=== PATIENT | male | born 1960 | race Caucasian/White ===

== ENCOUNTER 2020-05-09 04:57 | Inpatient (IN) | payer MEDICARE, MEDICAID, SELFPAY ==
[2020-05-09] VITALS (50 sets, daily range): BP systolic 51–144; BP diastolic 38–103; PULSE 90–162; RESP 16–48; TEMP 36–36.7; O2SAT 94–100; BMI 17.8; BMI 17.7
--- NOTE | ~2020-05-09 | CT_ITS ---
EXAMINATION: CT brain wo con DATE: 05/09/2020 07:38 INDICATION: Unresponsive. TECHNIQUE: Computed tomography (CT) of the head was performed without intravenous contrast. Sagittal and coronal reconstructions were performed. The mA was adjusted according to patient size. Iterative reconstruction technique was employed. The dose-length product was 529.67 mGy-cm. COMPARISON: None FINDINGS: No acute intracranial hemorrhage, acute infarction or abnormal extra axial fluid collection. Symmetri c enlargement of the ventricles which is disproportionate to the sulci. There is additional access va cuo dilation of the anterior and temporal horns of the lateral ventricles with corresponding encephal omalacia in the anterior aspect of the bilateral frontal frontal and temporal lobes. This could be re lated to prior infarcts although distribution suggests this may represent sequela of prior trauma. No mass/mass effect. Mucous retention cyst in the left sphenoid sinus. The orbits are normal. The left mastoid is hyperpneumatized. IMPRESSION: 1. No acute intracranial process. 2. Encephalomalacia in the anterior bilateral frontal lobes and temporal lobes which could represent sequela of old infarcts or trauma. Correlate with clinical history. 3. Prominent symmetric enlargement of the ventricles which is out of proportion to the sulci which co uld be related to either central predominant atrophy or normal pressure hydrocephalus (NPH: clinical triad ataxia/gait disturbance, dementia, urinary incontinence). Reviewed, dictated and finalized at location A. RVATIONS SPECIALIST IMPRESSION: 1. No acute intracranial process. 2. Encephalomalacia in the anterior bilateral frontal lobes and temporal lobes which could represent sequela of old infarcts or trauma. Correlate with clinica l history. 3. Prominent symmetric enlargement of the ventricles which is out of proportion to the sulci which could be related to either central predominant atrophy or n ormal pressure hydrocephalus (NPH: clinical triad ataxia/gait disturbance, shyla ntia, urinary incontinence).
--- NOTE | ~2020-05-09 | XR_ITS ---
EXAMINATION: XR abdomen/kub 1V DATE: 05/15/2020 09:58 INDICATION: Gastrostomy tube dysfunction. TECHNIQUE: A supine view of the abdomen on 2 radiographs was obtained. COMPARISON: Abdomen radiograph 05/09/2020 FINDINGS: There are no dilated loops of bowel. There is a gastrostomy tube overlying the left upper q uadrant. IMPRESSION: 1. Gastrostomy tube overlying the left upper quadrant. Reviewed, dictated and finalized at location A. R MAT MACHINE OPERATOR
--- NOTE | ~2020-05-09 | XR_ITS ---
EXAMINATION: XR chest 1V portable DATE: 05/16/2020 05:41 INDICATION: Respiratory failure. TECHNIQUE: A single frontal view of the chest was obtained. COMPARISON: Chest single view 05/15/2020, chest CT 05/09/2020 FINDINGS: There is a reticulonodular pattern throughout the lungs bilaterally. No pleural effusion or pneumothorax. The heart size is normal. The endotracheal tube tip is 1.8 cm above the ashleigh. A righ t internal jugular central venous catheter is seen with tip in the superior vena cava. IMPRESSION: 1. Stable diffuse lung disease, consistent with pneumonia. Reviewed, dictated and finalized at location A. AULIC DESIGN ENGINEER
--- NOTE | ~2020-05-09 | XR_ITS ---
EXAMINATION: XR chest ET placement, XR abdomen NG/feed tube insert DATE: 05/09/2020 06:12 INDICATION: Respiratory distress. Endotracheal tube placement. Nasogastric tube placement TECHNIQUE: 1. Frontal view of the chest was obtained. 2. Portable AP supine view of the abdomen was obtained. COMPARISON: None FINDINGS: Endotracheal tube tip 2.5 cm above the ashleigh. Nasogastric tube tip in proximal side port in the body of the stomach. Scattered subtle reticulonodular opacities is prominent at the right lower lung zone. No pleural effu ashley or pneumothorax. The cardiomediastinal silhouette is normal. A few old right rib fractures. IMPRESSION: 1. Lines and tubes in expected positions. 2. Subtle reticulonodular pattern which could represent mild pulmonary edema or pneumonia. Reviewed, dictated and finalized at location A. SPRING FORMER IMPRESSION: 1. Lines and tubes in expected positions. 2. Subtle reticulonodular pattern which could represent mild pulmonary edema or pneumonia.
--- NOTE | ~2020-05-09 | CT_ITS ---
EXAMINATION: CTA chest PE protocol DATE: 05/09/2020 07:38 INDICATION: Respiratory distress requiring ventilation TECHNIQUE: Computed tomography (CT) pulmonary angiogram of the chest was performed with 100 mL Omnipa que-350 intravenous contrast. Additional 3D reconstructions utilizing coronal maximum intensity proje ction (MIP) were performed. Automated exposure control and iterative reconstruction technique were em ployed. The dose-length product was 210.33 mGy-cm. COMPARISON: None FINDINGS: Good contrast opacification of the pulmonary arteries. There is moderate streak artifact from dense c ontrast in the superior vena cava and right atrium. Mild to moderate scattered respiratory motion art ifact. Together this decreases sensitivity in the segmental and particularly at the subsegmental pulm onary arteries throughout both lungs. New innumerable small centrilobular nodules throughout both monica gs with multiple additional small regions of more patchy consolidation throughout both lungs consiste nt with multifocal pneumonia. No pulmonary edema, pleural effusion or pneumothorax. Heart size is nor mal. No pericardial effusion. Mild likely reactive bilateral hilar and mediastinal lymphadenopathy. E ndotracheal tube tip 2.0 cm above the ashleigh. Nasogastric tube extends into the stomach. Visualized u pper abdomen is unremarkable. Several old healed bilateral rib fractures.. IMPRESSION: 1. No pulmonary embolism but limited study due to motion and streak artifact which decreases sensitiv ity for pulmonary embolism in the segmental and more significantly the subsegmental pulmonary arterie s. 2. Innumerable diffuse small centrilobular nodules and small regions of patchy consolidation consiste nt with widespread pneumonia including atypical fungal or mycobacterial. Reviewed, dictated and finalized at location A. E CUTTING MACHINE OPERATOR HELPER IMPRESSION: 1. No pulmonary embolism but limited study due to motion and streak artifact wh ich decreases sensitivity for pulmonary embolism in the segmental and more sign ificantly the subsegmental pulmonary arteries. 2. Innumerable diffuse small centrilobular nodules and small regions of patchy consolidation consistent with widespread pneumonia including atypical fungal or mycobacterial.
--- NOTE | ~2020-05-09 | XR_ITS ---
EXAMINATION: XR chest 1V portable DATE: 05/17/2020 06:17 INDICATION: Respiratory failure. TECHNIQUE: A single frontal view of the chest was obtained. COMPARISON: Chest CT 05/09/2020, chest single view 05/16/2020 FINDINGS: There are scattered small nodules in the lungs bilaterally. No pleural effusion or pneumoth orax. The heart size is normal. The endotracheal tube tip is 1.6 cm above the ashleigh. A right interna l jugular central venous catheter is seen with tip in the superior vena cava. There are old healed bi lateral rib fractures. IMPRESSION: 1. Stable diffuse lung disease, consistent with pneumonia. Reviewed, dictated and finalized at location A. L CAMPAIGN SPECIALIST
--- NOTE | ~2020-05-09 | US_ITS ---
EXAMINATION: US venous doppler LE RT DATE: 05/10/2020 11:28 INDICATION: Right lower limb swelling. TECHNIQUE: Grayscale ultrasound images without and with compression and Doppler ultrasound images of the right lower extremity veins were obtained. COMPARISON: None. FINDINGS: The visualized portions of right common femoral vein, profunda (deep) femoral vein, femoral vein, pop liteal vein, peroneal veins, posterior tibial veins, and greater saphenous vein outflow are patent. IMPRESSION: 1. No deep venous thrombosis. Reviewed, dictated and finalized at location B. TRICAL WIRING LINEMAN
--- NOTE | ~2020-05-09 | XR_ITS ---
EXAMINATION: XR chest 1V portable DATE: 05/15/2020 05:46 INDICATION: Pneumonia. TECHNIQUE: A single frontal view of the chest was obtained. COMPARISON: Chest single view 05/14/2020, chest CT 05/09/2020 FINDINGS: There are mild airspace opacities scattered throughout the lungs bilaterally. No pleural ef fusion or pneumothorax. The heart size is normal. The endotracheal tube tip is 2.4 cm above the jason a. A right internal jugular central venous catheter is seen with tip in the superior vena cava. IMPRESSION: 1. Stable diffuse lung disease, consistent with pneumonia. Reviewed, dictated and finalized at location A. CTION SOCIAL WORKER
--- NOTE | ~2020-05-09 | XR_ITS ---
EXAMINATION: XR chest 1V portable DATE: 05/10/2020 05:53 INDICATION: Respiratory failure TECHNIQUE: frontal view of the chest was obtained. COMPARISON: Chest radiograph dated 05/09/2020 FINDINGS: Endotracheal tube tip 1.3 cm above the ashleigh. Is a gastric tube tip in proximal side port in the sto mach. Right internal jugular central venous catheter with distal tip in the caudal superior vena cava . Elevation of the left hemidiaphragm. No significant interval change in a diffuse reticulonodular cari karyna throughout both lungs. No pleural effusion or pneumothorax. The cardiomediastinal silhouette is n ormal. IMPRESSION: 1. Diffuse bilateral lung disease concerning for pneumonia. Reviewed, dictated and finalized at location A. ARCH STATISTICIAN
--- NOTE | ~2020-05-09 | XR_ITS ---
EXAMINATION: XR chest 1V portable DATE: 05/13/2020 06:00 INDICATION: Respiratory failure TECHNIQUE: frontal view of the chest was obtained. COMPARISON: Chest radiograph dated 05/12/2020 FINDINGS: Endotracheal tube tip 4.7 cm above the ashleigh. Right internal jugular central venous catheter with di stal tip in the midsuperior vena cava. Interval improvement in the diffuse bilateral reticulonodular pattern and a few scattered subtle patc hy airspace opacities in both lungs. No pleural effusion or pneumothorax. The cardiomediastinal silho uette is normal. IMPRESSION: 1. Right decrease in bilateral diffuse lung disease consistent with improving pneumonia. Reviewed, dictated and finalized at location A. ULTING DATABASE ADMINISTRATOR IMPRESSION: 1. Right decrease in bilateral diffuse lung disease consistent with improving p neumonia.
--- NOTE | ~2020-05-09 | XR_ITS ---
EXAMINATION: XR chest 1V portable DATE: 05/14/2020 05:56 INDICATION: Respiratory failure. TECHNIQUE: A single frontal view of the chest was obtained. COMPARISON: Chest single view 05/13/2020, chest CT 05/09/2020 FINDINGS: There is a reticulonodular pattern throughout the lungs bilaterally. No pleural effusion or pneumothorax. The heart size is normal. The endotracheal tube tip is 1.4 cm above the ashleigh. A righ t internal jugular central venous catheter is seen with tip in the superior vena cava. IMPRESSION: 1. Stable diffuse lung disease, consistent with pneumonia. Reviewed, dictated and finalized at location A. CAR MAINTENANCE MECHANIC
--- NOTE | ~2020-05-09 | XR_ITS ---
EXAMINATION: XR chest 1V portable DATE: 05/11/2020 05:58 INDICATION: Respiratory failure. Mechanical ventilation. TECHNIQUE: frontal view of the chest was obtained. COMPARISON: Chest radiograph dated 05/10/2020 FINDINGS: Endotracheal tube tip 2.2 cm above the ashleigh. Right internal jugular central venous catheter with di stal tip at the caudal superior vena cava. Nasogastric tube tip in proximal side port in the body of the stomach. There appears to been slight improvement in the diffuse reticular nodular pattern throughout both monica gs. No pleural effusion or pneumothorax. The cardiomediastinal silhouette is normal. IMPRESSION: 1. Apparent improvement in diffuse bilateral lung disease consistent with pneumonia. Reviewed, dictated and finalized at location A. STERILIZER IMPRESSION: 1. Apparent improvement in diffuse bilateral lung disease consistent with pneum onia.
--- NOTE | ~2020-05-09 | XR_ITS ---
EXAMINATION: XR chest 1V portable DATE: 05/12/2020 06:10 INDICATION: Respiratory failure TECHNIQUE: frontal view of the chest was obtained. COMPARISON: Chest radiograph dated 05/11/2020 FINDINGS: Endotracheal tube now extends a couple millimeter beyond the ashleigh into the right mainstem bronchus. Right internal jugular central venous catheter with distal tip at the caudal superior vena cava. No significant interval change attending for differences in technique in the diffuse bilateral reticu lonodular pattern and subtle right infrahilar airspace opacities. No pleural effusion or pneumothorax . The cardiomediastinal silhouette is normal. IMPRESSION: 1. Endotracheal tube tip just within the right mainstem bronchus. Recommend withdrawal by 2.5 cm. Fin dings were discussed with Arron Davis, the nurse caring for the patient, at 7:55 AM. 2. No significant interval change in diffuse bilateral lung disease consistent with pneumonia. Reviewed, dictated and finalized at location A. NICIAN SEMICONDUCTOR DEVELOPMENT IMPRESSION: 1. Endotracheal tube tip just within the right mainstem bronchus. Recommend wit hdrawal by 2.5 cm. Findings were discussed with Arron Davis, the nurse caring for the patient, at 7:55 AM. 2. No significant interval change in diffuse bilateral lung disease consistent with pneumonia.
--- NOTE | ~2020-05-09 | XR_ITS ---
EXAMINATION: XR chest port-a-cath/central INDICATION: Central line insertion TECHNIQUE: Portable AP chest at 2211 hours COMPARISON: 0555 hours FINDINGS: A right internal jugular central venous catheter is been inserted which ends with its tip i n the distal superior vena cava. There is no pleural effusion or pneumothorax. The endotracheal tube ends approximately 2.9 cm above the ashleigh. The nasogastric tube is in the stomach. Diffuse patchy ai rspace opacities persist without significant change. The cardiomediastinal silhouette is stable. IMPRESSION: 1. Right internal jugular central venous catheter insertion without pneumothorax. 2. Diffuse airspace opacities, consistent with pneumonia. Reviewed, dictated and finalized at location A. OR STRATEGY ANALYST IMPRESSION: 1. Right internal jugular central venous catheter insertion without pneumothora x. 2. Diffuse airspace opacities, consistent with pneumonia.
--- NOTE | 2020-05-09 05:00 | ECG_ITS ---
Measurements Intervals [place] Rate: 148 P: 68 MT: 130 QRS: -60 QRSD: 80 T: 43 QT: 267 QTc: 420 Interpretive Statements SINUS TACHYCARDIA, POSSIBLE ATRIAL FLUTTER LEFT AXIS DEVIATION CANNOT RULE OUT SEPTAL INFARCT, AGE INDETERMINATE BASELINE ARTIFACT- II, III, AVF, V1-V2, V5-V6 ABNORMAL ECG Electronically Signed On 05-09-2020 7:07:12 MAIL CARRIER by Leon Balderas D.O.
--- NOTE | 2020-05-09 05:10 | PC.NURSE ---
KALEE Solomon in room. Verbal order read back. 20mg Etomidate given at 0510 100mg succs given at 0511 Intubation at 0515, 7.5 ET tube, 23 at the lips
[2020-05-09 05:20] LABS: Basophils Absolute Auto 0.1 K/mm3 (0.0-0.1); Basophils Percent Auto 0.3 % (0.2-1.2); Eosinophils Absolute Auto 0.3 K/mm3 (0-0.3); Hematocrit 39.5 % (42.0-52.0); Hemoglobin 11.8 g/dL (14.0-18.0); Immature Granulocyte Absolute 0.28 K/mm3 (0.00-0.031); Immature Granulocyte Percent A 0.8 % (0-0.5); Lymphocytes Absolute Auto 2.67 K/mm3 (0.9-3.2); Mean Corpuscular HGB Conc 29.9 g/dl (32-36); Mean Corpuscular Hemoglobin 24.3 pg (26-34); Mean Corpuscular Volume 81.3 fl (80-100); Mean Platelet Volume 10.4 fl (7.4-10.4); Monocytes Absolute Auto 1.5 K/mm3 (0.1-0.6); Monocytes Percent Auto 4.6 % (2.6-8.5); Neutrophils Absolute Auto 28.4 K/mm3 (1.3-6.7); Neutrophils Percent Auto 85.3 % (45.5-73.1); Platelet Count Result 651 k/mm3 (150-375); Red Blood Count 4.86 M/mm3 (4.6-6.20); Red Cell Distribution Width 19.7 % (11.5-14.5); White Blood Count 33.3 K/mm3 (4.5-10.0)
[2020-05-09] MEDS: SODIUM CHLORIDE 0.9% IV 1,000 ML 999 ML IV CONT ×3 (05:30→10:05)
[2020-05-09 05:35] LABS: Alanine Aminotransferase 23 U/L (4-50); Albumin Level 3.9 g/dL (3.5-5.1); Alkaline Phosphatase 112 U/L (38-126); Anion Gap 8 mmol/L (8-16); Aspartate Amino Transferase 52 U/L (17-59); Bilirubin,Total 0.4 mg/dL (0.2-1.3); Blood Urea Nitrogen 18 mg/dL (9-20); Calcium 9.6 mg/dL (8.4-10.2); Carbon Dioxide 31 mmol/L (22-30); Chloride 102 mmol/L (98-107); Estimated CRCL calculation 59 ml/min; Estimated Glomerular Filt Rate > 60; Glucose 147 mg/dL (75-110); Magnesium 2.2 mg/dL (1.6-2.3); Potassium 5.1 mmol/L (3.4-5.0); Sodium 141 mmol/L (137-145)
--- NOTE | 2020-05-09 05:36 | ED.SOB ---
HPI - SOB/Dyspnea General Chief Complaint: Shortness of Breath/Dyspnea <Renata Solomon MD - Last Filed: 05/09/20 23:45> Stated Complaint: unresponsive resp distress <Renata Solomon MD - Last Filed: 05/09/20 23:45> Time Seen by Provider: 05/09/20 05:00 <Renata Solomon MD - Last Filed: 05/09/20 23:45> Source: EMS <Renata Solomon MD - Last Filed: 05/09/20 23:45> Mode of arrival: EMS <Renata Solomon MD - Last Filed: 05/09/20 23:45> Limitations: clinical condition <Renata Solomon MD - Last Filed: 05/09/20 23:45> History of Present Illness HPI Narrative: This patient is a 60 year old male who presents from [facility] for evaluation of respiratory distress. Nursing staff reports they noticed patient was in respiratory distress this morning when they went into his room. His oxygen saturation was 70% on room . They report patien was discharged from [facility] for an issue with g tube feedings. It is unclear what patient's medical history is at this point. EMS placed patient on NRB due to his respiratory distress. PAtient is nonverbal , but his baseline cognitive function is unclear. <Renata Solomon MD - Last Filed: 05/09/20 23:45> MD elicited complaint: shortness of breath <Renata Solomon MD - Last Filed: 05/09/20 23:45> Related Data Home Medications: Home Medications Medication Instructions Recorded Confirmed acetaminophen 650 mg PO Q6H PRN 05/09/20 buspirone 10 mg PO TID 05/09/20 diltiazem HCl 30 mg PO TID 05/09/20 famotidine 20 mg PO BID 05/09/20 folic acid 20 mg PO DAILY 05/09/20 ipratropium-albuterol 3 ml INHALATION QID PRN 05/09/20 lorazepam [Ativan] 0.5 mg PO DAILY PRN 05/09/20 <Renata Solomon MD - Last Filed: 05/09/20 23:45> Allergies/Adverse Reactions: Allergies Allergy/AdvReac Type Severity Reaction Status Date / Time No Known Allergies Allergy Verified 05/09/20 08:39 <Renata Solomon MD - Last Filed: 05/09/20 23:45> Review of Systems Review of Systems: ROS unobtainable: Yes unobtainable due to medical condition <Renata Solomon MD - Last Filed: 05/09/20 23:45> [facility] Past Medical History Medical History: Medical History (Updated 05/09/20 @ 09:52 by Kofi Bolaños MD) Anemia Anxiety COPD (chronic obstructive pulmonary disease) Disorder of autonomic nervous system Dysphagia With G-Tube placement Encephalopathy chronic Hydrocephalus Hypertension Paroxysmal tachycardia <Renata Solomon MD - Last Filed: 05/09/20 23:45> Surgical History Surgical History: Surgical History History of tracheostomy x2 <Renata Solomon MD - Last Filed: 05/09/20 23:45> Family History Family History: Family History Mother Endometrial cancer Father Hypertension Sibling Seizure <Renata Solomon MD - Last Filed: 05/09/20 23:45> Social History Social History: Social History Social History: No hx of tobacco use but heavy alcohol use per sister. She was unsure if patient has hx of drug use. Patient is a [place] [facility] resident. He is full code Smoking status: Never smoker Alcohol intake: never Substance use: unknown Gender identity (if verbalized by the patient): Male Spiritual care concerns: No <Renata Solomon MD - Last Filed: 05/09/20 23:45> Exam Const: General: ill appearing acutely <Renata Solomon MD - Last Filed: 05/09/20 23:45> Other: patient will eyes open does not seem to respond <Renata Solomon MD - Last Filed: 05/09/20 23:45> HENMT: Head: normocephalic and atraumatic <Renata Solomon MD - Last Filed: 05/09/20 23:45> Throat: other (old tracheostomy scar) <Renata Solomon MD - Last Filed: 05/09/20 23:45> Resp: Effort & Inspection: labored, tachypneic and uses
[2020-05-09 05:41] LABS: CRP 5.5 mg/dL (<1.0)
[2020-05-09] MEDS: LORazepam INJ (*CRX) 2 MG/ML VIAL IV PUSH (05:41)
[2020-05-09] MEDS: fentaNYL CITRATE INJ (*CRX) 100 MCG/2 ML VIAL 50 MCG IV PUSH (05:44)
[2020-05-09 05:47] LABS: NT Pro B Type Natriuretic Pept 187 PG/ML (5-100); Troponin I < 0.012 ng/mL (0.000-0.034)
[2020-05-09] MEDS: PROPOFOL IV EMULSION 100 ML 1.49 MG IV CONT (05:49)
[2020-05-09 05:54] LABS: Alveolar/Arterial O2 Gradient 543.5 mmHg; HCO3 ABG 25.2 mEq/l (22.0-26.0); Oxygen Content ABG 16.2 %vol (16.0-22.0); Oxygen Saturation ABG 98.1 % (95.0-100.0); PCO2 ABG 48.3 mmHg (35.0-45.0); PO2 ABG 121.2 mmHg (80.0-100.0); Total Hemoglobin 11.7 g/dL (12.0-18.0); pH ABG 7.335 (7.350-7.450)
[2020-05-09 05:55] LABS: Device NON-REBREATHER MASK; Fractional Inspired Oxygen 100 %; Modified Allen's Test Pass; PO2 FiO2 Ratio Arterial Blood 1.21 %; Site Drawn LEFT RADIAL
[2020-05-09 05:55] LABS: Lactic Acid Reflex 3.9 mmol/L (0.7-2.1)
--- NOTE | 2020-05-09 05:56 | PC.NURSE ---
Radiology at bedside
[2020-05-09] MEDS: ROCURONIUM BROMIDE 50 MG/5 ML VIAL IV PUSH (06:06)
--- NOTE | 2020-05-09 06:06 | PC.NURSE ---
Dr. Solomon stopped propfol drip.
[2020-05-09 06:45] LABS: INR 1.2; Prothrombin Time 15.5 Seconds (11.1-14.7)
[2020-05-09 06:46] LABS: Partial Thromboplastin Time 39.4 SECONDS (22.3-36.8)
[2020-05-09 06:52] LABS: Add Urine Microscopic? YES; Appearance Urine Clear (Clear); Bilirubin Urine Negative (Negative); Blood Urine Negative (Negative); Color Urine Yellow (Yellow); Glucose Urine UA Negative (Negative); Ketones Urine Negative (Negative); Leukocyte Esterase Ur Trace LEU/UL (Negative); Mucus Urine Rare /lpf; Nitrate Urine Negative (Negative); Protein Urine 1+ mg/dL (Negative); Specific Grav Ur 1.028 (1.001-1.035); Urobilinogen Urine Negative mg/dL (<2.0)
--- NOTE | 2020-05-09 07:25 | PM.IMHP ---
H&P: HPI History of Present Illness Date/Time: 05/09/20 07:25 Chief complaint: Acute Respiratory failure with hypoxia Narrative: King Sullivan is a 60yo male with chronic encephalopathy and HTN here for acute respiratory distress. Patient currently intubated and thus unable to provide history. Patient resides at a custodial and has hx of respiratory failure with trach and dysphagia with G-tube in place. Spoke with nurse at [facility] (Nicki). Patient has chronic nausea with scheduled Zofran. There is concern for chronic aspiration. Mental status alert to himself. He will shake head Y/N but does not respond in general. Patient recently at [facility] for G-tube issue and returned to custodial on 05/07. Patient was tested for COVID on 05/08 with results pending (this is routine). Patient developed respiratory difficulty this morning. He had a BP 110/78, pulse 148, RR 32 76% on room air. EMS called: BP 148/94, pulse 150, RR 30 100% on NRB. In the ER, BP 144/103, HR 162 and 48 RR. WBC 33.3, Hgb 11.8, Potassium 5.1, Lactic 3.9. CXR showing patchy airspace opacities. CT brain showing hydrocephalus and encephalomalacia but no acute process. CT Chest pending. Patient intubated in the ED and admitted for further care. Review of Systems Review of Systems: ROS unobtainable: Yes unobtainable due to mental status PMFSH Past Medical History Medical History (Updated 05/11/20 @ 20:23 by Clint Leigh MD) Anemia Anxiety COPD (chronic obstructive pulmonary disease) Disorder of autonomic nervous system Dysphagia With G-Tube placement Encephalopathy chronic Hydrocephalus Hypertension Paroxysmal tachycardia Surgical History Surgical History History of tracheostomy x2 Family History Family History Mother Endometrial cancer Father Hypertension Sibling Seizure Social History Social History Social History: No hx of tobacco use but heavy alcohol use per sister. She was unsure if patient has hx of drug use. Patient is a custodial resident. He is full code Smoking status: Never smoker Alcohol intake: never Substance use: unknown Gender identity (if verbalized by the patient): Male Spiritual care concerns: No Meds Home Medications and Allergies Home Medications Medication Instructions Recorded Confirmed Type acetaminophen 650 mg PO Q6H PRN 05/09/20 05/10/20 History buspirone 10 mg PO TID 05/09/20 05/10/20 History diltiazem HCl 30 mg PO Q6H 05/09/20 05/10/20 History famotidine 20 mg PO BID 05/09/20 05/10/20 History ipratropium-albuterol 3 ml INHALATION QID PRN 05/09/20 05/10/20 History lorazepam [Ativan] 0.25 mg PO HS PRN 05/09/20 05/10/20 History folic acid 1 mg PO DAILY 05/10/20 05/10/20 History Allergies Allergy/AdvReac Type Severity Reaction Status Date / Time No Known Allergies Allergy Verified 05/09/20 08:39 Vital Signs Vital Signs - 24 hr 05/09/20 05:01 05/09/20 05:30 05/09/20 05:49 Temperature 97.8 F Pulse Rate 162 H 121 H 115 H Respiratory Rate 48 H Blood Pressure 144/103 H Pulse Oximetry 96 99 05/09/20 06:50 Temperature Pulse Rate Respiratory Rate Blood Pressure 110/80 Pulse Oximetry Exam Narrative: Exam Narrative: AF 97.8 135/90 126 21 100% MV Gen - chronically ill appearing male currently intubated HEENT - normocephalic. Atraumatic. Pupils mildly reactive. NGT secured. Oropharynx not visualized due to ETT secured. Neck - neck was supple. No dominant adenopathy or masses. Chest - lungs clear anteriorly and in flanks CV - tachycardic, regular. S1-S2. Abd - abdomen was soft. Nondistended. Positive bowel sounds. GTube site clean and dry Ext - no pedal edema. bilateral LE contractures Neuro - patient is sedated Psych - unable to assess Skin - warm and dry. No rashe
--- NOTE | 2020-05-09 08:21 | PC.NURSE ---
Pt bucking at the tube. Increased rate to 10 mcg
[2020-05-09] MEDS: SODIUM CHLORIDE 0.9% IV 1,000 ML 125 ML IV CONT ×3 (08:30→18:53)
[2020-05-09] MEDS: PROPOFOL IV EMULSION 200 MG/20 ML VIAL 20 MG IV PUSH (08:36)
[2020-05-09 08:41] LABS: Reflex Lactic Acid Yes or No Add Lactic
--- NOTE | 2020-05-09 09:10 | ADMGEN ---
This patient, King Sullivan, was admitted to Intensive Care Unit-5. Patient/family oriented to hospital policies and general routines including ID bracelet, bed and alarms, visiting hours, pain management, procedures, bathroom and other care routines, personal items, smoking policy, room service/diet, and visiting hours. Information on how to activate the Rapid Response Team has been discussed. Patient/Family are encouraged to report perceived risks to care and to ask questions if they do not understand what they are told or what they should do.
[2020-05-09] MEDS: LORazepam INJ (*CRX) 2 MG/ML VIAL (09:20)
--- NOTE | 2020-05-09 09:43 | WPDCNINT ---
Assessment and Plan Assessment and plan (1) Acute respiratory failure with hypoxemia: Code(s): J96.01 - Acute respiratory failure with hypoxia Status: Acute Assessment and Plan: Acute Respiratory failure secondary to pneumonia Continue full mechanical ventilation support to prevent hypoxemia/hypercarbia and end organ damage. ABG, vent settings and CT chest reviewed CT showed IMPRESSION: 1. No pulmonary embolism but limited study due to motion and streak artifact which decreases sensitivity for pulmonary embolism in the segmental and more significantly the subsegmental pulmonary arteries. 2. Innumerable diffuse small centrilobular nodules and small regions of patchy consolidation consistent with widespread pneumonia including atypical fungal or mycobacterial. Will repeat ABG now. Low tidal volume ventilation strategy to prevent volutrauma Bronchodilators (2) Severe sepsis: Code(s): A41.9 - Sepsis, unspecified organism; R65.20 - Severe sepsis without septic shock Status: Acute Assessment and Plan: Secondary to pneumonia Blood culture sent and pending Check sputum culture Change antibiotics to vancomycin and cefepime until cultures are back Recheck lactic acid level Will give another 1 L saline bolus. Patient has received 2 L in the ER Continue IV fluid (3) COPD (chronic obstructive pulmonary disease): Code(s): J44.9 - Chronic obstructive pulmonary disease, unspecified Status: Acute Assessment and Plan: Bronchodilators (4) Person under investigation for COVID-19: Code(s): Z20.828 - Contact with and (suspected) exposure to other viral communicable diseases Status: Acute Assessment and Plan: COVID-19 suspected. SARS-CoV-2 PCR sent and results pending Patient is in Airborne, Droplet and Contact Isolation (5) DVT prophylaxis: Code(s): Z29.9 - Encounter for prophylactic measures, unspecified Status: Acute Assessment and Plan: Lovenox (6) Encephalopathy: Code(s): G93.40 - Encephalopathy, unspecified Status: Acute Assessment and Plan: Patient is nonverbal at baseline Head CT done in ER MPRESSION: 1. No acute intracranial process. 2. Encephalomalacia in the anterior bilateral frontal lobes and temporal lobes which could represent sequela of old infarcts or trauma. Correlate with clinical history. 3. Prominent symmetric enlargement of the ventricles which is out of proportion to the sulci which could be related to either central predominant atrophy or normal pressure hydrocephalus (NPH: clinical triad ataxia/gait disturbance, dementia, urinary incontinence) (7) Dysphagia: Code(s): R13.10 - Dysphagia, unspecified Status: Acute Assessment and Plan: Patient has a PEG tube. Place it on low intermittent suction at this time Additional Plan DVT prophylaxis -Lovenox Stress ulcer prophylaxis -start PPI Nutrition -NPO at this Code Status - Full Code Will obtain records from [facility] Total Critical Care Time - 35 minutes Due to a high probability of clinically significant, life threatening deterioration, the patient required my highest level of preparedness to intervene emergently and I personally spent this critical care time directly and personally managing the patient. This critical care time included obtaining a history; examining the patient; pulse oximetry; ordering and review of studies; arranging urgent treatment with development of a management plan; evaluation of patient's response to treatment; frequent reassessment; and discussions with other providers. It was exclusive of separately billable procedures and treating other patients and teaching time. Please see Assessment and Plan section and the rest of the note for further information on patient assessment and treatment Demi Chef Consult Note Consult date: 05/09/20 Time Seen: 09:20 HPI: King Sullivan is a 60 year old male w
[2020-05-09] MEDS: FENTANYL 2,500MCG/NS250ML(*CRX 2,500 MCG/250 ML BAG IV CONT (09:55)
[2020-05-09] MEDS: ENOXAPARIN 40 MG/0.4 ML SYRINGE SUB-Q (11:02)
[2020-05-09] MEDS: PANTOPRAZOLE SODIUM IV 40 MG VIAL IV PUSH (11:02)
[2020-05-09] MEDS: MIDAZOLAM HCL (*CRX) 2 MG/2 ML VIAL 4 MG IV PUSH (11:45)
[2020-05-09 12:22] LABS: Anion Gap 7 mmol/L (8-16); Blood Urea Nitrogen 17 mg/dL (9-20); Calcium 7.8 mg/dL (8.4-10.2); Carbon Dioxide 26 mmol/L (22-30); Chloride 107 mmol/L (98-107); Estimated CRCL calculation 59 ml/min; Estimated Glomerular Filt Rate > 60; Glucose 117 mg/dL (75-110); Lactic Acid Reflex 1.8 mmol/L (0.7-2.1); Potassium 4.3 mmol/L (3.4-5.0); Sodium 140 mmol/L (137-145)
[2020-05-09] MEDS: busPIRone HCL 10 MG TABLET FEED TUBE ×2 (12:46→16:53)
[2020-05-09 13:19] LABS: Alveolar/Arterial O2 Gradient 327.3 mmHg; Base Excess ABG -4.1 mEq/l (+/-2.0); Fractional Inspired Oxygen 65 %; HCO3 ABG 22.1 mEq/l (22.0-26.0); Oxygen Content ABG 13.4 %vol (16.0-22.0); Oxygen Saturation ABG 95.7 % (95.0-100.0); Oxyhemoglobin 94.7 % THb (90.0-100.0); PCO2 ABG 45.3 mmHg (35.0-45.0); PO2 ABG 86.9 mmHg (80.0-100.0); PO2 FiO2 Ratio Arterial Blood 1.34 %; pH ABG 7.306 (7.350-7.450)
[2020-05-09 13:20] LABS: Arterial Blood Gas PEEP 5 cmH2O; Arterial Blood Gas Tidal Volume 400 ml; Arterial Blood Gas Vent Mode ASSIST CONTROL; Arterial Blood Gas Ventilator rate 16 /MIN; Device VENTILATOR; Modified Allen's Test Pass; Site Drawn RIGHT RADIAL
[2020-05-09 13:47] LABS: Glucose Point of Care 113 (65-105)
[2020-05-09 14:21] LABS: SARS-CoV-2 RNA PCR Negative
[2020-05-09] MEDS: SODIUM CHLORIDE 0.9% IV 500 ML IV CONT (19:10)
[2020-05-09] MEDS: NOREPINEPHRINE 8 MG/D5W 250 ML 8 MG/250 ML BAG 9.38 MG IV CONT (22:00)
--- NOTE | 2020-05-09 22:18 | P.PCNBED_ITS ---
Procedures Central Line Placement Right IJ: Central Line Date: 05/09/20 Central Line Time: 21:45 The patient/family/POA understand(s) and acknowledge(s) the need to proceed with central venous catheter insertion as an important element of the patient's clinical management.: Yes Time Out Performed: Yes Patient Position: supine Patient placed on monitor/pulse ox: Yes Provider Prep: mask, sterile gown, sterile gloves, Max. sterile barrier precautions, cap and hand hygiene with conventional soap/water or alcohol based hand rub Central line prep: 2% Chlorhexidine scrub Central line lumen inserted: triple [place]: 7 Length (cm): 16 Depth of Insertion (cm): 15 Post Procedure: sutured in place, good blood return, all ports aspirated, flushed, capped, transparent dressing, securement product and aseptic technique maintained throughout procedure Post procedure x-ray: tip of catheter in good position and no pneumothorax seen Patient tolerated procedure: well Complications: none Additional comments: Date of service was 05/09/2020 at 21:45 hrs.
[2020-05-10] VITALS (34 sets, daily range): BP systolic 85–140; BP diastolic 56–87; PULSE 82–114; RESP 16–19; TEMP 36.2–36.7; O2SAT 96–99; BMI 21.0
[2020-05-10] MEDS: SODIUM CHLORIDE 0.9% IV 1,000 ML 100 ML IV CONT (03:28)
[2020-05-10] MEDS: CENTRAL LINE FLUSH 10 ML IV PUSH ×4 (03:29→23:18)
[2020-05-10 03:34] LABS: Basophils Absolute Auto 0.1 K/mm3 (0.0-0.1); Basophils Percent Auto 0.3 % (0.2-1.2); Eosinophils Absolute Auto 0.9 K/mm3 (0-0.3); Eosinophils Percent Auto 4.2 % (0-4.4); Hematocrit 24.2 % (42.0-52.0); Hemoglobin 7.2 g/dL (14.0-18.0); Immature Granulocyte Percent A 0.5 % (0-0.5); Lymphocytes Absolute Auto 1.32 K/mm3 (0.9-3.2); Lymphocytes Percent Auto 6.4 % (18.3-44.2); Mean Corpuscular HGB Conc 29.8 g/dl (32-36); Mean Corpuscular Hemoglobin 24.4 pg (26-34); Monocytes Absolute Auto 1.4 K/mm3 (0.1-0.6); Monocytes Percent Auto 6.9 % (2.6-8.5); Neutrophils Absolute Auto 16.9 K/mm3 (1.3-6.7); Neutrophils Percent Auto 81.7 % (45.5-73.1); Platelet Count Result 410 k/mm3 (150-375); Red Blood Count 2.95 M/mm3 (4.6-6.20); Red Cell Distribution Width 18.9 % (11.5-14.5); White Blood Count 20.7 K/mm3 (4.5-10.0)
[2020-05-10 04:24] LABS: Alanine Aminotransferase 32 U/L (4-50); Albumin Level 2.4 g/dL (3.5-5.1); Alkaline Phosphatase 67 U/L (38-126); Anion Gap 3 mmol/L (8-16); Aspartate Amino Transferase 72 U/L (17-59); Bilirubin,Total 0.3 mg/dL (0.2-1.3); Blood Urea Nitrogen 17 mg/dL (9-20); Calcium 8.2 mg/dL (8.4-10.2); Carbon Dioxide 25 mmol/L (22-30); Chloride 110 mmol/L (98-107); Estimated CRCL calculation 71 ml/min; Estimated Glomerular Filt Rate > 60; Glucose 89 mg/dL (75-110); Magnesium 1.7 mg/dL (1.6-2.3); Potassium 4.1 mmol/L (3.4-5.0); Sodium 138 mmol/L (137-145)
[2020-05-10 05:57] LABS: Alveolar/Arterial O2 Gradient 132.8 mmHg; Base Excess ABG -4.2 mEq/l (+/-2.0); Carboxyhemoglobin 0.3 % THb (0-2.0); Fractional Inspired Oxygen 40 %; HCO3 ABG 20.7 mEq/l (22.0-26.0); Methemoglobin ABG 0.4 %THb (0-1.5); Oxygen Content ABG 11.6 %vol (16.0-22.0); Oxygen Saturation ABG 97.9 % (95.0-100.0); Oxyhemoglobin 96.7 % THb (90.0-100.0); PCO2 ABG 37.1 mmHg (35.0-45.0); PO2 ABG 109.7 mmHg (80.0-100.0); PO2 FiO2 Ratio Arterial Blood 2.74 %; Reduced Hemoglobin 2.6 %THb (0-5.0); Total Hemoglobin 8.4 g/dL (12.0-18.0); pH ABG 7.365 (7.350-7.450)
[2020-05-10 05:58] LABS: Device VENTILATOR; Modified Allen's Test Unable to perform; Site Drawn RIGHT RADIAL
[2020-05-10 05:59] LABS: Arterial Blood Gas PEEP 5 cmH2O; Arterial Blood Gas Tidal Volume 400 ml; Arterial Blood Gas Vent Mode CMV; Arterial Blood Gas Ventilator rate 16 /MIN
[2020-05-10] MEDS: LACTATED RINGERS 1,000 ML 100 ML IV CONT (07:46)
[2020-05-10] MEDS: busPIRone HCL 10 MG TABLET FEED TUBE ×2 (09:33→17:10)
[2020-05-10] MEDS: PANTOPRAZOLE SODIUM IV 40 MG VIAL IV PUSH (09:34)
[2020-05-10] MEDS: ENOXAPARIN 40 MG/0.4 ML SYRINGE SUB-Q (09:34)
--- NOTE | 2020-05-10 12:31 | PCDIET ---
ICU Rounding Note: MD ordered tube feedings: Vital 1.2 at goal of 50mL/hr x 22 hours/day will provide 1320kcal, 82g protein and 892mL free water. Recommend 30mL water flush every 4 hours at this time. Last recorded weight is 59.1kg which is significantly increased. +I/O. Decreased urine output noted. Bowel Motility: +BM x 1 on 05/09/20. Labs Reviewed: Hgb (7.2), Hct (24.2), Ca (8.2) Meds Noted: Azithromycin, Cefepime, Fentanyl, LR at 100mL/hr, Versed, Levophed, Protonix, Vancomycin Additional Notes: Mepilex to old skin tear on coccyx. Following daily in ICU rounds. Assessing/reassessing every Thursday/Thursday.
[2020-05-10 13:00] LABS: Hematocrit 24.4 % (42.0-52.0); Hemoglobin 7.4 g/dL (14.0-18.0); Mean Corpuscular HGB Conc 30.3 g/dl (32-36); Mean Corpuscular Hemoglobin 24.7 pg (26-34); Mean Corpuscular Volume 81.3 fl (80-100); Mean Platelet Volume 10.1 fl (7.4-10.4); Platelet Count Result 431 k/mm3 (150-375); Red Cell Distribution Width 18.7 % (11.5-14.5); White Blood Count 15.3 K/mm3 (4.5-10.0)
--- NOTE | 2020-05-10 13:41 | WPDINTPN ---
Progress Note: A&P Assessment and Plan (1) Acute respiratory failure with hypoxemia: Code(s): J96.01 - Acute respiratory failure with hypoxia Status: Acute Assessment and Plan: Acute Respiratory failure secondary to pneumonia and septic shock Continue full mechanical ventilation support to prevent hypoxemia/hypercarbia and end organ damage. ABG, vent settings and CT chest reviewed CT showed IMPRESSION: 1. No pulmonary embolism but limited study due to motion and streak artifact which decreases sensitivity for pulmonary embolism in the segmental and more significantly the subsegmental pulmonary arteries. 2. Innumerable diffuse small centrilobular nodules and small regions of patchy consolidation consistent with widespread pneumonia including atypical fungal or mycobacterial. Low tidal volume ventilation strategy to prevent volutrauma Bronchodilators Sedation holiday (2) Septic shock: Code(s): A41.9 - Sepsis, unspecified organism; R65.21 - Severe sepsis with septic shock Status: Acute Assessment and Plan: Secondary to pneumonia Blood and sputum culture sent and pending Continue vancomycin and cefepime until cultures are back Patient adequately volume resuscitated will hold further fluids Continue Levophed Lactic acid has normalized (3) COPD (chronic obstructive pulmonary disease): Code(s): J44.9 - Chronic obstructive pulmonary disease, unspecified Status: Acute Assessment and Plan: Bronchodilators (4) Person under investigation for COVID-19: Code(s): Z20.828 - Contact with and (suspected) exposure to other viral communicable diseases Status: Acute Assessment and Plan: COVID-19 suspected. SARS-CoV-2 PCR sent and was negative Isolation discontinued (5) DVT prophylaxis: Code(s): Z29.9 - Encounter for prophylactic measures, unspecified Status: Acute Assessment and Plan: Lovenox (6) Encephalopathy: Code(s): G93.40 - Encephalopathy, unspecified Status: Acute Assessment and Plan: Patient is nonverbal at baseline and has history of hydrocephalus Head CT done in ER which was consistent with hydrocephalus MPRESSION: 1. No acute intracranial process. 2. Encephalomalacia in the anterior bilateral frontal lobes and temporal lobes which could represent sequela of old infarcts or trauma. Correlate with clinical history. 3. Prominent symmetric enlargement of the ventricles which is out of proportion to the sulci which could be related to either central predominant atrophy or normal pressure hydrocephalus (NPH: clinical triad ataxia/gait disturbance, dementia, urinary incontinence) Sedation holiday today (7) Dysphagia: Code(s): R13.10 - Dysphagia, unspecified Status: Acute Assessment and Plan: Patient has a PEG tube. Start tube feedings today (8) Edema: Code(s): R60.9 - Edema, unspecified Status: Acute Assessment and Plan: Swelling of right foot. Dopplers were done which were negative for DVT Additional Plan DVT prophylaxis -Lovenox Stress ulcer prophylaxis -continue PPI Nutrition -start tube feeding Code Status - Full Code per patient's sister Patient has been in and out of residential facility [facility] in hospitals recently,. He was recently at [facility] and [facility]. Patient now is readmitted within couple of days of his transfer to [facility] Will obtain records from [facility] Total Critical Care Time - 33 minutes Due to a high probability of clinically significant, life threatening deterioration, the patient required my highest level of preparedness to intervene emergently and I personally spent this critical care time directly and personally managing the patient. This critical care time included obtaining a history; examining the patient; pulse oximetry; ordering and review of studies; arranging urge
[2020-05-10] MEDS: NOREPINEPHRINE 8 MG/D5W 250 ML 8 MG/250 ML BAG 11.25 MG IV CONT (17:15)
[2020-05-11] VITALS (23 sets, daily range): BP systolic 97–124; BP diastolic 59–97; PULSE 65–112; RESP 16–34; TEMP 36.3–37.2; O2SAT 95–99
[2020-05-11 03:43] LABS: Hematocrit 22.3 % (42.0-52.0); Hemoglobin 7.1 g/dL (14.0-18.0); Mean Corpuscular HGB Conc 31.8 g/dl (32-36); Mean Corpuscular Hemoglobin 25.3 pg (26-34); Mean Corpuscular Volume 79.4 fl (80-100); Mean Platelet Volume 9.9 fl (7.4-10.4); Platelet Count Result 386 k/mm3 (150-375); Red Blood Count 2.81 M/mm3 (4.6-6.20); Red Cell Distribution Width 18.4 % (11.5-14.5); White Blood Count 8.6 K/mm3 (4.5-10.0)
[2020-05-11] MEDS: CENTRAL LINE FLUSH 10 ML IV PUSH ×4 (05:01→21:15)
[2020-05-11 06:11] LABS: Alanine Aminotransferase 31 U/L (4-50); Albumin Level 2.4 g/dL (3.5-5.1); Alkaline Phosphatase 70 U/L (38-126); Anion Gap 2 mmol/L (8-16); Aspartate Amino Transferase 53 U/L (17-59); Bilirubin,Total 0.3 mg/dL (0.2-1.3); Blood Urea Nitrogen 7 mg/dL (9-20); Calcium 8.2 mg/dL (8.4-10.2); Carbon Dioxide 28 mmol/L (22-30); Chloride 105 mmol/L (98-107); Estimated CRCL calculation 109 ml/min; Estimated Glomerular Filt Rate > 60; Glucose 106 mg/dL (75-110); Magnesium 1.6 mg/dL (1.6-2.3); Potassium 3.5 mmol/L (3.4-5.0); Sodium 135 mmol/L (137-145)
[2020-05-11 06:46] LABS: Alveolar/Arterial O2 Gradient 115.9 mmHg; Base Excess ABG -0.6 mEq/l (+/-2.0); Carboxyhemoglobin 0.3 % THb (0-2.0); Device VENTILATOR; Fractional Inspired Oxygen 40 %; HCO3 ABG 23.7 mEq/l (22.0-26.0); Methemoglobin ABG 0.3 %THb (0-1.5); Modified Allen's Test Unable to perform; Oxygen Content ABG 12.6 %vol (16.0-22.0); Oxygen Saturation ABG 98.6 % (95.0-100.0); Oxyhemoglobin 97.4 % THb (90.0-100.0); PCO2 ABG 37.4 mmHg (35.0-45.0); PO2 ABG 126.3 mmHg (80.0-100.0); PO2 FiO2 Ratio Arterial Blood 3.16 %; Site Drawn RIGHT RADIAL
[2020-05-11 06:47] LABS: Arterial Blood Gas PEEP 5 cmH2O; Arterial Blood Gas Tidal Volume 400 ml; Arterial Blood Gas Vent Mode ASSIST CONTROL; Arterial Blood Gas Ventilator rate 16 /MIN
[2020-05-11] MEDS: PANTOPRAZOLE SODIUM IV 40 MG VIAL IV PUSH (08:35)
[2020-05-11] MEDS: busPIRone HCL 10 MG TABLET FEED TUBE ×3 (08:35→16:18)
[2020-05-11] MEDS: ENOXAPARIN 40 MG/0.4 ML SYRINGE SUB-Q (08:35)
[2020-05-11] MEDS: POTASSIUM CHLORIDE 20 MEQ PACKET (FOR LIQUID) 40 MEQ FEED TUBE (09:04)
[2020-05-11] MEDS: MAGNESIUM SULF 2 GM/WATER 50ML 2 GM/50 ML BAG IVPB (09:22)
[2020-05-11] MEDS: LACTATED RINGERS 1,000 ML 20 ML IV CONT (09:56)
--- NOTE | 2020-05-11 11:31 | PCDIET ---
Nutrition Follow-Up Complete: Nutrition Diagnosis: Inadequate infusion of enteral nutrition related to respiratory failure as evidenced by NPO. Nutrition Goal: Patient to meet estimated nutritional needs. Goal in progress. Patient has been tolerating Vital 1.2 at 40mL/hr. RN plans to increase to goal of 50mL/hr now. Continuing 30mL water flushes every 4 hours. Last recorded weight is 59.7 kg which is stable with last review. Bowel Motility: Last documented BM on 05/09/20. Labs Reviewed: Hgb (7.1), Hct (22.3), BUN (7), Cr (0.5), Na (135), Alb (2.4), Devante Ca (9.48) Meds Noted: Zithromax, Magnesium Sulfate, KCl, Cefepime, Fentanyl, Levophed, Protonix, LR at 30mL/hr, Versed, Vancomycin Additional Notes: Mepilex to old skin tear on coccyx. Will continue to monitor with same goal. Nutrition Monitoring and Evaluation: Follow up every Thursday/Thursday.
--- NOTE | 2020-05-11 15:15 | WPDINTPN ---
Progress Note: A&P Assessment and Plan (1) Acute respiratory failure with hypoxemia: Code(s): J96.01 - Acute respiratory failure with hypoxia Status: Acute Assessment and Plan: Acute Respiratory failure secondary to pneumonia and septic shock ABG, vent settings and CT chest reviewed CT showed IMPRESSION: 1. No pulmonary embolism but limited study due to motion and streak artifact which decreases sensitivity for pulmonary embolism in the segmental and more significantly the subsegmental pulmonary arteries. 2. Innumerable diffuse small centrilobular nodules and small regions of patchy consolidation consistent with widespread pneumonia including atypical fungal or mycobacterial. Low tidal volume ventilation strategy to prevent volutrauma Bronchodilators Sedation holiday performed and patient was trialed on pressure support his RSBI was very high. Patient was placed on pressure support ventilation of 12/5 with adequate tidal volumes. Pressure support ventilation was continued for day while patient was off sedation. As the day progresses mental status improved. Continue to try again tomorrow (2) Septic shock: Code(s): A41.9 - Sepsis, unspecified organism; R65.21 - Severe sepsis with septic shock Status: Acute Assessment and Plan: Secondary to pneumonia Blood and sputum culture sent and pending Continue vancomycin and cefepime until cultures are back Patient adequately volume resuscitated will hold further fluids Levophed weaned Lactic acid has normalized (3) COPD (chronic obstructive pulmonary disease): Code(s): J44.9 - Chronic obstructive pulmonary disease, unspecified Status: Acute Assessment and Plan: Bronchodilators (4) Person under investigation for COVID-19: Code(s): Z20.828 - Contact with and (suspected) exposure to other viral communicable diseases Status: Acute Assessment and Plan: COVID-19 suspected. SARS-CoV-2 PCR sent and was negative Isolation discontinued (5) DVT prophylaxis: Code(s): Z29.9 - Encounter for prophylactic measures, unspecified Status: Acute Assessment and Plan: Lovenox (6) Encephalopathy: Code(s): G93.40 - Encephalopathy, unspecified Status: Acute Assessment and Plan: Patient is nonverbal at baseline and has history of hydrocephalus Head CT done in ER which was consistent with hydrocephalus IMPRESSION: 1. No acute intracranial process. 2. Encephalomalacia in the anterior bilateral frontal lobes and temporal lobes which could represent sequela of old infarcts or trauma. Correlate with clinical history. 3. Prominent symmetric enlargement of the ventricles which is out of proportion to the sulci which could be related to either central predominant atrophy or normal pressure hydrocephalus (NPH: clinical triad ataxia/gait disturbance, dementia, urinary incontinence) Sedation holiday today and patient is slowly waking continue as tolerated (7) Dysphagia: Code(s): R13.10 - Dysphagia, unspecified Status: Acute Assessment and Plan: Patient has a PEG tube. Continue tube feedings through PEG tube (8) Edema: Code(s): R60.9 - Edema, unspecified Status: Acute Assessment and Plan: Swelling of right foot. Dopplers were done which were negative for DVT Additional Plan DVT prophylaxis -Lovenox Stress ulcer prophylaxis -continue PPI Nutrition -start tube feeding Code Status - Full Code per patient's sister Patient has been in and out of shelter facility [facility] in hospitals recently,. He was recently at [facility] and [facility]. Patient now is readmitted within couple of days of his transfer to [facility] Total Critical Care Time - 30 minutes Due to a high probability of clinically significant, life threatening deterioration, the patient required my highest level of preparedness to intervene
[2020-05-11 15:52] LABS: Vancomycin Trough 5.6 ug/mL (10.0-20.0)
--- NOTE | 2020-05-11 20:09 | PM.IMPN ---
Progress Note: A&P Assessment and Plan (1) Acute respiratory failure with hypoxemia: Code(s): J96.01 - Acute respiratory failure with hypoxia Status: Acute Assessment and Plan: Patient presents acute onset respiratory failure on 05/09. Chest x-ray patchy infiltrates. CTA chest showing innumerable diffuse small centrilobular nodules and small regions of patchy consolidation consistent with widespread pneumonia including atypical fungal or mycobacterial. Patient intubated in the ED. He remains stable on MV. Appreciate plastics tooling engineer input. (2) Pneumonia: Code(s): J18.9 - Pneumonia, unspecified organism Status: Acute Assessment and Plan: CTA chest 05/09 showing no PE but does show innumerable diffuse small centrilobular nodules and small regions of patchy consolidation consistent with widespread pneumonia including atypical fungal or mycobacterial. BCx NGTD. He has been started on Cefepime, Azithro and Vanco. WBC normal now. No fevers. Check Echo. (3) Severe sepsis: Code(s): A41.9 - Sepsis, unspecified organism; R65.20 - Severe sepsis without septic shock Status: Acute Assessment and Plan: Present on admission with leukocytosis, tachycardia and lactic acidosis. Abx started for PNA. UA not consistent with UTI. BCx NGTD. Did develop septic shock on the evening of admission requiring central line placement and started on Levophed. Able to be titrated off this morning. Follow closely. (4) Encephalopathy: Code(s): G93.40 - Encephalopathy, unspecified Status: Acute Assessment and Plan: Patient with acute on chronic encephalopathy. Acute process related to above. Chronically has hydrocephalus with evidence of encephalomalacia. (5) COPD (chronic obstructive pulmonary disease): Code(s): J44.9 - Chronic obstructive pulmonary disease, unspecified Status: Acute Assessment and Plan: Patient has hx of COPD but no significant smoking hx per family. Follow (6) Anemia: Code(s): D64.9 - Anemia, unspecified Status: Acute Assessment and Plan: Hgb 11.8 on admission. Hgb has dropped to 7 range and remains stable. No evidence of acute blood loss. Check iron studies. Will follow. (7) Dysphagia: Code(s): R13.10 - Dysphagia, unspecified Status: Acute Assessment and Plan: with G-tube. Nurse at facility feel patient is still aspirating secretions and may be having reflux causing the chronic nausea. Explained to family that this may be a chronic issue causing these episodes of respiratory failure. TF resumed and tolerating. May need Reglan if further concerns. (8) Hypertension: Code(s): I10 - Essential (primary) hypertension Status: Inactive Assessment and Plan: BP reviewed on 05/11 BP well controlled. Home Diltiazem has on hold related to above. (9) Person under investigation for COVID-19: Code(s): Z20.828 - Contact with and (suspected) exposure to other viral communicable diseases Status: Acute Assessment and Plan: Tested for COVID here on 05/09 and was negative. (10) DVT prophylaxis: Code(s): Z29.9 - Encounter for prophylactic measures, unspecified Status: Acute Assessment and Plan: Lovenox Subjective Date/time seen: 05/11/20 20:09 Interval history: Date of service 05/11/20 60yo male with HTN, hydrocephalus and dementia here for acute respiratory failure. Patietn intubated but off sedation since yesterday. Tolerating tube feeding. Increased secretions. Review of Systems Review of Systems: ROS unobtainable: Yes unobtainable due to endotracheal tube Exam Narrative: Exam Narrative: AF 98.8 114/70 65 17 99% MV Gen - intuabted HEENT - NGT and ETT secured. Neck - Rt IJ TLC in place Chest - lungs clear anteriorly CV - tachycardic, regular. S1-S2. Tele showing no alarms Abd - Soft, +B
[2020-05-12] VITALS (27 sets, daily range): BP systolic 98–147; BP diastolic 58–92; PULSE 86–110; RESP 16–28; TEMP 36.1–37.1; O2SAT 94–100
--- NOTE | 2020-05-12 | ECHO_ITS ---
Patient Info Name: King Sullivan Age: 60 years : 1960 Gender: Male Ht: 66 in Wt: 131 lbs BSA: 1.66 m2 HR: 102 bpm BP: 106 / 70 mmHg Heart Rhythm: Sinus Rhythm Technical Quality: Good Exam Date: 05/12/2020 9:15 AM Exam Location: [facility] Patient Status: Inpatient Admit Date: 05/09/2020 Staff Ordering Physician: Clint Leigh MD Booker: Kalee Self RDCS Attending Provider: Clint Leigh MD Exam Type: CA echo doppler color flow Study Info Complete two-dimensional, color flow and Doppler transthoracic echocardiogram is performed. Summary 1. Complete two-dimensional, color flow and Doppler transthoracic echocardiogram is performed. 2. Normal left and right ventricular systolic function and size. 3. Trivial mitral and tricuspid valve regurgitation. Left Ventricle Left ventricular chamber dimension is normal. Left ventricular systolic function is normal, estimated at 60-65%. The left ventricular diastolic function is normal. Right Ventricle Right ventricular chamber dimension is normal. Left Atria Left atrial chamber dimension is normal. Right Atria Right atrial chamber dimension is normal. Aortic Valve The aortic valve is normal. Pulmonic Valve The pulmonic valve is not well visualized. Mitral Valve The mitral valve has normal leaflets. There is trace mitral valve regurgitation. Tricuspid Valve The tricuspid valve leaflets are normal. There is trace tricuspid valve regurgitation. Pericardium/Pleural The pericardium appears normal. Aorta The aortic root size at the sinus of Valsalva is normal. Left Ventricular Outflow Tract Name Value Normal LVOT 2D LVOT Diameter 2.1 cm LVOT Doppler LVOT Peak Gradient 2 mmHg LVOT Mean Gradient 1 mmHg LVOT VTI 19 cm LVOT VTI/AV VTI Ratio 0.9 LVOT Stroke Volume 64 ml LVOT CO 6.5 l/min LVOT CI 3.9 l/min/m2 Pulmonic Valve Name Value Normal PV Doppler PV Peak Gradient 4 mmHg Mitral Valve Name Value Normal MV Doppler MV Decel [place] 969 cm/s2 MV PHT 29 ms MV Area (PHT) 7.6 cm2 4.0-5.0 MV Diastolic Function MV E Peak Velocity 96 cm/s MV A Peak Velocity 102 cm/s
[2020-05-12 05:23] LABS: Alveolar/Arterial O2 Gradient 115.4 mmHg; Base Excess ABG 0.8 mEq/l (+/-2.0); Carboxyhemoglobin 0.3 % THb (0-2.0); Fractional Inspired Oxygen 40 %; HCO3 ABG 24.6 mEq/l (22.0-26.0); Methemoglobin ABG 0.5 %THb (0-1.5); Oxygen Content ABG 10.8 %vol (16.0-22.0); Oxygen Saturation ABG 98.7 % (95.0-100.0); Oxyhemoglobin 97.3 % THb (90.0-100.0); PCO2 ABG 35.5 mmHg (35.0-45.0); PO2 FiO2 Ratio Arterial Blood 3.22 %; Reduced Hemoglobin 1.9 %THb (0-5.0); pH ABG 7.458 (7.350-7.450)
[2020-05-12 05:24] LABS: Device VENTILATOR; Modified Allen's Test Unable to perform; Site Drawn RIGHT RADIAL
[2020-05-12 05:25] LABS: Arterial Blood Gas PEEP 5 cmH2O; Arterial Blood Gas Tidal Volume 400 ml; Arterial Blood Gas Vent Mode ASSIST CONTROL; Arterial Blood Gas Ventilator rate 16 /MIN; Total Hemoglobin 7.7 g/dL (12.0-18.0)
[2020-05-12] MEDS: LORazepam INJ (*CRX) 2 MG/ML VIAL 1 MG IV PUSH ×2 (05:55→16:29)
[2020-05-12] MEDS: CENTRAL LINE FLUSH 10 ML IV PUSH ×4 (05:56→20:32)
[2020-05-12 06:22] LABS: Hematocrit 21.2 % (42.0-52.0); Mean Corpuscular HGB Conc 30.2 g/dl (32-36); Mean Corpuscular Hemoglobin 23.7 pg (26-34); Mean Corpuscular Volume 78.5 fl (80-100); Mean Platelet Volume 10.5 fl (7.4-10.4); Platelet Count Result 418 k/mm3 (150-375); Red Cell Distribution Width 18.4 % (11.5-14.5); White Blood Count 6.1 K/mm3 (4.5-10.0)
[2020-05-12 06:40] LABS: Alanine Aminotransferase 26 U/L (4-50); Albumin Level 2.5 g/dL (3.5-5.1); Alkaline Phosphatase 72 U/L (38-126); Anion Gap 4 mmol/L (8-16); Aspartate Amino Transferase 37 U/L (17-59); Bilirubin,Total 0.3 mg/dL (0.2-1.3); Blood Urea Nitrogen 3 mg/dL (9-20); Calcium 8.5 mg/dL (8.4-10.2); Carbon Dioxide 29 mmol/L (22-30); Chloride 106 mmol/L (98-107); Estimated CRCL calculation 98 ml/min; Estimated Glomerular Filt Rate > 60; Glucose 82 mg/dL (75-110); Magnesium 1.7 mg/dL (1.6-2.3); Potassium 3.5 mmol/L (3.4-5.0); Sodium 139 mmol/L (137-145)
[2020-05-12 06:55] LABS: Hemoglobin 6.4 g/dL (14.0-18.0)
[2020-05-12 07:28] LABS: Iron 15 ug/dL (49-181)
[2020-05-12 07:37] LABS: Percent Iron Saturation 8 % (20-50)
[2020-05-12] MEDS: PANTOPRAZOLE SODIUM IV 40 MG VIAL IV PUSH (07:40)
[2020-05-12] MEDS: busPIRone HCL 10 MG TABLET FEED TUBE ×3 (07:40→16:28)
[2020-05-12 07:47] LABS: Folic Acid > 20.0 ng/mL (2.76->20)
[2020-05-12] MEDS: ENOXAPARIN 40 MG/0.4 ML SYRINGE SUB-Q (07:53)
[2020-05-12] MEDS: POTASSIUM CHLORIDE 20 MEQ PACKET (FOR LIQUID) 40 MEQ FEED TUBE (07:56)
[2020-05-12 08:45] LABS: Free T4 Free Thyroxine Reflex 1.49 ng/dL (0.78-2.19)
--- NOTE | 2020-05-12 09:11 | WPDINTPN ---
Progress Note: A&P Assessment and Plan (1) Acute respiratory failure with hypoxemia: Code(s): J96.01 - Acute respiratory failure with hypoxia Status: Acute Assessment and Plan: Acute Respiratory failure secondary to pneumonia and septic shock ABG, vent settings and CT chest reviewed CT showed IMPRESSION: 1. No pulmonary embolism but limited study due to motion and streak artifact which decreases sensitivity for pulmonary embolism in the segmental and more significantly the subsegmental pulmonary arteries. 2. Innumerable diffuse small centrilobular nodules and small regions of patchy consolidation consistent with widespread pneumonia including atypical fungal or mycobacterial. Low tidal volume ventilation strategy to prevent volutrauma Bronchodilators 05/11 Sedation holiday performed and patient was trialed on pressure support his RSBI was very high. Patient was placed on pressure support ventilation of 05/05 with adequate tidal volumes. Pressure support ventilation was continued for day while patient was off sedation. 05/12 withdraw ETT by 3 cm, will try pressure support ventilation again today. Patient placed on trial of 05/05 will wean down pressure support as tolerated (2) Septic shock: Code(s): A41.9 - Sepsis, unspecified organism; R65.21 - Severe sepsis with septic shock Status: Acute Assessment and Plan: Secondary to pneumonia Blood and sputum culture sent and pending Continue vancomycin and cefepime until cultures are back Patient adequately volume resuscitated will hold further fluids Levophed weaned Lactic acid has normalized (3) COPD (chronic obstructive pulmonary disease): Code(s): J44.9 - Chronic obstructive pulmonary disease, unspecified Status: Acute Assessment and Plan: Bronchodilators (4) Person under investigation for COVID-19: Code(s): Z20.828 - Contact with and (suspected) exposure to other viral communicable diseases Status: Acute Assessment and Plan: COVID-19 suspected. SARS-CoV-2 PCR sent and was negative Isolation discontinued (5) DVT prophylaxis: Code(s): Z29.9 - Encounter for prophylactic measures, unspecified Status: Acute Assessment and Plan: Lovenox (6) Encephalopathy: Code(s): G93.40 - Encephalopathy, unspecified Status: Acute Assessment and Plan: Patient is nonverbal at baseline and has history of hydrocephalus Head CT done in ER which was consistent with hydrocephalus IMPRESSION: 1. No acute intracranial process. 2. Encephalomalacia in the anterior bilateral frontal lobes and temporal lobes which could represent sequela of old infarcts or trauma. Correlate with clinical history. 3. Prominent symmetric enlargement of the ventricles which is out of proportion to the sulci which could be related to either central predominant atrophy or normal pressure hydrocephalus (NPH: clinical triad ataxia/gait disturbance, dementia, urinary incontinence) Sedation holiday today and patient is slowly waking continue as tolerated (7) Dysphagia: Code(s): R13.10 - Dysphagia, unspecified Status: Acute Assessment and Plan: Patient has a PEG tube. Continue tube feedings through PEG tube (8) Edema: Code(s): R60.9 - Edema, unspecified Status: Acute Assessment and Plan: Swelling of right foot. Dopplers were done which were negative for DVT (9) Anemia: Code(s): D64.9 - Anemia, unspecified Status: Acute Assessment and Plan: Hemoglobin 6.4. Patient does have history of chronic anemia. No evidence of bleeding Will transfuse 1 unit of packed red cells and monitor On PPI stress ulcer prophylaxis (10) Pneumonia: Code(s): J18.9 - Pneumonia, unspecified organism Status: Acute Assessment and Plan: See above Additional Plan DVT prophylaxis -Lovenox Stress ulcer prophylaxis -continue PPI Nutrition -continue tube feeding Code Statu
[2020-05-12 09:33] LABS: Total Triiodothyronine (T3) 1.42 NG/ML (0.97-1.69)
[2020-05-12] MEDS: SODIUM CHLORIDE 0.9% IV 250 ML 30 ML IV CONT (14:28)
[2020-05-12] MEDS: LACTATED RINGERS 1,000 ML 30 ML IV CONT (16:20)
--- NOTE | 2020-05-12 18:11 | PM.IMPN ---
Progress Note: A&P Assessment and Plan (1) Acute respiratory failure with hypoxemia: Code(s): J96.01 - Acute respiratory failure with hypoxia Status: Acute Assessment and Plan: Patient presents acute onset respiratory failure on 05/09. CTA chest on admission showing innumerable diffuse small centrilobular nodules and small regions of patchy consolidation consistent with widespread pneumonia including atypical fungal or mycobacterial; no PE. Patient intubated in the ED. He remains stable on mechanical ventilation. ABG 7.45/35/129. CXR today showing diffuse lung disease R>L. Continue broad spectrum abx, neb treatments. Appreciate director of workforce development input. (2) Pneumonia: Code(s): J18.9 - Pneumonia, unspecified organism Status: Acute Assessment and Plan: CTA chest 05/09 showing no PE but does show innumerable diffuse small centrilobular nodules and small regions of patchy consolidation consistent with widespread pneumonia including atypical fungal or mycobacterial. BCx NGTD. Sputum Cx negative. Echo normal. Continue Cefepime, Azithro and Vanco. WBC normal now. No fevers. (3) Septic shock: Code(s): A41.9 - Sepsis, unspecified organism; R65.21 - Severe sepsis with septic shock Status: Acute Assessment and Plan: Present on admission with leukocytosis, tachycardia and lactic acidosis. Abx started for PNA. UA not consistent with UTI. BCx NGTD. Did develop septic shock on the evening of admission requiring central line placement and started on Levophed. Able to be titrated off 05/11. Follow closely. (4) Encephalopathy: Code(s): G93.40 - Encephalopathy, unspecified Status: Acute Assessment and Plan: Patient with acute on chronic encephalopathy. Acute process related to above. Chronical encephalopathy associated with hydrocephalus with evidence of encephalomalacia. (5) COPD (chronic obstructive pulmonary disease): Code(s): J44.9 - Chronic obstructive pulmonary disease, unspecified Status: Acute Assessment and Plan: Patient has hx of COPD but no significant smoking hx per family. Follow (6) Anemia: Code(s): D64.9 - Anemia, unspecified Status: Acute Assessment and Plan: Hgb 11.8 on admission. Hgb dropped to 7 range but now down to 6.4 this morning (7.7 by ABG). Iron studies related to anemia of chronic disease with normal ferritin and very low TIBC. No evidence of rectal bleeding. PRBC x 1U ordered. Follow for stability. Continue Protonix. (7) Dysphagia: Code(s): R13.10 - Dysphagia, unspecified Status: Acute Assessment and Plan: with G-tube. Nurse at facility felt patient is still aspirating secretions and may be having reflux causing the chronic nausea. Explained to family that this may be a chronic issue causing these episodes of respiratory failure. TF resumed and tolerating. May need Reglan if further concerns. (8) Hypertension: Code(s): I10 - Essential (primary) hypertension Status: Inactive Assessment and Plan: BP reviewed on 05/12 BP well controlled. Home Diltiazem remains on hold related to above. (9) Person under investigation for COVID-19: Code(s): Z20.828 - Contact with and (suspected) exposure to other viral communicable diseases Status: Acute Assessment and Plan: Tested for COVID here on 05/09 and was negative. (10) DVT prophylaxis: Code(s): Z29.9 - Encounter for prophylactic measures, unspecified Status: Acute Assessment and Plan: Lovenox Subjective Date/time seen: 05/12/20 18:11 Interval history: Date of service 05/12 60yo male with HTN, hydrocephalus and dementia here for acute respiratory failure. Secretions are minimal and thin. Remains intubated. NGT out. Toelrating TF. Liquid BM today. Not on sedation. Patient not following commands Review of Systems [employer]i
[2020-05-12 18:55] LABS: Hematocrit 27.9 % (42.0-52.0); Hemoglobin 8.6 g/dL (14.0-18.0)
[2020-05-13] VITALS (27 sets, daily range): BP systolic 112–156; BP diastolic 63–97; PULSE 77–402; RESP 16–35; TEMP 37.2–37.6; O2SAT 94–99
[2020-05-13] MEDS: LORazepam INJ (*CRX) 2 MG/ML VIAL 1 MG IV PUSH (01:59)
[2020-05-13 04:36] LABS: Hematocrit 26.2 % (42.0-52.0); Hemoglobin 8.4 g/dL (14.0-18.0); Mean Corpuscular HGB Conc 32.1 g/dl (32-36); Mean Corpuscular Hemoglobin 24.7 pg (26-34); Mean Corpuscular Volume 77.1 fl (80-100); Mean Platelet Volume 9.8 fl (7.4-10.4); Platelet Count Result 410 k/mm3 (150-375); Red Cell Distribution Width 17.2 % (11.5-14.5); White Blood Count 6.3 K/mm3 (4.5-10.0)
[2020-05-13 04:43] LABS: Base Excess ABG 3.3 mEq/l (+/-2.0); Carboxyhemoglobin 0.3 % THb (0-2.0); Device VENTILATOR; Fractional Inspired Oxygen 40 %; HCO3 ABG 26.9 mEq/l (22.0-26.0); Methemoglobin ABG 0.3 %THb (0-1.5); Modified Allen's Test Unable to perform; Oxygen Content ABG 14.6 %vol (16.0-22.0); Oxygen Saturation ABG 99.2 % (95.0-100.0); Oxyhemoglobin 97.8 % THb (90.0-100.0); PCO2 ABG 37.1 mmHg (35.0-45.0); PO2 ABG 159.5 mmHg (80.0-100.0); PO2 FiO2 Ratio Arterial Blood 3.99 %; Reduced Hemoglobin 1.6 %THb (0-5.0); Site Drawn RIGHT RADIAL; Total Hemoglobin 10.4 g/dL (12.0-18.0); pH ABG 7.478 (7.350-7.450)
[2020-05-13 04:44] LABS: Arterial Blood Gas PEEP 5 cmH2O; Arterial Blood Gas Tidal Volume 400 ml; Arterial Blood Gas Vent Mode ASSIST CONTROL; Arterial Blood Gas Ventilator rate 16 /MIN
[2020-05-13 04:49] LABS: Alanine Aminotransferase 25 U/L (4-50); Albumin Level 2.8 g/dL (3.5-5.1); Alkaline Phosphatase 76 U/L (38-126); Anion Gap 6 mmol/L (8-16); Aspartate Amino Transferase 29 U/L (17-59); Bilirubin,Total 0.4 mg/dL (0.2-1.3); Blood Urea Nitrogen 3 mg/dL (9-20); Calcium 8.4 mg/dL (8.4-10.2); Carbon Dioxide 30 mmol/L (22-30); Chloride 103 mmol/L (98-107); Estimated CRCL calculation 120 ml/min; Estimated Glomerular Filt Rate > 60; Glucose 88 mg/dL (75-110); Magnesium 1.6 mg/dL (1.6-2.3); Potassium 3.6 mmol/L (3.4-5.0); Sodium 139 mmol/L (137-145)
[2020-05-13 05:46] LABS: Vancomycin Trough 10.8 ug/mL (10.0-20.0)
[2020-05-13] MEDS: CENTRAL LINE FLUSH 10 ML IV PUSH ×3 (06:11→20:39)
[2020-05-13] MEDS: PANTOPRAZOLE SODIUM IV 40 MG VIAL IV PUSH (08:15)
[2020-05-13] MEDS: ENOXAPARIN 40 MG/0.4 ML SYRINGE SUB-Q (08:15)
[2020-05-13] MEDS: busPIRone HCL 10 MG TABLET FEED TUBE ×3 (08:15→17:50)
--- NOTE | 2020-05-13 08:38 | PM.IMPN ---
Progress Note: A&P Assessment and Plan (1) Acute respiratory failure with hypoxemia: Code(s): J96.01 - Acute respiratory failure with hypoxia Status: Acute Assessment and Plan: Patient presents with acute onset respiratory failure on 05/09. CTA chest on admission showing innumerable diffuse small centrilobular nodules and small regions of patchy consolidation consistent with widespread pneumonia including atypical fungal or mycobacterial; no PE. Patient intubated in the ED. He remains stable on mechanical ventilation. ABG 7.47/37/160 on 40% FiO2, PEEP 5 AC rate 16 and TV 400 today. CXR reviewed today showing decrease in the bibasilar airspace disease. Continue broad spectrum abx, neb treatments. Appreciate power washer input. Discussed with power washer. (2) Pneumonia: Code(s): J18.9 - Pneumonia, unspecified organism Status: Acute Assessment and Plan: CTA chest 05/09 showing no PE but does show innumerable diffuse small centrilobular nodules and small regions of patchy consolidation consistent with widespread pneumonia including atypical fungal or mycobacterial. BCx NGTD. Sputum Cx negative. Echo normal. WBC remains normal. No fevers. Continue Cefepime, Azithro and Vanco Day 4. (3) Septic shock: Code(s): A41.9 - Sepsis, unspecified organism; R65.21 - Severe sepsis with septic shock Status: Acute Assessment and Plan: Present on admission with leukocytosis, tachycardia and lactic acidosis. Abx started for PNA. UA not consistent with UTI. BCx NGTD. Did develop septic shock on the evening of admission requiring central line placement and started on Levophed. Able to be titrated off 05/11. Follow closely. (4) Encephalopathy: Code(s): G93.40 - Encephalopathy, unspecified Status: Acute Assessment and Plan: Patient with acute on chronic encephalopathy. Acute process related to above. 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 (5) COPD (chronic obstructive pulmonary disease): Code(s): J44.9 - Chronic obstructive pulmonary disease, unspecified Status: Acute Assessment and Plan: Patient has hx of COPD but no significant smoking hx per family. No wheezing. Follow (6) Anemia: Code(s): D64.9 - Anemia, unspecified Status: Acute Assessment and Plan: Hgb 11.8 on admission. Hgb dropped to 7 range but now down to 6.4 yesterday morning (7.7 by ABG). Iron studies related to anemia of chronic disease with normal ferritin and very low TIBC. No evidence of rectal bleeding. PRBC x 1U ordered. Repeat Hgb 8.6 and 8.4 this morning. Follow for stability. Continue Protonix. (7) Dysphagia: Code(s): R13.10 - Dysphagia, unspecified Status: Acute Assessment and Plan: with G-tube. Nurse at facility felt patient is still aspirating secretions and may be having reflux causing the chronic nausea and aspiration. Explained to family that this may be a chronic issue causing these episodes of respiratory failure. TF resumed and patient tolerating. May need Reglan if further concerns. Consider scopolamine patch. (8) Hypertension: Code(s): I10 - Essential (primary) hypertension Status: Inactive Assessment and Plan: BP reviewed on 05/13 BP well controlled. Home Diltiazem remains on hold related to above. Could resume if/when okay with others. (9) Person under investigation for COVID-19: Code(s): Z20.828 - Contact with and (suspected) exposure to other viral communicable diseases Status: Acute Assessment and Plan: Tested for COVID here on 05/09 and was negative. (10) DVT prophylaxis: Code(s): Z29.9 - Encounter for prophylactic measures, unspecified Status: Acute Assessment and Plan: Lovenox Subjective Date/time seen: 05/13/20 08:38 Interval history: Date of service 05/13
--- NOTE | 2020-05-13 09:48 | WPDINTPN ---
Progress Note: A&P Assessment and Plan (1) Acute respiratory failure with hypoxemia: Code(s): J96.01 - Acute respiratory failure with hypoxia Status: Acute Assessment and Plan: Acute Respiratory failure secondary to pneumonia and septic shock ABG, vent settings and CT chest reviewed CT showed IMPRESSION: 1. No pulmonary embolism but limited study due to motion and streak artifact which decreases sensitivity for pulmonary embolism in the segmental and more significantly the subsegmental pulmonary arteries. 2. Innumerable diffuse small centrilobular nodules and small regions of patchy consolidation consistent with widespread pneumonia including atypical fungal or mycobacterial. Low tidal volume ventilation strategy to prevent volutrauma Bronchodilators 05/11 Sedation holiday performed and patient was trialed on pressure support his RSBI was very high. Patient was placed on pressure support ventilation of 05/05 with adequate tidal volumes. Pressure support ventilation was continued for day while patient was off sedation. 05/12 withdraw ETT by 3 cm, will try pressure support ventilation again today. Patient placed on trial of 05/05 will wean down pressure support as tolerated 05/13 will try pressure support ventilation again today (2) Septic shock: Code(s): A41.9 - Sepsis, unspecified organism; R65.21 - Severe sepsis with septic shock Status: Acute Assessment and Plan: Secondary to pneumonia Blood and sputum culture sent and negative till now Continue cefepime but will discontinue vancomycin Patient adequately volume resuscitated will hold further fluids Levophed weaned off Lactic acid has normalized (3) COPD (chronic obstructive pulmonary disease): Code(s): J44.9 - Chronic obstructive pulmonary disease, unspecified Status: Acute Assessment and Plan: Bronchodilators (4) Person under investigation for COVID-19: Code(s): Z20.828 - Contact with and (suspected) exposure to other viral communicable diseases Status: Acute Assessment and Plan: COVID-19 suspected. SARS-CoV-2 PCR sent and was negative Isolation discontinued (5) DVT prophylaxis: Code(s): Z29.9 - Encounter for prophylactic measures, unspecified Status: Acute Assessment and Plan: Lovenox (6) Encephalopathy: Code(s): G93.40 - Encephalopathy, unspecified Status: Acute Assessment and Plan: Patient is nonverbal at baseline and has history of hydrocephalus Head CT done in ER which was consistent with hydrocephalus IMPRESSION: 1. No acute intracranial process. 2. Encephalomalacia in the anterior bilateral frontal lobes and temporal lobes which could represent sequela of old infarcts or trauma. Correlate with clinical history. 3. Prominent symmetric enlargement of the ventricles which is out of proportion to the sulci which could be related to either central predominant atrophy or normal pressure hydrocephalus (NPH: clinical triad ataxia/gait disturbance, dementia, urinary incontinence) I have discontinued Ativan. Continue sedation home Baseline unknown (7) Dysphagia: Code(s): R13.10 - Dysphagia, unspecified Status: Acute Assessment and Plan: Patient has a PEG tube. Continue tube feedings through PEG tube (8) Edema: Code(s): R60.9 - Edema, unspecified Status: Acute Assessment and Plan: Swelling of right foot. Dopplers were done which were negative for DVT (9) Anemia: Code(s): D64.9 - Anemia, unspecified Status: Acute Assessment and Plan: Hemoglobin 6.4. Patient does have history of chronic anemia. No evidence of bleeding / transfused 1 unit of packed red cells Hemoglobin stable continue to monitor On PPI stress ulcer prophylaxis (10) Pneumonia: Code(s): J18.9 - Pneumonia, unspecified organism Status: Acute Assessment and Plan: See above Additional Plan DVT prophylaxis -Rody
[2020-05-13] MEDS: POTASSIUM CHLORIDE 20 MEQ PACKET (FOR LIQUID) 40 MEQ FEED TUBE (10:00)
[2020-05-13] MEDS: FOLIC ACID 1 MG TABLET FEED TUBE (10:00)
--- NOTE | 2020-05-13 18:49 | PC.NURSE ---
Spoke to patients family who is requesting a GI consult due to patients recurrent aspiration
[2020-05-14] VITALS (25 sets, daily range): BP systolic 122–163; BP diastolic 75–109; PULSE 92–126; RESP 12–20; TEMP 36.9–37.4; O2SAT 96–99
[2020-05-14] MEDS: LACTATED RINGERS 1,000 ML 30 ML IV CONT ×2 (01:43→20:56)
[2020-05-14 03:57] LABS: Hematocrit 27.1 % (42.0-52.0); Hemoglobin 8.5 g/dL (14.0-18.0); Mean Corpuscular HGB Conc 31.4 g/dl (32-36); Mean Corpuscular Hemoglobin 24.7 pg (26-34); Mean Corpuscular Volume 78.8 fl (80-100); Mean Platelet Volume 9.8 fl (7.4-10.4); Platelet Count Result 405 k/mm3 (150-375); Red Blood Count 3.44 M/mm3 (4.6-6.20); Red Cell Distribution Width 17.2 % (11.5-14.5); White Blood Count 5.7 K/mm3 (4.5-10.0)
[2020-05-14 04:01] LABS: Alanine Aminotransferase 21 U/L (4-50); Albumin Level 2.9 g/dL (3.5-5.1); Alkaline Phosphatase 73 U/L (38-126); Anion Gap 3 mmol/L (8-16); Aspartate Amino Transferase 24 U/L (17-59); Bilirubin,Total 0.3 mg/dL (0.2-1.3); Blood Urea Nitrogen 2 mg/dL (9-20); Calcium 8.8 mg/dL (8.4-10.2); Carbon Dioxide 32 mmol/L (22-30); Chloride 102 mmol/L (98-107); Estimated CRCL calculation 117 ml/min; Estimated Glomerular Filt Rate > 60; Glucose 99 mg/dL (75-110); Magnesium 1.6 mg/dL (1.6-2.3); Potassium 3.6 mmol/L (3.4-5.0); Sodium 137 mmol/L (137-145)
[2020-05-14 05:22] LABS: Alveolar/Arterial O2 Gradient 65.9 mmHg; Base Excess ABG 3.1 mEq/l (+/-2.0); Carboxyhemoglobin 0.3 % THb (0-2.0); Fractional Inspired Oxygen 30 %; HCO3 ABG 26.9 mEq/l (22.0-26.0); Methemoglobin ABG 0.3 %THb (0-1.5); Oxygen Content ABG 13.6 %vol (16.0-22.0); Oxyhemoglobin 96.6 % THb (90.0-100.0); PCO2 ABG 38.4 mmHg (35.0-45.0); PO2 ABG 102.9 mmHg (80.0-100.0); PO2 FiO2 Ratio Arterial Blood 3.43 %; Reduced Hemoglobin 2.8 %THb (0-5.0); Total Hemoglobin 9.9 g/dL (12.0-18.0); pH ABG 7.464 (7.350-7.450)
[2020-05-14 05:24] LABS: Device VENTILATOR; Modified Allen's Test Pass; Site Drawn RIGHT RADIAL
[2020-05-14 05:25] LABS: Arterial Blood Gas PEEP 5 cmH2O; Arterial Blood Gas Tidal Volume 400 ml; Arterial Blood Gas Vent Mode CMV; Arterial Blood Gas Ventilator rate 16 /MIN
[2020-05-14] MEDS: CENTRAL LINE FLUSH 10 ML IV PUSH ×3 (06:17→20:51)
[2020-05-14 08:09] LABS: Ammonia < 9 umol/L (9-30)
[2020-05-14] MEDS: busPIRone HCL 10 MG TABLET FEED TUBE ×3 (09:24→18:06)
[2020-05-14] MEDS: FOLIC ACID 1 MG TABLET FEED TUBE (09:24)
[2020-05-14] MEDS: ENOXAPARIN 40 MG/0.4 ML SYRINGE SUB-Q (09:24)
[2020-05-14] MEDS: PANTOPRAZOLE SODIUM IV 40 MG VIAL IV PUSH (09:25)
--- NOTE | 2020-05-14 12:17 | PCDIET ---
ICU Rounding Note: Patient tolerating Vital 1.2 at 50mL/hr goal rate with 30mL water flush every 4 hours. Last recorded weight is 52.5kg which is decreased from last review (-I/O) but increased from admission. Bowel Motility: FMS in place for liquid stool. Labs Reviewed: Hgb (8.5), Hct (27.1), BUN (2), Cr (0.4), Alb (2.9) Meds Noted: Azithromycin, Cefepime, Fentanyl, Folic Acid, Protonix, LR at 30mL/hr Additional Notes: Mepilex to old skin tear on coccyx. Following daily in ICU rounds. Assessing/reassessing every Thursday/Thursday.
--- NOTE | 2020-05-14 12:26 | PM.IMPN ---
Progress Note: A&P Assessment and Plan (1) Acute respiratory failure with hypoxemia: Code(s): J96.01 - Acute respiratory failure with hypoxia Status: Acute Assessment and Plan: Patient presents with acute onset respiratory failure on 05/09. CTA chest on admission showing innumerable diffuse small centrilobular nodules and small regions of patchy consolidation consistent with widespread pneumonia including atypical fungal or mycobacterial; no PE. Patient intubated in the ED. He remains stable on mechanical ventilation. ABG 7.46/38/103 on 30% FiO2, PEEP 5 CMV rate 16 and TV 400 today. CXR reviewed today showing no change. Continue broad spectrum abx, neb treatments. Appreciate [facility]na hospice input. Discussed with family (2) Pneumonia: Code(s): J18.9 - Pneumonia, unspecified organism Status: Acute Assessment and Plan: CTA chest 05/09 showing no PE but does show innumerable diffuse small centrilobular nodules and small regions of patchy consolidation consistent with widespread pneumonia including atypical fungal or mycobacterial. BCx NGTD. Sputum Cx negative. Echo normal. WBC remains normal. No fevers. Continue Cefepime, Azithro and Vanco Day 5. (3) Septic shock: Code(s): A41.9 - Sepsis, unspecified organism; R65.21 - Severe sepsis with septic shock Status: Acute Assessment and Plan: Present on admission with leukocytosis, tachycardia and lactic acidosis. Abx started for PNA. UA not consistent with UTI. BCx NGTD. Did develop septic shock on the evening of admission requiring central line placement and started on Levophed. Able to be titrated off 05/11. Follow closely. (4) Encephalopathy: Code(s): G93.40 - Encephalopathy, unspecified Status: Acute Assessment and Plan: Patient with acute on chronic encephalopathy. Acute process related to above. 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 (5) COPD (chronic obstructive pulmonary disease): Code(s): J44.9 - Chronic obstructive pulmonary disease, unspecified Status: Acute Assessment and Plan: Patient has hx of COPD but no significant smoking hx per family. No wheezing. Follow (6) Anemia: Code(s): D64.9 - Anemia, unspecified Status: Acute Assessment and Plan: Hgb 11.8 on admission. Hgb dropped to 7 range but now down to 6.4 12/ morning (7.7 by ABG). Iron studies related to anemia of chronic disease with normal ferritin and very low TIBC. No evidence of rectal bleeding. PRBC x 1U ordered. Repeat Hgb 8.5 this morning. Follow for stability. Continue Protonix. (7) Dysphagia: Code(s): R13.10 - Dysphagia, unspecified Status: Acute Assessment and Plan: with G-tube. Nurse at facility felt patient is still aspirating secretions and may be having reflux causing the chronic nausea and aspiration. Explained to family that this may be a chronic issue causing these episodes of respiratory failure. TF resumed and patient tolerating. May need Reglan if further concerns. (8) Hypertension: Code(s): I10 - Essential (primary) hypertension Status: Inactive Assessment and Plan: BP reviewed on 05/14 BP elevated at times but could be poor reading. Home Diltiazem remains on hold related to above. Could resume if/when okay with others. (9) Person under investigation for COVID-19: Code(s): Z20.828 - Contact with and (suspected) exposure to other viral communicable diseases Status: Acute Assessment and Plan: Tested for COVID here on 05/09 and was negative. (10) DVT prophylaxis: Code(s): Z29.9 - Encounter for prophylactic measures, unspecified Status: Acute Assessment and Plan: Lovenox Subjective Date/time seen: 05/14/20 12:26 Interval history: Date of service 05/14 60yo male with HTN, hydrocephalus and dementia he
--- NOTE | 2020-05-14 13:19 | WPDINTPN ---
Progress Note: A&P Assessment and Plan (1) Acute respiratory failure with hypoxemia: Code(s): J96.01 - Acute respiratory failure with hypoxia Status: Acute Assessment and Plan: Acute Respiratory failure secondary to pneumonia and septic shock ABG, vent settings and CT chest reviewed CT showed IMPRESSION: 1. No pulmonary embolism but limited study due to motion and streak artifact which decreases sensitivity for pulmonary embolism in the segmental and more significantly the subsegmental pulmonary arteries. 2. Innumerable diffuse small centrilobular nodules and small regions of patchy consolidation consistent with widespread pneumonia including atypical fungal or mycobacterial. Low tidal volume ventilation strategy to prevent volutrauma Bronchodilators 05/11 Sedation holiday performed and patient was trialed on pressure support his RSBI was very high. Patient was placed on pressure support ventilation of 12/5 with adequate tidal volumes. Pressure support ventilation was continued for day while patient was off sedation. 05/12 withdraw ETT by 3 cm, will try pressure support ventilation again today. Patient placed on trial of 12/ 5 will wean down pressure support as tolerated 05/14: Placed patient on pressure support ventilation, 12/10, will drop PSV to 12/5 and continue to wean. (2) Septic shock: Code(s): A41.9 - Sepsis, unspecified organism; R65.21 - Severe sepsis with septic shock Status: Acute Assessment and Plan: Secondary to pneumonia Blood and sputum culture sent and negative till now Continue cefepime but will discontinue vancomycin Patient adequately volume resuscitated will hold further fluids Levophed weaned off Lactic acid has normalized (3) COPD (chronic obstructive pulmonary disease): Code(s): J44.9 - Chronic obstructive pulmonary disease, unspecified Status: Acute Assessment and Plan: Bronchodilators (4) Person under investigation for COVID-19: Code(s): Z20.828 - Contact with and (suspected) exposure to other viral communicable diseases Status: Acute Assessment and Plan: COVID-19 suspected. SARS-CoV-2 PCR sent and was negative Isolation discontinued (5) Encephalopathy: Code(s): G93.40 - Encephalopathy, unspecified Status: Acute Assessment and Plan: Patient is nonverbal at baseline and has history of hydrocephalus Head CT done in ER which was consistent with hydrocephalus IMPRESSION: 1. No acute intracranial process. 2. Encephalomalacia in the anterior bilateral frontal lobes and temporal lobes which could represent sequela of old infarcts or trauma. Correlate with clinical history. 3. Prominent symmetric enlargement of the ventricles which is out of proportion to the sulci which could be related to either central predominant atrophy or normal pressure hydrocephalus (NPH: clinical triad ataxia/gait disturbance, dementia, urinary incontinence) All sedation is off, also no Ativan should be given. If patient gets agitated will start Precedex infusion at a small dose Baseline unknown -ammonia level negative -patient is waking up, nodding to questions and follows simple commands (6) Dysphagia: Code(s): R13.10 - Dysphagia, unspecified Status: Acute Assessment and Plan: Patient has a PEG tube. Continue tube feedings through PEG tube (7) Edema: Code(s): R60.9 - Edema, unspecified Status: Acute Assessment and Plan: Swelling of right foot. Dopplers were done which were negative for DVT (8) Anemia: Code(s): D64.9 - Anemia, unspecified Status: Acute Assessment and Plan: Hemoglobin 6.4. Patient does have history of chronic anemia. No evidence of bleeding 05/12 transfused 1 unit of packed red cells Hemoglobin stable continue to monitor On PPI stress ulcer prophylaxis (9) Pneumonia: Code(s): J18.9 - Pneumonia, unspecified organism Status: Acute Assessme
[2020-05-14] MEDS: LEVALBUTEROL NEB 1.25 MG/3 ML 0.63 MG INHALATION ×2 (14:21→20:33)
[2020-05-14] MEDS: IPRATROPIUM BR 0.02% INH SOLN 0.5 MG/2.5 ML VIAL INHALATION ×2 (14:22→20:33)
--- NOTE | 2020-05-14 20:40 | PC.NURSE ---
Dr. Alarcon notified of increased respirations of 32 and increased HR. Order for 1mg Ativan IV push x1 now.
[2020-05-14] MEDS: LORazepam INJ (*CRX) 2 MG/ML VIAL 1 MG IV PUSH (20:44)
[2020-05-15] VITALS (27 sets, daily range): BP systolic 102–147; BP diastolic 66–92; PULSE 97–112; RESP 14–31; TEMP 36.7–37.1; O2SAT 96–100
[2020-05-15] MEDS: LEVALBUTEROL NEB 1.25 MG/3 ML 0.63 MG INHALATION ×4 (01:56→20:56)
[2020-05-15] MEDS: IPRATROPIUM BR 0.02% INH SOLN 0.5 MG/2.5 ML VIAL INHALATION ×4 (01:56→20:56)
[2020-05-15 04:22] LABS: Basophils Percent Auto 0.4 % (0.2-1.2); Eosinophils Absolute Auto 0.5 K/mm3 (0-0.3); Eosinophils Percent Auto 7.5 % (0-4.4); Hematocrit 26.6 % (42.0-52.0); Hemoglobin 8.4 g/dL (14.0-18.0); Immature Granulocyte Absolute 0.03 K/mm3 (0.00-0.031); Immature Granulocyte Percent A 0.4 % (0-0.5); Lymphocytes Absolute Auto 1.34 K/mm3 (0.9-3.2); Lymphocytes Percent Auto 19.4 % (18.3-44.2); Mean Corpuscular HGB Conc 31.6 g/dl (32-36); Mean Corpuscular Hemoglobin 24.5 pg (26-34); Mean Corpuscular Volume 77.6 fl (80-100); Mean Platelet Volume 9.8 fl (7.4-10.4); Monocytes Absolute Auto 0.8 K/mm3 (0.1-0.6); Neutrophils Absolute Auto 4.2 K/mm3 (1.3-6.7); Neutrophils Percent Auto 61.3 % (45.5-73.1); Platelet Count Result 412 k/mm3 (150-375); Red Blood Count 3.43 M/mm3 (4.6-6.20); Red Cell Distribution Width 17.2 % (11.5-14.5); White Blood Count 6.9 K/mm3 (4.5-10.0)
[2020-05-15 04:50] LABS: Alveolar/Arterial O2 Gradient 42.1 mmHg; Base Excess ABG 3.6 mEq/l (+/-2.0); Carboxyhemoglobin 0.3 % THb (0-2.0); Fractional Inspired Oxygen 30 %; HCO3 ABG 27.8 mEq/l (22.0-26.0); Methemoglobin ABG 0.4 %THb (0-1.5); Oxygen Content ABG 16.1 %vol (16.0-22.0); Oxygen Saturation ABG 98.6 % (95.0-100.0); Oxyhemoglobin 97.3 % THb (90.0-100.0); PCO2 ABG 40.8 mmHg (35.0-45.0); PO2 ABG 123.9 mmHg (80.0-100.0); PO2 FiO2 Ratio Arterial Blood 4.13 %; Total Hemoglobin 11.6 g/dL (12.0-18.0); pH ABG 7.452 (7.350-7.450)
[2020-05-15 04:51] LABS: Arterial Blood Gas PEEP 5 cmH2O; Arterial Blood Gas Tidal Volume 400 ml; Arterial Blood Gas Vent Mode ASSIST CONTROL; Arterial Blood Gas Ventilator rate 16 /MIN; Device VENTILATOR; Modified Allen's Test Unable to perform; Site Drawn LEFT RADIAL
[2020-05-15 05:17] LABS: Alanine Aminotransferase 18 U/L (4-50); Albumin Level 2.9 g/dL (3.5-5.1); Alkaline Phosphatase 70 U/L (38-126); Anion Gap 4 mmol/L (8-16); Aspartate Amino Transferase 21 U/L (17-59); Bilirubin,Total 0.4 mg/dL (0.2-1.3); Blood Urea Nitrogen 5 mg/dL (9-20); Calcium 8.7 mg/dL (8.4-10.2); Carbon Dioxide 30 mmol/L (22-30); Chloride 102 mmol/L (98-107); Estimated CRCL calculation 115 ml/min; Estimated Glomerular Filt Rate > 60; Glucose 91 mg/dL (75-110); Magnesium 1.5 mg/dL (1.6-2.3); Phosphorus 3.6 mg/dL (2.5-4.5); Potassium 3.7 mmol/L (3.4-5.0); Sodium 136 mmol/L (137-145)
[2020-05-15] MEDS: CENTRAL LINE FLUSH 10 ML IV PUSH ×3 (05:24→20:04)
[2020-05-15] MEDS: busPIRone HCL 10 MG TABLET FEED TUBE ×3 (07:55→16:47)
[2020-05-15] MEDS: FOLIC ACID 1 MG TABLET FEED TUBE (07:56)
[2020-05-15] MEDS: ENOXAPARIN 40 MG/0.4 ML SYRINGE SUB-Q (07:56)
[2020-05-15] MEDS: PANTOPRAZOLE SODIUM IV 40 MG VIAL IV PUSH (07:58)
[2020-05-15] MEDS: MAGNESIUM SULF 2 GM/WATER 50ML 2 GM/50 ML BAG IVPB (11:37)
--- NOTE | 2020-05-15 11:37 | PCDIET ---
Nutrition Follow-Up Complete: Nutrition Diagnosis: Inadequate infusion of enteral nutrition related to respiratory failure as evidenced by NPO. Nutrition Goal: Patient to meet estimated nutritional needs. Goal in progress. RN reports difficulty with tube feeding administration. Plan to manipulate feeding tube and check KUB. Patient previously tolerating Vital 1.2 at 50mL/hr goal rate with 30mL water flush every 4 hours. Last recorded weight is 51.5 kg which is decreased from last review. Bowel Motility: Loose stools continue. If medically appropriate, patient may benefit from use of fiber once feedings able to resume. Labs Reviewed: Hgb (8.4), Hct (26.6), BUN (5), Cr (0.4), Na (134), Alb (2.9) Meds Noted: Azithromycin, Atrovent, Cefepime, LR at 30mL/hr, Xopenex, Fentanyl, Folic Acid, Magnesium Sulfate, Protonix Additional Notes: Buttocks reddened, per RN; Mepilex in place. Will continue to monitor with same goal. Nutrition Monitoring and Evaluation: Follow up every Thursday/Thursday.
--- NOTE | 2020-05-15 12:39 | WPDINTPN ---
Progress Note: A&P Assessment and Plan (1) Acute respiratory failure with hypoxemia: Code(s): J96.01 - Acute respiratory failure with hypoxia Status: Acute Assessment and Plan: Acute Respiratory failure secondary to pneumonia and septic shock ABG, vent settings and CT chest reviewed CT showed IMPRESSION: 1. No pulmonary embolism but limited study due to motion and streak artifact which decreases sensitivity for pulmonary embolism in the segmental and more significantly the subsegmental pulmonary arteries. 2. Innumerable diffuse small centrilobular nodules and small regions of patchy consolidation consistent with widespread pneumonia including atypical fungal or mycobacterial. Low tidal volume ventilation strategy to prevent volutrauma Bronchodilators 05/14: Patient tolerated pressure support ventilation 12/10, he was placed CMV mode in the evening , will again place patient on PSV 05/05 and will wean to 03/05. (2) Septic shock: Code(s): A41.9 - Sepsis, unspecified organism; R65.21 - Severe sepsis with septic shock Status: Acute Assessment and Plan: Secondary to pneumonia Blood and sputum culture sent and negative till now Continue cefepime but will discontinue vancomycin Patient adequately volume resuscitated will hold further fluids OFF LEVOPHED Lactic acid has normalized (3) COPD (chronic obstructive pulmonary disease): Code(s): J44.9 - Chronic obstructive pulmonary disease, unspecified Status: Acute Assessment and Plan: Bronchodilators (4) Person under investigation for COVID-19: Code(s): Z20.828 - Contact with and (suspected) exposure to other viral communicable diseases Status: Acute Assessment and Plan: COVID-19 suspected. SARS-CoV-2 PCR sent and was negative Isolation discontinued (5) Encephalopathy: Code(s): G93.40 - Encephalopathy, unspecified Status: Acute Assessment and Plan: Patient is nonverbal at baseline and has history of hydrocephalus Head CT done in ER which was consistent with hydrocephalus IMPRESSION: 1. No acute intracranial process. 2. Encephalomalacia in the anterior bilateral frontal lobes and temporal lobes which could represent sequela of old infarcts or trauma. Correlate with clinical history. 3. Prominent symmetric enlargement of the ventricles which is out of proportion to the sulci which could be related to either central predominant atrophy or normal pressure hydrocephalus (NPH: clinical triad ataxia/gait disturbance, dementia, urinary incontinence) All sedation is off, also no Ativan should be given. If patient gets agitated will start Precedex infusion at a small dose Baseline unknown -ammonia level negative -patient is waking up, nodding to questions and follows simple commands (6) Dysphagia: Code(s): R13.10 - Dysphagia, unspecified Status: Acute Assessment and Plan: Patient has a PEG tube. Continue tube feedings through PEG tube (7) Edema: Code(s): R60.9 - Edema, unspecified Status: Acute Assessment and Plan: Swelling of right foot. Dopplers were done which were negative for DVT (8) Anemia: Code(s): D64.9 - Anemia, unspecified Status: Acute Assessment and Plan: Hemoglobin 6.4. Patient does have history of chronic anemia. No evidence of bleeding 05/12 transfused 1 unit of packed red cells Hemoglobin stable continue to monitor On PPI stress ulcer prophylaxis (9) Pneumonia: Code(s): J18.9 - Pneumonia, unspecified organism Status: Acute Assessment and Plan: See above (10) DVT prophylaxis: Code(s): Z29.9 - Encounter for prophylactic measures, unspecified Status: Acute Assessment and Plan: Lovenox Additional Plan DVT prophylaxis -Lovenox Stress ulcer prophylaxis -continue PPI Nutrition -continue tube feeding D/w with Torres, Pt's daughter and updated her with pt's condition and plan of ca
--- NOTE | 2020-05-15 16:25 | PM.IMPN ---
Progress Note: A&P Assessment and Plan (1) Acute respiratory failure with hypoxemia: Code(s): J96.01 - Acute respiratory failure with hypoxia Status: Acute Assessment and Plan: Patient presents with acute onset respiratory failure on 05/09. CTA chest on admission showing innumerable diffuse small centrilobular nodules and small regions of patchy consolidation consistent with widespread pneumonia including atypical fungal or mycobacterial; no PE. Patient intubated in the ED. He remains stable on mechanical ventilation. ABG 7.47/37/160 on 30% FiO2, PEEP 5 AC rate 16 and TV 400 today. CXR reviewed today showing decrease in the bibasilar airspace disease. Continue broad spectrum abx, neb treatments. (2) Pneumonia: Code(s): J18.9 - Pneumonia, unspecified organism Status: Acute Assessment and Plan: CTA chest 05/09 showing no PE but does show innumerable diffuse small centrilobular nodules and small regions of patchy consolidation consistent with widespread pneumonia including atypical fungal or mycobacterial. BCx NGTD. Sputum Cx negative. Echo normal. WBC remains normal. No fevers. Continue Cefepime, Azithro Day 5. Stopped Vanc (3) Septic shock: Code(s): A41.9 - Sepsis, unspecified organism; R65.21 - Severe sepsis with septic shock Status: Acute Assessment and Plan: Present on admission with leukocytosis, tachycardia and lactic acidosis. Abx started for PNA. UA not consistent with UTI. BCx NGTD. Did develop septic shock on the evening of admission requiring central line placement and started on Levophed. Able to be titrated off 05/11. Follow closely. (4) Encephalopathy: Code(s): G93.40 - Encephalopathy, unspecified Status: Acute Assessment and Plan: Patient with acute on chronic encephalopathy. Acute process related to above. 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 (5) COPD (chronic obstructive pulmonary disease): Code(s): J44.9 - Chronic obstructive pulmonary disease, unspecified Status: Acute Assessment and Plan: Patient has hx of COPD but no significant smoking hx per family. No wheezing. Follow (6) Anemia: Code(s): D64.9 - Anemia, unspecified Status: Acute Assessment and Plan: Hgb 11.8 on admission. Hgb dropped to 7 range but now down to 6.4 11/ morning (7.7 by ABG). Iron studies related to anemia of chronic disease with normal ferritin and very low TIBC. No evidence of rectal bleeding. PRBC x 1U ordered. Repeat Hgb 8.6 and 8.4 again this morning. Follow for stability. Continue Protonix. (7) Dysphagia: Code(s): R13.10 - Dysphagia, unspecified Status: Acute Assessment and Plan: with G-tube. Nurse at facility felt patient is still aspirating secretions and may be having reflux causing the chronic nausea and aspiration. Explained to family that this may be a chronic issue causing these episodes of respiratory failure. TF resumed and patient tolerating. May need Reglan if further concerns. Consider scopolamine patch. (8) Hypertension: Code(s): I10 - Essential (primary) hypertension Status: Inactive Assessment and Plan: BP reviewed on 05/15 BP well controlled. Home Diltiazem remains on hold related to above. Could resume if/when okay with others. (9) Person under investigation for COVID-19: Code(s): Z20.828 - Contact with and (suspected) exposure to other viral communicable diseases Status: Acute Assessment and Plan: Tested for COVID here on 05/09 and was negative. (10) DVT prophylaxis: Code(s): Z29.9 - Encounter for prophylactic measures, unspecified Status: Acute Assessment and Plan: Allienox Subjective Date/time seen: 05/15/20 16:25 Interval history: Date of service 05/15 60yo male with HTN, hydrocephalus and dementia he
[2020-05-15] MEDS: TOLNAFTATE 1% POWDER 45 GM BTL 1 APPLIC TOPICAL (20:04)
[2020-05-16] VITALS (27 sets, daily range): BP systolic 107–137; BP diastolic 69–90; PULSE 67–109; RESP 17–36; TEMP 37–37.2; O2SAT 96–100
[2020-05-16] MEDS: LEVALBUTEROL NEB 1.25 MG/3 ML 0.63 MG INHALATION ×4 (02:30→21:02)
[2020-05-16] MEDS: IPRATROPIUM BR 0.02% INH SOLN 0.5 MG/2.5 ML VIAL INHALATION ×4 (02:31→21:02)
[2020-05-16 04:25] LABS: Alveolar/Arterial O2 Gradient 49.7 mmHg; Base Excess ABG 2.4 mEq/l (+/-2.0); Carboxyhemoglobin 0.3 % THb (0-2.0); Fractional Inspired Oxygen 30 %; HCO3 ABG 26.5 mEq/l (22.0-26.0); Methemoglobin ABG 0.5 %THb (0-1.5); Oxygen Content ABG 12.6 %vol (16.0-22.0); Oxygen Saturation ABG 98.5 % (95.0-100.0); PCO2 ABG 38.9 mmHg (35.0-45.0); PO2 ABG 118.5 mmHg (80.0-100.0); PO2 FiO2 Ratio Arterial Blood 3.95 %; Reduced Hemoglobin 2.2 %THb (0-5.0); Total Hemoglobin 9.1 g/dL (12.0-18.0); pH ABG 7.451 (7.350-7.450)
[2020-05-16 04:26] LABS: Device VENTILATOR; Modified Allen's Test Pass; Site Drawn LEFT RADIAL
[2020-05-16 04:27] LABS: Arterial Blood Gas PEEP 5 cmH2O; Arterial Blood Gas Pressure Support 12 cmH2O; Arterial Blood Gas Vent Mode PRESSURE SUPPORT
[2020-05-16 05:20] LABS: Hemoglobin 8.4 g/dL (14.0-18.0); Mean Corpuscular HGB Conc 31.1 g/dl (32-36); Mean Corpuscular Hemoglobin 24.8 pg (26-34); Mean Corpuscular Volume 79.6 fl (80-100); Mean Platelet Volume 9.9 fl (7.4-10.4); Platelet Count Result 422 k/mm3 (150-375); Red Blood Count 3.39 M/mm3 (4.6-6.20); Red Cell Distribution Width 17.6 % (11.5-14.5); White Blood Count 5.6 K/mm3 (4.5-10.0)
[2020-05-16 05:38] LABS: Anion Gap 3 mmol/L (8-16); Blood Urea Nitrogen 5 mg/dL (9-20); Calcium 8.6 mg/dL (8.4-10.2); Carbon Dioxide 31 mmol/L (22-30); Chloride 103 mmol/L (98-107); Estimated CRCL calculation 114 ml/min; Estimated Glomerular Filt Rate > 60; Glucose 98 mg/dL (75-110); Magnesium 1.9 mg/dL (1.6-2.3); Potassium 3.6 mmol/L (3.4-5.0); Sodium 137 mmol/L (137-145)
[2020-05-16] MEDS: LACTATED RINGERS 1,000 ML 30 ML IV CONT (05:53)
[2020-05-16] MEDS: CENTRAL LINE FLUSH 10 ML IV PUSH ×3 (05:53→22:35)
[2020-05-16] MEDS: FUROSEMIDE INJ 40 MG/4 ML VIAL 20 MG IV PUSH (08:40)
[2020-05-16] MEDS: busPIRone HCL 10 MG TABLET FEED TUBE ×3 (08:41→18:00)
[2020-05-16] MEDS: FOLIC ACID 1 MG TABLET FEED TUBE (08:41)
[2020-05-16] MEDS: PANTOPRAZOLE SODIUM IV 40 MG VIAL IV PUSH (08:41)
[2020-05-16] MEDS: ENOXAPARIN 40 MG/0.4 ML SYRINGE SUB-Q (08:41)
[2020-05-16] MEDS: TOLNAFTATE 1% POWDER 45 GM BTL 1 APPLIC TOPICAL ×2 (08:42→22:35)
--- NOTE | 2020-05-16 12:32 | WPDINTPN ---
Progress Note: A&P Assessment and Plan (1) Acute respiratory failure with hypoxemia: Code(s): J96.01 - Acute respiratory failure with hypoxia Status: Acute Assessment and Plan: Acute Respiratory failure secondary to pneumonia and septic shock Chest x-ray and ABGs reviewed, patient currently on PSV 12/5 and has tolerated all day and all night. -patient has lot of secretions, starting Pulmozyme -place patient on PSV 10/5, decent tidal volumes, will evaluate for extubation once be decrease it to 8/5 05/14: Patient tolerated pressure support ventilation 14/5, he was placed CMV mode in the evening , will again place patient on PSV 12/5 and will wean to 10/5. (2) Septic shock: Code(s): A41.9 - Sepsis, unspecified organism; R65.21 - Severe sepsis with septic shock Status: Acute Assessment and Plan: Secondary to pneumonia Blood and sputum culture sent and negative till now Continue cefepime but will discontinue vancomycin Patient adequately volume resuscitated will hold further fluids OFF LEVOPHED Lactic acid has normalized (3) COPD (chronic obstructive pulmonary disease): Code(s): J44.9 - Chronic obstructive pulmonary disease, unspecified Status: Acute Assessment and Plan: Bronchodilators (4) Person under investigation for COVID-19: Code(s): Z20.828 - Contact with and (suspected) exposure to other viral communicable diseases Status: Acute Assessment and Plan: COVID-19 suspected. SARS-CoV-2 PCR sent and was negative Isolation discontinued (5) Encephalopathy: Code(s): G93.40 - Encephalopathy, unspecified Status: Acute Assessment and Plan: Patient is nonverbal at baseline and has history of hydrocephalus Head CT done in ER which was consistent with hydrocephalus IMPRESSION: 1. No acute intracranial process. 2. Encephalomalacia in the anterior bilateral frontal lobes and temporal lobes which could represent sequela of old infarcts or trauma. Correlate with clinical history. 3. Prominent symmetric enlargement of the ventricles which is out of proportion to the sulci which could be related to either central predominant atrophy or normal pressure hydrocephalus (NPH: clinical triad ataxia/gait disturbance, dementia, urinary incontinence) All sedation is off, also no Ativan should be given. If patient gets agitated will start Precedex infusion at a small dose Baseline unknown -ammonia level negative -patient is waking up, nodding to questions and follows simple commands (6) Dysphagia: Code(s): R13.10 - Dysphagia, unspecified Status: Acute Assessment and Plan: Patient has a PEG tube. Continue tube feedings through PEG tube (7) Edema: Code(s): R60.9 - Edema, unspecified Status: Acute Assessment and Plan: Swelling of right foot. Dopplers were done which were negative for DVT (8) Anemia: Code(s): D64.9 - Anemia, unspecified Status: Acute Assessment and Plan: Hemoglobin 6.4. Patient does have history of chronic anemia. No evidence of bleeding 05/12 transfused 1 unit of packed red cells Hemoglobin stable continue to monitor On PPI stress ulcer prophylaxis (9) Pneumonia: Code(s): J18.9 - Pneumonia, unspecified organism Status: Acute Assessment and Plan: See above (10) DVT prophylaxis: Code(s): Z29.9 - Encounter for prophylactic measures, unspecified Status: Acute Assessment and Plan: Lovenox Additional Plan DVT prophylaxis -Lovenox Stress ulcer prophylaxis -continue PPI Nutrition -continue tube feeding D/w with Torres, Pt's daughter and updated her with pt's condition and plan of care. I answered her and her aunt's questions. I updated them regarding breathing trials but is still requiring more support from the breathing machine. I also discussed that if he is not able to extubate due to his deconditioning and severe weakness and decreas
--- NOTE | 2020-05-16 13:40 | PCDIET ---
ICU Rounding Note: Patient tolerating Vital 1.2 at 50mL/hr goal rate with 30mL water flush every 4 hours. Gastric residuals 100mL and below. Last recorded weight is 51.3kg which is stable with last review. Bowel Motility: +Liquid stools - checking for c. diff. Labs Reviewed: Hgb (8.4), Hct (27.0), BUN (5), Cr (0.4) Meds Noted: Azithromycin, Maxipime, Xopenex, Fentanyl, Folic Acid, Protonix, Atrovent, LR at 30mL/hr, Lasix Additional Notes: Right foot with deep tissue - integumentary notes reviewed. Following daily in ICU rounds. Assessing/reassessing every Thursday/Thursday.
--- NOTE | 2020-05-16 17:10 | PM.IMPN ---
Progress Note: A&P Assessment and Plan (1) Acute respiratory failure with hypoxemia: Code(s): J96.01 - Acute respiratory failure with hypoxia Status: Acute Assessment and Plan: Patient presents with acute onset respiratory failure on 05/09. CTA chest on admission showing innumerable diffuse small centrilobular nodules and small regions of patchy consolidation consistent with widespread pneumonia including atypical fungal or mycobacterial; no PE. Patient intubated in the ED. He remains stable on mechanical ventilation. ABG 7.47/37/160 on 30% FiO2, PEEP 5 AC rate 16 and TV 400 today. CXR reviewed today showing decrease in the bibasilar airspace disease. Continue broad spectrum abx, neb treatments. Possible extubate 05/17 (2) Pneumonia: Code(s): J18.9 - Pneumonia, unspecified organism Status: Acute Assessment and Plan: CTA chest 05/09 showing no PE but does show innumerable diffuse small centrilobular nodules and small regions of patchy consolidation consistent with widespread pneumonia including atypical fungal or mycobacterial. BCx NGTD. Sputum Cx negative. Echo normal. WBC remains normal. No fevers. Continue Cefepime, Azithro Day 6. Stopped Vanc (3) Septic shock: Code(s): A41.9 - Sepsis, unspecified organism; R65.21 - Severe sepsis with septic shock Status: Acute Assessment and Plan: Present on admission with leukocytosis, tachycardia and lactic acidosis. Abx started for PNA. UA not consistent with UTI. BCx NGTD. Did develop septic shock on the evening of admission requiring central line placement and started on Levophed. Able to be titrated off 05/11. Follow closely. (4) Encephalopathy: Code(s): G93.40 - Encephalopathy, unspecified Status: Acute Assessment and Plan: Patient with acute on chronic encephalopathy. Acute process related to above. 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 (5) COPD (chronic obstructive pulmonary disease): Code(s): J44.9 - Chronic obstructive pulmonary disease, unspecified Status: Acute Assessment and Plan: Patient has hx of COPD but no significant smoking hx per family. No wheezing. Follow (6) Anemia: Code(s): D64.9 - Anemia, unspecified Status: Acute Assessment and Plan: Hgb 11.8 on admission. Hgb dropped to 7 range but now down to 6.4 04/13 morning (7.7 by ABG). Iron studies related to anemia of chronic disease with normal ferritin and very low TIBC. No evidence of rectal bleeding. PRBC x 1U ordered. Repeat Hgb 8.4 again this morning. Follow for stability. Continue Protonix. (7) Dysphagia: Code(s): R13.10 - Dysphagia, unspecified Status: Acute Assessment and Plan: with G-tube. Nurse at facility felt patient is still aspirating secretions and may be having reflux causing the chronic nausea and aspiration. Explained to family that this may be a chronic issue causing these episodes of respiratory failure. TF resumed and patient tolerating. May need Reglan if further concerns. Consider scopolamine patch. (8) Hypertension: Code(s): I10 - Essential (primary) hypertension Status: Inactive Assessment and Plan: BP reviewed on 05/16 BP well controlled. Home Diltiazem remains on hold related to above. Could resume if/when okay with others. (9) Person under investigation for COVID-19: Code(s): Z20.828 - Contact with and (suspected) exposure to other viral communicable diseases Status: Acute Assessment and Plan: Tested for COVID here on 05/09 and was negative. (10) DVT prophylaxis: Code(s): Z29.9 - Encounter for prophylactic measures, unspecified Status: Acute Assessment and Plan: Lovenox Subjective Date/time seen: 05/16/20 17:10 Interval history: Date of service 05/16 60yo male with HTN, hydrocephalus
[2020-05-16 19:18] LABS: Vancomycin Trough < 5.0 ug/mL (10.0-20.0)
[2020-05-16] MEDS: DORNASE ALFA INH SOLN 1 MG/ML 2.5 ML AMP 2.5 MG INHALATION (21:03)
[2020-05-17] VITALS (26 sets, daily range): BP systolic 117–160; BP diastolic 72–95; PULSE 80–108; RESP 18–35; TEMP 36.7–37.1; O2SAT 94–100
[2020-05-17] MEDS: IPRATROPIUM BR 0.02% INH SOLN 0.5 MG/2.5 ML VIAL INHALATION ×4 (02:45→20:26)
[2020-05-17] MEDS: LEVALBUTEROL NEB 1.25 MG/3 ML 0.63 MG INHALATION ×4 (02:46→20:26)
[2020-05-17 05:30] LABS: Alveolar/Arterial O2 Gradient 65.7 mmHg; Base Excess ABG 4.2 mEq/l (+/-2.0); Carboxyhemoglobin 0.2 % THb (0-2.0); Fractional Inspired Oxygen 30 %; HCO3 ABG 28.5 mEq/l (22.0-26.0); Methemoglobin ABG 0.3 %THb (0-1.5); Oxygen Content ABG 13.6 %vol (16.0-22.0); Oxygen Saturation ABG 97.8 % (95.0-100.0); Oxyhemoglobin 96.5 % THb (90.0-100.0); PCO2 ABG 41.6 mmHg (35.0-45.0); PO2 ABG 99.3 mmHg (80.0-100.0); PO2 FiO2 Ratio Arterial Blood 3.31 %; Total Hemoglobin 9.9 g/dL (12.0-18.0); pH ABG 7.453 (7.350-7.450)
[2020-05-17 05:32] LABS: Device VENTILATOR; Modified Allen's Test Pass; Site Drawn RIGHT RADIAL
[2020-05-17 05:33] LABS: Arterial Blood Gas PEEP 5 cmH2O; Arterial Blood Gas Pressure Support 10 cmH2O; Arterial Blood Gas Vent Mode PRESSURE SUPPORT
[2020-05-17] MEDS: CENTRAL LINE FLUSH 10 ML IV PUSH ×3 (05:58→21:14)
[2020-05-17 06:35] LABS: Basophils Percent Auto 0.5 % (0.2-1.2); Eosinophils Absolute Auto 0.4 K/mm3 (0-0.3); Hematocrit 28.1 % (42.0-52.0); Hemoglobin 8.6 g/dL (14.0-18.0); Immature Granulocyte Absolute 0.02 K/mm3 (0.00-0.031); Immature Granulocyte Percent A 0.4 % (0-0.5); Lymphocytes Percent Auto 20.1 % (18.3-44.2); Mean Corpuscular HGB Conc 30.6 g/dl (32-36); Mean Corpuscular Hemoglobin 24.6 pg (26-34); Mean Corpuscular Volume 80.5 fl (80-100); Mean Platelet Volume 10.1 fl (7.4-10.4); Monocytes Absolute Auto 0.6 K/mm3 (0.1-0.6); Monocytes Percent Auto 11.2 % (2.6-8.5); Neutrophils Absolute Auto 3.3 K/mm3 (1.3-6.7); Neutrophils Percent Auto 59.8 % (45.5-73.1); Platelet Count Result 419 k/mm3 (150-375); Red Blood Count 3.49 M/mm3 (4.6-6.20); Red Cell Distribution Width 17.9 % (11.5-14.5); White Blood Count 5.5 K/mm3 (4.5-10.0)
[2020-05-17 06:54] LABS: Anion Gap 4 mmol/L (8-16); Blood Urea Nitrogen 6 mg/dL (9-20); Carbon Dioxide 32 mmol/L (22-30); Chloride 101 mmol/L (98-107); Estimated CRCL calculation 115 ml/min; Estimated Glomerular Filt Rate > 60; Glucose 95 mg/dL (75-110); Magnesium 1.8 mg/dL (1.6-2.3); Phosphorus 3.6 mg/dL (2.5-4.5); Potassium 3.7 mmol/L (3.4-5.0); Sodium 137 mmol/L (137-145)
[2020-05-17] MEDS: DORNASE ALFA INH SOLN 1 MG/ML 2.5 ML AMP 2.5 MG INHALATION ×3 (08:19→20:27)
[2020-05-17] MEDS: FUROSEMIDE INJ 40 MG/4 ML VIAL IV PUSH (09:13)
[2020-05-17] MEDS: busPIRone HCL 10 MG TABLET FEED TUBE ×3 (09:14→16:18)
[2020-05-17] MEDS: ENOXAPARIN 40 MG/0.4 ML SYRINGE SUB-Q (09:14)
[2020-05-17] MEDS: FOLIC ACID 1 MG TABLET FEED TUBE (09:14)
[2020-05-17] MEDS: PANTOPRAZOLE SODIUM IV 40 MG VIAL IV PUSH (09:15)
[2020-05-17] MEDS: TOLNAFTATE 1% POWDER 45 GM BTL 1 APPLIC TOPICAL ×2 (09:15→21:26)
--- NOTE | 2020-05-17 11:33 | PCDIET ---
ICU Rounding Note: Patient tolerating Vital 1.2 at 50mL/hr via PEG. Possible plan for extubation later today. MD order for Banatrol TID 2/2 loose stools. Last recorded weight is 51.5kg which is stable with last review. Bowel Motility: Loose stools - BM x 2 thus far today - rectal tube was unable to stay in place Labs Reviewed: Hgb (8.6), Hct (28.1), BUN (6), Cr (0.4) Meds Noted: Zithromax, Atrovent, Cefepime, Fentanyl, LR at 30mL/hr, Lasix, Folic Acid, Xopenex, Protonix Additional Notes: Right foot with deep tissue area; Mepilex to coccyx which is unopened. Following daily in ICU rounds. Assessing/reassessing every Thursday/Thursday.
[2020-05-17 12:05] LABS: Alveolar/Arterial O2 Gradient 32.1 mmHg; Base Excess ABG 4.7 mEq/l (+/-2.0); Carboxyhemoglobin 0.3 % THb (0-2.0); Fractional Inspired Oxygen 30 %; HCO3 ABG 28.5 mEq/l (22.0-26.0); Methemoglobin ABG 0.3 %THb (0-1.5); Oxygen Saturation ABG 98.9 % (95.0-100.0); Oxyhemoglobin 97.6 % THb (90.0-100.0); PCO2 ABG 39.2 mmHg (35.0-45.0); PO2 ABG 135.7 mmHg (80.0-100.0); PO2 FiO2 Ratio Arterial Blood 4.52 %; Reduced Hemoglobin 1.8 %THb (0-5.0)
[2020-05-17 12:07] LABS: Device VENTILATOR; Modified Allen's Test Pass; Site Drawn RIGHT RADIAL
[2020-05-17 12:08] LABS: Arterial Blood Gas PEEP 5 cmH2O; Arterial Blood Gas Pressure Support 10 cmH2O; Arterial Blood Gas Vent Mode PRESSURE SUPPORT
--- NOTE | 2020-05-17 13:27 | WPDINTPN ---
Progress Note: A&P Assessment and Plan (1) Acute respiratory failure with hypoxemia: Code(s): J96.01 - Acute respiratory failure with hypoxia Status: Acute Assessment and Plan: Acute Respiratory failure secondary to pneumonia and septic shock -intubated on 05/09/2020 - Chest x-ray and ABGs reviewed -secretions have improved with Pulmozyme -tolerated PSV 10/5, all day and all night yesterday, will place patient on SBT H 8/5 and evaluate for extubation today (2) Septic shock: Code(s): A41.9 - Sepsis, unspecified organism; R65.21 - Severe sepsis with septic shock Status: Acute Assessment and Plan: Resolved Secondary to pneumonia Blood and sputum culture sent and negative till now Continue cefepime but will discontinue vancomycin Patient adequately volume resuscitated will hold further fluids OFF LEVOPHED Lactic acid has normalized (3) COPD (chronic obstructive pulmonary disease): Code(s): J44.9 - Chronic obstructive pulmonary disease, unspecified Status: Acute Assessment and Plan: Bronchodilators (4) Person under investigation for COVID-19: Code(s): Z20.828 - Contact with and (suspected) exposure to other viral communicable diseases Status: Acute Assessment and Plan: COVID-19 suspected. SARS-CoV-2 PCR sent and was negative Isolation discontinued (5) Encephalopathy: Code(s): G93.40 - Encephalopathy, unspecified Status: Acute Assessment and Plan: RESOLVED Patient is nonverbal at baseline and has history of hydrocephalus Head CT done in ER which was consistent with hydrocephalus IMPRESSION: 1. No acute intracranial process. 2. Encephalomalacia in the anterior bilateral frontal lobes and temporal lobes which could represent sequela of old infarcts or trauma. Correlate with clinical history. 3. Prominent symmetric enlargement of the ventricles which is out of proportion to the sulci which could be related to either central predominant atrophy or normal pressure hydrocephalus (NPH: clinical triad ataxia/gait disturbance, dementia, urinary incontinence) All sedation is off, also no Ativan should be given. If patient gets agitated will start Precedex infusion at a small dose Baseline unknown -ammonia level negative -patient is waking up, nodding to questions and follows simple commands (6) Dysphagia: Code(s): R13.10 - Dysphagia, unspecified Status: Acute Assessment and Plan: Patient has a PEG tube. Continue tube feedings through PEG tube -will add Banatrol plus for diarrhea (7) Edema: Code(s): R60.9 - Edema, unspecified Status: Acute Assessment and Plan: Swelling of right foot. Dopplers were done which were negative for DVT (8) Anemia: Code(s): D64.9 - Anemia, unspecified Status: Acute Assessment and Plan: Hemoglobin 6.4. Patient does have history of chronic anemia. No evidence of bleeding 05/12 transfused 1 unit of packed red cells Hemoglobin stable continue to monitor On PPI stress ulcer prophylaxis (9) Pneumonia: Code(s): J18.9 - Pneumonia, unspecified organism Status: Acute Assessment and Plan: See above (10) DVT prophylaxis: Code(s): Z29.9 - Encounter for prophylactic measures, unspecified Status: Acute Assessment and Plan: Lovenox Additional Plan DVT prophylaxis -Lovenox Stress ulcer prophylaxis -continue PPI Nutrition -continue tube feeding D/w with Torres, Pt's daughter and updated her with pt's condition and plan of care. I answered her and her aunt's questions. I updated them regarding breathing trials but is still requiring more support from the breathing machine. I also discussed that if he is not able to extubate due to his deconditioning and severe weakness and decreased mental status he may be looking at a tracheostomy to which they agreeable. I also discussed with them regarding CPR in case of a cardiac arre
--- NOTE | 2020-05-17 15:41 | PC.NURSE ---
RN spoke with Rosemary, pt sister and she wanted a update. Explained to Rosemary that we are only suppose to give updates to Torres, daughter. She stated she was upset because she just spoke with steff Aparicio and gave her information about pt. explained to Rosemary that i would call her back. Spoke with steff Aparicio and she stated she called Torres, daughter today and daughter asked her to call Rosemary and get information from sister Riley. Alessandra received verbal ok to talk to Rosemary. Bonnie Andrade, director called Torres and explained that she has final say in pt interventions. also that she will up updated on pt condition and be the responsible republican. Bonnie requested that we update her and she updated pt sisters. RN updated daughter on pt condition RN attempted to contact pt sister, Rosemary to update and no answer.
--- NOTE | 2020-05-17 16:20 | PM.IMPN ---
Progress Note: A&P Assessment and Plan (1) Acute respiratory failure with hypoxemia: Code(s): J96.01 - Acute respiratory failure with hypoxia Status: Acute Assessment and Plan: Patient presents with acute onset respiratory failure on 05/09. CTA chest on admission showing innumerable diffuse small centrilobular nodules and small regions of patchy consolidation consistent with widespread pneumonia including atypical fungal or mycobacterial; no PE. Patient intubated in the ED. Extubated today 05/17 CXR reviewed today showing decrease in the bibasilar airspace disease. Continue broad spectrum abx, neb treatments. (2) Pneumonia: Code(s): J18.9 - Pneumonia, unspecified organism Status: Acute Assessment and Plan: CTA chest 05/09 showing no PE but does show innumerable diffuse small centrilobular nodules and small regions of patchy consolidation consistent with widespread pneumonia including atypical fungal or mycobacterial. BCx NGTD. Sputum Cx negative. Echo normal. WBC remains normal. No fevers. Continue Cefepime, Azithro Day 9. Stopped Vanc (3) Septic shock: Code(s): A41.9 - Sepsis, unspecified organism; R65.21 - Severe sepsis with septic shock Status: Acute Assessment and Plan: Present on admission with leukocytosis, tachycardia and lactic acidosis. Abx started for PNA. UA not consistent with UTI. BCx NGTD. Did develop septic shock on the evening of admission requiring central line placement and started on Levophed. Able to be titrated off 05/11. Follow closely. (4) Encephalopathy: Code(s): G93.40 - Encephalopathy, unspecified Status: Acute Assessment and Plan: Patient with acute on chronic encephalopathy. Acute process related to above. 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 (5) COPD (chronic obstructive pulmonary disease): Code(s): J44.9 - Chronic obstructive pulmonary disease, unspecified Status: Acute Assessment and Plan: Patient has hx of COPD but no significant smoking hx per family. No wheezing. Follow (6) Anemia: Code(s): D64.9 - Anemia, unspecified Status: Acute Assessment and Plan: Hgb 11.8 on admission. Hgb dropped to 7 range but now down to 6.4 11/13 morning (7.7 by ABG). Iron studies related to anemia of chronic disease with normal ferritin and very low TIBC. No evidence of rectal bleeding. PRBC x 1U ordered. Repeat Hgb 8.6 this morning. Follow for stability. Continue Protonix. (7) Dysphagia: Code(s): R13.10 - Dysphagia, unspecified Status: Acute Assessment and Plan: with G-tube. Nurse at facility felt patient is still aspirating secretions and may be having reflux causing the chronic nausea and aspiration. Explained to family that this may be a chronic issue causing these episodes of respiratory failure. TF resumed and patient tolerating. May need Reglan if further concerns. Consider scopolamine patch. (8) Hypertension: Code(s): I10 - Essential (primary) hypertension Status: Inactive Assessment and Plan: BP reviewed on 05/16 BP well controlled. Home Diltiazem remains on hold related to above. . (9) Person under investigation for COVID-19: Code(s): Z20.828 - Contact with and (suspected) exposure to other viral communicable diseases Status: Acute Assessment and Plan: Tested for COVID here on 05/09 and was negative. (10) DVT prophylaxis: Code(s): Z29.9 - Encounter for prophylactic measures, unspecified Status: Acute Assessment and Plan: Lovenox Subjective Date/time seen: 05/17/20 16:20 Interval history: Date of service 05/17 60yo male with HTN, hydrocephalus and dementia here for acute respiratory failure. . Not on sedation. Tolerating TF. Extubated today Exam Narrative: Exam Narrative: AF 98.
[2020-05-17] MEDS: LACTATED RINGERS 1,000 ML 30 ML IV CONT (16:26)
[2020-05-18] VITALS (21 sets, daily range): BP systolic 127–161; BP diastolic 74–106; PULSE 93–125; RESP 14–33; TEMP 36.1–36.9; O2SAT 20–100
[2020-05-18] MEDS: LEVALBUTEROL NEB 1.25 MG/3 ML 0.63 MG INHALATION ×4 (01:45→21:25)
[2020-05-18] MEDS: IPRATROPIUM BR 0.02% INH SOLN 0.5 MG/2.5 ML VIAL INHALATION ×4 (01:45→21:25)
[2020-05-18] MEDS: CENTRAL LINE FLUSH 10 ML IV PUSH ×3 (05:52→22:00)
[2020-05-18] MEDS: DORNASE ALFA INH SOLN 1 MG/ML 2.5 ML AMP 2.5 MG INHALATION ×2 (08:13→21:26)
[2020-05-18] MEDS: busPIRone HCL 10 MG TABLET FEED TUBE ×3 (09:02→18:20)
[2020-05-18] MEDS: ENOXAPARIN 40 MG/0.4 ML SYRINGE SUB-Q (09:03)
[2020-05-18] MEDS: PANTOPRAZOLE SODIUM IV 40 MG VIAL IV PUSH (09:03)
[2020-05-18] MEDS: FOLIC ACID 1 MG TABLET FEED TUBE (09:04)
[2020-05-18] MEDS: TOLNAFTATE 1% POWDER 45 GM BTL 1 APPLIC TOPICAL ×2 (09:04→23:02)
[2020-05-18] MEDS: ONDANSETRON INJ 4 MG/2 ML VIAL IV PUSH (09:45)
--- NOTE | 2020-05-18 09:51 | PC.NURSE ---
Patient received antidiarrhea medicine via gtube. Large leiva emesis noted 15 minuted post flush. MD notified. Tube feeds head, Zofran IVP given
[2020-05-18] MEDS: METOCLOPRAMIDE HCL INJ 10 MG/2 ML VIAL 5 MG IV PUSH ×3 (11:28→23:11)
--- NOTE | 2020-05-18 11:44 | PCDIET ---
Nutrition Follow-Up Complete: Nutrition Diagnosis: Inadequate infusion of enteral nutrition related to respiratory failure as evidenced by NPO. Nutrition Goal: Patient to meet estimated nutritional needs. Goal in progress. Patient previously tolerating Vital 1.2 at 50mL/hr with 30mL water flush every 4 hours and Banatrol TID; however, emesis reported this morning with tube feedings currently on hold. MD ordering Reglan. If no improvement, may need to consider conversion to j-tube. Last recorded weight is 50.9 kg which is slightly down from last review. +I/O noted. Bowel Motility: BM x 2 on 05/17/20. Labs Reviewed: No new lab results. Meds Noted: Azithromycin, Cefepime, Folic Acid, Atrovent, Xopenex, Reglan, Protonix Additional Notes: Deep tissue area to right foot. Will continue to monitor with same goals. Nutrition Monitoring and Evaluation: Follow up every Thursday/Thursday.
--- NOTE | 2020-05-18 15:00 | PC.NURSE ---
This patient, King Sullivan, was received from ICU 5 on 05/18/20 at 1500. Patient/family oriented to unit policies and routines.
--- NOTE | 2020-05-18 15:00 | WPDINTPN ---
Progress Note: A&P Assessment and Plan (1) Acute respiratory failure with hypoxemia: Code(s): J96.01 - Acute respiratory failure with hypoxia Status: Acute Assessment and Plan: Acute Respiratory failure secondary to pneumonia and septic shock -intubated on 05/09/2020 -successfully extubated on 05/17 -remains on room air with good O2 sats -secretions have improved (2) Septic shock: Code(s): A41.9 - Sepsis, unspecified organism; R65.21 - Severe sepsis with septic shock Status: Acute Assessment and Plan: Resolved Secondary to pneumonia Blood and sputum culture sent and negative till now Continue cefepime but will discontinue vancomycin Patient adequately volume resuscitated will hold further fluids OFF LEVOPHED Lactic acid has normalized (3) COPD (chronic obstructive pulmonary disease): Code(s): J44.9 - Chronic obstructive pulmonary disease, unspecified Status: Acute Assessment and Plan: Continue Bronchodilators (4) Person under investigation for COVID-19: Code(s): Z20.828 - Contact with and (suspected) exposure to other viral communicable diseases Status: Acute Assessment and Plan: COVID-19 suspected. SARS-CoV-2 PCR sent and was negative Isolation discontinued (5) Encephalopathy: Code(s): G93.40 - Encephalopathy, unspecified Status: Acute Assessment and Plan: RESOLVED Patient is nonverbal at baseline and has history of hydrocephalus Head CT done in ER which was consistent with hydrocephalus IMPRESSION: 1. No acute intracranial process. 2. Encephalomalacia in the anterior bilateral frontal lobes and temporal lobes which could represent sequela of old infarcts or trauma. Correlate with clinical history. 3. Prominent symmetric enlargement of the ventricles which is out of proportion to the sulci which could be related to either central predominant atrophy or normal pressure hydrocephalus (NPH: clinical triad ataxia/gait disturbance, dementia, urinary incontinence) All sedation is off, also no Ativan should be given. If patient gets agitated will start Precedex infusion at a small dose Baseline unknown -ammonia level negative -patient is waking up, nodding to questions and follows simple commands (6) Dysphagia: Code(s): R13.10 - Dysphagia, unspecified Status: Acute Assessment and Plan: Patient has a PEG tube. Continue tube feedings through PEG tube -will add Banatrol plus for diarrhea -will have speech to follow for swallow test (7) Edema: Code(s): R60.9 - Edema, unspecified Status: Acute Assessment and Plan: Swelling of right foot. Dopplers were done which were negative for DVT (8) Anemia: Code(s): D64.9 - Anemia, unspecified Status: Acute Assessment and Plan: Hemoglobin 6.4. Patient does have history of chronic anemia. No evidence of bleeding 05/12 transfused 1 unit of packed red cells Hemoglobin stable continue to monitor On PPI stress ulcer prophylaxis (9) Pneumonia: Code(s): J18.9 - Pneumonia, unspecified organism Status: Acute Assessment and Plan: See above (10) DVT prophylaxis: Code(s): Z29.9 - Encounter for prophylactic measures, unspecified Status: Acute Assessment and Plan: Lovenox Additional Plan DVT prophylaxis -Lovenox Stress ulcer prophylaxis -continue PPI Nutrition -continue tube feeding D/w with Torres, Pt's daughter and updated her with pt's condition and plan of care. I answered her and her aunt's questions. They are aware that patient was extubated on 05/17/2020 been doing well. I answered all questions. I also discussed with them regarding his malnutrition, his weakness and possibility of a repeated hospitalizations. Code Status -full code Patient has been [facility] and [facility] of [facility] in hospitals recently,. He was recently at [facility] and was sent to
--- NOTE | 2020-05-18 15:10 | PC.NURSE ---
This patient, King Sullivan, was transferred to [facility] on 05/18/20 at 1500 via bed without issue. Personal belongings sent with patient. Report given to YVETTE Pete. Appropriate documentation sent with patient.
--- NOTE | 2020-05-18 17:34 | PM.IMPN ---
Progress Note: A&P Assessment and Plan (1) Acute respiratory failure with hypoxemia: Code(s): J96.01 - Acute respiratory failure with hypoxia Status: Acute Assessment and Plan: Patient presents with acute onset respiratory failure on 05/09. CTA chest on admission showing innumerable diffuse small centrilobular nodules and small regions of patchy consolidation consistent with widespread pneumonia including atypical fungal or mycobacterial; no PE. Patient intubated in the ED. Extubated today 05/17 CXR reviewed 05/18 showing decrease in the bibasilar airspace disease. Continue broad spectrum abx, neb treatments. Vanc stopped (2) Pneumonia: Code(s): J18.9 - Pneumonia, unspecified organism Status: Acute Assessment and Plan: CTA chest 05/09 showing no PE but does show innumerable diffuse small centrilobular nodules and small regions of patchy consolidation consistent with widespread pneumonia including atypical fungal or mycobacterial. BCx NGTD. Sputum Cx negative. Echo normal. WBC remains normal. No fevers. Continue Cefepime, Azithro Day 10 and will d/c. Stopped Vanc (3) Septic shock: Code(s): A41.9 - Sepsis, unspecified organism; R65.21 - Severe sepsis with septic shock Status: Acute Assessment and Plan: Present on admission with leukocytosis, tachycardia and lactic acidosis. Abx started for PNA. UA not consistent with UTI. BCx NGTD. Did develop septic shock on the evening of admission requiring central line placement and started on Levophed. Able to be titrated off 05/11. Follow closely. (4) Encephalopathy: Code(s): G93.40 - Encephalopathy, unspecified Status: Acute Assessment and Plan: Patient with acute on chronic encephalopathy. Acute process related to above. 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 Baseline nonverbal (5) COPD (chronic obstructive pulmonary disease): Code(s): J44.9 - Chronic obstructive pulmonary disease, unspecified Status: Acute Assessment and Plan: Patient has hx of COPD but no significant smoking hx per family. No wheezing. Follow (6) Anemia: Code(s): D64.9 - Anemia, unspecified Status: Acute Assessment and Plan: Hgb 11.8 on admission. Hgb dropped to 7 range but now down to 6.4 11/ morning (7.7 by ABG). Iron studies related to anemia of chronic disease with normal ferritin and very low TIBC. No evidence of rectal bleeding. PRBC x 1U ordered. Repeat Hgb 8.6 this morning. Follow for stability. Continue Protonix. (7) Dysphagia: Code(s): R13.10 - Dysphagia, unspecified Status: Acute Assessment and Plan: with G-tube. Nurse at facility felt patient is still aspirating secretions and may be having reflux causing the chronic nausea and aspiration. Explained to family that this may be a chronic issue causing these episodes of respiratory failure. TF resumed and patient tolerating. May need Reglan if further concerns. Consider scopolamine patch. (8) Hypertension: Code(s): I10 - Essential (primary) hypertension Status: Inactive Assessment and Plan: BP reviewed on 05/18 BP rising and will restart Diltiazem . . (9) Person under investigation for COVID-19: Code(s): Z20.828 - Contact with and (suspected) exposure to other viral communicable diseases Status: Acute Assessment and Plan: Tested for COVID here on 05/09 and was negative. (10) DVT prophylaxis: Code(s): Z29.9 - Encounter for prophylactic measures, unspecified Status: Acute Assessment and Plan: Lovenox Subjective Date/time seen: 05/18/20 17:34 Interval history: Date of service 05/18 60yo male with HTN, hydrocephalus and dementia here for acute respiratory failure. . Not on sedation. Tolerating TF. Extubated 05/17 , doing well on RA today Exa
[2020-05-18] MEDS: dilTIAZem HCL 30 MG TABLET FEED TUBE ×2 (18:20→23:30)
[2020-05-19] VITALS (15 sets, daily range): BP systolic 133–158; BP diastolic 73–88; PULSE 103–116; RESP 18–26; TEMP 36.2–37.4; O2SAT 91–98
[2020-05-19] MEDS: LACTATED RINGERS 1,000 ML 30 ML IV CONT (03:01)
[2020-05-19] MEDS: IPRATROPIUM BR 0.02% INH SOLN 0.5 MG/2.5 ML VIAL INHALATION ×4 (03:15→21:30)
[2020-05-19] MEDS: LEVALBUTEROL NEB 1.25 MG/3 ML 0.63 MG INHALATION ×4 (03:16→21:30)
[2020-05-19] MEDS: CENTRAL LINE FLUSH 20 ML IV PUSH (04:19)
[2020-05-19 04:30] LABS: Basophils Percent Auto 0.7 % (0.2-1.2); Eosinophils Absolute Auto 0.4 K/mm3 (0-0.3); Eosinophils Percent Auto 6.2 % (0-4.4); Hematocrit 28.6 % (42.0-52.0); Hemoglobin 8.9 g/dL (14.0-18.0); Immature Granulocyte Absolute 0.02 K/mm3 (0.00-0.031); Immature Granulocyte Percent A 0.3 % (0-0.5); Lymphocytes Absolute Auto 1.16 K/mm3 (0.9-3.2); Lymphocytes Percent Auto 18.9 % (18.3-44.2); Mean Corpuscular HGB Conc 31.1 g/dl (32-36); Mean Corpuscular Hemoglobin 24.7 pg (26-34); Mean Corpuscular Volume 79.4 fl (80-100); Mean Platelet Volume 9.2 fl (7.4-10.4); Monocytes Absolute Auto 0.6 K/mm3 (0.1-0.6); Monocytes Percent Auto 9.1 % (2.6-8.5); Neutrophils Percent Auto 64.8 % (45.5-73.1); Platelet Count Result 383 k/mm3 (150-375); Red Cell Distribution Width 17.4 % (11.5-14.5); White Blood Count 6.2 K/mm3 (4.5-10.0)
[2020-05-19 04:47] LABS: Anion Gap 3 mmol/L (8-16); Blood Urea Nitrogen 7 mg/dL (9-20); Calcium 8.8 mg/dL (8.4-10.2); Carbon Dioxide 33 mmol/L (22-30); Chloride 97 mmol/L (98-107); Estimated CRCL calculation 113 ml/min; Estimated Glomerular Filt Rate > 60; Glucose 105 mg/dL (75-110); Potassium 3.8 mmol/L (3.4-5.0); Sodium 133 mmol/L (137-145)
[2020-05-19] MEDS: METOCLOPRAMIDE HCL INJ 10 MG/2 ML VIAL 5 MG IV PUSH ×4 (05:49→23:37)
[2020-05-19] MEDS: dilTIAZem HCL 30 MG TABLET FEED TUBE ×4 (05:50→23:36)
[2020-05-19] MEDS: CENTRAL LINE FLUSH 10 ML IV PUSH ×3 (05:50→20:12)
[2020-05-19] MEDS: PANTOPRAZOLE SODIUM IV 40 MG VIAL IV PUSH (08:58)
[2020-05-19] MEDS: busPIRone HCL 10 MG TABLET FEED TUBE ×3 (08:59→17:00)
[2020-05-19] MEDS: FOLIC ACID 1 MG TABLET FEED TUBE (08:59)
[2020-05-19] MEDS: TOLNAFTATE 1% POWDER 45 GM BTL 1 APPLIC TOPICAL ×2 (08:59→20:11)
[2020-05-19] MEDS: ENOXAPARIN 40 MG/0.4 ML SYRINGE SUB-Q (08:59)
[2020-05-19] MEDS: DORNASE ALFA INH SOLN 1 MG/ML 2.5 ML AMP 2.5 MG INHALATION ×2 (09:19→21:30)
--- NOTE | 2020-05-19 17:47 | PM.IMPN ---
Progress Note: A&P Assessment and Plan (1) Acute respiratory failure with hypoxemia: Code(s): J96.01 - Acute respiratory failure with hypoxia Status: Acute Assessment and Plan: Patient presents with acute onset respiratory failure on 05/09. CTA chest on admission showing innumerable diffuse small centrilobular nodules and small regions of patchy consolidation consistent with widespread pneumonia including atypical fungal or mycobacterial; no PE. Patient intubated in the ED. Extubated today 05/17 CXR reviewed 05/17 showing decrease in the bibasilar airspace disease. Continue broad spectrum abx, neb treatments. Vanc stopped (2) Pneumonia: Code(s): J18.9 - Pneumonia, unspecified organism Status: Acute Assessment and Plan: CTA chest 05/09 showing no PE but does show innumerable diffuse small centrilobular nodules and small regions of patchy consolidation consistent with widespread pneumonia including atypical fungal or mycobacterial. BCx NGTD. Sputum Cx negative. Echo normal. WBC remains normal. No fevers. Continue Cefepime, Azithro Day 10 05/18 and d/jorge. Stopped Vanc also (3) Septic shock: Code(s): A41.9 - Sepsis, unspecified organism; R65.21 - Severe sepsis with septic shock Status: Acute Assessment and Plan: Present on admission with leukocytosis, tachycardia and lactic acidosis. Abx started for PNA. UA not consistent with UTI. BCx NGTD. Did develop septic shock on the evening of admission requiring central line placement and started on Levophed. Able to be titrated off 05/11. Follow closely. (4) Encephalopathy: Code(s): G93.40 - Encephalopathy, unspecified Status: Acute Assessment and Plan: Patient with acute on chronic encephalopathy. Acute process related to above. 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 Baseline nonverbal (5) COPD (chronic obstructive pulmonary disease): Code(s): J44.9 - Chronic obstructive pulmonary disease, unspecified Status: Acute Assessment and Plan: Patient has hx of COPD but no significant smoking hx per family. No wheezing. Follow (6) Anemia: Code(s): D64.9 - Anemia, unspecified Status: Acute Assessment and Plan: Hgb 11.8 on admission. Hgb dropped to 7 range but now down to 6.4 11/ morning (7.7 by ABG). Iron studies related to anemia of chronic disease with normal ferritin and very low TIBC. No evidence of rectal bleeding. PRBC x 1U ordered. Repeat Hgb 8.9 this morning. Follow for stability. Continue Protonix. (7) Dysphagia: Code(s): R13.10 - Dysphagia, unspecified Status: Acute Assessment and Plan: with G-tube. Nurse at facility felt patient is still aspirating secretions and may be having reflux causing the chronic nausea and aspiration. Explained to family that this may be a chronic issue causing these episodes of respiratory failure. TF resumed and patient tolerating. May need Reglan if further concerns. Consider scopolamine patch. (8) Hypertension: Code(s): I10 - Essential (primary) hypertension Status: Inactive Assessment and Plan: BP reviewed on 05/19 BP better after restarting Diltiazem 05/18 . . (9) Person under investigation for COVID-19: Code(s): Z20.828 - Contact with and (suspected) exposure to other viral communicable diseases Status: Acute Assessment and Plan: Tested for COVID here on 05/09 and was negative. (10) DVT prophylaxis: Code(s): Z29.9 - Encounter for prophylactic measures, unspecified Status: Acute Assessment and Plan: Lovenox Subjective Date/time seen: 05/19/20 17:47 Interval history: Date of service 05/19 60yo male with HTN, hydrocephalus and dementia here for acute respiratory failure. . Not on sedation. Tolerating TF. Extubated 05/17 , still doing wel
--- NOTE | 2020-05-19 18:09 | PC.NURSE ---
This patient, King Sullivan, was transferred to [facility] on 05/19/20 at 1800. Personal belongings sent with patient. Report given to Jess CRAWFORD. Appropriate documentation sent with patient.
--- NOTE | 2020-05-19 18:26 | PC.NURSE ---
pt transferred in to room 250 via bed, report obtained by RN from IMU, pt resting comfortably, TF and IVFs infusing, positioned for comfort
[2020-05-20] VITALS (8 sets, daily range): BP systolic 120–157; BP diastolic 75–88; PULSE 94–108; RESP 16–24; TEMP 36.7–36.9; O2SAT 95–98
[2020-05-20] MEDS: IPRATROPIUM BR 0.02% INH SOLN 0.5 MG/2.5 ML VIAL INHALATION ×4 (03:14→20:10)
[2020-05-20] MEDS: LEVALBUTEROL NEB 1.25 MG/3 ML 0.63 MG INHALATION ×4 (03:14→20:10)
[2020-05-20] MEDS: dilTIAZem HCL 30 MG TABLET FEED TUBE (05:07)
[2020-05-20] MEDS: METOCLOPRAMIDE HCL INJ 10 MG/2 ML VIAL 5 MG IV PUSH ×4 (05:07→23:59)
[2020-05-20] MEDS: CENTRAL LINE FLUSH 10 ML IV PUSH ×3 (05:08→21:26)
[2020-05-20] MEDS: DORNASE ALFA INH SOLN 1 MG/ML 2.5 ML AMP 2.5 MG INHALATION (07:26)
[2020-05-20] MEDS: busPIRone HCL 10 MG TABLET FEED TUBE ×3 (09:29→17:32)
[2020-05-20] MEDS: FOLIC ACID 1 MG TABLET FEED TUBE (09:29)
[2020-05-20] MEDS: PANTOPRAZOLE SODIUM IV 40 MG VIAL IV PUSH (09:29)
[2020-05-20] MEDS: TOLNAFTATE 1% POWDER 45 GM BTL 1 APPLIC TOPICAL ×2 (09:29→21:27)
[2020-05-20] MEDS: ENOXAPARIN 40 MG/0.4 ML SYRINGE SUB-Q (09:44)
[2020-05-20] MEDS: dilTIAZem HCL 60 MG TABLET FEED TUBE ×3 (13:20→23:59)
--- NOTE | 2020-05-20 15:34 | PM.IMPN ---
Progress Note: A&P Assessment and Plan (1) Acute respiratory failure with hypoxemia: Code(s): J96.01 - Acute respiratory failure with hypoxia Status: Acute Assessment and Plan: Patient presents with acute onset respiratory failure on 05/09. CTA chest on admission showing innumerable diffuse small centrilobular nodules and small regions of patchy consolidation consistent with widespread pneumonia including atypical fungal or mycobacterial; no PE. Patient intubated in the ED. Extubated today 05/17 CXR reviewed 05/17 showing decrease in the bibasilar airspace disease. Continue neb treatments. Antibiotics stopped 05/18 (2) Pneumonia: Code(s): J18.9 - Pneumonia, unspecified organism Status: Acute Assessment and Plan: CTA chest 05/09 showing no PE but does show innumerable diffuse small centrilobular nodules and small regions of patchy consolidation consistent with widespread pneumonia including atypical fungal or mycobacterial. BCx NGTD. Sputum Cx negative. Echo normal. WBC remains normal. No fevers. Continue Cefepime, Azithro Day 10 05/18 and d/jorge. Stopped Vanc also (3) Septic shock: Code(s): A41.9 - Sepsis, unspecified organism; R65.21 - Severe sepsis with septic shock Status: Acute Assessment and Plan: Present on admission with leukocytosis, tachycardia and lactic acidosis. Abx started for PNA. UA not consistent with UTI. BCx NGTD. Did develop septic shock on the evening of admission requiring central line placement and started on Levophed. Able to be titrated off 05/11. Follow closely. Bp rebounded and diltiazem restarted (4) Encephalopathy: Code(s): G93.40 - Encephalopathy, unspecified Status: Acute Assessment and Plan: Patient with acute on chronic encephalopathy. Acute process related to above. 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 Baseline nonverbal (5) COPD (chronic obstructive pulmonary disease): Code(s): J44.9 - Chronic obstructive pulmonary disease, unspecified Status: Acute Assessment and Plan: Patient has hx of COPD but no significant smoking hx per family. No wheezing. Follow (6) Anemia: Code(s): D64.9 - Anemia, unspecified Status: Acute Assessment and Plan: Hgb 11.8 on admission. Hgb dropped to 7 range but now down to 6.4 11 morning (7.7 by ABG). Iron studies related to anemia of chronic disease with normal ferritin and very low TIBC. No evidence of rectal bleeding. PRBC x 1U ordered. Repeat Hgb 8.9 05/19 . Follow for stability. Continue Protonix. (7) Dysphagia: Code(s): R13.10 - Dysphagia, unspecified Status: Acute Assessment and Plan: with G-tube. Nurse at facility felt patient is still aspirating secretions and may be having reflux causing the chronic nausea and aspiration. Dr Leigh Explained to family that this may be a chronic issue causing these episodes of respiratory failure. TF resumed and patient tolerating. . (8) Hypertension: Code(s): I10 - Essential (primary) hypertension Status: Inactive Assessment and Plan: BP reviewed on 05/20 BP better after restarting Diltiazem 05/18 and will increase to 60 q6 per peg . . (9) Person under investigation for COVID-19: Code(s): Z20.828 - Contact with and (suspected) exposure to other viral communicable diseases Status: Acute Assessment and Plan: Tested for COVID here on 05/09 and was negative. (10) DVT prophylaxis: Code(s): Z29.9 - Encounter for prophylactic measures, unspecified Status: Acute Assessment and Plan: Lovenox Subjective Date/time seen: 05/20/20 15:34 Interval history: Date of service 05/20 60yo male with HTN, hydrocephalus and dementia here for acute respiratory failure. . Not on sedation. Tolerating TF. Extubated 05/17 , still leanne
[2020-05-21] VITALS (8 sets, daily range): BP systolic 116–141; BP diastolic 76–81; PULSE 77–110; RESP 18–32; TEMP 36.8–36.9; O2SAT 92–99
[2020-05-21] MEDS: IPRATROPIUM BR 0.02% INH SOLN 0.5 MG/2.5 ML VIAL INHALATION ×4 (01:36→20:14)
[2020-05-21] MEDS: LEVALBUTEROL NEB 1.25 MG/3 ML 0.63 MG INHALATION ×4 (01:36→20:13)
[2020-05-21] MEDS: METOCLOPRAMIDE HCL INJ 10 MG/2 ML VIAL 5 MG IV PUSH ×3 (06:42→17:07)
[2020-05-21] MEDS: CENTRAL LINE FLUSH 10 ML IV PUSH ×3 (06:42→20:29)
[2020-05-21] MEDS: dilTIAZem HCL 60 MG TABLET FEED TUBE ×3 (06:42→17:08)
[2020-05-21 08:12] LABS: Estimated CRCL calculation 108 ml/min; Estimated Glomerular Filt Rate > 60
[2020-05-21] MEDS: busPIRone HCL 10 MG TABLET FEED TUBE ×3 (10:07→17:07)
[2020-05-21] MEDS: ENOXAPARIN 40 MG/0.4 ML SYRINGE SUB-Q (10:07)
[2020-05-21] MEDS: PANTOPRAZOLE SODIUM IV 40 MG VIAL IV PUSH (10:08)
[2020-05-21] MEDS: TOLNAFTATE 1% POWDER 45 GM BTL 1 APPLIC TOPICAL ×2 (10:08→20:29)
[2020-05-21] MEDS: FOLIC ACID 1 MG TABLET FEED TUBE (10:08)
--- NOTE | 2020-05-21 14:14 | PCDIET ---
spoke with nursing today regarding tube feedings. MD orders for formula change to standard tube feeding of Jevity 1.2 at 50 ml/hr advancing by 10 ml/hr q 4 hours to goal rate of 70 ml/hr. RD will reassess tomorrow.
--- NOTE | 2020-05-21 15:08 | PM.IMPN ---
Progress Note: A&P Assessment and Plan (1) Acute respiratory failure with hypoxemia: Code(s): J96.01 - Acute respiratory failure with hypoxia Status: Acute Assessment and Plan: Patient presents with acute onset respiratory failure on 05/09. CTA chest on admission showing innumerable diffuse small centrilobular nodules and small regions of patchy consolidation consistent with widespread pneumonia including atypical fungal or mycobacterial; no PE. Patient intubated in the ED. Extubated today 05/17 CXR reviewed 05/17 showing decrease in the bibasilar airspace disease. Continue neb treatments. Antibiotics stopped 05/18 (2) Pneumonia: Code(s): J18.9 - Pneumonia, unspecified organism Status: Acute Assessment and Plan: CTA chest 05/09 showing no PE but does show innumerable diffuse small centrilobular nodules and small regions of patchy consolidation consistent with widespread pneumonia including atypical fungal or mycobacterial. BCx NGTD. Sputum Cx negative. Echo normal. WBC remains normal. No fevers. Cefepime, Azithro Day 10 05/18 and d/jorge. Stopped Vanc also (3) Septic shock: Code(s): A41.9 - Sepsis, unspecified organism; R65.21 - Severe sepsis with septic shock Status: Acute Assessment and Plan: Present on admission with leukocytosis, tachycardia and lactic acidosis. Abx started for PNA. UA not consistent with UTI. BCx NGTD. Did develop septic shock on the evening of admission requiring central line placement and started on Levophed. Able to be titrated off 05/11. Follow closely. Bp rebounded and diltiazem restarted (4) Encephalopathy: Code(s): G93.40 - Encephalopathy, unspecified Status: Acute Assessment and Plan: Patient with acute on chronic encephalopathy. Acute process related to above. 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 Baseline nonverbal (5) COPD (chronic obstructive pulmonary disease): Code(s): J44.9 - Chronic obstructive pulmonary disease, unspecified Status: Acute Assessment and Plan: Patient has hx of COPD but no significant smoking hx per family. No wheezing. Follow (6) Anemia: Code(s): D64.9 - Anemia, unspecified Status: Acute Assessment and Plan: Hgb 11.8 on admission. Hgb dropped to 7 range but now down to 6.4 11/13 morning (7.7 by ABG). Iron studies related to anemia of chronic disease with normal ferritin and very low TIBC. No evidence of rectal bleeding. PRBC x 1U ordered. Repeat Hgb 8.9 05/19 . Follow for stability. Continue Protonix. (7) Dysphagia: Code(s): R13.10 - Dysphagia, unspecified Status: Acute Assessment and Plan: with G-tube. Nurse at facility felt patient is still aspirating secretions and may be having reflux causing the chronic nausea and aspiration. Dr Leigh Explained to family that this may be a chronic issue causing these episodes of respiratory failure. TF resumed and patient tolerating. . (8) Hypertension: Code(s): I10 - Essential (primary) hypertension Status: Inactive Assessment and Plan: BP reviewed on 05/21 BP better after restarting Diltiazem 05/18 and will increase to 60 q6 per peg 05/20. . (9) Person under investigation for COVID-19: Code(s): Z20.828 - Contact with and (suspected) exposure to other viral communicable diseases Status: Acute Assessment and Plan: Tested for COVID here on 05/09 and was negative. (10) DVT prophylaxis: Code(s): Z29.9 - Encounter for prophylactic measures, unspecified Status: Acute Assessment and Plan: Lovenox Subjective Date/time seen: 05/21/20 15:08 Interval history: Date of service 05/21 60yo male with HTN, hydrocephalus and dementia here for acute respiratory failure. . Not on sedation. Tolerating TF. Extubated 05/17 , still doing w
[2020-05-21 16:54] LABS: SARS-CoV-2 RNA PCR Negative
[2020-05-21] MEDS: DORNASE ALFA INH SOLN 1 MG/ML 2.5 ML AMP 2.5 MG INHALATION (20:14)
[2020-05-22] VITALS (7 sets, daily range): BP systolic 121–151; BP diastolic 73–85; PULSE 93–120; RESP 16–28; TEMP 36.7–37; O2SAT 95–99
[2020-05-22] MEDS: IPRATROPIUM BR 0.02% INH SOLN 0.5 MG/2.5 ML VIAL INHALATION ×3 (01:55→14:28)
[2020-05-22] MEDS: METOCLOPRAMIDE HCL INJ 10 MG/2 ML VIAL 5 MG IV PUSH ×3 (05:51→12:48)
[2020-05-22] MEDS: dilTIAZem HCL 60 MG TABLET FEED TUBE ×3 (05:52→12:48)
[2020-05-22] MEDS: LEVALBUTEROL NEB 1.25 MG/3 ML 0.63 MG INHALATION ×2 (07:55→14:28)
[2020-05-22] MEDS: DORNASE ALFA INH SOLN 1 MG/ML 2.5 ML AMP 2.5 MG INHALATION (07:56)
[2020-05-22] MEDS: busPIRone HCL 10 MG TABLET FEED TUBE ×2 (09:37→12:48)
[2020-05-22] MEDS: FOLIC ACID 1 MG TABLET FEED TUBE (09:37)
[2020-05-22] MEDS: PANTOPRAZOLE SODIUM IV 40 MG VIAL IV PUSH (09:37)
[2020-05-22] MEDS: ENOXAPARIN 40 MG/0.4 ML SYRINGE SUB-Q (09:37)
[2020-05-22] MEDS: TOLNAFTATE 1% POWDER 45 GM BTL 1 APPLIC TOPICAL (09:38)
[2020-05-22] MEDS: CENTRAL LINE FLUSH 10 ML IV PUSH ×2 (09:38→14:34)
--- NOTE | 2020-05-22 11:00 | PCNFU ---
Nutrition Follow-Up Complete: Inadequate infusion of enteral nutrition related to respiratory failure as evidenced by NPO. Goal: Patient to meet estimated nutritional needs. Patient has met nutrition goal. No new goal. Pt current nutrition is Jevity 1.2 at 60 ml/hr. Nutrition recommendation: Agree Last recorded weight is 46.6 kg, down from 49.8kg. Bowel Motility:+BM reported 05/22 Labs Reviewed:Cr 0.4 Meds Noted: Reglan,Lovenox,Cardizem,Folic Acid Additional Notes: Nutrition follow up. Patient current with gtube feedings of Jevity 1.2 at 60/hr and tolerating with plans to advance to goal rate of 70 ml/hr. Residual of 90 ml today. Nursing states to no nutritional concerns. Agree with diet orders. Monitoring: Follow up every Thursday/Thursday.
--- NOTE | 2020-05-22 14:08 | PM.DS ---
DS: Admitting Diagnosis Admitting Diagnosis Admitting Diagnosis: Acute Respiratory Failure DS: Discharge Diagnosis Discharge Diagnosis (1) Acute respiratory failure with hypoxemia: Code(s): J96.01 - Acute respiratory failure with hypoxia Status: Acute Assessment and Plan: Patient presents with acute onset respiratory failure on 05/09. CTA chest on admission showing innumerable diffuse small centrilobular nodules and small regions of patchy consolidation consistent with widespread pneumonia including atypical fungal or mycobacterial; no PE. Patient intubated in the ED. Treated with antibiotics and nebulizer reatments. Able to be extubated on 05/17. CXR reviewed 05/17 showing decrease in the bibasilar airspace disease. Antibiotics stopped 05/18. Weaned to room air. (2) Pneumonia: Code(s): J18.9 - Pneumonia, unspecified organism Status: Acute Assessment and Plan: CTA chest 05/09 showing no PE but does show innumerable diffuse small centrilobular nodules and small regions of patchy consolidation consistent with widespread pneumonia including atypical fungal or mycobacterial. BCx and Sputum Cx negative. Echo normal. Stool for CDiff negative. COVID negative on 05/09 amd again on 05/20. WBC 33K on admission but normalized quickly and remained normal. No fevers. Completed a course of Cefepime, Vanco and Azithro. (3) Septic shock: Code(s): A41.9 - Sepsis, unspecified organism; R65.21 - Severe sepsis with septic shock Status: Acute Assessment and Plan: Present on admission with leukocytosis, tachycardia and lactic acidosis. Abx started for PNA. UA not consistent with UTI. BCx Negative. Did develop septic shock on the evening of admission requiring central line placement and started on Levophed. Able to be titrated off Levophed 05/11. BP rebounded and diltiazem restarted. (4) Encephalopathy: Code(s): G93.40 - Encephalopathy, unspecified Status: Acute Assessment and Plan: Patient with acute on chronic encephalopathy. Acute process related to above. 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 His baseline is nonverbal. (5) COPD (chronic obstructive pulmonary disease): Code(s): J44.9 - Chronic obstructive pulmonary disease, unspecified Status: Acute Assessment and Plan: Patient has hx of COPD but no significant smoking hx per family. (6) Anemia: Code(s): D64.9 - Anemia, unspecified Status: Acute Assessment and Plan: Hgb 11.8 on admission but dropped to 7 range the next day and then drifted to 6.4 on 05/12 morning (7.7 by ABG). Iron studies related to anemia of chronic disease with normal ferritin and very low TIBC. No evidence of rectal bleeding. PRBC x 1U ordered. Repeat Hgb 8.6 and remained stable in the 8 range the remainder of his hospitalization. We continued Protonix. (7) Dysphagia: Code(s): R13.10 - Dysphagia, unspecified Status: Acute Assessment and Plan: with G-tube. Nurse at facility felt patient is still aspirating secretions and may be having reflux causing the chronic nausea and aspiration. This was explained to family that this may be a chronic issue causing these episodes of respiratory failure. TF resumed and patient tolerating. (8) Hypertension: Code(s): I10 - Essential (primary) hypertension Status: Inactive Assessment and Plan: BP monitored closely. BP better after restarting Diltiazem 05/18. (9) Person under investigation for COVID-19: Code(s): Z20.828 - Contact with and (suspected) exposure to other viral communicable diseases Status: Acute Assessment and Plan: Tested for COVID here on 05/09 and again 05/20; both times, he was negative. DS: Summary Hospital Course Reason for hospitalization: 60yo male with HTN, hydrocephalus and dementia here for acute
== END 2020-05-22 17:50 | DRG 870 ==
LOC: ANHED 07:17 → ANHICU 07:51 → ANHIMU 05-18 15:31 → ANH2MED 05-19 18:13
PROVIDERS: Family Medicine; General Practice; Internal Medicine; Admitting Provider Internal Medicine; Emergency Provider Emergency Medicine; PCP Internal Medicine; Visit Provider Internal Medicine
DX: A41.9 Sepsis, unspecified organism (principal); J96.01 Acute respiratory failure with hypoxia; J18.9 Pneumonia, unspecified organism; R65.21 Severe sepsis with septic shock; G93.49 Other encephalopathy; N17.9 Acute kidney failure, unspecified; G91.9 Hydrocephalus, unspecified; J44.0 Chronic obstructive pulmonary disease with (acute) lower respiratory infection; Z20.828 Contact with and (suspected) exposure to other viral communicable diseases; F03.90 Unspecified dementia, unspecified severity, without behavioral disturbance, psychotic disturbance, mood disturbance, and anxiety; I10 Essential (primary) hypertension; D64.9 Anemia, unspecified; R13.10 Dysphagia, unspecified; M79.89 Other specified soft tissue disorders; Z93.1 Gastrostomy status; Z79.899 Other long term (current) drug therapy
CPT/HCPCS: 31500; 36415; 36430; 36600; 70450; 71045; 71275; 74018; 80048; 80053; 80202; 81001; 82140; 82375; 82565; 82607; 82728; 82746; 82805; 82948; 83050; 83540; 83550; 83605; 83735; 83880; 84100; 84439; 84443; 84480; 84484; 85014; 85018; 85025; 85027; 85610; 85730; 86140; 86850; 86900; 86901; 86923; 87040; 87070; 87205; 87324; 87635; 87804; 93005; 93306; 93971; 94003; 94640; 96365; 96375; 97162; 97166; 99291; A9270; C1751; C9113; C9803; J0330; J0456; J0692; J0696; J1650; J1940; J2060; J2250; J2405; J2704; J2765; J3010; J3370; J3475; J7030; J7040; J7050; J7120; P9016; Q9967; U0003

== ENCOUNTER 2020-05-24 01:18 | Inpatient (IN) | payer MEDICARE, MEDICAID, SELFPAY ==
[2020-05-24] VITALS (54 sets, daily range): BP systolic 74–172; BP diastolic 44–83; PULSE 51–158; RESP 16–54; TEMP 36.4–40.1; O2SAT 84–100; BMI 18.3
--- NOTE | ~2020-05-24 | CT_ITS ---
EXAMINATION: CT brain wo con EXAM DATE: 05/24/2020 02:26 INDICATION: Altered mental status. TECHNIQUE: Spiral CT of the head was performed without contrast. Axial, coronal and sagittal images were reviewed. The dose-length product (DLP) for this examination was 529.67 mGy-cm. The exposure w as tailored according to patient size, and iterative reconstruction (ASIR) was used as additional dos e reduction technique. Comparison is made to prior examination from 05/09/2020. FINDINGS: There is no acute intraparenchymal hemorrhage. No evidence of intraparenchymal brain mass lesion. No evidence of acute infarction. Please note that initial head CT has limited sensitivity f or small or acute infarctions. Bifrontal and bitemporal encephalomalacia. There is mild periventri cular and subcortical hypodensity, nonspecific but probably related to small vessel ischemic disease. Again there is severely dilated lateral, 3rd, 4th ventricles. There is ventricular prominence out of proportion to sulci, could indicate normal pressure hydrocephalus (clinical triad ataxia/gait dist urbance, dementia, urinary incontinence). There is intracranial carotid arteriosclerosis. There ar e no extra-axial collections. There is no mass effect or midline shift. The orbits are unremarkable . Soft tissue is unremarkable. The visualized sinuses and mastoid air cells are well aerated. The re is no interval change. IMPRESSION: 1. No acute intracranial findings or interval change. 2. Severely dilated ventricular system out of proportion to sulci, NPH versus central atrophy. 3. Bifrontal and bitemporal encephalomalacia. Posttraumatic? Reviewed, dictated and finalized at location A. ETING PRODUCTION MANAGER
--- NOTE | ~2020-05-24 | XR_ITS ---
EXAMINATION: XR chest 1V portable INDICATION: Shortness of breath TECHNIQUE: Portable AP chest at 1315 hours COMPARISON: 06/01/2020 FINDINGS: Patchy bilateral opacities persist but have improved. There is no pleural effusion or pneum othorax. The cardiomediastinal silhouette is stable. IMPRESSION: 1. Persistent but decreased bilateral opacities, consistent with pneumonia versus atelectasis versus pulmonary edema. Reviewed, dictated and finalized at location A. H CRYSTAL EDGE GRINDER IMPRESSION: 1. Persistent but decreased bilateral opacities, consistent with pneumonia vers us atelectasis versus pulmonary edema.
--- NOTE | ~2020-05-24 | XR_ITS ---
EXAMINATION: XR chest 1V portable DATE: 05/30/2020 06:07 INDICATION: Aspiration pneumonia. Acute respiratory failure. TECHNIQUE: frontal view of the chest was obtained. COMPARISON: Chest radiograph dated 05/29/2020 FINDINGS: Endotracheal tube tip 2.5 cm above the ashleigh. Nasogastric tube with proximal side-port in the body o f the stomach and with distal tip collimated off the study. Right internal jugular central venous cat heter with distal tip in the caudal superior vena cava. Persistent mild patchy airspace opacities in the right mid lung zone and minimal residual opacities a t the lung bases. No pulmonary edema, pleural effusion or pneumothorax. The cardiomediastinal silhoue tte is normal. IMPRESSION: 1. No significant interval change in mild bilateral lung disease consistent with pneumonia. Reviewed, dictated and finalized at location A. OUND FILLER IMPRESSION: 1. No significant interval change in mild bilateral lung disease consistent wit h pneumonia.
--- NOTE | ~2020-05-24 | XR_ITS ---
EXAMINATION: XR chest 1V portable DATE: 06/01/2020 23:07 INDICATION: Aspiration TECHNIQUE: frontal view of the chest was obtained. COMPARISON: Chest radiograph dated 06/01/2020 FINDINGS: Slight increase in primarily reticulonodular opacities throughout the right lung and in the left uppe r lung zone. No pleural effusion or pneumothorax. The cardiomediastinal silhouette is normal. IMPRESSION: 1. Slight increase in bilateral opacities which could represent pneumonia, pulmonary edema, atelectas is or some combination thereof. Reviewed, dictated and finalized at location A. AL APPLIANCE MECHANIC IMPRESSION: 1. Slight increase in bilateral opacities which could represent pneumonia, pulm onary edema, atelectasis or some combination thereof.
--- NOTE | ~2020-05-24 | XR_ITS ---
EXAMINATION: XR chest 1V portable DATE: 06/01/2020 06:15 INDICATION: Aspiration pneumonia. Acute respiratory failure. TECHNIQUE: frontal view of the chest was obtained. COMPARISON: Chest radiograph dated 05/31/2020 and 05/26/2020 FINDINGS: Right internal jugular central venous catheter with distal tip in the midsuperior vena cava. No signi ficant interval change in mild opacities in the right mid and upper lung zones. No new airspace opaci ties, pleural effusion or pneumothorax. The cardiomediastinal silhouette is normal. IMPRESSION: 1. No significant interval change in mild residual opacity right mid and upper lung zones consistent with gradually improving pneumonia. Reviewed, dictated and finalized at location A. PRESS OPERATOR
--- NOTE | ~2020-05-24 | XR_ITS ---
EXAMINATION: XR chest port-a-cath/central EXAM DATE: 05/24/2020 06:20 INDICATION: rt ij central line . TECHNIQUE: Portable AP frontal chest x-ray was obtained. Comparison is made to prior examination from earlier same date. FINDINGS: Interval insertion of right-sided IJ venous line. The endotracheal tube and nasogastric tu be are both in position. Moderate amount of right-sided and smaller amount of left-sided acute airspace disease, most likely p neumonia but clinical correlation. There are no sizable pleural effusions. There is no pneumothora x suspected. Cardiomediastinal silhouette is normal. The bones and soft tissues are unremarkable. There is no significant interval change compared to prior exam. IMPRESSION: 1. Line and tube(s) in position. 2. Moderate amount of right-sided predominant acute airspace disease. 3. No postprocedure pneumothorax. Reviewed, dictated and finalized at location A. OGRAPHIC ENLARGER OPERATOR
--- NOTE | ~2020-05-24 | XR_ITS ---
EXAMINATION: XR chest 1V portable EXAM DATE: 05/27/2020 06:38 INDICATION: Respiratory failure. TECHNIQUE: Portable AP frontal chest x-ray was obtained. Comparison is made to prior examination from 05/26/2020. FINDINGS: Right IJ venous line in position. The endotracheal tube and nasogastric tube are both in p osition. Moderate amount of right-sided acute airspace disease, smaller amount on the left, most likely pneumo carolyn. There is no pneumothorax suspected. There are no sizable pleural effusions. Cardiomediastin al silhouette is normal. The bones and soft tissues are unremarkable. There is no significant interval change. IMPRESSION: 1. Line and tube(s) in position. 2. Persistent moderate right-sided, smaller left-sided acute airspace disease. Reviewed, dictated and finalized at location A. NG CLERK
--- NOTE | ~2020-05-24 | XR_ITS ---
EXAMINATION: XR chest 1V portable DATE: 05/28/2020 06:01 INDICATION: Respiratory failure TECHNIQUE: frontal view of the chest was obtained. COMPARISON: Chest radiograph dated 05/27/2020 FINDINGS: Endotracheal tube tip 2.7 cm above the ashleigh. Nasogastric tube with proximal side-port in the proxim al stomach and with distal tip collimated off the study. Right internal jugular central venous cathet er with distal tip at the midsuperior vena cava. No significant interval change in mild scattered bilateral opacities. No pleural effusion or pneumoth orax. The cardiomediastinal silhouette is within normal limits accounting for rightward rotation of t he patient. IMPRESSION: 1. Unchanged mild scattered bilateral lung disease which could represent atelectasis and/or pneumoni a. Reviewed, dictated and finalized at location A. US PRESIDENT IMPRESSION: 1. Unchanged mild scattered bilateral lung disease which could represent atele ctasis and/or pneumonia.
--- NOTE | ~2020-05-24 | XR_ITS ---
EXAMINATION: XR chest 1V portable DATE: 05/29/2020 05:12 INDICATION: Respiratory failure TECHNIQUE: frontal view of the chest was obtained. COMPARISON: Chest radiograph dated 05/28/2020 FINDINGS: Endotracheal tube tip 2.1 cm above the ashleigh. Nasogastric tube proximal side port in the body of the stomach with distal tip collimated beyond the inferior margin of the [id number]. Right internal j ugular central venous catheter with distal tip in the midsuperior vena cava. Patient is rotated towards the right. Interval improvement in mild bilateral airspace opacities with residual opacities most prominent in the right upper lung zone. No pneumothorax or pleural effusion. Heart size is normal. IMPRESSION: 1. Improvement in bilateral airspace disease consistent with pneumonia most prominent in the right up per lung zone and nearly resolved throughout the remainder of the lungs. Reviewed, dictated and finalized at location A. VERY REP IMPRESSION: 1. Improvement in bilateral airspace disease consistent with pneumonia most pro minent in the right upper lung zone and nearly resolved throughout the remainde r of the lungs.
--- NOTE | ~2020-05-24 | XR_ITS ---
XR chest 1V portable 06/16/2020 08:52 Indication: Fever and leukocytosis Procedure: AP portable chest Comparison: Comparison to multiple prior studies sequentially, with oldest reviewed study dated 05/03. Findings: Patchy right-sided airspace disease, consistent with pneumonia. Heart size normal. No pleur al effusion or pneumothorax. No acute osseous abnormality. Impression: 1: Patchy right-sided airspace disease, compatible with pneumonia. Reviewed, dictated and finalized at location A. ITAL EDUCATOR Impression: 1: Patchy right-sided airspace disease, compatible with pneumonia.
--- NOTE | ~2020-05-24 | XR_ITS ---
EXAMINATION: XR G tube evaluation w imaging INDICATION: Enteric tube removal were placed with Murphy catheter. TECHNIQUE: Supine view of the abdomen is obtained. COMPARISON: 05/24/2020 FINDINGS: Contrast injected through Murphy catheter opacifies the stomach. The balloon is inflated in the distal body of the stomach. No free intraperitoneal gas is identified. The bowel gas pattern is n ormal. IMPRESSION: 1. Murphy catheter in the stomach. Reviewed, dictated and finalized at location A. OGRAPHER
--- NOTE | ~2020-05-24 | XR_ITS ---
EXAMINATION: XR chest 1V portable DATE: 05/31/2020 06:32 INDICATION: Aspiration pneumonia. Acute respiratory failure. TECHNIQUE: frontal view of the chest was obtained. COMPARISON: Chest radiograph dated 05/30/2020 FINDINGS: Endotracheal tube tip 2.7 cm above the ashleigh. Right internal jugular central venous catheter with di stal tip in the midsuperior vena cava. Nasogastric tube extends below the left hemidiaphragm with di stal tip collimated off the study. Patient is rotated towards the right. Continued improvement in mild airspace opacities in the right u pper lung zone. No pleural effusion or pneumothorax. The cardiomediastinal silhouette is normal. IMPRESSION: 1. Continued improvement in pneumonia with residual mild opacities in the right upper lung zone. Reviewed, dictated and finalized at location A. NESS DIRECTOR
--- NOTE | ~2020-05-24 | XR_ITS ---
EXAMINATION: XR chest 1V portable EXAM DATE: 05/26/2020 05:51 INDICATION: Respiratory Failure, intubated, HX COPD, HTN. TECHNIQUE: Portable AP frontal chest x-ray was obtained. Comparison is made to prior examination from 05/25/2020. FINDINGS: Right IJ venous line in position. The endotracheal tube and nasogastric tube are both in p osition. Moderate amount of right-sided acute airspace disease, small amount on the left, most likely pneumoni a. There is no pneumothorax suspected. There are no sizable pleural effusions. Cardiomediastinal silhouette is normal. The bones and soft tissues are unremarkable. Moderate right, smaller left acute airspace disease. IMPRESSION: 1. Line and tube(s) in position. 2. Persistent moderate right-sided, smaller left-sided acute airspace disease. Reviewed, dictated and finalized at location A. PREVENTION AUDITOR
--- NOTE | ~2020-05-24 | XR_ITS ---
EXAMINATION: XR abdomen NG/feed tube insert EXAM DATE: 05/24/2020 02:12 INDICATION: Ng placement. TECHNIQUE: Frontal projection(s) of the abdomen for interpretation. Comparison is made to prior exami nation from 05/15/2020. FINDINGS: There is a gastrostomy tube. Feeding tube in position. Nonobstructive bowel gas pattern. T he spinal cord signal intensity and intrinsic morphology is normal. IMPRESSION: Feeding tube in position. Reviewed, dictated and finalized at location A. SUPERVISOR IMPRESSION: Feeding tube in position.
--- NOTE | ~2020-05-24 | XR_ITS ---
EXAMINATION: XR chest ET placement EXAM DATE: 05/24/2020 02:12 INDICATION: post intubation, resp failure. TECHNIQUE: Portable AP frontal chest x-ray was obtained. Comparison is made to prior examination from 05/17/2020. FINDINGS: Endotracheal tube is 1 cm above the ashleigh (please note this was in normal position on a s ubsequent chest x-ray so no recommendation made with this report). There is a nasogastric tube seen w ith tip collimated off the study, but below the left hemidiaphragm. Moderate amount of right-sided and smaller amount of left-sided acute airspace disease, most likely p neumonia but clinical correlation. There are no sizable pleural effusions. There is no pneumothora x suspected. Cardiomediastinal silhouette is normal. The bones and soft tissues are unremarkable. IMPRESSION: 1. Moderate right-sided predominant acute airspace disease unchanged. Reviewed, dictated and finalized at location A. COMMODITY BUYER
--- NOTE | ~2020-05-24 | XR_ITS ---
EXAMINATION: XR chest 1V portable EXAM DATE: 05/25/2020 05:54 INDICATION: Respiratory Failure, intubated, HX COPD, HTN. TECHNIQUE: Portable AP frontal chest x-ray was obtained. Comparison is made to prior examination from 05/24/2020. FINDINGS: Interval insertion of right-sided IJ venous line. The endotracheal tube and nasogastric tu be are both in position. Moderate amount of right-sided acute airspace disease, most likely pneumonia. The left lung is quite lucent compared to recent prior studies, could be from improved airspace disease, but can't exclude a n anteriorly located pneumothorax, although no pleural reflection is identified. There are no sizable pleural effusions. Cardiomediastinal silhouette is normal. The bones and soft tissues are unrema rkable. Compared to prior exams left-sided opacity has significantly decreased. Right lung airspace disease a ppears unchanged. IMPRESSION: 1. Line and tube(s) in position. 2. Decreased left lung opacity, could be resolved airspace disease but difficult to exclude anterior ly located pneumothorax. No pleural reflection specifically identified. 3. Persistent moderate right-sided acute airspace disease. Reviewed, dictated and finalized at location A. ASSEMBLER IMPRESSION: 1. Line and tube(s) in position. 2. Decreased left lung opacity, could be resolved airspace disease but difficu lt to exclude anteriorly located pneumothorax. No pleural reflection specifica lly identified. 3. Persistent moderate right-sided acute airspace disease.
--- NOTE | 2020-05-24 01:14 | ED.SOB ---
HPI - SOB/Dyspnea General Chief Complaint: Shortness of Breath/Dyspnea Stated Complaint: AMS/ high heart rate Source: EMS Mode of arrival: EMS Limitations: altered mental status and clinical condition History of Present Illness HPI Narrative: The patient is a is a 60yo male with chronic encephalopathy and HTN, who returns to the emergency department again from [facility] for evaluation of altered mental status and respiratory distress. Patient intubated May 09, had a prolonged ICU course, discharged 2 days previously back to facility. Patient noted to be hypoxic at the facility this evening, febrile, thus EMS was called and oxygen saturations were noted to be 76% on room air. Patient was tachypneic. Patient with glucose of 107. He was transported to this facility on a nonrebreather with oxygen saturations around 85%. The time of assessment, patient is encephalopathic, febrile, tachycardic, tachypneic and hypoxic. Additional history cannot be obtained. Related Data Home Medications Medication Instructions Recorded Confirmed ipratropium-albuterol 3 ml INHALATION QID PRN 05/09/20 05/10/20 Allergies Allergy/AdvReac Type Severity Reaction Status Date / Time No Known Allergies Allergy Verified 05/09/20 08:39 Review of Systems Review of Systems: ROS unobtainable: Yes unobtainable due to endotracheal tube and unobtainable due to mental status PMFSH Past Medical History Medical History (Updated 05/24/20 @ 03:59 by Jayant Hanley MD) Anemia Anxiety COPD (chronic obstructive pulmonary disease) Disorder of autonomic nervous system Dysphagia With G-Tube placement Encephalopathy chronic Hydrocephalus Hypertension Paroxysmal tachycardia Surgical History Surgical History History of tracheostomy x2 Family History Family History Mother Endometrial cancer Father Hypertension Sibling Seizure Social History Social History Social History: No hx of tobacco use but heavy alcohol use per sister. She was unsure if patient has hx of drug use. Patient is a [place] [facility] resident. He is full code Smoking status: Never smoker Alcohol intake: never Substance use: unknown Gender identity (if verbalized by the patient): Male Spiritual care concerns: No Exam Narrative: Exam Narrative: GENERAL: Encephalopathic, eyes are open, no purposeful response HEAD: Normocephalic, atraumatic. EYES: 3+ PERRLA ENT: Nares clear, no rhinorrhea or epistaxis. Mucous membranes moist. NECK: Supple. CHEST: Respiratory distress with tachypnea, hypoxia, coarse breath sounds bilaterally HEART: Tachycardic rate, sinus rhythm ABDOMEN:Non distended, G-tube in place EXTREMITIES: Contractures of the bilateral upper and lower extremities SKIN: Warm NEURO: Eyes open, cannot assess orientation. Encephalopathic. Course Vital Signs Vital signs: Vital Signs Temperature 39.4 C H 05/24/20 01:19 Pulse Rate 51 L 05/24/20 01:19 Respiratory Rate 38 H 05/24/20 01:19 Blood Pressure 143/73 H 05/24/20 01:19 Pulse Oximetry 84 L 05/24/20 01:19 Temperature 38.8 C H 05/24/20 03:08 Pulse Rate 116 H 05/24/20 04:45 Respiratory Rate 27 H 05/24/20 04:15 Blood Pressure 107/63 05/24/20 04:15 Pulse Oximetry 94 05/24/20 04:47 Procedures Intubation Intubation #1: Intubation Date: 05/24/20 Intubation Time: 10:30 Time out performed: Yes sedative: Etomidate Mg Given: 10 paralytic: Rocuronium Mg Given: 50 Laryngoscope: other (VL) Tube Size (cm): 7.0 Method of Intubation: orotracheal Number of Attempts: 1 Tube Secured Depth (cm): 24 Tube Secured Location: lips Tube Placement Confirmation: visualized tube passing through cords, equal breath sounds bilaterally,
--- NOTE | 2020-05-24 01:32 | PC.NURSE ---
Pt. intubated by UYEN Montoya. 1 L NS hung wide open. 0132 10 mg etomidate administered IVP VORB YVETTE Oliveros 0132 50 Rocc. administered IVP VORB by Arlin CRAWFORD 7.0 ET tubed placed measuring 24 at the upper lip. Positive color change, breath sounds heard in all bases, and chest rise and fall noted.
--- NOTE | 2020-05-24 01:40 | ECG_ITS ---
Measurements Intervals [place] Rate: 137 P: 62 ID: 136 QRS: -38 QRSD: 94 T: 48 QT: 304 QTc: 460 Interpretive Statements SINUS TACHYCARDIA LEFT AXIS DEVIATION CANNOT RULE OUT SEPTAL INFARCT, AGE INDETERMINATE BORDERLINE T WAVE ABNORMALITY- INFERIOR LEADS ABNORMAL ECG Electronically Signed On 05-24-2020 8:01:04 CLINICAL LIAISON by Leon Balderas D.O.
[2020-05-24] MEDS: AMPICILLIN SULB 1.5 GM/NS 50ML 1.5 GM/50 ML VIAL IVPB ×4 (01:46→18:05)
[2020-05-24 01:56] LABS: Alveolar/Arterial O2 Gradient 505.2 mmHg; Base Excess ABG -1.6 mEq/l (+/-2.0); Carboxyhemoglobin 0.3 % THb (0-2.0); Fractional Inspired Oxygen 100 %; HCO3 ABG 24.7 mEq/l (22.0-26.0); Methemoglobin ABG 0.4 %THb (0-1.5); Oxygen Content ABG 15.7 %vol (16.0-22.0); Oxygen Saturation ABG 98.9 % (95.0-100.0); Oxyhemoglobin 97.9 % THb (90.0-100.0); PO2 ABG 158.8 mmHg (80.0-100.0); PO2 FiO2 Ratio Arterial Blood 1.59 %; Reduced Hemoglobin 1.4 %THb (0-5.0); Total Hemoglobin 11.2 g/dL (12.0-18.0); pH ABG 7.321 (7.350-7.450)
[2020-05-24 01:57] LABS: Device VENTILATOR; Modified Allen's Test Unable to perform; Site Drawn LEFT RADIAL
[2020-05-24 01:58] LABS: Arterial Blood Gas PEEP 8 cmH2O; Arterial Blood Gas Tidal Volume 400 ml; Arterial Blood Gas Vent Mode ASSIST CONTROL; Arterial Blood Gas Ventilator rate 16 /MIN
[2020-05-24 02:03] LABS: Basophils Absolute Auto 0.1 K/mm3 (0.0-0.1); Basophils Percent Auto 0.3 % (0.2-1.2); Eosinophils Absolute Auto 0.4 K/mm3 (0-0.3); Eosinophils Percent Auto 2.1 % (0-4.4); Hematocrit 37.2 % (42.0-52.0); Hemoglobin 11.3 g/dL (14.0-18.0); Immature Granulocyte Absolute 0.08 K/mm3 (0.00-0.031); Immature Granulocyte Percent A 0.4 % (0-0.5); Lymphocytes Absolute Auto 1.59 K/mm3 (0.9-3.2); Lymphocytes Percent Auto 8.6 % (18.3-44.2); Mean Corpuscular HGB Conc 30.4 g/dl (32-36); Mean Corpuscular Hemoglobin 24.5 pg (26-34); Mean Corpuscular Volume 80.7 fl (80-100); Mean Platelet Volume 9.7 fl (7.4-10.4); Monocytes Percent Auto 5.3 % (2.6-8.5); Neutrophils Absolute Auto 15.4 K/mm3 (1.3-6.7); Neutrophils Percent Auto 83.3 % (45.5-73.1); Platelet Count Result 539 k/mm3 (150-375); Red Blood Count 4.61 M/mm3 (4.6-6.20); Red Cell Distribution Width 17.4 % (11.5-14.5); White Blood Count 18.5 K/mm3 (4.5-10.0)
[2020-05-24] MEDS: SODIUM CHLORIDE 0.9% IV 1,000 ML 999 ML IV CONT (02:03)
[2020-05-24 02:09] LABS: Add Urine Microscopic? YES; Appearance Urine Cloudy (Clear); Bilirubin Urine Negative (Negative); Blood Urine 3+ (Negative); Calcium Oxalate Crystals Urine Many /hpf; Color Urine Red (Yellow); Glucose Urine UA Negative (Negative); Ketones Urine Negative (Negative); Leukocyte Esterase Ur 2+ LEU/UL (Negative); Mucus Urine Few /lpf; Nitrate Urine Negative (Negative); Protein Urine 2+ mg/dL (Negative); RBC Urine >75 /hpf (0-2); Specific Grav Ur 1.012 (1.001-1.035); Squamous Epithelial Cell Urine Occasional /hpf (Few); Urobilinogen Urine Negative mg/dL (<2.0); WBC Urine >75 /hpf
[2020-05-24 02:11] LABS: INR 1.2; Prothrombin Time 15.7 Seconds (11.1-14.7)
[2020-05-24] MEDS: FENTANYL 2,500MCG/NS250ML(*CRX 2,500 MCG/250 ML BAG IV CONT (02:11)
[2020-05-24 02:12] LABS: Partial Thromboplastin Time 39.4 SECONDS (22.3-36.8)
[2020-05-24 02:22] LABS: Potassium 5.3 mmol/L (3.4-5.0)
[2020-05-24 02:23] LABS: Lactic Acid Reflex 2.9 mmol/L (0.7-2.1)
[2020-05-24 02:27] LABS: Alanine Aminotransferase 17 U/L (4-50); Albumin Level 3.8 g/dL (3.5-5.1); Alkaline Phosphatase 84 U/L (38-126); Anion Gap 9 mmol/L (8-16); Aspartate Amino Transferase 37 U/L (17-59); Bilirubin,Total 0.3 mg/dL (0.2-1.3); Blood Urea Nitrogen 18 mg/dL (9-20); Calcium 9.3 mg/dL (8.4-10.2); Carbon Dioxide 28 mmol/L (22-30); Chloride 96 mmol/L (98-107); Estimated CRCL calculation 82 ml/min; Estimated Glomerular Filt Rate > 60; Glucose 123 mg/dL (75-110); Lactate Dehydrogenase 516 U/L (313-618); Sodium 133 mmol/L (137-145)
[2020-05-24 02:34] LABS: NT Pro B Type Natriuretic Pept 66 PG/ML (5-100); Troponin I < 0.012 ng/mL (0.000-0.034)
--- NOTE | 2020-05-24 03:07 | PC.NURSE ---
Spoke w/ pt. daughter updated on pt. status.
--- NOTE | 2020-05-24 03:45 | PM.IMHP ---
H&P: HPI History of Present Illness Date/Time: 05/24/20 03:45 Chief Complaint: hypoxia Narrative: This is a 60 year old male with chronic encephalomalacia and just discharged from our Hospitalist service 2 days ago after he was treated for acute respiratory failure, pneumonia, and septic shock. Tonight the patient returned from [facility] for acute respiratory distress and being found hypoxic. He was on a nonrebreather with oxygen saturations around 85% en route to the hospital. On arrival to the ER the patient was found to be septic with fever of 38.8 C, tachycardic with HR in the 130s, tachypneic and hypoxic. The patient was intubated and placed on mechanical ventilation in the ER. He was also found to have an elevated lactic acid of 2.9 and a grossly abnormal urinalysis. He was treated with a NS IV bolus as well as antibiotics for possible aspiration pneumonia. On my encounter with the patient he is intubated and on mechanical ventilation. No other history is obtainable. [employer] Care Manager has been consulted by ER provider. The patient arrived from the ER with a blood pressure of 77/44 mm Hg which was rechecked various times by nursing staff. Review of Systems Review of Systems: All systems reviewed & are unremarkable except as noted in HPI and below PMFSH Past Medical History Medical History (Updated 05/24/20 @ 06:21 by Jayant Hanley MD) Anemia Anxiety COPD (chronic obstructive pulmonary disease) Disorder of autonomic nervous system Dysphagia With G-Tube placement Encephalopathy chronic Hydrocephalus Hypertension Paroxysmal tachycardia Surgical History Surgical History History of tracheostomy x2 Family History Family History Mother Endometrial cancer Father Hypertension Sibling Seizure Social History Social History Social History: No hx of tobacco use but heavy alcohol use per sister. She was unsure if patient has hx of drug use. Patient is a custodial resident. He is full code Smoking status: Never smoker Alcohol intake: former Substance use: never Gender identity (if verbalized by the patient): Male Sexual Orientation (if Verbalized by the Patient): Straight or Heterosexual Spiritual care concerns: No Meds Home Medications and Allergies Home Medications Medication Instructions Recorded Confirmed Type ipratropium-albuterol 3 ml INHALATION QID PRN 05/09/20 05/10/20 History buspirone 10 mg FEEDING TUBE TID #90 tablet 05/22/20 Rx diltiazem HCl 60 mg FEEDING TUBE Q6HR #120 tablet 05/22/20 Rx famotidine 20 mg FEEDING TUBE BID #60 tablet 05/22/20 05/10/20 Rx folic acid 1 mg FEEDING TUBE DAILY #30 tablet 05/22/20 Rx lorazepam [Ativan] 0.25 mg FEEDING TUBE HS PRN #20 05/22/20 Rx tablet metoclopramide HCl 5 mg FEEDING TUBE ACHS #120 tablet 05/22/20 Rx miconazole nitrate [Aloe [place]pine 1 applic TOPICAL Q12HR #1692 g 05/22/20 Rx Antifungal (micon)] Allergies Allergy/AdvReac Type Severity Reaction Status Date / Time No Known Allergies Allergy Verified 05/09/20 08:39 Vital Signs Vital Signs - 24 hr 05/24/20 01:19 05/24/20 01:30 05/24/20 01:45 Temperature 39.4 C H Pulse Rate 51 L 158 H 152 H Respiratory Rate 38 H 54 H 16 Blood Pressure 143/73 H 172/77 H 134/69 Pulse Oximetry 84 L 91 96 05/24/20 02:00 05/24/20 02:04 05/24/20 02:11 Temperature Pulse Rate 153 H 152 H 149 H Respiratory Rate 16 21 H Blood Pressure 151/78 H Pulse Oximetry 99 100 05/24/20 02:21 05/24/20 02:28 05/24/20 02:32 Temperature 38.4 C H Pulse Rate 132 H 140 H Respiratory Rate 40 H 22 H Blood Pressure 95/65 L Pulse Oximetry 92 05/24/20 02:43 05/24/20 02:57 05/24/20 03:00 Temperature Pulse Rate 136 H 132 H 135 H Respiratory Rate 40 H 24 H 23 H Blood Pressure 104/66 109/64 Pulse
--- NOTE | 2020-05-24 04:30 | ADMGEN ---
This patient, King Sullivan, was admitted to Intensive Care Unit-3. Patient/family oriented to hospital policies and general routines including ID bracelet, bed and alarms, visiting hours, pain management, procedures, bathroom and other care routines, personal items, smoking policy, room service/diet, and visiting hours. Information on how to activate the Rapid Response Team has been discussed. Patient/Family are encouraged to report perceived risks to care and to ask questions if they do not understand what they are told or what they should do.
[2020-05-24 05:00] LABS: Reflex Lactic Acid Yes or No Add Lactic
--- NOTE | 2020-05-24 05:35 | WPDPROCEDUR ---
Procedures Central Line Placement Right IJ: Central Line Date: 05/24/20 Central Line Time: 05:20 Performed Emergently - Given emergent patient condition, temporal constraints may have precluded informed consent.: Yes Time Out Performed: Yes Patient Position: supine Provider Prep: mask, sterile gown, sterile gloves, Max. sterile barrier precautions, cap and hand hygiene with conventional soap/water or alcohol based hand rub Central line prep: 2% Chlorhexidine scrub Sterile US Technique with sterile gel/sterile probe covers: Yes Central line lumen inserted: triple Latvian: 7 Length (cm): 17 Depth of Insertion (cm): 16 Post Procedure: sutured in place, good blood return, all ports aspirated, flushed, capped, transparent dressing, securement product and aseptic technique maintained throughout procedure Post procedure x-ray: tip of catheter in good position and no pneumothorax seen Patient tolerated procedure: well Complications: none Additional comments: Date of service was 05/24/2020 at 05:20 hrs.
[2020-05-24] MEDS: SODIUM CHLORIDE 0.9% IV 1,000 ML 100 ML IV CONT ×3 (05:51→20:32)
--- NOTE | 2020-05-24 11:47 | PCDIET ---
Nutrition assessment complete: When appropriate, due to aspiration, recommend starting a more elemental formula Vital 1.2 at 10ml/hr, increasing 10ml q 4hrs, to goal of 60ml/hr as tolerated to provide 1584 kcals, 99g protein, and 1070ml of free water. Increased protein needs for wound on rt toe. If aspiration continues and patient wants to continue care, pt may benefit from g-tube, with the addition of J tube and elemental feedings. Following daily in ICU.
--- NOTE | 2020-05-24 12:07 | PC.NURSE ---
Addendum entered by Nicki Lara RN 05/24/20 12:09: Daughters name Torres sparks in original note. Original Note: Spoke with daughter Golden noted no changes in oxygen demand but continues to be febrile. Reviewed administration of IV antibiotics/Tylenol.
[2020-05-24] MEDS: ENOXAPARIN 40 MG/0.4 ML SYRINGE SUB-Q (12:26)
[2020-05-24 12:27] LABS: Hematocrit 27.9 % (42.0-52.0); Hemoglobin 8.6 g/dL (14.0-18.0); Mean Corpuscular HGB Conc 30.8 g/dl (32-36); Mean Corpuscular Hemoglobin 24.6 pg (26-34); Mean Corpuscular Volume 79.9 fl (80-100); Mean Platelet Volume 8.9 fl (7.4-10.4); Platelet Count Result 317 k/mm3 (150-375); Red Blood Count 3.49 M/mm3 (4.6-6.20); Red Cell Distribution Width 17.2 % (11.5-14.5); White Blood Count 16.7 K/mm3 (4.5-10.0)
[2020-05-24 12:39] LABS: Anion Gap 3 mmol/L (8-16); Blood Urea Nitrogen 18 mg/dL (9-20); Calcium 8.7 mg/dL (8.4-10.2); Carbon Dioxide 27 mmol/L (22-30); Chloride 102 mmol/L (98-107); Estimated CRCL calculation 78 ml/min; Estimated Glomerular Filt Rate > 60; Glucose 87 mg/dL (75-110); Lactic Acid 0.8 mmol/L (0.7-2.1); Magnesium 1.5 mg/dL (1.6-2.3); Potassium 4.4 mmol/L (3.4-5.0); Sodium 132 mmol/L (137-145)
[2020-05-24 12:52] LABS: Band Neutrophils Percent 18 % (0-6); Eosinophils Absolute Manual 0.33 K/mm3 (0.02-0.5); Eosinophils Percent Manual 2 % (0-4); Hypochromasia 1+ (NORMAL); Monocytes Absolute Manual 1.67 K/mm3 (0.1-0.90); Monocytes Percent Manual 10 % (3-9); Neutrophils Absolute Manual 14.19 K/mm3 (1.3-6.7); Neutrophils Percent Manual 67 % (46-73); Platelet Estimate Adequate (Adequate); Tear Drop Cells 1+ (NORMAL); Total Cells Counted 100
[2020-05-24 12:53] LABS: Large Platelets Present
[2020-05-24] MEDS: CENTRAL LINE FLUSH 10 ML IV PUSH ×2 (13:04→20:42)
--- NOTE | 2020-05-24 13:32 | WPDCNINT ---
Assessment and Plan Assessment and plan (1) Acute respiratory failure with hypoxia and hypercarbia: Code(s): J96.01 - Acute respiratory failure with hypoxia; J96.02 - Acute respiratory failure with hypercapnia Status: Acute Assessment and Plan: Acute Respiratory failure secondary to recurrent aspiration pneumonia Continue full mechanical ventilation support to prevent hypoxemia/hypercarbia and end organ damage. ABG and PCXR reviewed and will repeat in am. Increased respiratory rate Low tidal volume ventilation strategy to prevent volutrauma Bronchodilators COVID-19 PCR pending (2) Severe sepsis: Code(s): A41.9 - Sepsis, unspecified organism; R65.20 - Severe sepsis without septic shock Status: Acute Assessment and Plan: Secondary to recurrent aspiration pneumonia and possible UTI Patient was hypertensive on presentation but blood pressure improved with IV fluid bolus. Central venous catheter was placed but patient has not needed vasopressor this time Lactic acid has normalized Continue to monitor Continue broad-spectrum antibiotics in vancomycin and Unasyn Cultures have been sent and are pending Continue IV fluids (3) Septic shock: Code(s): A41.9 - Sepsis, unspecified organism; R65.21 - Severe sepsis with septic shock Status: Acute Assessment and Plan: Patient arrived from the ER hypotensive w/ BP of 77/44 mm Hg. He was treated with another 500 cc IV fluid bolus in the ICU and I placed a central line and ordered Levophed for vasopressor support. Source of sepsis appears to be pulmonary but may also be urinary. Continue IV antibiotics. Blood, urine, sputum cultures. Continue to monitor vital signs and urine output closely. Monitor acid-base status. Check reflex lactic acid. (4) Pneumonia: Qualifiers: Aspiration pneumonia type: unspecified Laterality: bilateral Lung location: unspecified part of lung Pneumonia type: aspiration pneumonia Qualified Code(s): J69.0 - Pneumonitis due to inhalation of food and vomit Code(s): J18.9 - Pneumonia, unspecified organism Status: Acute Assessment and Plan: See above (5) Abnormal urinalysis: Code(s): R82.90 - Unspecified abnormal findings in urine Status: Acute Assessment and Plan: Suspected to be UTI. Urine culture pending. Continue IV antibiotics as above (6) Hyperkalemia: Code(s): E87.5 - Hyperkalemia Status: Acute Assessment and Plan: Resolved with IV fluid resuscitation Monitor (7) Suspected 2019 novel coronavirus infection: Code(s): Z20.828 - Contact with and (suspected) exposure to other viral communicable diseases Status: Acute Assessment and Plan: Patient has again been swab for COVID 19 in the ER. Continue droplet isolation. Continue supportive care. COVID-19 results pending. (8) Dysphagia: Qualifiers: Dysphagia type: unspecified Qualified Code(s): R13.10 - Dysphagia, unspecified Code(s): R13.10 - Dysphagia, unspecified Status: Chronic Assessment and Plan: NPO. Hold tube feeds. (9) Encephalopathy chronic: Code(s): G93.49 - Other encephalopathy Status: Chronic Assessment and Plan: Head CT IMPRESSION: 1. No acute intracranial findings or interval change. 2. Severely dilated ventricular system out of proportion to sulci, NPH versus central atrophy. 3. Bifrontal and bitemporal encephalomalacia. Posttraumatic? Patient has hydrocephalus listed as doses on his chronic medical history. Details unknown at this time Hold all sedatives at this time Will use Precedex infusion if needed for mechanical ventilation Additional Plan DVT prophylaxis -Lovenox Stress ulcer prophylaxis -add Protonix Nutrition -NPO Code Status - Full Code Total Critical Care Time - 35 minutes Due to a high probability of clinically significant, life threatening deterioration, the patient re
--- NOTE | 2020-05-24 17:15 | PM.IMPN ---
Progress Note: A&P Assessment and Plan (1) Acute respiratory failure with hypoxia and hypercarbia: Code(s): J96.01 - Acute respiratory failure with hypoxia; J96.02 - Acute respiratory failure with hypercapnia Status: Acute Assessment and Plan: Patient has been admitted to ICU. Strict NPO. Art Teacher has been consulted and appreciate his input. Acute respiratory failure is likely secondary to aspiration pneumonia. Influenza negative. Continue ventilatory support and wean off when possible. Continue IV abx. Discussed with family at length. (2) Septic shock: Code(s): A41.9 - Sepsis, unspecified organism; R65.21 - Severe sepsis with septic shock Status: Acute Assessment and Plan: Lactic acid 2.9. WBC 18K with bandemia. Patient arrived from the ER hypotensive w/ BP of 77/44 mm Hg. He was treated with another 500 cc IV fluid bolus in the ICU and central line placed. Levophed ordered for vasopressor support. Source of sepsis appears to be pulmonary but may also be urinary. Repeat Lactic normal. Continue IV antibiotics. Follow up on culture results. (3) Pneumonia: Qualifiers: Aspiration pneumonia type: unspecified Laterality: bilateral Lung location: unspecified part of lung Pneumonia type: aspiration pneumonia Qualified Code(s): J69.0 - Pneumonitis due to inhalation of food and vomit Code(s): J18.9 - Pneumonia, unspecified organism Status: Acute Assessment and Plan: CXR showing Rt lung airspace disease. Probably aspiration pneumonia. Follow up on cultures. Continue IV antibiotics. Continue bronchodilators. Wean vent as tolerated. NPO. Hold tube feeds. May need surgical J-tube? (4) Abnormal urinalysis: Code(s): R82.90 - Unspecified abnormal findings in urine Status: Acute Assessment and Plan: UA noted. Urine culture pending. Continue IV antibiotics. (5) Leukocytosis: Qualifiers: Leukocytosis type: unspecified Qualified Code(s): D72.829 - Elevated white blood cell count, unspecified Code(s): D72.829 - Elevated white blood cell count, unspecified Status: Acute Assessment and Plan: Secondary to severe sepsis and pneumonia. Monitor CBCD. (6) Dysphagia: Qualifiers: Dysphagia type: unspecified Qualified Code(s): R13.10 - Dysphagia, unspecified Code(s): R13.10 - Dysphagia, unspecified Status: Chronic Assessment and Plan: Chronic with GTube in place. NPO. Hold tube feeds. (7) Encephalopathy chronic: Code(s): G93.49 - Other encephalopathy Status: Chronic Assessment and Plan: Patient with acute on chronic encephalopathy. Acute process related to above. 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 Appears more alert now (8) Anemia: Code(s): D64.9 - Anemia, unspecified Status: Acute Assessment and Plan: Appears to be chronic. Was stable last admission in the 8 range. Follow. (9) Suspected 2019 novel coronavirus infection: Code(s): Z20.828 - Contact with and (suspected) exposure to other viral communicable diseases Status: Acute Assessment and Plan: COVID negative 05/24/20 (10) Hyperkalemia: Code(s): E87.5 - Hyperkalemia Status: Acute Assessment and Plan: Potassium 5.4 on admission but normal now. Follow (11) Thrombocytosis: Code(s): D47.3 - Essential (hemorrhagic) thrombocythemia Status: Acute Assessment and Plan: Likely reactive. Repeat level normal. Continue to monitor platelets. Subjective Date/time seen: 05/24/20 17:15 Interval history: Date of service 05/24/20 60yo male with HTN, hydrocephalus and dementia who returns due to acute respiratory failure from recurrent aspiration. Patient intubated. He is alert. No issues today per RN. Review of Systems Re
[2020-05-24 17:50] LABS: SARS-CoV-2 RNA PCR Negative
[2020-05-24 18:40] LABS: Glucose Point of Care 76 (65-105)
[2020-05-25] VITALS (32 sets, daily range): BP systolic 112–139; BP diastolic 44–85; PULSE 60–123; RESP 18–25; TEMP 36.7–37.2; O2SAT 91–100
[2020-05-25] MEDS: AMPICILLIN SULB 1.5 GM/NS 50ML 1.5 GM/50 ML VIAL IVPB ×5 (01:08→23:44)
[2020-05-25 01:09] LABS: Glucose Point of Care 74 (65-105)
[2020-05-25 04:07] LABS: Alveolar/Arterial O2 Gradient 160.7 mmHg; Base Excess ABG 0.1 mEq/l (+/-2.0); Carboxyhemoglobin 0.3 % THb (0-2.0); Device VENTILATOR; Fractional Inspired Oxygen 50 %; HCO3 ABG 23.8 mEq/l (22.0-26.0); Methemoglobin ABG 0.4 %THb (0-1.5); Modified Allen's Test Unable to perform; Oxygen Content ABG 13.1 %vol (16.0-22.0); Oxygen Saturation ABG 99.1 % (95.0-100.0); Oxyhemoglobin 97.9 % THb (90.0-100.0); PCO2 ABG 34.9 mmHg (35.0-45.0); PO2 ABG 156.5 mmHg (80.0-100.0); PO2 FiO2 Ratio Arterial Blood 3.13 %; Reduced Hemoglobin 1.4 %THb (0-5.0); Site Drawn LEFT RADIAL; Total Hemoglobin 9.3 g/dL (12.0-18.0); pH ABG 7.452 (7.350-7.450)
[2020-05-25 04:08] LABS: Hematocrit 23.3 % (42.0-52.0); Hemoglobin 7.2 g/dL (14.0-18.0); Mean Corpuscular HGB Conc 30.9 g/dl (32-36); Mean Corpuscular Hemoglobin 24.6 pg (26-34); Mean Corpuscular Volume 79.5 fl (80-100); Mean Platelet Volume 9.6 fl (7.4-10.4); Platelet Count Result 310 k/mm3 (150-375); Red Blood Count 2.93 M/mm3 (4.6-6.20); Red Cell Distribution Width 17.2 % (11.5-14.5); White Blood Count 17.4 K/mm3 (4.5-10.0)
[2020-05-25 04:08] LABS: Arterial Blood Gas PEEP 8 cmH2O; Arterial Blood Gas Tidal Volume 400 ml; Arterial Blood Gas Vent Mode ASSIST CONTROL; Arterial Blood Gas Ventilator rate 20 /MIN
[2020-05-25 04:54] LABS: Alanine Aminotransferase 13 U/L (4-50); Albumin Level 2.8 g/dL (3.5-5.1); Alkaline Phosphatase 58 U/L (38-126); Anion Gap 7 mmol/L (8-16); Aspartate Amino Transferase 25 U/L (17-59); Bilirubin,Total 0.4 mg/dL (0.2-1.3); Blood Urea Nitrogen 10 mg/dL (9-20); Calcium 8.5 mg/dL (8.4-10.2); Carbon Dioxide 25 mmol/L (22-30); Chloride 101 mmol/L (98-107); Estimated CRCL calculation 112 ml/min; Estimated Glomerular Filt Rate > 60; Glucose 118 mg/dL (75-110); Magnesium 1.6 mg/dL (1.6-2.3); Potassium 3.1 mmol/L (3.4-5.0); Sodium 133 mmol/L (137-145)
[2020-05-25] MEDS: CENTRAL LINE FLUSH 10 ML IV PUSH ×4 (06:27→20:56)
[2020-05-25] MEDS: MAGNESIUM SULF 2 GM/WATER 50ML 2 GM/50 ML BAG IVPB (08:04)
[2020-05-25] MEDS: ENOXAPARIN 40 MG/0.4 ML SYRINGE SUB-Q (08:04)
[2020-05-25] MEDS: PANTOPRAZOLE SODIUM IV 40 MG VIAL IV PUSH (08:04)
[2020-05-25] MEDS: SODIUM CHLORIDE 0.9% IV 1,000 ML 100 ML IV CONT ×2 (08:05→17:36)
--- NOTE | 2020-05-25 11:55 | WPDINTPN ---
Progress Note: A&P Assessment and Plan (1) Acute respiratory failure with hypoxia and hypercarbia: Code(s): J96.01 - Acute respiratory failure with hypoxia; J96.02 - Acute respiratory failure with hypercapnia Status: Acute Assessment and Plan: Acute Respiratory failure secondary to recurrent aspiration pneumonia Continue full mechanical ventilation support to prevent hypoxemia/hypercarbia and end organ damage. ABG and PCXR reviewed, peep decreased to 5, will wean FiO2 as tolerated to maintain O2 sats > 92%. Low tidal volume ventilation strategy to prevent volutrauma Bronchodilators COVID-19 PCR negative (2) Severe sepsis: Code(s): A41.9 - Sepsis, unspecified organism; R65.20 - Severe sepsis without septic shock Status: Acute Assessment and Plan: Secondary to recurrent aspiration pneumonia and possible UTI Patient was hypotensive on presentation but blood pressure improved with IV fluid bolus. Central venous catheter was placed but patient has not needed vasopressor this time Lactic acid has normalized Continue to monitor Continue broad-spectrum antibiotics in vancomycin and Unasyn Cultures have been sent and are pending Continue IV fluids (3) Septic shock: Code(s): A41.9 - Sepsis, unspecified organism; R65.21 - Severe sepsis with septic shock Status: Acute Assessment and Plan: Patient arrived from the ER hypotensive w/ BP of 77/44 mm Hg. He was treated with another 500 cc IV fluid bolus in the ICU and I placed a central line and ordered Levophed for vasopressor support. Source of sepsis appears to be pulmonary but may also be urinary. Continue IV antibiotics. Blood, urine, sputum cultures. Continue to monitor vital signs and urine output closely. Monitor acid-base status. -lactic acid has normalized to 0.8 (2.9 on admission) (4) Pneumonia: Qualifiers: Aspiration pneumonia type: unspecified Laterality: bilateral Lung location: unspecified part of lung Pneumonia type: aspiration pneumonia Qualified Code(s): J69.0 - Pneumonitis due to inhalation of food and vomit Code(s): J18.9 - Pneumonia, unspecified organism Status: Acute Assessment and Plan: See above (5) Abnormal urinalysis: Code(s): R82.90 - Unspecified abnormal findings in urine Status: Acute Assessment and Plan: Suspected to be UTI. Urine culture pending. Continue IV antibiotics as above (6) Hyperkalemia: Code(s): E87.5 - Hyperkalemia Status: Acute Assessment and Plan: Resolved with IV fluid resuscitation Monitor (7) Suspected 2019 novel coronavirus infection: Code(s): Z20.828 - Contact with and (suspected) exposure to other viral communicable diseases Status: Acute Assessment and Plan: Patient has again been swab for COVID 19 in the ER. Continue droplet isolation. Continue supportive care. COVID-19 results pending. (8) Dysphagia: Qualifiers: Dysphagia type: unspecified Qualified Code(s): R13.10 - Dysphagia, unspecified Code(s): R13.10 - Dysphagia, unspecified Status: Chronic Assessment and Plan: NPO. Will restart tube feeds gradually (9) Encephalopathy chronic: Code(s): G93.49 - Other encephalopathy Status: Chronic Assessment and Plan: Head CT IMPRESSION: 1. No acute intracranial findings or interval change. 2. Severely dilated ventricular system out of proportion to sulci, NPH versus central atrophy. 3. Bifrontal and bitemporal encephalomalacia. Posttraumatic? Patient has hydrocephalus listed as doses on his chronic medical history. Details unknown at this time Hold all sedatives at this time Currently off all sedation Additional Plan DVT prophylaxis -Lovenox Stress ulcer prophylaxis - Protonix Nutrition -NPO Code Status - Full Code Total Critical Care Time - 32 minutes Due to a high probability of clinically significant, life threatening
[2020-05-25 12:14] LABS: Glucose Point of Care 90 (65-105)
--- NOTE | 2020-05-25 14:05 | PM.IMPN ---
Progress Note: A&P Assessment and Plan (1) Acute respiratory failure with hypoxia and hypercarbia: Code(s): J96.01 - Acute respiratory failure with hypoxia; J96.02 - Acute respiratory failure with hypercapnia Status: Acute Assessment and Plan: Patient has been admitted to ICU. Strict NPO. Electronic Lab Technician has been consulted and appreciate his input. Acute respiratory failure is likely secondary to aspiration pneumonia. Influenza negative. Continue ventilatory support and wean off when possible. Continue IV abx. Discussed at length with family yesterday. (2) Septic shock: Code(s): A41.9 - Sepsis, unspecified organism; R65.21 - Severe sepsis with septic shock Status: Acute Assessment and Plan: Lactic acid 2.9. WBC 18K with bandemia. Patient arrived from the ER hypotensive w/ BP of 77/44 mm Hg. He was treated with another 500 cc IV fluid bolus in the ICU and central line placed. Levophed ordered for vasopressor support but not required. Source of sepsis appears to be pulmonary. Repeat Lactic normal. Continue IV antibiotics. BCx NGTD.,. UCx mentioned below. Follow up on culture results. (3) Pneumonia: Qualifiers: Aspiration pneumonia type: unspecified Laterality: bilateral Lung location: unspecified part of lung Pneumonia type: aspiration pneumonia Qualified Code(s): J69.0 - Pneumonitis due to inhalation of food and vomit Code(s): J18.9 - Pneumonia, unspecified organism Status: Acute Assessment and Plan: CXR reviewed today showing Rt lung airspace disease; doubt PTX. Probably aspiration pneumonia. Follow up on cultures. Continue IV antibiotics. Continue bronchodilators. Wean vent as tolerated. NPO. Hold tube feeds. May need surgical J-tube? Or Trach to try to prevent recurrent aspirations. (4) Abnormal urinalysis: Code(s): R82.90 - Unspecified abnormal findings in urine Status: Acute Assessment and Plan: UA noted. Urine culture growing Enterococcus but 10-49K; consider contaminate. Blood cultures no growth to date. Continue IV antibiotics. (5) Leukocytosis: Qualifiers: Leukocytosis type: unspecified Qualified Code(s): D72.829 - Elevated white blood cell count, unspecified Code(s): D72.829 - Elevated white blood cell count, unspecified Status: Acute Assessment and Plan: Secondary to severe sepsis and pneumonia. White count about the same. Monitor CBCD. (6) Dysphagia: Qualifiers: Dysphagia type: unspecified Qualified Code(s): R13.10 - Dysphagia, unspecified Code(s): R13.10 - Dysphagia, unspecified Status: Chronic Assessment and Plan: Chronic with GTube in place. NPO. Hold tube feeds. (7) Encephalopathy chronic: Code(s): G93.49 - Other encephalopathy Status: Chronic Assessment and Plan: Patient with acute on chronic encephalopathy. Acute process related to above. 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 More alert now. (8) Anemia: Code(s): D64.9 - Anemia, unspecified Status: Acute Assessment and Plan: Appears to be chronic. Was stable last admission in the 8 range. Hemoglobin 7.2 today. Follow. (9) Suspected 2019 novel coronavirus infection: Code(s): Z20.828 - Contact with and (suspected) exposure to other viral communicable diseases Status: Acute Assessment and Plan: COVID negative 05/24/20 (10) Hyperkalemia: Code(s): E87.5 - Hyperkalemia Status: Acute Assessment and Plan: Potassium 5.4 on admission but normal now. Follow (11) Thrombocytosis: Code(s): D47.3 - Essential (hemorrhagic) thrombocythemia Status: Acute Assessment and Plan: Likely reactive. Repeat level normal. Continue to monitor platelets. (12) DVT prophylaxis: Code(s): Z29.9 - Encounte
[2020-05-25 15:06] LABS: Vancomycin Trough 10.9 ug/mL (10.0-20.0)
[2020-05-25 17:41] LABS: Glucose Point of Care 88 (65-105)
[2020-05-25 23:58] LABS: Glucose Point of Care 82 (65-105)
[2020-05-26] VITALS (30 sets, daily range): BP systolic 125–147; BP diastolic 74–97; PULSE 85–108; RESP 20–22; TEMP 36.6–37.3; O2SAT 98–100
[2020-05-26] MEDS: SODIUM CHLORIDE 0.9% IV 1,000 ML 100 ML IV CONT (03:55)
[2020-05-26 04:08] LABS: Alveolar/Arterial O2 Gradient 119.3 mmHg; Base Excess ABG -2.5 mEq/l (+/-2.0); Carboxyhemoglobin 0.3 % THb (0-2.0); Fractional Inspired Oxygen 40 %; HCO3 ABG 21.1 mEq/l (22.0-26.0); Methemoglobin ABG 0.6 %THb (0-1.5); Oxygen Content ABG 12.2 %vol (16.0-22.0); Oxygen Saturation ABG 98.7 % (95.0-100.0); Oxyhemoglobin 97.2 % THb (90.0-100.0); PCO2 ABG 31.7 mmHg (35.0-45.0); PO2 ABG 129.4 mmHg (80.0-100.0); PO2 FiO2 Ratio Arterial Blood 3.23 %; Reduced Hemoglobin 1.9 %THb (0-5.0); Total Hemoglobin 8.7 g/dL (12.0-18.0); pH ABG 7.442 (7.350-7.450)
[2020-05-26 04:09] LABS: Arterial Blood Gas PEEP 5 cmH2O; Arterial Blood Gas Vent Mode CMV; Arterial Blood Gas Ventilator rate 20 /MIN; Device VENTILATOR; Site Drawn LEFT BRACHIAL
[2020-05-26 04:10] LABS: Arterial Blood Gas Tidal Volume 400 ml
[2020-05-26 05:12] LABS: Glucose Point of Care 66 (65-105)
[2020-05-26] MEDS: DEXTROSE 50% 25 GM/50 ML SYRINGE IV PUSH (05:23)
[2020-05-26] MEDS: AMPICILLIN SULB 1.5 GM/NS 50ML 1.5 GM/50 ML VIAL IVPB ×4 (05:24→23:42)
[2020-05-26] MEDS: CENTRAL LINE FLUSH 10 ML IV PUSH ×4 (05:30→20:25)
[2020-05-26 05:43] LABS: Hematocrit 23.9 % (42.0-52.0); Hemoglobin 7.4 g/dL (14.0-18.0); Mean Corpuscular Hemoglobin 24.4 pg (26-34); Mean Corpuscular Volume 78.9 fl (80-100); Mean Platelet Volume 9.7 fl (7.4-10.4); Platelet Count Result 288 k/mm3 (150-375); Red Blood Count 3.03 M/mm3 (4.6-6.20); Red Cell Distribution Width 17.4 % (11.5-14.5); White Blood Count 12.1 K/mm3 (4.5-10.0)
[2020-05-26 06:05] LABS: Alanine Aminotransferase 12 U/L (4-50); Albumin Level 2.8 g/dL (3.5-5.1); Alkaline Phosphatase 71 U/L (38-126); Anion Gap 8 mmol/L (8-16); Aspartate Amino Transferase 28 U/L (17-59); Bilirubin,Total 0.4 mg/dL (0.2-1.3); Blood Urea Nitrogen 5 mg/dL (9-20); Calcium 8.6 mg/dL (8.4-10.2); Carbon Dioxide 25 mmol/L (22-30); Chloride 102 mmol/L (98-107); Estimated CRCL calculation 111 ml/min; Estimated Glomerular Filt Rate > 60; Glucose 75 mg/dL (75-110); Magnesium 1.4 mg/dL (1.6-2.3); Potassium 3.2 mmol/L (3.4-5.0); Sodium 135 mmol/L (137-145)
[2020-05-26 06:14] LABS: Glucose Point of Care 98 (65-105)
[2020-05-26] MEDS: POTASSIUM CHLORIDE 20 MEQ PACKET (FOR LIQUID) 40 MEQ PO (08:46)
[2020-05-26] MEDS: ENOXAPARIN 40 MG/0.4 ML SYRINGE SUB-Q (08:47)
[2020-05-26] MEDS: PANTOPRAZOLE SODIUM IV 40 MG VIAL IV PUSH (08:47)
--- NOTE | 2020-05-26 09:38 | PM.IMPN ---
Progress Note: A&P Assessment and Plan (1) Acute respiratory failure with hypoxia and hypercarbia: Code(s): J96.01 - Acute respiratory failure with hypoxia; J96.02 - Acute respiratory failure with hypercapnia Status: Acute Assessment and Plan: Patient has been admitted to ICU. Strict NPO. Ceramic Products Sales Engineer has been consulted and appreciate his input. Acute respiratory failure is secondary to aspiration pneumonia; either aspiration or oral secretions or from reflux of TF. Influenza negative. Continue ventilatory support and wean off when possible. Continue IV abx. Discussed with family. (2) Septic shock: Code(s): A41.9 - Sepsis, unspecified organism; R65.21 - Severe sepsis with septic shock Status: Acute Assessment and Plan: Lactic acid 2.9. WBC 18K with bandemia. Patient arrived from the ER hypotensive w/ BP of 77/44 mm Hg. He was treated with another 500 cc IV fluid bolus in the ICU and central line placed. Levophed ordered for pressor support but not required. Source of sepsis appears to be pulmonary. Repeat Lactic normal. Continue IV antibiotics. BCx NGTD. UCx mentioned below. Follow up on culture results. (3) Pneumonia: Qualifiers: Aspiration pneumonia type: unspecified Laterality: bilateral Lung location: unspecified part of lung Pneumonia type: aspiration pneumonia Qualified Code(s): J69.0 - Pneumonitis due to inhalation of food and vomit Code(s): J18.9 - Pneumonia, unspecified organism Status: Acute Assessment and Plan: CXR reviewed today showing persistent Rt lung airspace disease. Probably aspiration pneumonia. BCx NGTD. Continue IV antibiotics. Continue bronchodilators. Wean vent as tolerated. NPO. Hold tube feeds. May need surgical J-tube? Or Trach to try to prevent recurrent aspirations. Discussed with retail sales representative. (4) Abnormal urinalysis: Code(s): R82.90 - Unspecified abnormal findings in urine Status: Acute Assessment and Plan: UA noted. Urine culture growing Enterococcus but 10-49K; consider contaminate. Blood cultures no growth to date. Continue IV antibiotics. (5) Leukocytosis: Qualifiers: Leukocytosis type: unspecified Qualified Code(s): D72.829 - Elevated white blood cell count, unspecified Code(s): D72.829 - Elevated white blood cell count, unspecified Status: Acute Assessment and Plan: Secondary to severe sepsis and pneumonia. White count better. Monitor CBCD. (6) Dysphagia: Qualifiers: Dysphagia type: unspecified Qualified Code(s): R13.10 - Dysphagia, unspecified Code(s): R13.10 - Dysphagia, unspecified Status: Chronic Assessment and Plan: Chronic with GTube in place. NPO. Hold tube feeds. (7) Encephalopathy chronic: Code(s): G93.49 - Other encephalopathy Status: Chronic Assessment and Plan: Patient with acute on chronic encephalopathy. Acute process related to above. 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 More alert now. (8) Anemia: Code(s): D64.9 - Anemia, unspecified Status: Acute Assessment and Plan: Appears to be chronic. Was stable last admission in the 8 range. Hemoglobin 7.4 today. Follow. (9) Suspected 2019 novel coronavirus infection: Code(s): Z20.828 - Contact with and (suspected) exposure to other viral communicable diseases Status: Acute Assessment and Plan: COVID negative 05/24/20 (10) Hyperkalemia: Code(s): E87.5 - Hyperkalemia Status: Acute Assessment and Plan: Potassium 5.4 on admission but now low. Replace. (11) Thrombocytosis: Code(s): D47.3 - Essential (hemorrhagic) thrombocythemia Status: Acute Assessment and Plan: Likely reactive. Repeat levels remaining normal. Continue to monitor platelets. (12) DVT prophy
[2020-05-26] MEDS: MAGNESIUM SULFATE 3GM/D5W100ML 3 GM/100 ML BAG IVPB (10:01)
--- NOTE | 2020-05-26 11:12 | WPDINTPN ---
Progress Note: A&P Assessment and Plan (1) Acute respiratory failure with hypoxia and hypercarbia: Code(s): J96.01 - Acute respiratory failure with hypoxia; J96.02 - Acute respiratory failure with hypercapnia Status: Acute Assessment and Plan: Acute Respiratory failure secondary to recurrent aspiration pneumonia from tube feeds or secretions Continue full mechanical ventilation support to prevent hypoxemia/hypercarbia and end organ damage. ABG and PCXR reviewed, currently on 40% FiO2 peep of 5. Tried to place patient on pressure support ventilation 12/5, tidal volumes only the 220 mL range, respiratory rate were 6-7 breaths per minute. Low tidal volume ventilation strategy to prevent volutrauma Bronchodilators COVID-19 PCR negative (2) Severe sepsis: Code(s): A41.9 - Sepsis, unspecified organism; R65.20 - Severe sepsis without septic shock Status: Acute Assessment and Plan: Secondary to recurrent aspiration pneumonia and possible UTI Patient was hypotensive on presentation but blood pressure improved with IV fluid bolus. Central venous catheter was placed but patient has not needed vasopressor this time Lactic acid has normalized Continue to monitor Continue broad-spectrum antibiotics in vancomycin and Unasyn Cultures have been sent and are pending Decrease IV fluids as patient be started on tube feeds (3) Septic shock: Code(s): A41.9 - Sepsis, unspecified organism; R65.21 - Severe sepsis with septic shock Status: Acute Assessment and Plan: Patient arrived from the ER hypotensive w/ BP of 77/44 mm Hg. He was treated with another 500 cc IV fluid bolus in the ICU and I placed a central line and ordered Levophed for vasopressor support. Source of sepsis appears to be pulmonary but may also be urinary. Continue IV antibiotics. Blood, urine, sputum cultures. Continue to monitor vital signs and urine output closely. Monitor acid-base status. -lactic acid has normalized to 0.8 (2.9 on admission) (4) Pneumonia: Qualifiers: Aspiration pneumonia type: unspecified Laterality: bilateral Lung location: unspecified part of lung Pneumonia type: aspiration pneumonia Qualified Code(s): J69.0 - Pneumonitis due to inhalation of food and vomit Code(s): J18.9 - Pneumonia, unspecified organism Status: Acute Assessment and Plan: See above (5) Abnormal urinalysis: Code(s): R82.90 - Unspecified abnormal findings in urine Status: Acute Assessment and Plan: Suspected to be UTI. Urine culture growing enterococci, could be a contaminate. Continue IV antibiotics as above (6) Hyperkalemia: Code(s): E87.5 - Hyperkalemia Status: Acute Assessment and Plan: Resolved with IV fluid resuscitation Monitor (7) Suspected 2019 novel coronavirus infection: Code(s): Z20.828 - Contact with and (suspected) exposure to other viral communicable diseases Status: Acute Assessment and Plan: Patient has again been swab for COVID 19 in the ER. Continue droplet isolation. Continue supportive care. COVID-19 results pending. (8) Dysphagia: Qualifiers: Dysphagia type: unspecified Qualified Code(s): R13.10 - Dysphagia, unspecified Code(s): R13.10 - Dysphagia, unspecified Status: Chronic Assessment and Plan: NPO. Will restart tube feeds gradually (9) Encephalopathy chronic: Code(s): G93.49 - Other encephalopathy Status: Chronic Assessment and Plan: Head CT IMPRESSION: 1. No acute intracranial findings or interval change. 2. Severely dilated ventricular system out of proportion to sulci, NPH versus central atrophy. 3. Bifrontal and bitemporal encephalomalacia. Posttraumatic? Patient has hydrocephalus listed as doses on his chronic medical history. Details unknown at this time Hold all sedatives at this time Currently off all sedation Additional Plan DVT prophylaxis -
--- NOTE | 2020-05-26 12:50 | PCDIET ---
Nutrition Follow-Up Complete: Nutrition Diagnosis: Inadequate oral intake related to inability to feed orally as evidence by need for mechanical ventilation Nutrition Goal: Total intake will meet estimated nutrition needs Goal in progress. MD ordered to start Vital 1.2 tube feedings today with goal of 50mL/hr. Given 22 hour daily infusion, this will provide 1320kcal and 82g protein (1.64g/kg) daily. Last recorded weight is 49.9 kg which is stable with last review. Bowel Motility: BM x 1 today. Labs Reviewed: Hgb (7.4), Hct (23.9), BUN (5), Cr (0.4), Na (135), K (3.2), Alb (2.8), Mg (1.4) Meds Noted: Unasyn, Novolog, Xopenex, Levophed, Protonix, NS at 100mL/hr, Vancomycin Additional Notes: s/p Mg Sulfate and KCl. Integumentary notes reviewed with no significant change. Will continue to monitor with same goal. Nutrition Monitoring and Evaluation: Follow up every Thursday/Thursday.
[2020-05-26 13:21] LABS: Glucose Point of Care 81 (65-105)
[2020-05-26 17:35] LABS: Glucose Point of Care 79 (65-105)
[2020-05-26] MEDS: SODIUM CHLORIDE 0.9% IV 1,000 ML 50 ML IV CONT (20:24)
[2020-05-26 23:49] LABS: Glucose Point of Care 91 (65-105)
[2020-05-27] VITALS (26 sets, daily range): BP systolic 109–158; BP diastolic 66–98; PULSE 91–112; RESP 13–30; TEMP 36.7–37.2; O2SAT 93–100
[2020-05-27 03:48] LABS: Alveolar/Arterial O2 Gradient 54.8 mmHg; Base Excess ABG -1.1 mEq/l (+/-2.0); Fractional Inspired Oxygen 30 %; HCO3 ABG 21.8 mEq/l (22.0-26.0); Methemoglobin ABG 0.6 %THb (0-1.5); Oxygen Content ABG 11.7 %vol (16.0-22.0); Oxygen Saturation ABG 98.8 % (95.0-100.0); Oxyhemoglobin 97.6 % THb (90.0-100.0); PO2 FiO2 Ratio Arterial Blood 4.17 %; Reduced Hemoglobin 1.8 %THb (0-5.0); Total Hemoglobin 8.3 g/dL (12.0-18.0); pH ABG 7.493 (7.350-7.450)
[2020-05-27 03:49] LABS: Arterial Blood Gas PEEP 5 cmH2O; Arterial Blood Gas Tidal Volume 400 ml; Arterial Blood Gas Vent Mode ASSIST CONTROL; Arterial Blood Gas Ventilator rate 20 /MIN; Device VENTILATOR; Modified Allen's Test Unable to perform; Site Drawn RIGHT RADIAL
[2020-05-27 05:35] LABS: Hematocrit 23.6 % (42.0-52.0); Hemoglobin 7.4 g/dL (14.0-18.0); Mean Corpuscular HGB Conc 31.4 g/dl (32-36); Mean Corpuscular Hemoglobin 24.4 pg (26-34); Mean Corpuscular Volume 77.9 fl (80-100); Mean Platelet Volume 9.6 fl (7.4-10.4); Platelet Count Result 299 k/mm3 (150-375); Red Blood Count 3.03 M/mm3 (4.6-6.20)
[2020-05-27 05:51] LABS: Alanine Aminotransferase 12 U/L (4-50); Albumin Level 2.8 g/dL (3.5-5.1); Alkaline Phosphatase 67 U/L (38-126); Anion Gap 7 mmol/L (8-16); Aspartate Amino Transferase 18 U/L (17-59); Bilirubin,Total 0.4 mg/dL (0.2-1.3); Calcium 8.7 mg/dL (8.4-10.2); Carbon Dioxide 25 mmol/L (22-30); Chloride 103 mmol/L (98-107); Estimated CRCL calculation 112 ml/min; Estimated Glomerular Filt Rate > 60; Glucose 126 mg/dL (75-110); Magnesium 1.4 mg/dL (1.6-2.3); Potassium 3.2 mmol/L (3.4-5.0); Sodium 135 mmol/L (137-145)
[2020-05-27] MEDS: AMPICILLIN SULB 1.5 GM/NS 50ML 1.5 GM/50 ML VIAL IVPB ×3 (05:56→17:40)
[2020-05-27] MEDS: CENTRAL LINE FLUSH 10 ML IV PUSH ×4 (05:57→21:00)
[2020-05-27 06:06] LABS: Blood Urea Nitrogen < 2 mg/dL (9-20)
[2020-05-27] MEDS: MAGNESIUM SULFATE 3GM/D5W100ML 3 GM/100 ML BAG IVPB (09:31)
[2020-05-27] MEDS: PANTOPRAZOLE SODIUM IV 40 MG VIAL IV PUSH (09:34)
[2020-05-27] MEDS: POTASSIUM CHLORIDE 20 MEQ PACKET (FOR LIQUID) 40 MEQ PO (09:34)
[2020-05-27] MEDS: ENOXAPARIN 40 MG/0.4 ML SYRINGE SUB-Q (09:35)
--- NOTE | 2020-05-27 09:45 | WPDINTPN ---
Progress Note: A&P Assessment and Plan (1) Acute respiratory failure with hypoxia and hypercarbia: Code(s): J96.01 - Acute respiratory failure with hypoxia; J96.02 - Acute respiratory failure with hypercapnia Status: Acute Assessment and Plan: Acute Respiratory failure secondary to recurrent aspiration pneumonia from tube feeds or secretions Continue full mechanical ventilation support to prevent hypoxemia/hypercarbia and end organ damage. ABG and PCXR reviewed, currently on 30% FiO2 peep of 5. Placed patient on PSV 14/5, will gradually drop it to 12/5 Low tidal volume ventilation strategy to prevent volutrauma Bronchodilators COVID-19 PCR negative (2) Severe sepsis: Code(s): A41.9 - Sepsis, unspecified organism; R65.20 - Severe sepsis without septic shock Status: Acute Assessment and Plan: Secondary to recurrent aspiration pneumonia and possible UTI Patient was hypotensive on presentation but blood pressure improved with IV fluid bolus. Central venous catheter was placed but patient has not needed vasopressor this time Lactic acid has normalized Continue to monitor (3) Septic shock: Code(s): A41.9 - Sepsis, unspecified organism; R65.21 - Severe sepsis with septic shock Status: Acute Assessment and Plan: Patient arrived from the ER hypotensive w/ BP of 77/44 mm Hg. He was treated with another 500 cc IV fluid bolus in the ICU and I placed a central line and ordered Levophed for vasopressor support. Source of sepsis appears to be pulmonary but may also be urinary. -Blood cultures are negative x2, urine cultures growing VRE -Unasyn for possible aspiration pneumonia -will discontinue vancomycin and start linezolid for VRE in the urine culture, infectious disease has been -DC IV fluids -repeat urine cultures -lactic acid has normalized to 0.8 (2.9 on admission) (4) Pneumonia: Qualifiers: Aspiration pneumonia type: unspecified Laterality: bilateral Lung location: unspecified part of lung Pneumonia type: aspiration pneumonia Qualified Code(s): J69.0 - Pneumonitis due to inhalation of food and vomit Code(s): J18.9 - Pneumonia, unspecified organism Status: Acute Assessment and Plan: See above (5) Abnormal urinalysis: Code(s): R82.90 - Unspecified abnormal findings in urine Status: Acute Assessment and Plan: Suspected to be UTI. Urine culture VRE, could be a contaminate. Continue IV antibiotics as above (6) Hyperkalemia: Code(s): E87.5 - Hyperkalemia Status: Acute Assessment and Plan: Resolved with IV fluid resuscitation Monitor (7) Suspected 2019 novel coronavirus infection: Code(s): Z20.828 - Contact with and (suspected) exposure to other viral communicable diseases Status: Acute Assessment and Plan: Patient has again been swab for COVID 19 in the ER. Continue droplet isolation. Continue supportive care. COVID-19 results pending. (8) Dysphagia: Qualifiers: Dysphagia type: unspecified Qualified Code(s): R13.10 - Dysphagia, unspecified Code(s): R13.10 - Dysphagia, unspecified Status: Chronic Assessment and Plan: NPO. Continue tube feeds (9) Encephalopathy chronic: Code(s): G93.49 - Other encephalopathy Status: Chronic Assessment and Plan: Head CT IMPRESSION: 1. No acute intracranial findings or interval change. 2. Severely dilated ventricular system out of proportion to sulci, NPH versus central atrophy. 3. Bifrontal and bitemporal encephalomalacia. Posttraumatic? Patient has hydrocephalus listed as doses on his chronic medical history. Details unknown at this time Hold all sedatives at this time Currently off all sedation Additional Plan DVT prophylaxis -Lovenox Stress ulcer prophylaxis - Protonix Nutrition -NPO Code Status - Full Code Total Critical Care Time - 32 minutes Due to a high probability of
[2020-05-27 11:30] LABS: Glucose Point of Care 102 (65-105)
--- NOTE | 2020-05-27 13:05 | PM.IMPN ---
Progress Note: A&P Assessment and Plan (1) Acute respiratory failure with hypoxia and hypercarbia: Code(s): J96.01 - Acute respiratory failure with hypoxia; J96.02 - Acute respiratory failure with hypercapnia Status: Acute Assessment and Plan: Patient has been admitted to ICU. Strict NPO. Felting Machine Operator has been consulted and appreciate his input. Acute respiratory failure is likely secondary to aspiration pneumonia. COVID negative on 05/24/20. Influenza negative. Continue ventilatory support and wean off when possible. Continue IV abx. Discussed at length with family yesterday. (2) Septic shock: Code(s): A41.9 - Sepsis, unspecified organism; R65.21 - Severe sepsis with septic shock Status: Acute Assessment and Plan: Lactic acid 2.9. WBC 18K with bandemia. Patient arrived from the ER hypotensive w/ BP of 77/44 mm Hg. He was treated with another 500 cc IV fluid bolus in the ICU and central line placed. Levophed ordered for vasopressor support but not required. Source of sepsis appears to be pulmonary. Repeat Lactic normal. BCx NGTD. UCx mentioned below. Continue IV antibiotics. (3) Pneumonia: Qualifiers: Aspiration pneumonia type: unspecified Laterality: bilateral Lung location: unspecified part of lung Pneumonia type: aspiration pneumonia Qualified Code(s): J69.0 - Pneumonitis due to inhalation of food and vomit Code(s): J18.9 - Pneumonia, unspecified organism Status: Acute Assessment and Plan: CXR reviewed today showing improvement in the Rt lung airspace disease. Probably aspiration pneumonia. BCx and Sputum Cx negative. Continue IV antibiotics. Continue bronchodilators. Wean vent as tolerated. May need surgical J-tube or Trach to try to prevent recurrent aspirations. Discussed with bar manager. (4) Abnormal urinalysis: Code(s): R82.90 - Unspecified abnormal findings in urine Status: Acute Assessment and Plan: UA noted. Urine culture growing VRE but 10-49K; consider contaminate. Blood cultures no growth to date and sputum negative. Linezolid stopped. Continue Unasyn for aspiration (5) Leukocytosis: Qualifiers: Leukocytosis type: unspecified Qualified Code(s): D72.829 - Elevated white blood cell count, unspecified Code(s): D72.829 - Elevated white blood cell count, unspecified Status: Acute Assessment and Plan: Secondary to severe sepsis and pneumonia. White count normal now. (6) Dysphagia: Qualifiers: Dysphagia type: unspecified Qualified Code(s): R13.10 - Dysphagia, unspecified Code(s): R13.10 - Dysphagia, unspecified Status: Chronic Assessment and Plan: Chronic with GTube in place. NPO. Toelrating tube feeds. (7) Encephalopathy chronic: Code(s): G93.49 - Other encephalopathy Status: Chronic Assessment and Plan: Patient with acute on chronic encephalopathy. Acute process related to above. 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 More alert now. (8) Anemia: Code(s): D64.9 - Anemia, unspecified Status: Acute Assessment and Plan: Appears to be chronic. Was stable last admission in the 8 range. Hemoglobin 7.4 today. Follow. (9) DVT prophylaxis: Code(s): Z29.9 - Encounter for prophylactic measures, unspecified Status: Acute Assessment and Plan: Lovenox Subjective Date/time seen: 05/27/20 13:05 Interval history: Date of service 05/27 60yo male with HTN, hydrocephalus and dementia who returns due to acute respiratory failure from recurrent aspiration. Patient intubated. He is alert. No issues today per RN. Minimal secretions. UCx growing VRE but felt to be a colonizer with no plans for abx at this time. TF started. Having diarrhea now. Review of Systems Review of Systems: ROS unobtainab
[2020-05-27 17:46] LABS: Glucose Point of Care 105 (65-105)
[2020-05-27] MEDS: DORNASE ALFA INH SOLN 1 MG/ML 2.5 ML AMP 2.5 MG INHALATION (19:40)
[2020-05-28] VITALS (26 sets, daily range): BP systolic 119–150; BP diastolic 75–90; PULSE 86–114; RESP 15–28; TEMP 36.4–37.1; O2SAT 100
[2020-05-28 01:06] LABS: Glucose Point of Care 100 (65-105)
[2020-05-28 03:44] LABS: Alveolar/Arterial O2 Gradient 62.9 mmHg; Base Excess ABG 0.2 mEq/l (+/-2.0); Carboxyhemoglobin 0.3 % THb (0-2.0); Fractional Inspired Oxygen 30 %; Methemoglobin ABG 0.2 %THb (0-1.5); Oxygen Saturation ABG 98.2 % (95.0-100.0); Oxyhemoglobin 97.2 % THb (90.0-100.0); PCO2 ABG 35.1 mmHg (35.0-45.0); PO2 ABG 109.8 mmHg (80.0-100.0); PO2 FiO2 Ratio Arterial Blood 3.66 %; Reduced Hemoglobin 2.3 %THb (0-5.0); Total Hemoglobin 9.4 g/dL (12.0-18.0); pH ABG 7.452 (7.350-7.450)
[2020-05-28 03:45] LABS: Arterial Blood Gas PEEP 5 cmH2O; Arterial Blood Gas Pressure Support 14 cmH2O; Arterial Blood Gas Vent Mode SPONTANEOUS; Device VENTILATOR; Modified Allen's Test Pass; Site Drawn RIGHT RADIAL
[2020-05-28] MEDS: LINEZOLID 600 MG/300 ML 600 MG/300 ML SOLN 300 MG IVPB (03:50)
[2020-05-28 04:30] LABS: Hemoglobin 8.2 g/dL (14.0-18.0); Mean Corpuscular HGB Conc 31.5 g/dl (32-36); Mean Corpuscular Hemoglobin 24.6 pg (26-34); Mean Corpuscular Volume 77.8 fl (80-100); Mean Platelet Volume 9.6 fl (7.4-10.4); Platelet Count Result 337 k/mm3 (150-375); Red Blood Count 3.34 M/mm3 (4.6-6.20); Red Cell Distribution Width 17.1 % (11.5-14.5); White Blood Count 6.1 K/mm3 (4.5-10.0)
[2020-05-28 04:44] LABS: Alanine Aminotransferase 11 U/L (4-50); Albumin Level 3.2 g/dL (3.5-5.1); Alkaline Phosphatase 73 U/L (38-126); Anion Gap 7 mmol/L (8-16); Aspartate Amino Transferase 16 U/L (17-59); Bilirubin,Total 0.4 mg/dL (0.2-1.3); Blood Urea Nitrogen 2 mg/dL (9-20); Calcium 8.9 mg/dL (8.4-10.2); Carbon Dioxide 25 mmol/L (22-30); Chloride 102 mmol/L (98-107); Estimated CRCL calculation 111 ml/min; Estimated Glomerular Filt Rate > 60; Glucose 137 mg/dL (75-110); Magnesium 1.5 mg/dL (1.6-2.3); Potassium 3.6 mmol/L (3.4-5.0); Sodium 134 mmol/L (137-145)
[2020-05-28] MEDS: DORNASE ALFA INH SOLN 1 MG/ML 2.5 ML AMP 2.5 MG INHALATION ×2 (07:33→20:22)
[2020-05-28] MEDS: AMPICILLIN SULB 1.5 GM/NS 50ML 1.5 GM/50 ML VIAL IVPB ×5 (08:20→23:17)
[2020-05-28] MEDS: MAGNESIUM SULFATE 3GM/D5W100ML 3 GM/100 ML BAG IVPB (08:20)
[2020-05-28] MEDS: POTASSIUM CHLORIDE 20 MEQ PACKET (FOR LIQUID) 40 MEQ FEED TUBE (08:21)
[2020-05-28] MEDS: ENOXAPARIN 40 MG/0.4 ML SYRINGE SUB-Q (08:21)
[2020-05-28] MEDS: CENTRAL LINE FLUSH 10 ML IV PUSH ×4 (08:21→20:24)
[2020-05-28] MEDS: FLUCONAZOLE 100 MG TABLET 200 MG FEED TUBE (08:22)
[2020-05-28] MEDS: dilTIAZem HCL 60 MG TABLET FEED TUBE ×4 (08:22→23:16)
[2020-05-28] MEDS: METOCLOPRAMIDE HCL 5 MG TABLET FEED TUBE ×4 (08:22→23:16)
[2020-05-28] MEDS: FAMOTIDINE 20 MG TABLET FEED TUBE ×2 (08:22→17:52)
[2020-05-28] MEDS: FOLIC ACID 1 MG TABLET FEED TUBE (08:22)
[2020-05-28] MEDS: busPIRone HCL 10 MG TABLET FEED TUBE ×3 (08:22→17:51)
[2020-05-28 08:31] LABS: Glucose Point of Care 96 (65-105)
--- NOTE | 2020-05-28 10:56 | WPDINTPN ---
Progress Note: A&P Assessment and Plan (1) Aspiration into airway: Code(s): T17.908A - Unspecified foreign body in respiratory tract, part unspecified causing other injury, initial encounter Status: Acute Assessment and Plan: Patient has a PEG tube, bedside RN suctioning tube feeds from his ETT likely secondary to aspiration around the ETT. -will have surgery evaluate the patient for possibility of a J-tube (2) Acute respiratory failure with hypoxia and hypercarbia: Code(s): J96.01 - Acute respiratory failure with hypoxia; J96.02 - Acute respiratory failure with hypercapnia Status: Acute Assessment and Plan: Acute Respiratory failure secondary to recurrent aspiration pneumonia from tube feeds or secretions Continue full mechanical ventilation support to prevent hypo -tolerated PSV 14/5 all day on 05/27 until or a.m. in the morning on 05/28. Patient was placed on CMV mode of ventilation early this morning. Patient looks comfortable, will put him back on PSV 12/5 and evaluate. Low tidal volume ventilation strategy to prevent volutrauma Bronchodilators COVID-19 PCR negative -bedside RN did suction tube feeds through his ETT, likely secondary to aspiration around the ETT. Tube feeds currently on hold (3) Severe sepsis: Code(s): A41.9 - Sepsis, unspecified organism; R65.20 - Severe sepsis without septic shock Status: Acute Assessment and Plan: Secondary to recurrent aspiration pneumonia and possible UTI Patient was hypotensive on presentation but blood pressure improved with IV fluid bolus. Central venous catheter was placed but patient has not needed vasopressor this time Lactic acid has normalized Continue to monitor (4) Septic shock: Code(s): A41.9 - Sepsis, unspecified organism; R65.21 - Severe sepsis with septic shock Status: Acute Assessment and Plan: Patient arrived from the ER hypotensive w/ BP of 77/44 mm Hg. He was treated with another 500 cc IV fluid bolus in the ICU and I placed a central line and ordered Levophed for vasopressor support. Source of sepsis appears to be pulmonary but may also be urinary. -Blood cultures are negative x2, urine cultures growing VRE -Unasyn for possible aspiration pneumonia -will discontinue vancomycin, discuss with Infectious Disease, hold linezolid since patient is afebrile, WBC count is normal, this could be colonization -DC IV fluids -repeat urine cultures -lactic acid has normalized to 0.8 (2.9 on admission) (5) Pneumonia: Qualifiers: Aspiration pneumonia type: unspecified Laterality: bilateral Lung location: unspecified part of lung Pneumonia type: aspiration pneumonia Qualified Code(s): J69.0 - Pneumonitis due to inhalation of food and vomit Code(s): J18.9 - Pneumonia, unspecified organism Status: Acute Assessment and Plan: See above (6) Abnormal urinalysis: Code(s): R82.90 - Unspecified abnormal findings in urine Status: Acute Assessment and Plan: Suspected to be UTI. Urine culture VRE, could be a contaminate. Continue IV antibiotics as above (7) Hyperkalemia: Code(s): E87.5 - Hyperkalemia Status: Acute Assessment and Plan: Resolved with IV fluid resuscitation Monitor (8) Suspected 2019 novel coronavirus infection: Code(s): Z20.828 - Contact with and (suspected) exposure to other viral communicable diseases Status: Acute Assessment and Plan: SARS-CoV-2 PCR is negative as of 05/24 -patient off all precautions and isolation (9) Dysphagia: Qualifiers: Dysphagia type: unspecified Qualified Code(s): R13.10 - Dysphagia, unspecified Code(s): R13.10 - Dysphagia, unspecified Status: Chronic Assessment and Plan: NPO. Continue tube feeds (10) Encephalopathy chronic: Code(s): G93.49 - Other encephalopathy Status: Chronic Assessment and Plan: Head CT IMPRESSION:
--- NOTE | 2020-05-28 11:33 | PCDIET ---
ICU Rounding Note: Tube feedings held due to suctioning of tube feeding formula from ETT. Reglan added, and surgery consulted for possible j-tube placement. Last recorded weight is 49.7kg which is decreased from last review. -I/O. Bowel Motility: Last documented BM on 05/27/20 x 2. Labs Reviewed: Hgb (8.2), Hct (26.0), Glu (137), BUN (2), Cr (0.4), Na (134), Alb (3.2) Meds Noted: Unasyn, Folic Acid, Xopenex, Levophed, Reglan, Pepcid, Diflucan, Novolog, Magnesium Sulfate, KCl Additional Notes: Right foot with deep tissue area. Following daily in ICU rounds. Assessing/reassessing every Thursday/Thursday.
--- NOTE | 2020-05-28 11:41 | PM.IMPN ---
Progress Note: A&P Assessment and Plan (1) Acute respiratory failure with hypoxia and hypercarbia: Code(s): J96.01 - Acute respiratory failure with hypoxia; J96.02 - Acute respiratory failure with hypercapnia Status: Acute Assessment and Plan: Patient was found to have acute respiratory distress with hypoxia at the [place]. Patient intubated in the ED. Strict NPO. On Car Supervisor has been consulted and appreciate his input. Acute respiratory failure is likely secondary to aspiration pneumonia. COVID negative on 05/24/20. Influenza negative. Suspect this is a chronic problem related to reflux. He was just here for similar presentation. Continue ventilatory support and wean off when possible. Continue IV abx. Discussed with jig operator. Plan to discuss with surgery about placing a J-tube to try to prevent recurrence. (2) Septic shock: Code(s): A41.9 - Sepsis, unspecified organism; R65.21 - Severe sepsis with septic shock Status: Acute Assessment and Plan: Lactic acid 2.9. WBC 18K with bandemia. Patient arrived from the ER hypotensive w/ BP of 77/44 mm Hg. He was treated with another 500 cc IV fluid bolus in the ICU and central line placed. Levophed ordered for vasopressor support but not required. Source of sepsis appears to be pulmonary. Repeat Lactic normal. BCx NGTD. UCx mentioned below. Continue IV antibiotics. (3) Pneumonia: Qualifiers: Aspiration pneumonia type: unspecified Laterality: bilateral Lung location: unspecified part of lung Pneumonia type: aspiration pneumonia Qualified Code(s): J69.0 - Pneumonitis due to inhalation of food and vomit Code(s): J18.9 - Pneumonia, unspecified organism Status: Acute Assessment and Plan: CXR reviewed today showing improvement. Probably aspiration pneumonia. BCx and Sputum Cx negative. Continue IV antibiotics. Continue bronchodilators. Wean vent as tolerated. Discuss with surgery about a J-tube; consider Trach as well if continues to have problems with tube feedings. Discussed with jig operator. (4) Abnormal urinalysis: Code(s): R82.90 - Unspecified abnormal findings in urine Status: Acute Assessment and Plan: UA noted. Urine culture growing VRE but 10-49K; felt to be a contaminate. Blood cultures no growth to date and sputum negative. Continue IV antibiotics for aspiration. (5) Leukocytosis: Qualifiers: Leukocytosis type: unspecified Qualified Code(s): D72.829 - Elevated white blood cell count, unspecified Code(s): D72.829 - Elevated white blood cell count, unspecified Status: Acute Assessment and Plan: Secondary to severe sepsis and pneumonia. White count normal now. (6) Dysphagia: Qualifiers: Dysphagia type: unspecified Qualified Code(s): R13.10 - Dysphagia, unspecified Code(s): R13.10 - Dysphagia, unspecified Status: Chronic Assessment and Plan: Chronic with GTube in place. Reglan resumed. NPO. Off TF now. (7) Encephalopathy chronic: Code(s): G93.49 - Other encephalopathy Status: Chronic Assessment and Plan: Patient with acute on chronic encephalopathy. Acute process related to above. 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 More alert now. (8) Anemia: Code(s): D64.9 - Anemia, unspecified Status: Acute Assessment and Plan: Appears to be chronic. Was stable last admission in the 8 range. Hemoglobin 8.2 today. Follow. (9) DVT prophylaxis: Code(s): Z29.9 - Encounter for prophylactic measures, unspecified Status: Acute Assessment and Plan: Lovenox Subjective Date/time seen: 05/28/20 11:41 Interval history: Date of service 05/28 60yo male with HTN, hydrocephalus and dementia who returns due to acute respiratory failure from recurrent aspiration. Patient intubat
--- NOTE | 2020-05-28 12:54 | WPDINFPN2 ---
Progress Note: A&P Assessment and Plan (1) Aspiration into airway: Code(s): T17.908A - Unspecified foreign body in respiratory tract, part unspecified causing other injury, initial encounter Status: Acute Assessment and Plan: 1. Fever and respiratory distress, suspect aspiration of G tube feeding, vs (more likely) poor airway clearance of tracheal secretions 2. Chronic Murphy with bacteriuria, no urine infection present REC AmpSulbactam #5, continue. Subjective Date/time seen: 05/28/20 12:54 Objective Data Vital Signs Vital Signs: Vital Signs - 24 hr 05/27/20 13:00 05/27/20 13:48 05/27/20 13:58 Temperature 36.7 C Pulse Rate 105 H 106 H 102 H Respiratory Rate 20 18 18 Blood Pressure 141/86 H Pulse Oximetry 93 100 05/27/20 15:03 05/27/20 17:06 05/27/20 17:46 Temperature 36.7 C 37.1 C Pulse Rate 111 H 104 H 103 H Respiratory Rate 20 20 Blood Pressure 132/81 136/83 Pulse Oximetry 100 100 100 05/27/20 19:40 05/27/20 19:50 05/27/20 20:00 Temperature 37.2 C Pulse Rate 105 H 110 H 108 H Respiratory Rate 30 H 26 H 23 H Blood Pressure 143/91 H Pulse Oximetry 100 94 05/27/20 22:00 05/27/20 23:00 05/28/20 00:00 Temperature 37.1 C Pulse Rate 99 102 H 112 H Respiratory Rate 13 22 H Blood Pressure 144/90 H 142/89 H Pulse Oximetry 100 100 100 05/28/20 02:00 05/28/20 02:10 05/28/20 04:00 Temperature 37.1 C Pulse Rate 95 106 H 114 H Respiratory Rate 22 H 26 H Blood Pressure 138/87 150/86 H Pulse Oximetry 100 100 100 05/28/20 05:00 05/28/20 06:00 05/28/20 07:30 Temperature Pulse Rate 110 H 105 H 100 Respiratory Rate 20 20 Blood Pressure 119/81 Pulse Oximetry 100 100 100 05/28/20 07:40 05/28/20 08:00 05/28/20 09:52 Temperature 36.4 C Pulse Rate 100 105 H 102 H Respiratory Rate 20 20 Blood Pressure 138/90 Pulse Oximetry 100 05/28/20 10:00 05/28/20 10:31 05/28/20 11:29 Temperature Pulse Rate 101 H 99 100 Respiratory Rate 16 19 Blood Pressure 120/79 Pulse Oximetry 100 100 100 05/28/20 12:00 Temperature 36.4 C L Pulse Rate 99 Respiratory Rate 17 Blood Pressure 136/87 Pulse Oximetry 100 Intake/Output Intake/Output: Intake & Output 05/25/20 05/26/20 05/27/20 05/28/20 23:59 23:59 23:59 23:59 Intake Total 2650 3050 1463 549 Output Total 900 1825 3600 700 Balance 6670 1225 -2137 -151 Meds/Results Medications: Active Medications Generic Name Dose Route Start Last Admin Trade Name Freq PRN Reason Stop Dose Admin Buspirone HCl 10 mg 05/28/20 09:00 05/28/20 12:49 Buspirone Hcl 10 Mg Tablet FEED TUBE 10 mg TID JERAMIE Administration Dextrose 12.5 gm 05/24/20 13:39 05/26/20 05:23 Dextrose 50% 25 Gm/50 Ml Syringe IV PUSH 12.5 gm PRN PRN Administration Hypoglycemia Protocol Diltiazem HCl 60 mg 05/28/20 07:33 05/28/20 12:48 Diltiazem Hcl 60 Mg Tablet FEED TUBE 60 mg Q6HR JERAMIE Administration Dornase Demetris 2.5 mg 05/27/20 08:00 05/28/20 07:33 Dornase Demetris Inh Soln 1 Mg/Ml 2.5 Ml Amp INHALATION 2.5 mg Q12HRT JERAMIE Administration Enoxaparin Sodium 40 mg 05/24/20 09:00 05/28/20 08:21 Enoxaparin 40 Mg/0.4 Ml Syringe SUB-Q 40 mg DAILY JERAMIE Administration Famotidine 20 mg 05/28/20 09:00 05/28/20 08:22 Famotidine 20 Mg Tablet FEED TUBE 20 mg BID JERAMIE Administration Folic Acid 1 mg 05/28/20 09:00 05/28/20 08:22 Folic Acid 1 Mg Tablet FEED TUBE 1 mg DAILY JERAMIE Administration Glucagon 1 mg 05/24/20 13:39 Glucagon For Inj 1 Mg Vial IM PRN PRN Hypoglycemia Protocol Glucose 15 gm 05/24/20 13:39 Glucose Oral Gel 15 Gm Of Glucse In 37.5 Gm Tube PO PRN PRN Hypoglycemia Protocol Ampicillin Sodium/Sulbactam Sodium 1.5 gm in 50 mls @ 100 mls/hr 05/24/20 07:00 05/28/20 12:47 Unasyn 1.5 Gm/Ns 50 Ml IVPB 100 mls/hr Q6HR JERAMIE Administration Norepinephrine Bitartrate 8 mg in 250 mls @ 9.375 mls/hr 05/24/20 05
[2020-05-28 13:10] LABS: Glucose Point of Care 96 (65-105)
--- NOTE | 2020-05-28 14:30 | PM.CNGS ---
Assessment and Plan Assessment and plan (1) Aspiration into airway: Code(s): T17.908A - Unspecified foreign body in respiratory tract, part unspecified causing other injury, initial encounter Status: Acute Assessment and Plan: The patient has had multiple recurrent episodes of aspiration pneumonia. He is currently given tube feedings through a G-tube for nutrition. Our service has been consulted to evaluate the patient for placement of a jejunostomy tube to feed the patient and hopefully prevent further issues with aspiration. I have discussed the patient's case with Dr. Sellers. We will keep the patient NPO, with tube feedings held, and schedule the patient for open jejunostomy tube placement tomorrow in the OR. Dr. Sellers will discuss surgery with the patient's family prior to proceeding. Thank you for allowing us to see the patient in consultation. (2) Acute respiratory failure with hypoxia and hypercarbia: Code(s): J96.01 - Acute respiratory failure with hypoxia; J96.02 - Acute respiratory failure with hypercapnia Status: Acute Assessment and Plan: Intubated in the ICU. COVID negative 05/24/20. Management per Area Mechanic. (3) Septic shock: Code(s): A41.9 - Sepsis, unspecified organism; R65.21 - Severe sepsis with septic shock Status: Acute Assessment and Plan: Secondary to pulmonary source. Sputum cx negative. Blood cx NGTD. No vasopressor support needed. Continue IV abx. (4) Pneumonia: Qualifiers: Aspiration pneumonia type: unspecified Laterality: bilateral Lung location: unspecified part of lung Pneumonia type: aspiration pneumonia Qualified Code(s): J69.0 - Pneumonitis due to inhalation of food and vomit Code(s): J18.9 - Pneumonia, unspecified organism Status: Acute Assessment and Plan: Suspect aspiration pneumonia. Suspected to have issues with aspiration from the G-tube tube feedings causing recurrent aspiration pneumonia. Sputum cultures negative. Continue IV abx per primary team and ID. (5) Encephalopathy chronic: Code(s): G93.49 - Other encephalopathy Status: Chronic Assessment and Plan: Dysphagia and likely difficulty clearing airway secretions. Receives tube feeding for nutrition through a gastrostomy tube. See plan above. (6) Hypertension: Qualifiers: Hypertension type: unspecified Qualified Code(s): I10 - Essential (primary) hypertension Code(s): I10 - Essential (primary) hypertension Status: Chronic Assessment and Plan: Management per Hospitalist. (7) Abnormal urinalysis: Code(s): R82.90 - Unspecified abnormal findings in urine Status: Acute Assessment and Plan: Chronic amador with bacteruria. Urine culture grew Vanco Res Enterococcus faecium. ID consulted, continue abx per their recommendations. (8) Anemia: Code(s): D64.9 - Anemia, unspecified Status: Acute History of Present Illness Consult details Consult date: 05/28/20 Reason for consult: other (Requesting placement of jejunostomy tube due to recurrent aspiration pneumonia) Requesting physician: Dipesh Vera MD Narrative: This is a 60-year-old male with a history of hydrocephalus who was brought in by EMS from the [facility] for hypoxia and acute respiratory distress. The patient has chronic encephalomalacia and is intubated in the ICU, therefore he is unable to provide a history and I obtained his information from the electronic medical record. He was recently discharged from our hospital after being admitted from 05/09/20 through 05/22/20 for acute respiratory failure, aspiration pneumonia, and shock. When EMS evaluated the patient, he was hypoxic and placed on a non-rebreather mask with oxygen saturation of 85% en route to the hospital. In the ER, he was found to be febrile, tachycardic, and tachypneic. He was intubated in the ER and received IV fluid resuscitation. Urinalysis was grossly abnorm
[2020-05-28 18:03] LABS: Glucose Point of Care 80 (65-105)
--- NOTE | 2020-05-28 18:58 | CONS_ITS ---
DATE OF CONSULTATION: 05/28/2020 REASON FOR CONSULTATION: Bacteriuria. HISTORY OF PRESENT ILLNESS: This is a 60-year-old male who cannot provide any history. He has chronic encephalomalacia and encephalopathy. He was here in the hospital earlier in the month at which time blood cultures were all no growth. He also had a C difficile assay, which was negative, collected on the . He was discharged 1 day prior to his present admission, but [facility] with acute onset of dyspnea. He also had a fever at his [facility] up to 38.2. He was given ampicillin, sulbactam, and consultation requested. He has a chronic Murphy catheter and I reviewed the nurse's notes from the [facility], which indicated no malfunction of the catheter nor has any been found here. He has had no manipulation of his urologic tract recently. He also was given linezolid, now stopped and consultation requested. He has not required any surgical intervention. ALLERGIES: NONE KNOWN. PRESENT MEDICATIONS: Extensive home medication list reviewed. He was on fluconazole prior to admission for 1 month, no documentation as to indication. He also received azithromycin brief course in April at [facility]. He is on no immunosuppressants. HABITS: No tobacco or alcohol, but previous alcohol to excess. PAST MEDICAL HISTORY: Prior tracheostomy, which is now closed, PAT, hypertension, hydrocephalus, dysphagia, COPD, anemia, and he carries a diagnosis of anxiety disorder as well. FAMILY HISTORY: Seizure disorder, hypertension, uterine cancer. SOCIAL HISTORY: Has a sister, is a pen[facility]iary resident. No family at the bedside. REVIEW OF SYSTEMS: He is on the ventilator and at baseline, nonverbal, hence 14-point review attempted, but not obtainable. PHYSICAL EXAMINATION: GENERAL: This is a cachectic male in mild respiratory distress. No pressors since readmission. VITAL SIGNS: He had a temperature shortly after arrival of 39.4, up to 40.1 on the morning of the , has been consistently afebrile since then. 136/87, no pressors. 99, 17, 100%. SKIN: Warm and dry. No generalized rashes. No ulcers. EENT: The conjunctivae are clear. The oropharynx, oral mucosa dry. He will not cooperate for full exam. Paranasal sinuses without erythema, edema or tenderness. NECK: Old tracheostomy scar. There is no meningismus. LUNGS: Diminished breath sounds. Breath sounds are vesicular. Clear to percussion. CHEST: He has no indwelling vascular devices. CARDIAC: Regular rate and rhythm. No murmurs or gallops. ABDOMEN: Firm. G-tube in place. No evidence of cellulitis or tract infection. He has normal bowel sounds. GENITOURINARY: Indwelling Murphy catheter draining clear yellow urine. No sediment and no blood. EXTREMITIES: Marked muscle wasting. No clubbing, cyanosis, or edema. He has no venous varicosities and no splinter hemorrhages. LABORATORY DATA: Blood cultures are no growth after 4 days incubation. Sputum showed normal anabela, scant. Repeat urine culture in process. Original one shows VRE. Other labs with an original white count of 16.7, has declined since then, now 6.1; hemoglobin 8.2; platelets are 337. No differential done recently, earlier showed a left shift. Blood gases 7.45, 35, 110 on the noted ventilator settings. He has mild hyponatremia. BUN, creatinine, both low. Glucose variable, but generally normal. Liver function tests low to normal. CRP was 5. His urinalysis with blood. Coronavirus assay nonreactive. RADIOLOGY: Chest x-ray on readmission, right-sided airspace disease. ASSESSMENT: 1. Bacteriuria with a chronic Murphy, no urinary tract infections present. 2. Fever, leukocytosis, respiratory distr
[2020-05-29] VITALS (24 sets, daily range): BP systolic 119–142; BP diastolic 74–92; PULSE 88–103; RESP 15–24; TEMP 36.5–36.9; O2SAT 100
[2020-05-29 00:30] LABS: Glucose Point of Care 79 (65-105)
[2020-05-29 04:30] LABS: Alveolar/Arterial O2 Gradient 58.2 mmHg; Base Excess ABG -1.2 mEq/l (+/-2.0); Carboxyhemoglobin 0.3 % THb (0-2.0); Fractional Inspired Oxygen 30 %; HCO3 ABG 22.6 mEq/l (22.0-26.0); Methemoglobin ABG 0.4 %THb (0-1.5); Oxygen Content ABG 13.8 %vol (16.0-22.0); Oxygen Saturation ABG 98.4 % (95.0-100.0); Oxyhemoglobin 97.4 % THb (90.0-100.0); PCO2 ABG 34.3 mmHg (35.0-45.0); PO2 ABG 115.4 mmHg (80.0-100.0); PO2 FiO2 Ratio Arterial Blood 3.85 %; Reduced Hemoglobin 1.9 %THb (0-5.0); Total Hemoglobin 9.9 g/dL (12.0-18.0); pH ABG 7.437 (7.350-7.450)
[2020-05-29 04:31] LABS: Device VENTILATOR; Modified Allen's Test Pass; Site Drawn RIGHT RADIAL
[2020-05-29 04:32] LABS: Arterial Blood Gas PEEP 5 cmH2O; Arterial Blood Gas Pressure Support 12 cmH2O; Arterial Blood Gas Vent Mode ASV
[2020-05-29] MEDS: AMPICILLIN SULB 1.5 GM/NS 50ML 1.5 GM/50 ML VIAL IVPB ×4 (05:28→23:15)
[2020-05-29] MEDS: CENTRAL LINE FLUSH 10 ML IV PUSH ×4 (05:31→19:53)
[2020-05-29] MEDS: METOCLOPRAMIDE HCL 5 MG TABLET FEED TUBE ×4 (05:31→23:13)
[2020-05-29] MEDS: dilTIAZem HCL 60 MG TABLET FEED TUBE ×4 (05:31→23:12)
[2020-05-29 05:33] LABS: Hematocrit 27.1 % (42.0-52.0); Hemoglobin 8.5 g/dL (14.0-18.0); Mean Corpuscular HGB Conc 31.4 g/dl (32-36); Mean Corpuscular Hemoglobin 24.1 pg (26-34); Mean Corpuscular Volume 76.8 fl (80-100); Mean Platelet Volume 9.2 fl (7.4-10.4); Platelet Count Result 362 k/mm3 (150-375); Red Blood Count 3.53 M/mm3 (4.6-6.20); White Blood Count 6.3 K/mm3 (4.5-10.0)
[2020-05-29 05:52] LABS: Alanine Aminotransferase 10 U/L (4-50); Albumin Level 3.3 g/dL (3.5-5.1); Alkaline Phosphatase 71 U/L (38-126); Anion Gap 11 mmol/L (8-16); Aspartate Amino Transferase 18 U/L (17-59); Bilirubin,Total 0.5 mg/dL (0.2-1.3); Blood Urea Nitrogen 3 mg/dL (9-20); Calcium 9.1 mg/dL (8.4-10.2); Carbon Dioxide 26 mmol/L (22-30); Chloride 98 mmol/L (98-107); Estimated CRCL calculation 110 ml/min; Estimated Glomerular Filt Rate > 60; Glucose 76 mg/dL (75-110); Magnesium 1.6 mg/dL (1.6-2.3); Potassium 4.1 mmol/L (3.4-5.0); Sodium 135 mmol/L (137-145)
[2020-05-29] MEDS: DEXTROSE 5%/0.9% SOD CHL 1,000 ML 75 ML IV CONT ×2 (07:30→19:54)
--- NOTE | 2020-05-29 08:16 | WPDANESEPPF ---
Anes - Initial Pre Proc Eval Procedure: Operation Date: 05/29/20 12:00 Proposed Procedures p Insertion Jejunostomy Tube - Chanda Sellers MD Date/Time: 05/29/20 08:16 Surgeon: Alexander Leigh MD Pre Op Diagnosis: Respiratory failure/Sepsis/Aspiration Pneumonia/ut Patient Data Age: 60 Gender: M Height: 1.65 m Weight: 49.5 kg Last Vital Signs Temp 36.9 C 05/29/20 04:00 Pulse 92 05/29/20 07:58 Resp 15 05/29/20 07:58 BP 130/81 05/29/20 06:00 Pulse Ox 100 05/29/20 07:53 Allergies Allergy/AdvReac Type Severity Reaction Status Date / Time No Known Allergies Allergy Verified 05/09/20 08:39 Home Medications Medication Instructions Recorded Confirmed Type ipratropium-albuterol 3 ml INHALATION QID PRN 05/09/20 05/24/20 History buspirone 10 mg FEEDING TUBE TID #90 tablet 05/22/20 05/24/20 Rx diltiazem HCl 60 mg FEEDING TUBE Q6HR #120 tablet 05/22/20 05/24/20 Rx famotidine 20 mg FEEDING TUBE BID #60 tablet 05/22/20 05/24/20 Rx folic acid 1 mg FEEDING TUBE DAILY #30 tablet 05/22/20 05/24/20 Rx lorazepam [Ativan] 0.25 mg FEEDING TUBE HS PRN #20 05/22/20 05/24/20 Rx tablet metoclopramide HCl 5 mg FEEDING TUBE ACHS #120 tablet 05/22/20 05/24/20 Rx acetaminophen 650 mg PO Q6H PRN 05/24/20 05/24/20 History fluconazole [Diflucan] 200 mg FEEDING TUBE DAILY 05/24/20 05/24/20 History Laboratory Tests 05/28/20 05/28/20 05/28/20 08:18 12:48 17:55 WBC RBC Hgb Hct MCV MCH MCHC RDW Plt Count MPV Puncture Site ABG pH ABG pCO2 ABG pO2 ABG PO2/FiO2 Ratio ABG HCO3 ABG O2 Saturation ABG O2 Content ABG Base Excess A-a Gradient Oxyhemoglobin Carboxyhemoglobin Methemoglobin Reduced Hemoglobin Total Hemoglobin O2 Delivery Device O2 Liters/Min Minute Volume Vent Rate Vent Mode FiO2 Tidal Volume PEEP Peak Inspir Pressure Pressure Support Sodium Potassium Chloride Carbon Dioxide Anion Gap BUN Creatinine Estim Creat Clear Calc Estimated GFR Glucose POC Capillary Glucose 96 mg/dl mg/dl 96 mg/dl mg/dl 80 mg/dl mg/dl (65-105) (65-105) (65-105) Calcium Magnesium Total Bilirubin AST ALT Alkaline Phosphatase Total Protein Albumin 05/28/20 05/29/20 05/29/20 23:15 04:09 05:24 WBC 6.3 K/mm3 K/mm3 (4.5-10.0) RBC 3.53 M/mm3 L M/mm3 (4.6-6.20) Hgb 8.5 g/dL L g/dL (14.0-18.0) Hct 27.1 % L % (42.0-52.0) MCV 76.8 fl L fl (80-100) MCH 24.1 pg L pg (26-34) MCHC 31.4 g/dl L g/dl (32-36) RDW 17.0 % H % (11.5-14.5) Plt Count 362 k/mm3 k/mm3 (150-375) MPV 9.2 fl fl (7.4-10.4) Puncture Site Right radial ABG pH 7.437 (7.350-7.450) ABG pCO2 34.3 mmHg L mmHg (35.0-45.0) ABG pO2 115.4 mmHg H mmHg (80.0-100.0) ABG PO2/FiO2 Ratio 3.85 % % ABG HCO3 22.6 mEq/l mEq/l (22.0-26.0) ABG O2 Saturation 98.4 % % (95.0-100.0) ABG O2 Content 13.8 %vol L %vol (16.0-22.0) ABG Base Excess -1.2 mEq/l mEq/l (+/-2.0) A-a Gradient 58.2 mmHg mmHg Oxyhemoglobin 97.4 % THb % THb (90.0-100.0) Carboxyhemoglobin 0.3 % THb % THb (0-2.0) Methemoglobin 0.4 %THb %THb (0-1.5) Reduced Hemoglobin 1.9 %THb %THb (0-5.0) T
[2020-05-29] MEDS: busPIRone HCL 10 MG TABLET FEED TUBE ×3 (08:23→16:26)
[2020-05-29] MEDS: FAMOTIDINE 20 MG TABLET FEED TUBE ×2 (08:23→16:26)
[2020-05-29] MEDS: FOLIC ACID 1 MG TABLET FEED TUBE (08:24)
[2020-05-29 11:20] LABS: Glucose Point of Care 92 (65-105)
--- NOTE | 2020-05-29 11:30 | PCDIET ---
Nutrition Follow-Up Complete: Nutrition Diagnosis: Inadequate oral intake related to inability to feed orally as evidence by need for mechanical ventilation. Nutrition Goal: Total intake will meet estimated nutrition needs. Goal in progress. Patient NPO for open jejunostomy today. Suggested Jevity 1.2 at 50mL/hr goal once able to resume feedings. Once extubated, will likely recommend higher rate to promote weight gain. Last recorded weight is 49.5 kg which is stable with last review. Bowel Motility: BM x 1 on 05/28/20. Labs Reviewed: Hgb (8.5), Hct (27.1), BUN (3), Cr (0.4), Na (135), Alb (3.3) Meds Noted: D5NS at 75mL/hr, Unasyn, Pepcid, Folic Acid, Xopenex, Reglan, Levophed Additional Notes: Right hip maceration; stage I to right foot. Will continue to monitor with same goal. Nutrition Monitoring and Evaluation: Follow up every Thursday/Thursday.
--- NOTE | 2020-05-29 11:42 | WPDINTPN ---
Progress Note: A&P Assessment and Plan (1) Aspiration into airway: Code(s): T17.908A - Unspecified foreign body in respiratory tract, part unspecified causing other injury, initial encounter Status: Acute Assessment and Plan: Patient has a PEG tube, bedside RN suctioning tube feeds from his ETT likely secondary to aspiration around the ETT. -plan for jejunostomy tube today (05/29/2020) (2) Acute respiratory failure with hypoxia and hypercarbia: Code(s): J96.01 - Acute respiratory failure with hypoxia; J96.02 - Acute respiratory failure with hypercapnia Status: Acute Assessment and Plan: Acute Respiratory failure secondary to recurrent aspiration pneumonia from tube feeds or secretions Continue full mechanical ventilation support to prevent hypo -tolerated PSV 05/05 since 05/28 morning. -chest x-ray shows improvement Low tidal volume ventilation strategy to prevent volutrauma Bronchodilators COVID-19 PCR negative -bedside RN did suction tube feeds through his ETT, likely secondary to aspiration around the ETT. Tube feeds currently on hold (3) Severe sepsis: Code(s): A41.9 - Sepsis, unspecified organism; R65.20 - Severe sepsis without septic shock Status: Acute Assessment and Plan: Secondary to recurrent aspiration pneumonia and possible UTI Patient was hypotensive on presentation but blood pressure improved with IV fluid bolus. Central venous catheter was placed but patient has not needed vasopressor this time Lactic acid has normalized Continue to monitor (4) Septic shock: Code(s): A41.9 - Sepsis, unspecified organism; R65.21 - Severe sepsis with septic shock Status: Acute Assessment and Plan: Patient arrived from the ER hypotensive w/ BP of 77/44 mm Hg. He was treated with another 500 cc IV fluid bolus in the ICU and I placed a central line and ordered Levophed for vasopressor support. Source of sepsis appears to be pulmonary but may also be urinary. -Blood cultures are negative x2, urine cultures growing VRE -Unasyn for possible aspiration pneumonia -appreciate infectious disease evaluation and recommendations, since patient is afebrile, normal WBC count, the VRE in urine seems to be colonization -repeat urine cultures 05/27: No growth -lactic acid has normalized to 0.8 (2.9 on admission) (5) Pneumonia: Qualifiers: Aspiration pneumonia type: unspecified Laterality: bilateral Lung location: unspecified part of lung Pneumonia type: aspiration pneumonia Qualified Code(s): J69.0 - Pneumonitis due to inhalation of food and vomit Code(s): J18.9 - Pneumonia, unspecified organism Status: Acute Assessment and Plan: See above (6) Abnormal urinalysis: Code(s): R82.90 - Unspecified abnormal findings in urine Status: Acute Assessment and Plan: Suspected to be UTI. Urine culture VRE, could be a contaminate. Continue IV antibiotics as above (7) Hyperkalemia: Code(s): E87.5 - Hyperkalemia Status: Acute Assessment and Plan: Resolved with IV fluid resuscitation Monitor (8) Suspected 2019 novel coronavirus infection: Code(s): Z20.828 - Contact with and (suspected) exposure to other viral communicable diseases Status: Acute Assessment and Plan: SARS-CoV-2 PCR is negative as of 05/24 -patient off all precautions and isolation (9) Dysphagia: Qualifiers: Dysphagia type: unspecified Qualified Code(s): R13.10 - Dysphagia, unspecified Code(s): R13.10 - Dysphagia, unspecified Status: Chronic Assessment and Plan: NPO. Continue tube feeds (10) Encephalopathy chronic: Code(s): G93.49 - Other encephalopathy Status: Chronic Assessment and Plan: Head CT IMPRESSION: 1. No acute intracranial findings or interval change. 2. Severely dilated ventricular system out of proportion to sulci, NPH versus central atrophy. 3. Bifront
--- NOTE | 2020-05-29 12:06 | WPDINFPN2 ---
Progress Note: A&P Assessment and Plan (1) Aspiration into airway: Code(s): T17.908A - Unspecified foreign body in respiratory tract, part unspecified causing other injury, initial encounter Status: Acute Assessment and Plan: 1. Fever and respiratory distress, suspect aspiration of G tube feeding, vs (more likely) poor airway clearance of tracheal secretions. Findings better. I personally reviewed his CXR: minimal ISIF, rotated film. NG on repeat urine culture. 2. Chronic Murphy with bacteriuria, no urine infection present 3. Chronic encephalopathy, stable REC AmpSulbactam #6, continue until AM, then stop, no oral therapy should be needed thereafter. Subjective Date/time seen: 05/29/20 12:06 Interval history: seen just prior to OR transport. No pressors, remains on vent Exam Narrative: Exam Narrative: afebrile Const: General: no acute distress Other: cachectic Neck: Neck: supple Resp: Effort & Inspection: normal respiratory effort Auscultation: clear to auscultation bilaterally and diminished lung sounds Cardio: Rate: regular rate Rhythm: regular rhythm Heart sounds: no murmurs GI: GI Palp: Yes Firmness to palpation present (GI) and No Tenderness to palpation present (GI) Auscultation: normal bowel sounds Other: no mass. G tube site is normal to inspection Urinary Catheter: Urinary Catheter: patent and draining and urine clear Skin: General skin exam: normal color and no rashes or lesions noted Objective Data Vital Signs Vital Signs: Vital Signs - 24 hr 05/28/20 14:00 05/28/20 14:20 05/28/20 14:30 Temperature Pulse Rate 93 93 98 Respiratory Rate 21 H 20 20 Blood Pressure 122/79 Pulse Oximetry 100 100 05/28/20 15:31 05/28/20 16:00 05/28/20 17:07 Temperature 36.5 C Pulse Rate 91 93 89 Respiratory Rate 16 17 Blood Pressure 125/84 Pulse Oximetry 100 100 100 05/28/20 18:00 05/28/20 20:00 05/28/20 20:27 Temperature 36.8 C Pulse Rate 91 88 93 Respiratory Rate 16 15 28 H Blood Pressure 130/88 120/75 Pulse Oximetry 100 100 05/28/20 20:28 05/28/20 22:00 05/28/20 22:25 Temperature Pulse Rate 86 88 89 Respiratory Rate 18 Blood Pressure 128/78 Pulse Oximetry 100 100 100 05/29/20 00:00 05/29/20 01:56 05/29/20 01:57 Temperature 36.5 C Pulse Rate 101 H 94 94 Respiratory Rate 24 H 19 Blood Pressure 140/82 Pulse Oximetry 100 100 05/29/20 02:00 05/29/20 04:00 05/29/20 04:16 Temperature 36.9 C Pulse Rate 95 94 91 Respiratory Rate 21 H 16 Blood Pressure 121/74 129/78 Pulse Oximetry 100 100 100 05/29/20 06:00 05/29/20 07:53 05/29/20 07:58 Temperature Pulse Rate 96 96 92 Respiratory Rate 19 15 Blood Pressure 130/81 Pulse Oximetry 100 100 05/29/20 08:00 05/29/20 09:16 05/29/20 10:40 Temperature 36.7 C 36.7 C Pulse Rate 96 95 89 Respiratory Rate 20 17 Blood Pressure 138/83 138/83 Pulse Oximetry 100 100 100 Intake/Output Intake/Output: Intake & Output 05/26/20 05/27/20 05/28/20 05/29/20 23:59 23:59 23:59 23:59 Intake Total 3050 1463 699 190 Output Total 1825 3600 1650 450 Balance 1225 -2137 -951 -260 Meds/Results Medications: Active Medications Generic Name Dose Route Start Last Admin Trade Name Freq PRN Reason Stop Dose Admin Buspirone HCl 10 mg 05/28/20 09:00 05/29/20 08:23 Buspirone Hcl 10 Mg Tablet FEED TUBE 10 mg TID JERAMIE Administration Dextrose 12.5 gm 05/24/20 13:39 05/26/20 05:23 Dextrose 50% 25 Gm/50 Ml Syringe IV PUSH 12.5 gm PRN PRN Administration Hypoglycemia Protocol Diltiazem HCl 60 mg 05/28/20 07:33 05/29/20 05:31 Diltiazem Hcl 60 Mg Tablet FEED TUBE 60 mg Q6HR JERAMIE Administration Dornase Demetris 2.5 mg 05/27/20 08:00 05/28/20 20:22 Dornase Demetris Inh Soln 1 Mg/Ml 2.5 Ml Amp INHALATION 2.5 mg Q12HRT JERAMIE Administration Enoxaparin Sodium 40 mg 05/24/20 09:00 05/29/20 08:54 Enoxaparin 40 Mg/0.4 Ml Syringe SUB-Q Not Given ZULAY
--- NOTE | 2020-05-29 12:07 | WPDHPUPDATE1 ---
History and Physical Update Update Date/Time: 05/29/20 12:07 History and Physical has been reviewed, including an updated exam of the patient. There are NO changes in the patient's condition. Risks, benefits, and alternatives have been discussed and questions answered. Patient agrees to proceed with procedure.
--- NOTE | 2020-05-29 13:07 | PM.PROC ---
Procedure Note - Detailed Date of procedure: 05/29/20 Pre-op diagnosis: Respiratory failure/Sepsis/Aspiration Pneumonia/ut Post-op diagnosis: same Procedure performed: Placement of open jejunostomy tube Description of procedure: The patient is taken operating room placed in the supine position. After adequate induction of general anesthesia, the patient is prepped and draped in the normal sterile fashion. A time-out was then done to verify the patient's identity, as well as procedure being performed. A small incision in the upper midline was made and access was gained into the peritoneal cavity. I was able to note the previously placed PEG tube that was noted in good position. I began by identifying the small intestine. I then ran the small intestine from the ligament Treitz to ligament of Trieves. I then identified an area approximately 20 cm distal to ligament of Treitz. I then placed 2x silk sutures in a pursestring around this area. In the right upper quadrant I made a small skin incision and brought in a 16 Indonesian red rubber catheter feeding tube. I then made an enterotomy in the open central portion of my pursestring sutures. I then fed the red rubber catheter into the jejunum. Once in good position, I tied the pursestring suture securing the red rubber in the jejunum. I then created a Witzel tunnel using interrupted 3 0 silk sutures. I then proceeded to tack the small intestine up to the anterior abdominal wall at the exit site in the right upper quadrant using interrupted 3 0 silk sutures. I then flushed the catheter with normal saline and no leakage was noted. The midline incision was then closed with a looped PDS suture. Four Monocryl subcuticular sutures were used to close the skin site. A 3 0 silk drain stitch was placed around the red rubber catheter. Sterile dressing was then placed. The patient tolerated the procedure well and will be transferred back to the ICU in critical condition. Implants: Sixteen Indonesian jejunostomy tube Anesthesia: GETA Surgeon: Chanda Sellers MD Estimated blood loss (mL): 5 Drains: No Packing: No Pathology: none sent Complications: No immediate complications Condition: critical Disposition: ICU Findings: placement of 16 Indonesian jejunostomy tube
[2020-05-29] MEDS: fentaNYL CITRATE INJ (*CRX) 100 MCG/2 ML VIAL 25 MCG IV PUSH (14:49)
--- NOTE | 2020-05-29 16:01 | PM.IMPN ---
Progress Note: A&P Assessment and Plan (1) Acute respiratory failure with hypoxia and hypercarbia: Code(s): J96.01 - Acute respiratory failure with hypoxia; J96.02 - Acute respiratory failure with hypercapnia Status: Acute Assessment and Plan: Patient has been admitted to ICU. Strict NPO. Acute respiratory failure is likely secondary to aspiration pneumonia. COVID negative on 05/24/20. Influenza negative. Continue ventilatory support and wean off when possible. Continue IV abx. J tube placement today to try to avoid aspiration. (2) Septic shock: Code(s): A41.9 - Sepsis, unspecified organism; R65.21 - Severe sepsis with septic shock Status: Acute Assessment and Plan: Lactic acid 2.9. WBC 18K with bandemia. Patient arrived from the ER hypotensive w/ BP of 77/44 mm Hg. He was treated with another 500 cc IV fluid bolus in the ICU and central line placed. Levophed ordered for vasopressor support but not required. Source of sepsis appears to be pulmonary. Repeat Lactic normal. BCx NGTD. UCx mentioned below. Continue IV antibiotics. (3) Pneumonia: Qualifiers: Aspiration pneumonia type: unspecified Laterality: bilateral Lung location: unspecified part of lung Pneumonia type: aspiration pneumonia Qualified Code(s): J69.0 - Pneumonitis due to inhalation of food and vomit Code(s): J18.9 - Pneumonia, unspecified organism Status: Acute Assessment and Plan: CXR reviewed today showing improvement in the Rt lung airspace disease. Probably aspiration pneumonia. BCx and Sputum Cx negative. Continue IV antibiotics. Continue bronchodilators. Wean vent as tolerated. l J-tube placed today by surgery (4) Abnormal urinalysis: Code(s): R82.90 - Unspecified abnormal findings in urine Status: Acute Assessment and Plan: UA noted. Urine culture growing VRE but 10-49K; consider contaminate. Blood cultures no growth to date and sputum negative. Linezolid stopped. Continue Unasyn for aspiration per ID (5) Leukocytosis: Qualifiers: Leukocytosis type: unspecified Qualified Code(s): D72.829 - Elevated white blood cell count, unspecified Code(s): D72.829 - Elevated white blood cell count, unspecified Status: Acute Assessment and Plan: Secondary to severe sepsis and pneumonia. White count normal now. (6) Dysphagia: Qualifiers: Dysphagia type: unspecified Qualified Code(s): R13.10 - Dysphagia, unspecified Code(s): R13.10 - Dysphagia, unspecified Status: Chronic Assessment and Plan: Chronic with GTube in place. NPO. Toelrating tube feeds. (7) Encephalopathy chronic: Code(s): G93.49 - Other encephalopathy Status: Chronic Assessment and Plan: Patient with acute on chronic encephalopathy. Acute process related to above. 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 More alert now. (8) Anemia: Code(s): D64.9 - Anemia, unspecified Status: Acute Assessment and Plan: Appears to be chronic. Was stable last admission in the 8 range. Hemoglobin 7.4 today. Follow. (9) DVT prophylaxis: Code(s): Z29.9 - Encounter for prophylactic measures, unspecified Status: Acute Assessment and Plan: Lovenox Subjective Date/time seen: 05/29/20 16:01 Interval history: Date of service 05/28 60yo male with HTN, hydrocephalus and dementia who returns due to acute respiratory failure from recurrent aspiration. Patient intubated. He is alert. Suctioning 03/27- found tube feedings in his ETT so tube feeding were stopped. No significant hypoxia. surgery to place J tube today Exam Narrative: Exam Narrative: AF 97.6 118/80 86 19 100% MV FIO2 30% Gen - intubated, opens eyes HEENT - ETT Neck - right IJ secured Chest - clear anteriorly, nml RR CV - RRR S1/S2. Tele s
[2020-05-29 16:44] LABS: Glucose Point of Care 140 (65-105)
[2020-05-29] MEDS: DORNASE ALFA INH SOLN 1 MG/ML 2.5 ML AMP 2.5 MG INHALATION (20:06)
[2020-05-29 23:14] LABS: Glucose Point of Care 115 (65-105)
[2020-05-30] VITALS (28 sets, daily range): BP systolic 126–163; BP diastolic 76–103; PULSE 87–111; RESP 19–25; TEMP 36.8–36.9; O2SAT 98–100
[2020-05-30 05:02] LABS: Alveolar/Arterial O2 Gradient 56.7 mmHg; Carboxyhemoglobin 0.3 % THb (0-2.0); Fractional Inspired Oxygen 30 %; HCO3 ABG 20.9 mEq/l (22.0-26.0); Methemoglobin ABG 0.3 %THb (0-1.5); Oxygen Content ABG 14.5 %vol (16.0-22.0); Oxygen Saturation ABG 98.9 % (95.0-100.0); Oxyhemoglobin 97.6 % THb (90.0-100.0); PCO2 ABG 26.1 mmHg (35.0-45.0); PO2 ABG 126.5 mmHg (80.0-100.0); PO2 FiO2 Ratio Arterial Blood 4.22 %; Reduced Hemoglobin 1.8 %THb (0-5.0); Total Hemoglobin 10.4 g/dL (12.0-18.0)
[2020-05-30 05:06] LABS: Device VENTILATOR; Modified Allen's Test Pass; Site Drawn LEFT RADIAL; pH ABG 7.522 (7.350-7.450)
[2020-05-30 05:07] LABS: Arterial Blood Gas PEEP 5 cmH2O; Arterial Blood Gas Tidal Volume 400 ml; Arterial Blood Gas Vent Mode CMV; Arterial Blood Gas Ventilator rate 20 /MIN
[2020-05-30 05:08] LABS: Hematocrit 30.4 % (42.0-52.0); Hemoglobin 9.4 g/dL (14.0-18.0); Mean Corpuscular HGB Conc 30.9 g/dl (32-36); Mean Corpuscular Hemoglobin 23.7 pg (26-34); Mean Corpuscular Volume 76.8 fl (80-100); Mean Platelet Volume 9.6 fl (7.4-10.4); Platelet Count Result 407 k/mm3 (150-375); Red Blood Count 3.96 M/mm3 (4.6-6.20); Red Cell Distribution Width 17.1 % (11.5-14.5); White Blood Count 8.5 K/mm3 (4.5-10.0)
[2020-05-30 05:24] LABS: Anion Gap 9 mmol/L (8-16); Blood Urea Nitrogen 2 mg/dL (9-20); Calcium 8.6 mg/dL (8.4-10.2); Carbon Dioxide 24 mmol/L (22-30); Chloride 100 mmol/L (98-107); Estimated CRCL calculation 110 ml/min; Estimated Glomerular Filt Rate > 60; Glucose 126 mg/dL (75-110); Potassium 3.3 mmol/L (3.4-5.0); Sodium 133 mmol/L (137-145)
[2020-05-30] MEDS: AMPICILLIN SULB 1.5 GM/NS 50ML 1.5 GM/50 ML VIAL IVPB (05:29)
[2020-05-30] MEDS: METOCLOPRAMIDE HCL 5 MG TABLET FEED TUBE ×4 (05:30→23:48)
[2020-05-30] MEDS: CENTRAL LINE FLUSH 10 ML IV PUSH ×4 (05:30→20:58)
[2020-05-30] MEDS: dilTIAZem HCL 60 MG TABLET FEED TUBE ×4 (05:30→23:48)
[2020-05-30 05:36] LABS: Glucose Point of Care 116 (65-105)
--- NOTE | 2020-05-30 07:12 | WPDANESPN ---
Anes - Prog Note Post-Op Date/Time: 05/30/20 07:12 Cardiovascular status: normal Respiratory status: normal Airway patency: baseline Mental status: baseline Post-Op hydration status: normal Vital Signs: Last Vital Signs Temp 98.5 F 05/30/20 04:00 Pulse 94 05/30/20 06:00 Resp 20 05/30/20 06:00 BP 150/88 H 05/30/20 06:00 Pulse Ox 100 05/30/20 06:00 Pain Score (VAS): 210 I/O: Intake & Output 05/29/20 05/29/20 05/30/20 15:59 23:59 07:59 Intake Total 100 1140 50 Output Total 400 600 Balance 100 740 -550 Laboratory Tests 05/30/20 04:57 05/30/20 04:58 05/29/20 05/29/20 05/29/20 11:15 16:42 23:10 WBC RBC Hgb Hct MCV MCH MCHC RDW Plt Count MPV Puncture Site ABG pH ABG pCO2 ABG pO2 ABG PO2/FiO2 Ratio ABG HCO3 ABG O2 Saturation ABG O2 Content ABG Base Excess A-a Gradient Oxyhemoglobin Carboxyhemoglobin Methemoglobin Reduced Hemoglobin Total Hemoglobin O2 Delivery Device O2 Liters/Min Minute Volume Vent Rate Vent Mode FiO2 Tidal Volume PEEP Peak Inspir Pressure Pressure Support Sodium Potassium Chloride Carbon Dioxide Anion Gap BUN Creatinine Estim Creat Clear Calc Estimated GFR Glucose POC Capillary Glucose 92 140 H 115 H Calcium 05/30/20 05/30/20 05/30/20 04:48 04:57 04:58 WBC 8.5 RBC 3.96 L Hgb 9.4 L Hct 30.4 L MCV 76.8 L MCH 23.7 L MCHC 30.9 L RDW 17.1 H Plt Count 407 H MPV 9.6 Puncture Site Left radial ABG pH 7.522 H* ABG pCO2 26.1 L ABG pO2 126.5 H ABG PO2/FiO2 Ratio 4.22 ABG HCO3 20.9 L ABG O2 Saturation 98.9 ABG O2 Content 14.5 L ABG Base Excess -1.0 A-a Gradient 56.7 Oxyhemoglobin 97.6 Carboxyhemoglobin 0.3 Methemoglobin 0.3 Reduced Hemoglobin 1.8 Total Hemoglobin 10.4 L O2 Delivery Device Ventilator O2 Liters/Min Not Reportable Minute Volume Not Reportable Vent Rate 20 Vent Mode Cmv FiO2 30 Tidal Volume 400 PEEP 5 Peak Inspir Pressure Not Reportable Pressure Support Not Reportable Sodium 133 L Potassium 3.3 L Chloride 100 Carbon Dioxide 24 Anion Gap 9 BUN 2 L Creatinine 0.40 L Estim Creat Clear Calc 110 Estimated GFR > 60 Glucose 126 H POC Capillary Glucose Calcium 8.6 05/30/20 05:28 WBC RBC Hgb Hct MCV MCH MCHC RDW Plt Count MPV Puncture Site ABG pH ABG pCO2 ABG pO2 ABG PO2/FiO2 Ratio ABG HCO3 ABG O2 Saturation ABG O2 Content ABG Base Excess A-a Gradient Oxyhemoglobin Carboxyhemoglobin Methemoglobin Reduced Hemoglobin Total Hemoglobin O2 Delivery Device O2 Liters/Min Minute Volume Vent Rate Vent Mode FiO2 Tidal Volume PEEP Peak Inspir Pressure Pressure Support Sodium Potassium Chloride Carbon Dioxide Anion Gap BUN Creatinine Estim Creat Clear Calc Estimated GFR Glucose POC Capillary Glucose 116 H Calcium Microbiology 05/24/20 01:54 Blood Blood Culture - Final 05/24/20 01:54 Blood Blood Culture - Final 05/27/20 13:11 Urine [place] Urine Culture - Final Post-procedural complaints: none Patient Feedback: Patient satisfied with anesthetic care.
[2020-05-30] MEDS: DORNASE ALFA INH SOLN 1 MG/ML 2.5 ML AMP 2.5 MG INHALATION ×2 (07:55→20:09)
[2020-05-30] MEDS: FAMOTIDINE 20 MG TABLET FEED TUBE ×2 (07:56→16:46)
[2020-05-30] MEDS: ENOXAPARIN 40 MG/0.4 ML SYRINGE SUB-Q (07:56)
[2020-05-30] MEDS: busPIRone HCL 10 MG TABLET FEED TUBE ×3 (07:56→16:46)
[2020-05-30] MEDS: FOLIC ACID 1 MG TABLET FEED TUBE (07:57)
[2020-05-30] MEDS: DEXTROSE 5%/0.9% SOD CHL 1,000 ML 75 ML IV CONT ×2 (08:05→22:00)
[2020-05-30] MEDS: MAGNESIUM SULFATE 3GM/D5W100ML 3 GM/100 ML BAG IVPB (08:18)
--- NOTE | 2020-05-30 09:49 | WPDINTPN ---
Progress Note: A&P Assessment and Plan (1) Aspiration into airway: Code(s): T17.908A - Unspecified foreign body in respiratory tract, part unspecified causing other injury, initial encounter Status: Acute Assessment and Plan: Patient has a PEG tube, bedside RN suctioning tube feeds from his ETT likely secondary to aspiration around the ETT. -05/29/2020: Placement of Jejunostomy tube -will connect PEG tube to low intermittent suction to prevent any aspiration (2) Acute respiratory failure with hypoxia and hypercarbia: Code(s): J96.01 - Acute respiratory failure with hypoxia; J96.02 - Acute respiratory failure with hypercapnia Status: Acute Assessment and Plan: Acute Respiratory failure secondary to recurrent aspiration pneumonia from tube feeds or secretions Continue full mechanical ventilation support to prevent hypo -tolerated PSV 05/05, will decrease to 03/05. -chest x-ray shows improvement Continue Bronchodilators COVID-19 PCR negative -bedside RN did suction tube feeds through his ETT, likely secondary to aspiration around the ETT. Tube feeds currently on hold (3) Septic shock: Code(s): A41.9 - Sepsis, unspecified organism; R65.21 - Severe sepsis with septic shock Status: Acute Assessment and Plan: RESOLVED Patient arrived from the ER hypotensive w/ BP of 77/44 mm Hg. He was treated with another 500 cc IV fluid bolus in the ICU and I placed a central line and ordered Levophed for vasopressor support. Source of sepsis appears to be pulmonary but may also be urinary. -Blood cultures are negative x2, urine cultures growing VRE -Unasyn for possible aspiration pneumonia -appreciate infectious disease evaluation and recommendations, since patient is afebrile, normal WBC count, the VRE in urine seems to be colonization -repeat urine cultures 05/27: No growth -lactic acid has normalized to 0.8 (2.9 on admission) (4) Pneumonia: Qualifiers: Aspiration pneumonia type: unspecified Laterality: bilateral Lung location: unspecified part of lung Pneumonia type: aspiration pneumonia Qualified Code(s): J69.0 - Pneumonitis due to inhalation of food and vomit Code(s): J18.9 - Pneumonia, unspecified organism Status: Acute Assessment and Plan: See above (5) Abnormal urinalysis: Code(s): R82.90 - Unspecified abnormal findings in urine Status: Acute Assessment and Plan: Suspected to be UTI. Urine culture VRE, could be colonization. Continue IV antibiotics as above (6) Suspected 2019 novel coronavirus infection: Code(s): Z20.828 - Contact with and (suspected) exposure to other viral communicable diseases Status: Acute Assessment and Plan: SARS-CoV-2 PCR is negative as of 05/24 -patient off all precautions and isolation (7) Dysphagia: Qualifiers: Dysphagia type: unspecified Qualified Code(s): R13.10 - Dysphagia, unspecified Code(s): R13.10 - Dysphagia, unspecified Status: Chronic Assessment and Plan: NPO. Will restart trickle tube feeds per surgery -PEG tube to low intermittent suction (8) Encephalopathy chronic: Code(s): G93.49 - Other encephalopathy Status: Chronic Assessment and Plan: Head CT IMPRESSION: 1. No acute intracranial findings or interval change. 2. Severely dilated ventricular system out of proportion to sulci, NPH versus central atrophy. 3. Bifrontal and bitemporal encephalomalacia. Posttraumatic? Patient has hydrocephalus listed as doses on his chronic medical history. Details unknown at this time Hold all sedatives at this time Currently off all sedation -patient is awake, follows simple commands Additional Plan DVT prophylaxis -Lovenox Stress ulcer prophylaxis - Protonix Nutrition -NPO Discussed with Alban, patient's daughter and guardian, updated her with patient's condition and plan of care. She is aware that patient is going to get
--- NOTE | 2020-05-30 10:45 | PCDIET ---
ICU Rounding Note: Plan to start tube feedings today at 10mL/hr, per surgery. Patient had open j-tube placed yesterday. Last recorded weight is 49.5kg which is stable. Bowel Motility: BM x 1 on 05/28/20. Labs Reviewed: Hgb (9.4), Hct (30.4), Glu (126), BUN (2), Cr (0.4), K (3.3), Na (133) Meds Noted: D5NS at 75mL/hr, Pepcid, Folic Acid, Novolog, Xopenex, Reglan, Levophed, KCl, Magnesium Sulfate Additional Notes: Right foot stage I and right hip maceration documented. Following daily in ICU rounds. Assessing/reassessing every Thursday/Thursday.
[2020-05-30 12:02] LABS: Glucose Point of Care 116 (65-105)
--- NOTE | 2020-05-30 14:54 | PM.PNGS ---
Progress Note: A&P Assessment and Plan (1) Aspiration into airway: Code(s): T17.908A - Unspecified foreign body in respiratory tract, part unspecified causing other injury, initial encounter Status: Acute Assessment and Plan: s/p J tube placement, ok to start trophic feeds, G tube to LIS Subjective Subjective Date/Time Seen: 05/30/20 14:54 no acute issues overnight, J tube to gravity drainage Review of Systems Review of Systems: ROS unobtainable: Yes unobtainable due to endotracheal tube and unobtainable due to mental status Exam GI: Inspection: normal to inspection and incision GI Palp: Yes Soft to palpation, Yes Tenderness to palpation present (GI) and No Guarding due to palpation present (GI) Other: soft, sl dist, incision C/D/I, J tube to gravity drainage Objective Data Vital Signs Vital Signs: Vital Signs - 24 hr 05/29/20 15:27 05/29/20 17:03 05/29/20 17:09 Temperature 36.7 C 36.7 C Pulse Rate 88 96 97 Respiratory Rate 20 20 Blood Pressure 119/80 139/79 Pulse Oximetry 100 100 100 05/29/20 20:00 05/29/20 20:49 05/29/20 20:50 Temperature 36.5 C Pulse Rate 103 H 97 97 Respiratory Rate 20 20 Blood Pressure 142/86 H Pulse Oximetry 100 100 05/29/20 22:00 05/29/20 23:05 05/30/20 00:00 Temperature 36.8 C Pulse Rate 98 99 95 Respiratory Rate 20 20 Blood Pressure 135/86 135/87 Pulse Oximetry 100 100 99 05/30/20 02:00 05/30/20 04:00 05/30/20 05:05 Temperature 36.9 C Pulse Rate 101 H 99 94 Respiratory Rate 20 20 Blood Pressure 134/84 141/85 H Pulse Oximetry 100 100 100 05/30/20 06:00 05/30/20 07:58 05/30/20 08:00 Temperature 36.8 C Pulse Rate 94 111 H 100 Respiratory Rate 20 20 20 Blood Pressure 150/88 H 163/95 H Pulse Oximetry 100 100 05/30/20 08:05 05/30/20 09:15 05/30/20 09:51 Temperature Pulse Rate 97 97 97 Respiratory Rate 20 Blood Pressure Pulse Oximetry 100 05/30/20 10:00 05/30/20 11:27 05/30/20 12:00 Temperature 36.9 C Pulse Rate 101 H 107 H 105 H Respiratory Rate 21 H 22 H Blood Pressure 162/98 H 161/98 H Pulse Oximetry 100 100 100 05/30/20 13:57 05/30/20 13:59 05/30/20 14:00 Temperature Pulse Rate 91 92 93 Respiratory Rate 20 22 H Blood Pressure 143/102 H Pulse Oximetry 100 100 05/30/20 14:18 Temperature Pulse Rate 91 Respiratory Rate 20 Blood Pressure Pulse Oximetry Intake/Output Intake/Output: Intake & Output 05/27/20 05/28/20 05/29/20 05/30/20 23:59 23:59 23:59 23:59 Intake Total 6774 476 5511 1250 Output Total 3600 1650 850 600 Balance -2137 -951 480 650 Meds/Results Medications: Active Medications Generic Name Dose Route Start Last Admin Trade Name Freq PRN Reason Stop Dose Admin Buspirone HCl 10 mg 05/28/20 09:00 05/30/20 11:46 Buspirone Hcl 10 Mg Tablet FEED TUBE 10 mg TID JERAMIE Administration Dextrose 12.5 gm 05/24/20 13:39 05/26/20 05:23 Dextrose 50% 25 Gm/50 Ml Syringe IV PUSH 12.5 gm PRN PRN Administration Hypoglycemia Protocol Diltiazem HCl 60 mg 05/28/20 07:33 05/30/20 11:46 Diltiazem Hcl 60 Mg Tablet FEED TUBE 60 mg Q6HR JERAMIE Administration Dornase Demetris 2.5 mg 05/27/20 08:00 05/30/20 07:55 Dornase Demetris Inh Soln 1 Mg/Ml 2.5 Ml Amp INHALATION 2.5 mg Q12HRT JERAMIE Administration Enoxaparin Sodium 40 mg 05/24/20 09:00 05/30/20 07:56 Enoxaparin 40 Mg/0.4 Ml Syringe SUB-Q 40 mg DAILY JERAMIE Administration Famotidine 20 mg 05/28/20 09:00 05/30/20 07:56 Famotidine 20 Mg Tablet FEED TUBE 20 mg BID JERAMIE Administration Folic Acid 1 mg 05/28/20 09:00 05/30/20 07:57 Folic Acid 1 Mg Tablet FEED TUBE 1 mg DAILY JERAMIE Administration Glucagon 1 mg 05/24/20 13:39 Glucagon For Inj 1 Mg Vial IM PRN PRN Hypoglycemia Protocol Glucose 15 gm 05/24/20 13:39 Glucose Oral Gel 15 Gm Of Glucse In 37.5 Gm Tube PO PRN PRN Hypoglycemia Protocol Norepinephrine
--- NOTE | 2020-05-30 16:24 | PM.IMPN ---
Progress Note: A&P Assessment and Plan (1) Acute respiratory failure with hypoxia and hypercarbia: Code(s): J96.01 - Acute respiratory failure with hypoxia; J96.02 - Acute respiratory failure with hypercapnia Status: Acute Assessment and Plan: . Acute respiratory failure is likely secondary to aspiration pneumonia. COVID negative on 05/24/20. Influenza negative. Continue ventilatory support and wean off when possible. Continue IV abx. J tube placement 05/30 to try to avoid aspiration. (2) Septic shock: Code(s): A41.9 - Sepsis, unspecified organism; R65.21 - Severe sepsis with septic shock Status: Acute Assessment and Plan: Lactic acid 2.9. WBC 18K with bandemia. Patient arrived from the ER hypotensive w/ BP of 77/44 mm Hg. He was treated with another 500 cc IV fluid bolus in the ICU and central line placed. Levophed ordered for vasopressor support but not required. Source of sepsis appears to be pulmonary. Repeat Lactic normal. BCx NGTD. UCx mentioned below. Continue IV antibiotics. (3) Pneumonia: Qualifiers: Aspiration pneumonia type: unspecified Laterality: bilateral Lung location: unspecified part of lung Pneumonia type: aspiration pneumonia Qualified Code(s): J69.0 - Pneumonitis due to inhalation of food and vomit Code(s): J18.9 - Pneumonia, unspecified organism Status: Acute Assessment and Plan: CXR reviewed today showing improvement in the Rt lung airspace disease. Probably aspiration pneumonia. BCx and Sputum Cx negative. Continue IV antibiotics. Continue bronchodilators. Wean vent as tolerated. J-tube placed 05/29 by surgery (4) Abnormal urinalysis: Code(s): R82.90 - Unspecified abnormal findings in urine Status: Acute Assessment and Plan: UA noted. Urine culture growing VRE but 10-49K; consider contaminate. Blood cultures no growth to date and sputum negative. Linezolid stopped. Continue Unasyn for aspiration per ID (5) Leukocytosis: Qualifiers: Leukocytosis type: unspecified Qualified Code(s): D72.829 - Elevated white blood cell count, unspecified Code(s): D72.829 - Elevated white blood cell count, unspecified Status: Acute Assessment and Plan: Secondary to severe sepsis and pneumonia. White count normal now. (6) Dysphagia: Qualifiers: Dysphagia type: unspecified Qualified Code(s): R13.10 - Dysphagia, unspecified Code(s): R13.10 - Dysphagia, unspecified Status: Chronic Assessment and Plan: Chronic with GTube in place. NPO. Toelrating tube feeds. (7) Encephalopathy chronic: Code(s): G93.49 - Other encephalopathy Status: Chronic Assessment and Plan: Patient with acute on chronic encephalopathy. Acute process related to above. 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 More alert now. (8) Anemia: Code(s): D64.9 - Anemia, unspecified Status: Acute Assessment and Plan: Appears to be chronic. Was stable last admission in the 8 range. Hemoglobin 9.4 today. Follow. (9) DVT prophylaxis: Code(s): Z29.9 - Encounter for prophylactic measures, unspecified Status: Acute Assessment and Plan: Lovenox Subjective Date/time seen: 05/30/20 16:24 Interval history: Date of service 05/30 60yo male with HTN, hydrocephalus and dementia who returns due to acute respiratory failure from recurrent aspiration. Patient intubated. He is alert. Suctioning 03/27- found tube feedings in his ETT so tube feeding were stopped. No significant hypoxia. surgery to place J tube 05/29 Exam Narrative: Exam Narrative: AF 97.6 146/92 90 19 100% MV FIO2 30% Gen - intubated, opens eyes HEENT - ETT Neck - right IJ secured Chest - clear anteriorly, nml RR CV - RRR S1/S2. Tele showing no significant dysrhythmias Abd - sof
[2020-05-30 18:07] LABS: Glucose Point of Care 134 (65-105)
[2020-05-30 23:48] LABS: Glucose Point of Care 112 (65-105)
[2020-05-31] VITALS (27 sets, daily range): BP systolic 115–147; BP diastolic 72–89; PULSE 91–103; RESP 18–36; TEMP 36.7–36.9; O2SAT 97–100
[2020-05-31 04:38] LABS: Alveolar/Arterial O2 Gradient 77.1 mmHg; Base Excess ABG -1.6 mEq/l (+/-2.0); Carboxyhemoglobin 0.3 % THb (0-2.0); Fractional Inspired Oxygen 30 %; HCO3 ABG 22.7 mEq/l (22.0-26.0); Methemoglobin ABG 0.3 %THb (0-1.5); Oxygen Content ABG 17.2 %vol (16.0-22.0); Oxygen Saturation ABG 97.2 % (95.0-100.0); PCO2 ABG 37.1 mmHg (35.0-45.0); PO2 ABG 93.2 mmHg (80.0-100.0); PO2 FiO2 Ratio Arterial Blood 3.11 %; Reduced Hemoglobin 3.4 %THb (0-5.0); Total Hemoglobin 12.7 g/dL (12.0-18.0); pH ABG 7.405 (7.350-7.450)
[2020-05-31 04:39] LABS: Device VENTILATOR; Site Drawn RIGHT BRACHIAL
[2020-05-31 04:40] LABS: Arterial Blood Gas PEEP 5 cmH2O; Arterial Blood Gas Pressure Support 10 cmH2O; Arterial Blood Gas Vent Mode PRESSURE SUPPORT
[2020-05-31 04:51] LABS: Hematocrit 28.3 % (42.0-52.0); Hemoglobin 8.8 g/dL (14.0-18.0); Mean Corpuscular HGB Conc 31.1 g/dl (32-36); Mean Corpuscular Hemoglobin 24.1 pg (26-34); Mean Corpuscular Volume 77.5 fl (80-100); Mean Platelet Volume 9.6 fl (7.4-10.4); Platelet Count Result 384 k/mm3 (150-375); Red Blood Count 3.65 M/mm3 (4.6-6.20); Red Cell Distribution Width 17.3 % (11.5-14.5); White Blood Count 7.4 K/mm3 (4.5-10.0)
[2020-05-31 05:15] LABS: Anion Gap 6 mmol/L (8-16); Calcium 8.7 mg/dL (8.4-10.2); Carbon Dioxide 27 mmol/L (22-30); Chloride 103 mmol/L (98-107); Estimated CRCL calculation 110 ml/min; Estimated Glomerular Filt Rate > 60; Glucose 126 mg/dL (75-110); Potassium 3.8 mmol/L (3.4-5.0); Sodium 136 mmol/L (137-145)
[2020-05-31 05:40] LABS: Blood Urea Nitrogen < 2 mg/dL (9-20)
[2020-05-31] MEDS: METOCLOPRAMIDE HCL 5 MG TABLET FEED TUBE ×4 (06:14→23:34)
[2020-05-31] MEDS: dilTIAZem HCL 60 MG TABLET FEED TUBE ×4 (06:14→23:34)
[2020-05-31] MEDS: CENTRAL LINE FLUSH 10 ML IV PUSH ×4 (06:14→22:25)
[2020-05-31] MEDS: DORNASE ALFA INH SOLN 1 MG/ML 2.5 ML AMP 2.5 MG INHALATION ×2 (07:36→20:14)
[2020-05-31] MEDS: ENOXAPARIN 40 MG/0.4 ML SYRINGE SUB-Q (08:13)
[2020-05-31] MEDS: FUROSEMIDE INJ 40 MG/4 ML VIAL IV PUSH (08:13)
[2020-05-31] MEDS: busPIRone HCL 10 MG TABLET FEED TUBE ×3 (08:14→17:11)
[2020-05-31] MEDS: FAMOTIDINE 20 MG TABLET FEED TUBE ×2 (08:14→17:11)
[2020-05-31] MEDS: FOLIC ACID 1 MG TABLET FEED TUBE (08:15)
--- NOTE | 2020-05-31 09:02 | WPDINTPN ---
Progress Note: A&P Assessment and Plan (1) Aspiration into airway: Code(s): T17.908A - Unspecified foreign body in respiratory tract, part unspecified causing other injury, initial encounter Status: Acute Assessment and Plan: Patient has a PEG tube, bedside RN suctioning tube feeds from his ETT likely secondary to aspiration around the ETT. -05/29/2020: Placement of Jejunostomy tube - PEG tube connected to low intermittent suction to prevent any aspiration (2) Acute respiratory failure with hypoxia and hypercarbia: Code(s): J96.01 - Acute respiratory failure with hypoxia; J96.02 - Acute respiratory failure with hypercapnia Status: Acute Assessment and Plan: Acute Respiratory failure secondary to recurrent aspiration pneumonia from tube feeds or secretions Continue full mechanical ventilation support to prevent hypo -tolerated PSV 03/05. -chest x-ray shows Continued improvement in pneumonia with residual mild opacities in the right upper lung zone. Continue Bronchodilators COVID-19 PCR negative Patient is off all sedation, will place patient on SBT and evaluate for extubation (3) Septic shock: Code(s): A41.9 - Sepsis, unspecified organism; R65.21 - Severe sepsis with septic shock Status: Acute Assessment and Plan: RESOLVED Patient arrived from the ER hypotensive w/ BP of 77/44 mm Hg. He was treated with another 500 cc IV fluid bolus in the ICU and I placed a central line and ordered Levophed for vasopressor support. Source of sepsis appears to be pulmonary but may also be urinary. -Blood cultures are negative x2, urine cultures growing VRE -Unasyn for possible aspiration pneumonia -appreciate infectious disease evaluation and recommendations, since patient is afebrile, normal WBC count, the VRE in urine seems to be colonization -repeat urine cultures 05/27: No growth -lactic acid has normalized to 0.8 (2.9 on admission) (4) Pneumonia: Qualifiers: Aspiration pneumonia type: unspecified Laterality: bilateral Lung location: unspecified part of lung Pneumonia type: aspiration pneumonia Qualified Code(s): J69.0 - Pneumonitis due to inhalation of food and vomit Code(s): J18.9 - Pneumonia, unspecified organism Status: Acute Assessment and Plan: See above (5) Abnormal urinalysis: Code(s): R82.90 - Unspecified abnormal findings in urine Status: Acute Assessment and Plan: Suspected to be UTI. Urine culture VRE, could be colonization. Continue IV antibiotics as above (6) Suspected 2019 novel coronavirus infection: Code(s): Z20.828 - Contact with and (suspected) exposure to other viral communicable diseases Status: Acute Assessment and Plan: SARS-CoV-2 PCR is negative as of 05/24 -patient off all precautions and isolation (7) Dysphagia: Qualifiers: Dysphagia type: unspecified Qualified Code(s): R13.10 - Dysphagia, unspecified Code(s): R13.10 - Dysphagia, unspecified Status: Chronic Assessment and Plan: NPO. Started on trickle tube feeds for surgery, will discuss with surgery regarding increasing tube feeds today -PEG tube to low intermittent suction (8) Encephalopathy chronic: Code(s): G93.49 - Other encephalopathy Status: Chronic Assessment and Plan: Head CT IMPRESSION: 1. No acute intracranial findings or interval change. 2. Severely dilated ventricular system out of proportion to sulci, NPH versus central atrophy. 3. Bifrontal and bitemporal encephalomalacia. Posttraumatic? Patient has hydrocephalus listed as doses on his chronic medical history. Details unknown at this time All sedatives are on hold Currently off all sedation -patient is awake, follows simple commands Additional Plan DVT prophylaxis -Lovenox Stress ulcer prophylaxis - Protonix Nutrition -NPO Discussed with Alban, patient's daughter and guardian, updated her with patient's con
--- NOTE | 2020-05-31 10:59 | PCDIET ---
ICU Rounding Note: Patient has been receiving Jevity 1.2 at 10mL/hr via j-tube. PEG to suction with 200mL output thus far today. Recommend Jevity 1.2 goal rate of 65mL/hr x 22 hours/day for 1716kcal (35kcal/kg), 79g protein (1.6g/kg) and 1154mL free water to promote gradual weight gain once extubated. Would continue 30mL water flush every 4 hours at this time. Last recorded weight is 49.3kg which is stable. Bowel Motility: Last documented BM on 05/28/20. Labs Reviewed: Hgb (8.8), Hct (28.3), Glu (126), BUN (<2), Cr (0.4), Na (136) Meds Noted: Xopenex, Reglan, Pepcid, Folic Acid, Lasix Additional Notes: Right foot with stage I area; buttocks macerated. Following daily in ICU rounds. Assessing/reassessing every Thursday/Thursday.
[2020-05-31 11:47] LABS: Alveolar/Arterial O2 Gradient 43.4 mmHg; Base Excess ABG -0.4 mEq/l (+/-2.0); Fractional Inspired Oxygen 30 %; HCO3 ABG 23.1 mEq/l (22.0-26.0); Oxygen Content ABG 13.8 %vol (16.0-22.0); Oxygen Saturation ABG 98.8 % (95.0-100.0); Oxyhemoglobin 97.2 % THb (90.0-100.0); PCO2 ABG 33.8 mmHg (35.0-45.0); PO2 ABG 130.8 mmHg (80.0-100.0); PO2 FiO2 Ratio Arterial Blood 4.36 %; Total Hemoglobin 9.9 g/dL (12.0-18.0); pH ABG 7.453 (7.350-7.450)
[2020-05-31 11:48] LABS: Device VENTILATOR; Modified Allen's Test Pass; Site Drawn LEFT RADIAL
[2020-05-31 11:49] LABS: Arterial Blood Gas PEEP 5 cmH2O; Arterial Blood Gas Pressure Support 8 cmH2O; Arterial Blood Gas Vent Mode SPONTANEOUS
[2020-05-31 11:56] LABS: Glucose Point of Care 98 (65-105)
--- NOTE | 2020-05-31 14:17 | WPDINFPN2 ---
Progress Note: A&P Assessment and Plan (1) Aspiration into airway: Code(s): T17.908A - Unspecified foreign body in respiratory tract, part unspecified causing other injury, initial encounter Status: Acute Assessment and Plan: 1. Fever and respiratory distress, suspect aspiration of G tube feeding, vs (more likely) poor airway clearance of tracheal secretions. Findings better. NG on repeat urine culture. 2. Chronic Murphy with bacteriuria, no urine infection present 3. Chronic encephalopathy, stable REC Off AmpSulbactam (7 days) and stable. Subjective Date/time seen: 05/31/20 14:17 Interval history: awake extubated, minimally verbal Exam Narrative: Exam Narrative: afebrile Const: General: no acute distress Other: cachectic Neck: Neck: no JVD Resp: Auscultation: clear to auscultation bilaterally Cardio: Rate: regular rate Rhythm: regular rhythm Heart sounds: no murmurs GI: Inspection: non-distended GI Palp: Yes Soft to palpation and No Tenderness to palpation present (GI) Objective Data Vital Signs Vital Signs: Vital Signs - 24 hr 05/30/20 14:18 05/30/20 15:31 05/30/20 16:00 Temperature 36.8 C Pulse Rate 91 90 91 Respiratory Rate 20 21 H 22 H Blood Pressure 146/92 H Pulse Oximetry 100 100 05/30/20 16:50 05/30/20 17:55 05/30/20 18:00 Temperature Pulse Rate 99 95 94 Respiratory Rate 21 H Blood Pressure 133/103 H Pulse Oximetry 100 100 05/30/20 20:00 05/30/20 20:09 05/30/20 20:17 Temperature 36.9 C Pulse Rate 93 90 93 Respiratory Rate 21 H 21 H 19 Blood Pressure 126/76 Pulse Oximetry 98 05/30/20 20:18 05/30/20 22:00 05/30/20 23:15 Temperature Pulse Rate 93 99 95 Respiratory Rate 25 H Blood Pressure 147/98 H Pulse Oximetry 100 100 100 05/31/20 00:00 05/31/20 02:00 05/31/20 02:02 Temperature 36.7 C Pulse Rate 99 101 H 97 Respiratory Rate 26 H 23 H Blood Pressure 147/89 H 123/85 Pulse Oximetry 100 100 100 05/31/20 02:54 05/31/20 02:58 05/31/20 04:00 Temperature 36.8 C Pulse Rate 103 H 98 94 Respiratory Rate 29 H 25 H 22 H Blood Pressure 115/72 Pulse Oximetry 100 05/31/20 04:45 05/31/20 06:00 05/31/20 07:36 Temperature Pulse Rate 96 95 103 H Respiratory Rate 21 H 31 H Blood Pressure 138/85 Pulse Oximetry 100 100 100 05/31/20 07:46 05/31/20 07:58 05/31/20 08:00 Temperature 36.9 C Pulse Rate 100 100 98 Respiratory Rate 30 H 22 H 23 H Blood Pressure 117/75 Pulse Oximetry 100 100 05/31/20 09:56 05/31/20 10:00 05/31/20 10:52 Temperature Pulse Rate 99 98 94 Respiratory Rate 28 H Blood Pressure 128/81 Pulse Oximetry 100 100 05/31/20 11:29 05/31/20 12:00 05/31/20 12:16 Temperature 36.9 C Pulse Rate 93 94 102 H Respiratory Rate 23 H 24 H 31 H Blood Pressure 128/86 Pulse Oximetry 100 100 100 05/31/20 13:51 05/31/20 14:00 Temperature Pulse Rate 97 96 Respiratory Rate 33 H Blood Pressure 125/83 Pulse Oximetry 100 Intake/Output Intake/Output: Intake & Output 05/28/20 05/29/20 05/30/20 05/31/20 23:59 23:59 23:59 23:59 Intake Total 699 1330 2290 1065 Output Total 8596 911 1708 525 Balance -951 480 490 540 Meds/Results Medications: Active Medications Generic Name Dose Route Start Last Admin Trade Name Freq PRN Reason Stop Dose Admin Buspirone HCl 10 mg 05/28/20 09:00 05/31/20 12:18 Buspirone Hcl 10 Mg Tablet FEED TUBE 10 mg TID JERAMIE Administration Dextrose 12.5 gm 05/24/20 13:39 05/26/20 05:23 Dextrose 50% 25 Gm/50 Ml Syringe IV PUSH 12.5 gm PRN PRN Administration Hypoglycemia Protocol Diltiazem HCl 60 mg 05/28/20 07:33 05/31/20 12:18 Diltiazem Hcl 60 Mg Tablet FEED TUBE 60 mg Q6HR JERAMIE Administration Dornase Demetris 2.5 mg 05/27/20 08:00 05/31/20 07:36 Dornase Demetris Inh Soln 1 Mg/Ml 2.5 Ml Amp INHALATION 2.5 mg Q12HRT JERAMIE Administration Enoxaparin Sodium 40 mg 05/24/20 09:00 05/31/20 08:13 E
--- NOTE | 2020-05-31 16:39 | PM.IMPN ---
Progress Note: A&P Assessment and Plan (1) Acute respiratory failure with hypoxia and hypercarbia: Code(s): J96.01 - Acute respiratory failure with hypoxia; J96.02 - Acute respiratory failure with hypercapnia Status: Acute Assessment and Plan: Patient has been admitted to ICU. Strict NPO. Acute respiratory failure is likely secondary to aspiration pneumonia. COVID negative on 05/24/20. Influenza negative. Continue ventilatory support and probable extubate today. Continue IV abx. J tube placement 05/29 to try to avoid aspiration. G tube now to drain (2) Septic shock: Code(s): A41.9 - Sepsis, unspecified organism; R65.21 - Severe sepsis with septic shock Status: Acute Assessment and Plan: Lactic acid 2.9. WBC 18K with bandemia. Patient arrived from the ER hypotensive w/ BP of 77/44 mm Hg. He was treated with another 500 cc IV fluid bolus in the ICU and central line placed. Levophed ordered for vasopressor support but not required. Source of sepsis appears to be pulmonary. Repeat Lactic normal. BCx NGTD. UCx mentioned below. Finish 7 Day course of antibiotics today for aspiration. (3) Pneumonia: Qualifiers: Aspiration pneumonia type: unspecified Laterality: bilateral Lung location: unspecified part of lung Pneumonia type: aspiration pneumonia Qualified Code(s): J69.0 - Pneumonitis due to inhalation of food and vomit Code(s): J18.9 - Pneumonia, unspecified organism Status: Acute Assessment and Plan: CXR reviewed today showing improvement in the Rt lung airspace disease. Probably aspiration pneumonia. BCx and Sputum Cx negative. finish 7 Day antibiotic course today as above per ID . Continue bronchodilators. Wean vent as tolerated. J-tube placed 05/29 by surgery (4) Abnormal urinalysis: Code(s): R82.90 - Unspecified abnormal findings in urine Status: Acute Assessment and Plan: UA noted. Urine culture growing VRE but 10-49K; consider contaminate or colonization. Blood cultures no growth to date and sputum negative. Linezolid stopped. Continued 7 D Unasyn for aspiration per ID (5) Leukocytosis: Qualifiers: Leukocytosis type: unspecified Qualified Code(s): D72.829 - Elevated white blood cell count, unspecified Code(s): D72.829 - Elevated white blood cell count, unspecified Status: Acute Assessment and Plan: Secondary to severe sepsis and pneumonia. White count normal now. (6) Dysphagia: Qualifiers: Dysphagia type: unspecified Qualified Code(s): R13.10 - Dysphagia, unspecified Code(s): R13.10 - Dysphagia, unspecified Status: Chronic Assessment and Plan: Chronic with GTube in place. NPO Tolerating tube feeds now per J tube. (7) Encephalopathy chronic: Code(s): G93.49 - Other encephalopathy Status: Chronic Assessment and Plan: Patient with acute on chronic encephalopathy. Acute process related to above. 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 More alert now. (8) Anemia: Code(s): D64.9 - Anemia, unspecified Status: Acute Assessment and Plan: Appears to be chronic. Was stable last admission in the 8 range. Hemoglobin 8.8 today. Follow. (9) DVT prophylaxis: Code(s): Z29.9 - Encounter for prophylactic measures, unspecified Status: Acute Assessment and Plan: Lovenox Subjective Date/time seen: 05/31/20 16:39 Interval history: Date of service 05/31 60yo male with HTN, hydrocephalus and dementia who returns due to acute respiratory failure from recurrent aspiration. Patient intubated. He is alert. Suctioning 03/27- found tube feedings in his ETT so tube feeding were stopped. No significant hypoxia. surgery placed J tube 05/29 and tolerating feedings now Exam Narrative: Exam Narrative: AF 97.6 138/74
[2020-05-31 17:21] LABS: Glucose Point of Care 94 (65-105)
[2020-05-31 23:47] LABS: Glucose Point of Care 96 (65-105)
[2020-06-01] VITALS (16 sets, daily range): BP systolic 114–149; BP diastolic 67–81; PULSE 94–150; RESP 22–66; TEMP 36.7–37.8; O2SAT 96–100
[2020-06-01 05:17] LABS: Hematocrit 27.6 % (42.0-52.0); Hemoglobin 8.5 g/dL (14.0-18.0); Mean Corpuscular HGB Conc 30.8 g/dl (32-36); Mean Corpuscular Hemoglobin 23.6 pg (26-34); Mean Corpuscular Volume 76.7 fl (80-100); Mean Platelet Volume 9.4 fl (7.4-10.4); Platelet Count Result 408 k/mm3 (150-375); Red Cell Distribution Width 17.2 % (11.5-14.5); White Blood Count 6.9 K/mm3 (4.5-10.0)
[2020-06-01 05:32] LABS: Anion Gap 6 mmol/L (8-16); Blood Urea Nitrogen 3 mg/dL (9-20); Calcium 8.8 mg/dL (8.4-10.2); Carbon Dioxide 28 mmol/L (22-30); Chloride 101 mmol/L (98-107); Estimated CRCL calculation 110 ml/min; Estimated Glomerular Filt Rate > 60; Glucose 110 mg/dL (75-110); Potassium 3.7 mmol/L (3.4-5.0); Sodium 135 mmol/L (137-145)
[2020-06-01] MEDS: METOCLOPRAMIDE HCL 5 MG TABLET FEED TUBE (05:36)
[2020-06-01] MEDS: dilTIAZem HCL 60 MG TABLET FEED TUBE ×4 (05:36→21:04)
[2020-06-01] MEDS: CENTRAL LINE FLUSH 10 ML IV PUSH ×3 (05:38→17:06)
[2020-06-01] MEDS: FOLIC ACID 1 MG TABLET FEED TUBE (08:09)
[2020-06-01] MEDS: FAMOTIDINE 20 MG TABLET FEED TUBE ×2 (08:10→17:05)
[2020-06-01] MEDS: busPIRone HCL 10 MG TABLET FEED TUBE ×3 (08:10→17:05)
[2020-06-01] MEDS: ENOXAPARIN 40 MG/0.4 ML SYRINGE SUB-Q (08:10)
[2020-06-01] MEDS: DORNASE ALFA INH SOLN 1 MG/ML 2.5 ML AMP 2.5 MG INHALATION ×2 (08:46→21:16)
--- NOTE | 2020-06-01 09:00 | WPDINTPN ---
Progress Note: A&P Assessment and Plan (1) Aspiration into airway: Code(s): T17.908A - Unspecified foreign body in respiratory tract, part unspecified causing other injury, initial encounter Status: Acute Assessment and Plan: Patient has a PEG tube, bedside RN suctioning tube feeds from his ETT likely secondary to aspiration around the ETT. -05/29/2020: Placement of Jejunostomy tube - PEG tube connected to low intermittent suction to prevent any aspiration. -continue Reglan as patient continues to have significant biliary drainage to the PEG tube which is connected to low intermittent suction. Maintain low intermittent suction of PEG tube at all times as patient has the propensity for vomiting and aspiration (2) Acute respiratory failure with hypoxia and hypercarbia: Code(s): J96.01 - Acute respiratory failure with hypoxia; J96.02 - Acute respiratory failure with hypercapnia Status: Acute Assessment and Plan: Acute Respiratory failure secondary to recurrent aspiration pneumonia from tube feeds or secretions Successfully extubated on 05/31/2020 Continue Bronchodilators COVID-19 PCR negative (3) Septic shock: Code(s): A41.9 - Sepsis, unspecified organism; R65.21 - Severe sepsis with septic shock Status: Acute Assessment and Plan: RESOLVED -Blood cultures are negative x2, urine cultures growing VRE -appreciate infectious disease evaluation and recommendations, since patient is afebrile, normal WBC count, the VRE in urine seems to be colonization -repeat urine cultures 05/27: No growth (4) Pneumonia: Qualifiers: Aspiration pneumonia type: unspecified Laterality: bilateral Lung location: unspecified part of lung Pneumonia type: aspiration pneumonia Qualified Code(s): J69.0 - Pneumonitis due to inhalation of food and vomit Code(s): J18.9 - Pneumonia, unspecified organism Status: Acute Assessment and Plan: See above (5) Abnormal urinalysis: Code(s): R82.90 - Unspecified abnormal findings in urine Status: Acute Assessment and Plan: Suspected to be UTI. Urine culture VRE, could be colonization. (6) Suspected 2019 novel coronavirus infection: Code(s): Z20.828 - Contact with and (suspected) exposure to other viral communicable diseases Status: Acute Assessment and Plan: SARS-CoV-2 PCR is negative as of 05/24 -patient off all precautions and isolation (7) Dysphagia: Qualifiers: Dysphagia type: unspecified Qualified Code(s): R13.10 - Dysphagia, unspecified Code(s): R13.10 - Dysphagia, unspecified Status: Chronic Assessment and Plan: Tolerating tube feeds through jejunostomy tube -PEG tube to low intermittent suction (8) Encephalopathy chronic: Code(s): G93.49 - Other encephalopathy Status: Chronic Assessment and Plan: Head CT IMPRESSION: 1. No acute intracranial findings or interval change. 2. Severely dilated ventricular system out of proportion to sulci, NPH versus central atrophy. 3. Bifrontal and bitemporal encephalomalacia. Posttraumatic? Patient has hydrocephalus listed as doses on his chronic medical history. Details unknown at this time All sedatives are on hold Currently off all sedation -patient is awake, follows simple commands Additional Plan DVT prophylaxis -Lovenox Stress ulcer prophylaxis - Protonix Nutrition -tube feeds Discussed with Alban, patient's daughter and guardian, updated her with patient's condition and plan of care. Code Status - Full Code Total Critical Care Time - 32 minutes Due to a high probability of clinically significant, life threatening deterioration, the patient required my highest level of preparedness to intervene emergently and I personally spent this critical care time directly and personally managing the patient. This critical care time included obtaining a history; examining the patien
[2020-06-01] MEDS: METOCLOPRAMIDE HCL 10 MG TABLET FEED TUBE ×2 (11:20→17:06)
[2020-06-01 11:27] LABS: Glucose Point of Care 122 (65-105)
--- NOTE | 2020-06-01 12:17 | PC.NURSE ---
Patient transferred from ICU bed 3. Patient oriented to room and policies.
--- NOTE | 2020-06-01 12:26 | PM.IMPN ---
Progress Note: A&P Assessment and Plan (1) Acute respiratory failure with hypoxia and hypercarbia: Code(s): J96.01 - Acute respiratory failure with hypoxia; J96.02 - Acute respiratory failure with hypercapnia Status: Acute Assessment and Plan: Patient was admitted to ICU. Strict NPO. Acute respiratory failure is likely secondary to aspiration pneumonia. COVID negative on 05/24/20. Influenza negative. Initially ventilated mechanically and extubated 05/31. Finished IV abx. J tube placement 05/29 to try to avoid aspiration. G tube now to drain (2) Septic shock: Code(s): A41.9 - Sepsis, unspecified organism; R65.21 - Severe sepsis with septic shock Status: Acute Assessment and Plan: Lactic acid 2.9. WBC 18K with bandemia. Patient arrived from the ER hypotensive w/ BP of 77/44 mm Hg. He was treated with another 500 cc IV fluid bolus in the ICU and central line placed. Levophed ordered for vasopressor support but not required. Source of sepsis appears to be pulmonary. Repeat Lactic normal. BCx NGTD. UCx mentioned below. Finished 7 Day course of antibiotics 05/31 for aspiration. (3) Pneumonia: Qualifiers: Aspiration pneumonia type: unspecified Laterality: bilateral Lung location: unspecified part of lung Pneumonia type: aspiration pneumonia Qualified Code(s): J69.0 - Pneumonitis due to inhalation of food and vomit Code(s): J18.9 - Pneumonia, unspecified organism Status: Acute Assessment and Plan: CXR reviewed today showing improvement in the Rt lung airspace disease. Probably aspiration pneumonia. BCx and Sputum Cx negative. finished 7 Day antibiotic course 05/31 as per ID . Continue bronchodilators. Extubated 05/31 and now on RA. J-tube placed 05/29 by surgery (4) Abnormal urinalysis: Code(s): R82.90 - Unspecified abnormal findings in urine Status: Acute Assessment and Plan: UA noted. Urine culture growing VRE but 10-49K; consider contaminate or colonization. Blood cultures no growth to date and sputum negative. Linezolid stopped. Finished 7 D Unasyn for aspiration per ID (5) Leukocytosis: Qualifiers: Leukocytosis type: unspecified Qualified Code(s): D72.829 - Elevated white blood cell count, unspecified Code(s): D72.829 - Elevated white blood cell count, unspecified Status: Acute Assessment and Plan: Secondary to severe sepsis and pneumonia. White count normal now. (6) Dysphagia: Qualifiers: Dysphagia type: unspecified Qualified Code(s): R13.10 - Dysphagia, unspecified Code(s): R13.10 - Dysphagia, unspecified Status: Chronic Assessment and Plan: Chronic with GTube in place. NPO Tolerating tube feeds now per J tube. (7) Encephalopathy chronic: Code(s): G93.49 - Other encephalopathy Status: Chronic Assessment and Plan: Patient with acute on chronic encephalopathy. Acute process related to above. 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 More alert now. (8) Anemia: Code(s): D64.9 - Anemia, unspecified Status: Acute Assessment and Plan: Appears to be chronic. Was stable last admission in the 8 range. Hemoglobin 8.5 today. Follow. (9) DVT prophylaxis: Code(s): Z29.9 - Encounter for prophylactic measures, unspecified Status: Acute Assessment and Plan: Lovenox Subjective Date/time seen: 06/01/20 12:26 Interval history: Date of service 06/01/20 60yo male with HTN, hydrocephalus and dementia who returns due to acute respiratory failure from recurrent aspiration. Patient extubated 05/31. He is alert. Suctioning 03/27- found tube feedings in his ETT so tube feeding were stopped. No significant hypoxia. surgery placed J tube 05/29 and tolerating feedings now still lots of gastric secretions and G tube to
--- NOTE | 2020-06-01 12:56 | PC.NURSE ---
1200-Patient transferred to [address] [place] [address] with all belongings, report given to Fior RN and informed of patient requiring suction setup in the room
--- NOTE | 2020-06-01 15:35 | PCDIET ---
Nutrition Follow-Up Complete: Inadequate oral intake related to inability to feed orally as evidence by need for mechanical ventilation Total intake will meet estimated nutrition needs Goal: Goal met. Continue goal. Pt current nutrition is Jevity 1.2 at goal of 65ml/hr. Nutrition recommendation: agree Last recorded weight is 46.9 kg, down from 49.3kg yesterday ; + 90 I/O Bowel Motility: 2 BMs today Labs Reviewed:Na 135, Glucose 122 Meds Noted: Insulin, Reglan, Folic Acid Additional Notes: Pt extubated yesterday 05/31. Pt tolerating Jevity 1.2 at goal of 65ml/hr over 22hrs to provide 1716 kcals, 79g protein, and 1154ml of free water via Jtube. Gtube set to suction at all times; 300ml out yesterday. Water flush increased to 60ml q 4hrs to meet remaining fluid needs in absence of other IV fluids. Following nutrition tolerance, weight, BMs, labs every T/F.
[2020-06-01 17:18] LABS: Glucose Point of Care 95 (65-105)
[2020-06-01] MEDS: FUROSEMIDE INJ 40 MG/4 ML VIAL 20 MG IV PUSH (22:33)
[2020-06-01 22:35] LABS: Alveolar/Arterial O2 Gradient 68.1 mmHg; Base Excess ABG -0.3 mEq/l (+/-2.0); Fractional Inspired Oxygen 21 %; HCO3 ABG 22.2 mEq/l (22.0-26.0); Oxyhemoglobin 83.8 % THb (90.0-100.0); PCO2 ABG 29.2 mmHg (35.0-45.0); PO2 FiO2 Ratio Arterial Blood 2.22 %; pH ABG 7.498 (7.350-7.450)
[2020-06-01 22:36] LABS: Oxygen Saturation ABG 86.9 % (95.0-100.0); PO2 ABG 46.7 mmHg (80.0-100.0)
[2020-06-01 22:37] LABS: Device ROOM AIR; Modified Allen's Test Pass; Site Drawn LEFT RADIAL
--- NOTE | 2020-06-01 22:54 | PM.EVENT ---
Event Note Event Note Event Note: I was called to the floor since the patient was hypoxic and we applied oxygen at 6 L initially. The patient sound like he had coarse lung sounds. We tried a neb treatment tried some IV Lasix. We tried to use the anchor to suction him. We did some deep suctioning and got a large amount of sputum out possibly had a mucus plug. Once we suction him deeply then the patient was able to cough up some more and it looks like thick green sputum. Patient developed a fever and I aj some blood cultures and start him empirically on Zosyn. We got some ABGs which is shows that he is hypoxic. He is now down oxygen at 2 L per nasal cannula. At 1 point his respirations were 60 a minute. It initially I thought that we may have to reintubate the patient. However we repositioned him in bed and suction him placed small amount of oxygen and gave him IV Tylenol and started him on IV antibiotics and the patient seemed to be responding to that. I did showed off his tube feedings his it looks like patient may be aspirating his tube feedings. His belly was distended. So I held his tube feedings for tonight. Patient is tachycardic we did give him some Cardizem earlier which did nothing for him most likely this is due to his fever. Will reassess the patient once he gets the IV Tylenol. We also gave the patient a nebulizer treatment as well. Which was his Xopenex.
[2020-06-01 23:23] LABS: Glucose Point of Care 148 (65-105)
[2020-06-01] MEDS: ONDANSETRON INJ 4 MG/2 ML VIAL IV PUSH (23:32)
[2020-06-02] VITALS (13 sets, daily range): BP systolic 111–123; BP diastolic 71–83; PULSE 82–115; RESP 20–38; TEMP 36.3–36.7; O2SAT 95–100
[2020-06-02] MEDS: METOPROLOL TARTRATE INJ 5 MG/5 ML VIAL IV PUSH ×2 (01:38→05:17)
[2020-06-02 05:15] LABS: Glucose Point of Care 140 (65-105)
[2020-06-02 05:46] LABS: Hematocrit 33.7 % (42.0-52.0); Hemoglobin 10.5 g/dL (14.0-18.0); Mean Corpuscular HGB Conc 31.2 g/dl (32-36); Mean Corpuscular Hemoglobin 24.3 pg (26-34); Mean Platelet Volume 9.7 fl (7.4-10.4); Platelet Count Result 478 k/mm3 (150-375); Red Blood Count 4.32 M/mm3 (4.6-6.20); Red Cell Distribution Width 17.5 % (11.5-14.5); White Blood Count 29.3 K/mm3 (4.5-10.0)
[2020-06-02 06:23] LABS: Anion Gap 11 mmol/L (8-16); Blood Urea Nitrogen 12 mg/dL (9-20); Calcium 9.3 mg/dL (8.4-10.2); Carbon Dioxide 28 mmol/L (22-30); Chloride 100 mmol/L (98-107); Estimated CRCL calculation 48 ml/min; Estimated Glomerular Filt Rate > 60; Glucose 148 mg/dL (75-110); Potassium 5.1 mmol/L (3.4-5.0); Sodium 139 mmol/L (137-145)
[2020-06-02] MEDS: DORNASE ALFA INH SOLN 1 MG/ML 2.5 ML AMP 2.5 MG INHALATION ×2 (07:40→19:38)
[2020-06-02] MEDS: FAMOTIDINE 20 MG TABLET FEED TUBE ×2 (08:31→17:37)
[2020-06-02] MEDS: FOLIC ACID 1 MG TABLET FEED TUBE (08:31)
[2020-06-02] MEDS: ENOXAPARIN 40 MG/0.4 ML SYRINGE SUB-Q (08:31)
[2020-06-02] MEDS: busPIRone HCL 10 MG TABLET FEED TUBE ×3 (08:31→17:37)
--- NOTE | 2020-06-02 10:41 | WPDINFPN2 ---
Progress Note: A&P Assessment and Plan (1) Aspiration into airway: Code(s): T17.908A - Unspecified foreign body in respiratory tract, part unspecified causing other injury, initial encounter Status: Acute Assessment and Plan: 1. Fever, resolved. 2. Chronic Murphy with bacteriuria, no urine infection present 3. Chronic encephalopathy, stable 4. Respiratory distress with leukocytosis, due to poor airway clearance of secretions, not truly aspiration pneumonia. I personally reviewed his CXR, no change change since yesterday. REC Cefepime #1, f/u cbc, bc's done, short term antibiotics anticipated. Aggressive pulmonary toilet is mandatory to prevent future episodes. Subjective Date/time seen: 06/02/20 10:41 Interval history: non verbal Exam Narrative: Exam Narrative: afebrile Const: General: no acute distress Resp: Effort & Inspection: normal respiratory effort Auscultation: rales Cardio: Rate: regular rate Rhythm: regular rhythm Heart sounds: no murmurs GI: Inspection: non-distended GI Palp: Yes Firmness to palpation present (GI) and No Tenderness to palpation present (GI) Objective Data Vital Signs Vital Signs: Vital Signs - 24 hr 06/01/20 14:00 06/01/20 15:27 06/01/20 20:39 Temperature 36.7 C 36.8 C Pulse Rate 96 94 150 H Respiratory Rate 22 H 26 H 28 H Blood Pressure 130/72 149/69 H Pulse Oximetry 100 96 06/01/20 21:16 06/01/20 21:26 06/01/20 23:00 Temperature 37.8 C H Pulse Rate 130 H 120 H 150 H Respiratory Rate 54 H 50 H 66 H Blood Pressure Pulse Oximetry 98 06/02/20 01:38 06/02/20 02:55 06/02/20 05:17 Temperature Pulse Rate 115 H 97 101 H Respiratory Rate 38 H Blood Pressure Pulse Oximetry 06/02/20 07:37 06/02/20 07:39 06/02/20 07:45 Temperature 36.3 C L Pulse Rate 82 98 Respiratory Rate 20 22 H Blood Pressure 111/83 Pulse Oximetry 96 100 06/02/20 07:47 Temperature Pulse Rate 97 Respiratory Rate 20 Blood Pressure Pulse Oximetry Intake/Output Intake/Output: Intake & Output 05/30/20 05/31/20 06/01/20 06/02/20 23:59 23:59 23:59 23:59 Intake Total 2290 1295 940 200 Output Total 1800 1724 1056 175 Balance 388 -715 -110 25 Meds/Results Medications: Active Medications Generic Name Dose Route Start Last Admin Trade Name Freq PRN Reason Stop Dose Admin Buspirone HCl 10 mg 05/28/20 09:00 06/02/20 08:31 Buspirone Hcl 10 Mg Tablet FEED TUBE 10 mg TID JERAMIE Administration Dextrose 12.5 gm 05/24/20 13:39 05/26/20 05:23 Dextrose 50% 25 Gm/50 Ml Syringe IV PUSH 12.5 gm PRN PRN Administration Hypoglycemia Protocol Diltiazem HCl 60 mg 05/28/20 07:33 06/02/20 04:18 Diltiazem Hcl 60 Mg Tablet FEED TUBE Not Given Q6HR JERAMIE Dornase Demetris 2.5 mg 05/27/20 08:00 06/02/20 07:40 Dornase Demetris Inh Soln 1 Mg/Ml 2.5 Ml Amp INHALATION 2.5 mg Q12HRT JERAMIE Administration Enoxaparin Sodium 40 mg 05/24/20 09:00 06/02/20 08:31 Enoxaparin 40 Mg/0.4 Ml Syringe SUB-Q 40 mg DAILY JERAMIE Administration Famotidine 20 mg 05/28/20 09:00 06/02/20 08:31 Famotidine 20 Mg Tablet FEED TUBE 20 mg BID JERAMIE Administration Folic Acid 1 mg 05/28/20 09:00 06/02/20 08:31 Folic Acid 1 Mg Tablet FEED TUBE 1 mg DAILY JERAMIE Administration Glucagon 1 mg 05/24/20 13:39 Glucagon For Inj 1 Mg Vial IM PRN PRN Hypoglycemia Protocol Glucose 15 gm 05/24/20 13:39 Glucose Oral Gel 15 Gm Of Glucse In 37.5 Gm Tube PO PRN PRN Hypoglycemia Protocol Dextrose 1,000 mls @ 100 mls/hr 05/24/20 13:39 Dextrose 5% 1,000 Ml IVPB PRN PRN Hypoglycemia Protocol Insulin Aspart 3 - 6 units 05/24/20 18:00 06/02/20 05:16 Insulin Aspart (*Bkc) 100 Units/Ml SUB-Q Not Given Q6H JERAMIE Protocol Levalbuterol HCl 1.25 mg 05/24/20 08:00 06/02/20 07:40 Levalbuterol Neb 1.25 Mg/0.5 Ml INHALATION 1.25 mg Q6HRT JERAMIE Administration Met
[2020-06-02] MEDS: dilTIAZem HCL 60 MG TABLET FEED TUBE ×3 (12:07→23:41)
[2020-06-02] MEDS: METOCLOPRAMIDE HCL 10 MG TABLET FEED TUBE ×3 (12:07→23:41)
[2020-06-02 12:45] LABS: Glucose Point of Care 119 (65-105)
--- NOTE | 2020-06-02 16:02 | PM.IMPN ---
Progress Note: A&P Assessment and Plan (1) Acute respiratory failure with hypoxia and hypercarbia: Code(s): J96.01 - Acute respiratory failure with hypoxia; J96.02 - Acute respiratory failure with hypercapnia Status: Acute Assessment and Plan: . Acute respiratory failure is likely secondary to aspiration pneumonia. COVID negative on 05/24/20. Influenza negative. Initially ventilated mechanically and extubated 05/31. Finished IV abx. restarted today per ID after hypoxic episode PM 06/01 J tube placement 05/29 to try to avoid aspiration. G tube now to drain (2) Septic shock: Code(s): A41.9 - Sepsis, unspecified organism; R65.21 - Severe sepsis with septic shock Status: Acute Assessment and Plan: Lactic acid 2.9. WBC 18K with bandemia. Patient arrived from the ER hypotensive w/ BP of 77/44 mm Hg. He was treated with another 500 cc IV fluid bolus in the ICU and central line placed. Levophed ordered for vasopressor support but not required. Source of sepsis appears to be pulmonary. Repeat Lactic normal. BCx NGTD. UCx mentioned below. Finished 7 Day course of antibiotics 05/31 for aspiration. (3) Pneumonia: Qualifiers: Aspiration pneumonia type: unspecified Laterality: bilateral Lung location: unspecified part of lung Pneumonia type: aspiration pneumonia Qualified Code(s): J69.0 - Pneumonitis due to inhalation of food and vomit Code(s): J18.9 - Pneumonia, unspecified organism Status: Acute Assessment and Plan: CXR reviewed today showing improvement in the Rt lung airspace disease. Probably aspiration pneumonia. BCx and Sputum Cx negative. finished 7 Day antibiotic course 05/31 as per ID . Continue bronchodilators. Extubated 05/31 and now on RA. J-tube placed 05/29 by surgery repeat course of antibiotics started / after hypoxic episode and probable poor handling of his secretions. As per ID cxr no change (4) Abnormal urinalysis: Code(s): R82.90 - Unspecified abnormal findings in urine Status: Acute Assessment and Plan: UA noted. Urine culture growing VRE but 10-49K; consider contaminate or colonization. Blood cultures no growth to date and sputum negative. Linezolid stopped. Finished 7 D Unasyn for aspiration per ID (5) Leukocytosis: Qualifiers: Leukocytosis type: unspecified Qualified Code(s): D72.829 - Elevated white blood cell count, unspecified Code(s): D72.829 - Elevated white blood cell count, unspecified Status: Acute Assessment and Plan: Secondary to severe sepsis and pneumonia. White count normalize but back up today. restarted cefipime and will follow (6) Dysphagia: Qualifiers: Dysphagia type: unspecified Qualified Code(s): R13.10 - Dysphagia, unspecified Code(s): R13.10 - Dysphagia, unspecified Status: Chronic Assessment and Plan: Chronic with GTube in place. NPO Tolerating tube feeds now per J tube. (7) Encephalopathy chronic: Code(s): G93.49 - Other encephalopathy Status: Chronic Assessment and Plan: Patient with acute on chronic encephalopathy. Acute process related to above. 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 More alert now. (8) Anemia: Code(s): D64.9 - Anemia, unspecified Status: Acute Assessment and Plan: Appears to be chronic. Was stable last admission in the 8 range. Hemoglobin 10.5 today. Follow. (9) DVT prophylaxis: Code(s): Z29.9 - Encounter for prophylactic measures, unspecified Status: Acute Assessment and Plan: Lovenox Subjective Date/time seen: 06/02/20 16:02 Interval history: Date of service 06/02/20 60yo male with HTN, hydrocephalus and dementia who returns due to acute respiratory failure from recurrent aspiration. Patient extubated 05/31. He is alert. Suctioning 03/27-
[2020-06-02 17:37] LABS: Glucose Point of Care 114 (65-105)
[2020-06-02 20:08] LABS: SARS-CoV-2 RNA PCR Negative
[2020-06-03] VITALS (18 sets, daily range): BP systolic 119–131; BP diastolic 66–75; PULSE 82–127; RESP 20–46; TEMP 36.6–38.2; O2SAT 85–100
[2020-06-03 00:08] LABS: Glucose Point of Care 126 (65-105)
[2020-06-03] MEDS: dilTIAZem HCL 60 MG TABLET FEED TUBE ×3 (05:03→17:16)
[2020-06-03] MEDS: METOCLOPRAMIDE HCL 10 MG TABLET FEED TUBE ×3 (05:03→17:16)
[2020-06-03 05:54] LABS: Hematocrit 30.9 % (42.0-52.0); Hemoglobin 9.5 g/dL (14.0-18.0); Mean Corpuscular HGB Conc 30.7 g/dl (32-36); Mean Corpuscular Hemoglobin 23.5 pg (26-34); Mean Corpuscular Volume 76.3 fl (80-100); Mean Platelet Volume 10.1 fl (7.4-10.4); Platelet Count Result 518 k/mm3 (150-375); Red Blood Count 4.05 M/mm3 (4.6-6.20); Red Cell Distribution Width 17.5 % (11.5-14.5); White Blood Count 19.4 K/mm3 (4.5-10.0)
[2020-06-03 06:26] LABS: Anion Gap 9 mmol/L (8-16); Blood Urea Nitrogen 20 mg/dL (9-20); Calcium 9.2 mg/dL (8.4-10.2); Carbon Dioxide 27 mmol/L (22-30); Chloride 103 mmol/L (98-107); Estimated CRCL calculation 70 ml/min; Estimated Glomerular Filt Rate > 60; Glucose 155 mg/dL (75-110); Potassium 3.8 mmol/L (3.4-5.0); Sodium 139 mmol/L (137-145)
[2020-06-03 06:47] LABS: Glucose Point of Care 121 (65-105)
[2020-06-03] MEDS: DORNASE ALFA INH SOLN 1 MG/ML 2.5 ML AMP 2.5 MG INHALATION ×2 (08:31→19:55)
[2020-06-03] MEDS: FAMOTIDINE 20 MG TABLET FEED TUBE ×2 (08:33→17:16)
[2020-06-03] MEDS: FOLIC ACID 1 MG TABLET FEED TUBE (08:33)
[2020-06-03] MEDS: ENOXAPARIN 40 MG/0.4 ML SYRINGE SUB-Q (08:33)
[2020-06-03] MEDS: busPIRone HCL 10 MG TABLET FEED TUBE ×3 (08:33→17:16)
[2020-06-03 12:28] LABS: Glucose Point of Care 122 (65-105)
--- NOTE | 2020-06-03 14:42 | PM.IMPN ---
Progress Note: A&P Assessment and Plan (1) Acute respiratory failure with hypoxia and hypercarbia: Code(s): J96.01 - Acute respiratory failure with hypoxia; J96.02 - Acute respiratory failure with hypercapnia Status: Acute Assessment and Plan: . Acute respiratory failure is likely secondary to aspiration pneumonia. COVID negative on 05/24/20. Influenza negative. Initially ventilated mechanically and extubated 05/31. Finished IV abx. restarted 1/2 per ID after hypoxic episode PM 06/01 J tube placement 05/29 to try to avoid aspiration. G tube now to drain (2) Septic shock: Code(s): A41.9 - Sepsis, unspecified organism; R65.21 - Severe sepsis with septic shock Status: Acute Assessment and Plan: Lactic acid 2.9. WBC 18K with bandemia. Patient arrived from the ER hypotensive w/ BP of 77/44 mm Hg. He was treated with another 500 cc IV fluid bolus in the ICU and central line placed. Levophed ordered for vasopressor support but not required. Source of sepsis appears to be pulmonary. Repeat Lactic normal. BCx NGTD. UCx mentioned below. Finished 7 Day course of antibiotics 05/31 for aspiration. Restarted 06/02 (3) Pneumonia: Qualifiers: Aspiration pneumonia type: unspecified Laterality: bilateral Lung location: unspecified part of lung Pneumonia type: aspiration pneumonia Qualified Code(s): J69.0 - Pneumonitis due to inhalation of food and vomit Code(s): J18.9 - Pneumonia, unspecified organism Status: Acute Assessment and Plan: CXR reviewed today showing improvement in the Rt lung airspace disease. Probably aspiration pneumonia. BCx and Sputum Cx negative. finished 7 Day antibiotic course 05/31 as per ID . Continue bronchodilators. Extubated 05/31 and now on RA. J-tube placed 05/29 by surgery repeat course of antibiotics started /2 after hypoxic episode and probable poor handling of his secretions. As per ID cxr no change (4) Abnormal urinalysis: Code(s): R82.90 - Unspecified abnormal findings in urine Status: Acute Assessment and Plan: UA noted. Urine culture growing VRE but 10-49K; consider contaminate or colonization. Blood cultures no growth to date and sputum negative. Linezolid stopped. Finished 7 D Unasyn for aspiration per ID (5) Leukocytosis: Qualifiers: Leukocytosis type: unspecified Qualified Code(s): D72.829 - Elevated white blood cell count, unspecified Code(s): D72.829 - Elevated white blood cell count, unspecified Status: Acute Assessment and Plan: Secondary to severe sepsis and pneumonia. White count normalize but back up 1/2. restarted cefipime and down to 19K today. (6) Dysphagia: Qualifiers: Dysphagia type: unspecified Qualified Code(s): R13.10 - Dysphagia, unspecified Code(s): R13.10 - Dysphagia, unspecified Status: Chronic Assessment and Plan: Chronic with GTube in place. NPO Tolerating tube feeds now per J tube. (7) Encephalopathy chronic: Code(s): G93.49 - Other encephalopathy Status: Chronic Assessment and Plan: Patient with acute on chronic encephalopathy. Acute process related to above. 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 More alert now. (8) Anemia: Code(s): D64.9 - Anemia, unspecified Status: Acute Assessment and Plan: Appears to be chronic. Was stable last admission in the 8 range. Hemoglobin 10.5 06/21. Follow. (9) DVT prophylaxis: Code(s): Z29.9 - Encounter for prophylactic measures, unspecified Status: Acute Assessment and Plan: Lovenox Subjective Date/time seen: 06/03/20 14:42 Interval history: Date of service 06/03/20 60yo male with HTN, hydrocephalus and dementia who returns due to acute respiratory failure from recurrent aspiration. Patient extubated 05/31. He is alert. Suct
[2020-06-03] MEDS: ACETAMINOPHEN ELIXIR 325 MG/10.15 ML UDC 650 MG FEED TUBE (17:19)
[2020-06-03 17:45] LABS: Glucose Point of Care 143 (65-105)
--- NOTE | 2020-06-03 22:19 | ECG_ITS ---
Measurements Intervals [place] Rate: 119 P: 1 [place]: 108 QRS: -35 QRSD: 92 T: 47 QT: 321 QTc: 452 Interpretive Statements SINUS TACHYCARDIA WITH SHORT TX INTERVAL LEFT AXIS DEVIATION CANNOT RULE OUT SEPTAL INFARCT, AGE INDETERMINATE BORDERLINE T WAVE ABNORMALITY- INFERIOR LEADS BASELINE WANDER- V6 ABNORMAL ECG Electronically Signed On 06-04-2020 7:09:44 DATA SOFTWARE ENGINEER by Leon Balderas D.O.
[2020-06-03 22:45] LABS: Alveolar/Arterial O2 Gradient 121.9 mmHg; Base Excess ABG 0.8 mEq/l (+/-2.0); Fractional Inspired Oxygen 36 %; HCO3 ABG 24.9 mEq/l (22.0-26.0); Oxygen Saturation ABG 97.2 % (95.0-100.0); Oxyhemoglobin 95.9 % THb (90.0-100.0); PCO2 ABG 37.9 mmHg (35.0-45.0); PO2 ABG 90.8 mmHg (80.0-100.0); PO2 FiO2 Ratio Arterial Blood 2.52 %; Total Hemoglobin 10.3 g/dL (12.0-18.0); pH ABG 7.436 (7.350-7.450)
[2020-06-03 22:46] LABS: Device NASAL CANNULA; Modified Allen's Test Pass; Site Drawn RIGHT RADIAL
[2020-06-04] VITALS (20 sets, daily range): BP systolic 104–127; BP diastolic 65–69; PULSE 101–126; RESP 16–44; TEMP 36.7–37.6; O2SAT 95–100
[2020-06-04] MEDS: dilTIAZem HCL 60 MG TABLET FEED TUBE ×5 (00:46→23:36)
[2020-06-04] MEDS: METOCLOPRAMIDE HCL 10 MG TABLET FEED TUBE ×5 (00:47→23:36)
[2020-06-04 00:54] LABS: Glucose Point of Care 117 (65-105)
[2020-06-04] MEDS: SODIUM CHLORIDE 0.9% IV 500 ML 999 ML IV CONT (04:05)
[2020-06-04] MEDS: ACETAMINOPHEN ELIXIR 325 MG/10.15 ML UDC 650 MG FEED TUBE ×2 (06:12→20:22)
[2020-06-04 06:21] LABS: Basophils Percent Auto 0.2 % (0.2-1.2); Eosinophils Absolute Auto 0.4 K/mm3 (0-0.3); Eosinophils Percent Auto 2.3 % (0-4.4); Hematocrit 28.9 % (42.0-52.0); Hemoglobin 8.9 g/dL (14.0-18.0); Immature Granulocyte Absolute 0.09 K/mm3 (0.00-0.031); Immature Granulocyte Percent A 0.5 % (0-0.5); Lymphocytes Absolute Auto 1.17 K/mm3 (0.9-3.2); Lymphocytes Percent Auto 6.5 % (18.3-44.2); Mean Corpuscular HGB Conc 30.8 g/dl (32-36); Mean Corpuscular Hemoglobin 23.5 pg (26-34); Mean Corpuscular Volume 76.5 fl (80-100); Mean Platelet Volume 9.9 fl (7.4-10.4); Monocytes Absolute Auto 1.1 K/mm3 (0.1-0.6); Monocytes Percent Auto 6.2 % (2.6-8.5); Neutrophils Absolute Auto 15.2 K/mm3 (1.3-6.7); Neutrophils Percent Auto 84.3 % (45.5-73.1); Platelet Count Result 517 k/mm3 (150-375); Red Blood Count 3.78 M/mm3 (4.6-6.20); Red Cell Distribution Width 17.7 % (11.5-14.5)
[2020-06-04 06:26] LABS: Glucose Point of Care 136 (65-105)
[2020-06-04 06:34] LABS: Anion Gap 8 mmol/L (8-16); Blood Urea Nitrogen 26 mg/dL (9-20); Calcium 8.9 mg/dL (8.4-10.2); Carbon Dioxide 28 mmol/L (22-30); Chloride 105 mmol/L (98-107); Estimated CRCL calculation 70 ml/min; Estimated Glomerular Filt Rate > 60; Glucose 145 mg/dL (75-110); Potassium 4.4 mmol/L (3.4-5.0); Sodium 141 mmol/L (137-145)
[2020-06-04] MEDS: FAMOTIDINE 20 MG TABLET FEED TUBE ×2 (08:36→17:53)
[2020-06-04] MEDS: busPIRone HCL 10 MG TABLET FEED TUBE ×3 (08:36→17:51)
[2020-06-04] MEDS: FOLIC ACID 1 MG TABLET FEED TUBE (08:36)
[2020-06-04] MEDS: ENOXAPARIN 40 MG/0.4 ML SYRINGE SUB-Q (08:36)
[2020-06-04] MEDS: DORNASE ALFA INH SOLN 1 MG/ML 2.5 ML AMP 2.5 MG INHALATION ×2 (09:07→19:57)
--- NOTE | 2020-06-04 13:44 | WPDINFPN2 ---
Progress Note: A&P Assessment and Plan (1) Aspiration into airway: Code(s): T17.908A - Unspecified foreign body in respiratory tract, part unspecified causing other injury, initial encounter Status: Acute Assessment and Plan: 1. Fever, back again. 2. Chronic Murphy with bacteriuria, no urine infection present 3. Chronic encephalopathy, stable 4. Respiratory distress with leukocytosis, due to poor airway clearance of secretions, not truly aspiration pneumonia. WBC still high. REC Cefepime #3, continue at least another 1 day. Aggressive pulmonary toilet is mandatory to prevent future episodes. Subjective Date/time seen: 06/04/20 13:44 Interval history: non verbal, looks comfortable Exam Narrative: Exam Narrative: t max 38.2 Const: General: no acute distress Other: looks chronically ill Eyes: General: appearance normal, both eyes and all related structures Resp: Effort & Inspection: normal respiratory effort Other: coarse breath sounds Vesicular Cardio: Rate: regular rate Rhythm: regular rhythm Heart sounds: no murmurs GI: GI Palp: Yes Firmness to palpation present (GI), No Tenderness to palpation present (GI) and No Guarding due to palpation present (GI) Skin: General skin exam: normal color and no rashes or lesions noted Objective Data Vital Signs Vital Signs: Vital Signs - 24 hr 06/03/20 16:37 06/03/20 16:44 06/03/20 17:19 Temperature 38.2 C H 38.2 C H Pulse Rate 127 H Respiratory Rate 46 H Blood Pressure 122/67 Pulse Oximetry 85 L 91 06/03/20 18:23 06/03/20 18:50 06/03/20 19:10 Temperature 37.9 C H Pulse Rate 124 H 121 H Respiratory Rate 44 H 40 H Blood Pressure Pulse Oximetry 06/03/20 19:17 06/03/20 20:00 06/03/20 21:40 Temperature Pulse Rate 121 H 121 H Respiratory Rate 24 H Blood Pressure 131/66 Pulse Oximetry 94 97 06/03/20 21:49 06/03/20 22:39 06/04/20 00:00 Temperature 36.6 C Pulse Rate 119 H 122 H 121 H Respiratory Rate 34 H Blood Pressure 128/75 Pulse Oximetry 100 98 06/04/20 01:55 06/04/20 02:04 06/04/20 04:00 Temperature Pulse Rate 124 H 124 H 126 H Respiratory Rate 36 H 34 H Blood Pressure Pulse Oximetry 06/04/20 06:36 06/04/20 08:00 06/04/20 09:04 Temperature 37.0 C Pulse Rate 123 H 111 H 111 H Respiratory Rate 38 H 25 H Blood Pressure 127/69 Pulse Oximetry 97 97 06/04/20 09:15 06/04/20 12:00 Temperature Pulse Rate 111 H 110 H Respiratory Rate 22 H Blood Pressure Pulse Oximetry Intake/Output Intake/Output: Intake & Output 06/01/20 06/02/20 06/03/20 06/04/20 23:59 23:59 23:59 23:59 Intake Total 940 1266 1128 550 Output Total 7368 569 0118 670 Balance -110 816 -197 -120 Meds/Results Medications: Active Medications Generic Name Dose Route Start Last Admin Trade Name Freq PRN Reason Stop Dose Admin Acetaminophen 650 mg 06/03/20 17:00 06/04/20 06:12 Acetaminophen Elixir 325 Mg/10.15 Ml Udc FEED TUBE 650 mg Q6H PRN Administration Mild Pain (1-3) or Fever Buspirone HCl 10 mg 05/28/20 09:00 06/04/20 13:18 Buspirone Hcl 10 Mg Tablet FEED TUBE 10 mg TID JERAMIE Administration Dextrose 12.5 gm 05/24/20 13:39 05/26/20 05:23 Dextrose 50% 25 Gm/50 Ml Syringe IV PUSH 12.5 gm PRN PRN Administration Hypoglycemia Protocol Diltiazem HCl 60 mg 05/28/20 07:33 06/04/20 13:18 Diltiazem Hcl 60 Mg Tablet FEED TUBE 60 mg Q6HR JERAMIE Administration Dornase Demetris 2.5 mg 05/27/20 08:00 06/04/20 09:07 Dornase Demetris Inh Soln 1 Mg/Ml 2.5 Ml Amp INHALATION 2.5 mg Q12HRT JERAMIE Administration Enoxaparin Sodium 40 mg 05/24/20 09:00 06/04/20 08:36 Enoxaparin 40 Mg/0.4 Ml Syringe SUB-Q 40 mg DAILY JERAMIE Administration Famotidine 20 mg 05/28/20 09:00 06/04/20 08:36 Famotidine 20 Mg Tablet FEED TUBE 20 mg BID JERAMIE Administration Folic Acid 1 mg 05/28/20 09:00 06/04/20 08:36 Folic Acid 1 Mg Tablet FEED
[2020-06-04 13:46] LABS: Glucose Point of Care 121 (65-105)
--- NOTE | 2020-06-04 14:22 | PM.IMPN ---
Progress Note: A&P Assessment and Plan (1) Acute respiratory failure with hypoxia and hypercarbia: Code(s): J96.01 - Acute respiratory failure with hypoxia; J96.02 - Acute respiratory failure with hypercapnia Status: Acute Assessment and Plan: . Acute respiratory failure is likely secondary to aspiration pneumonia. COVID negative on 05/24/20. Influenza negative. Initially ventilated mechanically and extubated 05/31. Finished IV abx. restarted 1/2 per ID after hypoxic episode PM 06/01 and stopped 06/04 J tube placement 05/29 to try to avoid aspiration. G tube now to drain will need intermittant suctioning at ME. if does well 1-2 days d/c (2) Septic shock: Code(s): A41.9 - Sepsis, unspecified organism; R65.21 - Severe sepsis with septic shock Status: Acute Assessment and Plan: Lactic acid 2.9. WBC 18K with bandemia. Patient arrived from the ER hypotensive w/ BP of 77/44 mm Hg. He was treated with another 500 cc IV fluid bolus in the ICU and central line placed. Levophed ordered for vasopressor support but not required. Source of sepsis appears to be pulmonary. Repeat Lactic normal. BCx NGTD. UCx mentioned below. Finished 7 Day course of antibiotics 05/31 for aspiration. WBC elevated again post hypoxic episode and trending down now. No change in cxr (3) Pneumonia: Qualifiers: Aspiration pneumonia type: unspecified Laterality: bilateral Lung location: unspecified part of lung Pneumonia type: aspiration pneumonia Qualified Code(s): J69.0 - Pneumonitis due to inhalation of food and vomit Code(s): J18.9 - Pneumonia, unspecified organism Status: Acute Assessment and Plan: CXR reviewed 06/03 showing improvement in the Rt lung airspace disease. Probably aspiration pneumonia. BCx and Sputum Cx negative. finished 7 Day antibiotic course 05/31 as per ID . Continue bronchodilators. Extubated 05/31 and now on RA. J-tube placed 05/29 by surgery repeat course of antibiotics started after hypoxic episode and stopped 06/04 and probable poor handling of his secretions . As per ID cxr no change (4) Abnormal urinalysis: Code(s): R82.90 - Unspecified abnormal findings in urine Status: Acute Assessment and Plan: UA noted. Urine culture growing VRE but 10-49K; consider contaminate or colonization. Blood cultures no growth to date and sputum negative. Linezolid stopped. Finished 7 D Unasyn for aspiration per ID (5) Leukocytosis: Qualifiers: Leukocytosis type: unspecified Qualified Code(s): D72.829 - Elevated white blood cell count, unspecified Code(s): D72.829 - Elevated white blood cell count, unspecified Status: Acute Assessment and Plan: Secondary to severe sepsis and pneumonia. White count normalize but back up 1/2. restarted cefipime and down to 18K today. (6) Dysphagia: Qualifiers: Dysphagia type: unspecified Qualified Code(s): R13.10 - Dysphagia, unspecified Code(s): R13.10 - Dysphagia, unspecified Status: Chronic Assessment and Plan: Chronic with GTube in place. NPO Tolerating tube feeds now per J tube. (7) Encephalopathy chronic: Code(s): G93.49 - Other encephalopathy Status: Chronic Assessment and Plan: Patient with acute on chronic encephalopathy. Acute process related to above. 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 More alert now. (8) Anemia: Code(s): D64.9 - Anemia, unspecified Status: Acute Assessment and Plan: Appears to be chronic. Was stable last admission in the 8 range. Hemoglobin 8.9 today 06/04. Follow. (9) DVT prophylaxis: Code(s): Z29.9 - Encounter for prophylactic measures, unspecified Status: Acute Assessment and Plan: Lovenox Subjective Date/time seen: 06/04/20 14:22 Interval history: Date of service 06/04/20
--- NOTE | 2020-06-04 17:00 | PC.NURSE ---
Attempted to facetime with patients family member between [id number]. No answer.
--- NOTE | 2020-06-04 17:49 | PC.NURSE ---
Spoke with patients family member. Family member stated that they were not near their phone and to call again. 2 more attempts were made to call. Family said we were trying on the right number when I called beforehand.
[2020-06-04 17:54] LABS: Glucose Point of Care 127 (65-105)
[2020-06-05] VITALS (27 sets, daily range): BP systolic 109–142; BP diastolic 58–79; PULSE 108–135; RESP 30–48; TEMP 36.9–38.7; O2SAT 97–100
[2020-06-05 00:25] LABS: Glucose Point of Care 125 (65-105)
--- NOTE | 2020-06-05 03:39 | ECG_ITS ---
Measurements Intervals [place] Rate: 131 P: 42 [place]: 140 QRS: -43 QRSD: 78 T: 49 QT: 277 QTc: 409 Interpretive Statements SINUS TACHYCARDIA LEFT AXIS DEVIATION CANNOT RULE OUT SEPTAL INFARCT, AGE INDETERMINATE ABNORMAL ECG Electronically Signed On 06-05-2020 6:49:54 COMMUNICATIONS TECHNICIAN by Leon Balderas D.O.
[2020-06-05] MEDS: SODIUM CHLORIDE 0.9% IV 250 ML 999 ML IV CONT (04:36)
[2020-06-05] MEDS: dilTIAZem HCL 60 MG TABLET FEED TUBE ×4 (05:42→23:19)
[2020-06-05] MEDS: METOCLOPRAMIDE HCL 10 MG TABLET FEED TUBE ×4 (05:42→23:19)
[2020-06-05 05:58] LABS: Basophils Absolute Auto 0.1 K/mm3 (0.0-0.1); Basophils Percent Auto 0.4 % (0.2-1.2); Eosinophils Absolute Auto 0.5 K/mm3 (0-0.3); Hematocrit 28.9 % (42.0-52.0); Hemoglobin 8.7 g/dL (14.0-18.0); Immature Granulocyte Absolute 0.06 K/mm3 (0.00-0.031); Immature Granulocyte Percent A 0.5 % (0-0.5); Lymphocytes Absolute Auto 1.48 K/mm3 (0.9-3.2); Lymphocytes Percent Auto 11.7 % (18.3-44.2); Mean Corpuscular HGB Conc 30.1 g/dl (32-36); Mean Corpuscular Hemoglobin 23.3 pg (26-34); Mean Corpuscular Volume 77.5 fl (80-100); Monocytes Absolute Auto 1.1 K/mm3 (0.1-0.6); Monocytes Percent Auto 8.8 % (2.6-8.5); Neutrophils Absolute Auto 9.5 K/mm3 (1.3-6.7); Neutrophils Percent Auto 74.6 % (45.5-73.1); Platelet Count Result 485 k/mm3 (150-375); Red Blood Count 3.73 M/mm3 (4.6-6.20); Red Cell Distribution Width 17.7 % (11.5-14.5); White Blood Count 12.7 K/mm3 (4.5-10.0)
[2020-06-05 06:17] LABS: Anion Gap 6 mmol/L (8-16); Blood Urea Nitrogen 24 mg/dL (9-20); Calcium 8.9 mg/dL (8.4-10.2); Carbon Dioxide 30 mmol/L (22-30); Chloride 108 mmol/L (98-107); Estimated CRCL calculation 80 ml/min; Estimated Glomerular Filt Rate > 60; Glucose 112 mg/dL (75-110); Potassium 4.6 mmol/L (3.4-5.0); Sodium 144 mmol/L (137-145)
[2020-06-05 06:35] LABS: Glucose Point of Care 107 (65-105)
[2020-06-05] MEDS: FOLIC ACID 1 MG TABLET FEED TUBE (08:09)
[2020-06-05] MEDS: busPIRone HCL 10 MG TABLET FEED TUBE ×3 (08:10→18:39)
[2020-06-05] MEDS: ENOXAPARIN 40 MG/0.4 ML SYRINGE SUB-Q (08:10)
[2020-06-05] MEDS: MORPHINE SULFATE (*CRX) 4 MG/ML INJ 1 MG IV PUSH (08:21)
[2020-06-05] MEDS: METOPROLOL TARTRATE INJ 5 MG/5 ML VIAL 2.5 MG IV PUSH (08:21)
[2020-06-05] MEDS: FAMOTIDINE 20 MG TABLET FEED TUBE ×2 (08:34→18:39)
[2020-06-05] MEDS: SODIUM CHLORIDE 0.9% IV 250 ML 100 ML IV CONT (08:45)
[2020-06-05] MEDS: DORNASE ALFA INH SOLN 1 MG/ML 2.5 ML AMP 2.5 MG INHALATION ×2 (08:59→19:34)
--- NOTE | 2020-06-05 11:25 | PCNFU ---
Nutrition Follow-Up Complete: Inadequate oral intake related to inability to feed orally as evidence by need for mechanical ventilation Goal: Total intake will meet estimated nutrition needs Patient has met goal. No new goal. Pt current nutrition is Jevity 1.2 at 65 ml/hr. Last recorded weight is 43.8 kg,down from 50.2 kg on admit. Weight have fluctuated. Bowel Motility:+BM noted 06/04. Labs Reviewed: BUN 24,Cr 0.5 Meds Noted:Reglan,Buspar,Pepcid,Folic Acid,Lovenox. Additional Notes: Spoke with nursing today, Patient is tolerating tube feedings well of Jevity 1.2 at 65 ml/hr. Tube feeding is providing patient with 1716 kcals and 79 gms protein. Tube feedings are appropriate. Monitoring: Nutrition plan, nutrition tolerance, weight, BMs, labs every Thursday/Thursday
[2020-06-05] MEDS: ACETAMINOPHEN ELIXIR 325 MG/10.15 ML UDC 650 MG FEED TUBE ×2 (12:04→18:55)
[2020-06-05 12:07] LABS: Glucose Point of Care 142 (65-105)
[2020-06-05] MEDS: ACETAMINOPHEN 650 MG SUPPOSITORY RECTAL (16:18)
--- NOTE | 2020-06-05 18:33 | PM.IMPN ---
Progress Note: A&P Assessment and Plan (1) Aspiration into airway: Code(s): T17.908A - Unspecified foreign body in respiratory tract, part unspecified causing other injury, initial encounter Status: Acute Assessment and Plan: S/p extubation S/p g-tube AND j-Tube placement. (2) Encephalopathy chronic: Code(s): G93.49 - Other encephalopathy Status: Chronic Assessment and Plan: Unchanged. (3) Septic shock: Code(s): A41.9 - Sepsis, unspecified organism; R65.21 - Severe sepsis with septic shock Status: Acute Assessment and Plan: Resolved Likely secondary to UTI. (4) Hypertension: Qualifiers: Hypertension type: unspecified Qualified Code(s): I10 - Essential (primary) hypertension Code(s): I10 - Essential (primary) hypertension Status: Chronic Assessment and Plan: Stable Continue to monitor. (5) Suspected 2019 novel coronavirus infection: Code(s): Z20.828 - Contact with and (suspected) exposure to other viral communicable diseases Status: Acute Assessment and Plan: Ruled out. (6) Acute respiratory failure with hypoxia and hypercarbia: Code(s): J96.01 - Acute respiratory failure with hypoxia; J96.02 - Acute respiratory failure with hypercapnia Status: Acute Assessment and Plan: Extubated On nc Maintaining sats Continue to monitor RT to suction (7) Acute respiratory failure with hypoxia: Code(s): J96.01 - Acute respiratory failure with hypoxia Status: Acute Assessment and Plan: On nc Continue to monitor (8) Dysphagia: Qualifiers: Dysphagia type: unspecified Qualified Code(s): R13.10 - Dysphagia, unspecified Code(s): R13.10 - Dysphagia, unspecified Status: Chronic Assessment and Plan: S/p G-tube and J-tube placement G-tube to low intermittent suction. (9) COPD (chronic obstructive pulmonary disease): Code(s): J44.9 - Chronic obstructive pulmonary disease, unspecified Status: Acute Assessment and Plan: Continue to monitor Not actively wheezing. Subjective Date/time seen: 06/05/20 18:33 Unable to obtain as patient is non verbal. Review of Systems Review of Systems: Narrative: Unable to obtain as patient is nonverbal. Exam Narrative: Exam Narrative: Chronically ill looking in bed labored breathing. Const: General: acute distress and ill appearing Nutritional Appearance: cachectic Orientation/consciousness: Other orientation findings (Encephallopatic.) HENMT: Head: normocephalic Face and sinus: normal facial exam Eyes: General: appearance normal, both eyes and all related structures Pupils: Equal, round and reactive pupils present EOM: EOMs intact bilaterally Neck: Neck: no lymphadenopathy, supple and no JVD Resp: Auscultation: clear to auscultation bilaterally Cardio: Rate: tachycardic (Sinus tachy.) and other GI: Inspection: other (G tube hooked to intermittent suction, J-tube in place.) GI Palp: Yes Soft to palpation and Yes No hepatosplenomegaly present Skin: Wounds: no wounds (G-tube, Jtube.) Neuro: Cranial nerves: Yes Equal, round and reactive pupils present Cognition (Neuro): abnormal cognition (Encephalopathy.) Extrem: General: other (Contracture spasticity of B/L UE and LE.) Objective Data Vital Signs Vital Signs: Vital Signs - 24 hr 06/04/20 19:32 06/04/20 19:57 06/04/20 20:00 Temperature 99.6 F Pulse Rate 113 H 112 H 118 H Respiratory Rate 34 H 34 H Blood Pressure 104/65 Pulse Oximetry 100 06/04/20 20:05 06/04/20 20:20 06/04/20 20:22 Temperature 99.6 F Pulse Rate 112 H Respiratory Rate 34 H Blood Pressure Pulse Oximetry 96 97 06/04/20 23:40 06/05/20 00:00 06/05/20 02:25 Temperature Pulse Rate 126 H 118 H Respiratory Rate 44 H Blood Pressure Pulse Oximetry 95 06/05/20 02:32 06/05/20 03:38 06/05/20 03:45 Temperature 99.3 F
[2020-06-05 18:47] LABS: Glucose Point of Care 125 (65-105)
[2020-06-05 19:42] LABS: SARS-CoV-2 RNA PCR Negative
[2020-06-05 23:12] LABS: Glucose Point of Care 131 (65-105)
[2020-06-06] VITALS (17 sets, daily range): BP systolic 110–168; BP diastolic 70–96; PULSE 91–111; RESP 20–24; TEMP 36.7–36.9; O2SAT 96–100
[2020-06-06 01:52] LABS: Add Urine Microscopic? YES; Appearance Urine Cloudy (Clear); Bacteria Urine Trace /hpf; Bilirubin Urine Negative (Negative); Blood Urine 3+ (Negative); Color Urine Yellow (Yellow); Glucose Urine UA Negative (Negative); Ketones Urine Trace mg/dL (Negative); Leukocyte Esterase Ur Trace LEU/UL (Negative); Mucus Urine Few /lpf; Nitrate Urine Negative (Negative); Protein Urine 2+ mg/dL (Negative); RBC Urine >75 /hpf (0-2); Squamous Epithelial Cell Urine Rare /hpf (Few); Urobilinogen Urine Negative mg/dL (<2.0); WBC Urine 16-20 /hpf
[2020-06-06 01:55] LABS: Specific Grav Ur 1.032 (1.001-1.035)
[2020-06-06 05:38] LABS: Glucose Point of Care 118 (65-105)
[2020-06-06] MEDS: dilTIAZem HCL 60 MG TABLET FEED TUBE ×4 (05:38→23:28)
[2020-06-06] MEDS: METOCLOPRAMIDE HCL 10 MG TABLET FEED TUBE ×4 (05:38→23:28)
[2020-06-06] MEDS: DORNASE ALFA INH SOLN 1 MG/ML 2.5 ML AMP 2.5 MG INHALATION ×2 (07:21→19:58)
[2020-06-06] MEDS: FAMOTIDINE 20 MG TABLET FEED TUBE ×2 (09:21→17:24)
[2020-06-06] MEDS: ENOXAPARIN 40 MG/0.4 ML SYRINGE SUB-Q (09:21)
[2020-06-06] MEDS: FOLIC ACID 1 MG TABLET FEED TUBE (09:21)
[2020-06-06] MEDS: busPIRone HCL 10 MG TABLET FEED TUBE ×3 (09:21→17:24)
[2020-06-06 12:41] LABS: Glucose Point of Care 104 (65-105)
--- NOTE | 2020-06-06 13:10 | WPDINFPN2 ---
Progress Note: A&P Assessment and Plan (1) Aspiration into airway: Code(s): T17.908A - Unspecified foreign body in respiratory tract, part unspecified causing other injury, initial encounter Status: Acute Assessment and Plan: 1. Fever due to #4 . 2. Chronic Murphy with bacteriuria, no urine infection present 3. Chronic encephalopathy, stable 4. Respiratory distress with leukocytosis, due to poor airway clearance of secretions, not truly aspiration pneumonia. WBC lower. REC Cefepime #5, stop after today. Aggressive pulmonary toilet is mandatory to prevent future episodes. Subjective Date/time seen: 06/06/20 13:11 Interval history: non verbal, looks comfortable Exam Narrative: Exam Narrative: t max 38.7 Const: Other: cachectic Eyes: General: appearance normal, both eyes and all related structures Resp: Effort & Inspection: normal respiratory effort Auscultation: clear to auscultation bilaterally and diminished lung sounds Cardio: Rate: regular rate Rhythm: regular rhythm Heart sounds: no murmurs GI: Inspection: non-distended GI Palp: Yes Firmness to palpation present (GI) and No Tenderness to palpation present (GI) Skin: General skin exam: normal color and no rashes or lesions noted Objective Data Vital Signs Vital Signs: Vital Signs - 24 hr 06/05/20 14:00 06/05/20 14:15 06/05/20 14:27 Temperature 36.9 C 37.9 C H Pulse Rate 120 H 119 H 121 H Respiratory Rate 35 H 36 H 32 H Blood Pressure 119/72 Pulse Oximetry 99 97 06/05/20 14:28 06/05/20 16:00 06/05/20 16:18 Temperature 37.9 C H Pulse Rate 121 H 116 H Respiratory Rate 36 H Blood Pressure Pulse Oximetry 06/05/20 17:18 06/05/20 18:55 06/05/20 19:34 Temperature 37.9 C H 37.9 C H Pulse Rate 108 H Respiratory Rate 36 H Blood Pressure Pulse Oximetry 97 06/05/20 19:54 06/05/20 19:55 06/05/20 20:00 Temperature 37.1 C Pulse Rate 110 H 110 H 109 H Respiratory Rate 40 H 30 H Blood Pressure 109/58 L Pulse Oximetry 100 06/05/20 20:16 06/06/20 00:00 06/06/20 01:48 Temperature Pulse Rate 100 103 H Respiratory Rate 24 H Blood Pressure Pulse Oximetry 99 96 06/06/20 04:00 06/06/20 06:12 06/06/20 08:00 Temperature 36.7 C Pulse Rate 106 H 100 102 H Respiratory Rate 24 H Blood Pressure 110/70 Pulse Oximetry 99 06/06/20 12:00 Temperature Pulse Rate 109 H Respiratory Rate Blood Pressure Pulse Oximetry Intake/Output Intake/Output: Intake & Output 06/03/20 06/04/20 06/05/20 06/06/20 23:59 23:59 23:59 23:59 Intake Total 1128 2398 400 1200 Output Total 1325 795 925 300 Balance -197 1603 -525 900 Meds/Results Medications: Active Medications Generic Name Dose Route Start Last Admin Trade Name Freq PRN Reason Stop Dose Admin Acetaminophen 650 mg 06/03/20 17:00 06/05/20 18:55 Acetaminophen Elixir 325 Mg/10.15 Ml Udc FEED TUBE 650 mg Q6H PRN Administration Mild Pain (1-3) or Fever Buspirone HCl 10 mg 05/28/20 09:00 06/06/20 12:24 Buspirone Hcl 10 Mg Tablet FEED TUBE 10 mg TID JERAMIE Administration Dextrose 12.5 gm 05/24/20 13:39 05/26/20 05:23 Dextrose 50% 25 Gm/50 Ml Syringe IV PUSH 12.5 gm PRN PRN Administration Hypoglycemia Protocol Diltiazem HCl 60 mg 05/28/20 07:33 06/06/20 12:25 Diltiazem Hcl 60 Mg Tablet FEED TUBE 60 mg Q6HR JERAMIE Administration Dornase Demetris 2.5 mg 05/27/20 08:00 06/06/20 07:21 Dornase Demetris Inh Soln 1 Mg/Ml 2.5 Ml Amp INHALATION 06/15/20 08:01 2.5 mg Q12HRT JERAMIE Administration Enoxaparin Sodium 40 mg 05/24/20 09:00 06/06/20 09:21 Enoxaparin 40 Mg/0.4 Ml Syringe SUB-Q 40 mg DAILY JERAMIE Administration Famotidine 20 mg 05/28/20 09:00 06/06/20 09:21 Famotidine 20 Mg Tablet FEED TUBE 20 mg BID JERAMIE Administration Folic Acid 1 mg 05/28/20 09:00 06/06/20 09:21 Folic Acid 1 Mg Tablet FEED TUBE 1 mg DAILY JERAMIE Administration Glucagon
--- NOTE | 2020-06-06 16:38 | PM.IMPN ---
Progress Note: A&P Assessment and Plan (1) Encephalopathy chronic: Code(s): G93.49 - Other encephalopathy Status: Chronic Assessment and Plan: Chronic patient seems to be more alert today. (2) Septic shock: Code(s): A41.9 - Sepsis, unspecified organism; R65.21 - Severe sepsis with septic shock Status: Acute Assessment and Plan: Resolved. (3) Hypertension: Qualifiers: Hypertension type: unspecified Qualified Code(s): I10 - Essential (primary) hypertension Code(s): I10 - Essential (primary) hypertension Status: Chronic Assessment and Plan: Continue to monitor Continue home meds (4) Suspected 2019 novel coronavirus infection: Code(s): Z20.828 - Contact with and (suspected) exposure to other viral communicable diseases Status: Acute Assessment and Plan: Ruled out (5) Acute respiratory failure with hypoxia and hypercarbia: Code(s): J96.01 - Acute respiratory failure with hypoxia; J96.02 - Acute respiratory failure with hypercapnia Status: Acute Assessment and Plan: On NC Holding up saturation in the 90's RT to suction Much better today. (6) Leukocytosis: Qualifiers: Leukocytosis type: unspecified Qualified Code(s): D72.829 - Elevated white blood cell count, unspecified Code(s): D72.829 - Elevated white blood cell count, unspecified Status: Acute Assessment and Plan: Will trend (7) Abnormal urinalysis: Code(s): R82.90 - Unspecified abnormal findings in urine Status: Acute Assessment and Plan: Appreciate ID note Currently on Cefepime (8) COPD (chronic obstructive pulmonary disease): Code(s): J44.9 - Chronic obstructive pulmonary disease, unspecified Status: Acute Assessment and Plan: Not actively wheezing Subjective Date/time seen: 06/06/20 16:38 Non verbal. Review of Systems Review of Systems: Narrative: Unable to obtain a thorough review as patient is non verbal. Exam Narrative: Exam Narrative: Chronically ill looking in bed. Const: General: comfortable, no acute distress and awake Nutritional Appearance: thin Orientation/consciousness: oriented to person Limitations: altered mental status Other: Non verbal. HENMT: Head: normocephalic and atraumatic Face and sinus: normal facial exam Eyes: General: appearance normal, both eyes and all related structures Pupils: Equal, round and reactive pupils present EOM: EOMs intact bilaterally Neck: Neck: no lymphadenopathy, supple and no JVD Lymphatic: no lymphadenopathy noted Resp: Auscultation: clear to auscultation bilaterally Cardio: Rate: tachycardic (Sinus tachy.) GI: Inspection: other (G-tube in place, J- tube in place.) GI Palp: Yes Soft to palpation and Yes No hepatosplenomegaly present Skin: Wounds: no wounds (G-tube and J-tube in place.) Neuro: General: oriented to person and other (Patient mumbles words.) Cognition (Neuro): abnormal cognition (Chronic encephalopathy.) Speech: dysarthria Motor exam (neuro): Other motor observations present (B/L contrcature spasticity.) Extrem: General: no pedal edema and other (B/L contracture spasticity.) Objective Data Vital Signs Vital Signs: Vital Signs - 24 hr 06/05/20 17:18 06/05/20 18:55 06/05/20 19:34 Temperature 100.2 F H 100.2 F H Pulse Rate 108 H Respiratory Rate 36 H Blood Pressure Pulse Oximetry 97 06/05/20 19:54 06/05/20 19:55 06/05/20 20:00 Temperature 98.8 F Pulse Rate 110 H 110 H 109 H Respiratory Rate 40 H 30 H Blood Pressure 109/58 L Pulse Oximetry 100 06/05/20 20:16 06/06/20 00:00 06/06/20 01:48 Temperature Pulse Rate 100 103 H Respiratory Rate 24 H Blood Pressure Pulse Oximetry 99 96 06/06/20 04:00 06/06/20 06:12 06/06/20 07:21 Temperature 98.1 F Pulse Rate 106 H 100 98 Respiratory Rate 24 H 21 H Blood Pressure 110/70 Pulse Oximetry 99 98
[2020-06-06 17:28] LABS: Glucose Point of Care 109 (65-105)
[2020-06-06 23:19] LABS: Glucose Point of Care 124 (65-105)
[2020-06-07] VITALS (13 sets, daily range): BP systolic 117–148; BP diastolic 68–75; PULSE 100–124; RESP 16–32; TEMP 36.3–37.1; O2SAT 97–100
[2020-06-07] MEDS: dilTIAZem HCL 60 MG TABLET FEED TUBE ×4 (05:12→23:52)
[2020-06-07] MEDS: METOCLOPRAMIDE HCL 10 MG TABLET FEED TUBE ×4 (05:12→23:52)
[2020-06-07 05:44] LABS: Glucose Point of Care 114 (65-105)
[2020-06-07] MEDS: DORNASE ALFA INH SOLN 1 MG/ML 2.5 ML AMP 2.5 MG INHALATION ×2 (07:28→19:57)
[2020-06-07] MEDS: ENOXAPARIN 40 MG/0.4 ML SYRINGE SUB-Q (09:43)
[2020-06-07] MEDS: FOLIC ACID 1 MG TABLET FEED TUBE (09:43)
[2020-06-07] MEDS: FAMOTIDINE 20 MG TABLET FEED TUBE ×2 (09:43→17:23)
[2020-06-07] MEDS: busPIRone HCL 10 MG TABLET FEED TUBE ×3 (09:43→17:23)
--- NOTE | 2020-06-07 12:39 | PM.DS ---
DS: Summary Time Spent with Patient Time attestation: Total time spent providing and/or coordinating discharge services: DS: Data Data Completed and Pending Labs on day of discharge: Labs from last 24 hours 06/07/20 06/06/20 06/06/20 05:41 23:05 17:26 POC Capillary Glucose 114 H 124 H 109 06/06/20 12:23 POC Capillary Glucose 104 Preliminary micro results at discharge 06/05/20 15:15 Blood Culture - Preliminary Blood 06/05/20 15:08 Blood Culture - Preliminary Blood Discharge Plan Discharge Attending physician on discharge: Anders Tillman V. Consulting providers: [facility] ; Kofi Bolaños ; Devonte Reaves ; Chanda Sellers Discharging Clinician: Anders Tillman V. Patient Disposition: SNF Activity: september shower Diet: NPO and tube feeding Stand Alone Forms: General Discharge Information Follow-up/Referrals: [facility] [Skilled Nursing] - Discharge Medications: New insulin aspart U-100 [Novolog U-100 Insulin aspart] 100 unit/mL Solution 3 - 6 units subcut Q6H 30 Days RF: 0 metoclopramide HCl [Reglan] 10 mg Tablet 10 mg feeding tube Q6HR 30 Days Qty: 120 RF: 0 levalbuterol HCl 1.25 mg/0.5 mL Solution For Nebulization 1.25 mg inhalation Q6HRT 30 Days Qty: 60 RF: 0 Pulmozyme 1 mg/mL Solution 2.5 mg inhalation Q12HRT 30 Days Qty: 150 RF: 0 buspirone 10 mg Tablet 10 mg feeding tube TID 30 Days Qty: 90 RF: 0 diltiazem HCl 60 mg Tablet 60 mg feeding tube Q6HR Qty: 30 RF: 0 famotidine 20 mg Tablet 20 mg feeding tube BID 30 Days Qty: 60 RF: 0 acetaminophen [Nortemp] 160 mg/5 mL Suspension 650 mg feeding tube Q6H PRN (Reason: Mild Pain (1-3) Or Fever) Qty: 30 RF: 0 Continued fluconazole [Diflucan] 200 mg Tablet 200 mg feeding tube DAILY RF: 0 acetaminophen 650 mg Tablet 650 mg PO Q6H PRN (Reason: Pain) RF: 0 ipratropium-albuterol 0.5 mg-3 mg(2.5 mg base)/3 mL Solution For Nebulization 3 ml INHALATION QID PRN (Reason: Shortness Of Breath) RF: 0 metoclopramide HCl 5 mg Tablet 5 mg feeding tube ACHS Qty: 120 RF: 0 buspirone 10 mg Tablet 10 mg feeding tube TID Qty: 90 RF: 0 folic acid 1 mg Tablet 1 mg feeding tube DAILY Qty: 30 RF: 0 diltiazem HCl 60 mg Tablet 60 mg feeding tube Q6HR Qty: 120 RF: 0 famotidine 20 mg Tablet 20 mg feeding tube BID Qty: 60 RF: 0 lorazepam [Ativan] 0.5 mg Tablet 0.25 mg feeding tube HS PRN (Reason: Anxiety) Qty: 20 RF: 0 Date of admission: 05/24/20 03:03 Primary Care Provider: UNKNOWN,DOCTOR Admitting Provider: Jayant Hanley Attending physician on admission: Clint Leigh Condition: Critical Quality VTE Prophylaxis VTE prophylaxis: pharmacologic ordered
--- NOTE | 2020-06-07 14:11 | WPDINFPN2 ---
Progress Note: A&P Assessment and Plan (1) Aspiration into airway: Code(s): T17.908A - Unspecified foreign body in respiratory tract, part unspecified causing other injury, initial encounter Status: Acute Assessment and Plan: 1. Fever due to #4, better for the moment. 2. Chronic Murphy with bacteriuria, no urine infection present 3. Chronic encephalopathy, stable 4. Respiratory distress with leukocytosis, due to poor airway clearance of secretions, not truly aspiration pneumonia. WBC not rechecked. REC Off Cefepime (5 days). Aggressive pulmonary toilet is mandatory to prevent future episodes. G and J tubes in place. Will sign off, thanks Subjective Date/time seen: 06/07/20 14:11 Interval history: non verbal appears comfortable though cachectic Exam Narrative: Exam Narrative: t max 37.9 Const: General: no acute distress Resp: Other: coarse breath sounds with some upper airway noise. Vesicular. Cardio: Rate: regular rate Rhythm: regular rhythm Heart sounds: no murmurs GI: GI Palp: Yes Firmness to palpation present (GI) and No Tenderness to palpation present (GI) Percussion: Yes normal to percussion Skin: General skin exam: normal color and no rashes or lesions noted Objective Data Vital Signs Vital Signs: Vital Signs - 24 hr 06/06/20 16:00 06/06/20 19:59 06/06/20 20:00 Temperature Pulse Rate 108 H 91 111 H Respiratory Rate 20 Blood Pressure Pulse Oximetry 06/06/20 20:03 06/06/20 20:15 06/06/20 22:00 Temperature 36.9 C Pulse Rate 95 110 H Respiratory Rate 22 H 20 Blood Pressure 168/96 H Pulse Oximetry 97 98 06/07/20 00:00 06/07/20 03:07 06/07/20 03:17 Temperature Pulse Rate 109 H 118 H 119 H Respiratory Rate 24 H 24 H Blood Pressure Pulse Oximetry 06/07/20 04:00 06/07/20 06:00 06/07/20 07:28 Temperature 37.1 C Pulse Rate 123 H 124 H 111 H Respiratory Rate 20 16 Blood Pressure 148/72 H Pulse Oximetry 98 97 06/07/20 08:00 06/07/20 13:42 Temperature Pulse Rate 113 H 104 H Respiratory Rate 18 Blood Pressure Pulse Oximetry Intake/Output Intake/Output: Intake & Output 06/04/20 06/05/20 06/06/20 06/07/20 23:59 23:59 23:59 23:59 Intake Total 2398 400 2053 Output Total 795 925 900 350 Balance 1603 525 1153 -350 Meds/Results Medications: Active Medications Generic Name Dose Route Start Last Admin Trade Name Freq PRN Reason Stop Dose Admin Acetaminophen 650 mg 06/03/20 17:00 06/05/20 18:55 Acetaminophen Elixir 325 Mg/10.15 Ml Udc FEED TUBE 650 mg Q6H PRN Administration Mild Pain (1-3) or Fever Buspirone HCl 10 mg 05/28/20 09:00 06/07/20 09:43 Buspirone Hcl 10 Mg Tablet FEED TUBE 10 mg TID JERAMIE Administration Dextrose 12.5 gm 05/24/20 13:39 05/26/20 05:23 Dextrose 50% 25 Gm/50 Ml Syringe IV PUSH 12.5 gm PRN PRN Administration Hypoglycemia Protocol Diltiazem HCl 60 mg 05/28/20 07:33 06/07/20 05:12 Diltiazem Hcl 60 Mg Tablet FEED TUBE 60 mg Q6HR JERAMIE Administration Dornase Demetris 2.5 mg 05/27/20 08:00 06/07/20 07:28 Dornase Demetris Inh Soln 1 Mg/Ml 2.5 Ml Amp INHALATION 06/15/20 08:01 2.5 mg Q12HRT JERAMIE Administration Enoxaparin Sodium 40 mg 05/24/20 09:00 06/07/20 09:43 Enoxaparin 40 Mg/0.4 Ml Syringe SUB-Q 40 mg DAILY JERAMIE Administration Famotidine 20 mg 05/28/20 09:00 06/07/20 09:43 Famotidine 20 Mg Tablet FEED TUBE 20 mg BID JERAMIE Administration Folic Acid 1 mg 05/28/20 09:00 06/07/20 09:43 Folic Acid 1 Mg Tablet FEED TUBE 1 mg DAILY JERAMIE Administration Glucagon 1 mg 05/24/20 13:39 Glucagon For Inj 1 Mg Vial IM PRN PRN Hypoglycemia Protocol Glucose 15 gm 05/24/20 13:39 Glucose Oral Gel 15 Gm Of Glucse In 37.5 Gm Tube PO PRN PRN Hypoglycemia Protocol Dextrose 1,000 mls @ 100 mls/hr 05/24/20 13:39 Dextrose 5% 1,000 Ml IVPB PRN PRN Hypoglycemia Hazel
[2020-06-07 14:55] LABS: Glucose Point of Care 101 (65-105)
--- NOTE | 2020-06-07 16:24 | PM.IMPN ---
Progress Note: A&P Assessment and Plan (1) Encephalopathy chronic: Code(s): G93.49 - Other encephalopathy Status: Chronic Assessment and Plan: Supportive care. (2) Septic shock: Code(s): A41.9 - Sepsis, unspecified organism; R65.21 - Severe sepsis with septic shock Status: Acute Assessment and Plan: Resolved. (3) Suspected 2019 novel coronavirus infection: Code(s): Z20.828 - Contact with and (suspected) exposure to other viral communicable diseases Status: Acute Assessment and Plan: Ruled out. (4) Acute respiratory failure with hypoxia and hypercarbia: Code(s): J96.01 - Acute respiratory failure with hypoxia; J96.02 - Acute respiratory failure with hypercapnia Status: Acute Assessment and Plan: Resolved. (5) Abnormal urinalysis: Code(s): R82.90 - Unspecified abnormal findings in urine Status: Acute Assessment and Plan: Chronic indwelling Murphy catheter. (6) Leukocytosis: Qualifiers: Leukocytosis type: unspecified Qualified Code(s): D72.829 - Elevated white blood cell count, unspecified Code(s): D72.829 - Elevated white blood cell count, unspecified Status: Acute Assessment and Plan: Will repeat However patient clinically much improved. Patient on Cefepime Appreciate ID note (7) Acute respiratory failure with hypoxia: Code(s): J96.01 - Acute respiratory failure with hypoxia Status: Acute Assessment and Plan: Continue nc (8) Gastrostomy tube dysfunction: Code(s): K94.23 - Gastrostomy malfunction Status: Acute Assessment and Plan: Increased output Connected to low intermittent suction. Continue to monitor. (9) Nutrition disorder: Code(s): E63.9 - Nutritional deficiency, unspecified Status: Acute Assessment and Plan: On tube feedings NPO Continue to monitor Subjective Date/time seen: 06/07/20 16:24 Non verbal. Review of Systems Review of Systems: Narrative: Unable to obtain as patient is non verbal. Exam Narrative: Exam Narrative: Chronically ill looking. Const: General: no acute distress, awake and other (Chronically ill looking.) Nutritional Appearance: thin Limitations: altered mental status and physical limitations Other: Contracture spasticity, non verbal. HENMT: Head: normal to inspection and normocephalic Eyes: Pupils: Equal, round and reactive pupils present EOM: EOMs intact bilaterally Neck: Neck: no lymphadenopathy, supple and no JVD Resp: Effort & Inspection: normal respiratory effort Auscultation: clear to auscultation bilaterally Cardio: Jugular venous distension: no JVD Rate: regular rate Rhythm: regular rhythm GI: Inspection: other (G-tube, J-tube.) Urinary Catheter: Urinary Catheter: other (nathanael color) Skin: General skin exam: pallor (Generalized pallor.) Wounds: no wounds (G-tube, J-tube.) Neuro: General: other (Non verbal.) Cranial nerves: Yes CN's II-XII intact bilaterally and Yes Equal, round and reactive pupils present Cognition (Neuro): normal cognition (Chronic encephalopathy.) Motor exam (neuro): Other motor observations present (B/L LE contracture spasticity.) Extrem: General: no pedal edema Objective Data Vital Signs Vital Signs: Vital Signs - 24 hr 06/06/20 19:59 06/06/20 20:00 06/06/20 20:03 Temperature Pulse Rate 91 111 H Respiratory Rate 20 Blood Pressure Pulse Oximetry 97 06/06/20 20:15 06/06/20 22:00 06/07/20 00:00 Temperature 98.4 F Pulse Rate 95 110 H 109 H Respiratory Rate 22 H 20 Blood Pressure 168/96 H Pulse Oximetry 98 06/07/20 03:07 06/07/20 03:17 06/07/20 04:00 Temperature Pulse Rate 118 H 119 H 123 H Respiratory Rate 24 H 24 H Blood Pressure Pulse Oximetry 06/07/20 06:00 06/07/20 07:28 06/07/20 08:00 Temperature 98.8 F Pulse Rate 124 H 111 H 113 H Respiratory Rate 20 16 Blood Pressure 1
[2020-06-07 18:05] LABS: Glucose Point of Care 108 (65-105)
[2020-06-07 23:46] LABS: Glucose Point of Care 113 (65-105)
[2020-06-08] VITALS (17 sets, daily range): BP systolic 116–139; BP diastolic 72–81; PULSE 100–120; RESP 18–28; TEMP 36.2–37; O2SAT 95–99
[2020-06-08] MEDS: METOCLOPRAMIDE HCL 10 MG TABLET FEED TUBE ×4 (05:21→23:15)
[2020-06-08] MEDS: dilTIAZem HCL 60 MG TABLET FEED TUBE ×4 (05:21→23:16)
[2020-06-08 05:31] LABS: Glucose Point of Care 136 (65-105)
[2020-06-08] MEDS: FAMOTIDINE 20 MG TABLET FEED TUBE ×2 (09:06→17:30)
[2020-06-08] MEDS: ENOXAPARIN 40 MG/0.4 ML SYRINGE SUB-Q (09:06)
[2020-06-08] MEDS: busPIRone HCL 10 MG TABLET FEED TUBE ×3 (09:06→17:30)
[2020-06-08] MEDS: FOLIC ACID 1 MG TABLET FEED TUBE (09:06)
[2020-06-08] MEDS: DORNASE ALFA INH SOLN 1 MG/ML 2.5 ML AMP 2.5 MG INHALATION ×2 (09:28→19:15)
--- NOTE | 2020-06-08 11:56 | PCNFU ---
Nutrition Follow-Up Complete: Inadequate oral intake related to inability to feed orally as evidence by need for mechanical ventilation Goal: Total intake will meet estimated nutrition needs Patient has met goal, no new goal. Pt current nutrition is Jevity 1.2 at 65 ml/hr. Nutrition recommendation:Agree Last recorded weight is 45.3 kg, down from 50.2 kg on admit. Bowel Motility:+BM noted 06/07 Labs Reviewed:BUN 24,Cr 0.5,Glu 112,Hct 28.9,Hgb 8.7 Meds Noted:Buspar,Pepcid,Folic Acid,Reglan Additional Notes: Nutrition follow up. Patient is tolerating J-tube feedings of Jevity 1.2 at 65 ml/hr which are providing 1716 kcals and 79 gms protein. Agree with diet orders. Monitoring: Nutrition plan, nutrition tolerance, weight, BMs, labs every Thursday/Thursday.
[2020-06-08 11:59] LABS: Glucose Point of Care 120 (65-105)
--- NOTE | 2020-06-08 15:46 | PC.NURSE ---
Per progressive care manager, Neda, Pt bed will not be ready today. Dr. Tillman called and informed and discharge can be cancelled at this time.
--- NOTE | 2020-06-08 17:06 | PM.IMPN ---
Progress Note: A&P Assessment and Plan (1) Nutrition disorder: Code(s): E63.9 - Nutritional deficiency, unspecified Status: Acute Assessment and Plan: S/p J-tube placement G-tube to low intermittent suction. (2) Gastrostomy tube dysfunction: Code(s): K94.23 - Gastrostomy malfunction Status: Acute Assessment and Plan: Increased output Hooked to low intermittent suction. (3) Aspiration into airway: Code(s): T17.908A - Unspecified foreign body in respiratory tract, part unspecified causing other injury, initial encounter Status: Acute Assessment and Plan: Resolved S/p J tube placement. (4) Encephalopathy chronic: Code(s): G93.49 - Other encephalopathy Status: Chronic Assessment and Plan: Supportive care Going to SNF Awaiting bed. (5) Septic shock: Code(s): A41.9 - Sepsis, unspecified organism; R65.21 - Severe sepsis with septic shock Status: Acute Assessment and Plan: Resolved. (6) Acute respiratory failure with hypoxia and hypercarbia: Code(s): J96.01 - Acute respiratory failure with hypoxia; J96.02 - Acute respiratory failure with hypercapnia Status: Acute Assessment and Plan: Continue suctioning around the clock. Subjective Date/time seen: 06/08/20 17:06 Patient is non verbal. Review of Systems Review of Systems: Narrative: Patient is non verbal. Exam Narrative: Exam Narrative: Lying in bed. Const: General: alert, awake and other (Chronically ill looking.) Nutritional Appearance: thin Orientation/consciousness: Other orientation findings (Encephalopatic.) HENMT: Head: normal to inspection and normocephalic Face and sinus: normal facial exam Eyes: Pupils: Equal, round and reactive pupils present EOM: EOMs intact bilaterally Neck: Neck: no lymphadenopathy, supple and no JVD Resp: Effort & Inspection: normal respiratory effort Auscultation: clear to auscultation bilaterally Cardio: Rate: regular rate Rhythm: regular rhythm GI: Inspection: other (G-tubein place/J-tube in place.) GI Palp: Yes Soft to palpation and Yes No hepatosplenomegaly present Skin: Wounds: no wounds (G-tube/J-tube in place.) Neuro: General: other (Vegetative stage.) Cranial nerves: Yes CN's II-XII intact bilaterally Cognition (Neuro): abnormal cognition Extrem: General: other (Contracture spasticity b/l.) Objective Data Vital Signs Vital Signs: Vital Signs - 24 hr 06/07/20 19:58 06/07/20 20:00 06/08/20 00:00 Temperature 98.5 F Pulse Rate 100 104 H 112 H Respiratory Rate 20 26 H Blood Pressure 117/68 Pulse Oximetry 100 06/08/20 02:20 06/08/20 04:00 06/08/20 05:33 Temperature 97.2 F L Pulse Rate 100 110 H 112 H Respiratory Rate 20 24 H Blood Pressure 139/81 Pulse Oximetry 99 06/08/20 08:00 06/08/20 09:29 06/08/20 09:42 Temperature Pulse Rate 117 H 117 H 115 H Respiratory Rate 24 H 24 H Blood Pressure Pulse Oximetry 06/08/20 12:00 06/08/20 14:00 06/08/20 16:00 Temperature 98.6 F Pulse Rate 120 H 118 H 118 H Respiratory Rate 22 H Blood Pressure 116/72 Pulse Oximetry 99 06/08/20 16:47 06/08/20 16:55 Temperature Pulse Rate 117 H 116 H Respiratory Rate 20 20 Blood Pressure Pulse Oximetry Intake/Output Intake/Output: Intake & Output 06/05/20 06/06/20 06/07/20 06/08/20 23:59 23:59 23:59 23:59 Intake Total 400 2053 120 Output Total 925 900 700 350 Balance -525 1153 -700 -230 Meds/Results Medications: Active Medications Generic Name Dose Route Start Last Admin Trade Name Freq PRN Reason Stop Dose Admin Acetaminophen 650 mg 06/03/20 17:00 06/05/20 18:55 Acetaminophen Elixir 325 Mg/10.15 Ml Udc FEED TUBE 650 mg Q6H PRN Administration Mild Pain (1-3) or Fever Buspirone HCl 10 mg 05/28/20 09:00 06/08/20 12:53 Buspirone Hcl 10 Mg Tablet FEED TUBE 10 mg TID JERAMIE Administration Dextrose 12.5 gm
[2020-06-08 17:46] LABS: Glucose Point of Care 137 (65-105)
[2020-06-09] VITALS (17 sets, daily range): BP systolic 109–116; BP diastolic 61–70; PULSE 102–123; RESP 20–26; TEMP 36.3–37.1; O2SAT 96–99
[2020-06-09 00:26] LABS: Glucose Point of Care 107 (65-105)
[2020-06-09] MEDS: METOCLOPRAMIDE HCL 10 MG TABLET FEED TUBE ×4 (05:43→23:33)
[2020-06-09] MEDS: dilTIAZem HCL 60 MG TABLET FEED TUBE ×4 (05:43→23:33)
[2020-06-09 05:54] LABS: Glucose Point of Care 121 (65-105)
[2020-06-09] MEDS: busPIRone HCL 10 MG TABLET FEED TUBE ×3 (08:35→17:28)
[2020-06-09] MEDS: FOLIC ACID 1 MG TABLET FEED TUBE (08:35)
[2020-06-09] MEDS: ENOXAPARIN 40 MG/0.4 ML SYRINGE SUB-Q (08:35)
[2020-06-09] MEDS: FAMOTIDINE 20 MG TABLET FEED TUBE ×2 (08:35→17:28)
[2020-06-09 11:54] LABS: Glucose Point of Care 127 (65-105)
--- NOTE | 2020-06-09 13:48 | PCRCNOTE ---
AT 730 PULMOZYME MEDS N/A. PHARMACY CALLED FOR REFILL
--- NOTE | 2020-06-09 15:30 | PM.IMPN ---
Progress Note: A&P Assessment and Plan (1) Gastrostomy tube dysfunction: Code(s): K94.23 - Gastrostomy malfunction Status: Acute Assessment and Plan: S/p J-tube placement Increased output from old G-tube on low intermittent suction. (2) Aspiration into airway: Code(s): T17.908A - Unspecified foreign body in respiratory tract, part unspecified causing other injury, initial encounter Status: Acute Assessment and Plan: NPO J-tube for feedings Tolerating formula (3) Encephalopathy chronic: Code(s): G93.49 - Other encephalopathy Status: Chronic Assessment and Plan: Supportive care Unchanged (4) Acute respiratory failure with hypoxia and hypercarbia: Code(s): J96.01 - Acute respiratory failure with hypoxia; J96.02 - Acute respiratory failure with hypercapnia Status: Acute Assessment and Plan: Continue supplemental O2 Suction around the clock (5) COPD (chronic obstructive pulmonary disease): Code(s): J44.9 - Chronic obstructive pulmonary disease, unspecified Status: Acute Assessment and Plan: Does not appear to be exacerbated. Breathing treatments. Subjective Date/time seen: 06/09/20 15:30 Lying in bed. No issues overnight issues. Review of Systems Review of Systems: Narrative: Patient with chronic encephalopathy/vegetative stage/non verbal. Exam Narrative: Exam Narrative: Sitting in bed, NAD. Const: General: comfortable, no acute distress, awake and other (Chronically ill looking.) Nutritional Appearance: thin Limitations: altered mental status Other: Chronic encephalopathy. HENMT: Head: normal to inspection and normocephalic Face and sinus: normal facial exam Eyes: General: appearance normal, both eyes and all related structures Pupils: Equal, round and reactive pupils present Neck: Neck: no lymphadenopathy, supple and no JVD Resp: Effort & Inspection: normal respiratory effort Auscultation: clear to auscultation bilaterally Cardio: Jugular venous distension: no JVD Rate: regular rate Rhythm: regular rhythm GI: Inspection: normal to inspection GI Palp: Yes Soft to palpation and Yes No hepatosplenomegaly present Skin: Wounds: no wounds (J-tube/G-tube in place.) Neuro: General: other (Vegetative stage) Motor exam (neuro): Other motor observations present (B/L LE contracture spasticity.) Extrem: General: no pedal edema Objective Data Vital Signs Vital Signs: Vital Signs - 24 hr 06/08/20 16:00 06/08/20 16:47 06/08/20 16:55 Temperature Pulse Rate 118 H 117 H 116 H Respiratory Rate 20 20 Blood Pressure Pulse Oximetry 06/08/20 19:17 06/08/20 19:18 06/08/20 19:24 Temperature Pulse Rate 113 H 113 H 100 Respiratory Rate 26 H 26 H 28 H Blood Pressure Pulse Oximetry 95 06/08/20 20:00 06/08/20 22:00 06/09/20 00:00 Temperature 97.7 F Pulse Rate 116 H 116 H 115 H Respiratory Rate 18 Blood Pressure 128/81 Pulse Oximetry 96 06/09/20 01:33 06/09/20 01:37 06/09/20 04:00 Temperature Pulse Rate 117 H 114 H 118 H Respiratory Rate 26 H 26 H Blood Pressure Pulse Oximetry 06/09/20 06:00 06/09/20 07:38 06/09/20 07:50 Temperature 98.7 F Pulse Rate 123 H 113 H 110 H Respiratory Rate 20 24 H 24 H Blood Pressure 113/63 Pulse Oximetry 98 99 06/09/20 08:00 06/09/20 11:40 06/09/20 12:00 Temperature Pulse Rate 114 H 116 H 110 H Respiratory Rate 24 H Blood Pressure 115/70 Pulse Oximetry 99 06/09/20 14:09 06/09/20 14:21 06/09/20 14:28 Temperature 97.3 F L Pulse Rate 102 H 110 H 106 H Respiratory Rate 24 H 24 H 22 H Blood Pressure 109/70 Pulse Oximetry 99 Intake/Output Intake/Output: Intake & Output 06/06/20 06/07/20 06/08/20 06/09/20 23:59 23:59 23:59 23:59 Intake Total 9966 864 775 Output Total 280 359 5896 100 Balance 5754 -114 -056 473 Meds/Results Medications: Active Medications Generic Name Dose Rou
[2020-06-09 17:58] LABS: Glucose Point of Care 118 (65-105)
[2020-06-09] MEDS: DORNASE ALFA INH SOLN 1 MG/ML 2.5 ML AMP 2.5 MG INHALATION (20:01)
[2020-06-09 23:46] LABS: Glucose Point of Care 125 (65-105)
[2020-06-10] VITALS (18 sets, daily range): BP systolic 105–117; BP diastolic 67–77; PULSE 53–120; RESP 16–24; TEMP 36.2–36.6; O2SAT 98–100
[2020-06-10] MEDS: METOCLOPRAMIDE HCL 10 MG TABLET FEED TUBE ×4 (05:17→23:27)
[2020-06-10] MEDS: dilTIAZem HCL 60 MG TABLET FEED TUBE ×4 (05:17→23:27)
[2020-06-10 05:44] LABS: Glucose Point of Care 124 (65-105)
[2020-06-10] MEDS: DORNASE ALFA INH SOLN 1 MG/ML 2.5 ML AMP 2.5 MG INHALATION ×2 (09:52→19:15)
[2020-06-10] MEDS: ENOXAPARIN 40 MG/0.4 ML SYRINGE SUB-Q (09:53)
[2020-06-10] MEDS: FOLIC ACID 1 MG TABLET FEED TUBE (09:54)
[2020-06-10] MEDS: FAMOTIDINE 20 MG TABLET FEED TUBE ×2 (09:54→16:17)
[2020-06-10] MEDS: busPIRone HCL 10 MG TABLET FEED TUBE ×3 (09:54→16:17)
[2020-06-10 11:59] LABS: Glucose Point of Care 116 (65-105)
--- NOTE | 2020-06-10 15:14 | PM.IMPN ---
Progress Note: A&P Assessment and Plan (1) Nutrition disorder: Code(s): E63.9 - Nutritional deficiency, unspecified Status: Acute Assessment and Plan: S/p G-tube S/p J -tube (2) Gastrostomy tube dysfunction: Code(s): K94.23 - Gastrostomy malfunction Status: Acute Assessment and Plan: Increased G-tube output Low intermittent suction Improved Awaiting bed. (3) Encephalopathy chronic: Code(s): G93.49 - Other encephalopathy Status: Chronic Assessment and Plan: Supportive care Unchanged (4) Acute respiratory failure with hypoxia and hypercarbia: Code(s): J96.01 - Acute respiratory failure with hypoxia; J96.02 - Acute respiratory failure with hypercapnia Status: Acute Assessment and Plan: Resolved Suction around the clock (5) Acute respiratory failure with hypoxia: Code(s): J96.01 - Acute respiratory failure with hypoxia Status: Acute Assessment and Plan: Stable On NC (6) COPD (chronic obstructive pulmonary disease): Code(s): J44.9 - Chronic obstructive pulmonary disease, unspecified Status: Acute Assessment and Plan: Stable No whezzing. Subjective Date/time seen: 06/10/20 15:14 Non verbal. Review of Systems Review of Systems: Narrative: Non verbal Exam Narrative: Exam Narrative: Lying in bed. Const: General: comfortable and awake Orientation/consciousness: Other orientation findings (Vegetative stage.) Limitations: altered mental status HENMT: Head: normocephalic Ears: hearing grossly normal bilaterally General nose exam: Normal external nose present Face and sinus: normal facial exam Neck: Neck: no lymphadenopathy, supple and no JVD Resp: Auscultation: clear to auscultation bilaterally Cardio: Jugular venous distension: no JVD Rate: regular rate Rhythm: regular rhythm Skin: General skin exam: pallor Wounds: no wounds (J-tube, G-tube in place.) Neuro: General: other (Persistent vegetative stage.) Extrem: General: no pedal edema Objective Data Vital Signs Vital Signs: Vital Signs - 24 hr 06/09/20 16:00 06/09/20 20:00 06/09/20 20:03 Temperature Pulse Rate 114 H 107 H 105 H Respiratory Rate 20 Blood Pressure Pulse Oximetry 96 06/09/20 21:32 06/10/20 00:00 06/10/20 02:24 Temperature 98.0 F Pulse Rate 108 H 113 H 102 H Respiratory Rate 22 H 20 Blood Pressure 116/61 Pulse Oximetry 98 06/10/20 04:15 06/10/20 06:15 06/10/20 08:00 Temperature 97.9 F Pulse Rate 106 H 110 H 117 H Respiratory Rate 16 24 H Blood Pressure 105/73 Pulse Oximetry 99 99 06/10/20 09:55 06/10/20 10:08 06/10/20 11:59 Temperature Pulse Rate 96 117 H 115 H Respiratory Rate 20 24 H Blood Pressure 106/67 Pulse Oximetry 06/10/20 15:00 06/10/20 15:08 Temperature Pulse Rate 109 H 91 Respiratory Rate 24 H 20 Blood Pressure Pulse Oximetry Intake/Output Intake/Output: Intake & Output 06/07/20 06/08/20 06/09/20 06/10/20 23:59 23:59 23:59 23:59 Intake Total 867 1903 959 Output Total 700 1350 450 450 Balance -700 -483 1453 509 Meds/Results Medications: Active Medications Generic Name Dose Route Start Last Admin Trade Name Freq PRN Reason Stop Dose Admin Acetaminophen 650 mg 06/03/20 17:00 06/05/20 18:55 Acetaminophen Elixir 325 Mg/10.15 Ml Udc FEED TUBE 650 mg Q6H PRN Administration Mild Pain (1-3) or Fever Buspirone HCl 10 mg 05/28/20 09:00 06/10/20 12:04 Buspirone Hcl 10 Mg Tablet FEED TUBE 10 mg TID JERAMIE Administration Dextrose 12.5 gm 05/24/20 13:39 05/26/20 05:23 Dextrose 50% 25 Gm/50 Ml Syringe IV PUSH 12.5 gm PRN PRN Administration Hypoglycemia Protocol Diltiazem HCl 60 mg 05/28/20 07:33 06/10/20 12:03 Diltiazem Hcl 60 Mg Tablet FEED TUBE 60 mg Q6HR JERAMIE Administration Dornase Demetris 2.5 mg 05/27/20 08:00 06/10/20 09:52 Dornase Demetris Inh Soln 1 Mg/Ml 2.5 M
[2020-06-10 16:33] LABS: Glucose Point of Care 122 (65-105)
[2020-06-10 23:40] LABS: Glucose Point of Care 124 (65-105)
[2020-06-11] VITALS (12 sets, daily range): BP systolic 111–117; BP diastolic 61–69; PULSE 97–127; RESP 18–28; TEMP 36.4–36.5; O2SAT 95–100
[2020-06-11] MEDS: METOCLOPRAMIDE HCL 10 MG TABLET FEED TUBE ×4 (05:25→23:05)
[2020-06-11] MEDS: dilTIAZem HCL 60 MG TABLET FEED TUBE ×4 (05:25→23:05)
[2020-06-11 05:52] LABS: Glucose Point of Care 121 (65-105)
[2020-06-11] MEDS: DORNASE ALFA INH SOLN 1 MG/ML 2.5 ML AMP 2.5 MG INHALATION ×2 (08:34→20:09)
[2020-06-11] MEDS: FOLIC ACID 1 MG TABLET FEED TUBE (08:41)
[2020-06-11] MEDS: busPIRone HCL 10 MG TABLET FEED TUBE ×3 (08:41→17:22)
[2020-06-11] MEDS: ENOXAPARIN 40 MG/0.4 ML SYRINGE SUB-Q (08:41)
[2020-06-11] MEDS: FAMOTIDINE 20 MG TABLET FEED TUBE ×2 (08:41→17:22)
--- NOTE | 2020-06-11 13:33 | PM.PNGS ---
Progress Note: A&P Assessment and Plan (1) Jejunostomy tube fell out: Code(s): T85.528A - Displacement of other gastrointestinal prosthetic devices, implants and grafts, initial encounter Status: Acute Assessment and Plan: J-tube was accidentally pulled out. I placed a amador catheter in open wound where Jtube was previously and will get a contrast study with imaging to confirm placement. Further plan forthcoming depending on results of imaging. (2) Aspiration into airway: Code(s): T17.908A - Unspecified foreign body in respiratory tract, part unspecified causing other injury, initial encounter Status: Acute Additional Plan Discussed with Dr. Sellers that Jtube was removed and will discuss with him again after seeing imaging results. Subjective Subjective Date/Time Seen: 06/11/20 13:33 Interval history: Called to the bedside by the nurse after patient pulled his J-tube out. She states she was in the room about 30 minutes prior and the Jtube was in place. Then, when she went back to check on the patient now, the Jtube was lying on the floor with the patient alone in the room. Review of Systems Review of Systems: ROS unobtainable: Yes unobtainable due to mental status Exam GI: Other: Opening of LLQ where J tube was previously. I placed a 16 fr. amador catheter in the opening and it gently slid into the hole without any resistance, inflated the Amador balloon and taped down the catheter to his abdomen. Objective Data Vital Signs Vital Signs: Vital Signs - 24 hr 06/10/20 15:00 06/10/20 15:08 06/10/20 15:36 Temperature 97.4 F L Pulse Rate 109 H 91 113 H Respiratory Rate 24 H 20 16 Blood Pressure 108/71 Pulse Oximetry 100 06/10/20 16:00 06/10/20 19:15 06/10/20 19:25 Temperature Pulse Rate 111 H 103 H 99 Respiratory Rate 16 16 Blood Pressure Pulse Oximetry 98 06/10/20 20:00 06/10/20 22:29 06/10/20 23:27 Temperature 97.1 F L Pulse Rate 108 H 53 L 110 H Respiratory Rate 18 Blood Pressure 117/77 Pulse Oximetry 98 06/11/20 00:00 06/11/20 01:33 06/11/20 04:00 Temperature Pulse Rate 111 H 101 H 110 H Respiratory Rate 18 Blood Pressure Pulse Oximetry 06/11/20 08:00 06/11/20 08:34 06/11/20 08:36 Temperature Pulse Rate 113 H 100 100 Respiratory Rate 18 18 Blood Pressure Pulse Oximetry 95 06/11/20 12:00 Temperature Pulse Rate 127 H Respiratory Rate Blood Pressure Pulse Oximetry Intake/Output Intake/Output: Intake & Output 06/08/20 06/09/20 06/10/20 06/11/20 23:59 23:59 23:59 23:59 Intake Total 867 1903 1961 1622 Output Total 1350 450 703 500 Balance -483 1453 1258 1122 Meds/Results Medications: Active Medications Generic Name Dose Route Start Last Admin Trade Name Freq PRN Reason Stop Dose Admin Acetaminophen 650 mg 06/03/20 17:00 06/05/20 18:55 Acetaminophen Elixir 325 Mg/10.15 Ml Udc FEED TUBE 650 mg Q6H PRN Administration Mild Pain (1-3) or Fever Buspirone HCl 10 mg 05/28/20 09:00 06/11/20 08:41 Buspirone Hcl 10 Mg Tablet FEED TUBE 10 mg TID JERAMIE Administration Dextrose 12.5 gm 05/24/20 13:39 05/26/20 05:23 Dextrose 50% 25 Gm/50 Ml Syringe IV PUSH 12.5 gm PRN PRN Administration Hypoglycemia Protocol Diltiazem HCl 60 mg 05/28/20 07:33 06/11/20 05:25 Diltiazem Hcl 60 Mg Tablet FEED TUBE 60 mg Q6HR JERAMIE Administration Dornase Demetris 2.5 mg 05/27/20 08:00 06/11/20 08:34 Dornase Demetris Inh Soln 1 Mg/Ml 2.5 Ml Amp INHALATION 06/15/20 08:01 2.5 mg Q12HRT JERAMIE Administration Enoxaparin Sodium 40 mg 05/24/20 09:00 06/11/20 08:41 Enoxaparin 40 Mg/0.4 Ml Syringe SUB-Q 40 mg DAILY JERAMIE Administration Famotidine 20 mg 05/28/20 09:00 06/11/20 08:41 Famotidine 20 Mg Tablet FEED TUBE 20 mg BID JERAMIE Administration Folic Acid 1 mg 05/28/20 09:00 06/11/20 08:41 Folic Acid 1 Mg Tablet FEED TUBE 1 mg DAILY JERAMIE Administrati
--- NOTE | 2020-06-11 14:40 | PC.NURSE ---
Pt pulled out g tube. Surgeon, hospitalist, and charge nurse aware. Instructions to place a amador as a place cl[place] until MD can arrive.
[2020-06-11 14:54] LABS: Glucose Point of Care 106 (65-105)
--- NOTE | 2020-06-11 15:15 | PC.NURSE ---
Per MD instruction. Murphy placed in g tube hole. set up for low intermittent suction, until MD sees in the am.
--- NOTE | 2020-06-11 16:13 | PM.IMPN ---
Progress Note: A&P Assessment and Plan (1) Jejunostomy tube fell out: Code(s): T85.528A - Displacement of other gastrointestinal prosthetic devices, implants and grafts, initial encounter Status: Acute Assessment and Plan: S/p Murphy insertion. Appreciate surgery note. (2) Nutrition disorder: Code(s): E63.9 - Nutritional deficiency, unspecified Status: Acute Assessment and Plan: Tolerating tube feedings. (3) Gastrostomy tube dysfunction: Code(s): K94.23 - Gastrostomy malfunction Status: Acute Assessment and Plan: To low intermitent suction as needed (4) Aspiration into airway: Code(s): T17.908A - Unspecified foreign body in respiratory tract, part unspecified causing other injury, initial encounter Status: Acute Assessment and Plan: Resolved NPO Enteral feeding. (5) Encephalopathy chronic: Code(s): G93.49 - Other encephalopathy Status: Chronic Assessment and Plan: Supportive care Awaiting bed at [facility] (6) Acute respiratory failure with hypoxia: Code(s): J96.01 - Acute respiratory failure with hypoxia Status: Acute Assessment and Plan: Resolved. Subjective Date/time seen: 06/11/20 16:13 Patient is non verbal. Review of Systems Review of Systems: Narrative: Unable to obtain as patient is non verbal. Exam Narrative: Exam Narrative: Lying in bed. Const: General: comfortable, no acute distress and awake Nutritional Appearance: thin Orientation/consciousness: Other orientation findings (Persistent vegetative stage.) HENMT: Head: normocephalic Face and sinus: normal facial exam Eyes: General: appearance normal, both eyes and all related structures Pupils: Equal, round and reactive pupils present EOM: EOMs intact bilaterally Neck: Neck: no lymphadenopathy, supple and no JVD Resp: Auscultation: clear to auscultation bilaterally Cardio: Jugular venous distension: no JVD Rate: regular rate GI: GI Palp: Yes Soft to palpation and Yes No hepatosplenomegaly present Skin: Wounds: no wounds (J-tube in place, G-tube in place.) Neuro: Cranial nerves: Yes CN's II-XII intact bilaterally and Yes Equal, round and reactive pupils present Cognition (Neuro): abnormal cognition (Persistent vegetative stage.) Extrem: General: other (B/L contracture spasticity of B/L LE.) Objective Data Vital Signs Vital Signs: Vital Signs - 24 hr 06/10/20 19:15 06/10/20 19:25 06/10/20 20:00 Temperature Pulse Rate 103 H 99 108 H Respiratory Rate 16 16 Blood Pressure Pulse Oximetry 98 06/10/20 22:29 06/10/20 23:27 06/11/20 00:00 Temperature 97.1 F L Pulse Rate 53 L 110 H 111 H Respiratory Rate 18 Blood Pressure 117/77 Pulse Oximetry 98 06/11/20 01:33 06/11/20 04:00 06/11/20 08:00 Temperature Pulse Rate 101 H 110 H 113 H Respiratory Rate 18 Blood Pressure Pulse Oximetry 06/11/20 08:34 06/11/20 08:36 06/11/20 12:00 Temperature Pulse Rate 100 100 127 H Respiratory Rate 18 18 Blood Pressure Pulse Oximetry 95 06/11/20 14:54 Temperature Pulse Rate 100 Respiratory Rate 18 Blood Pressure Pulse Oximetry Intake/Output Intake/Output: Intake & Output 06/08/20 06/09/20 06/10/20 06/11/20 23:59 23:59 23:59 23:59 Intake Total 867 1903 1961 1622 Output Total 1350 450 703 500 Balance -483 1453 1258 1122 Meds/Results Medications: Active Medications Generic Name Dose Route Start Last Admin Trade Name Freq PRN Reason Stop Dose Admin Acetaminophen 650 mg 06/03/20 17:00 06/05/20 18:55 Acetaminophen Elixir 325 Mg/10.15 Ml Udc FEED TUBE 650 mg Q6H PRN Administration Mild Pain (1-3) or Fever Buspirone HCl 10 mg 05/28/20 09:00 06/11/20 14:36 Buspirone Hcl 10 Mg Tablet FEED TUBE 10 mg TID JERAMIE Administration Dextrose 12.5 gm 05/24/20 13:39 05/26/20 05:23 Dextrose 50% 25 Gm/50 Ml Syringe IV PUSH 12.5 gm PRN NH
[2020-06-11 17:31] LABS: Glucose Point of Care 120 (65-105)
[2020-06-12] VITALS (10 sets, daily range): BP systolic 107–118; BP diastolic 57–79; PULSE 73–119; RESP 20–28; TEMP 36.4–36.8; O2SAT 95–99
[2020-06-12 01:37] LABS: Glucose Point of Care 117 (65-105)
[2020-06-12] MEDS: ACETAMINOPHEN ELIXIR 325 MG/10.15 ML UDC 650 MG FEED TUBE ×2 (05:12→23:21)
[2020-06-12] MEDS: dilTIAZem HCL 60 MG TABLET FEED TUBE ×4 (05:13→23:21)
[2020-06-12] MEDS: METOCLOPRAMIDE HCL 10 MG TABLET FEED TUBE ×4 (05:13→23:21)
[2020-06-12 05:23] LABS: Glucose Point of Care 114 (65-105)
[2020-06-12] MEDS: DORNASE ALFA INH SOLN 1 MG/ML 2.5 ML AMP 2.5 MG INHALATION ×2 (08:13→22:37)
[2020-06-12] MEDS: FAMOTIDINE 20 MG TABLET FEED TUBE ×2 (09:18→17:04)
[2020-06-12] MEDS: FOLIC ACID 1 MG TABLET FEED TUBE (09:18)
[2020-06-12] MEDS: ENOXAPARIN 40 MG/0.4 ML SYRINGE SUB-Q (09:19)
[2020-06-12] MEDS: busPIRone HCL 10 MG TABLET FEED TUBE ×3 (09:19→17:04)
[2020-06-12 12:20] LABS: Glucose Point of Care 115 (65-105)
--- NOTE | 2020-06-12 12:30 | PCNFU ---
Nutrition Follow-Up Complete: Inadequate oral intake related to inability to feed orally as evidence by need for mechanical ventilation Goal: Total intake will meet estimated nutrition needs Patient has met goal. No new goal. Pt current nutrition is Jevity 1.2 at 65 ml/hr. Last recorded weight is 44.5 kg stable. Bowel Motility:+BM reported 06/12 Labs Reviewed:No new labs to report. Meds Noted:Reglan,Folic Acid,Pepcid. Additional Notes: Nutrition Follow up. Patient is tolerating current tube feedings of Jevity 1.2 at 65 ml/hr which is providing patient with 1716 kcals and 79 gms protein. Meeting 100% of patient caloric needs. Monitoring: Nutrition plan, nutrition tolerance, weight, BMs, labs every Thursday/Thursday
--- NOTE | 2020-06-12 17:13 | PM.IMPN ---
Progress Note: A&P Assessment and Plan (1) Acute respiratory failure with hypoxia and hypercarbia: Code(s): J96.01 - Acute respiratory failure with hypoxia; J96.02 - Acute respiratory failure with hypercapnia Status: Acute Assessment and Plan: . Acute respiratory failure is likely secondary pneumonia. COVID negative on 05/24/20. Influenza negative. Initially ventilated mechanically and extubated 05/31. Finished IV abx. restarted 1/2 per ID after hypoxic episode PM 06/01 and stopped 06/04 J tube placement 05/29 to try to avoid aspiration. G tube now out with amador in place will need intermittant suctioning at [place]. waiting on placement Patient has had a long hospital course due to recurrent aspirations and respiratory failure and difficulty handling his own secretions. Trying to arrange for facility that can handle the different suctioning Hopefully will be able to discharge in 1-2 days (2) Septic shock: Code(s): A41.9 - Sepsis, unspecified organism; R65.21 - Severe sepsis with septic shock Status: Acute Assessment and Plan: Lactic acid 2.9. WBC 18K with bandemia. Patient arrived from the ER hypotensive w/ BP of 77/44 mm Hg. He was treated with another 500 cc IV fluid bolus in the ICU and central line placed. Levophed ordered for vasopressor support but not required. Source of sepsis appears to be pulmonary. Repeat Lactic normal. BCx NGTD. UCx mentioned below. Finished 7 Day course of antibiotics 05/31 for aspiration. WBC elevated again post hypoxic episode and trending down now. No change in cxr (3) Pneumonia: Qualifiers: Aspiration pneumonia type: unspecified Laterality: bilateral Lung location: unspecified part of lung Pneumonia type: aspiration pneumonia Qualified Code(s): J69.0 - Pneumonitis due to inhalation of food and vomit Code(s): J18.9 - Pneumonia, unspecified organism Status: Acute Assessment and Plan: CXR reviewed 06/03 showing improvement in the Rt lung airspace disease. Probably aspiration pneumonia. BCx and Sputum Cx negative. finished 7 Day antibiotic course 05/31 as per ID . Continue bronchodilators. Extubated 05/31 and now on RA. J-tube placed 05/29 by surgery repeat course of antibiotics started after hypoxic episode and stopped 06/04 and probable poor handling of his secretions . As per ID cxr no change (4) Abnormal urinalysis: Code(s): R82.90 - Unspecified abnormal findings in urine Status: Acute Assessment and Plan: UA noted. Urine culture growing VRE but 10-49K; consider contaminate or colonization. Blood cultures no growth to date and sputum negative. Linezolid stopped. Finished 7 D Unasyn for aspiration per ID (5) Leukocytosis: Qualifiers: Leukocytosis type: unspecified Qualified Code(s): D72.829 - Elevated white blood cell count, unspecified Code(s): D72.829 - Elevated white blood cell count, unspecified Status: Acute Assessment and Plan: Secondary to severe sepsis and pneumonia. White count normalize but back up 1/2. restarted cefipime and down to 18K today. (6) Dysphagia: Qualifiers: Dysphagia type: unspecified Qualified Code(s): R13.10 - Dysphagia, unspecified Code(s): R13.10 - Dysphagia, unspecified Status: Chronic Assessment and Plan: Chronic with GTube in place. NPO Tolerating tube feeds now per J tube. (7) Encephalopathy chronic: Code(s): G93.49 - Other encephalopathy Status: Chronic Assessment and Plan: Patient with acute on chronic encephalopathy. Acute process related to above. 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 More alert now. (8) Anemia: Code(s): D64.9 - Anemia, unspecified Status: Acute Assessment and Plan: Appears to be chronic. Was stable last admission in the 8 range. Hemoglobin 8.9 1/. Follow. (9
[2020-06-12 17:42] LABS: Glucose Point of Care 113 (65-105)
[2020-06-12 19:22] LABS: SARS-CoV-2 RNA PCR Negative
[2020-06-12 23:15] LABS: Glucose Point of Care 124 (65-105)
[2020-06-13] VITALS (10 sets, daily range): BP systolic 108–121; BP diastolic 73–78; PULSE 110–119; RESP 20–27; TEMP 36.7–37; O2SAT 93–100
[2020-06-13] MEDS: METOCLOPRAMIDE HCL 10 MG TABLET FEED TUBE ×4 (05:10→23:22)
[2020-06-13] MEDS: dilTIAZem HCL 60 MG TABLET FEED TUBE ×4 (05:10→23:22)
[2020-06-13 05:26] LABS: Glucose Point of Care 108 (65-105)
[2020-06-13] MEDS: DORNASE ALFA INH SOLN 1 MG/ML 2.5 ML AMP 2.5 MG INHALATION ×2 (08:10→20:01)
[2020-06-13] MEDS: FAMOTIDINE 20 MG TABLET FEED TUBE ×2 (10:29→18:14)
[2020-06-13] MEDS: ENOXAPARIN 40 MG/0.4 ML SYRINGE SUB-Q (10:29)
[2020-06-13] MEDS: busPIRone HCL 10 MG TABLET FEED TUBE ×3 (10:29→18:14)
[2020-06-13] MEDS: FOLIC ACID 1 MG TABLET FEED TUBE (10:29)
[2020-06-13 11:56] LABS: Glucose Point of Care 130 (65-105)
--- NOTE | 2020-06-13 16:15 | PM.IMPN ---
Progress Note: A&P Assessment and Plan (1) Acute respiratory failure with hypoxia and hypercarbia: Code(s): J96.01 - Acute respiratory failure with hypoxia; J96.02 - Acute respiratory failure with hypercapnia Status: Acute Assessment and Plan: . Acute respiratory failure is likely secondary pneumonia. COVID negative on 05/24/20. Influenza negative. Initially ventilated mechanically and extubated 05/31. Finished IV abx. restarted 1/2 per ID after hypoxic episode PM 06/01 and stopped 06/04 J tube placement 05/29 to try to avoid aspiration. G tube now out with amador in place will need intermittant suctioning at [place]. waiting on placement Patient has had a long hospital course due to recurrent aspirations and respiratory failure and difficulty handling his own secretions. Trying to arrange for facility that can handle the different suctioning Hopefully will be able to discharge in 1-2 days (2) Septic shock: Code(s): A41.9 - Sepsis, unspecified organism; R65.21 - Severe sepsis with septic shock Status: Acute Assessment and Plan: Lactic acid 2.9. WBC 18K with bandemia. Patient arrived from the ER hypotensive w/ BP of 77/44 mm Hg. He was treated with another 500 cc IV fluid bolus in the ICU and central line placed. Levophed ordered for vasopressor support but not required. Source of sepsis appears to be pulmonary. Repeat Lactic normal. BCx NGTD. UCx mentioned below. Finished 7 Day course of antibiotics 05/31 for aspiration. WBC elevated again post hypoxic episode and trending down now. No change in cxr (3) Pneumonia: Qualifiers: Aspiration pneumonia type: unspecified Laterality: bilateral Lung location: unspecified part of lung Pneumonia type: aspiration pneumonia Qualified Code(s): J69.0 - Pneumonitis due to inhalation of food and vomit Code(s): J18.9 - Pneumonia, unspecified organism Status: Acute Assessment and Plan: CXR reviewed 06/03 showing improvement in the Rt lung airspace disease. Probably aspiration pneumonia. BCx and Sputum Cx negative. finished 7 Day antibiotic course 05/31 as per ID . Continue bronchodilators. Extubated 05/31 and now on RA. J-tube placed 05/29 by surgery repeat course of antibiotics started after hypoxic episode and stopped 06/04 and probable poor handling of his secretions . As per ID cxr no change (4) Abnormal urinalysis: Code(s): R82.90 - Unspecified abnormal findings in urine Status: Acute Assessment and Plan: UA noted. Urine culture growing VRE but 10-49K; consider contaminate or colonization. Blood cultures no growth to date and sputum negative. Linezolid stopped. Finished 7 D Unasyn for aspiration per ID (5) Leukocytosis: Qualifiers: Leukocytosis type: unspecified Qualified Code(s): D72.829 - Elevated white blood cell count, unspecified Code(s): D72.829 - Elevated white blood cell count, unspecified Status: Acute Assessment and Plan: Secondary to severe sepsis and pneumonia. White count normalize but back up 1/2. restarted cefipime short course (6) Dysphagia: Qualifiers: Dysphagia type: unspecified Qualified Code(s): R13.10 - Dysphagia, unspecified Code(s): R13.10 - Dysphagia, unspecified Status: Chronic Assessment and Plan: Chronic with GTube in place. NPO Tolerating tube feeds now per J tube now. (7) Encephalopathy chronic: Code(s): G93.49 - Other encephalopathy Status: Chronic Assessment and Plan: Patient with acute on chronic encephalopathy. Acute process related to above. 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 More alert now. (8) Anemia: Code(s): D64.9 - Anemia, unspecified Status: Acute Assessment and Plan: Appears to be chronic. Was stable last admission in the 8 range. Hemoglobin 8.9 1/. Follow. (9) DVT
[2020-06-13 17:45] LABS: Glucose Point of Care 123 (65-105)
[2020-06-14] VITALS (10 sets, daily range): BP systolic 111–118; BP diastolic 60–72; PULSE 111–120; RESP 20–32; TEMP 36.7–36.9; O2SAT 91–96
[2020-06-14] LABS: Glucose Point of Care 122 (65-105)
[2020-06-14] MEDS: ACETAMINOPHEN ELIXIR 325 MG/10.15 ML UDC 650 MG FEED TUBE (05:03)
[2020-06-14] MEDS: dilTIAZem HCL 60 MG TABLET FEED TUBE ×3 (05:04→17:53)
[2020-06-14] MEDS: METOCLOPRAMIDE HCL 10 MG TABLET FEED TUBE ×3 (05:04→17:53)
[2020-06-14 05:17] LABS: Glucose Point of Care 123 (65-105)
[2020-06-14] MEDS: DORNASE ALFA INH SOLN 1 MG/ML 2.5 ML AMP 2.5 MG INHALATION ×2 (09:08→19:16)
[2020-06-14] MEDS: FAMOTIDINE 20 MG TABLET FEED TUBE ×2 (09:26→17:53)
[2020-06-14] MEDS: FOLIC ACID 1 MG TABLET FEED TUBE (09:26)
[2020-06-14] MEDS: busPIRone HCL 10 MG TABLET FEED TUBE ×3 (09:26→17:53)
[2020-06-14] MEDS: ENOXAPARIN 40 MG/0.4 ML SYRINGE SUB-Q (09:27)
[2020-06-14 11:46] LABS: Glucose Point of Care 130 (65-105)
--- NOTE | 2020-06-14 18:16 | P.PNIM_ITS ---
Progress Note: A&P Assessment and Plan (1) Acute respiratory failure with hypoxia and hypercarbia: Code(s): J96.01 - Acute respiratory failure with hypoxia; J96.02 - Acute respiratory failure with hypercapnia Status: Acute Assessment and Plan: . Acute respiratory failure is likely secondary pneumonia. COVID negative on 05/24/20. Influenza negative. Initially ventilated mechanically and extubated 05/31. Finished IV abx. restarted 1/2 per ID after hypoxic episode PM 06/01 and stopped 06/04 J tube placement 05/29 to try to avoid aspiration. G tube now out with amador in place will need intermittant suctioning at [place]. waiting on placement Patient has had a long hospital course due to recurrent aspirations and respiratory failure and difficulty handling his own secretions. Trying to arrange for facility that can handle the different suctioning Hopefully will be able to discharge in 1-2 days (2) Septic shock: Code(s): A41.9 - Sepsis, unspecified organism; R65.21 - Severe sepsis with septic shock Status: Acute Assessment and Plan: Lactic acid 2.9. WBC 18K with bandemia. Patient arrived from the ER hypotensive w/ BP of 77/44 mm Hg. He was treated with another 500 cc IV fluid bolus in the ICU and central line placed. Levophed ordered for vasopressor support but not required. Source of sepsis appears to be pulmonary. Repeat Lactic normal. BCx NGTD. UCx mentioned below. Finished 7 Day course of antibiotics 05/31 for aspiration. WBC elevated again post hypoxic episode and trending down now. No change in cxr (3) Pneumonia: Qualifiers: Aspiration pneumonia type: unspecified Laterality: bilateral Lung location: unspecified part of lung Pneumonia type: aspiration pneumonia Qualified Code(s): J69.0 - Pneumonitis due to inhalation of food and vomit Code(s): J18.9 - Pneumonia, unspecified organism Status: Acute Assessment and Plan: CXR reviewed 06/03 showing improvement in the Rt lung airspace disease. Probably aspiration pneumonia. BCx and Sputum Cx negative. finished 7 Day antibiotic course 05/31 as per ID . Continue bronchodilators. Extubated 05/31 and now on RA. J-tube placed 05/29 by surgery repeat course of antibiotics started after hypoxic episode and stopped 06/04 and probable poor handling of his secretions . As per ID cxr no change (4) Abnormal urinalysis: Code(s): R82.90 - Unspecified abnormal findings in urine Status: Acute Assessment and Plan: UA noted. Urine culture growing VRE but 10-49K; consider contaminate or colonization. Blood cultures no growth to date and sputum negative. Linezolid stopped. Finished 7 D Unasyn for aspiration per ID (5) Leukocytosis: Qualifiers: Leukocytosis type: unspecified Qualified Code(s): D72.829 - Elevated white blood cell count, unspecified Code(s): D72.829 - Elevated white blood cell count, unspecified Status: Acute Assessment and Plan: Secondary to severe sepsis and pneumonia. White count normalize but back up 1/2. restarted cefipime short course (6) Dysphagia: Qualifiers: Dysphagia type: unspecified Qualified Code(s): R13.10 - Dysphagia, unspecified Code(s): R13.10 - Dysphagia, unspecified Status: Chronic Assessment and Plan: Chronic with GTube in place. NPO Tolerating tube feeds now per J tube now. (7) Encephalopathy chronic: Code(s): G93.49 - Other encephalopathy Status: Chronic Assessment and Plan: Patient with acute on chronic encephalopathy. Acute p
[2020-06-14 18:37] LABS: Glucose Point of Care 145 (65-105)
[2020-06-15] VITALS (10 sets, daily range): BP systolic 103–127; BP diastolic 61–83; PULSE 107–124; RESP 18–28; TEMP 35.9–37.1; O2SAT 91–98
[2020-06-15] MEDS: METOCLOPRAMIDE HCL 10 MG TABLET FEED TUBE ×5 (00:40→23:56)
[2020-06-15] MEDS: dilTIAZem HCL 60 MG TABLET FEED TUBE ×5 (00:40→23:56)
[2020-06-15 00:41] LABS: Glucose Point of Care 124 (65-105)
[2020-06-15 06:12] LABS: Glucose Point of Care 120 (65-105)
[2020-06-15] MEDS: DORNASE ALFA INH SOLN 1 MG/ML 2.5 ML AMP 2.5 MG INHALATION (07:48)
[2020-06-15] MEDS: FOLIC ACID 1 MG TABLET FEED TUBE (09:53)
[2020-06-15] MEDS: FAMOTIDINE 20 MG TABLET FEED TUBE ×2 (09:53→16:49)
[2020-06-15] MEDS: ENOXAPARIN 40 MG/0.4 ML SYRINGE SUB-Q (09:53)
[2020-06-15] MEDS: busPIRone HCL 10 MG TABLET FEED TUBE ×3 (09:53→16:49)
--- NOTE | 2020-06-15 12:03 | PCNFU ---
Nutrition Follow-Up Complete: Inadequate oral intake related to inability to feed orally as evidence by need for mechanical ventilation Goal: Total intake will meet estimated nutrition needs Patient has met goal. No new goal. Pt current nutrition is Jevity 1.2 at 65 ml/hr . Last recorded weight is 44.2 kg, stable. Bowel Motility: BM reported 06/15 Labs Reviewed:BUN 24,Cr 0.5,Glu 112 Meds Noted: Folic Acid,Reglan,Lovenox Additional Notes: Nutrition follow up. Patient currently with J tube feedings of Jevity 1.2 at 65 ml/hr and tolerating. Tube feeding is providing patient with 1716 kcals/79 gms protein, meeting 100% of patients caloric needs. Monitoring: Nutrition plan, nutrition tolerance, weight, BMs, labs every Thursday/Thursday.
[2020-06-15 12:37] LABS: Glucose Point of Care 120 (65-105)
[2020-06-15 18:28] LABS: Glucose Point of Care 128 (65-105)
[2020-06-16] VITALS (18 sets, daily range): BP systolic 101–127; BP diastolic 61–75; PULSE 108–139; RESP 16–30; TEMP 36.8–39.6; O2SAT 95–100
[2020-06-16 00:29] LABS: Glucose Point of Care 118 (65-105)
[2020-06-16] MEDS: ACETAMINOPHEN ELIXIR 325 MG/10.15 ML UDC 650 MG FEED TUBE ×2 (05:46→14:13)
[2020-06-16] MEDS: METOCLOPRAMIDE HCL 10 MG TABLET FEED TUBE ×4 (05:47→23:41)
[2020-06-16] MEDS: dilTIAZem HCL 60 MG TABLET FEED TUBE ×4 (05:47→23:41)
[2020-06-16 06:34] LABS: Basophils Percent Auto 0.2 % (0.2-1.2); Eosinophils Absolute Auto 0.6 K/mm3 (0-0.3); Eosinophils Percent Auto 3.9 % (0-4.4); Hematocrit 30.6 % (42.0-52.0); Hemoglobin 8.8 g/dL (14.0-18.0); Immature Granulocyte Absolute 0.06 K/mm3 (0.00-0.031); Immature Granulocyte Percent A 0.4 % (0-0.5); Lymphocytes Absolute Auto 2.24 K/mm3 (0.9-3.2); Mean Corpuscular HGB Conc 28.8 g/dl (32-36); Mean Corpuscular Hemoglobin 22.3 pg (26-34); Mean Corpuscular Volume 77.7 fl (80-100); Mean Platelet Volume 10.7 fl (7.4-10.4); Monocytes Absolute Auto 0.9 K/mm3 (0.1-0.6); Monocytes Percent Auto 5.8 % (2.6-8.5); Neutrophils Absolute Auto 12.1 K/mm3 (1.3-6.7); Neutrophils Percent Auto 75.7 % (45.5-73.1); Platelet Count Result 611 k/mm3 (150-375); Red Blood Count 3.94 M/mm3 (4.6-6.20); Red Cell Distribution Width 18.1 % (11.5-14.5)
[2020-06-16 06:47] LABS: Glucose Point of Care 121 (65-105)
[2020-06-16 06:49] LABS: Anion Gap 8 mmol/L (8-16); Blood Urea Nitrogen 26 mg/dL (9-20); Calcium 9.1 mg/dL (8.4-10.2); Carbon Dioxide 30 mmol/L (22-30); Chloride 107 mmol/L (98-107); Estimated CRCL calculation 71 ml/min; Estimated Glomerular Filt Rate > 60; Glucose 125 mg/dL (75-110); Potassium 4.4 mmol/L (3.4-5.0); Sodium 145 mmol/L (137-145)
[2020-06-16 07:48] LABS: Platelet Estimate Increased (Adequate)
[2020-06-16 07:49] LABS: Anisocytosis 1+ (NORMAL); Hypochromasia 1+ (NORMAL); Poikilocytosis 1+ (NORMAL); Stomatocytes 1+ (NORMAL); Target Cells 1+ (NORMAL)
[2020-06-16] MEDS: FOLIC ACID 1 MG TABLET FEED TUBE (08:12)
[2020-06-16] MEDS: busPIRone HCL 10 MG TABLET FEED TUBE ×3 (08:12→16:27)
[2020-06-16] MEDS: FAMOTIDINE 20 MG TABLET FEED TUBE ×2 (08:12→16:27)
[2020-06-16] MEDS: ENOXAPARIN 40 MG/0.4 ML SYRINGE SUB-Q (08:12)
[2020-06-16 12:03] LABS: Glucose Point of Care 107 (65-105)
--- NOTE | 2020-06-16 14:17 | PM.IMPN ---
Progress Note: A&P Assessment and Plan (1) Acute respiratory failure with hypoxia and hypercarbia: Code(s): J96.01 - Acute respiratory failure with hypoxia; J96.02 - Acute respiratory failure with hypercapnia Status: Acute Assessment and Plan: . Acute respiratory failure is likely secondary pneumonia. COVID negative on 05/24/20. Influenza negative. Initially ventilated mechanically and extubated 05/31. Finished IV abx. restarted 1/2 per ID after hypoxic episode PM 06/01 and stopped 06/04 J tube placement 05/29 to try to avoid aspiration. G tube now out with amador in place will need intermittant suctioning at OR. waiting on placement Patient has had a long hospital course due to recurrent aspirations and respiratory failure and difficulty handling his own secretions. Trying to arrange for facility that can handle the different suctioning Fever again today 06/16 with new infiltrate on right lower lobe . Cultured and placed on Zosyn and vanc (2) Septic shock: Code(s): A41.9 - Sepsis, unspecified organism; R65.21 - Severe sepsis with septic shock Status: Acute Assessment and Plan: Lactic acid 2.9. WBC 18K with bandemia. Patient arrived from the ER hypotensive w/ BP of 77/44 mm Hg. He was treated with another 500 cc IV fluid bolus in the ICU and central line placed. Levophed ordered for vasopressor support but not required. Source of sepsis appears to be pulmonary. Repeat Lactic normal. BCx NGTD. UCx mentioned below. Finished 7 Day course of antibiotics 05/31 for aspiration. WBC elevated again post hypoxic episode Chest x-ray today showed new infiltrate, spiked fever, and WBC 93779. (3) Pneumonia: Qualifiers: Aspiration pneumonia type: unspecified Laterality: bilateral Lung location: unspecified part of lung Pneumonia type: aspiration pneumonia Qualified Code(s): J69.0 - Pneumonitis due to inhalation of food and vomit Code(s): J18.9 - Pneumonia, unspecified organism Status: Acute Assessment and Plan: CXR reviewed 06/03 showing improvement in the Rt lung airspace disease. Probably aspiration pneumonia. BCx and Sputum Cx negative. finished 7 Day antibiotic course 05/31 as per ID . Continue bronchodilators. Extubated 05/31 and now on RA. J-tube placed 05/29 by surgery repeat course of antibiotics started after hypoxic episode and stopped 06/04 and probable poor handling of his secretions . As above chest x-ray today 06/16 revealed right lower lobe infiltrate and vanc and Zosyn restarted with fever and leukocytosis (4) Abnormal urinalysis: Code(s): R82.90 - Unspecified abnormal findings in urine Status: Acute Assessment and Plan: UA noted. Urine culture growing VRE but 10-49K; consider contaminate or colonization. Blood cultures no growth to date and sputum negative. Linezolid stopped. Finished 7 D Unasyn for aspiration per ID (5) Leukocytosis: Qualifiers: Leukocytosis type: unspecified Qualified Code(s): D72.829 - Elevated white blood cell count, unspecified Code(s): D72.829 - Elevated white blood cell count, unspecified Status: Acute Assessment and Plan: Secondary to severe sepsis and pneumonia. White count elevated again today and vanc and Zosyn started (6) Dysphagia: Qualifiers: Dysphagia type: unspecified Qualified Code(s): R13.10 - Dysphagia, unspecified Code(s): R13.10 - Dysphagia, unspecified Status: Chronic Assessment and Plan: Chronic with GTube in place. NPO Tolerating tube feeds now per J tube now. (7) Encephalopathy chronic: Code(s): G93.49 - Other encephalopathy Status: Chronic Assessment and Plan: Patient with acute on chronic encephalopathy. Acute process related to above. 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 More alert now. (8) Anemia: Code(s): D64.9
[2020-06-16 17:27] LABS: Glucose Point of Care 138 (65-105)
[2020-06-16 23:54] LABS: Glucose Point of Care 129 (65-105)
[2020-06-17] VITALS (19 sets, daily range): BP systolic 87–104; BP diastolic 48–65; PULSE 73–126; RESP 18–34; TEMP 36.7–38.3; O2SAT 91–97
[2020-06-17] MEDS: ACETAMINOPHEN ELIXIR 325 MG/10.15 ML UDC 650 MG FEED TUBE ×2 (04:19→20:17)
[2020-06-17 06:01] LABS: Basophils Absolute Auto 0.1 K/mm3 (0.0-0.1); Basophils Percent Auto 0.3 % (0.2-1.2); Eosinophils Absolute Auto 0.3 K/mm3 (0-0.3); Eosinophils Percent Auto 1.7 % (0-4.4); Hematocrit 26.1 % (42.0-52.0); Hemoglobin 7.8 g/dL (14.0-18.0); Immature Granulocyte Percent A 0.5 % (0-0.5); Lymphocytes Percent Auto 7.2 % (18.3-44.2); Mean Corpuscular HGB Conc 29.9 g/dl (32-36); Mean Platelet Volume 11.1 fl (7.4-10.4); Monocytes Absolute Auto 1.4 K/mm3 (0.1-0.6); Monocytes Percent Auto 7.3 % (2.6-8.5); Neutrophils Absolute Auto 16.2 K/mm3 (1.3-6.7); Platelet Count Result 546 k/mm3 (150-375); Red Blood Count 3.39 M/mm3 (4.6-6.20); White Blood Count 19.6 K/mm3 (4.5-10.0)
[2020-06-17 06:17] LABS: Anion Gap 5 mmol/L (8-16); Blood Urea Nitrogen 32 mg/dL (9-20); Calcium 8.7 mg/dL (8.4-10.2); Carbon Dioxide 32 mmol/L (22-30); Chloride 106 mmol/L (98-107); Estimated CRCL calculation 36 ml/min; Estimated Glomerular Filt Rate > 60; Glucose 126 mg/dL (75-110); Potassium 3.6 mmol/L (3.4-5.0); Sodium 143 mmol/L (137-145)
[2020-06-17] MEDS: dilTIAZem HCL 60 MG TABLET FEED TUBE ×4 (06:17→23:08)
[2020-06-17] MEDS: METOCLOPRAMIDE HCL 10 MG TABLET FEED TUBE ×4 (06:18→23:08)
[2020-06-17 06:25] LABS: Glucose Point of Care 127 (65-105)
[2020-06-17 06:59] LABS: Platelet Estimate Increased (Adequate)
[2020-06-17 07:04] LABS: Anisocytosis 1+ (NORMAL); Hypochromasia 1+ (NORMAL); Target Cells 1+ (NORMAL)
[2020-06-17 10:25] LABS: Glucose Point of Care 142 (65-105)
[2020-06-17] MEDS: FAMOTIDINE 20 MG TABLET FEED TUBE ×2 (10:40→16:15)
[2020-06-17] MEDS: FOLIC ACID 1 MG TABLET FEED TUBE (10:40)
[2020-06-17] MEDS: busPIRone HCL 10 MG TABLET FEED TUBE ×3 (10:40→16:15)
[2020-06-17] MEDS: ENOXAPARIN 40 MG/0.4 ML SYRINGE SUB-Q (10:41)
--- NOTE | 2020-06-17 15:20 | PM.IMPN ---
Progress Note: A&P Assessment and Plan (1) Acute respiratory failure with hypoxia and hypercarbia: Code(s): J96.01 - Acute respiratory failure with hypoxia; J96.02 - Acute respiratory failure with hypercapnia Status: Acute Assessment and Plan: . Acute respiratory failure is likely secondary pneumonia. COVID negative on 05/24/20. Influenza negative. Initially ventilated mechanically and extubated 05/31. Finished IV abx. restarted 1/2 per ID after hypoxic episode PM 06/01 and stopped 06/04 J tube placement 05/29 to try to avoid aspiration. G tube now out with amador in place will need intermittant suctioning at [place]. waiting on placement Patient has had a long hospital course due to recurrent aspirations and respiratory failure and difficulty handling his own secretions. Trying to arrange for facility that can handle the different suctioning Fever again today 06/16 with new infiltrate on right lower lobe . Cultured and placed on Zosyn and vanc for another round of PNA rx. (2) Septic shock: Code(s): A41.9 - Sepsis, unspecified organism; R65.21 - Severe sepsis with septic shock Status: Acute Assessment and Plan: Lactic acid 2.9. WBC 18K with bandemia. Patient arrived from the ER hypotensive w/ BP of 77/44 mm Hg. He was treated with another 500 cc IV fluid bolus in the ICU and central line placed. Levophed ordered for vasopressor support but not required. Source of sepsis appears to be pulmonary. Repeat Lactic normal. BCx NGTD. UCx mentioned below. Finished 7 Day course of antibiotics 05/31 for aspiration. WBC elevated again post hypoxic episode Chest x-ray 06/16 showed new infiltrate, spiked fever, and WBC 20269. (3) Pneumonia: Qualifiers: Aspiration pneumonia type: unspecified Laterality: bilateral Lung location: unspecified part of lung Pneumonia type: aspiration pneumonia Qualified Code(s): J69.0 - Pneumonitis due to inhalation of food and vomit Code(s): J18.9 - Pneumonia, unspecified organism Status: Acute Assessment and Plan: CXR reviewed 06/03 showing improvement in the Rt lung airspace disease. Probably aspiration pneumonia. BCx and Sputum Cx negative. finished 7 Day antibiotic course 05/31 as per ID . Continue bronchodilators. Extubated 05/31 and now on RA. J-tube placed 05/29 by surgery repeat course of antibiotics started after hypoxic episode and stopped 06/04 and probable poor handling of his secretions . As above chest x-ray today 06/16 revealed right lower lobe infiltrate and vanc and Zosyn restarted with fever and leukocytosis rx of pna probable apiration but cover for HCP (4) Abnormal urinalysis: Code(s): R82.90 - Unspecified abnormal findings in urine Status: Acute Assessment and Plan: UA noted. Urine culture growing VRE but 10-49K; consider contaminate or colonization. Blood cultures no growth to date and sputum negative. Linezolid stopped. Finished 7 D Unasyn for aspiration per ID (5) Leukocytosis: Qualifiers: Leukocytosis type: unspecified Qualified Code(s): D72.829 - Elevated white blood cell count, unspecified Code(s): D72.829 - Elevated white blood cell count, unspecified Status: Acute Assessment and Plan: Secondary to severe sepsis and pneumonia. White count elevated again today and vanc and Zosyn started 06/26 (6) Dysphagia: Qualifiers: Dysphagia type: unspecified Qualified Code(s): R13.10 - Dysphagia, unspecified Code(s): R13.10 - Dysphagia, unspecified Status: Chronic Assessment and Plan: Chronic with GTube in place. NPO Tolerating tube feeds now per J tube now. (7) Encephalopathy chronic: Code(s): G93.49 - Other encephalopathy Status: Chronic Assessment and Plan: Patient with acute on chronic encephalopathy. Acute process related to above. Chronic encephalopathy associated with hydrocephalus with evidenc
[2020-06-17 18:40] LABS: Glucose Point of Care 139 (65-105)
[2020-06-17 23:08] LABS: Glucose Point of Care 134 (65-105)
[2020-06-18] VITALS (14 sets, daily range): BP systolic 89–110; BP diastolic 43–80; PULSE 110–130; RESP 16–49; TEMP 36.9–38.7; O2SAT 94–98
[2020-06-18] MEDS: ACETAMINOPHEN ELIXIR 325 MG/10.15 ML UDC 650 MG FEED TUBE ×2 (02:23→17:03)
[2020-06-18 05:04] LABS: Glucose Point of Care 144 (65-105)
[2020-06-18] MEDS: METOCLOPRAMIDE HCL 10 MG TABLET FEED TUBE ×4 (05:05→23:06)
[2020-06-18] MEDS: dilTIAZem HCL 60 MG TABLET FEED TUBE ×4 (05:05→23:06)
[2020-06-18 06:07] LABS: Basophils Percent Auto 0.2 % (0.2-1.2); Eosinophils Absolute Auto 0.5 K/mm3 (0-0.3); Eosinophils Percent Auto 3.9 % (0-4.4); Hemoglobin 7.6 g/dL (14.0-18.0); Immature Granulocyte Absolute 0.04 K/mm3 (0.00-0.031); Immature Granulocyte Percent A 0.3 % (0-0.5); Lymphocytes Absolute Auto 1.18 K/mm3 (0.9-3.2); Lymphocytes Percent Auto 9.5 % (18.3-44.2); Mean Corpuscular HGB Conc 29.2 g/dl (32-36); Mean Corpuscular Hemoglobin 22.4 pg (26-34); Mean Corpuscular Volume 76.7 fl (80-100); Mean Platelet Volume 11.2 fl (7.4-10.4); Monocytes Percent Auto 8.3 % (2.6-8.5); Neutrophils Absolute Auto 9.7 K/mm3 (1.3-6.7); Neutrophils Percent Auto 77.8 % (45.5-73.1); Platelet Count Result 507 k/mm3 (150-375); Red Blood Count 3.39 M/mm3 (4.6-6.20); White Blood Count 12.5 K/mm3 (4.5-10.0)
[2020-06-18 06:16] LABS: Anion Gap 7 mmol/L (8-16); Blood Urea Nitrogen 36 mg/dL (9-20); Calcium 8.7 mg/dL (8.4-10.2); Carbon Dioxide 34 mmol/L (22-30); Chloride 106 mmol/L (98-107); Estimated CRCL calculation 38 ml/min; Estimated Glomerular Filt Rate > 60; Glucose 142 mg/dL (75-110); Potassium 3.4 mmol/L (3.4-5.0); Sodium 147 mmol/L (137-145)
[2020-06-18 07:07] LABS: Hypochromasia 1+ (NORMAL)
[2020-06-18 07:08] LABS: Platelet Estimate Adequate (Adequate)
[2020-06-18] MEDS: ENOXAPARIN 40 MG/0.4 ML SYRINGE SUB-Q (08:13)
[2020-06-18] MEDS: FAMOTIDINE 20 MG TABLET FEED TUBE ×2 (08:13→16:50)
[2020-06-18] MEDS: busPIRone HCL 10 MG TABLET FEED TUBE ×3 (08:13→16:50)
[2020-06-18] MEDS: KCL 20 MEQ/0.45% NS 1,000 ML 100 ML IV CONT ×2 (08:13→19:18)
[2020-06-18] MEDS: FOLIC ACID 1 MG TABLET FEED TUBE (08:14)
[2020-06-18 12:05] LABS: Glucose Point of Care 116 (65-105)
--- NOTE | 2020-06-18 15:49 | PM.IMPN ---
Progress Note: A&P Assessment and Plan (1) Acute respiratory failure with hypoxia and hypercarbia: Code(s): J96.01 - Acute respiratory failure with hypoxia; J96.02 - Acute respiratory failure with hypercapnia Status: Acute Assessment and Plan: . Acute respiratory failure is likely secondary pneumonia. COVID negative on 05/24/20. Influenza negative. Initially ventilated mechanically and extubated 05/31. Finished IV abx. restarted 1/2 per ID after hypoxic episode PM 06/01 and stopped 06/04 J tube placement 05/29 to try to avoid aspiration. G tube now out with amador in place will need intermittant suctioning at [place]. waiting on placement Patient has had a long hospital course due to recurrent aspirations and respiratory failure and difficulty handling his own secretions. Trying to arrange for facility that can handle the different suctioning Fever again today 06/16 with new infiltrate on right lower lobe . Cultured and placed on Zosyn and vanc(D# 3) for another round of PNA rx. (2) Septic shock: Code(s): A41.9 - Sepsis, unspecified organism; R65.21 - Severe sepsis with septic shock Status: Acute Assessment and Plan: Lactic acid 2.9. WBC 18K with bandemia. Patient arrived from the ER hypotensive w/ BP of 77/44 mm Hg. He was treated with another 500 cc IV fluid bolus in the ICU and central line placed. Levophed ordered for vasopressor support but not required. Source of sepsis appears to be pulmonary. Repeat Lactic normal. BCx NGTD. UCx mentioned below. Finished 7 Day course of antibiotics 05/31 for aspiration. WBC elevated again post hypoxic episode Chest x-ray 06/16 showed new infiltrate, spiked fever, and WBC 65889 back on antibiotics and wbc decreased today 12k. (3) Pneumonia: Qualifiers: Aspiration pneumonia type: unspecified Laterality: bilateral Lung location: unspecified part of lung Pneumonia type: aspiration pneumonia Qualified Code(s): J69.0 - Pneumonitis due to inhalation of food and vomit Code(s): J18.9 - Pneumonia, unspecified organism Status: Acute Assessment and Plan: CXR reviewed 06/03 showing improvement in the Rt lung airspace disease. Probably aspiration pneumonia. BCx and Sputum Cx negative. finished 7 Day antibiotic course 05/31 as per ID . Continue bronchodilators. Extubated 05/31 and now on RA. J-tube placed 05/29 by surgery repeat course of antibiotics started after hypoxic episode and stopped 06/04 and probable poor handling of his secretions . As above chest x-ray 06/16 revealed right lower lobe infiltrate and vanc and Zosyn restarted with fever and leukocytosis rx of pna probable apiration but cover for HCP (4) Abnormal urinalysis: Code(s): R82.90 - Unspecified abnormal findings in urine Status: Acute Assessment and Plan: UA noted. Urine culture growing VRE but 10-49K; consider contaminate or colonization. Blood cultures no growth to date and sputum negative. Linezolid stopped. Finished 7 D Unasyn for aspiration per ID (5) Leukocytosis: Qualifiers: Leukocytosis type: unspecified Qualified Code(s): D72.829 - Elevated white blood cell count, unspecified Code(s): D72.829 - Elevated white blood cell count, unspecified Status: Acute Assessment and Plan: Secondary to severe sepsis and pneumonia. White count elevated again 06/17 and vanc and Zosyn restarted 06/16 (6) Dysphagia: Qualifiers: Dysphagia type: unspecified Qualified Code(s): R13.10 - Dysphagia, unspecified Code(s): R13.10 - Dysphagia, unspecified Status: Chronic Assessment and Plan: Chronic with GTube in place. NPO Tolerating tube feeds now per J tube now. and suction of amador G tube prn (7) Encephalopathy chronic: Code(s): G93.49 - Other encephalopathy Status: Chronic Assessment and Plan: Patient with acute on chronic encephalopathy. Acute process
[2020-06-18 17:41] LABS: Glucose Point of Care 122 (65-105)
[2020-06-18 23:06] LABS: Glucose Point of Care 101 (65-105)
[2020-06-19] VITALS (17 sets, daily range): BP systolic 94–142; BP diastolic 48–78; PULSE 94–115; RESP 20–32; TEMP 36.6–37.8; O2SAT 91–100; BMI 13.5
[2020-06-19 05:16] LABS: Glucose Point of Care 113 (65-105)
[2020-06-19] MEDS: METOCLOPRAMIDE HCL 10 MG TABLET FEED TUBE ×4 (05:17→23:42)
[2020-06-19] MEDS: KCL 20 MEQ/0.45% NS 1,000 ML 100 ML IV CONT ×2 (05:17→21:07)
[2020-06-19] MEDS: dilTIAZem HCL 60 MG TABLET FEED TUBE ×4 (05:17→23:42)
[2020-06-19 05:48] LABS: Basophils Percent Auto 0.2 % (0.2-1.2); Eosinophils Absolute Auto 0.4 K/mm3 (0-0.3); Eosinophils Percent Auto 4.5 % (0-4.4); Hematocrit 21.4 % (42.0-52.0); Immature Granulocyte Absolute 0.03 K/mm3 (0.00-0.031); Immature Granulocyte Percent A 0.4 % (0-0.5); Lymphocytes Absolute Auto 1.43 K/mm3 (0.9-3.2); Mean Corpuscular HGB Conc 29.4 g/dl (32-36); Mean Corpuscular Hemoglobin 22.8 pg (26-34); Mean Corpuscular Volume 77.5 fl (80-100); Mean Platelet Volume 10.9 fl (7.4-10.4); Monocytes Absolute Auto 0.7 K/mm3 (0.1-0.6); Monocytes Percent Auto 8.6 % (2.6-8.5); Neutrophils Absolute Auto 5.8 K/mm3 (1.3-6.7); Neutrophils Percent Auto 69.3 % (45.5-73.1); Platelet Count Result 459 k/mm3 (150-375); Red Blood Count 2.76 M/mm3 (4.6-6.20); Red Cell Distribution Width 18.2 % (11.5-14.5); White Blood Count 8.4 K/mm3 (4.5-10.0)
[2020-06-19 06:05] LABS: Anion Gap 3 mmol/L (8-16); Blood Urea Nitrogen 24 mg/dL (9-20); Calcium 8.2 mg/dL (8.4-10.2); Carbon Dioxide 31 mmol/L (22-30); Chloride 110 mmol/L (98-107); Estimated CRCL calculation 48 ml/min; Estimated Glomerular Filt Rate > 60; Glucose 120 mg/dL (75-110); Potassium 3.9 mmol/L (3.4-5.0); Sodium 144 mmol/L (137-145)
[2020-06-19 06:20] LABS: Hemoglobin 6.3 g/dL (14.0-18.0)
[2020-06-19 06:21] LABS: Platelet Estimate Adequate (Adequate); Target Cells 1+ (NORMAL)
[2020-06-19 06:22] LABS: Hypochromasia 2+ (NORMAL)
[2020-06-19] MEDS: ENOXAPARIN 40 MG/0.4 ML SYRINGE SUB-Q (08:29)
[2020-06-19] MEDS: FAMOTIDINE 20 MG TABLET FEED TUBE ×2 (08:29→17:01)
[2020-06-19] MEDS: FOLIC ACID 1 MG TABLET FEED TUBE (08:29)
[2020-06-19] MEDS: busPIRone HCL 10 MG TABLET FEED TUBE ×3 (08:29→17:01)
--- NOTE | 2020-06-19 11:26 | PCNFU ---
Nutrition Follow-Up Complete: Inadequate oral intake related to inability to feed orally as evidence by need for mechanical ventilation Goal: Total intake will meet estimated nutrition needs Patient is at current goal. We will continue current goal. Pt current nutrition is Jevity 1.2 at 70 ml/hr. Last recorded weight is 36.8 kg, down from 37.1 kg. Bowel Motility:+BM reported-loose stools. Labs Reviewed: Glu 120,Hgb 6.3 Meds Noted:Reglan, Folic Acid, Zocyn, Buspar Additional Notes: Nutrition follow up today. Spoke with MD today regarding adding Banatrol Plus for stool bulking due to loose stools. Per weight documented, patient weight has been down 20 ibs since admit. Tube feedings of Jevity 1.2 increased from 65 ml/hr to 70 ml/hr, which is providing patient with 1848 kcals and 85 gms of protein. Meeting 100% of patients caloric needs. Patient started a fever on 06/16, fever again and new infiltrate on chest xray. Monitoring: Nutrition plan, nutrition tolerance, weight, BMs, labs every Thursday and Thursday.
[2020-06-19] MEDS: SODIUM CHLORIDE 0.9% IV 250 ML 30 ML IV CONT (11:34)
[2020-06-19 12:06] LABS: Glucose Point of Care 135 (65-105)
[2020-06-19 14:03] LABS: Hemoglobin 8.1 g/dL (14.0-18.0)
[2020-06-19 17:27] LABS: Glucose Point of Care 112 (65-105)
--- NOTE | 2020-06-19 19:25 | PM.IMPN ---
Progress Note: A&P Assessment and Plan (1) Jejunostomy tube fell out: Code(s): T85.528A - Displacement of other gastrointestinal prosthetic devices, implants and grafts, initial encounter Status: Acute Assessment and Plan: S/p replacement Continue local care. (2) Nutrition disorder: Code(s): E63.9 - Nutritional deficiency, unspecified Status: Acute Assessment and Plan: Tolerating tube feedings (3) Gastrostomy tube dysfunction: Code(s): K94.23 - Gastrostomy malfunction Status: Acute Assessment and Plan: S/p replacement. (4) Aspiration into airway: Code(s): T17.908A - Unspecified foreign body in respiratory tract, part unspecified causing other injury, initial encounter Status: Acute Assessment and Plan: Resolved G-tube in place J-tube in place NPO (5) Encephalopathy chronic: Code(s): G93.49 - Other encephalopathy Status: Chronic Assessment and Plan: Supportive care. (6) Acute respiratory failure with hypoxia and hypercarbia: Code(s): J96.01 - Acute respiratory failure with hypoxia; J96.02 - Acute respiratory failure with hypercapnia Status: Acute Assessment and Plan: Resolved. (7) Acute respiratory failure with hypoxia: Code(s): J96.01 - Acute respiratory failure with hypoxia Status: Acute Assessment and Plan: Resolved. Subjective Date/time seen: 06/19/20 19:25 Patient is non verbal. Review of Systems Review of Systems: Narrative: Persistent vegetative stage. Exam Narrative: Exam Narrative: Lying in bed. Const: General: other (Chronically ill looking.) Nutritional Appearance: thin Limitations: altered mental status Other: Encephalopathy. HENMT: Head: normal to inspection and normocephalic Face and sinus: normal facial exam Eyes: General: appearance normal, both eyes and all related structures Pupils: Equal, round and reactive pupils present EOM: EOMs intact bilaterally Neck: Neck: no lymphadenopathy, supple and no JVD Resp: Auscultation: clear to auscultation bilaterally Cardio: Rate: regular rate Rhythm: regular rhythm GI: Inspection: other (G-tube and J-tube in place.) GI Palp: Yes Soft to palpation and Yes No hepatosplenomegaly present Skin: General skin exam: pallor Wounds: no wounds (G-tube, J-tube in place.) Neuro: General: other (Persistent vegetative stage.) Extrem: General: no pedal edema Objective Data Vital Signs Vital Signs: Vital Signs - 24 hr 06/18/20 20:56 06/18/20 21:53 06/19/20 02:40 Temperature 98.6 F Pulse Rate 113 H 113 H 104 H Respiratory Rate 16 20 28 H Blood Pressure 109/43 L Pulse Oximetry 94 95 06/19/20 06:00 06/19/20 08:21 06/19/20 08:38 Temperature 98.8 F 99.5 F 100.0 F H Pulse Rate 113 H 113 H 112 H Respiratory Rate 28 H 20 20 Blood Pressure 94/48 L 110/57 L 119/58 L Pulse Oximetry 91 97 96 06/19/20 08:56 06/19/20 08:57 06/19/20 09:38 Temperature 99.1 F Pulse Rate 111 H 111 H 107 H Respiratory Rate 22 H 32 H Blood Pressure 108/61 Pulse Oximetry 100 98 06/19/20 10:00 06/19/20 10:38 06/19/20 11:30 Temperature 99.1 F 98.0 F 98.3 F Pulse Rate 107 H 105 H 108 H Respiratory Rate 32 H 22 H 20 Blood Pressure 108/61 100/57 L 106/63 Pulse Oximetry 98 95 94 06/19/20 14:28 06/19/20 14:50 06/19/20 16:00 Temperature 97.8 F Pulse Rate 102 H 102 H 115 H Respiratory Rate 22 H 22 H 24 H Blood Pressure 142/78 H Pulse Oximetry 98 Intake/Output Intake/Output: Intake & Output 06/16/20 06/17/20 06/18/20 06/19/20 23:59 23:59 23:59 23:59 Intake Total 2121 1305 1200 1150 Output Total 850 8432 992 7036 Balance 1271 305 700 150 Meds/Results Medications: Active Medications Generic Name Dose Route Start Last Admin Trade Name Freq PRN Reason Stop Dose Admin Acetaminophen 650 mg 06/03/20 17:00 06/18/20 17:03 Acetaminophen Elixir 325 Mg/10.15 Ml Udc FEED TUBE 650 mg Q
[2020-06-19 23:46] LABS: Glucose Point of Care 102 (65-105)
[2020-06-20] VITALS (10 sets, daily range): BP systolic 93–108; BP diastolic 52–69; PULSE 90–112; RESP 18–20; TEMP 35.8–36.4; O2SAT 94–100
--- NOTE | 2020-06-20 04:15 | PCRCNOTE ---
Window of time for administration has passed. See next scheduled administration.
[2020-06-20] MEDS: dilTIAZem HCL 60 MG TABLET FEED TUBE ×4 (05:48→23:28)
[2020-06-20] MEDS: METOCLOPRAMIDE HCL 10 MG TABLET FEED TUBE ×4 (05:48→23:28)
[2020-06-20 06:14] LABS: Glucose Point of Care 94 (65-105)
[2020-06-20] MEDS: KCL 20 MEQ/0.45% NS 1,000 ML 100 ML IV CONT ×2 (08:04→18:36)
[2020-06-20] MEDS: FOLIC ACID 1 MG TABLET FEED TUBE (09:29)
[2020-06-20] MEDS: ENOXAPARIN 40 MG/0.4 ML SYRINGE SUB-Q (09:29)
[2020-06-20] MEDS: FAMOTIDINE 20 MG TABLET FEED TUBE ×2 (09:29→17:07)
[2020-06-20] MEDS: busPIRone HCL 10 MG TABLET FEED TUBE ×3 (09:29→17:07)
[2020-06-20 13:03] LABS: Glucose Point of Care 105 (65-105)
[2020-06-20 18:23] LABS: Glucose Point of Care 118 (65-105)
[2020-06-20 23:24] LABS: Glucose Point of Care 102 (65-105)
[2020-06-21] VITALS (9 sets, daily range): BP systolic 93–105; BP diastolic 60–69; PULSE 91–103; RESP 18–20; TEMP 36–36.4; O2SAT 90–98
[2020-06-21] MEDS: METOCLOPRAMIDE HCL 10 MG TABLET FEED TUBE ×4 (05:13→23:03)
[2020-06-21] MEDS: dilTIAZem HCL 60 MG TABLET FEED TUBE ×4 (05:13→23:03)
[2020-06-21] MEDS: KCL 20 MEQ/0.45% NS 1,000 ML 100 ML IV CONT ×2 (05:45→16:41)
[2020-06-21 05:47] LABS: Glucose Point of Care 101 (65-105)
[2020-06-21] MEDS: busPIRone HCL 10 MG TABLET FEED TUBE ×3 (10:11→17:46)
[2020-06-21] MEDS: FOLIC ACID 1 MG TABLET FEED TUBE (10:11)
[2020-06-21] MEDS: ENOXAPARIN 40 MG/0.4 ML SYRINGE SUB-Q (10:11)
[2020-06-21] MEDS: FAMOTIDINE 20 MG TABLET FEED TUBE ×2 (10:11→17:46)
[2020-06-21 11:26] LABS: Glucose Point of Care 120 (65-105)
[2020-06-21 16:38] LABS: Hematocrit 26.8 % (42.0-52.0); Hemoglobin 8.2 g/dL (14.0-18.0); Mean Corpuscular HGB Conc 30.6 g/dl (32-36); Mean Corpuscular Hemoglobin 23.6 pg (26-34); Mean Platelet Volume 11.1 fl (7.4-10.4); Platelet Count Result 436 k/mm3 (150-375); Red Blood Count 3.48 M/mm3 (4.6-6.20); Red Cell Distribution Width 17.3 % (11.5-14.5); White Blood Count 7.8 K/mm3 (4.5-10.0)
[2020-06-21 17:44] LABS: Anion Gap 5 mmol/L (8-16); Blood Urea Nitrogen 13 mg/dL (9-20); Calcium 7.9 mg/dL (8.4-10.2); Carbon Dioxide 25 mmol/L (22-30); Chloride 103 mmol/L (98-107); Estimated CRCL calculation 74 ml/min; Estimated Glomerular Filt Rate > 60; Glucose 83 mg/dL (75-110); Potassium 4.6 mmol/L (3.4-5.0); Sodium 133 mmol/L (137-145)
[2020-06-21 18:05] LABS: Glucose Point of Care 93 (65-105)
--- NOTE | 2020-06-21 18:16 | PM.IMPN ---
Progress Note: A&P Assessment and Plan (1) Jejunostomy tube fell out: Code(s): T85.528A - Displacement of other gastrointestinal prosthetic devices, implants and grafts, initial encounter Status: Acute Assessment and Plan: S/p replacement Continue local care Continue to monitor (2) Nutrition disorder: Code(s): E63.9 - Nutritional deficiency, unspecified Status: Acute Assessment and Plan: Tolerating tube feedings. (3) Gastrostomy tube dysfunction: Code(s): K94.23 - Gastrostomy malfunction Status: Acute Assessment and Plan: To gravity Output is minimal now No intermittent suction needed at this point (4) Aspiration into airway: Code(s): T17.908A - Unspecified foreign body in respiratory tract, part unspecified causing other injury, initial encounter Status: Acute (5) Encephalopathy chronic: Code(s): G93.49 - Other encephalopathy Status: Chronic Assessment and Plan: Unchanged Continue supportive care. (6) Hypertension: Qualifiers: Hypertension type: unspecified Qualified Code(s): I10 - Essential (primary) hypertension Code(s): I10 - Essential (primary) hypertension Status: Chronic Assessment and Plan: Continue to monitor (7) Acute respiratory failure with hypoxia and hypercarbia: Code(s): J96.01 - Acute respiratory failure with hypoxia; J96.02 - Acute respiratory failure with hypercapnia Status: Acute Assessment and Plan: Resolved. 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 Const: General: other (Chronically ill looking.) Nutritional Appearance: thin HENMT: Head: normocephalic Ears: hearing grossly normal bilaterally Face and sinus: normal facial exam Eyes: Pupils: Equal, round and reactive pupils present EOM: EOMs intact bilaterally Neck: Neck: no lymphadenopathy, supple and no JVD Resp: Effort & Inspection: able to speak in complete sentences Auscultation: clear to auscultation bilaterally Cardio: Jugular venous distension: no JVD Rate: regular rate Rhythm: regular rhythm GI: Inspection: other (G-tube and J-tube in place.) GI Palp: Yes Soft to palpation Skin: Wounds: no wounds (G- tube and J-tube in place.) Neuro: General: other (Persistent vegetative stage.) Extrem: General: other (B/L contracture spasticity) Objective Data Vital Signs Vital Signs: Vital Signs - 24 hr 06/20/20 19:40 06/20/20 20:02 06/20/20 20:12 Temperature 97.6 F Pulse Rate 90 90 100 Respiratory Rate 18 18 18 Blood Pressure 102/61 Pulse Oximetry 98 94 06/21/20 05:42 06/21/20 07:50 06/21/20 08:04 Temperature 97.5 F L Pulse Rate 98 91 101 H Respiratory Rate 18 20 20 Blood Pressure 102/60 Pulse Oximetry 97 96 06/21/20 13:16 06/21/20 13:24 06/21/20 14:00 Temperature 96.8 F L Pulse Rate 103 H 99 98 Respiratory Rate 20 20 18 Blood Pressure 93/69 L Pulse Oximetry 90 Intake/Output Intake/Output: Intake & Output 06/18/20 06/19/20 06/20/20 06/21/20 23:59 23:59 23:59 23:59 Intake Total 1200 2200 6505 4744 Output Total 500 1000 1250 1025 Balance 700 1200 5255 3719 Meds/Results Medications: Active Medications Generic Name Dose Route Start Last Admin Trade Name Freq PRN Reason Stop Dose Admin Acetaminophen 650 mg 06/03/20 17:00 06/18/20 17:03 Acetaminophen Elixir 325 Mg/10.15 Ml Udc FEED TUBE 650 mg Q6H PRN Administration Mild Pain (1-3) or Fever Buspirone HCl 10 mg 05/28/20 09:00
[2020-06-22] VITALS (10 sets, daily range): BP systolic 111–132; BP diastolic 60–69; PULSE 79–110; RESP 18–28; TEMP 35.7–36.7; O2SAT 93–100
[2020-06-22 00:48] LABS: Glucose Point of Care 100 (65-105)
[2020-06-22] MEDS: KCL 20 MEQ/0.45% NS 1,000 ML 100 ML IV CONT ×2 (03:18→14:20)
[2020-06-22] MEDS: dilTIAZem HCL 60 MG TABLET FEED TUBE ×4 (05:17→23:55)
[2020-06-22] MEDS: METOCLOPRAMIDE HCL 10 MG TABLET FEED TUBE ×4 (05:17→23:55)
[2020-06-22 05:51] LABS: Glucose Point of Care 118 (65-105)
[2020-06-22] MEDS: FAMOTIDINE 20 MG TABLET FEED TUBE ×2 (08:21→17:11)
[2020-06-22] MEDS: ENOXAPARIN 40 MG/0.4 ML SYRINGE SUB-Q (08:21)
[2020-06-22] MEDS: busPIRone HCL 10 MG TABLET FEED TUBE ×3 (08:21→17:11)
[2020-06-22] MEDS: FOLIC ACID 1 MG TABLET FEED TUBE (08:21)
--- NOTE | 2020-06-22 09:10 | PHAR ---
Notified nurse of need to renew Lovenox 40mg daily
--- NOTE | 2020-06-22 10:19 | PCNFU ---
Nutrition Follow-Up Complete: Inadequate oral intake related to inability to feed orally as evidence by need for mechanical ventilation Goal: Total intake will meet estimated nutrition needs Patient has met goal. No new goal. Pt current nutrition is Jevity 1.2 @70 mL/hour. Last recorded weight is 40.2 kg. Bowel Motility: +BM 06/21 Labs Reviewed: No new labs to report. Meds Noted: buspar, folic acid, zocyn, pepcid, reglan, lovenox Additional Notes: Spoke with nursing today, patient continues to tolerate tube feedings of Jevity 1.2 at 70 mL/hr which is providing 1848 kcals, 85.4 grams of protein, and 1243 ml of water. Banatrol plus continues TID for stool bulking. Patient's weight has been stable. Awaiting placement. Monitoring: Nutrition plan, nutrition tolerance, weight, BMs, labs every T/Thu
[2020-06-22 11:32] LABS: Glucose Point of Care 95 (65-105)
--- NOTE | 2020-06-22 11:55 | PCNSR ---
On 06/22/20, the student,Eugenie Bowers, provided care and [facility]. I have reviewed the student's documentation and agree with the findings.
--- NOTE | 2020-06-22 17:21 | PM.IMPN ---
Progress Note: A&P Assessment and Plan (1) Nutrition disorder: Code(s): E63.9 - Nutritional deficiency, unspecified Status: Acute Assessment and Plan: S/p J-tube placement Tolerating tube feedings. (2) Gastrostomy tube dysfunction: Code(s): K94.23 - Gastrostomy malfunction Status: Acute Assessment and Plan: To low intermittent suction Output has diminished (3) Jejunostomy tube fell out: Code(s): T85.528A - Displacement of other gastrointestinal prosthetic devices, implants and grafts, initial encounter Status: Acute Assessment and Plan: S/p re insertion with Murphy catheter by surgery Continue to monitor (4) Aspiration into airway: Code(s): T17.908A - Unspecified foreign body in respiratory tract, part unspecified causing other injury, initial encounter Status: Acute Assessment and Plan: NPO (5) Encephalopathy chronic: Code(s): G93.49 - Other encephalopathy Status: Chronic Assessment and Plan: Unchanged (6) Acute respiratory failure with hypoxia and hypercarbia: Code(s): J96.01 - Acute respiratory failure with hypoxia; J96.02 - Acute respiratory failure with hypercapnia Status: Acute Assessment and Plan: Resolved. (7) COPD (chronic obstructive pulmonary disease): Code(s): J44.9 - Chronic obstructive pulmonary disease, unspecified Status: Acute Assessment and Plan: Does not appear to be exacerbated. Supportive care Continue to monitor Subjective Date/time seen: 06/22/20 17:21 Non verbal Review of Systems Review of Systems: Narrative: Unable to obtain as patient is nonverbal. Exam Narrative: Exam Narrative: Lying in bed. Const: General: comfortable, no acute distress and other (Persistent vegetative stage.) Nutritional Appearance: cachectic HENMT: Head: normocephalic Face and sinus: normal facial exam Eyes: Pupils: Equal, round and reactive pupils present EOM: EOMs intact bilaterally Neck: Neck: no lymphadenopathy, supple and no JVD Resp: Auscultation: clear to auscultation bilaterally Cardio: Jugular venous distension: no JVD Rate: regular rate Rhythm: regular rhythm GI: Inspection: other (G-tube, J-tube in place.) GI Palp: Yes Firmness to palpation present (GI) and Yes No hepatosplenomegaly present Skin: Wounds: no wounds (J-tube, G-tube in place) Neuro: Cranial nerves: Yes CN's II-XII intact bilaterally and Yes Equal, round and reactive pupils present Cognition (Neuro): abnormal cognition (Persistent vegetative stage.) Extrem: General: other (Contracture spasticity b/l LE) Objective Data Vital Signs Vital Signs: Vital Signs - 24 hr 06/21/20 20:32 06/21/20 21:39 06/21/20 21:51 Temperature 97 F L Pulse Rate 96 96 Respiratory Rate 20 20 Blood Pressure 105/68 Pulse Oximetry 97 98 06/22/20 03:04 06/22/20 05:09 06/22/20 08:57 Temperature 97.7 F Pulse Rate 92 110 H 104 H Respiratory Rate 20 18 20 Blood Pressure 117/69 Pulse Oximetry 98 06/22/20 09:08 06/22/20 14:00 06/22/20 14:23 Temperature 96.2 F L Pulse Rate 104 H 109 H 96 Respiratory Rate 20 20 20 Blood Pressure 111/60 Pulse Oximetry 96 06/22/20 14:32 Temperature Pulse Rate 100 Respiratory Rate 22 H Blood Pressure Pulse Oximetry Intake/Output Intake/Output: Intake & Output 06/19/20 06/20/20 06/21/20 06/22/20 23:59 23:59 23:59 23:59 Intake Total 2200 6505 4794 2150 Output Total 1000 1250 2275 2400 Balance 1200 5255 2519 -250 Meds/Results Medications: Active Medications Generic Name Dose Route Start Last Admin Trade Name Freq PRN Reason Stop Dose Admin Acetaminophen 650 mg 06/03/20 17:00 06/18/20 17:03 Acetaminophen Elixir 325 Mg/10.15 Ml Udc FEED TUBE 650 mg Q6H PRN Administration Mild Pain (1-3) or Fever Buspirone HCl 10 mg 05/28/20 09:00 06/22/20 17:11 Buspirone Hcl 10 Mg Tablet FEED TUBE 10 mg TID JERAMIE
[2020-06-22 17:49] LABS: Glucose Point of Care 115 (65-105)
[2020-06-23] VITALS (8 sets, daily range): BP systolic 118–128; BP diastolic 60–71; PULSE 99–112; RESP 16–28; TEMP 36.7–37.3; O2SAT 96–100
[2020-06-23 00:04] LABS: Glucose Point of Care 112 (65-105)
[2020-06-23] MEDS: KCL 20 MEQ/0.45% NS 1,000 ML 100 ML IV CONT ×2 (01:07→14:00)
[2020-06-23] MEDS: dilTIAZem HCL 60 MG TABLET FEED TUBE ×4 (05:36→23:57)
[2020-06-23] MEDS: METOCLOPRAMIDE HCL 10 MG TABLET FEED TUBE ×4 (05:36→23:56)
[2020-06-23 05:56] LABS: Glucose Point of Care 111 (65-105)
[2020-06-23] MEDS: ENOXAPARIN 40 MG/0.4 ML SYRINGE SUB-Q (09:27)
[2020-06-23] MEDS: FOLIC ACID 1 MG TABLET FEED TUBE (09:28)
[2020-06-23] MEDS: busPIRone HCL 10 MG TABLET FEED TUBE ×3 (09:28→16:53)
[2020-06-23] MEDS: FAMOTIDINE 20 MG TABLET FEED TUBE ×2 (09:28→16:53)
[2020-06-23 13:02] LABS: Glucose Point of Care 99 (65-105)
--- NOTE | 2020-06-23 17:21 | PC.NURSE ---
1110 Clamped gastrostomy tube with 30 mls output in canister.
[2020-06-23 18:18] LABS: Glucose Point of Care 110 (65-105)
--- NOTE | 2020-06-23 18:51 | PM.IMPN ---
Progress Note: A&P Assessment and Plan (1) Jejunostomy tube fell out: Code(s): T85.528A - Displacement of other gastrointestinal prosthetic devices, implants and grafts, initial encounter Status: Acute Assessment and Plan: S/p replacement (2) Nutrition disorder: Code(s): E63.9 - Nutritional deficiency, unspecified Status: Acute Assessment and Plan: Tolerating tube feedings. (3) Gastrostomy tube dysfunction: Code(s): K94.23 - Gastrostomy malfunction Status: Acute Assessment and Plan: Minimal output To gravity No intermittent suction at this time. (4) Aspiration into airway: Code(s): T17.908A - Unspecified foreign body in respiratory tract, part unspecified causing other injury, initial encounter Status: Acute Assessment and Plan: NPO (5) Encephalopathy chronic: Code(s): G93.49 - Other encephalopathy Status: Chronic Assessment and Plan: Supportive care (6) Acute respiratory failure with hypoxia and hypercarbia: Code(s): J96.01 - Acute respiratory failure with hypoxia; J96.02 - Acute respiratory failure with hypercapnia Status: Acute Assessment and Plan: Resolved. (7) Dysphagia: Qualifiers: Dysphagia type: unspecified Qualified Code(s): R13.10 - Dysphagia, unspecified Code(s): R13.10 - Dysphagia, unspecified Status: Chronic Assessment and Plan: NPO Subjective Date/time seen: 06/23/20 18:51 Non verbal Persistent vegetative stage Review of Systems Review of Systems: ROS unobtainable: Yes unobtainable due to medical condition Exam Narrative: Exam Narrative: Lying in bed. Const: General: other (Chronically ill looking.) Nutritional Appearance: thin HENMT: Head: normal to inspection and normocephalic Face and sinus: normal facial exam Eyes: General: appearance normal, both eyes and all related structures Pupils: Equal, round and reactive pupils present EOM: EOMs intact bilaterally Neck: Neck: no lymphadenopathy, supple and no JVD Resp: Auscultation: clear to auscultation bilaterally Cardio: Rate: regular rate Rhythm: regular rhythm GI: Inspection: other (G-tube, J-tube in place.) GI Palp: Yes Soft to palpation and Yes No hepatosplenomegaly present Skin: Wounds: no wounds (G-tube, J-tube in) Neuro: General: other (Persistent vegetative stage.) Extrem: General: no pedal edema and other (Contracture spasticity.) Objective Data Vital Signs Vital Signs: Vital Signs - 24 hr 06/22/20 19:23 06/22/20 19:29 06/22/20 20:08 Temperature 98.1 F Pulse Rate 79 101 H 108 H Respiratory Rate 28 H 28 H 18 Blood Pressure 132/68 Pulse Oximetry 100 93 06/23/20 03:22 06/23/20 03:27 06/23/20 08:00 Temperature Pulse Rate 112 H 110 H 105 H Respiratory Rate 28 H 28 H 24 H Blood Pressure Pulse Oximetry 96 06/23/20 08:46 06/23/20 10:28 06/23/20 10:35 Temperature 98.0 F Pulse Rate 105 H 104 H 105 H Respiratory Rate 18 20 24 H Blood Pressure 128/62 Pulse Oximetry 96 06/23/20 16:00 Temperature 98.2 F Pulse Rate 99 Respiratory Rate 16 Blood Pressure 122/60 Pulse Oximetry 96 Intake/Output Intake/Output: Intake & Output 06/20/20 06/21/20 06/22/20 06/23/20 23:59 23:59 23:59 23:59 Intake Total 6505 4794 2200 3300 Output Total 1250 2275 3750 2680 Balance 5255 2519 -3120 620 Meds/Results Medications: Active Medications Generic Name Dose Route Start Last Admin Trade Name Freq PRN Reason Stop Dose Admin Acetaminophen 650 mg 06/03/20 17:00 06/18/20 17:03 Acetaminophen Elixir 325 Mg/10.15 Ml Udc FEED TUBE 650 mg Q6H PRN Administration Mild Pain (1-3) or Fever Buspirone HCl 10 mg 05/28/20 09:00 06/23/20 16:53 Buspirone Hcl 10 Mg Tablet FEED TUBE 10 mg TID JERAMIE Administration Diltiazem HCl 60 mg 05/28/20 07:33 06/23/20 17:56 Diltiazem Hcl 60 Mg Tablet FEED TUBE 60 mg Q6HR JERAMIE Adm
[2020-06-24] MEDS: KCL 20 MEQ/0.45% NS 1,000 ML 100 ML IV CONT ×3 (00:15→20:43)
[2020-06-24 00:24] LABS: Glucose Point of Care 97 (65-105)
[2020-06-24] MEDS: dilTIAZem HCL 60 MG TABLET FEED TUBE ×4 (06:01→23:07)
[2020-06-24] MEDS: METOCLOPRAMIDE HCL 10 MG TABLET FEED TUBE ×4 (06:01→23:07)
[2020-06-24 06:27] LABS: Glucose Point of Care 97 (65-105)
[2020-06-24 07:41] VITALS: PULSE 108; RESP 18; O2SAT 100
[2020-06-24 08:00] VITALS: BP 126/78; PULSE 102; RESP 18; TEMP 37.2; O2SAT 98
[2020-06-24] MEDS: ENOXAPARIN 40 MG/0.4 ML SYRINGE SUB-Q (09:44)
[2020-06-24] MEDS: FOLIC ACID 1 MG TABLET FEED TUBE (09:45)
[2020-06-24] MEDS: FAMOTIDINE 20 MG TABLET FEED TUBE ×2 (09:45→17:48)
[2020-06-24] MEDS: busPIRone HCL 10 MG TABLET FEED TUBE ×3 (09:45→17:48)
[2020-06-24 12:16] LABS: Glucose Point of Care 109 (65-105)
[2020-06-24 14:00] VITALS: BP 116/69; PULSE 102; RESP 18; TEMP 36.2; O2SAT 100
[2020-06-24 18:18] LABS: Glucose Point of Care 112 (65-105)
[2020-06-24 19:59] VITALS: BP 127/65; PULSE 105; RESP 16; TEMP 36.9; O2SAT 98
[2020-06-24 23:11] LABS: Glucose Point of Care 103 (65-105)
[2020-06-25] MEDS: METOCLOPRAMIDE HCL 10 MG TABLET FEED TUBE ×4 (05:19→23:15)
[2020-06-25] MEDS: dilTIAZem HCL 60 MG TABLET FEED TUBE ×4 (05:19→23:15)
[2020-06-25 05:48] LABS: Glucose Point of Care 114 (65-105)
[2020-06-25] MEDS: KCL 20 MEQ/0.45% NS 1,000 ML 100 ML IV CONT ×2 (06:42→16:45)
[2020-06-25 07:46] VITALS: BP 112/62; PULSE 91; RESP 18; TEMP 36.3; O2SAT 99
[2020-06-25] MEDS: busPIRone HCL 10 MG TABLET FEED TUBE ×3 (09:43→17:39)
[2020-06-25] MEDS: FOLIC ACID 1 MG TABLET FEED TUBE (09:43)
[2020-06-25] MEDS: FAMOTIDINE 20 MG TABLET FEED TUBE ×2 (09:43→17:39)
[2020-06-25] MEDS: ENOXAPARIN 40 MG/0.4 ML SYRINGE SUB-Q (09:43)
[2020-06-25 12:09] LABS: Glucose Point of Care 110 (65-105)
[2020-06-25 14:23] VITALS: BP 106/84; PULSE 103; RESP 18; TEMP 36.4; O2SAT 100
[2020-06-25 17:35] LABS: Glucose Point of Care 113 (65-105)
[2020-06-25 17:37] VITALS: PULSE 97
[2020-06-25 20:40] VITALS: BP 113/66; PULSE 102; RESP 20; TEMP 36.7; O2SAT 99
[2020-06-25 23:33] LABS: Glucose Point of Care 118 (65-105)
[2020-06-26] MEDS: KCL 20 MEQ/0.45% NS 1,000 ML 100 ML IV CONT (02:29)
[2020-06-26] MEDS: dilTIAZem HCL 60 MG TABLET FEED TUBE ×2 (05:01→13:58)
[2020-06-26] MEDS: METOCLOPRAMIDE HCL 10 MG TABLET FEED TUBE ×2 (05:01→13:58)
[2020-06-26 05:07] LABS: Glucose Point of Care 119 (65-105)
[2020-06-26 05:18] VITALS: BP 107/63; PULSE 103; RESP 24; TEMP 36.2; O2SAT 100
[2020-06-26 08:00] VITALS: BP 131/85; PULSE 108; RESP 32; TEMP 36.1; O2SAT 97
[2020-06-26] MEDS: busPIRone HCL 10 MG TABLET FEED TUBE ×2 (09:09→13:58)
[2020-06-26] MEDS: ENOXAPARIN 40 MG/0.4 ML SYRINGE SUB-Q (09:09)
[2020-06-26] MEDS: FOLIC ACID 1 MG TABLET FEED TUBE (09:09)
[2020-06-26] MEDS: FAMOTIDINE 20 MG TABLET FEED TUBE (09:09)
[2020-06-26 11:45] LABS: Glucose Point of Care 111 (65-105)
--- NOTE | 2020-06-26 13:03 | PCNFU ---
Nutrition Follow-Up Complete: Inadequate oral intake related to inability to feed orally as evidence by need for mechanical ventilation Goal: Total intake will meet estimated nutrition needs Patient has met current goal. No new goal. Pt current nutrition is Jevity 1.2 at 70 ml/hr Last recorded weight is 41.2 kg, up from 38.6 kg 06/25. Bowel Motility:+BM noted 06/25, Banatrol Plus TID for stool bulking. Labs Reviewed:no new labs to report. Meds Noted:Reglan, Lovenox. Additional Notes: Patient seen today for tube feeding follow up. Nursing reports, output through G tube has diminished. Current tube feedings of Jevity 1.2 at 70 ml/hr are providing patient with 1848 kcals and 85 gms protein, meeting 100% of patients caloric needs. Plans for discharge soon to SNF. Monitoring: Nutrition plan, nutrition tolerance, weight, BMs, labs every Thursday/Thursday.
[2020-06-26 14:00] VITALS: BP 112/57; PULSE 102; RESP 20; TEMP 36.6; O2SAT 99
--- NOTE | 2020-06-26 14:08 | PM.DS ---
DS: Admitting Diagnosis Admitting Diagnosis Admitting Diagnosis: Hypoxia DS: Discharge Diagnosis Discharge Diagnosis (1) Jejunostomy tube fell out: Code(s): T85.528A - Displacement of other gastrointestinal prosthetic devices, implants and grafts, initial encounter Status: Acute Assessment and Plan: S/p replacement (2) Nutrition disorder: Code(s): E63.9 - Nutritional deficiency, unspecified Status: Acute Assessment and Plan: Tolerating tube feedings. (3) Gastrostomy tube dysfunction: Code(s): K94.23 - Gastrostomy malfunction Status: Acute Assessment and Plan: Minimal output (4) Aspiration into airway: Code(s): T17.908A - Unspecified foreign body in respiratory tract, part unspecified causing other injury, initial encounter Status: Acute Assessment and Plan: NPO (5) Encephalopathy chronic: Code(s): G93.49 - Other encephalopathy Status: Chronic Assessment and Plan: Supportive care (6) Acute respiratory failure with hypoxia and hypercarbia: Code(s): J96.01 - Acute respiratory failure with hypoxia; J96.02 - Acute respiratory failure with hypercapnia Status: Acute Assessment and Plan: Resolved. (7) Dysphagia: Qualifiers: Dysphagia type: unspecified Qualified Code(s): R13.10 - Dysphagia, unspecified Code(s): R13.10 - Dysphagia, unspecified Status: Chronic Assessment and Plan: NPO DS: Summary Hospital Course Hospital Course: 60year old male with HTN, hydrocephalus and dementia who returned due to acute respiratory failure from recurrent aspiration. Patient extubated 05/31. He is alert. Suctioning 05/27- found tube feedings in his ETT so tube feeding were stopped. J tube placed 05/29 and tolerating feedings now. G tube fell out 06/10 less gastric secretions and G tube to drainage, episode of hypoxia 06/01 and 1/3 pm and probable unable to handle his own secretions with mucous plugging, responded to suctioning 06/16 fever again and new infiltrate on cxr back on antibiotics, zosyn and vanc HAP but probable aspiration continue to treat. 06/26 seen by me stable for transfer back to his longterm. Time Spent with Patient Time attestation: Total time spent providing and/or coordinating discharge services: 40 minutes on day of dischrage Exam Const: General: comfortable, no acute distress, alert, awake, acute distress, ill appearing and other (Chronically ill looking.) Nutritional Appearance: cachectic, thin and underweight Orientation/consciousness: oriented to person and Other orientation findings (Persistent vegetative stage.) Limitations: altered mental status and physical limitations Other: Encephalopathy. Resp: Effort & Inspection: normal respiratory effort Auscultation: clear to auscultation bilaterally Cardio: Jugular venous distension: no JVD Rate: regular rate GI: Inspection: normal to inspection and other (G-tube, J-tube in place.) Auscultation: Hypoactive bowel sounds present Skin: General skin exam: normal color, no rashes or lesions noted and pallor Wounds: no wounds (G-tube, J-tube in) Neuro: General: oriented to person and other (Persistent vegetative stage.) Cranial nerves: Yes CN's II-XII intact bilaterally and Yes Equal, round and reactive pupils present Cognition (Neuro): normal cognition (Chronic encephalopathy.) and abnormal cognition (Persistent vegetative stage.) Speech: dysarthria Motor exam (neuro): Other motor observations present (B/L LE contracture spasticity.) Extrem: General: no pedal edema and other (Contracture spasticity.) DS: Data Data Completed and Pending Labs on day of discharge: Labs from last 24 hours 06/26/20 06/26/20 06/26/20 11:34 09:04 05:00 POC Capillary Glucose 111 H 119 H SARS-CoV-2 RNA (RT-PCR) Pending 06/25/20 06/25/20 23:25 17:32 POC Capillary Glucose 118 H 113 H SARS-CoV-2 RNA (RT-PCR)
--- NOTE | 2020-06-26 14:28 | PC.NURSE ---
Report called to Val at [facility]. No further questions.
[2020-06-26 18:13] LABS: SARS-CoV-2 RNA PCR Negative
== END 2020-06-26 15:30 | DRG 870 ==
LOC: ANHED 03:12 → ANHICU 06:36 → ANH3MED 06-07 12:38 → ANHICU 06-27 09:41 → ANH3MED 06-27 09:41 → ANHICU 06-27 09:41
PROVIDERS: Family Medicine; Internal Medicine; Nurse Practitioner; Surgery; Admitting Provider Family Medicine; Emergency Provider Emergency Medicine; Visit Provider Internal Medicine
PROC: (CPT 49441; principal; 2020-05-29 12:00)
DX: A41.9 Sepsis, unspecified organism (principal); R65.21 Severe sepsis with septic shock; J96.02 Acute respiratory failure with hypercapnia; J96.01 Acute respiratory failure with hypoxia; J69.0 Pneumonitis due to inhalation of food and vomit; G93.49 Other encephalopathy; E87.2 Acidosis; G91.9 Hydrocephalus, unspecified; R64 Cachexia; Z68.1 Body mass index [BMI] 19.9 or less, adult; Z20.822 Contact with and (suspected) exposure to COVID-19; Z16.21 Resistance to vancomycin; K94.23 Gastrostomy malfunction; I10 Essential (primary) hypertension; F41.9 Anxiety disorder, unspecified; J44.9 Chronic obstructive pulmonary disease, unspecified; R13.10 Dysphagia, unspecified; D47.3 Essential (hemorrhagic) thrombocythemia; E87.5 Hyperkalemia; G93.89 Other specified disorders of brain; G90.9 Disorder of the autonomic nervous system, unspecified; B95.2 Enterococcus as the cause of diseases classified elsewhere; T17.900A Unspecified foreign body in respiratory tract, part unspecified causing asphyxiation, initial encounter; X58.XXXA Exposure to other specified factors, initial encounter; Y93.9 Activity, unspecified; Y92.230 Patient room in hospital as the place of occurrence of the external cause; E83.42 Hypomagnesemia; F03.90 Unspecified dementia, unspecified severity, without behavioral disturbance, psychotic disturbance, mood disturbance, and anxiety; R82.71 Bacteriuria; Z22.39 Carrier of other specified bacterial diseases; Y83.3 Surgical operation with formation of external stoma as the cause of abnormal reaction of the patient, or of later complication, without mention of misadventure at the time of the procedure; Y73.1 Therapeutic (nonsurgical) and rehabilitative gastroenterology and urology devices associated with adverse incidents; Y92.129 Unspecified place in nursing home as the place of occurrence of the external cause; E63.9 Nutritional deficiency, unspecified
CPT/HCPCS: 31500; 36415; 36430; 36600; 49465; 70450; 71045; 80048; 80053; 80202; 81001; 82375; 82805; 83050; 83605; 83615; 83735; 83880; 84484; 85014; 85018; 85025; 85027; 85610; 85730; 86140; 86850; 86900; 86901; 86923; 87040; 87070; 87077; 87086; 87088; 87186; 87205; 87635; 87804; 93005; 94003; 94640; 96365; 96367; 99291; A9270; C1751; C9113; C9803; J0131; J0295; J0692; J1650; J1940; J2020; J2270; J2405; J2543; J3010; J3370; J3475; J3480; J7030; J7040; J7042; J7050; J7070; P9016; U0003; U0005

== ENCOUNTER 2020-07-20 05:56 | Inpatient (IN) | payer MEDICARE, MEDICAID, SELFPAY ==
[2020-07-20] VITALS (19 sets, daily range): BP systolic 101–128; BP diastolic 55–78; PULSE 108–163; RESP 25–44; TEMP 36.4–37.7; O2SAT 90–99; BMI 18.4; BMI 18.7
--- NOTE | ~2020-07-20 | XR_ITS ---
EXAMINATION: XR chest 1V portable INDICATION: Pneumonia, respiratory failure TECHNIQUE: Portable AP chest at 0556 hours COMPARISON: 07/21/2020 FINDINGS: A right upper extremity PICC ends with its tip at the superior cavoatrial junction. Patchy bilateral airspace opacities persist without significant change. There is no pleural effusion or pneu mothorax. The cardiomediastinal silhouette is normal. IMPRESSION: 1. Stable diffuse lung disease, consistent with multifocal pneumonia. Reviewed, dictated and finalized at location A. HOUSE DISTRIBUTION ASSOCIATE
--- NOTE | ~2020-07-20 | XR_ITS ---
EXAMINATION: XR chest 1V portable DATE: 07/23/2020 05:45 INDICATION: Pneumonia. Acute respiratory failure. TECHNIQUE: frontal view of the chest was obtained. COMPARISON: Chest radiograph dated 07/22/2020 FINDINGS: Patient is rotated towards the right. Right upper extremity peripherally inserted central venous cath eter (PICC) tip at the caudal superior vena cava. No significant interval change in the diffuse bilateral reticulonodular pattern consistent with pneum onia. No pleural effusion or pneumothorax. The cardiomediastinal silhouette is within normal limits a ccounting for rightward rotation. A few bilateral old rib fractures. IMPRESSION: 1. Stable diffuse bilateral lung disease consistent with multifocal pneumonia. Reviewed, dictated and finalized at location A. TING HOUSEKEEPER
--- NOTE | ~2020-07-20 | XR_ITS ---
EXAMINATION: XR chest 1V portable EXAM DATE: 07/25/2020 08:33 INDICATION: Aspiration. TECHNIQUE: Portable AP frontal chest x-ray was obtained. Comparison is made to prior examination from earlier same date. FINDINGS: There is a right-sided PICC line, tip overlying expected position. Moderate amount of patch y bilateral airspace disease likely acute process such as pneumonia. Edema would typically have more symmetric appearance. No pneumothorax or pleural effusion. Mild hyperinflation. There are no osseous abnormalities identified. Accounting for differences in technique, there is no significant interval c hange. IMPRESSION: Moderate patchy bilateral acute airspace disease. Clinical correlation. Reviewed, dictated and finalized at location B. T COORDINATOR IMPRESSION: Moderate patchy bilateral acute airspace disease. Clinical correla tion.
--- NOTE | ~2020-07-20 | XR_ITS ---
EXAMINATION: XR chest 1V portable INDICATION: Shortness of breath TECHNIQUE: Portable AP chest at 0507 hours COMPARISON: 07/20/2020 FINDINGS: Diffuse airspace opacities persist with interval worsening in the upper lung zones and left midlung zone. There is no pleural effusion or pneumothorax. The cardiomediastinal silhouette is norm al. A right upper extremity PICC ends with its tip at the superior cavoatrial junction. IMPRESSION: 1. Diffuse lung disease with worsening airspace opacities in the upper lung zones and left midlung zo ne, consistent with multifocal pneumonia. Reviewed, dictated and finalized at location A. CTOR OF STRATEGIC COMMUNICATIONS IMPRESSION: 1. Diffuse lung disease with worsening airspace opacities in the upper lung zon es and left midlung zone, consistent with multifocal pneumonia.
--- NOTE | ~2020-07-20 | XR_ITS ---
EXAMINATION: XR chest 1V portable DATE: 07/25/2020 05:41 INDICATION: Pneumonia. Acute respiratory failure. TECHNIQUE: frontal view of the chest was obtained. COMPARISON: Chest radiograph dated 07/24/2020 FINDINGS: Right upper extremity peripherally inserted central venous catheter (PICC) tip at the caudal superio r vena cava. Interval decrease in the previously more prominent diffuse interstitial pattern consistent with impro ving pulmonary edema. Also decreased or bilateral patchy airspace opacities with resolution the right lower lung zone and persistent opacities in the left upper and lower lung zones which could represen t residual pulmonary edema, atelectasis or pneumonia. No pneumothorax or pleural effusion. The cardio mediastinal silhouette is normal. A few old bilateral rib fractures. IMPRESSION: 1. Interval decrease in bilateral interstitial and patchy airspace opacities which could represent pu lmonary edema, multifocal pneumonia, atelectasis or some combination thereof. Reviewed, dictated and finalized at location A. NO FLOOR RUNNER IMPRESSION: 1. Interval decrease in bilateral interstitial and patchy airspace opacities wh ich could represent pulmonary edema, multifocal pneumonia, atelectasis or some combination thereof.
--- NOTE | ~2020-07-20 | XR_ITS ---
EXAMINATION: XR chest 1V portable INDICATION: Shortness of breath TECHNIQUE: Portable AP chest at 0652 hours COMPARISON: 06/16/2020 FINDINGS: There are patchy opacities throughout all lung zones, worst in the left upper lobe. There i s no pleural effusion or pneumothorax. The cardiomediastinal silhouette is normal for technique. A ri t upper extremity PICC has been inserted which ends with its tip in the distal superior vena cava. IMPRESSION: 1. Patchy bilateral airspace opacities, worst in the left upper lobe, consistent with pneumonia and/o r atelectasis. 2. Right upper extremity PICC inserted ending with its tip in the distal superior vena cava. Reviewed, dictated and finalized at location A. UCTION TECHNOLOGIST IMPRESSION: 1. Patchy bilateral airspace opacities, worst in the left upper lobe, consisten t with pneumonia and/or atelectasis. 2. Right upper extremity PICC inserted ending with its tip in the distal superi or vena cava.
--- NOTE | ~2020-07-20 | XR_ITS ---
EXAMINATION: XR chest 1V portable DATE: 07/24/2020 05:49 INDICATION: Pneumonia. Acute respiratory failure. TECHNIQUE: frontal view of the chest was obtained. COMPARISON: Chest radiograph dated 07/23/2020 FINDINGS: Right upper extremity peripherally inserted central venous catheter (PICC) tip at the mid superior v bony cava. Persistent diffuse reticular pattern with bronchial wall thickening throughout both lungs and a few s cattered more focal airspace opacities with some worsening in the left lower lung zone, some improvem ent in the right upper lung zone no definitive change in the left suprahilar region accounting for di fferences in patient positioning. No pneumothorax. Small left pleural effusion. Heart size is normal. A few old bilateral rib fractures. IMPRESSION: 1. Diffuse bilateral lung disease with worsening of opacities in the left lower lung zone and some im provement in the right upper lung zone. Differential would include multifocal pneumonia, pulmonary ed beverley, atelectasis or some combination thereof. 2. New small left pleural effusion. Reviewed, dictated and finalized at location A. IAL DIET COOK IMPRESSION: 1. Diffuse bilateral lung disease with worsening of opacities in the left lower lung zone and some improvement in the right upper lung zone. Differential woul d include multifocal pneumonia, pulmonary edema, atelectasis or some combinatio n thereof. 2. New small left pleural effusion.
--- NOTE | ~2020-07-20 | CT_ITS ---
EXAMINATION: CTA chest PE abdomen pel DATE: 07/20/2020 07:12 INDICATION: Shortness of breath, abdominal pain TECHNIQUE: Computed tomography angiography (CTA) of the chest was performed with 100 mL Omnipaque-350 intravenous contrast timed to evaluate the pulmonary arteries. Subsequent postcontrast images of the abdomen and pelvis are obtained. Coronal maximum intensity projection 3D-reconstructions were create d by the technologist. The dose-length product (DLP) was 1115.20 mGy-cm. Automated exposure control a nd iterative reconstruction technique were employed. COMPARISON: 05/09/2020 FINDINGS: CTA CHEST: The pulmonary arteries are moderately well-opacified. Respiratory motion artifact limits t he examination as well. No pulmonary embolism is identified. There are widespread tree-in-bud opaciti es and centrilobular nodules throughout all lung zones. More focal consolidation is seen in the left lung apex. There is no pleural effusion or pneumothorax. The heart size is normal. There is mild medi astinal and bilateral hilar lymphadenopathy. Gynecomastia is noted. There is mild thoracic spondylosi s. ABDOMEN/PELVIS CT: An 11 mm cyst is present in the liver near the gallbladder fossa. The spleen, panc reas, gallbladder, and adrenal glands are normal. The left kidney is unremarkable. There is a focal a dylan of low attenuation in the anterior aspect of the right mid kidney. There is calcified atheroscler osis of the aorta and many of the other arteries. No pathologically enlarged abdominal or pelvic lymp h nodes are identified. There is no free intraperitoneal gas or evidence of bowel obstruction. A mode rate volume of colonic stool is present. The bladder is decompressed by a Murphy catheter. There is mi ld lumbar spondylosis. IMPRESSION: 1. No pulmonary embolism identified, sensitivity limited by respiratory motion artifact. 2. Widespread tree-in-bud opacities and centrilobular nodules with more focal consolidation in the le ft upper lobe, consistent with multifocal pneumonia. 3. Focal area of low attenuation in the right mid kidney which could reflect urinary tract infection/ pyelonephritis. Reviewed, dictated and finalized at location A. R DEVELOPER IMPRESSION: 1. No pulmonary embolism identified, sensitivity limited by respiratory motion artifact. 2. Widespread tree-in-bud opacities and centrilobular nodules with more focal c onsolidation in the left upper lobe, consistent with multifocal pneumonia. 3. Focal area of low attenuation in the right mid kidney which could reflect ur inary tract infection/pyelonephritis.
--- NOTE | ~2020-07-20 | XR_ITS ---
EXAMINATION: XR chest 1V portable DATE: 07/24/2020 21:20 INDICATION: Aspiration. TECHNIQUE: A single frontal view of the chest was obtained. COMPARISON: Chest single view at 5:33 AM, chest CT 07/20/2020 FINDINGS: There are patchy airspace opacities throughout the lungs bilaterally. There is a small left pleural effusion. No pneumothorax. The heart size is normal. A right upper extremity peripherally in serted central venous catheter (PICC) is seen with tip at the superior cavoatrial junction. IMPRESSION: 1. Diffuse lung disease with improvement at left lung base, consistent with pneumonia. 2. Small left pleural effusion. Reviewed, dictated and finalized at location A. WARE MANAGER IMPRESSION: 1. Diffuse lung disease with improvement at left lung base, consistent with pne umonia. 2. Small left pleural effusion.
--- NOTE | ~2020-07-20 | XR_ITS ---
EXAMINATION: XR abdomen/kub 1V EXAM DATE: 07/25/2020 08:33 INDICATION: Aspiration. TECHNIQUE: Frontal projection(s) of the abdomen for interpretation. There is no prior study for umer tomlin. FINDINGS: Gastrostomy tube. There is no organomegaly. There is a nonobstructive bowel gas pattern. N o acute osseous findings. IMPRESSION: Unremarkable XR abdomen/kub 1V exam. Reviewed, dictated and finalized at location B. R [employer] LEADER
[2020-07-20] MEDS: SODIUM CHLORIDE 0.9% IV 1,000 ML 999 ML IV CONT ×2 (06:00→06:33)
[2020-07-20] MEDS: ADENOSINE IV SOLN 6 MG/2 ML VIAL 12 MG IV PUSH ×2 (06:01→06:11)
--- NOTE | 2020-07-20 06:04 | ECG_ITS ---
Measurements Intervals [place] Rate: 127 P: 60 [place]: 143 QRS: -43 QRSD: 89 T: -19 QT: 273 QTc: 397 Interpretive Statements SINUS TACHYCARDIA LEFT AXIS DEVIATION ANTEROSEPTAL INFARCT, AGE INDETERMINATE BORDERLINE T WAVE ABNORMALITY- ANTEROLAT/INF LEADS ABNORMAL ECG Electronically Signed On 07-20-2020 9:00:38 [employer] by Leon Balderas D.O.
[2020-07-20] MEDS: ADENOSINE IV SOLN 6 MG/2 ML VIAL 12 MG (06:11)
--- NOTE | 2020-07-20 06:16 | ED.GENADULT ---
HPI - General Adult General Chief complaint: Chest Pain <Clint Hernandez MD - Last Filed: 07/20/20 07:18> Stated complaint: sob, 15l nrb mask, svt on monitor <Clint Hernandez MD - Last Filed: 07/20/20 07:18> Time Seen by Provider: 07/20/20 06:04 <Clint Hernandez MD - Last Filed: 07/20/20 07:18> Limitations: altered mental status and clinical condition <Clint Hernandez MD - Last Filed: 07/20/20 07:18> History of Present Illness HPI narrative: Patient is a 60-year-old gentleman who presents the emergency department with chief complaint of shortness of breath. Patient was sent from a local nursing facility after he was found in his room covered in vomit and was short of breath. The facility reported that he had crackles and was saturating in the 70s whenever they called EMS. The patient on 4 L came up into the 80s. Patient has been receiving IV antibiotics for osteomyelitis of his foot and has a PICC line in place. History is limited due to patient's mental status. <Clint Hernandez MD - Last Filed: 07/20/20 07:18> Related Data Home medications: Home Medications Medication Instructions Recorded Confirmed ipratropium-albuterol 3 ml INHALATION QID PRN 05/09/20 05/24/20 acetaminophen 650 mg PO Q6H PRN 05/24/20 05/24/20 fluconazole [Diflucan] 200 mg FEEDING TUBE DAILY 05/24/20 05/24/20 <Clint Hernandez MD - Last Filed: 07/20/20 07:18> Allergies/adverse reactions: Allergies Allergy/AdvReac Type Severity Reaction Status Date / Time No Known Allergies Allergy Verified 05/09/20 08:39 <Clint Hernandez MD - Last Filed: 07/20/20 07:18> Review of Systems Review of Systems: ROS unobtainable: Yes unobtainable due to mental status <Clint Hernandez MD - Last Filed: 07/20/20 07:18> [facility] Past Medical History Medical History: Medical History Anemia Anxiety COPD (chronic obstructive pulmonary disease) Disorder of autonomic nervous system Dysphagia With G-Tube placement Encephalopathy chronic History of gastrostomy tube placement Hydrocephalus Hypertension Paroxysmal tachycardia <Clint Hernandez MD - Last Filed: 07/20/20 07:18> Surgical History Surgical History: Surgical History History of tracheostomy x2 <Clint Hernandez MD - Last Filed: 07/20/20 07:18> Family History Family History: Family History Mother Endometrial cancer Father Hypertension Sibling Seizure <Clint Hernandez MD - Last Filed: 07/20/20 07:18> Social History Social History: Social History Social History: No hx of tobacco use but heavy alcohol use per sister. She was unsure if patient has hx of drug use. Patient is a group home resident. He is full code Smoking status: Unknown if ever smoked Alcohol intake: former Substance use: never Gender identity (if verbalized by the patient): Male Spiritual care concerns: No <Clint Hernandez MD - Last Filed: 07/20/20 07:18> Exam Narrative: Exam Narrative: GENERAL: Ill-appearing, thin and cachectic, and in no acute distress. HEAD: Normocephalic, atraumatic. EYES: PERRLA and EOMI. ENT: Nares clear, no rhinorrhea or epistaxis. Mucous membranes moist. NECK: Supple. CHEST: Crackles and rhonchi bilaterally. No respiratory distress. HEART: Tachycardic. No murmur heard. Normal peripheral pulses. ABDOMEN: Soft, nontender, nondistended, normal active bowel sounds. There is a PEG tube in place EXTREMITIES: Normal range of motion. No edema. Lower extremities are contracted there is a PICC line present of the right upper extremity SKIN: Warm, dry, no rash. NEURO: No focal deficits
[2020-07-20 06:22] LABS: Basophils Percent Auto 0.2 % (0.2-1.2); Eosinophils Absolute Auto 0.2 K/mm3 (0-0.3); Eosinophils Percent Auto 1.6 % (0-4.4); Hematocrit 34.4 % (42.0-52.0); Hemoglobin 10.1 g/dL (14.0-18.0); Immature Granulocyte Absolute 0.05 K/mm3 (0.00-0.031); Immature Granulocyte Percent A 0.4 % (0-0.5); Lymphocytes Absolute Auto 0.62 K/mm3 (0.9-3.2); Lymphocytes Percent Auto 4.9 % (18.3-44.2); Mean Corpuscular HGB Conc 29.4 g/dl (32-36); Mean Corpuscular Hemoglobin 22.9 pg (26-34); Mean Corpuscular Volume 77.8 fl (80-100); Mean Platelet Volume 10.2 fl (7.4-10.4); Monocytes Absolute Auto 0.8 K/mm3 (0.1-0.6); Monocytes Percent Auto 6.6 % (2.6-8.5); Neutrophils Percent Auto 86.3 % (45.5-73.1); Platelet Count Result 492 k/mm3 (150-375); Red Blood Count 4.42 M/mm3 (4.6-6.20); Red Cell Distribution Width 18.5 % (11.5-14.5); White Blood Count 12.8 K/mm3 (4.5-10.0)
[2020-07-20 06:32] LABS: INR 1.1
[2020-07-20 06:33] LABS: Alveolar/Arterial O2 Gradient 488.1 mmHg; Base Excess ABG -2.3 mEq/l (+/-2.0); Device NON-REBREATHER MASK; Fractional Inspired Oxygen 100 %; HCO3 ABG 21.8 mEq/l (22.0-26.0); Modified Allen's Test Pass; Oxygen Saturation ABG 99.3 % (95.0-100.0); Oxyhemoglobin 97.9 % THb (90.0-100.0); PCO2 ABG 34.5 mmHg (35.0-45.0); PO2 ABG 190.4 mmHg (80.0-100.0); Site Drawn RIGHT RADIAL; Total Hemoglobin 9.1 g/dL (12.0-18.0); pH ABG 7.419 (7.350-7.450)
[2020-07-20 06:33] LABS: Partial Thromboplastin Time 36.6 SECONDS (22.3-36.8)
[2020-07-20 06:35] LABS: Alanine Aminotransferase 22 U/L (4-50); Albumin Level 3.4 g/dL (3.5-5.1); Alkaline Phosphatase 124 U/L (38-126); Anion Gap 10 mmol/L (8-16); Aspartate Amino Transferase 37 U/L (17-59); Bilirubin,Total 0.5 mg/dL (0.2-1.3); Blood Urea Nitrogen 19 mg/dL (9-20); Calcium 8.5 mg/dL (8.4-10.2); Carbon Dioxide 27 mmol/L (22-30); Chloride 101 mmol/L (98-107); Estimated CRCL calculation 79 ml/min; Estimated Glomerular Filt Rate > 60; Glucose 99 mg/dL (75-110); Magnesium 1.8 mg/dL (1.6-2.3); Potassium 5.5 mmol/L (3.4-5.0); Sodium 138 mmol/L (137-145)
[2020-07-20 06:46] LABS: Add Urine Microscopic? YES; Appearance Urine Cloudy (Clear); Bacteria Urine Trace /hpf; Bilirubin Urine Negative (Negative); Color Urine Yellow (Yellow); Glucose Urine UA Negative (Negative); Ketones Urine Negative (Negative); Leukocyte Esterase Ur 3+ LEU/UL (Negative); Mucus Urine Few /lpf; Nitrate Urine Negative (Negative); Protein Urine 1+ mg/dL (Negative); Specific Grav Ur 1.018 (1.001-1.035); Squamous Epithelial Cell Urine Rare /hpf (Few); Urobilinogen Urine Negative mg/dL (<2.0); WBC Urine >75 /hpf
[2020-07-20 06:48] LABS: Blood Urine Negative (Negative)
[2020-07-20 06:50] LABS: NT Pro B Type Natriuretic Pept 214 PG/ML (5-100); Troponin I < 0.012 ng/mL (0.000-0.034)
--- NOTE | 2020-07-20 08:01 | PC.NURSE ---
Upon return of xray pts right hand IV has infiltrated.
--- NOTE | 2020-07-20 08:41 | PC.NURSE ---
Per pharmacy Cardizem and cefepime and Levaquin are not compatible
--- NOTE | 2020-07-20 08:42 | PM.IMHP ---
H&P: HPI History of Present Illness Date/Time: 07/20/20 08:42 Chief Complaint: Respiratory distress Narrative: King Sullivan is a 60yo male with chronic encephalopathy and HTN here for acute respiratory distress. [facility] resides [facility] and has hx of respiratory failure with trach and chronic dysphagia still with G-tube in place. Patient hospitalized here 05/09-05/22/20 for PNA, septic shock and acute respiratory failure from aspiration. CTA chest did show innumerable diffuse small centrilobular nodules and small regions of patchy consolidation consistent with widespread pneumonia. Patient was intubated but able to be successfully extubated and weaned to room air. He returned to the hospital on 05/24 for similar symptoms felt related to aspiration. During his hospital course, his G-Tube was changed to a J-Tube. The G-Tube remains in place for decompression (this actually fell out around 06/11/20 and was exchanged with Murphy which is present today). He was hospitalized through 06/26/20. Patient this morning was found by nursing staff this morning to be short of breath and cover with vomitus. Was found to be hypoxic with saturation in the 70s. EMS was called. With 4 L, the patient improved to 80% but ultimately needed non-rebreather. Also patient was found have a narrow complex tachycardia rate 158 and was given adenosine 6mg by EMS. A 2nd dose of 12mg was given and heart rate slowed to show sinus tachycardia but no atrial flutter or atrial fibrillation. Patient was started on diltiazem drip in the emergency room. He did have widespread tree-in-bud opacities and central lobular nodules with more focal consolidation left upper lobe consistent with pneumonia. He also has some findings in the right mid kidney which could reflect pyelonephritis. On broad-spectrum IV antibiotics and admitted to the ICU for further care. Patient is alert but unable to provide history. Review of Systems Review of Systems: ROS unobtainable: Yes unobtainable due to mental status PMFSH Past Medical History Medical History Anemia Anxiety COPD (chronic obstructive pulmonary disease) Disorder of autonomic nervous system Dysphagia With G-Tube placement Encephalopathy chronic History of gastrostomy tube placement Hydrocephalus Hypertension Paroxysmal tachycardia Surgical History Surgical History History of tracheostomy x2 Family History Family History Mother Endometrial cancer Father Hypertension Sibling Seizure Social History Social History Social History: No hx of tobacco use but heavy alcohol use per sister. She was unsure if patient has hx of drug use. [facility] is a [facility] resident. He is full code Smoking status: Unknown if ever smoked Alcohol intake: unknown Substance use: unknown Gender identity (if verbalized by the patient): Male Spiritual care concerns: No Meds Home Medications and Allergies Home Medications Medication Instructions Recorded Confirmed Type ipratropium-albuterol 3 ml INHALATION QID PRN 05/09/20 07/20/20 History buspirone 10 mg FEEDING TUBE TID #90 tablet 05/22/20 07/20/20 Rx folic acid 1 mg FEEDING TUBE DAILY #30 tablet 05/22/20 07/20/20 Rx metoclopramide HCl 5 mg FEEDING TUBE ACHS #120 tablet 05/22/20 07/20/20 Rx acetaminophen 650 mg PO Q6H PRN 05/24/20 07/20/20 History diltiazem HCl 60 mg FEEDING TUBE Q6HR #30 tablet 06/07/20 07/20/20 Rx dornase nikky [Pulmozyme] 2.5 mg INHALATION Q12HRT 30 Days 06/07/20 07/20/20 Rx #150 ml famotidine 20 mg FEEDING TUBE BID 30 Days #60 06/07/20 07/20/20 Rx tablet insulin aspart U-100 [Novolog 3 - 6 units SUBCUT Q6H 30 Days ml 06/07/20 07/20/20 Rx U-100 Insulin aspart] collagenase clostridium histo. 1 applic TOPICAL D
--- NOTE | 2020-07-20 09:16 | PC.NURSE ---
Called to give report on pt. Was told that nurse was in another room and will call me back.
[2020-07-20 09:36] LABS: Lactic Acid Reflex 1.6 mmol/L (0.7-2.1)
--- NOTE | 2020-07-20 10:18 | PC.NURSE ---
Pt arrived to unit with PICC line in place, upon assessment PICC line able to flush with no blood return. Phyllis Ragland, YVETTE [place]- notified. RN was informed that Phyllis is aware of PICC line issues and she informed ED that PICC line will need both ports cathflo. This process will be done by P[employer] AND SHOVEL MAN after ABX are complete
--- NOTE | 2020-07-20 11:02 | WPDCNINT ---
Assessment and Plan Assessment and plan (1) Acute hypoxemic respiratory failure: Code(s): J96.01 - Acute respiratory failure with hypoxia Status: Acute Assessment and Plan: Acute respiratory failure likely related to emesis and aspiration. Patient currently supplemental oxygen, tachypneic. -chest x-ray and CT scan showed multifocal pneumonia -continue Unasyn, Levaquin vancomycin -will start Xopenex and Pulmicort nebs (2) Pneumonia: Qualifiers: Laterality: unspecified laterality Lung location: unspecified part of lung Pneumonia type: due to unspecified organism Qualified Code(s): J18.9 - Pneumonia, unspecified organism Code(s): J18.9 - Pneumonia, unspecified organism Status: Acute Assessment and Plan: 07/20/2020 Chest x-ray shows evidence of left upper lobe infiltrate. CT chest/abdomen/pelvis did not reveal any pulmonary embolism. Widespread tree-in-bud opacities and centrilobular nodules with more focal consolidation in the left upper lobe, consistent with multifocal pneumonia. Focal area of low attenuation in the right mid kidney which could reflect urinary tract infection/pyelonephritis. - continue abx as above - ID to follow (3) SVT (supraventricular tachycardia): Code(s): I47.1 - Supraventricular tachycardia Status: Acute Assessment and Plan: Patient has history of paroxysmal tachycardia, went into SVT and started Cardizem infusion - Pt was given adenosine 6 mg by EMS and then Adenosine 12 mg x2 by ER physician. - troponin < 0.012 x1 - continue to monitor (4) Severe sepsis: Code(s): A41.9 - Sepsis, unspecified organism; R65.20 - Severe sepsis without septic shock Status: Acute Assessment and Plan: Pt with tachypnea, hypoxia, pneumonia - hemodynamically stable - pt has picc line in place - lactic is normal - continue abx - cultures obtained and pending (5) Nausea & vomiting: Qualifiers: Vomiting Intractability: non-intractable Vomiting type: unspecified Qualified Code(s): R11.2 - Nausea with vomiting, unspecified Code(s): R11.2 - Nausea with vomiting, unspecified Status: Acute Assessment and Plan: no more emesis Pt has Jejunostomy tube in place for tube feeds Also PEG tube to suction Pt has a hx of aspiration pneumonia (6) COPD (chronic obstructive pulmonary disease): Code(s): J44.9 - Chronic obstructive pulmonary disease, unspecified Status: Acute Assessment and Plan: continue supplemental O2 and bronchodilators (7) Person under investigation for COVID-19: Code(s): Z20.828 - Contact with and (suspected) exposure to other viral communicable diseases Status: Acute Assessment and Plan: SARS- CoV-2 PCR obtained and pending -continue airborne, droplet, contact isolation/precautions (8) DVT prophylaxis: Code(s): Z29.9 - Encounter for prophylactic measures, unspecified Status: Acute Assessment and Plan: DVT prophylaxis: Started on Lovenox Stress ulcer prophylaxis: Protonix Additional Plan Discussed with Alban, sister and updated her with patient's condition and plan of care, answered all questions I did update her regarding the pneumonia, which could be aspiration pneumonia due emesis. I also discussed with her regarding intubation and CPR she said do everything to keep him alive. Code status: Full code Critical care time spent: 44 minutes Head Machinist Consult Note Consult date: 07/20/20 Time Seen: 09:55 Reason for consult: Severe sepsis, pneumonia, UTI, SVT HPI: King Sullivan is a 60 year old male medical history of anemia, anxiety, COPD, disorder of the autonomic nervous system, dysphagia with jejunostomy-tube (placed on 05/29/2020), nonverbal at baseline, hydrocephalus, hypertension, was admitted from 05/24/2020 to 06/26/2020 when he was admitted for pneumonia, septic shock, acute respiratory failure requiring intubation, vernell
[2020-07-20] MEDS: PANTOPRAZOLE SODIUM IV 40 MG VIAL IV PUSH (11:48)
[2020-07-20] MEDS: AMPICILLIN SULB 3 GM/NS 100 ML 3 GM/100 ML VIAL IVPB ×3 (11:52→23:07)
[2020-07-20] MEDS: SODIUM CHLORIDE 0.9% IV 1,000 ML 75 ML IV CONT (11:56)
[2020-07-20] MEDS: ALTEPLASE 2 MG VIAL (CATHFLO) IV PUSH ×2 (12:45→15:05)
--- NOTE | 2020-07-20 13:47 | WPDINFPN2 ---
Progress Note: A&P Assessment and Plan (1) Acute respiratory failure with hypoxemia: Code(s): J96.01 - Acute respiratory failure with hypoxia Status: Acute Assessment and Plan: 1. Resp distress, possible HCAP 2. Chronic encephalopathy REC MRSA screen, stop Vanc if negative. AmpSulbactam #1. Subjective Date/time seen: 07/20/20 13:47 Objective Data Vital Signs Vital Signs: Vital Signs - 24 hr 07/20/20 05:54 07/20/20 06:33 07/20/20 09:07 Temperature 36.4 C L Pulse Rate 163 H 141 H 124 H Respiratory Rate 36 H 25 H Blood Pressure 116/78 128/75 104/68 Pulse Oximetry 97 99 07/20/20 10:00 07/20/20 12:00 07/20/20 12:48 Temperature 37.7 C H 37.0 C Pulse Rate 123 H 120 H Respiratory Rate 32 H 44 H Blood Pressure 112/61 103/60 Pulse Oximetry 94 90 99 Intake/Output Intake/Output: Intake & Output 07/17/20 07/18/20 07/19/20 07/20/20 23:59 23:59 23:59 23:59 Intake Total 2400 Balance 2400 Meds/Results Medications: Active Medications Generic Name Dose Route Start Last Admin Trade Name Freq PRN Reason Stop Dose Admin Alteplase, Recombinant 2 mg 07/20/20 10:44 07/20/20 12:45 Alteplase 2 Mg Vial (Cathflo) IV PUSH 2 mg ONCE PRN Administration Line Occlusion Budesonide 0.5 mg 07/20/20 20:00 Budesonide Respule Neb 0.5 Mg/2 Ml Amp INHALATION Q12HRT JERAMIE Enoxaparin Sodium 40 mg 07/21/20 09:00 Enoxaparin 40 Mg/0.4 Ml Syringe SUB-Q DAILY JERAMIE Diltiazem HCl 100 mg in 100 mls @ 5 mls/hr 07/20/20 06:13 07/20/20 06:33 Cardizem 100 Mg/D5w 100 Ml IV CONT 07/21/20 02:12 5 mg/hr .Q20H STA 5 mls/hr Administration Protocol 5 MG/HR Levofloxacin/Dextrose 750 mg in 150 mls @ 100 mls/hr 07/20/20 10:00 07/20/20 10:14 Levaquin 750 Mg/D5w 150 Ml IVPB 100 mls/hr Q24H JERAMIE Administration Vancomycin HCl 1,000 mg in 250 mls @ 250 mls/hr 07/20/20 21:00 Vancomycin 1,000 Mg/D5w 250 Ml IVPB Q12H JERAMIE Ampicillin Sodium/Sulbactam Sodium 3 gm in 100 mls @ 200 mls/hr 07/20/20 12:00 07/20/20 12:44 Unasyn 3 Gm/Ns 100 Ml IVPB Infused Q6H JERAMIE Infusion Sodium Chloride 1,000 mls @ 75 mls/hr 07/20/20 11:35 07/20/20 11:56 Normal Saline Iv IV CONT 75 mls/hr .[id number] JERAMIE Administration Levalbuterol HCl 0.63 mg 07/20/20 14:00 Levalbuterol Neb 1.25 Mg/3 Ml INHALATION Q6HRT JERAMIE Ondansetron HCl 4 mg 07/20/20 12:05 Ondansetron Inj 4 Mg/2 Ml Vial IV PUSH Q6H PRN Nausea And Vomiting Pantoprazole Sodium 40 mg 07/21/20 09:00 Pantoprazole Sodium Iv 40 Mg Vial IV PUSH QAM JERAMIE Sodium Chloride 10 ml 07/20/20 14:00 Central Line Flush IV PUSH Q8HR JERAMIE Sodium Chloride 20 ml 07/20/20 07:02 Central Line Flush IV PUSH PRN PRN after blood draws Radiology Results: ITS Impressions Chest X-Ray 07/20/20 06:58 IMPRESSION: 1. Patchy bilateral airspace opacities, worst in the left upper lobe, consistent with pneumonia and/or atelectasis. 2. Right upper extremity PICC inserted ending with its tip in the distal superior vena cava. Chest/Abdomen/Pelvis CTA 07/20/20 07:24 IMPRESSION: 1. No pulmonary embolism identified, sensitivity limited by respiratory motion artifact. 2. Widespread tree-in-bud opacities and centrilobular nodules with more focal consolidation in the left upper lobe, consistent with multifocal pneumonia. 3. Focal area of low attenuation in the right mid kidney which could reflect urinary tract infection/pyelonephritis. Labs Labs: Laboratory Results - last 24 hr 07/20/20 07/20/20 07/20/20 06:14 06:14 06:14 WBC 12.8 H RBC 4.42 L Hgb 10.1 L Hct 34.4 L MCV 77.8 L MCH 22.9 L MCHC 29.4 L RDW 18.5 H Plt Count 492 H MPV 10.2 Immature Gran % (Auto) 0.4 Neut % (Auto) 86.3 H Lymph % (Auto) 4.9 L [place] % (Auto) 6.6 Eos % (Auto) 1.6 Baso % (Auto) 0.2 Lymph # (Auto) 0.62 L [place]
[2020-07-20 14:07] LABS: SARS-CoV-2 RNA PCR Negative
--- NOTE | 2020-07-20 14:27 | CONS_ITS ---
DATE OF CONSULTATION: 07/20/2020 REASON FOR CONSULTATION: Respiratory distress. HISTORY OF PRESENT ILLNESS: A 60-year-old male who cannot provide any history has chronic encephalopathy. The patient has had a chronic G-tube changed to a J-tube during his last admission last month. Has a chronic Murphy without urinary infection. He was discharged from this hospital to his group home on June 26 on no antibiotics. He returned here early this morning with respiratory distress at his group home of acute onset. He was on non-rebreather initially, now tapered down to high-flow nasal cannula. He cannot provide any history and there are no group home records available for review. PRESENT MEDICATIONS: He has been given levofloxacin, ampicillin-sulbactam, and vancomycin. No immunosuppressants. ALLERGIES: NONE KNOWN. HABITS: Prior alcohol to excess. No tobacco. FAMILY HISTORY: Cancer, hypertension, seizure. PAST MEDICAL HISTORY: Hypertension, hydrocephalus, dysautonomia, COPD, anxiety, anemia. REVIEW OF SYSTEMS: 14-point review attempted, not obtainable from the patient due to encephalopathy. SOCIAL HISTORY: He is listed as single and disabled. There are no family at the bedside. PHYSICAL EXAMINATION: GENERAL: Middle-aged male who appears much older than his actual age. Cachectic, no respiratory distress, on supplemental O2. VITAL SIGNS: Afebrile since arrival up to 37.7. 120, 44, 103/60, 99% on 12 L. SKIN: Warm and dry. No rashes. No skin breakdown. EENT: The conjunctivae are normal. No petechiae. Dry mucous membranes. NECK: No meningismus or mass. LUNGS: Coarse breath sounds with rales bilaterally. Breath sounds are vesicular. Clear to percussion. CARDIAC: Tachycardic, regular. No murmurs. ABDOMEN: Scaphoid, not distended. Hypoactive bowel sounds. No tenderness. No mass. EXTREMITIES: Muscle wasting. No clubbing, cyanosis, or edema. LABORATORY DATA: Multiple prior cultures have been no growth from the blood. These have been repeated today. Urine culture also in process. White count 12.8, hemoglobin 10.1, platelets are 492. Blood gases 7.42, 35, 190 on non-rebreather 15 L. Potassium 5.5, otherwise his chemistry panel is normal. BNP 214. Albumin 3.4. His urinalysis, multiple abnormalities. Coronavirus assay is in process. RADIOLOGY: I personally reviewed his chest x-ray. He has new interstitial infiltrates in all 5 lobes. I also noted the CT interpretation. ASSESSMENT: 1. Respiratory distress, possible healthcare-associated pneumonia. Presence of his J-tube argues against aspiration type, but remains possible. Coronavirus pneumonia is also in the differential diagnosis. Other forms of pneumonia are less likely including methicillin-resistant Staphylococcus aureus. 2. Chronic encephalopathy. 3. Feeding tube in place. 4. Past alcohol to excess. RECOMMENDATIONS: 1. No levofloxacin at this time, but continue ampicillin and vancomycin. 2. MRSA screen of the nares and stop vancomycin if the screen is negative and if his clinical course allows. 3. Length of antibiotics to be determined. Thank you very much for asking me to see him. ESTEFANY STEWART M.D. DUMPSTER DRIVER DUMPSTER DRIVER D I MT: [place]
[2020-07-20] MEDS: CENTRAL LINE FLUSH 10 ML IV PUSH ×2 (15:00→21:06)
[2020-07-20] MEDS: SILVERGEL (ELTA) 45 ML 1 APPLIC TOPICAL (17:28)
[2020-07-20] MEDS: LEVALBUTEROL NEB 1.25 MG/3 ML 0.63 MG INHALATION (21:03)
[2020-07-20] MEDS: BUDESONIDE RESPULE NEB 0.5 MG/2 ML AMP INHALATION (21:03)
[2020-07-20] MEDS: LORazepam (*CRX) 0.5 MG TABLET 0.25 MG FEED TUBE (22:13)
[2020-07-20] MEDS: busPIRone HCL 10 MG TABLET FEED TUBE (22:15)
[2020-07-21] VITALS (25 sets, daily range): BP systolic 90–110; BP diastolic 48–70; PULSE 93–110; RESP 20–33; TEMP 36.1–37.2; O2SAT 93–100
[2020-07-21] MEDS: LEVALBUTEROL NEB 1.25 MG/3 ML 0.63 MG INHALATION ×3 (02:16→08:35)
[2020-07-21] MEDS: SODIUM CHLORIDE 0.9% IV 1,000 ML 75 ML IV CONT ×2 (02:59→21:12)
[2020-07-21] MEDS: busPIRone HCL 10 MG TABLET FEED TUBE ×3 (05:15→21:02)
[2020-07-21] MEDS: CENTRAL LINE FLUSH 10 ML IV PUSH ×3 (05:15→21:13)
[2020-07-21] MEDS: AMPICILLIN SULB 3 GM/NS 100 ML 3 GM/100 ML VIAL IVPB ×3 (05:15→17:54)
[2020-07-21 07:23] LABS: Lactic Acid Reflex 0.7 mmol/L (0.7-2.1)
[2020-07-21 07:33] LABS: Anion Gap 4 mmol/L (8-16); Blood Urea Nitrogen 10 mg/dL (9-20); Calcium 7.2 mg/dL (8.4-10.2); Carbon Dioxide 24 mmol/L (22-30); Chloride 110 mmol/L (98-107); Estimated CRCL calculation 114 ml/min; Estimated Glomerular Filt Rate > 60; Glucose 157 mg/dL (75-110); Magnesium 1.6 mg/dL (1.6-2.3); Phosphorus 2.7 mg/dL (2.5-4.5); Potassium 2.9 mmol/L (3.4-5.0); Sodium 138 mmol/L (137-145)
[2020-07-21 07:39] LABS: CRP 22.9 mg/dL (<1.0)
[2020-07-21] MEDS: FOLIC ACID 1 MG TABLET FEED TUBE (08:27)
[2020-07-21] MEDS: PANTOPRAZOLE SODIUM IV 40 MG VIAL IV PUSH (08:27)
[2020-07-21] MEDS: ENOXAPARIN 40 MG/0.4 ML SYRINGE SUB-Q (08:27)
[2020-07-21] MEDS: SILVERGEL (ELTA) 45 ML 1 APPLIC TOPICAL (08:27)
[2020-07-21 08:34] LABS: Hematocrit 25.5 % (42.0-52.0); Hemoglobin 7.4 g/dL (14.0-18.0); Mean Corpuscular Hemoglobin 22.7 pg (26-34); Mean Corpuscular Volume 78.2 fl (80-100); Platelet Count Result 354 k/mm3 (150-375); Red Blood Count 3.26 M/mm3 (4.6-6.20); Red Cell Distribution Width 18.2 % (11.5-14.5); White Blood Count 15.7 K/mm3 (4.5-10.0)
[2020-07-21] MEDS: BUDESONIDE RESPULE NEB 0.5 MG/2 ML AMP INHALATION ×2 (08:35→20:43)
[2020-07-21] MEDS: DORNASE ALFA INH SOLN 1 MG/ML 2.5 ML AMP 2.5 MG INHALATION ×2 (08:35→20:43)
--- NOTE | 2020-07-21 12:27 | WPDINTPN ---
Progress Note: A&P Assessment and Plan (1) Aspiration into airway: Code(s): T17.908A - Unspecified foreign body in respiratory tract, part unspecified causing other injury, initial encounter Status: Acute (2) Pneumonia: Qualifiers: Laterality: unspecified laterality Lung location: unspecified part of lung Pneumonia type: due to unspecified organism Qualified Code(s): J18.9 - Pneumonia, unspecified organism Code(s): J18.9 - Pneumonia, unspecified organism Status: Acute Assessment and Plan: Acute respiratory failure likely related to emesis and aspiration. Patient currently supplemental oxygen, tachypneic. -chest x-ray and CT scan showed multifocal pneumonia with tree in bud pattern mostly in the upper lobes, L> R (2) Pneumonia: COVID-19 has been ruled out. He has tree-in-bud opacities mostly in the upper lobes. Although any type of bacterial pneumonias can do this MAC lung disease should also be in the differential. I will order a QuantiFERON TB gold test. Antibiotics are to continue per Dr. Luke recommendations which are appreciated. (3) Acute hypoxemic respiratory failure: Code(s): J96.01 - Acute respiratory failure with hypoxia Status: Acute Assessment and Plan: stable on 6 L nasal cannula. Can transfer to IMU with telemetry monitoring. (4) Encephalopathy chronic: Code(s): G93.49 - Other encephalopathy Status: Chronic (5) Gastrostomy tube dysfunction: Code(s): K94.23 - Gastrostomy malfunction Status: Acute (6) COPD (chronic obstructive pulmonary disease): Code(s): J44.9 - Chronic obstructive pulmonary disease, unspecified Status: Acute Assessment and Plan: continue ipratropium 0.6 mg q.6 hours Continue Pulmicort 0.5 mg q.12 hours nebulized. Subjective Date/time seen: 07/21/20 12:27 Interval history: This is a 60-year-old male with developmental delay, encephalopathy who presents with recurrent aspiration like events and acute hypoxemic respiratory failure. On CT scan he has bilateral mostly upper lobe tree and bud opacities. The patient is not able to give a history I have no known history of tuberculosis or MAC lung disease in this patient. He is currently being followed by Dr. luke who was managing the antibiotics. He has been stable overnight on 6 L nasal cannula and hemodynamically stable as well. Review of Systems Review of Systems: All systems reviewed & are unremarkable except as noted in HPI and below Exam Const: Other: Patient looks comfortable blood slightly tachypneic. Patient is cachectic HENMT: Mouth: Yes moist mucous membranes Eyes: Sclera: sclerae normal Pupils: Equal, round and reactive pupils present Neck: Neck: supple Other: Previous tracheostomy scar Resp: Auscultation: rales, rhonchi and diminished lung sounds Cardio: Rate: tachycardic Rhythm: regular rhythm GI: GI Palp: Yes Soft to palpation and No Tenderness to palpation present (GI) Auscultation: normal bowel sounds Other: Jejunostomy tube and Murphy catheter as a PEG tube : Other: Murphy catheter in place Urinary Catheter: Urinary Catheter: patent and draining, urine clear and urine dark Skin: General skin exam: normal color and no rashes or lesions noted Other: Dry skin and warm Neuro: Other: Patient is nonverbal at baseline, contracted, opens eyes to name, tracks. Does not answer questions or follow simple commands Extrem: General: edema and pedal edema Other: PICC line in right upper extremity Psych: Other: Unable to assess at this time Objective Data Vital Signs Vital Signs: Vital Signs - 24 hr 07/20/20 12:48 07/20/20 14:00 07/20/20 14:10 Temperature Pulse Rate 116 H Respiratory Rate 38 H Blood Pressure 113/65 Pulse Oximetry 99 97 97 07/20/20 15:09 07/20/20 15:37 07/20/20 16:00 Temperature 37.5 C Pulse Rate 118 H 120 H 118 H Respiratory Rate 33 H Blood Pre
[2020-07-21] MEDS: IPRATROPIUM BR 0.02% INH SOLN 0.5 MG/2.5 ML VIAL INHALATION ×2 (14:14→20:43)
--- NOTE | 2020-07-21 15:15 | PM.IMPN ---
Progress Note: A&P Assessment and Plan (1) Acute hypoxemic respiratory failure: Code(s): J96.01 - Acute respiratory failure with hypoxia Status: Acute Assessment and Plan: Patient was weaned to high-flow nasal cannula. Patient does not require oxygen at the longterm. We continued O2 for supportive care and able to wean oxygen off. Continue nebulizer treatments. Continue broad-spectrum antibiotics. (2) Severe sepsis: Code(s): A41.9 - Sepsis, unspecified organism; R65.20 - Severe sepsis without septic shock Status: Acute Assessment and Plan: Present on admission with tachycardia, respiratory failure, tachypnea and leukocytosis. Related to aspiration pneumonia +/-pyelonephritis. Patient admitted to the ICU. CRP 23 and WBC higher at 15.7K. BCx NGTD. UCx pending. Continue nebulizer treatments. Continue broad-spectrum IV antibiotics. (3) SVT (supraventricular tachycardia): Code(s): I47.1 - Supraventricular tachycardia Status: Acute Assessment and Plan: Presumably patient had SVT in the field although when he was slowed down, it appeared to be sinus tachycardia. More likely this is not SVT; suspect more likely sinus tachycardia related to his acute respiratory failure. Patient remains on diltiazem. Patient is on diltiazem the longterm. Change to Diltiazem via GT when able. Watch BP. (4) Pneumonia: Qualifiers: Laterality: unspecified laterality Lung location: unspecified part of lung Pneumonia type: due to unspecified organism Qualified Code(s): J18.9 - Pneumonia, unspecified organism Code(s): J18.9 - Pneumonia, unspecified organism Status: Acute Assessment and Plan: CTA showing no pulmonary emboli but does show widespread tree-in-bud opacities and central lobular nodules with more focal consolidation left upper lobe consistent with multifocal pneumonia. Trach site could be a tracheocutaneous fistula which could be a nidus for recurrent pneumonia. BCx NGTD. MRSA nasal swab pending. Will check CT of the neck when more stable. Continue broad-spectrum IV antibiotics. (5) Pyelonephritis: Code(s): N12 - Tubulo-interstitial nephritis, not specified as acute or chronic Status: Acute Assessment and Plan: UA noted consistent with UTI. CT scan shows focal area of attenuation in the right mid kidney which could reflect UTI or pyelonephritis. Urine culture pending. BCx NGTD. Continue broad-spectrum IV antibiotics. (6) Nausea & vomiting: Qualifiers: Vomiting Intractability: non-intractable Vomiting type: unspecified Qualified Code(s): R11.2 - Nausea with vomiting, unspecified Code(s): R11.2 - Nausea with vomiting, unspecified Status: Acute Assessment and Plan: Patient had episode of nausea vomiting the night prior to admission that resulted in aspiration. This is a chronic issue for this patient. Unclear if the nausea vomiting occurs 1st then resulting in aspiration or the nausea vomiting is related to his declining condition from infection. Nothing concerning on the CT scan for bowel pathology. Resume TF when okay with electric fork operator. (7) Dysphagia: Qualifiers: Dysphagia type: unspecified Qualified Code(s): R13.10 - Dysphagia, unspecified Code(s): R13.10 - Dysphagia, unspecified Status: Chronic Assessment and Plan: Patient had J-tube placed to try to minimize reflux and aspiration. G-tube (Murphy)for decompression. Will discuss with GI to see if the Murphy should be changed back to G-tube. Tube feedings on hold. (8) Encephalopathy chronic: Code(s): G93.49 - Other encephalopathy Status: Chronic Assessment and Plan: Patient with chronic encephalopathy and appears at baseline. (9) COPD (chronic obstructive pulmonary disease): Code(s): J44.9 - Chronic obstructive pulmonary disease, unspecified
[2020-07-21] MEDS: MAGNESIUM SULF 2 GM/WATER 50ML 2 GM/50 ML BAG IVPB (16:12)
[2020-07-21 20:23] LABS: Influenza Control Positive
[2020-07-21] MEDS: LORazepam (*CRX) 0.5 MG TABLET 0.25 MG FEED TUBE (21:02)
[2020-07-21 21:03] LABS: Vancomycin Trough 11.5 ug/mL (10.0-20.0)
[2020-07-22] VITALS (29 sets, daily range): BP systolic 100–166; BP diastolic 62–85; PULSE 81–115; RESP 14–24; TEMP 36.1–37; O2SAT 92–100
--- NOTE | 2020-07-22 | PC.NURSE ---
This patient, King Sullivan, was transferred to [ 232] on 07/22/20 at 0000. Personal belongings sent with patient. Report given to [Sindhu CRAWFORD ]. Appropriate documentation sent with patient.
[2020-07-22] MEDS: AMPICILLIN SULB 3 GM/NS 100 ML 3 GM/100 ML VIAL IVPB ×2 (00:08→05:13)
[2020-07-22] MEDS: IPRATROPIUM BR 0.02% INH SOLN 0.5 MG/2.5 ML VIAL INHALATION ×4 (02:19→19:52)
--- NOTE | 2020-07-22 02:48 | PC.NURSE ---
This patient, King Sullivan, was received from ICU on 07/22/20 at 0000. Report received from Katiana CRAWFORD. Patient oriented to unit policies and routines
[2020-07-22] MEDS: busPIRone HCL 10 MG TABLET FEED TUBE ×3 (05:14→21:10)
[2020-07-22] MEDS: CENTRAL LINE FLUSH 10 ML IV PUSH ×3 (05:14→21:11)
[2020-07-22 05:20] LABS: Hematocrit 21.8 % (42.0-52.0); Mean Corpuscular HGB Conc 29.4 g/dl (32-36); Mean Corpuscular Hemoglobin 22.7 pg (26-34); Mean Corpuscular Volume 77.3 fl (80-100); Mean Platelet Volume 9.5 fl (7.4-10.4); Platelet Count Result 321 k/mm3 (150-375); Red Blood Count 2.82 M/mm3 (4.6-6.20); Red Cell Distribution Width 18.4 % (11.5-14.5); White Blood Count 11.5 K/mm3 (4.5-10.0)
[2020-07-22 05:45] LABS: Anion Gap 3 mmol/L (8-16); Blood Urea Nitrogen 5 mg/dL (9-20); Calcium 8.1 mg/dL (8.4-10.2); Carbon Dioxide 26 mmol/L (22-30); Chloride 110 mmol/L (98-107); Estimated CRCL calculation 117 ml/min; Estimated Glomerular Filt Rate > 60; Glucose 84 mg/dL (75-110); Magnesium 1.9 mg/dL (1.6-2.3); Phosphorus 2.7 mg/dL (2.5-4.5); Potassium 3.4 mmol/L (3.4-5.0); Sodium 139 mmol/L (137-145)
[2020-07-22 06:52] LABS: Hemoglobin 6.4 g/dL (14.0-18.0)
[2020-07-22] MEDS: POTASSIUM CHLORIDE 20 MEQ PACKET (FOR LIQUID) 40 MEQ FEED TUBE (08:57)
[2020-07-22] MEDS: FOLIC ACID 1 MG TABLET FEED TUBE (08:58)
[2020-07-22] MEDS: ENOXAPARIN 40 MG/0.4 ML SYRINGE SUB-Q (08:59)
[2020-07-22] MEDS: PANTOPRAZOLE SODIUM IV 40 MG VIAL IV PUSH (09:00)
[2020-07-22] MEDS: FUROSEMIDE INJ 40 MG/4 ML VIAL 20 MG IV PUSH (09:03)
[2020-07-22] MEDS: SILVERGEL (ELTA) 45 ML 1 APPLIC TOPICAL (09:04)
[2020-07-22 09:32] LABS: IFOB Positive Control Positive; Immunochemical Fecal Occult Bl Positive (N)
[2020-07-22] MEDS: BUDESONIDE RESPULE NEB 0.5 MG/2 ML AMP INHALATION ×2 (10:10→19:51)
[2020-07-22] MEDS: DORNASE ALFA INH SOLN 1 MG/ML 2.5 ML AMP 2.5 MG INHALATION ×2 (10:12→19:52)
[2020-07-22] MEDS: SODIUM CHLORIDE 0.9% IV 250 ML 30 ML IV CONT (11:19)
[2020-07-22] MEDS: TUBING, BLOOD PLUM PUMP TUBING 1 EACH XX (11:19)
--- NOTE | 2020-07-22 15:17 | PM.IMPN ---
Progress Note: A&P Assessment and Plan (1) Acute hypoxemic respiratory failure: Code(s): J96.01 - Acute respiratory failure with hypoxia Status: Acute Assessment and Plan: Patient hypoxic on admission. Patient does not require oxygen at the [facility]. He required a NRB mask then HFNC. We were able to wean to room air. Continue supportive care. Continue nebulizer treatments. Continue broad-spectrum antibiotics. (2) Severe sepsis: Code(s): A41.9 - Sepsis, unspecified organism; R65.20 - Severe sepsis without septic shock Status: Acute Assessment and Plan: Present on admission with tachycardia, respiratory failure, tachypnea and leukocytosis. Related to aspiration pneumonia and pyelonephritis. Patient admitted to the ICU. WBC better today; no fevers. BCx NGTD. UCx growing pseudomonas. Continue nebulizer treatments. Continue broad-spectrum IV antibiotics. (3) SVT (supraventricular tachycardia): Code(s): I47.1 - Supraventricular tachycardia Status: Acute Assessment and Plan: Presumably patient had SVT in the field although when he was slowed down, it appeared to be sinus tachycardia. More likely this is not SVT; suspect more likely sinus tachycardia related to his acute respiratory failure. Patient off diltiazem drip. Patient is on diltiazem the [facility]. Resume Diltiazem per Carrie (4) Pneumonia: Qualifiers: Laterality: unspecified laterality Lung location: unspecified part of lung Pneumonia type: due to unspecified organism Qualified Code(s): J18.9 - Pneumonia, unspecified organism Code(s): J18.9 - Pneumonia, unspecified organism Status: Acute Assessment and Plan: CTA showing no pulmonary emboli but does show widespread tree-in-bud opacities and central lobular nodules with more focal consolidation left upper lobe consistent with multifocal pneumonia. Old trach site dry now. BCx NGTD. MRSA nasal swab positive. Will hold on CT of the neck at this time. Continue broad-spectrum IV antibiotics. (5) Pyelonephritis: Code(s): N12 - Tubulo-interstitial nephritis, not specified as acute or chronic Status: Acute Assessment and Plan: Patient with chronic Murphy. UA noted consistent with UTI. CT scan shows focal area of attenuation in the right mid kidney which could reflect UTI or pyelonephritis. Urine culture growing pseudomonas. BCx NGTD. Change to Zosyn. (6) Nausea & vomiting: Qualifiers: Vomiting Intractability: non-intractable Vomiting type: unspecified Qualified Code(s): R11.2 - Nausea with vomiting, unspecified Code(s): R11.2 - Nausea with vomiting, unspecified Status: Acute Assessment and Plan: Patient had episode of nausea vomiting the night prior to admission that resulted in aspiration. This is a chronic issue for this patient. Unclear if the nausea vomiting occurs 1st then resulting in aspiration or the nausea vomiting is related to his declining condition from infection. Nothing concerning on the CT scan for bowel pathology. Resume TF. (7) Dysphagia: Qualifiers: Dysphagia type: unspecified Qualified Code(s): R13.10 - Dysphagia, unspecified Code(s): R13.10 - Dysphagia, unspecified Status: Chronic Assessment and Plan: Patient had J-tube placed to try to minimize reflux and aspiration. G-tube (Murphy)for decompression. Will discuss with GI to see if the Murphy should be changed back to G-tube. Resume TF. (8) Encephalopathy chronic: Code(s): G93.49 - Other encephalopathy Status: Chronic Assessment and Plan: Patient with chronic encephalopathy and appears at baseline. (9) COPD (chronic obstructive pulmonary disease): Code(s): J44.9 - Chronic obstructive pulmonary disease, unspecified Status: Acute Assessment and Plan: Stable. Continue nebulizer treatments. (10
[2020-07-22] MEDS: METOCLOPRAMIDE HCL 5 MG TABLET FEED TUBE ×2 (16:46→21:10)
[2020-07-22] MEDS: FAMOTIDINE 20 MG TABLET FEED TUBE (16:46)
[2020-07-22] MEDS: dilTIAZem HCL 60 MG TABLET FEED TUBE (17:59)
--- NOTE | 2020-07-22 18:33 | WPDCN ---
Assessment and Plan Additional Plan 1. Multifocal pneumonia with acute hypoxic respiratory failure. Nasal swab was positive for MRSA. Patient is currently on Zosyn and vancomycin day 2. WBC count is at 11,000. Blood cultures are so far negative. Respiratory status stable. Continue current mode of therapy. Keep head elevated at 30? to avoid aspiration. 2. Urinary tract infection with questionable pyelonephritis on CT scan of the abdomen and pelvis. Urine culture showed Pseudomonas aeruginosa sensitive to Zosyn. Patient is currently on Zosyn day 2. Will continue. Anticipate 5-7 days of IV antibiotic therapy. 3. Chronic vegetative state. Patient is contracted in bed bound. G-tube dependent for feeding. Recommend a rotating Q 2 hours to avoid pressure related skin injury. Patient already has early signs of eschar and pressure related skin injury on bilateral feet and trochanteric area. Decubitus area overall showed some pressure related skin injury with no breakdown. 4. History of COPD with acute respiratory failure on presentation. Respiratory status stable. 5. Date of service 07/22/2120. CC Dr. Alexander Leigh [facility] Data of Consult Date/Time: 07/22/20 18:33 Requesting Physician: Alexander Leigh MD Primary Care Provider: UNKNOWN,DOCTOR Consult Narrative Narrative: King Sullivan is a 60 year old male with history of chronic encephalopathy and vegetative state. Patient also has history of hypertension and COPD. Patient has a G-tube as well as an ileal conduit. Patient was brought to the emergency room on 07/20/2020 from a senior living after he was found to have respiratory distress. Patient was recently discharged from the hospital in May for septic shock, complicated pneumonia and aspiration pneumonia. A CT scan of the chest on admission showed multifocal pneumonia. We were requested to see him for further antibiotics management. Patient is currently on Zosyn and vancomycin day 2. Patient is not in distress. Currently nonverbal. Review of Systems Review of Systems: Narrative: Review of system was not obtained because patient is nonverbal in a vegetative state. [facility] Past Medical History Medical History Anemia Anxiety COPD (chronic obstructive pulmonary disease) Disorder of autonomic nervous system Dysphagia With G-Tube placement Encephalopathy chronic History of gastrostomy tube placement Hydrocephalus Hypertension Paroxysmal tachycardia Surgical History Surgical History History of tracheostomy x2 Family History Family History Mother Endometrial cancer Father Hypertension Sibling Seizure Social History Social History Social History: No hx of tobacco use but heavy alcohol use per sister. She was unsure if patient has hx of drug use. Patient is a senior living resident. He is full code Smoking status: Unknown if ever smoked Alcohol intake: unknown Substance use: unknown Gender identity (if verbalized by the patient): Male Spiritual care concerns: No Meds Home Medications and Allergies Home Medications Medication Instructions Recorded Confirmed Type ipratropium-albuterol 3 ml INHALATION QID PRN 05/09/20 07/20/20 History buspirone 10 mg FEEDING TUBE TID #90 tablet 05/22/20 07/20/20 Rx folic acid 1 mg FEEDING TUBE DAILY #30 tablet 05/22/20 07/20/20 Rx metoclopramide HCl 5 mg FEEDING TUBE ACHS #120 tablet 05/22/20 07/20/20 Rx acetaminophen 650 mg PO Q6H PRN 05/24/20 07/20/20 History diltiazem HCl 60 mg FEEDING TUBE Q6HR #30 tablet 06/07/20 07/20/20 Rx dornase nikky [Pulmozyme] 2.5 mg INHALATION Q12HRT 30 Days 06/07/20 07/20/20 Rx #150 ml famotidine 20 mg FEEDING TUBE BID 30 Days #60 06/07/20 07/20/20 Rx tablet insulin aspart U-100 [Novolog
[2020-07-22] MEDS: LORazepam (*CRX) 0.5 MG TABLET 0.25 MG FEED TUBE (21:10)
[2020-07-23] VITALS (23 sets, daily range): BP systolic 118–132; BP diastolic 63–81; PULSE 73–128; RESP 14–24; TEMP 36–36.9; O2SAT 88–98
[2020-07-23] MEDS: dilTIAZem HCL 60 MG TABLET FEED TUBE ×4 (00:30→16:34)
[2020-07-23] MEDS: IPRATROPIUM BR 0.02% INH SOLN 0.5 MG/2.5 ML VIAL INHALATION ×4 (01:40→20:14)
[2020-07-23] MEDS: METOCLOPRAMIDE HCL 5 MG TABLET FEED TUBE ×4 (06:09→21:36)
[2020-07-23] MEDS: busPIRone HCL 10 MG TABLET FEED TUBE ×3 (06:10→21:36)
[2020-07-23] MEDS: CENTRAL LINE FLUSH 10 ML IV PUSH ×3 (06:10→21:37)
[2020-07-23 06:32] LABS: Hematocrit 32.1 % (42.0-52.0); Hemoglobin 10.1 g/dL (14.0-18.0); Mean Corpuscular HGB Conc 31.5 g/dl (32-36); Mean Corpuscular Hemoglobin 25.1 pg (26-34); Mean Corpuscular Volume 79.7 fl (80-100); Mean Platelet Volume 9.6 fl (7.4-10.4); Platelet Count Result 320 k/mm3 (150-375); Red Blood Count 4.03 M/mm3 (4.6-6.20); Red Cell Distribution Width 18.6 % (11.5-14.5); White Blood Count 9.7 K/mm3 (4.5-10.0)
[2020-07-23 08:30] LABS: Anion Gap 3 mmol/L (8-16); Blood Urea Nitrogen 4 mg/dL (9-20); Calcium 8.2 mg/dL (8.4-10.2); Carbon Dioxide 28 mmol/L (22-30); Chloride 105 mmol/L (98-107); Estimated CRCL calculation 116 ml/min; Estimated Glomerular Filt Rate > 60; Glucose 127 mg/dL (75-110); Magnesium 1.4 mg/dL (1.6-2.3); Phosphorus 2.2 mg/dL (2.5-4.5); Potassium 3.1 mmol/L (3.4-5.0); Sodium 136 mmol/L (137-145)
[2020-07-23] MEDS: ENOXAPARIN 40 MG/0.4 ML SYRINGE SUB-Q (08:37)
[2020-07-23] MEDS: FOLIC ACID 1 MG TABLET FEED TUBE (08:37)
[2020-07-23] MEDS: FAMOTIDINE 20 MG TABLET FEED TUBE ×2 (08:38→16:33)
[2020-07-23] MEDS: SILVERGEL (ELTA) 45 ML 1 APPLIC TOPICAL (08:39)
[2020-07-23] MEDS: DORNASE ALFA INH SOLN 1 MG/ML 2.5 ML AMP 2.5 MG INHALATION ×2 (09:11→20:19)
[2020-07-23] MEDS: BUDESONIDE RESPULE NEB 0.5 MG/2 ML AMP INHALATION ×2 (09:11→20:14)
--- NOTE | 2020-07-23 12:18 | PCDIET ---
Nutrition Follow-Up Complete: Nutrition Diagnosis: Inadequate infusion of enteral nutrition related to multiple medical conditions as evidenced by NPO status. Nutrition Goal: Patient to meet estimated nutritional needs. Goal in progress. Jevity 1.2 advancing toward goal rate of 60mL/hr; currently at 40mL/hr. Recommend maintaining feedings at 40mL/hr today and replacing magnesium, phosphorus and potassium. Patient may also benefit from addition of thiamin (100mg). Last recorded weight is 51.9 kg which is stable with last review. Bowel Motility: BM x 3 on 07/22/20. Labs Reviewed: Hgb (10.1), Hct (32.1), Cr (0.4), K (3.1), Na (136), Ca (8.2), PO4 (2.2), Mg (1.4) Meds Noted: Pulmicort, Folic Acid, Atrovent, Reglan, Zosyn, Vancomycin Additional Notes: Multiple pressure ulcers noted. Will continue to monitor with same goal. Nutrition Monitoring and Evaluation: Follow up every Thursday/Thursday.
--- NOTE | 2020-07-23 13:39 | WPDINFPN2 ---
Progress Note: A&P Assessment and Plan (1) Acute respiratory failure with hypoxemia: Code(s): J96.01 - Acute respiratory failure with hypoxia Status: Acute Assessment and Plan: 1. Resp distress, possible HCAP. Findings resolved, though CXR not repeated yet. 2. Chronic encephalopathy 3. Bacteriuria REC Vanc #4. Ciprofloxaxcin # 1. Would not use PipTazo due to potential for additive nephrotoxicity when used with Vanc. Subjective Date/time seen: 07/23/20 13:39 Interval history: non verbal. On room air Exam Narrative: Exam Narrative: afebrile Const: General: no acute distress Other: chronically ill appearance, as before. He is in no respiratory distress Resp: Effort & Inspection: normal respiratory effort Auscultation: clear to auscultation bilaterally and diminished lung sounds Cardio: Rate: regular rate Rhythm: regular rhythm Heart sounds: no murmurs GI: Inspection: non-distended GI Palp: Yes Soft to palpation and No Tenderness to palpation present (GI) Objective Data Vital Signs Vital Signs: Vital Signs - 24 hr 07/22/20 13:46 07/22/20 14:00 07/22/20 14:04 Temperature 36.8 C 37.0 C Pulse Rate 106 H 104 H 101 H Respiratory Rate 16 14 Blood Pressure 132/78 136/84 Pulse Oximetry 94 96 07/22/20 14:55 07/22/20 15:04 07/22/20 15:05 Temperature 36.9 C Pulse Rate 104 H 112 H 101 H Respiratory Rate 20 16 20 Blood Pressure 131/85 Pulse Oximetry 94 07/22/20 16:00 07/22/20 16:04 07/22/20 18:00 Temperature 36.6 C 36.9 C Pulse Rate 106 H 103 H 102 H Respiratory Rate 18 16 Blood Pressure 128/78 130/81 Pulse Oximetry 95 93 07/22/20 19:52 07/22/20 19:54 07/22/20 20:00 Temperature 36.7 C Pulse Rate 106 H 104 H Respiratory Rate 16 16 Blood Pressure 122/66 Pulse Oximetry 96 96 07/22/20 20:06 07/22/20 22:00 07/22/20 23:41 Temperature 36.4 C Pulse Rate 105 H 103 H 101 H Respiratory Rate 16 16 Blood Pressure 118/74 Pulse Oximetry 96 07/23/20 00:00 07/23/20 01:40 07/23/20 01:50 Temperature Pulse Rate 104 H 102 H 100 Respiratory Rate 16 18 18 Blood Pressure Pulse Oximetry 96 07/23/20 02:00 07/23/20 04:00 07/23/20 06:00 Temperature 36.0 C L Pulse Rate 102 H 103 H 103 H Respiratory Rate 16 Blood Pressure 118/79 Pulse Oximetry 94 07/23/20 08:00 07/23/20 09:15 07/23/20 09:37 Temperature 36.6 C Pulse Rate 95 128 H 73 Respiratory Rate 24 H 18 18 Blood Pressure 120/63 Pulse Oximetry 95 89 L 07/23/20 10:00 07/23/20 12:00 Temperature 36.8 C Pulse Rate 95 96 Respiratory Rate 24 H Blood Pressure 131/72 Pulse Oximetry 96 Intake/Output Intake/Output: Intake & Output 07/20/20 07/21/20 07/22/20 07/23/20 23:59 23:59 23:59 23:59 Intake Total 3346.7 2703.3 1953 614 Output Total 1100 1000 2250 550 Balance 2246.7 1703.3 -297 64 Meds/Results Medications: Active Medications Generic Name Dose Route Start Last Admin Trade Name Freq PRN Reason Stop Dose Admin Acetaminophen 650 mg 07/20/20 21:02 Acetaminophen Elixir 325 Mg/10.15 Ml Udc FEED TUBE Q6H PRN Pain Alteplase, Recombinant 2 mg 07/20/20 10:44 07/20/20 15:05 Alteplase 2 Mg Vial (Cathflo) IV PUSH 2 mg ONCE PRN Administration Line Occlusion Budesonide 0.5 mg 07/20/20 20:00 07/23/20 09:11 Budesonide Respule Neb 0.5 Mg/2 Ml Amp INHALATION 0.5 mg Q12HRT JERAMIE Administration Buspirone HCl 10 mg 07/20/20 22:00 07/23/20 06:10 Buspirone Hcl 10 Mg Tablet FEED TUBE 10 mg Q8HR JERAMIE Administration Diltiazem HCl 60 mg 07/22/20 18:00 07/23/20 12:05 Diltiazem Hcl 60 Mg Tablet FEED TUBE 60 mg Q6HR JERAMIE Administration Dornase Demetris 2.5 mg 07/21/20 08:00 07/23/20 09:11 Dornase Demetris Inh Soln 1 Mg/Ml 2.5 Ml Amp INHALATION 2.5 mg Q12HRT JERAMIE Administration Enoxaparin Sodium 40 mg 07/21/20 09:00 07/23/20 08:37 Enoxaparin 40 Mg/0.4 Ml Syringe SUB-Q 40 mg DAILY JERAMIE Administration Famoti
--- NOTE | 2020-07-23 15:01 | PM.IMPN ---
Progress Note: A&P Assessment and Plan (1) Acute hypoxemic respiratory failure: Code(s): J96.01 - Acute respiratory failure with hypoxia Status: Acute Assessment and Plan: Patient was hypoxic on admission. Patient does not require oxygen at the snf. He required a NRB mask then HFNC. We were able to wean to room air. Continue supportive care. Continue nebulizer treatments. Continue broad-spectrum antibiotics. Left message with family. (2) Severe sepsis: Code(s): A41.9 - Sepsis, unspecified organism; R65.20 - Severe sepsis without septic shock Status: Acute Assessment and Plan: Present on admission with tachycardia, respiratory failure, tachypnea and leukocytosis. Related to aspiration pneumonia and pyelonephritis. Patient admitted to the ICU. WBC normal now; no fevers. BCx NGTD. UCx growing pseudomonas. Continue nebulizer treatments. Continue broad-spectrum IV antibiotics. (3) SVT (supraventricular tachycardia): Code(s): I47.1 - Supraventricular tachycardia Status: Acute Assessment and Plan: Presumably patient had SVT in the field although when he was slowed down, it appeared to be sinus tachycardia. More likely this is not SVT; suspect more likely sinus tachycardia related to his acute respiratory failure. Patient was on a diltiazem drip but this was stopped. Patient is on diltiazem at the snf and this has been resumed. HR controlled. (4) Pneumonia: Qualifiers: Laterality: unspecified laterality Lung location: unspecified part of lung Pneumonia type: due to unspecified organism Qualified Code(s): J18.9 - Pneumonia, unspecified organism Code(s): J18.9 - Pneumonia, unspecified organism Status: Acute Assessment and Plan: CTA showing no pulmonary emboli but does show widespread tree-in-bud opacities and central lobular nodules with more focal consolidation left upper lobe consistent with multifocal pneumonia. Old trach site dry now. BCx NGTD. MRSA nasal swab positive. Currently on Cipro and Vanco. Follow for now but consider anaerobic coverage if symptoms worsen. (5) Pyelonephritis: Code(s): N12 - Tubulo-interstitial nephritis, not specified as acute or chronic Status: Acute Assessment and Plan: Patient with chronic Murphy. UA noted consistent with UTI. CT scan shows focal area of attenuation in the right mid kidney which could reflect UTI or pyelonephritis. Urine culture growing pseudomonas that is lipscomb-sensitive. BCx NGTD. Cipro started. (6) Nausea & vomiting: Qualifiers: Vomiting Intractability: non-intractable Vomiting type: unspecified Qualified Code(s): R11.2 - Nausea with vomiting, unspecified Code(s): R11.2 - Nausea with vomiting, unspecified Status: Acute Assessment and Plan: Patient had episode of nausea vomiting the night prior to admission that resulted in aspiration. This is a chronic issue for this patient. Unclear if the nausea vomiting occurs 1st then resulting in aspiration or the nausea vomiting is related to his declining condition from infection. Nothing concerning on the CT scan for bowel pathology. Continue TF. (7) Dysphagia: Qualifiers: Dysphagia type: unspecified Qualified Code(s): R13.10 - Dysphagia, unspecified Code(s): R13.10 - Dysphagia, unspecified Status: Chronic Assessment and Plan: Patient had J-tube placed to try to minimize reflux and aspiration. G-tube (Murphy)for decompression. GI to see to change Murphy out back to G-tube. Continue TF. (8) Encephalopathy chronic: Code(s): G93.49 - Other encephalopathy Status: Chronic Assessment and Plan: Patient with chronic encephalopathy and appears at baseline. (9) COPD (chronic obstructive pulmonary disease): Code(s): J44.9 - Chronic obstructive pulmonary disease, unspecified Sta
[2020-07-23] MEDS: POTASSIUM CHLORIDE 20 MEQ PACKET (FOR LIQUID) 40 MEQ FEED TUBE (16:32)
[2020-07-23] MEDS: CIPROFLOXACIN 400 MG/D5W 200ML 200 ML 200 MG IVPB (16:32)
[2020-07-23] MEDS: MAGNESIUM SULF 2 GM/WATER 50ML 2 GM/50 ML BAG IVPB (16:32)
[2020-07-23] MEDS: POTASSIUM/PHOSPHORUS/SODIUM 1.5 GM PACKET 1 PACKET FEED TUBE (16:33)
[2020-07-23] MEDS: LORazepam (*CRX) 0.5 MG TABLET 0.25 MG FEED TUBE (21:36)
[2020-07-23 22:13] LABS: Vancomycin Trough 15.7 ug/mL (10.0-20.0)
[2020-07-24] VITALS (23 sets, daily range): BP systolic 121–139; BP diastolic 77–89; PULSE 99–125; RESP 14–44; TEMP 36.3–37.6; O2SAT 90–100
[2020-07-24] MEDS: dilTIAZem HCL 60 MG TABLET FEED TUBE ×4 (00:07→16:27)
[2020-07-24] MEDS: IPRATROPIUM BR 0.02% INH SOLN 0.5 MG/2.5 ML VIAL INHALATION ×4 (01:57→20:34)
[2020-07-24] MEDS: CIPROFLOXACIN 400 MG/D5W 200ML 200 ML 200 MG IVPB (03:06)
[2020-07-24] MEDS: CENTRAL LINE FLUSH 10 ML IV PUSH ×3 (05:49→23:51)
[2020-07-24] MEDS: METOCLOPRAMIDE HCL 5 MG TABLET FEED TUBE ×3 (05:49→16:27)
[2020-07-24] MEDS: busPIRone HCL 10 MG TABLET FEED TUBE ×2 (05:49→16:27)
[2020-07-24 06:06] LABS: Albumin Level 2.9 g/dL (3.5-5.1); Anion Gap 5 mmol/L (8-16); Blood Urea Nitrogen 4 mg/dL (9-20); Carbon Dioxide 27 mmol/L (22-30); Chloride 102 mmol/L (98-107); Estimated CRCL calculation 117 ml/min; Estimated Glomerular Filt Rate > 60; Glucose 98 mg/dL (75-110); Magnesium 1.6 mg/dL (1.6-2.3); Phosphorus 2.7 mg/dL (2.5-4.5); Potassium 3.7 mmol/L (3.4-5.0); Sodium 134 mmol/L (137-145)
[2020-07-24 06:34] LABS: Basophils Percent Auto 0.2 % (0.2-1.2); Eosinophils Absolute Auto 0.4 K/mm3 (0-0.3); Eosinophils Percent Auto 4.8 % (0-4.4); Hematocrit 34.8 % (42.0-52.0); Immature Granulocyte Absolute 0.11 K/mm3 (0.00-0.031); Immature Granulocyte Percent A 1.3 % (0-0.5); Lymphocytes Absolute Auto 1.02 K/mm3 (0.9-3.2); Lymphocytes Percent Auto 12.2 % (18.3-44.2); Mean Corpuscular HGB Conc 31.6 g/dl (32-36); Mean Corpuscular Volume 79.1 fl (80-100); Monocytes Absolute Auto 0.8 K/mm3 (0.1-0.6); Monocytes Percent Auto 8.9 % (2.6-8.5); Neutrophils Absolute Auto 6.1 K/mm3 (1.3-6.7); Neutrophils Percent Auto 72.6 % (45.5-73.1); Platelet Count Result 324 k/mm3 (150-375); Red Cell Distribution Width 19.3 % (11.5-14.5); White Blood Count 8.4 K/mm3 (4.5-10.0)
[2020-07-24] MEDS: BUDESONIDE RESPULE NEB 0.5 MG/2 ML AMP INHALATION ×2 (08:04→20:34)
[2020-07-24] MEDS: DORNASE ALFA INH SOLN 1 MG/ML 2.5 ML AMP 2.5 MG INHALATION ×2 (08:04→20:34)
--- NOTE | 2020-07-24 08:44 | PCDIET ---
Nutrition Follow-Up Complete: Nutrition Diagnosis: Inadequate infusion of enteral nutrition related to multiple medical conditions as evidenced by NPO status. Nutrition Goal: Patient to meet estimated nutritional needs. Goal met. Patient tolerating Jevity 1.2 at 70mL/hr goal rate via j-tube with 30mL water flush every 4 hours. Given 22 hour daily infusion, this meets estimated needs at 1848kcal (35kcal/kg), 85g protein (1.6g/kg) and 1422mL free water (not including flushes with medications). Noted electrolytes replaced and now within normal limits. G-tube to suction with documented 200mL out so far today. Last recorded weight is 52.7 kg which is increased from last review. Bowel Motility: BM x 1 on 07/23/20. Labs Reviewed: Hgb (11.0), Hct (34.8), Devante Ca (8.88), Na (134), Alb (2.9) Meds Noted: Pulmicort, Pepcid, Reglan, Vancomycin, Cipro, Folic Acid, Atrovent Additional Notes: Unstageable ulcers to right hip and bilateral feet. Will continue to monitor with same goal. Nutrition Monitoring and Evaluation: Follow up every Thursday/Thursday.
[2020-07-24] MEDS: FOLIC ACID 1 MG TABLET FEED TUBE (10:02)
[2020-07-24] MEDS: SILVERGEL (ELTA) 45 ML 1 APPLIC TOPICAL (10:02)
[2020-07-24] MEDS: ENOXAPARIN 40 MG/0.4 ML SYRINGE SUB-Q (10:02)
[2020-07-24] MEDS: FAMOTIDINE 20 MG TABLET FEED TUBE ×2 (10:02→16:27)
--- NOTE | 2020-07-24 12:01 | WPDINFPN2 ---
Progress Note: A&P Assessment and Plan (1) Acute respiratory failure with hypoxemia: Code(s): J96.01 - Acute respiratory failure with hypoxia Status: Acute Assessment and Plan: 1. Resp distress, possible HCAP. Findings resolved, CXR improving. 2. Chronic encephalopathy 3. Bacteriuria REC Vanc #5. Ciprofloxaxcin # 2. Stop IV rx, give ciprofloxacin and doxycycline x 3 days more. Ok discharge planning, will sign off Subjective Date/time seen: 07/24/20 12:01 Interval history: non verbal, eyes open Exam Narrative: Exam Narrative: afebrile Const: General: no acute distress Other: on room air, looks in no respiratory distress whatsoever Neck: Neck: no JVD Resp: Effort & Inspection: normal respiratory effort Auscultation: clear to auscultation bilaterally Cardio: Rate: regular rate Rhythm: regular rhythm Heart sounds: no gallops and no murmurs GI: Inspection: non-distended GI Palp: Yes Soft to palpation and No Tenderness to palpation present (GI) Objective Data Vital Signs Vital Signs: Vital Signs - 24 hr 07/23/20 14:00 07/23/20 14:29 07/23/20 14:34 Temperature Pulse Rate 97 101 H 97 Respiratory Rate 18 18 Blood Pressure Pulse Oximetry 07/23/20 16:00 07/23/20 18:00 07/23/20 19:58 Temperature 36.9 C 36.7 C Pulse Rate 106 H 111 H 104 H Respiratory Rate 24 H 20 Blood Pressure 129/72 131/81 Pulse Oximetry 98 97 07/23/20 20:00 07/23/20 20:14 07/23/20 20:32 Temperature Pulse Rate 95 103 H 102 H Respiratory Rate 20 22 H 22 H Blood Pressure Pulse Oximetry 97 07/23/20 22:00 07/23/20 22:43 07/23/20 23:53 Temperature 36.6 C Pulse Rate 99 102 H Respiratory Rate 14 Blood Pressure 132/78 Pulse Oximetry 88 L 98 07/24/20 00:00 07/24/20 02:00 07/24/20 02:01 Temperature Pulse Rate 99 108 H 107 H Respiratory Rate 14 24 H 22 H Blood Pressure Pulse Oximetry 98 90 07/24/20 04:00 07/24/20 06:00 07/24/20 08:00 Temperature 36.3 C L 36.6 C Pulse Rate 104 H 114 H 109 H Respiratory Rate 20 18 Blood Pressure 129/81 132/85 Pulse Oximetry 96 100 07/24/20 08:06 07/24/20 08:24 Temperature Pulse Rate 108 H 107 H Respiratory Rate 32 H 36 H Blood Pressure Pulse Oximetry 97 Intake/Output Intake/Output: Intake & Output 07/21/20 07/22/20 07/23/20 07/24/20 23:59 23:59 23:59 23:59 Intake Total 2703.3 1953 2403 1389 Output Total 1000 2250 1250 1050 Balance 1703.3 -297 1153 339 Meds/Results Medications: Active Medications Generic Name Dose Route Start Last Admin Trade Name Freq PRN Reason Stop Dose Admin Acetaminophen 650 mg 07/20/20 21:02 Acetaminophen Elixir 325 Mg/10.15 Ml Udc FEED TUBE Q6H PRN Pain Alteplase, Recombinant 2 mg 07/20/20 10:44 07/20/20 15:05 Alteplase 2 Mg Vial (Cathflo) IV PUSH 2 mg ONCE PRN Administration Line Occlusion Budesonide 0.5 mg 07/20/20 20:00 07/24/20 08:04 Budesonide Respule Neb 0.5 Mg/2 Ml Amp INHALATION 0.5 mg Q12HRT JERAMIE Administration Buspirone HCl 10 mg 07/20/20 22:00 07/24/20 05:49 Buspirone Hcl 10 Mg Tablet FEED TUBE 10 mg Q8HR JERAMIE Administration Ciprofloxacin 500 mg 07/24/20 21:00 Ciprofloxacin 500 Mg Tab PO 07/27/20 09:01 Q12HR JERAMIE Diltiazem HCl 60 mg 07/22/20 18:00 07/24/20 05:48 Diltiazem Hcl 60 Mg Tablet FEED TUBE 60 mg Q6HR JERAMIE Administration Dornase Demetris 2.5 mg 07/21/20 08:00 07/24/20 08:04 Dornase Demetris Inh Soln 1 Mg/Ml 2.5 Ml Amp INHALATION 2.5 mg Q12HRT JERAMIE Administration Doxycycline Hyclate 100 mg 07/24/20 21:00 Doxycycline Hyclate 100 Mg Tablet PO 07/27/20 09:01 Q12HR [facility] Enoxaparin Sodium 40 mg 07/21/20 09:00 07/24/20 10:02 Enoxaparin 40 Mg/0.4 Ml Syringe SUB-Q 40 mg DAILY JERAMIE Administration Famotidine 20 mg 07/22/20 17:00 07/24/20 10:02 Famotidine 20 Mg Tablet FEED TUBE 20 mg BID JERAMIE Administration Folic Acid 1 mg 07/21/20 09:00 07/24/20 10:0
--- NOTE | 2020-07-24 14:09 | PM.IMPN ---
Progress Note: A&P Assessment and Plan (1) Acute hypoxemic respiratory failure: Code(s): J96.01 - Acute respiratory failure with hypoxia Status: Acute Assessment and Plan: Patient was hypoxic on admission. Patient does not require oxygen at the alf. He required a NRB mask then HFNC. We were able to wean to room air. Continue supportive care. Continue nebulizer treatments. Continue broad-spectrum antibiotics. Will continue current treatment possible discharge in the morning. (2) Severe sepsis: Code(s): A41.9 - Sepsis, unspecified organism; R65.20 - Severe sepsis without septic shock Status: Acute Assessment and Plan: Present on admission with tachycardia, respiratory failure, tachypnea and leukocytosis. Related to aspiration pneumonia and pyelonephritis. Patient admitted to the ICU. WBC normal now; no fevers. BCx NGTD. UCx growing pseudomonas. Continue nebulizer treatments. . Infectious disease consult noted patient's aunt Prieb antibiotic. (3) SVT (supraventricular tachycardia): Code(s): I47.1 - Supraventricular tachycardia Status: Acute Assessment and Plan: Presumably patient had SVT in the field although when he was slowed down, it appeared to be sinus tachycardia. More likely this is not SVT; suspect more likely sinus tachycardia related to his acute respiratory failure. Patient was on a diltiazem drip but this was stopped. Patient is on diltiazem at the alf and this has been resumed. HR controlled. No acute issues at present time. (4) Pneumonia: Qualifiers: Laterality: unspecified laterality Lung location: unspecified part of lung Pneumonia type: due to unspecified organism Qualified Code(s): J18.9 - Pneumonia, unspecified organism Code(s): J18.9 - Pneumonia, unspecified organism Status: Acute Assessment and Plan: CTA showing no pulmonary emboli but does show widespread tree-in-bud opacities and central lobular nodules with more focal consolidation left upper lobe consistent with multifocal pneumonia. Old trach site dry now. BCx NGTD. MRSA nasal swab positive. Currently on Cipro and Vanco. ID consult noted antibiotics changed. (5) Pyelonephritis: Code(s): N12 - Tubulo-interstitial nephritis, not specified as acute or chronic Status: Acute Assessment and Plan: Patient with chronic Murphy. UA noted consistent with UTI. CT scan shows focal area of attenuation in the right mid kidney which could reflect UTI or pyelonephritis. Urine culture growing pseudomonas that is lipscomb-sensitive. BCx NGTD. Cipro started. (6) Nausea & vomiting: Qualifiers: Vomiting Intractability: non-intractable Vomiting type: unspecified Qualified Code(s): R11.2 - Nausea with vomiting, unspecified Code(s): R11.2 - Nausea with vomiting, unspecified Status: Acute Assessment and Plan: Patient had episode of nausea vomiting the night prior to admission that resulted in aspiration. This is a chronic issue for this patient. Unclear if the nausea vomiting occurs 1st then resulting in aspiration or the nausea vomiting is related to his declining condition from infection. Nothing concerning on the CT scan for bowel pathology. Continue TF. Tolerating well (7) Dysphagia: Qualifiers: Dysphagia type: unspecified Qualified Code(s): R13.10 - Dysphagia, unspecified Code(s): R13.10 - Dysphagia, unspecified Status: Chronic Assessment and Plan: Patient had J-tube placed to try to minimize reflux and aspiration. G-tube (Murphy)for decompression. GI to see to change Murphy out back to G-tube. Continue TF. (8) Encephalopathy chronic: Code(s): G93.49 - Other encephalopathy Status: Chronic Assessment and Plan: Patient with chronic encephalopathy and appears at baseline. (9) COPD (chronic obstructive pulmonary disease)
--- NOTE | 2020-07-24 15:26 | WPDGICN ---
Assessment and Plan Assessment and plan (1) Dysphagia: Qualifiers: Dysphagia type: unspecified Qualified Code(s): R13.10 - Dysphagia, unspecified Code(s): R13.10 - Dysphagia, unspecified Status: Chronic Assessment and Plan: J-tube was placed by surgery to try to minimize aspiration and for feeding, G-tube (Amador) to minimize aspiration which is working ok and only for gastric decompression. I would rather not to exchange it, there is always the possibility that I won't be able to exchange successfully and get access into the stomach. Of course if not working then we could exchange it at a later time. (2) Nausea & vomiting: Qualifiers: Vomiting Intractability: non-intractable Vomiting type: unspecified Qualified Code(s): R11.2 - Nausea with vomiting, unspecified Code(s): R11.2 - Nausea with vomiting, unspecified Status: Acute Assessment and Plan: medical treatment, he is at risk of aspiration (3) Acute on chronic blood loss anemia: Code(s): D62 - Acute posthemorrhagic anemia Status: Acute Assessment and Plan: drop in hemoglobin but no overt gib, no need to proceed with colonoscopy (last BM was normal) and he is not in optimal condition to undergo scope unless any obvious bleeding. will sign off (4) Encephalopathy chronic: Code(s): G93.49 - Other encephalopathy Status: Chronic Assessment and Plan: he is non-verbal and bedridden (5) Pneumonia: Qualifiers: Laterality: unspecified laterality Lung location: unspecified part of lung Pneumonia type: due to unspecified organism Qualified Code(s): J18.9 - Pneumonia, unspecified organism Code(s): J18.9 - Pneumonia, unspecified organism Status: Acute Assessment and Plan: on antibiotics, by ID (6) Nutrition disorder: Code(s): E63.9 - Nutritional deficiency, unspecified Status: Acute (7) Gastrostomy tube dysfunction: Code(s): K94.23 - Gastrostomy malfunction Status: Acute (8) Severe sepsis: Code(s): A41.9 - Sepsis, unspecified organism; R65.20 - Severe sepsis without septic shock Status: Acute Assessment and Plan: treated by primary team GI Consult Note Consult date/time: 07/24/20 15:26 HPI: King Sullivan is a 60 year old male with multiple medical problems including anemia, COPD, with 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 He is nonverbal at baseline and bed ridden, contracted. This times he was brought to ED on 07/20/2020 when he was found in his room at the group home covered with emesis, and respiratory failure and SVT. Admitted to ICU and eventually moved to floor. Chest x-ray reviewed that showed left upper lobe infiltrate. CT chest abdomen and pelvis did not reveal any pulmonary embolism. Widespread tree-in-bud opacities and centrilobular nodules with more focal consolidation in the left upper lobe, consistent with multifocal pneumonia. He also has a G-tube for gastric suction (now in place he has a amador catheter but is working fine). Also hb dropped to 6.4 2 days ago from baseline 9-10, given 2 units prbc. RN reports no signs of GIB, in fact he just had a stool with greenish material, no melena or blood. Review of Systems Review of Systems: ROS unobtainable: Yes unobtainable due to medical condition and unobtainable due to mental status PMFSH Past Medical History Medical History Anemia Anxiety COPD (chronic obstructive pulmonary disease) Disorder of autonomic nervous system Dysphagia With G-Tube placement Encephalopathy chronic History of gastrostomy tube placement Hydrocephalus Hypertension Paroxysmal tachycardia Surgical History Surgical History (Reviewed 07/20/20
[2020-07-25] VITALS (16 sets, daily range): BP systolic 115–135; BP diastolic 65–89; PULSE 101–118; RESP 18–32; TEMP 35.9–36.6; O2SAT 93–100
--- NOTE | 2020-07-25 00:02 | PC.NURSE ---
PATIENT WAS FOUND AT 8PM WITH TUBE FEED STARTING TO COME OUT OF HIS NOSE AND MOUTH, TACHYPNEIC AND DIAPHORETIC. TUBE FEED WAS SHUT OFF AND G-TUBE WAS CHANGED FROM GRAVITY TO LIS. PATIENT HAD 200 OUT OF G-TUBE SINCE 1800. DARION VILLAGRAN PIER RUNNER IS AWARE AND ORDERS PLACED. STAT CHEST X- RAY DONE.
--- NOTE | 2020-07-25 02:01 | PC.NURSE ---
PER TUBE MEDS HELD PER KAYLI CRAWFORDFIBER OPTIC SPLICER NURSE, DARION VILLAGRAN NP.
[2020-07-25] MEDS: IPRATROPIUM BR 0.02% INH SOLN 0.5 MG/2.5 ML VIAL INHALATION ×4 (02:49→20:27)
[2020-07-25] MEDS: CENTRAL LINE FLUSH 10 ML IV PUSH ×3 (06:18→20:38)
[2020-07-25] MEDS: DORNASE ALFA INH SOLN 1 MG/ML 2.5 ML AMP 2.5 MG INHALATION (08:30)
[2020-07-25] MEDS: BUDESONIDE RESPULE NEB 0.5 MG/2 ML AMP INHALATION ×2 (08:31→20:27)
--- NOTE | 2020-07-25 11:42 | PM.IMPN ---
Progress Note: A&P Assessment and Plan (1) Acute hypoxemic respiratory failure: Code(s): J96.01 - Acute respiratory failure with hypoxia Status: Acute Assessment and Plan: Patient was hypoxic on admission. Patient does not require oxygen at the shelter. He required a NRB mask then HFNC. We were able to wean to room air. Continue supportive care. Continue nebulizer treatments. Continue broad-spectrum antibiotics. Will continue current treatment. Consult conference planner for possible shelter placement. (2) Severe sepsis: Code(s): A41.9 - Sepsis, unspecified organism; R65.20 - Severe sepsis without septic shock Status: Acute Assessment and Plan: Present on admission with tachycardia, respiratory failure, tachypnea and leukocytosis. Related to aspiration pneumonia and pyelonephritis. Patient admitted to the ICU. WBC normal now; no fevers. BCx NGTD. UCx growing pseudomonas. Continue nebulizer treatments. . Infectious disease consult noted patient's on antibiotic. (3) SVT (supraventricular tachycardia): Code(s): I47.1 - Supraventricular tachycardia Status: Acute Assessment and Plan: Presumably patient had SVT in the field although when he was slowed down, it appeared to be sinus tachycardia. More likely this is not SVT; suspect more likely sinus tachycardia related to his acute respiratory failure. Patient was on a diltiazem drip but this was stopped. Patient is on diltiazem at the shelter and this has been resumed. HR controlled. No acute issues at present time. (4) Pneumonia: Qualifiers: Laterality: unspecified laterality Lung location: unspecified part of lung Pneumonia type: due to unspecified organism Qualified Code(s): J18.9 - Pneumonia, unspecified organism Code(s): J18.9 - Pneumonia, unspecified organism Status: Acute Assessment and Plan: CTA showing no pulmonary emboli but does show widespread tree-in-bud opacities and central lobular nodules with more focal consolidation left upper lobe consistent with multifocal pneumonia. Old trach site dry now. BCx NGTD. MRSA nasal swab positive. Currently on Cipro and Vanco. ID consult noted antibiotics changed. (5) Pyelonephritis: Code(s): N12 - Tubulo-interstitial nephritis, not specified as acute or chronic Status: Acute Assessment and Plan: Patient with chronic Murphy. UA noted consistent with UTI. CT scan shows focal area of attenuation in the right mid kidney which could reflect UTI or pyelonephritis. Urine culture growing pseudomonas that is lipscomb-sensitive. BCx NGTD. Cipro started. (6) Nausea & vomiting: Qualifiers: Vomiting Intractability: non-intractable Vomiting type: unspecified Qualified Code(s): R11.2 - Nausea with vomiting, unspecified Code(s): R11.2 - Nausea with vomiting, unspecified Status: Acute Assessment and Plan: Patient had episode of nausea vomiting the night prior to admission that resulted in aspiration. This is a chronic issue for this patient. Unclear if the nausea vomiting occurs 1st then resulting in aspiration or the nausea vomiting is related to his declining condition from infection. Nothing concerning on the CT scan for bowel pathology. Continue TF. Tolerating well (7) Dysphagia: Qualifiers: Dysphagia type: unspecified Qualified Code(s): R13.10 - Dysphagia, unspecified Code(s): R13.10 - Dysphagia, unspecified Status: Chronic Assessment and Plan: Patient had J-tube placed to try to minimize reflux and aspiration. G-tube (Murphy)for decompression. GI to see to change Murphy out back to G-tube. Continue TF. (8) Encephalopathy chronic: Code(s): G93.49 - Other encephalopathy Status: Chronic Assessment and Plan: Patient with chronic encephalopathy and appears at baseline. (9) COPD (chronic obstruct
[2020-07-25] MEDS: dilTIAZem HCL 60 MG TABLET FEED TUBE ×3 (12:05→23:11)
[2020-07-25] MEDS: CIPROFLOXACIN 500 MG TAB PO ×2 (12:05→20:37)
[2020-07-25] MEDS: DOXYCYCLINE HYCLATE 100 MG TABLET PO ×2 (12:06→20:36)
[2020-07-25] MEDS: FOLIC ACID 1 MG TABLET FEED TUBE (12:06)
[2020-07-25] MEDS: METOCLOPRAMIDE HCL 5 MG TABLET FEED TUBE ×3 (12:06→20:37)
[2020-07-25] MEDS: FAMOTIDINE 20 MG TABLET FEED TUBE ×2 (12:06→18:05)
[2020-07-25] MEDS: ENOXAPARIN 40 MG/0.4 ML SYRINGE SUB-Q (12:06)
[2020-07-25] MEDS: SILVERGEL (ELTA) 45 ML 1 APPLIC TOPICAL (12:06)
--- NOTE | 2020-07-25 14:00 | WPDGIPROGNO ---
Progress Note: A&P Assessment and Plan (1) Nausea & vomiting: Qualifiers: Vomiting Intractability: non-intractable Vomiting type: unspecified Qualified Code(s): R11.2 - Nausea with vomiting, unspecified Code(s): R11.2 - Nausea with vomiting, unspecified Status: Acute Assessment and Plan: repeat CXR/KUB without any new changes. he is comfortable now given mentation and ongoing situation, he will always be at risk of aspiration despite decompression with G-tube. He is on aspiration precautions though ok to resume J-tube feeding again, 30 ml/h and advance as tolerated (2) Pneumonia: Qualifiers: Laterality: unspecified laterality Lung location: unspecified part of lung Pneumonia type: due to unspecified organism Qualified Code(s): J18.9 - Pneumonia, unspecified organism Code(s): J18.9 - Pneumonia, unspecified organism Status: Acute Assessment and Plan: treated (3) Encephalopathy chronic: Code(s): G93.49 - Other encephalopathy Status: Chronic Assessment and Plan: he is bedridden and non-verbal (4) Acute respiratory failure with hypoxia and hypercarbia: Code(s): J96.01 - Acute respiratory failure with hypoxia; J96.02 - Acute respiratory failure with hypercapnia Status: Acute Assessment and Plan: improved, at baseline now (5) Dysphagia: Qualifiers: Dysphagia type: unspecified Qualified Code(s): R13.10 - Dysphagia, unspecified Code(s): R13.10 - Dysphagia, unspecified Status: Chronic Assessment and Plan: G-tube (using Amador catheter) in right position and seems to be working ok, use for intermittent gastric decompression. No need to exchange. Subjective Date/time seen: 07/25/20 14:00 Interval history: RN reported tht patient last night had some emesis and concerned for more aspiration but CXR and KUB without any new changes, feeding was on hold again. Review of Systems Review of Systems: All systems reviewed & are unremarkable except as noted in HPI and below Exam Const: General: ill appearing chronically Nutritional Appearance: malnourished Other: contractures HENMT: General nose exam: Normal nares present Eyes: General: appearance normal, both eyes and all related structures Neck: Neck: no JVD Resp: Auscultation: diminished lung sounds Cardio: Rate: tachycardic GI: GI Palp: Yes Soft to palpation Auscultation: normal bowel sounds Other: J-tube in place, also G-tube (amador instead) but working fine, no signs of infection. Stoma looks ok Skin: General skin exam: no erythema Neuro: Other: non-verbal, contractures Psych: Other: unable to assess Objective Data Vital Signs Vital Signs: Vital Signs - 24 hr 07/24/20 16:00 07/24/20 18:00 07/24/20 20:00 Temperature 99.7 F H 98.0 F Pulse Rate 123 H 118 H 114 H Respiratory Rate 18 28 H Blood Pressure 135/89 139/80 Pulse Oximetry 100 97 07/24/20 20:35 07/24/20 20:37 07/24/20 20:51 Temperature Pulse Rate 125 H 119 H Respiratory Rate 24 H 24 H Blood Pressure Pulse Oximetry 96 97 07/24/20 21:05 07/24/20 21:11 07/24/20 22:00 Temperature Pulse Rate 119 H 113 H Respiratory Rate 22 H 44 H Blood Pressure Pulse Oximetry 96 07/24/20 23:50 07/25/20 00:00 07/25/20 02:00 Temperature 97.9 F Pulse Rate 110 H 113 H 112 H Respiratory Rate 32 H 32 H Blood Pressure 121/77 Pulse Oximetry 100 100 07/25/20 02:51 07/25/20 04:00 07/25/20 06:00 Temperature 97.7 F Pulse Rate 115 H 109 H 114 H Respiratory Rate 22 H 20 Blood Pressure 126/78 Pulse Oximetry 96 07/25/20 08:00 07/25/20 08:30 07/25/20 08:40 Temperature 97.9 F Pulse Rate 116 H 113 H 110 H Respiratory Rate 28 H 20 20 Blood Pressure 128/82 Pulse Oximetry 100 93 07/25/20 12:00 Temperature 97.2 F L Pulse Rate 118 H Respiratory Rate 24 H Blood Pressure 125/76 Pulse Oximetry 99 Intake/Output Intake/Ou
--- NOTE | 2020-07-25 14:43 | PCPTNOTE ---
PT Discharge note: Attempted to see patient this afternoon for PT evaluation, patient unable to be seen secondary to unresponsive and UE's and LE's in contracted positions. Per RN and chart this is patient's baseline and not appropriate for skilled PT at this time.
[2020-07-25] MEDS: busPIRone HCL 10 MG TABLET FEED TUBE ×2 (18:05→20:37)
--- NOTE | 2020-07-25 18:59 | PC.NURSE ---
Started patient tube feeding at 18:10, 18:25 patient desated to 80's O2 sat. Patient skin was bright red and diaphoretic. Stopped tube feeding and cleared line. Called charge nurse, Dr. Villegas, Dr. Mehta. Order to stop tube feeding and notify dietary. Patient recovered and is stable with no other intervention.
[2020-07-25] MEDS: LORazepam (*CRX) 0.5 MG TABLET 0.25 MG FEED TUBE (20:37)
--- NOTE | 2020-07-25 22:45 | PC.NURSE ---
This patient, King uSllivan, was transferred to [facility] on 07/25/20 at 2245. Personal belongings sent with patient. Report given to Theresa. Appropriate documentation sent with patient.
[2020-07-26] VITALS (13 sets, daily range): BP systolic 127–139; BP diastolic 74–84; PULSE 92–120; RESP 16–24; TEMP 35.6–36.7; O2SAT 96–100
[2020-07-26] MEDS: IPRATROPIUM BR 0.02% INH SOLN 0.5 MG/2.5 ML VIAL INHALATION ×4 (01:22→21:05)
[2020-07-26] MEDS: METOCLOPRAMIDE HCL 5 MG TABLET FEED TUBE (05:49)
[2020-07-26] MEDS: busPIRone HCL 10 MG TABLET FEED TUBE ×3 (05:49→20:57)
[2020-07-26] MEDS: dilTIAZem HCL 60 MG TABLET FEED TUBE ×4 (05:49→23:31)
[2020-07-26] MEDS: CENTRAL LINE FLUSH 10 ML IV PUSH ×3 (05:50→20:57)
[2020-07-26] MEDS: BUDESONIDE RESPULE NEB 0.5 MG/2 ML AMP INHALATION ×2 (07:37→21:05)
[2020-07-26] MEDS: DORNASE ALFA INH SOLN 1 MG/ML 2.5 ML AMP 2.5 MG INHALATION ×2 (08:10→21:06)
[2020-07-26] MEDS: ENOXAPARIN 40 MG/0.4 ML SYRINGE SUB-Q (09:06)
[2020-07-26] MEDS: FOLIC ACID 1 MG TABLET FEED TUBE (09:12)
[2020-07-26] MEDS: DOXYCYCLINE HYCLATE 100 MG TABLET PO ×2 (09:12→20:24)
[2020-07-26] MEDS: FAMOTIDINE 20 MG TABLET FEED TUBE ×2 (09:12→18:17)
[2020-07-26] MEDS: CIPROFLOXACIN 500 MG TAB PO ×2 (09:12→20:23)
--- NOTE | 2020-07-26 10:00 | PM.IMPN ---
Progress Note: A&P Assessment and Plan (1) Nausea & vomiting: Qualifiers: Vomiting Intractability: non-intractable Vomiting type: unspecified Qualified Code(s): R11.2 - Nausea with vomiting, unspecified Code(s): R11.2 - Nausea with vomiting, unspecified Status: Acute Assessment and Plan: Patient had episode of nausea vomiting the night prior to admission that resulted in aspiration. This is a chronic issue for this patient. Unclear if the nausea vomiting occurs 1st then resulting in aspiration or the nausea vomiting is related to his declining condition from infection. Nothing concerning on the CT scan for bowel pathology. Patient had a recurrent episode with TF coming from his nose despite GTube being to gravity. Tire Bladder Maker to provide TF with more fiber. TF to be resumed after dietary evaluation. Change Reglan to IV. (2) Dysphagia: Qualifiers: Dysphagia type: unspecified Qualified Code(s): R13.10 - Dysphagia, unspecified Code(s): R13.10 - Dysphagia, unspecified Status: Chronic Assessment and Plan: Patient had J-tube placed to try to minimize reflux and aspiration. G-tube (Murphy)for decompression. GI following. Patient still with significnat reflux/aspiration despite GTube to gravity; GTube now to suction. As above. (3) Acute hypoxemic respiratory failure: Code(s): J96.01 - Acute respiratory failure with hypoxia Status: Acute Assessment and Plan: Patient was hypoxic on admission. Patient does not require oxygen at the senior care. He required a NRB mask then HFNC. We were able to wean to room air. Related to aspiration PNA/Pneumonitis. Continue supportive care. Continue nebulizer treatments. Continue antibiotics. Continue current treatment. Family requesting different NH at discharge and this is being arranged. (4) Anemia: Code(s): D64.9 - Anemia, unspecified Status: Acute Assessment and Plan: Patient with chronic microcytic anemia. Hgb 10.1 on admission but dropped to 6.4 on 07/22. Guaiac positive. Iron studies in May consistent with anemia of chronic disease. Transfused 2U PRBC. Hgb stable. GI inpute appreciated. Repat labs tomorrow. Transfuse as necessary. (5) Severe sepsis: Code(s): A41.9 - Sepsis, unspecified organism; R65.20 - Severe sepsis without septic shock Status: Acute Assessment and Plan: Present on admission with tachycardia, respiratory failure, tachypnea and leukocytosis. Related to aspiration pneumonia and pyelonephritis. Patient admitted to the ICU. WBC normal now; no fevers. BCx negative. UCx growing pseudomonas. Continue nebulizer treatments and abx. (6) SVT (supraventricular tachycardia): Code(s): I47.1 - Supraventricular tachycardia Status: Acute Assessment and Plan: Presumably patient had SVT in the field although when he was slowed down, it appeared to be sinus tachycardia. More likely this is not SVT; suspect more likely sinus tachycardia related to his acute respiratory failure. Patient was on a diltiazem drip but this was stopped. Patient is on diltiazem at the senior care and this has been resumed. HR controlled. Follow clinically. (7) Pneumonia: Qualifiers: Laterality: unspecified laterality Lung location: unspecified part of lung Pneumonia type: due to unspecified organism Qualified Code(s): J18.9 - Pneumonia, unspecified organism Code(s): J18.9 - Pneumonia, unspecified organism Status: Acute Assessment and Plan: CTA showing no pulmonary emboli but does show widespread tree-in-bud opacities and central lobular nodules with more focal consolidation left upper lobe consistent with multifocal pneumonia. BCx negative. MRSA nasal swab positive. Currently on Cipro and Doxy. Appreciate ID input (8) Pyelonephritis: Code(s): N12 - Tubulo-interstitial nephritis, not s
--- NOTE | 2020-07-26 10:00 | WPDGIPROGNO ---
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 Status: Acute Assessment and Plan: history consistent with early dumping syndrome (nausea, cramps and vasomotor symptoms 15-30 minutes after J feeding), I talked to sales process manager to try another formula with more fiber and protein and low carbohydrates, also frequent small meals should help), ok to resume feeding again using J tube (2) Nausea & vomiting: Qualifiers: Vomiting Intractability: non-intractable Vomiting type: unspecified Qualified Code(s): R11.2 - Nausea with vomiting, unspecified Code(s): R11.2 - Nausea with vomiting, unspecified Status: Acute Assessment and Plan: comfortable now given mentation and ongoing situation, he will always be at risk of aspiration despite decompression with G-tube. He is on aspiration precautions though (3) Pneumonia: Qualifiers: Laterality: unspecified laterality Lung location: unspecified part of lung Pneumonia type: due to unspecified organism Qualified Code(s): J18.9 - Pneumonia, unspecified organism Code(s): J18.9 - Pneumonia, unspecified organism Status: Acute Assessment and Plan: treated (4) Encephalopathy chronic: Code(s): G93.49 - Other encephalopathy Status: Chronic Assessment and Plan: he is bedridden and non-verbal but awake (5) Acute respiratory failure with hypoxia and hypercarbia: Code(s): J96.01 - Acute respiratory failure with hypoxia; J96.02 - Acute respiratory failure with hypercapnia Status: Acute Assessment and Plan: improved, at baseline now (6) Dysphagia: Qualifiers: Dysphagia type: unspecified Qualified Code(s): R13.10 - Dysphagia, unspecified Code(s): R13.10 - Dysphagia, unspecified Status: Chronic Assessment and Plan: G-tube (using Amador catheter) in right position and seems to be working ok, use for intermittent gastric decompression. No need to exchange. Subjective Date/time seen: 07/26/20 10:00 Interval history: RN reports that yesterday after starting again his J-feeding noted flushing, patient became uncomfortable and feeding on hold again. He is comfortable now, awake. Review of Systems Review of Systems: All systems reviewed & are unremarkable except as noted in HPI and below Exam Const: General: ill appearing chronically Nutritional Appearance: malnourished Other: contractures HENMT: General nose exam: Normal nares present Eyes: General: appearance normal, both eyes and all related structures Neck: Neck: no JVD Resp: Auscultation: diminished lung sounds Cardio: Rate: tachycardic GI: GI Palp: Yes Soft to palpation Auscultation: normal bowel sounds Other: J-tube in place, also G-tube (amador instead) but working fine, no signs of infection. Stoma looks ok Skin: General skin exam: no erythema Neuro: Other: non-verbal, contractures Psych: Other: unable to assess Objective Data Vital Signs Vital Signs: Vital Signs - 24 hr 07/25/20 12:00 07/25/20 14:25 07/25/20 14:35 Temperature 97.2 F L Pulse Rate 118 H 110 H 109 H Respiratory Rate 24 H 20 20 Blood Pressure 125/76 Pulse Oximetry 99 07/25/20 16:00 07/25/20 20:00 07/25/20 20:27 Temperature 97.7 F 96.8 F L Pulse Rate 104 H 107 H 103 H Respiratory Rate 26 H 18 18 Blood Pressure 115/65 133/89 Pulse Oximetry 97 95 95 07/25/20 20:33 07/25/20 23:14 07/26/20 01:22 Temperature 96.6 F L Pulse Rate 112 H 101 H 99 Respiratory Rate 24 H 20 18 Blood Pressure 135/76 Pulse Oximetry 95 07/26/20 01:30 07/26/20 05:29 07/26/20 07:38 Temperature 98 F Pulse Rate 100 107 H 104 H Respiratory Rate 18 20 22 H Blood Pressure 139/83 Pulse Oximetry 100 100 07/26/20 07:55 Temperature Pulse Rate 103 H Respiratory Rate 24 H Blood Pressure Pulse Oximetry Intake/Output Intake/Output: Intake
[2020-07-26] MEDS: SILVERGEL (ELTA) 45 ML 1 APPLIC TOPICAL (10:41)
--- NOTE | 2020-07-26 11:57 | PCNFU ---
Nutrition Follow-Up Complete: Inadequate infusion of enteral nutrition related to multiple medical conditions as evidenced by NPO status. Goal: Patient to meet estimated nutritional needs. Progressing towards goal. We will continue current goal. Pt current nutrition is Glucerna 1.2 at 70 ml/hr. Last recorded weight is 46.6 kg, down from 51.1 kg. Bowel Motility:+BM reported 07/26 Labs Reviewed:No new labs to report. Meds Noted:Pulmicort, Cipro,Folic Acid, Reglan,Atrovent, Lovenox,Buspar, Vibramycin. Additional Notes: Nutrition consult. Call today from nursing, stating patient has not been tolerating J tube feedings of Jevity 1.2. Nursing reporting tube feeding coming from nose, tube feeding had been put on hold until evaluated. Spoke with GI today, dumping syndrome as been identified and discussion of low carb, high protein formula. orders for Glucerna 1.2 at 70 ml/hr providing 176 gms CHO vs 260 gms CHO from Jevity 1.2 and 92 gms protein vs 85 gms protein on Jevity 1.2. Reglan has also been ordered IV push. Monitoring: Follow up every Thursday/Thursday.
[2020-07-26] MEDS: METOCLOPRAMIDE HCL INJ 10 MG/2 ML VIAL 5 MG IV PUSH ×3 (13:03→23:31)
[2020-07-26] MEDS: LORazepam (*CRX) 0.5 MG TABLET 0.25 MG FEED TUBE (20:24)
[2020-07-27] VITALS (11 sets, daily range): BP systolic 120–129; BP diastolic 65–72; PULSE 101–118; RESP 14–32; TEMP 36.1–37.1; O2SAT 95–98
[2020-07-27 00:37] LABS: NIL 0.02 IU/mL; Quantiferon TB Plus, 1T NEGATIVE (NEGATIVE)
[2020-07-27] MEDS: IPRATROPIUM BR 0.02% INH SOLN 0.5 MG/2.5 ML VIAL INHALATION ×2 (02:31→07:49)
[2020-07-27] MEDS: CENTRAL LINE FLUSH 20 ML IV PUSH (05:06)
[2020-07-27] MEDS: METOCLOPRAMIDE HCL INJ 10 MG/2 ML VIAL 5 MG IV PUSH ×4 (05:06→23:26)
[2020-07-27] MEDS: dilTIAZem HCL 60 MG TABLET FEED TUBE ×4 (05:06→23:26)
[2020-07-27] MEDS: CENTRAL LINE FLUSH 10 ML IV PUSH ×3 (05:06→20:54)
[2020-07-27] MEDS: busPIRone HCL 10 MG TABLET FEED TUBE ×3 (05:06→20:54)
[2020-07-27 05:17] LABS: Basophils Percent Auto 0.3 % (0.2-1.2); Eosinophils Absolute Auto 0.5 K/mm3 (0-0.3); Eosinophils Percent Auto 5.3 % (0-4.4); Hematocrit 37.5 % (42.0-52.0); Hemoglobin 11.7 g/dL (14.0-18.0); Immature Granulocyte Absolute 0.06 K/mm3 (0.00-0.031); Immature Granulocyte Percent A 0.6 % (0-0.5); Lymphocytes Absolute Auto 1.17 K/mm3 (0.9-3.2); Lymphocytes Percent Auto 12.3 % (18.3-44.2); Mean Corpuscular HGB Conc 31.2 g/dl (32-36); Mean Corpuscular Hemoglobin 24.9 pg (26-34); Mean Platelet Volume 10.2 fl (7.4-10.4); Monocytes Absolute Auto 0.9 K/mm3 (0.1-0.6); Monocytes Percent Auto 9.6 % (2.6-8.5); Neutrophils Absolute Auto 6.8 K/mm3 (1.3-6.7); Neutrophils Percent Auto 71.9 % (45.5-73.1); Platelet Count Result 396 k/mm3 (150-375); Red Blood Count 4.69 M/mm3 (4.6-6.20); Red Cell Distribution Width 20.6 % (11.5-14.5); White Blood Count 9.5 K/mm3 (4.5-10.0)
[2020-07-27 05:38] LABS: Alanine Aminotransferase 12 U/L (4-50); Albumin Level 3.3 g/dL (3.5-5.1); Alkaline Phosphatase 146 U/L (38-126); Anion Gap 7 mmol/L (8-16); Aspartate Amino Transferase 21 U/L (17-59); Bilirubin,Total 0.5 mg/dL (0.2-1.3); Blood Urea Nitrogen 16 mg/dL (9-20); Calcium 8.5 mg/dL (8.4-10.2); Carbon Dioxide 27 mmol/L (22-30); Chloride 105 mmol/L (98-107); Estimated CRCL calculation 72 ml/min; Estimated Glomerular Filt Rate > 60; Glucose 112 mg/dL (75-110); Magnesium 1.9 mg/dL (1.6-2.3); Phosphorus 3.9 mg/dL (2.5-4.5); Potassium 4.2 mmol/L (3.4-5.0); Sodium 139 mmol/L (137-145)
[2020-07-27] MEDS: DORNASE ALFA INH SOLN 1 MG/ML 2.5 ML AMP 2.5 MG INHALATION ×2 (07:50→21:22)
[2020-07-27] MEDS: BUDESONIDE RESPULE NEB 0.5 MG/2 ML AMP INHALATION ×2 (07:50→21:22)
[2020-07-27] MEDS: ENOXAPARIN 40 MG/0.4 ML SYRINGE SUB-Q (09:01)
[2020-07-27] MEDS: FAMOTIDINE 20 MG TABLET FEED TUBE ×2 (09:01→17:06)
[2020-07-27] MEDS: DOXYCYCLINE HYCLATE 100 MG TABLET PO (09:01)
[2020-07-27] MEDS: CIPROFLOXACIN 500 MG TAB PO (09:01)
[2020-07-27] MEDS: FOLIC ACID 1 MG TABLET FEED TUBE (09:01)
[2020-07-27] MEDS: SILVERGEL (ELTA) 45 ML 1 APPLIC TOPICAL (09:02)
--- NOTE | 2020-07-27 11:41 | PM.IMPN ---
Progress Note: A&P Assessment and Plan (1) Nausea & vomiting: Qualifiers: Vomiting Intractability: non-intractable Vomiting type: unspecified Qualified Code(s): R11.2 - Nausea with vomiting, unspecified Code(s): R11.2 - Nausea with vomiting, unspecified Status: Acute Assessment and Plan: Patient had episode of nausea vomiting the night prior to admission that resulted in aspiration. This is a chronic issue for this patient. Unclear if the nausea vomiting occurs 1st then resulting in aspiration or the nausea vomiting is related to his declining condition from infection. Nothing concerning on the CT scan for bowel pathology. Patient had a recurrent episode with TF coming from his nose despite GTube being to gravity on the evening of 07/24. Television Repairman provided TF with more fiber. TF resumed and patient toelrating but still with 650mL output from GTube. Monitor output and change back to gravit drainage when output improves. Continue Reglan to IV. (2) Dysphagia: Qualifiers: Dysphagia type: unspecified Qualified Code(s): R13.10 - Dysphagia, unspecified Code(s): R13.10 - Dysphagia, unspecified Status: Chronic Assessment and Plan: Patient had J-tube placed to try to minimize reflux and aspiration. G-tube (Murphy)for decompression. GI following. Patient was having significant reflux/aspiration despite GTube to gravity so changed to suction. As above. (3) Acute hypoxemic respiratory failure: Code(s): J96.01 - Acute respiratory failure with hypoxia Status: Acute Assessment and Plan: Patient was hypoxic on admission. Patient does not require oxygen at the senior care. He required a NRB mask then HFNC. We were able to wean to room air. Related to aspiration PNA/Pneumonitis. Continue supportive care. Change nebulizer treatments to prn. Completed antibiotics. Continue current treatment. Family requesting different NH at discharge and this is being arranged. (4) Anemia: Code(s): D64.9 - Anemia, unspecified Status: Acute Assessment and Plan: Patient with chronic microcytic anemia. Hgb 10.1 on admission but dropped to 6.4 on 07/22. Guaiac positive. Iron studies in May consistent with anemia of chronic disease. Transfused 2U PRBC 07/22. Hgb stable since. GI input appreciated. Follow HH periodically. Transfuse as necessary. (5) Severe sepsis: Code(s): A41.9 - Sepsis, unspecified organism; R65.20 - Severe sepsis without septic shock Status: Acute Assessment and Plan: Present on admission with tachycardia, respiratory failure, tachypnea and leukocytosis. Related to aspiration pneumonia and pyelonephritis. Patient admitted to the ICU. WBC normal now; no fevers. BCx negative. UCx growing pseudomonas. Completed abx yesterday. (6) SVT (supraventricular tachycardia): Code(s): I47.1 - Supraventricular tachycardia Status: Acute Assessment and Plan: Presumably patient had SVT in the field although when he was slowed down, it appeared to be sinus tachycardia. More likely this is not SVT; suspect more likely sinus tachycardia related to his acute respiratory failure. Patient was on a diltiazem drip but this was stopped. Patient is on diltiazem at the senior care and this has been resumed. HR controlled. Follow clinically. (7) Pneumonia: Qualifiers: Laterality: unspecified laterality Lung location: unspecified part of lung Pneumonia type: due to unspecified organism Qualified Code(s): J18.9 - Pneumonia, unspecified organism Code(s): J18.9 - Pneumonia, unspecified organism Status: Acute Assessment and Plan: CTA showing no pulmonary emboli but does show widespread tree-in-bud opacities and central lobular nodules with more focal consolidation left upper lobe consistent with multifocal pneumonia. COVID and influenza negative. TB Gold negat
--- NOTE | 2020-07-27 12:03 | PCNFU ---
Nutrition Follow-Up Complete: Inadequate infusion of enteral nutrition related to multiple medical conditions as evidenced by NPO status. Goal:Patient to meet estimated nutritional needs. Progressing towards goal. We will continue current goal. Pt current nutrition is Glucerna 1.2 at 70 ml/hr Last recorded weight is 47 kg-stable. Bowel Motility:+BM reported 07/26 Labs Reviewed:Glu 112,Cr 0.6,Alb 3.3 Meds Noted:Lovenox, Reglan,Atrovent, Cipro, Folic Acid, Pepsid,Vibramycin. Additional Notes: Nutrition follow up today. Patient is tolerating J tube feeding which had changed from Jevity 1.2 to Glucerna 1.2@ 70 ml/hr, providing patient with 1848 kcals and 92 gms protein. Patient had 650 ml output today. Patient continues on IV push Reglan. Agree with diet orders. Monitoring: Follow up every Thursday/Thursday
--- NOTE | 2020-07-27 14:17 | WPDGIPROGNO ---
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 Status: Acute Assessment and Plan: probably recent events can be multifactorial and I wonder if had some component of early dumping syndrome discussed with visual coordinator and formula was changed, yesterday and today tolerating more, keep using J tube feeding and G-tube as needed for decompression will follow from afar, please call if questions (2) Nausea & vomiting: Qualifiers: Vomiting Intractability: non-intractable Vomiting type: unspecified Qualified Code(s): R11.2 - Nausea with vomiting, unspecified Code(s): R11.2 - Nausea with vomiting, unspecified Status: Acute Assessment and Plan: comfortable now given mentation and ongoing situation, he will always be at risk of aspiration despite decompression with G-tube as needed. He is on aspiration precautions though (3) Pneumonia: Qualifiers: Laterality: unspecified laterality Lung location: unspecified part of lung Pneumonia type: due to unspecified organism Qualified Code(s): J18.9 - Pneumonia, unspecified organism Code(s): J18.9 - Pneumonia, unspecified organism Status: Acute Assessment and Plan: treated (4) Encephalopathy chronic: Code(s): G93.49 - Other encephalopathy Status: Chronic Assessment and Plan: he is bedridden and non-verbal but awake (5) Acute respiratory failure with hypoxia and hypercarbia: Code(s): J96.01 - Acute respiratory failure with hypoxia; J96.02 - Acute respiratory failure with hypercapnia Status: Acute Assessment and Plan: improved, at baseline now (6) Dysphagia: Qualifiers: Dysphagia type: unspecified Qualified Code(s): R13.10 - Dysphagia, unspecified Code(s): R13.10 - Dysphagia, unspecified Status: Chronic Assessment and Plan: G-tube (using Amador catheter) in right position and seems to be working ok, use for intermittent gastric decompression. No need to exchange. Subjective Date/time seen: 07/27/20 14:17 Interval history: tolerating new formula at goal 70ml/h, RN reports that he looks better and no more intolerance with feeding. Yesterday had ~ 600ml gastric residual but today minimal. Review of Systems Review of Systems: All systems reviewed & are unremarkable except as noted in HPI and below Exam Const: General: ill appearing chronically Nutritional Appearance: malnourished Other: contractures HENMT: General nose exam: Normal nares present Eyes: General: appearance normal, both eyes and all related structures Neck: Neck: no JVD Resp: Auscultation: diminished lung sounds Cardio: Rate: tachycardic GI: GI Palp: Yes Soft to palpation Auscultation: normal bowel sounds Other: J-tube in place, also G-tube (amador instead) but working fine, no signs of infection. Stoma looks ok Skin: General skin exam: no erythema Neuro: Other: non-verbal, contractures Psych: Other: unable to assess Objective Data Vital Signs Vital Signs: Vital Signs - 24 hr 07/26/20 17:24 07/26/20 19:26 07/26/20 21:08 Temperature 96.2 F L 98.1 F Pulse Rate 115 H 120 H 105 H Respiratory Rate 18 18 22 H Blood Pressure 127/84 137/74 Pulse Oximetry 98 96 96 07/26/20 21:10 07/27/20 00:00 07/27/20 02:31 Temperature Pulse Rate 120 H 116 H 102 H Respiratory Rate 24 H 20 22 H Blood Pressure 120/65 Pulse Oximetry 97 07/27/20 02:39 07/27/20 05:46 07/27/20 07:51 Temperature 97.9 F Pulse Rate 101 H 114 H 117 H Respiratory Rate 22 H 22 H 16 Blood Pressure 129/72 Pulse Oximetry 98 95 07/27/20 08:01 Temperature Pulse Rate 108 H Respiratory Rate 16 Blood Pressure Pulse Oximetry Intake/Output Intake/Output: Intake & Output 07/24/20 07/25/20 07/26/20 07/27/20 23:59 23:59 23:59 23:59 Intake Total 2177 520 Output Total 1900 1200 900 850 Balance 428 -[phone] -258
[2020-07-27] MEDS: LORazepam (*CRX) 0.5 MG TABLET 0.25 MG FEED TUBE (20:54)
[2020-07-28] VITALS (7 sets, daily range): BP systolic 108–134; BP diastolic 61–80; PULSE 104–113; RESP 14–22; TEMP 36.6–37; O2SAT 94–97
[2020-07-28] MEDS: dilTIAZem HCL 60 MG TABLET FEED TUBE ×3 (05:08→18:29)
[2020-07-28] MEDS: busPIRone HCL 10 MG TABLET FEED TUBE ×3 (05:08→21:01)
[2020-07-28] MEDS: CENTRAL LINE FLUSH 10 ML IV PUSH ×3 (05:09→21:01)
[2020-07-28] MEDS: METOCLOPRAMIDE HCL INJ 10 MG/2 ML VIAL 5 MG IV PUSH ×3 (05:09→18:30)
[2020-07-28] MEDS: DORNASE ALFA INH SOLN 1 MG/ML 2.5 ML AMP 2.5 MG INHALATION ×2 (07:08→20:15)
[2020-07-28] MEDS: BUDESONIDE RESPULE NEB 0.5 MG/2 ML AMP INHALATION ×2 (07:08→20:14)
[2020-07-28] MEDS: FOLIC ACID 1 MG TABLET FEED TUBE (10:40)
[2020-07-28] MEDS: SILVERGEL (ELTA) 45 ML 1 APPLIC TOPICAL (10:40)
[2020-07-28] MEDS: ENOXAPARIN 40 MG/0.4 ML SYRINGE SUB-Q (10:40)
[2020-07-28] MEDS: FAMOTIDINE 20 MG TABLET FEED TUBE ×2 (10:40→18:30)
--- NOTE | 2020-07-28 15:59 | P.PNIM_ITS ---
Progress Note: A&P Assessment and Plan (1) Nausea & vomiting: Qualifiers: Vomiting Intractability: non-intractable Vomiting type: unspecified Qualified Code(s): R11.2 - Nausea with vomiting, unspecified Code(s): R11.2 - Nausea with vomiting, unspecified Status: Acute Assessment and Plan: Patient had episode of nausea vomiting the night prior to admission that resulted in aspiration. This is a chronic issue for this patient. Unclear if the nausea vomiting occurs 1st then resulting in aspiration or the nausea vomiting is related to his declining condition from infection. Nothing concerning on the CT scan for bowel pathology. Patient had a recurrent episode with TF coming from his nose despite GTube being to gravity on the evening of 07/24. Jamb Cutter provided TF with more fiber. TF resumed and patient toelrating but still with 650mL output from GTube. Monitor output and change back to gravit drainage when output improves. Continue Reglan to IV. (2) Dysphagia: Qualifiers: Dysphagia type: unspecified Qualified Code(s): R13.10 - Dysphagia, unspecified Code(s): R13.10 - Dysphagia, unspecified Status: Chronic Assessment and Plan: Patient had J-tube placed to try to minimize reflux and aspiration. G-tube (Murphy)for decompression. GI following. Patient was having significant reflux/aspiration despite GTube to gravity so changed to suction. As above. (3) Acute hypoxemic respiratory failure: Code(s): J96.01 - Acute respiratory failure with hypoxia Status: Acute Assessment and Plan: Patient was hypoxic on admission. Patient does not require oxygen at the [facility]. He required a NRB mask then HFNC. We were able to wean to room air. Related to aspiration PNA/Pneumonitis. Continue supportive care. Change nebulizer treatments to prn. Completed antibiotics. Continue current treatment. Family requesting different NH at discharge and this is being arranged. (4) Anemia: Code(s): D64.9 - Anemia, unspecified Status: Acute Assessment and Plan: Patient with chronic microcytic anemia. Hgb 10.1 on admission but dropped to 6.4 on 07/22. Guaiac positive. Iron studies in May consistent with anemia of chronic disease. Transfused 2U PRBC 07/22. Hgb stable since. GI input appreciated. Follow HH periodically. Transfuse as necessary. (5) Severe sepsis: Code(s): A41.9 - Sepsis, unspecified organism; R65.20 - Severe sepsis without septic shock Status: Acute Assessment and Plan: Present on admission with tachycardia, respiratory failure, tachypnea and leukocytosis. Related to aspiration pneumonia and pyelonephritis. Patient admitted to the ICU. WBC normal now; no fevers. BCx negative. UCx growing pseudomonas. Completed abx yesterday. (6) SVT (supraventricular tachycardia): Code(s): I47.1 - Supraventricular tachycardia Status: Acute Assessment and Plan: Presumably patient had SVT in the field although when he was slowed down, it appeared to be sinus tachycardia. More likely this is not SVT; suspect more likely sinus tachycardia related to his acute respiratory failure. Patient was on a diltiazem drip but this was stopped. Patient is on diltiazem at the [facility] and this has been resumed. HR controlled. Follow clinically. (7) Pneumonia: Qualifiers: Laterality: unspecified laterality Lung location: unspecified part of lung Pneumonia type: due to unspecified organism Qualified Code(s): J18.9 - Pneumonia, unspecified organism
[2020-07-28] MEDS: LORazepam (*CRX) 0.5 MG TABLET 0.25 MG FEED TUBE (20:55)
[2020-07-29] VITALS (9 sets, daily range): BP systolic 105–120; BP diastolic 61–75; PULSE 84–106; RESP 12–20; TEMP 36.6–37.1; O2SAT 95–98
[2020-07-29] MEDS: METOCLOPRAMIDE HCL INJ 10 MG/2 ML VIAL 5 MG IV PUSH ×4 (00:52→18:39)
[2020-07-29] MEDS: dilTIAZem HCL 60 MG TABLET FEED TUBE ×4 (00:52→18:39)
[2020-07-29] MEDS: busPIRone HCL 10 MG TABLET FEED TUBE ×3 (05:13→21:54)
[2020-07-29] MEDS: CENTRAL LINE FLUSH 10 ML IV PUSH ×3 (05:13→21:54)
[2020-07-29] MEDS: DORNASE ALFA INH SOLN 1 MG/ML 2.5 ML AMP 2.5 MG INHALATION ×2 (07:35→20:23)
[2020-07-29] MEDS: BUDESONIDE RESPULE NEB 0.5 MG/2 ML AMP INHALATION ×2 (07:35→20:23)
[2020-07-29] MEDS: IPRATROPIUM BR 0.02% INH SOLN 0.5 MG/2.5 ML VIAL INHALATION (07:35)
[2020-07-29] MEDS: SILVERGEL (ELTA) 45 ML 1 APPLIC TOPICAL (10:32)
[2020-07-29] MEDS: ENOXAPARIN 40 MG/0.4 ML SYRINGE SUB-Q (10:32)
[2020-07-29] MEDS: FAMOTIDINE 20 MG TABLET FEED TUBE ×2 (10:32→16:02)
[2020-07-29] MEDS: FOLIC ACID 1 MG TABLET FEED TUBE (10:32)
--- NOTE | 2020-07-29 18:30 | PM.IMPN ---
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 To low intermittent suction Continue to monitor. (2) Nausea & vomiting: Qualifiers: Vomiting Intractability: non-intractable Vomiting type: unspecified Qualified Code(s): R11.2 - Nausea with vomiting, unspecified Code(s): R11.2 - Nausea with vomiting, unspecified Status: Acute Assessment and Plan: Resolved NPO J-tube feedings Formula has been changed Tolerating (3) Pneumonia: Qualifiers: Laterality: unspecified laterality Lung location: unspecified part of lung Pneumonia type: due to unspecified organism Qualified Code(s): J18.9 - Pneumonia, unspecified organism Code(s): J18.9 - Pneumonia, unspecified organism Status: Acute Assessment and Plan: Likely aspiration Completed Vanc and Zosyn Aspiration precautions NPO (4) Gastrostomy tube dysfunction: Code(s): K94.23 - Gastrostomy malfunction Status: Acute Assessment and Plan: Resolved. (5) Aspiration into airway: Code(s): T17.908A - Unspecified foreign body in respiratory tract, part unspecified causing other injury, initial encounter Status: Acute Assessment and Plan: Resolved However might be and ongoing issue for him (6) Encephalopathy chronic: Code(s): G93.49 - Other encephalopathy Status: Chronic Assessment and Plan: Supportive care Waxes and wanes. Subjective Date/time seen: 07/29/20 18:30 Patient is non verbal will mumble randomly Review of Systems Review of Systems: ROS unobtainable: Yes unobtainable due to medical condition (Encephalopathy) Exam Narrative: Exam Narrative: Sitting in bed. Const: General: comfortable, no acute distress, awake and other (Chronically ill looking.) Nutritional Appearance: cachectic Orientation/consciousness: Other orientation findings (Encephalopathy.) HENMT: Head: normal to inspection and normocephalic Ears: hearing grossly normal bilaterally General nose exam: Normal external nose present Face and sinus: normal facial exam Eyes: General: appearance normal, both eyes and all related structures Pupils: Equal, round and reactive pupils present EOM: EOMs intact bilaterally Neck: Neck: no lymphadenopathy, supple and no JVD Resp: Effort & Inspection: able to speak in complete sentences Auscultation: clear to auscultation bilaterally Cardio: Rate: regular rate Rhythm: regular rhythm GI: Inspection: other (J-Tube in place, G-tube in place.) GI Palp: Yes Soft to palpation and Yes No hepatosplenomegaly present Skin: Rashes: no rashes Neuro: General: CN's II-XI intact bilaterally and other (Encephalopathy.) Cranial nerves: Yes CN's II-XII intact bilaterally Objective Data Vital Signs Vital Signs: Vital Signs - 24 hr 07/28/20 19:50 07/28/20 20:19 07/29/20 00:18 Temperature 98.6 F 98.7 F Pulse Rate 111 H 103 H Respiratory Rate 14 16 Blood Pressure 108/61 120/75 Pulse Oximetry 97 94 96 07/29/20 05:48 07/29/20 07:35 07/29/20 07:45 Temperature 98.8 F Pulse Rate 106 H 102 H 100 Respiratory Rate 12 16 16 Blood Pressure 115/72 Pulse Oximetry 97 97 07/29/20 08:00 07/29/20 14:00 Temperature 98 F Pulse Rate 100 105 H Respiratory Rate 16 20 Blood Pressure 105/71 Pulse Oximetry 97 98 Intake/Output Intake/Output: Intake & Output 07/26/20 07/27/20 07/28/20 07/29/20 23:59 23:59 23:59 23:59 Intake Total 224 383 0497 4813 Output Total 900 1150 1150 730 Balance -380 -230 285 8894 Meds/Results Medications: Active Medications Generic Name Dose Route Start Last Admin Trade Name Freq PRN Reason Stop Dose Admin Acetaminophen 650 mg 07/20/20 21:02 Acetaminophen Elixir 325 Mg/10.15 Ml Udc FEED TUBE Q6H PRN Pain Alteplase, Recombinant 2 mg 07/20/20 10:
[2020-07-29] MEDS: LORazepam (*CRX) 0.5 MG TABLET 0.25 MG FEED TUBE (21:53)
[2020-07-30] VITALS (7 sets, daily range): BP systolic 104–121; BP diastolic 69–74; PULSE 81–108; RESP 14–20; TEMP 36–37.1; O2SAT 95–98
[2020-07-30] MEDS: METOCLOPRAMIDE HCL INJ 10 MG/2 ML VIAL 5 MG IV PUSH ×4 (00:27→18:28)
[2020-07-30] MEDS: dilTIAZem HCL 60 MG TABLET FEED TUBE ×4 (00:28→18:28)
[2020-07-30] MEDS: busPIRone HCL 10 MG TABLET FEED TUBE ×3 (05:11→22:01)
[2020-07-30] MEDS: CENTRAL LINE FLUSH 10 ML IV PUSH ×3 (05:11→22:02)
[2020-07-30] MEDS: BUDESONIDE RESPULE NEB 0.5 MG/2 ML AMP INHALATION ×2 (08:30→19:24)
[2020-07-30] MEDS: DORNASE ALFA INH SOLN 1 MG/ML 2.5 ML AMP 2.5 MG INHALATION ×2 (08:30→19:25)
[2020-07-30] MEDS: FOLIC ACID 1 MG TABLET FEED TUBE (09:14)
[2020-07-30] MEDS: ENOXAPARIN 40 MG/0.4 ML SYRINGE SUB-Q (09:14)
[2020-07-30] MEDS: FAMOTIDINE 20 MG TABLET FEED TUBE ×2 (09:14→18:28)
[2020-07-30] MEDS: SILVERGEL (ELTA) 45 ML 1 APPLIC TOPICAL (09:14)
--- NOTE | 2020-07-30 13:00 | PC.NURSE ---
call to pharmacy, cardizem capsules sent instead of tabs so unable to scan, will administer when arrives
--- NOTE | 2020-07-30 15:54 | PM.IMPN ---
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 Status: Acute Assessment and Plan: G-tube in place and to remain in place for decompression indefinite time Will require ongoing suctioning on/off for indefinite time Low intermittent suction on/off for indefinite time (2) Nutrition disorder: Code(s): E63.9 - Nutritional deficiency, unspecified Status: Acute Assessment and Plan: On tube feeds Heating Element Winder on board NPO (3) Encephalopathy chronic: Code(s): G93.49 - Other encephalopathy Status: Chronic Assessment and Plan: Waxes and wanes Supportive care (4) Dysphagia: Qualifiers: Dysphagia type: unspecified Qualified Code(s): R13.10 - Dysphagia, unspecified Code(s): R13.10 - Dysphagia, unspecified Status: Chronic Assessment and Plan: NHPO Aspiration precautions G-tube in place J-tube in place Tube feeds only Subjective Date/time seen: 07/30/20 15:54 Non verbal. Review of Systems Review of Systems: ROS unobtainable: Yes unobtainable due to medical condition and other (Encephalopathic.) Exam Narrative: Exam Narrative: lying in bed Const: General: comfortable, no acute distress, awake and other (Chronically ill looking.) Nutritional Appearance: cachectic HENMT: Head: normal to inspection and normocephalic Face and sinus: normal facial exam Eyes: General: appearance normal, both eyes and all related structures Pupils: Equal, round and reactive pupils present EOM: EOMs intact bilaterally Neck: Neck: no lymphadenopathy, supple and no JVD Resp: Effort & Inspection: able to speak in complete sentences Auscultation: clear to auscultation bilaterally Cardio: Rate: regular rate Rhythm: regular rhythm GI: Inspection: other (G-tube and J-tube in place.) GI Palp: Yes Soft to palpation and Yes No hepatosplenomegaly present Skin: Rashes: no rashes Wounds: wounds noted (G-tube and J-tube in place.) Neuro: General: CN's II-XI intact bilaterally Cranial nerves: Yes CN's II-XII intact bilaterally and Yes Equal, round and reactive pupils present Cognition (Neuro): abnormal cognition (Encephalopathy) Motor exam (neuro): Other motor observations present (Contracture spasticity of both LE) Extrem: General: no pedal edema Objective Data Vital Signs Vital Signs: Vital Signs - 24 hr 07/29/20 19:36 07/29/20 20:24 07/29/20 20:25 Temperature 98.4 F Pulse Rate 95 84 84 Respiratory Rate 14 16 20 Blood Pressure 107/61 Pulse Oximetry 97 95 07/30/20 02:01 07/30/20 08:32 07/30/20 08:44 Temperature 98.8 F Pulse Rate 101 H 96 81 Respiratory Rate 14 16 18 Blood Pressure 121/74 Pulse Oximetry 98 96 07/30/20 15:27 Temperature 96.8 F L Pulse Rate 108 H Respiratory Rate 16 Blood Pressure 110/74 Pulse Oximetry 98 Intake/Output Intake/Output: Intake & Output 07/27/20 07/28/20 07/29/20 07/30/20 23:59 23:59 23:59 23:59 Intake Total 630 1330 5633 817 Output Total 1150 1150 738 400 Balance -145 427 9303 417 Meds/Results Medications: Active Medications Generic Name Dose Route Start Last Admin Trade Name Freq PRN Reason Stop Dose Admin Acetaminophen 650 mg 07/20/20 21:02 Acetaminophen Elixir 325 Mg/10.15 Ml Udc FEED TUBE Q6H PRN Pain Alteplase, Recombinant 2 mg 07/20/20 10:44 07/20/20 15:05 Alteplase 2 Mg Vial (Cathflo) IV PUSH 2 mg ONCE PRN Administration Line Occlusion Budesonide 0.5 mg 07/20/20 20:00 07/30/20 08:30 Budesonide Respule Neb 0.5 Mg/2 Ml Amp INHALATION 0.5 mg Q12HRT JERAMIE Administration Buspirone HCl 10 mg 07/20/20 22:00 07/30/20 15:34 Buspirone Hcl 10 Mg Tablet FEED TUBE 10 mg Q8HR JERAMIE Administration Diltiazem HCl 60 mg 07/22/20 18:00 07/30/20 05:11 Diltiazem Hcl 60 Mg Tablet FEED TUBE 60 mg Q6HR JERAMIE Administration Dornase Demetris 2.5 mg 07/21/20 08:00 03
[2020-07-30 18:21] LABS: SARS-CoV-2 RNA PCR Negative
[2020-07-30] MEDS: LORazepam (*CRX) 0.5 MG TABLET 0.25 MG FEED TUBE (21:59)
[2020-07-31] MEDS: METOCLOPRAMIDE HCL INJ 10 MG/2 ML VIAL 5 MG IV PUSH ×2 (00:41→05:31)
[2020-07-31] MEDS: dilTIAZem HCL 60 MG TABLET FEED TUBE ×3 (00:42→11:09)
[2020-07-31] MEDS: busPIRone HCL 10 MG TABLET FEED TUBE ×2 (05:31→13:48)
[2020-07-31 06:00] VITALS: BP 117/71; PULSE 92; RESP 18; TEMP 36.2; O2SAT 97
[2020-07-31] MEDS: SILVERGEL (ELTA) 45 ML 1 APPLIC TOPICAL (06:53)
[2020-07-31] MEDS: DORNASE ALFA INH SOLN 1 MG/ML 2.5 ML AMP 2.5 MG INHALATION (07:35)
[2020-07-31 07:36] VITALS: O2SAT 98
[2020-07-31] MEDS: BUDESONIDE RESPULE NEB 0.5 MG/2 ML AMP INHALATION (07:36)
[2020-07-31 07:37] VITALS: PULSE 92; RESP 20
[2020-07-31 07:51] VITALS: PULSE 89; RESP 20
[2020-07-31] MEDS: FAMOTIDINE 20 MG TABLET FEED TUBE (10:40)
[2020-07-31] MEDS: FOLIC ACID 1 MG TABLET FEED TUBE (10:40)
[2020-07-31] MEDS: ENOXAPARIN 40 MG/0.4 ML SYRINGE SUB-Q (10:41)
--- NOTE | 2020-07-31 11:20 | PCNFU ---
Nutrition Follow-Up Complete: Inadequate infusion of enteral nutrition related to multiple medical conditions as evidenced by NPO status. goal: Patient to meet estimated nutritional needs. Patient has met current goal. No new goal. Pt current nutrition is Glucerna 1.2 at 70 ml/hr. Last recorded weight is 45.9 kg, stable. Bowel Motility:+BM reported 3/2 Labs Reviewed:Cr 0.6,Alb 3.3,Hgb 11.7,Hct 37.5 Meds Noted:Ativan,Buspar, Lovenox,Folic Acid, Pepcid Additional Notes: Patient seen today for nutrition follow up. Patient remains on tube feeding of Glucerna 1.2 at 70 ml/hr and tolerating per nursing. Current tube feedings are providing patient with 1848 kcals/92 gms protein. Patient is meeting 100% of estimated caloric needs. Monitoring: tube feedings, weight, labs, meds every Thursday/Thursday.
--- NOTE | 2020-08-17 19:13 | PM.DS ---
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 Status: Acute Assessment and Plan: G-tube in place and to remain in place for decompression indefinite time Will require ongoing suctioning on/off for indefinite time Low intermittent suction on/off for indefinite time (2) Gastrostomy tube dysfunction: Code(s): K94.23 - Gastrostomy malfunction Status: Acute Assessment and Plan: continue local care is status post J-tube placed (3) Nutrition disorder: Code(s): E63.9 - Nutritional deficiency, unspecified Status: Acute Assessment and Plan: patient on feeding tube (4) Encephalopathy chronic: Code(s): G93.49 - Other encephalopathy Status: Chronic Assessment and Plan: waxes and wanes (5) Aspiration into airway: Code(s): T17.908A - Unspecified foreign body in respiratory tract, part unspecified causing other injury, initial encounter Status: Acute Assessment and Plan: aspiration precaution (6) Severe sepsis: Code(s): A41.9 - Sepsis, unspecified organism; R65.20 - Severe sepsis without septic shock Status: Acute Assessment and Plan: rule out (7) COPD (chronic obstructive pulmonary disease): Code(s): J44.9 - Chronic obstructive pulmonary disease, unspecified Status: Acute Assessment and Plan: stable not actively wheezing (8) Hypernatremia: Code(s): E87.0 - Hyperosmolality and hypernatremia Status: Acute Assessment and Plan: free water deficit to replenished continue to monitor (9) Dehydration: Code(s): E86.0 - Dehydration Status: Acute Assessment and Plan: resolved DS: Summary Hospital Course Hospital Course: History is extremely limited and is mainly taken from ER notes and previous admission to the hospital. History is also taken from [facility] notes. History limited because patient is nonverbal. Patient was sent to [facility] for evaluation of fever previously in the recent admissions patient had aspiration pneumonias multiple times and also have Pseudomonas UTI. At present time patient is febrile, has mild shortness of breath. patient this time had a pretty much uneventful hospital stay. he had 1 positive blood cultures with staph coagulase negative infectious disease was consulted and he was believed that it was a contaminant no need to treat no procedures were done patient was resuscitated with fluids he was back to his baseline and was discharged to [facility]. Time Spent with Patient Time attestation: Total time spent providing and/or coordinating discharge services: Exam Const: General: comfortable, no acute distress, well developed, alert and awake Nutritional Appearance: average body habitus and cachectic Orientation/consciousness: oriented to person HENMT: Head: normal to inspection, normocephalic and atraumatic Ears: hearing grossly normal bilaterally Face and sinus: normal facial exam Eyes: General: appearance normal, both eyes and all related structures Pupils: Equal, round and reactive pupils present EOM: EOMs intact bilaterally Neck: Neck: full ROM, no lymphadenopathy and no JVD Thyroid: thyroid normal Lymphatic: no lymphadenopathy noted Resp: Effort & Inspection: normal respiratory effort and able to speak in complete sentences Auscultation: clear to auscultation bilaterally Cardio: Jugular venous distension: no JVD Rate: regular rate Rhythm: regular rhythm Heart sounds: S1 normal heart sound present and S2 normal heart sound present GI: GI Palp: Yes Sof
== END 2020-07-31 14:25 | DRG 871 ==
LOC: ANHED 07:05 → ANHICU 08:44 → ANHIMU 07-24 12:18 → ANH3MED 07-30 00:36 → ANHICU 08-01 09:24 → ANHIMU 08-01 09:24
PROVIDERS: Family Medicine; Internal Medicine; Internal Medicine Critical Care Medicine; Admitting Provider Internal Medicine; Emergency Provider Emergency Medicine; Visit Provider Internal Medicine
DX: A41.9 Sepsis, unspecified organism (principal); J96.01 Acute respiratory failure with hypoxia; J69.0 Pneumonitis due to inhalation of food and vomit; I47.1 Supraventricular tachycardia; G93.49 Other encephalopathy; R40.3 Persistent vegetative state; N12 Tubulo-interstitial nephritis, not specified as acute or chronic; I10 Essential (primary) hypertension; R13.10 Dysphagia, unspecified; H44.9 Unspecified disorder of globe; Z20.822 Contact with and (suspected) exposure to COVID-19; D64.9 Anemia, unspecified; B96.5 Pseudomonas (aeruginosa) (mallei) (pseudomallei) as the cause of diseases classified elsewhere; Z93.1 Gastrostomy status; K91.1 Postgastric surgery syndromes
CPT/HCPCS: 36415; 36430; 36600; 71045; 71275; 74018; 74177; 80048; 80053; 80069; 80202; 81001; 82274; 82805; 83605; 83735; 83880; 84100; 84484; 85025; 85027; 85610; 85730; 86140; 86480; 86850; 86900; 86901; 86923; 87040; 87077; 87081; 87086; 87088; 87186; 87804; 93005; 94640; 96361; 96365; 96366; 96375; 99291; A9270; C9113; C9803; J0153; J0295; J0692; J0744; J1650; J1940; J1956; J2543; J2765; J2997; J3370; J3475; J3480; J7030; J7050; P9016; Q9967; U0003; U0005

== ENCOUNTER 2020-08-09 04:29 | Inpatient (IN) | payer MEDICARE, MEDICAID, SELFPAY ==
[2020-08-09] VITALS (18 sets, daily range): BP systolic 110–147; BP diastolic 75–91; PULSE 104–133; RESP 16–23; TEMP 36.3–38.3; O2SAT 95–100; BMI 15.1
--- NOTE | ~2020-08-09 | XR_ITS ---
EXAMINATION: XR chest 1V portable INDICATION: Fever TECHNIQUE: Portable AP chest at 0452 hours COMPARISON: 07/25/2020 FINDINGS: There are minimal opacities of the lung bases. No pleural effusion or pneumothorax is ident ified. The cardiomediastinal silhouette is normal. IMPRESSION: 1. Minimal bibasilar airspace opacities, consistent with pneumonia on CT from today. Reviewed, dictated and finalized at location A. N WINDER IMPRESSION: 1. Minimal bibasilar airspace opacities, consistent with pneumonia on CT from t an.
--- NOTE | ~2020-08-09 | CT_ITS ---
EXAMINATION: CT abdomen pelvis w con INDICATION: Abdominal pain TECHNIQUE: Computed tomographic images of the abdomen and pelvis were obtained after the administrati on of 100 cc of Omnipaque 350 intravenous contrast. The dose-length product (DLP) was 435.13 mGy-cm. Automated exposure control and iterative reconstruction technique were employed. COMPARISON: 07/20/2020 FINDINGS: Respiratory motion artifact limits evaluation of the lung bases. There are persistent tree- in-bud and airspace opacities in the visualized lung bases. The heart size is normal. There is an 11 mm cyst of the liver near the gallbladder fossa. The spleen, pancreas, gallbladder, and adrenal gland s are normal. The kidneys are unremarkable. There is a percutaneous gastrostomy. A second percutaneou s tube has been inserted which appears to be in the proximal duodenum. No pathologically enlarged abd ominal or pelvic lymph nodes are identified. There is calcified atherosclerosis of the aorta and many of the other arteries. There is a Murphy catheter in the bladder with a moderate amount of gas in the bladder lumen. There is no free intraperitoneal gas or evidence of bowel obstruction. There is heter otopic ossification surrounding the lesser trochanter of the left femur. Mild lumbar spondylosis is n oted. IMPRESSION: 1. Tree-in-bud and airspace opacities of the lower lobes, consistent with pneumonia. Reviewed, dictated and finalized at location A. ETICS TEACHER IMPRESSION: 1. Tree-in-bud and airspace opacities of the lower lobes, consistent with pneum onia.
--- NOTE | ~2020-08-09 | XR_ITS ---
EXAMINATION: XR chest 1V portable DATE: 08/13/2020 05:39 INDICATION: Pneumonia. TECHNIQUE: A single frontal view of the chest was obtained. COMPARISON: Chest single view 08/11/2020 FINDINGS: The patient is rotated to his right. There is a diffuse reticulonodular pattern in the lung s. No pleural effusion or pneumothorax. The heart size is normal. IMPRESSION: 1. Stable diffuse lung disease, likely pneumonia. Reviewed, dictated and finalized at location A.
--- NOTE | ~2020-08-09 | XR_ITS ---
EXAMINATION: XR chest 1V portable DATE: 08/11/2020 05:38 INDICATION: Pneumonia. TECHNIQUE: A single frontal view of the chest was obtained. COMPARISON: Chest single view 08/09/2020, CT abdomen and pelvis 08/09/2020, chest CT 07/20/2020 FINDINGS: There are mild patchy airspace opacities and nodules in all lung zones bilaterally. No pleu ral effusion or pneumothorax. The heart size is normal. IMPRESSION: 1. Worsened diffuse lung disease, likely pneumonia. Reviewed, dictated and finalized at location A. ORK SUPPORT ADMINISTRATOR
--- NOTE | 2020-08-09 04:36 | ED.FEVER ---
HPI - Fever General Chief Complaint: Recheck/Abnormal Lab/Rx <Maurizio Monique MD - Last Filed: 08/14/20 15:04> Stated Complaint: abnormal labs <Maurizio Monique MD - Last Filed: 08/14/20 15:04> History of Present Illness HPI Narrative: Sent in from group home for abnormal labs, possibly due to fever of 102. Nonverbal at baseline. History extremely limited. On chart review he was recently hospitalized here with aspiration pneumonia and pseudomonas UTI. <Maurizio Monique MD - Last Filed: 08/14/20 15:04> Related Data Home Medications: Home Medications Medication Instructions Recorded Confirmed ipratropium-albuterol 3 ml INHALATION QID PRN 05/09/20 08/09/20 acetaminophen 650 mg PO Q6H PRN 05/24/20 08/09/20 Santyl 1 applic TOPICAL DAILY 07/20/20 08/09/20 hydrocodone-acetaminophen 1 tablet PO Q6H PRN 07/20/20 08/09/20 lorazepam [Ativan] 0.25 mg FEEDING TUBE HS 07/20/20 08/09/20 polyethylene glycol 3350 [Miralax] 17 g PO DAILY PRN 08/09/20 08/09/20 <Maurizio Monique MD - Last Filed: 08/14/20 15:04> Allergies/Adverse Reactions: Allergies Allergy/AdvReac Type Severity Reaction Status Date / Time No Known Allergies Allergy Verified 07/20/20 10:52 <Maurizio Monique MD - Last Filed: 08/14/20 15:04> Review of Systems Review of Systems: ROS unobtainable: Yes unobtainable due to medical condition and unobtainable due to mental status <Maurizio Monique MD - Last Filed: 08/14/20 15:04> [facility] Past Medical History Medical History: Medical History Acute on chronic blood loss anemia Anemia Anxiety COPD (chronic obstructive pulmonary disease) Disorder of autonomic nervous system Dumping syndrome Dysphagia With G-Tube placement Encephalopathy chronic History of gastrostomy tube placement Hydrocephalus Hypertension Paroxysmal tachycardia <Maurizio Monique MD - Last Filed: 08/14/20 15:04> Surgical History Surgical History: Surgical History History of tracheostomy x2 <Maurizio Monique MD - Last Filed: 08/14/20 15:04> Family History Family History: Family History Mother Endometrial cancer Father Hypertension Sibling Seizure <Maurizio Monique MD - Last Filed: 08/14/20 15:04> Social History Social History: Social History Social History: No hx of tobacco use but heavy alcohol use per sister. She was unsure if patient has hx of drug use. Patient is a group home resident. He is full code Smoking status: Never smoker Alcohol intake: unknown Substance use: unknown Substance use type: unknown Gender identity (if verbalized by the patient): Male Spiritual care concerns: No <Maurizio Monique MD - Last Filed: 08/14/20 15:04> Exam Const: General: alert and ill appearing chronically <Maurizio Monique MD - Last Filed: 08/14/20 15:04> HENMT: Head: normal to inspection <Maurizio Moniqeu MD - Last Filed: 08/14/20 15:04> Mouth: Yes dry mucous membranes <Maurizio Monique MD - Last Filed: 08/14/20 15:04> Eyes: Pupils: Equal, round and reactive pupils present <Maurizio Monique MD - Last Filed: 08/14/20 15:04> Resp: Effort & Inspection: normal respiratory effort <Maurizio Monique MD - Last Filed: 08/14/20 15:04> Auscultation: clear to auscultation bilaterally <Maurizio Monique MD - Last Filed: 08/14/20 15:04> Cardio: Rate: regular rate and tachycardic <Maurizio Monique MD - Last Filed: 08/14/20 15:04> GI: GI Palp: Yes Soft to palpation and Yes Tenderness to palpation present (GI) <Maurizio Monique MD - Last Filed: 08/14/20 15:04> Other: g-tube in place draining bilious fluid. <Maurizio Monique MD - Last Filed: 08/14/20 15:04> Skin: Other: mild pressure ulcer to sacrum Healin
[2020-08-09 04:56] LABS: Basophils Percent Auto 0.3 % (0.2-1.2); Eosinophils Absolute Auto 0.2 K/mm3 (0-0.3); Eosinophils Percent Auto 1.2 % (0-4.4); Hematocrit 41.6 % (42.0-52.0); Hemoglobin 12.2 g/dL (14.0-18.0); Immature Granulocyte Absolute 0.06 K/mm3 (0.00-0.031); Immature Granulocyte Percent A 0.4 % (0-0.5); Lymphocytes Absolute Auto 1.49 K/mm3 (0.9-3.2); Mean Corpuscular HGB Conc 29.3 g/dl (32-36); Mean Corpuscular Hemoglobin 24.8 pg (26-34); Mean Corpuscular Volume 84.7 fl (80-100); Mean Platelet Volume 11.3 fl (7.4-10.4); Monocytes Absolute Auto 1.2 K/mm3 (0.1-0.6); Neutrophils Absolute Auto 11.9 K/mm3 (1.3-6.7); Neutrophils Percent Auto 80.1 % (45.5-73.1); Platelet Count Result 300 k/mm3 (150-375); Red Blood Count 4.91 M/mm3 (4.6-6.20); Red Cell Distribution Width 21.5 % (11.5-14.5); White Blood Count 14.9 K/mm3 (4.5-10.0)
[2020-08-09 05:07] LABS: Add Urine Microscopic? YES; Appearance Urine Cloudy (Clear); Bilirubin Urine Negative (Negative); Color Urine Yellow (Yellow); Glucose Urine UA Negative (Negative); Ketones Urine Negative (Negative); Leukocyte Esterase Ur 1+ LEU/UL (Negative); Mucus Urine Rare /lpf; Nitrate Urine Negative (Negative); Protein Urine 2+ mg/dL (Negative); RBC Urine 21-50 /hpf (0-2); Specific Grav Ur 1.026 (1.001-1.035); Squamous Epithelial Cell Urine Rare /hpf (Few)
[2020-08-09 05:08] LABS: Lactic Acid Reflex 1.2 mmol/L (0.7-2.1)
[2020-08-09 05:09] LABS: INR 1.1; Prothrombin Time 15.2 Seconds (11.1-14.7)
[2020-08-09 05:10] LABS: Partial Thromboplastin Time 39.1 SECONDS (22.3-36.8)
[2020-08-09 05:14] LABS: Blood Urine Negative (Negative); Budding Yeast Urine Present /hpf
[2020-08-09 05:26] LABS: Alanine Aminotransferase 19 U/L (4-50); Albumin Level 3.7 g/dL (3.5-5.1); Alkaline Phosphatase 133 U/L (38-126); Anion Gap 6 mmol/L (8-16); Aspartate Amino Transferase 26 U/L (17-59); Bilirubin,Total 0.5 mg/dL (0.2-1.3); Blood Urea Nitrogen 28 mg/dL (9-20); CRP 12.1 mg/dL (<1.0); Calcium 9.1 mg/dL (8.4-10.2); Carbon Dioxide 36 mmol/L (22-30); Chloride 110 mmol/L (98-107); Estimated CRCL calculation 70 ml/min; Estimated Glomerular Filt Rate > 60; Glucose 115 mg/dL (75-110); Potassium 3.8 mmol/L (3.4-5.0); Sodium 152 mmol/L (137-145)
[2020-08-09] MEDS: SODIUM CHLORIDE 0.9% IV 1,000 ML 999 ML IV CONT ×2 (05:43→07:51)
--- NOTE | 2020-08-09 06:05 | ECG_ITS ---
Measurements Intervals [place] Rate: 112 P: 22 TN: 128 QRS: -53 QRSD: 87 T: 35 QT: 317 QTc: 433 Interpretive Statements SINUS TACHYCARDIA LEFT AXIS DEVIATION ANTEROSEPTAL INFARCT, AGE INDETERMINATE ABNORMAL ECG Electronically Signed On 08-09-2020 8:20:10 HAND ASSEMBLER FOR PULLER OVER by Leon Balderas D.O.
--- NOTE | 2020-08-09 08:13 | PC.NURSE ---
Spoke to I[place] and gave update on pt status/admit.
--- NOTE | 2020-08-09 09:19 | ADMGEN ---
This patient, King Sullivan, was admitted to IMU Room 212-01 at 0804. Patient/family oriented to hospital policies and general routines including ID bracelet, bed and alarms, visiting hours, pain management, procedures, bathroom and other care routines, personal items, smoking policy, room service/diet, and visiting hours. Information on how to activate the Rapid Response Team has been discussed. Patient/Family are encouraged to report perceived risks to care and to ask questions if they do not understand what they are told or what they should do.
[2020-08-09] MEDS: LACTATED RINGERS 1,000 ML 75 ML IV CONT (10:27)
--- NOTE | 2020-08-09 14:41 | PM.IMHP ---
H&P: HPI History of Present Illness Date/Time: 08/09/20 14:41 Chief Complaint: Fever in [facility] Narrative: History is extremely limited and is mainly taken from ER notes and previous admission for in the hospitals. History is also taken from [facility] notes. History limited because patient is nonverbal. Patient was sent to [facility] for the evaluation of fever previously in the recent admissions patient had pneumonias multiple time and also have Pseudomonas UTI. At present time patient is febrile, has mild shortness of breath, denies any chest pain. No abdominal pain no nausea vomiting. Review of Systems Review of Systems: All systems reviewed & are unremarkable except as noted in HPI and below (the history and physical) PMFSH Past Medical History Medical History Acute on chronic blood loss anemia Anemia Anxiety COPD (chronic obstructive pulmonary disease) Disorder of autonomic nervous system Dumping syndrome Dysphagia With G-Tube placement Encephalopathy chronic History of gastrostomy tube placement Hydrocephalus Hypertension Paroxysmal tachycardia Surgical History Surgical History History of tracheostomy x2 Family History Family History Mother Endometrial cancer Father Hypertension Sibling Seizure Social History Social History Social History: No hx of tobacco use but heavy alcohol use per sister. She was unsure if patient has hx of drug use. Patient is a [facility] resident. He is full code Smoking status: Never smoker Alcohol intake: unknown Substance use: unknown Substance use type: unknown Gender identity (if verbalized by the patient): Male Spiritual care concerns: No Meds Home Medications and Allergies Home Medications Medication Instructions Recorded Confirmed Type ipratropium-albuterol 3 ml INHALATION QID PRN 05/09/20 08/09/20 History buspirone 10 mg FEEDING TUBE TID #90 tablet 05/22/20 08/09/20 Rx folic acid 1 mg FEEDING TUBE DAILY #30 tablet 05/22/20 08/09/20 Rx metoclopramide HCl 5 mg FEEDING TUBE ACHS #120 tablet 05/22/20 08/09/20 Rx acetaminophen 650 mg PO Q6H PRN 05/24/20 08/09/20 History Pulmozyme 2.5 mg INHALATION Q12HRT 30 Days 06/07/20 08/09/20 Rx #150 ml diltiazem HCl 60 mg FEEDING TUBE Q6HR #30 tablet 06/07/20 08/09/20 Rx famotidine 20 mg FEEDING TUBE BID 30 Days #60 06/07/20 08/09/20 Rx tablet insulin aspart U-100 [Novolog 3 - 6 units SUBCUT Q6H 30 Days ml 06/07/20 08/09/20 Rx U-100 Insulin aspart] Santyl 1 applic TOPICAL DAILY 07/20/20 08/09/20 History hydrocodone-acetaminophen 1 tablet PO Q6H PRN 07/20/20 08/09/20 History lorazepam [Ativan] 0.25 mg FEEDING TUBE HS 07/20/20 08/09/20 History polyethylene glycol 3350 [Miralax] 17 g PO DAILY PRN 08/09/20 08/09/20 History Allergies Allergy/AdvReac Type Severity Reaction Status Date / Time No Known Allergies Allergy Verified 07/20/20 10:52 Vital Signs Vital Signs - 24 hr 08/09/20 04:31 08/09/20 06:32 08/09/20 07:20 Temperature 38.3 C H Pulse Rate 133 H 112 H 110 H Respiratory Rate 18 22 H 23 H Blood Pressure 120/86 110/75 123/87 Pulse Oximetry 98 100 96 08/09/20 08:00 08/09/20 08:05 08/09/20 09:25 Temperature 36.3 C L 36.3 C L Pulse Rate 108 H 105 H 105 H Respiratory Rate 20 18 18 Blood Pressure 131/79 124/78 124/78 Pulse Oximetry 97 100 100 08/09/20 12:00 Temperature 36.3 C L Pulse Rate 113 H Respiratory Rate 20 Blood Pressure 147/89 H Pulse Oximetry 99 Exam Narrative: Exam Narrative: General: alert and ill appearing chronically HENMT: Head: normal to inspection Mouth: Yes dry mucous membranes Eyes: Pupils: Equal, round and reactive pupils present Resp: Effort & Inspection: normal respiratory effort Auscultation: clear to aus
[2020-08-09 16:27] LABS: SARS-CoV-2 RNA PCR Negative
[2020-08-09] MEDS: busPIRone HCL 10 MG TABLET FEED TUBE (16:45)
[2020-08-09] MEDS: dilTIAZem HCL 60 MG TABLET FEED TUBE (16:45)
[2020-08-09] MEDS: METOCLOPRAMIDE HCL 5 MG TABLET FEED TUBE ×2 (16:45→21:54)
[2020-08-09 17:08] LABS: Glucose Point of Care 95 (65-105)
--- NOTE | 2020-08-09 19:23 | PC.NURSE ---
This patient, King Sullivan, was transferred to [[id number]] on 08/09/20 at 1923. Personal belongings sent with patient. Report given to [ADRIENNE CRAWFORD]. Appropriate documentation sent with patient.
[2020-08-09] MEDS: DORNASE ALFA INH SOLN 1 MG/ML 2.5 ML AMP 2.5 MG INHALATION (20:32)
[2020-08-09] MEDS: FAMOTIDINE 20 MG TABLET FEED TUBE (21:54)
[2020-08-09] MEDS: LORazepam (*CRX) 0.5 MG TABLET 0.25 MG FEED TUBE (21:55)
[2020-08-09 22:27] LABS: Glucose Point of Care 97 (65-105)
[2020-08-10] VITALS (10 sets, daily range): BP systolic 104–116; BP diastolic 61–75; PULSE 80–112; RESP 18–27; TEMP 36.8–37.1; O2SAT 92–100
[2020-08-10] MEDS: dilTIAZem HCL 60 MG TABLET FEED TUBE ×5 (01:05→23:50)
[2020-08-10] MEDS: LACTATED RINGERS 1,000 ML 75 ML IV CONT ×2 (04:47→21:45)
[2020-08-10 05:26] LABS: Hematocrit 32.8 % (42.0-52.0); Hemoglobin 9.5 g/dL (14.0-18.0); Mean Corpuscular Hemoglobin 24.2 pg (26-34); Mean Corpuscular Volume 83.7 fl (80-100); Mean Platelet Volume 11.4 fl (7.4-10.4); Platelet Count Result 239 k/mm3 (150-375); Red Blood Count 3.92 M/mm3 (4.6-6.20); Red Cell Distribution Width 20.7 % (11.5-14.5)
[2020-08-10 05:54] LABS: Alanine Aminotransferase 11 U/L (4-50); Albumin Level 3.1 g/dL (3.5-5.1); Alkaline Phosphatase 108 U/L (38-126); Anion Gap 6 mmol/L (8-16); Aspartate Amino Transferase 19 U/L (17-59); Bilirubin,Total 0.8 mg/dL (0.2-1.3); Blood Urea Nitrogen 17 mg/dL (9-20); Calcium 8.7 mg/dL (8.4-10.2); Carbon Dioxide 30 mmol/L (22-30); Chloride 112 mmol/L (98-107); Estimated CRCL calculation 83 ml/min; Estimated Glomerular Filt Rate > 60; Glucose 101 mg/dL (75-110); Potassium 3.5 mmol/L (3.4-5.0); Sodium 148 mmol/L (137-145)
[2020-08-10] MEDS: METOCLOPRAMIDE HCL 5 MG TABLET FEED TUBE ×4 (06:04→21:45)
[2020-08-10] MEDS: DORNASE ALFA INH SOLN 1 MG/ML 2.5 ML AMP 2.5 MG INHALATION ×2 (07:30→21:09)
[2020-08-10] MEDS: ALBUTEROL SULFATE NEB 2.5 MG/0.5 ML INH INHALATION (07:30)
[2020-08-10] MEDS: IPRATROPIUM BR 0.02% INH SOLN 0.5 MG/2.5 ML VIAL INHALATION (07:31)
[2020-08-10] MEDS: FAMOTIDINE 20 MG TABLET FEED TUBE ×2 (08:43→21:45)
[2020-08-10] MEDS: ENOXAPARIN 40 MG/0.4 ML SYRINGE SUB-Q (08:43)
[2020-08-10] MEDS: FOLIC ACID 1 MG TABLET FEED TUBE (08:43)
[2020-08-10] MEDS: busPIRone HCL 10 MG TABLET FEED TUBE ×3 (08:43→17:11)
[2020-08-10 09:07] LABS: Glucose Point of Care 112 (65-105)
[2020-08-10] MEDS: COLLAGENASE OINT 30 GM TUBE 1 APPLIC TOPICAL (09:55)
--- NOTE | 2020-08-10 09:55 | PC.NURSE ---
dressings changed and wounds assessed by drafter heating and ventilating
--- NOTE | 2020-08-10 10:15 | PM.IMPN ---
Progress Note: A&P Assessment and Plan (1) Sepsis: Qualifiers: Sepsis acute organ dysfunction status: without acute organ dysfunction Sepsis type: sepsis due to unspecified organism Qualified Code(s): A41.9 - Sepsis, unspecified organism Code(s): A41.9 - Sepsis, unspecified organism Status: Acute Assessment and Plan: Will do blood culture and urine culture. Give vancomycin and Zosyn. Will continue current treatment monitor labs electrolytes in culture. (2) Hypernatremia: Code(s): E87.0 - Hyperosmolality and hypernatremia Status: Acute Assessment and Plan: Will place IV fluid Today sodium is 148 will continue to monitor (3) Dehydration: Code(s): E86.0 - Dehydration Status: Acute Assessment and Plan: Will give IV fluids. (4) Pneumonia: Qualifiers: Laterality: unspecified laterality Lung location: unspecified part of lung Pneumonia type: due to unspecified organism Qualified Code(s): J18.9 - Pneumonia, unspecified organism Code(s): J18.9 - Pneumonia, unspecified organism Status: Acute Assessment and Plan: Blood culture, IV antibiotics and repeat chest x-ray in a.m. (5) Hypertension: Qualifiers: Hypertension type: unspecified Qualified Code(s): I10 - Essential (primary) hypertension Code(s): I10 - Essential (primary) hypertension Status: Chronic Assessment and Plan: Monitor closely. (6) UTI (urinary tract infection): Code(s): N39.0 - Urinary tract infection, site not specified Status: Acute Assessment and Plan: Urine culture and IV antibiotic (7) Decubitus ulcer: Code(s): L89.90 - Pressure ulcer of unspecified site, unspecified stage Status: Acute Assessment and Plan: Wound care consult. Subjective Date/time seen: 08/10/20 10:15 Interval history: Patient was seen during the morning rounds today. Patient is more alert today. Mild shortness of breath. No chest pain. No abdominal pain or nausea vomiting. Mood stable. Review of Systems Review of Systems: All systems reviewed & are unremarkable except as noted in HPI and below (the history and physical) Exam Narrative: Exam Narrative: General: alert and ill appearing chronically HENMT: Head: normal to inspection Mouth: Yes dry mucous membranes Eyes: Pupils: Equal, round and reactive pupils present Resp: Effort & Inspection: normal respiratory effort Auscultation: clear to auscultation bilaterally Cardio: Rate: regular rate and tachycardic GI: GI Palp: Yes Soft to palpation and Yes Tenderness to palpation present (GI) Other: g-tube in place draining bilious fluid. 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 slightly warmer than surrounding area. Neuro: Other: alert. Nonverbal. Extrem: Other: diffuse contractures Objective Data Vital Signs Vital Signs: Vital Signs - 24 hr 08/09/20 12:00 08/09/20 14:00 08/09/20 16:00 Temperature 36.3 C L 36.5 C Pulse Rate 108 H 116 H 120 H Respiratory Rate 20 16 Blood Pressure 147/89 H 144/91 H Pulse Oximetry 99 99 08/09/20 18:00 08/09/20 20:00 08/09/20 20:30 Temperature 36.5 C Pulse Rate 117 H 115 H Respiratory Rate 18 Blood Pressure 134/89 Pulse Oximetry 98 95 08/09/20 20:33 08/09/20 20:39 08/09/20 20:40 Temperature 36.5 C Pulse Rate 111 H 112 H 107 H Respiratory Rate 22 H 16 22 H Blood Pressure 131/86 Pulse Oximetry 99 08/09/20 21:00 08/10/20 05:01 08/10/20 07:33 Temperature 36.8 C Pulse Rate 110 H 112 H Respiratory Rate 18 20 Blood Pressure 113/75 Pulse Oximetry 99 100 96 08/10/20 07:37 08/10/20 07:51 08/10/20 08:00 Temperature 37.1 C Pulse Rate 112 H 112 H 112 H Respiratory Rate 20 27 H 22 H Blood Pressure 116/61 Pulse Oximetry 100 100 Intake/Output Intake/Output: Intake & Output 08/07/20 08/08/20 08/09/20 03
--- NOTE | 2020-08-10 12:17 | PCNFU ---
Nutrition Follow-Up Complete: Inadequate infusion of enteral nutrition related to multiple medical issues as evidenced by NPO status. Goal: Patient to meet estimated nutritional needs. Progressing towards goal. We will continue current goal. Pt current nutrition is Glucerna 1.2 at 30 ml/hr advance by 10 ml q 4 hours to goal rate of 70 ml/hr. Last recorded weight is 45.4 kg. Bowel Motility:+BM noted 08/10 Labs Reviewed:Cr 0.5,Na 148 Meds Noted:Reglan,Ativan,Pepsid,LR, Vanco,Zosyn, Lovenox. Additional Notes: Nutrition follow up. Patient tube feedings starting today, patient had been NPO on admit. Glucerna 1.2 at 30 ml/hr advancing to goal rate of 70 ml/hr which will provide patient with 1848 kcals and 92 gms protein. Meeting 100% of patients caloric needs. Monitoring: weight, labs, tube feeding tolerance every Thursday/Thursday.
[2020-08-10 12:56] LABS: Glucose Point of Care 103 (65-105)
--- NOTE | 2020-08-10 13:49 | PC.NURSE ---
Addendum entered by Caty Haney 08/10/20 13:52: current RR 22 Original Note: On 08/10/20, the student, [Vinay Brar ], provided care and completed [employer] documentation on this patient. I have reviewed the student's documentation and agree with the findings.
[2020-08-10 17:33] LABS: Glucose Point of Care 96 (65-105)
[2020-08-10] MEDS: LORazepam (*CRX) 0.5 MG TABLET 0.25 MG FEED TUBE (21:44)
[2020-08-11] LABS: Glucose Point of Care 90 (65-105)
[2020-08-11] MEDS: ACETAMINOPHEN ELIXIR 325 MG/10.15 ML UDC 650 MG PO (04:34)
[2020-08-11 04:57] VITALS: BP 112/60; PULSE 105; RESP 18; TEMP 37.3; O2SAT 97
[2020-08-11] MEDS: dilTIAZem HCL 60 MG TABLET FEED TUBE ×4 (05:47→23:29)
[2020-08-11 05:50] LABS: Hematocrit 29.8 % (42.0-52.0); Hemoglobin 8.8 g/dL (14.0-18.0); Mean Corpuscular HGB Conc 29.5 g/dl (32-36); Mean Corpuscular Hemoglobin 24.2 pg (26-34); Mean Corpuscular Volume 81.9 fl (80-100); Mean Platelet Volume 11.5 fl (7.4-10.4); Platelet Count Result 247 k/mm3 (150-375); Red Blood Count 3.64 M/mm3 (4.6-6.20); Red Cell Distribution Width 20.1 % (11.5-14.5); White Blood Count 8.7 K/mm3 (4.5-10.0)
[2020-08-11 06:00] LABS: Alanine Aminotransferase 13 U/L (4-50); Albumin Level 2.9 g/dL (3.5-5.1); Alkaline Phosphatase 123 U/L (38-126); Anion Gap 2 mmol/L (8-16); Aspartate Amino Transferase 19 U/L (17-59); Bilirubin,Total 0.4 mg/dL (0.2-1.3); Blood Urea Nitrogen 12 mg/dL (9-20); Calcium 8.4 mg/dL (8.4-10.2); Carbon Dioxide 30 mmol/L (22-30); Chloride 111 mmol/L (98-107); Estimated CRCL calculation 85 ml/min; Estimated Glomerular Filt Rate > 60; Glucose 112 mg/dL (75-110); Potassium 3.4 mmol/L (3.4-5.0); Sodium 143 mmol/L (137-145)
[2020-08-11 06:17] LABS: Glucose Point of Care 100 (65-105)
--- NOTE | 2020-08-11 08:14 | PM.IMPN ---
Progress Note: A&P Assessment and Plan (1) Sepsis: Qualifiers: Sepsis acute organ dysfunction status: without acute organ dysfunction Sepsis type: sepsis due to unspecified organism Qualified Code(s): A41.9 - Sepsis, unspecified organism Code(s): A41.9 - Sepsis, unspecified organism Status: Acute Assessment and Plan: Will do blood culture and urine culture. Give vancomycin and Zosyn. Will continue current treatment monitor labs electrolytes in culture. (2) Hypernatremia: Code(s): E87.0 - Hyperosmolality and hypernatremia Status: Acute Assessment and Plan: Will place IV fluid Today sodium is 148 will continue to monitor (3) Dehydration: Code(s): E86.0 - Dehydration Status: Acute Assessment and Plan: Will give IV fluids. (4) Pneumonia: Qualifiers: Laterality: unspecified laterality Lung location: unspecified part of lung Pneumonia type: due to unspecified organism Qualified Code(s): J18.9 - Pneumonia, unspecified organism Code(s): J18.9 - Pneumonia, unspecified organism Status: Acute Assessment and Plan: Blood culture, IV antibiotics and repeat chest x-ray in a.m. (5) Hypertension: Qualifiers: Hypertension type: unspecified Qualified Code(s): I10 - Essential (primary) hypertension Code(s): I10 - Essential (primary) hypertension Status: Chronic Assessment and Plan: Monitor closely. (6) UTI (urinary tract infection): Code(s): N39.0 - Urinary tract infection, site not specified Status: Acute Assessment and Plan: Urine culture and IV antibiotic (7) Decubitus ulcer: Code(s): L89.90 - Pressure ulcer of unspecified site, unspecified stage Status: Acute Assessment and Plan: Wound care consult. His urine culture is negative. Waiting for blood culture and final wound culture report. Hemoglobin slightly decreased. Will repeat in the morning. If continues to improve med discharged back to long-term in the morning. Subjective Date/time seen: 08/11/20 08:14 Interval history: Patient was seen during the morning rounds today. Patient is more alert today. Decreased shortness of breath. No chest pain. No abdominal pain or nausea vomiting. Mood stable. No new complaints. Review of Systems Review of Systems: All systems reviewed & are unremarkable except as noted in HPI and below (the history and physical) Exam Narrative: Exam Narrative: General: alert and ill appearing chronically HENMT: Head: normal to inspection Mouth: Yes dry mucous membranes Eyes: Pupils: Equal, round and reactive pupils present Resp: Effort & Inspection: normal respiratory effort Auscultation: clear to auscultation bilaterally Cardio: Rate: regular rate and tachycardic GI: GI Palp: Yes Soft to palpation and Yes Tenderness to palpation present (GI) Other: g-tube in place draining bilious fluid. 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 slightly warmer than surrounding area. Neuro: Other: alert. Nonverbal. Extrem: Other: diffuse contractures Objective Data Vital Signs Vital Signs: Vital Signs - 24 hr 08/10/20 12:00 08/10/20 14:00 08/10/20 19:25 Temperature 36.9 C 37.0 C 36.8 C Pulse Rate 105 H 84 97 Respiratory Rate 27 H 20 18 Blood Pressure 112/63 104/65 112/72 Pulse Oximetry 100 100 100 08/10/20 21:10 08/10/20 21:12 08/11/20 04:57 Temperature 37.3 C Pulse Rate 80 105 H Respiratory Rate 20 18 Blood Pressure 112/60 Pulse Oximetry 92 97 Intake/Output Intake/Output: Intake & Output 08/08/20 08/09/20 08/10/20 08/11/20 23:59 23:59 23:59 23:59 Intake Total 1400 2935 1306 Output Total 800 850 50 Balance 600 2085 1256 Meds/Results Medications: Active Medications Generic Name Dose Route Start Last Admin Trade Name Freq PRN Reason Stop Dose Admin Acetaminophen 650 mg
[2020-08-11] MEDS: COLLAGENASE OINT 30 GM TUBE 1 APPLIC TOPICAL (08:42)
[2020-08-11] MEDS: FAMOTIDINE 20 MG TABLET FEED TUBE ×2 (08:42→20:17)
[2020-08-11] MEDS: ENOXAPARIN 40 MG/0.4 ML SYRINGE SUB-Q (08:42)
[2020-08-11] MEDS: busPIRone HCL 10 MG TABLET FEED TUBE ×3 (08:42→17:57)
[2020-08-11] MEDS: FOLIC ACID 1 MG TABLET FEED TUBE (08:42)
[2020-08-11] MEDS: METOCLOPRAMIDE HCL 5 MG TABLET FEED TUBE ×4 (08:42→20:18)
[2020-08-11] MEDS: MULTIVIT W/ IRON, MINERALS 15 ML LIQUID (*BKC) FEED TUBE (08:46)
[2020-08-11] MEDS: DORNASE ALFA INH SOLN 1 MG/ML 2.5 ML AMP 2.5 MG INHALATION (08:53)
[2020-08-11 08:56] VITALS: PULSE 100; RESP 16; O2SAT 100
[2020-08-11 09:05] VITALS: PULSE 99; RESP 14
[2020-08-11 13:17] LABS: Glucose Point of Care 82 (65-105)
[2020-08-11 13:38] LABS: Vancomycin Trough 8.2 ug/mL (10.0-20.0)
[2020-08-11 14:00] VITALS: BP 99/62; PULSE 103; RESP 20; TEMP 36.5; O2SAT 97
[2020-08-11] MEDS: LACTATED RINGERS 1,000 ML 75 ML IV CONT (16:20)
[2020-08-11 19:07] LABS: Glucose Point of Care 92 (65-105)
[2020-08-11 20:00] VITALS: BP 112/62; PULSE 77; RESP 18; TEMP 36.4; O2SAT 100
[2020-08-11] MEDS: LORazepam (*CRX) 0.5 MG TABLET 0.25 MG FEED TUBE (20:17)
[2020-08-12] VITALS (7 sets, daily range): BP systolic 97–111; BP diastolic 64–69; PULSE 90–108; RESP 16–20; TEMP 36.2–36.6; O2SAT 95–100
[2020-08-12 00:10] LABS: Glucose Point of Care 99 (65-105)
--- NOTE | 2020-08-12 03:09 | PC.NURSE ---
Daylight Savings Time For Daylight Savings Time Ending in the Fall - Clocks are moved back. For Daylight Savings Time Beginning in the Spring - Clocks are moved ahead. For [facility], the time of change occurs at 0200 hrs. Time is taken from the banquet server. This entry on the patient's chart recognizes the change in time reflected during documentation. Example: 2 entries for vital signs may be charted for 0200 hrs.
[2020-08-12 05:25] LABS: Hematocrit 31.6 % (42.0-52.0); Hemoglobin 9.4 g/dL (14.0-18.0); Mean Corpuscular HGB Conc 29.7 g/dl (32-36); Mean Corpuscular Hemoglobin 24.4 pg (26-34); Mean Corpuscular Volume 82.1 fl (80-100); Mean Platelet Volume 11.5 fl (7.4-10.4); Platelet Count Result 237 k/mm3 (150-375); Red Blood Count 3.85 M/mm3 (4.6-6.20); Red Cell Distribution Width 19.9 % (11.5-14.5); White Blood Count 7.7 K/mm3 (4.5-10.0)
[2020-08-12] MEDS: dilTIAZem HCL 60 MG TABLET FEED TUBE ×4 (05:45→22:28)
[2020-08-12] MEDS: LACTATED RINGERS 1,000 ML 75 ML IV CONT (05:45)
[2020-08-12] MEDS: METOCLOPRAMIDE HCL 5 MG TABLET FEED TUBE ×4 (05:46→22:29)
[2020-08-12 06:04] LABS: Glucose Point of Care 95 (65-105)
[2020-08-12] MEDS: DORNASE ALFA INH SOLN 1 MG/ML 2.5 ML AMP 2.5 MG INHALATION ×2 (08:21→19:52)
[2020-08-12] MEDS: MULTIVIT W/ IRON, MINERALS 15 ML LIQUID (*BKC) FEED TUBE (08:28)
[2020-08-12] MEDS: FOLIC ACID 1 MG TABLET FEED TUBE (08:29)
[2020-08-12] MEDS: FAMOTIDINE 20 MG TABLET FEED TUBE ×2 (08:29→22:29)
[2020-08-12] MEDS: COLLAGENASE OINT 30 GM TUBE 1 APPLIC TOPICAL (08:29)
[2020-08-12] MEDS: busPIRone HCL 10 MG TABLET FEED TUBE ×3 (08:29→17:44)
[2020-08-12] MEDS: ENOXAPARIN 40 MG/0.4 ML SYRINGE SUB-Q (08:29)
--- NOTE | 2020-08-12 09:15 | PM.IMPN ---
Progress Note: A&P Assessment and Plan (1) Sepsis: Qualifiers: Sepsis acute organ dysfunction status: without acute organ dysfunction Sepsis type: sepsis due to unspecified organism Qualified Code(s): A41.9 - Sepsis, unspecified organism Code(s): A41.9 - Sepsis, unspecified organism Status: Acute Assessment and Plan: Will do blood culture and urine culture. Give vancomycin and Zosyn. Will continue current treatment monitor labs electrolytes in culture. Blood cultures coagulase negative staph. (2) Hypernatremia: Code(s): E87.0 - Hyperosmolality and hypernatremia Status: Acute Assessment and Plan: Will place IV fluid Sodium is better now. (3) Dehydration: Code(s): E86.0 - Dehydration Status: Acute Assessment and Plan: Will give IV fluids. (4) Pneumonia: Qualifiers: Laterality: unspecified laterality Lung location: unspecified part of lung Pneumonia type: due to unspecified organism Qualified Code(s): J18.9 - Pneumonia, unspecified organism Code(s): J18.9 - Pneumonia, unspecified organism Status: Acute Assessment and Plan: Blood culture, IV antibiotics and repeat chest x-ray in a.m. (5) Hypertension: Qualifiers: Hypertension type: unspecified Qualified Code(s): I10 - Essential (primary) hypertension Code(s): I10 - Essential (primary) hypertension Status: Chronic Assessment and Plan: Monitor closely. (6) UTI (urinary tract infection): Code(s): N39.0 - Urinary tract infection, site not specified Status: Acute Assessment and Plan: Urine culture and IV antibiotic Will monitor cultures and adjust antibiotics according (7) Decubitus ulcer: Code(s): L89.90 - Pressure ulcer of unspecified site, unspecified stage Status: Acute Assessment and Plan: Wound care consult. His urine culture is negative. Waiting for blood culture and final wound culture report. Hemoglobin 9.4 today. If continues to improve med [facility]. Subjective Date/time seen: 08/12/20 09:15 Interval history: Patient was seen during the morning rounds today. Patient is more alert today. No shortness of breath. No chest pain. No abdominal pain or nausea vomiting. Mood stable. No new complaints. Review of Systems Review of Systems: All systems reviewed & are unremarkable except as noted in HPI and below (the history and physical) Exam Narrative: Exam Narrative: General: alert and ill appearing chronically HENMT: Head: normal to inspection Mouth: Yes dry mucous membranes Eyes: Pupils: Equal, round and reactive pupils present Resp: Effort & Inspection: normal respiratory effort Auscultation: clear to auscultation bilaterally Cardio: Rate: regular rate and tachycardic GI: GI Palp: Yes Soft to palpation and Yes Tenderness to palpation present (GI) Other: g-tube in place draining bilious fluid. 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 slightly warmer than surrounding area. Neuro: Other: alert. Nonverbal. Extrem: Other: diffuse contractures Objective Data Vital Signs Vital Signs: Vital Signs - 24 hr 08/11/20 08:56 08/11/20 09:05 08/11/20 14:00 Temperature 36.5 C Pulse Rate 100 99 103 H Respiratory Rate 16 14 20 Blood Pressure 99/62 L Pulse Oximetry 100 97 08/11/20 20:00 08/12/20 06:00 08/12/20 08:21 Temperature 36.4 C L 36.3 C L Pulse Rate 77 108 H 92 Respiratory Rate 18 20 18 Blood Pressure 112/62 111/69 Pulse Oximetry 100 98 08/12/20 08:33 Temperature Pulse Rate 93 Respiratory Rate 18 Blood Pressure Pulse Oximetry 95 Intake/Output Intake/Output: Intake & Output 08/09/20 08/10/20 08/11/20 08/13/20 23:59 23:59 23:59 00:59 Intake Total 1400 2935 3562 1829 Output Total 800 850 800 Balance 600 9403 7849 2098 Meds/Results Medicatio
[2020-08-12 12:56] LABS: Glucose Point of Care 83 (65-105)
[2020-08-12 18:18] LABS: Glucose Point of Care 100 (65-105)
[2020-08-12] MEDS: LORazepam (*CRX) 0.5 MG TABLET 0.25 MG FEED TUBE (22:29)
[2020-08-13] VITALS (9 sets, daily range): BP systolic 108–113; BP diastolic 66–81; PULSE 96–113; RESP 16–20; TEMP 36.1–36.6; O2SAT 92–100; BMI 11.0
[2020-08-13 00:24] LABS: Glucose Point of Care 95 (65-105)
[2020-08-13 02:11] LABS: Vancomycin Trough 13.5 ug/mL (10.0-20.0)
[2020-08-13] MEDS: LACTATED RINGERS 1,000 ML 75 ML IV CONT ×2 (02:13→20:44)
[2020-08-13 05:03] LABS: Estimated CRCL calculation 103 ml/min; Estimated Glomerular Filt Rate > 60
[2020-08-13] MEDS: dilTIAZem HCL 60 MG TABLET FEED TUBE ×3 (05:05→17:43)
[2020-08-13] MEDS: METOCLOPRAMIDE HCL 5 MG TABLET FEED TUBE ×4 (05:06→20:47)
[2020-08-13 05:36] LABS: Glucose Point of Care 94 (65-105)
[2020-08-13 08:23] LABS: Glucose Point of Care 97 (65-105)
[2020-08-13] MEDS: DORNASE ALFA INH SOLN 1 MG/ML 2.5 ML AMP 2.5 MG INHALATION ×2 (08:27→20:07)
[2020-08-13] MEDS: busPIRone HCL 10 MG TABLET FEED TUBE ×3 (09:45→17:43)
[2020-08-13] MEDS: FAMOTIDINE 20 MG TABLET FEED TUBE ×2 (09:45→20:47)
[2020-08-13] MEDS: ENOXAPARIN 40 MG/0.4 ML SYRINGE SUB-Q (09:45)
[2020-08-13] MEDS: MULTIVIT W/ IRON, MINERALS 15 ML LIQUID (*BKC) FEED TUBE (09:46)
[2020-08-13] MEDS: COLLAGENASE OINT 30 GM TUBE 1 APPLIC TOPICAL (09:46)
[2020-08-13] MEDS: FOLIC ACID 1 MG TABLET FEED TUBE (09:46)
[2020-08-13 12:05] LABS: Glucose Point of Care 81 (65-105)
[2020-08-13 12:58] LABS: SARS-CoV-2 RNA PCR Negative
--- NOTE | 2020-08-13 13:10 | PC.NURSE ---
To 348/01 via bed. Report called to Clau Louise RN.
--- NOTE | 2020-08-13 13:16 | PC.NURSE ---
This patient, King Sullivan, was received from [address] [place] [address] on 08/13/20 at 1316. Patient/family oriented to unit policies and routines
--- NOTE | 2020-08-13 16:19 | PM.IMPN ---
Progress Note: A&P Assessment and Plan (1) Sepsis: Qualifiers: Sepsis acute organ dysfunction status: without acute organ dysfunction Sepsis type: sepsis due to unspecified organism Qualified Code(s): A41.9 - Sepsis, unspecified organism Code(s): A41.9 - Sepsis, unspecified organism Status: Acute Assessment and Plan: Will do blood culture and urine culture. Give vancomycin and Zosyn. Will continue current treatment monitor labs electrolytes in culture. Blood cultures coagulase negative staph. 08/13/20 16:19 patient is 60-year-old male chronically encephalopathic and resident of nursing with history aspiration pneumonia and Pseudomonas UTI, patient was sent to emergency department with a fever of 102, patient is found to have wound growing Pseudomonas and MRSA, Pseudomonas is sensitive to imipenem treated, and MRSA being treated with vancomycin, and 1 blood culture is growing Gram-negative Streptococcus aureus sensitive is pending will follow-up as patient is being treated with imipenem and vancomycin. Patient is now afebrile for 3 days is white counts are trending now close to normal, Patient appears chronically ill unable to provide detailed review of symptoms, patient with a aspiration precaution, only fair with G-tube and has a G-tube in place, will continue to monitor patient is encouraged to participate in PT OT. (2) Hypernatremia: Code(s): E87.0 - Hyperosmolality and hypernatremia Status: Acute Assessment and Plan: Will place IV fluid Sodium is better now. (3) Dehydration: Code(s): E86.0 - Dehydration Status: Acute Assessment and Plan: Will give IV fluids. (4) Pneumonia: Qualifiers: Laterality: unspecified laterality Lung location: unspecified part of lung Pneumonia type: due to unspecified organism Qualified Code(s): J18.9 - Pneumonia, unspecified organism Code(s): J18.9 - Pneumonia, unspecified organism Status: Acute Assessment and Plan: Blood culture, IV antibiotics and repeat chest x-ray in a.m. (5) Hypertension: Qualifiers: Hypertension type: unspecified Qualified Code(s): I10 - Essential (primary) hypertension Code(s): I10 - Essential (primary) hypertension Status: Chronic Assessment and Plan: Monitor closely. (6) UTI (urinary tract infection): Code(s): N39.0 - Urinary tract infection, site not specified Status: Acute Assessment and Plan: Urine culture and IV antibiotic Will monitor cultures and adjust antibiotics according (7) Decubitus ulcer: Code(s): L89.90 - Pressure ulcer of unspecified site, unspecified stage Status: Acute Assessment and Plan: Wound care consult. His urine culture is negative. Waiting for blood culture and final wound culture report. Hemoglobin 9.4 today. If continues to improve med discharged back to care home in the morning. Subjective Date/time seen: 08/13/20 16:19 patient is 60-year-old male chronically encephalopathic and resident of nursing with history aspiration pneumonia and Pseudomonas UTI, patient was sent to emergency department with a fever of 102, patient is found to have wound growing Pseudomonas and MRSA, Pseudomonas is sensitive to imipenem treated, and MRSA being treated with vancomycin, and 1 blood culture is growing Gram-negative Streptococcus aureus sensitive is pending will follow-up as patient is being treated with imipenem and vancomycin. Patient is now afebrile for 3 days is white counts are trending now close to normal, Patient appears chronically ill unable to provide detailed review of symptoms, patient with a aspiration precaution, only fair with G-tube and has a G-tube in place, will continue to monitor patient is encouraged to participate in PT OT. Review of Systems Review of Systems: ROS unobtainable: Yes unobtainable due to medical condition Exam Narrative: Exam Narrative:
[2020-08-13 17:57] LABS: Glucose Point of Care 82 (65-105)
[2020-08-13] MEDS: LORazepam (*CRX) 0.5 MG TABLET 0.25 MG FEED TUBE (21:32)
[2020-08-14] VITALS (8 sets, daily range): BP systolic 113–120; BP diastolic 68–77; PULSE 77–103; RESP 16–20; TEMP 35.9–36.5; O2SAT 97–100
[2020-08-14] MEDS: dilTIAZem HCL 60 MG TABLET FEED TUBE ×4 (00:51→17:02)
[2020-08-14 01:07] LABS: Glucose Point of Care 82 (65-105)
[2020-08-14] MEDS: METOCLOPRAMIDE HCL 5 MG TABLET FEED TUBE ×4 (05:45→20:32)
[2020-08-14 05:49] LABS: Hematocrit 31.2 % (42.0-52.0); Hemoglobin 9.6 g/dL (14.0-18.0); Mean Corpuscular HGB Conc 30.8 g/dl (32-36); Mean Corpuscular Hemoglobin 24.5 pg (26-34); Mean Corpuscular Volume 79.6 fl (80-100); Mean Platelet Volume 11.7 fl (7.4-10.4); Platelet Count Result 302 k/mm3 (150-375); Red Blood Count 3.92 M/mm3 (4.6-6.20); Red Cell Distribution Width 19.4 % (11.5-14.5); White Blood Count 5.8 K/mm3 (4.5-10.0)
[2020-08-14 06:15] LABS: Anion Gap 5 mmol/L (8-16); Blood Urea Nitrogen 10 mg/dL (9-20); Calcium 8.2 mg/dL (8.4-10.2); Carbon Dioxide 28 mmol/L (22-30); Chloride 104 mmol/L (98-107); Estimated CRCL calculation 104 ml/min; Estimated Glomerular Filt Rate > 60; Glucose 101 mg/dL (75-110); Potassium 4.1 mmol/L (3.4-5.0); Sodium 137 mmol/L (137-145)
[2020-08-14 06:27] LABS: Glucose Point of Care 96 (65-105)
[2020-08-14] MEDS: DORNASE ALFA INH SOLN 1 MG/ML 2.5 ML AMP 2.5 MG INHALATION ×2 (07:33→20:52)
[2020-08-14] MEDS: FOLIC ACID 1 MG TABLET FEED TUBE (08:33)
[2020-08-14] MEDS: COLLAGENASE OINT 30 GM TUBE 1 APPLIC TOPICAL (08:33)
[2020-08-14] MEDS: ENOXAPARIN 40 MG/0.4 ML SYRINGE SUB-Q (08:33)
[2020-08-14] MEDS: busPIRone HCL 10 MG TABLET FEED TUBE ×3 (08:33→17:02)
[2020-08-14] MEDS: MULTIVIT W/ IRON, MINERALS 15 ML LIQUID (*BKC) FEED TUBE (08:33)
[2020-08-14] MEDS: FAMOTIDINE 20 MG TABLET FEED TUBE ×2 (08:33→20:31)
[2020-08-14 11:38] LABS: Glucose Point of Care 91 (65-105)
[2020-08-14 11:38] LABS: Glucose Point of Care 38 (65-105)
--- NOTE | 2020-08-14 11:46 | PC.NURSE ---
Patient blood sugar due Q6. For noon check patient was critically low in R hand. Took another reading in L hand and sugar was within normal limits. Will check sugar again before noon to verify results and will call MD if necessary.
[2020-08-14 11:59] LABS: Glucose Point of Care 100 (65-105)
--- NOTE | 2020-08-14 12:50 | PCDIET ---
Nutrition Follow-Up Complete: Nutrition Diagnosis: Inadequate infusion of enteral nutrition related to multiple medical issues as evidenced by NPO status. Nutrition Goal: Patient to meet estimated nutritional needs. Goal met. Patient tolerating Glucerna 1.2 at 70mL/hr goal rate with 30mL water flush every 4 hours. No issues, per RN. Last recorded weight is 46.7 kg which is increased from last review. +I/O. Bowel Motility: BM x 2 on 08/13/20. Labs Reviewed: Hgb (9.6), Hct (31.2), Cr (0.4), Ca (8.2) Meds Noted: [place], Albuterol, Pepcid, Folic Acid, Novolog, Atrovent, LR at 75mL/hr, Reglan, Centrum, Zosyn, Vancomycin Additional Notes: Deep tissue injuries to left hip, left ischium, left buttocks, left medial toe, right ankle, bilateral feet. Right hip with stage III pressure ulcer. Will continue to monitor with same goal. Nutrition Monitoring and Evaluation: Follow up every Thursday/Thursday.
--- NOTE | 2020-08-14 12:59 | WPDCDIQUERY2 ---
CDI Query Clarification Request 1) -UTI documented -Urine culture negative Please clarify if UTI has been ruled in or ruled out. 2) -Decubitus ulcer has been documented but no site/sites documented -Per ET notes of 08/10 pt with: A stage III pressure ulcer to right hip, and deep tissue injury pressure ulcers to; left hip, left ischium, left buttock, left medial 1st toe, right lateral ankle and foot, left lateral foot and bilateral heels. Please further specify sites of pressure ulcers in progress notes so they can be captured for severity of illness. <Kalee Clarke RN - Last Filed: 08/14/20 13:07> Clarified Diagnosis (1) UTI (urinary tract infection): Code(s): N39.0 - Urinary tract infection, site not specified <Kalee Clarke RN - Last Filed: 08/14/20 13:07> Status: Acute <Kalee Clarke RN - Last Filed: 08/14/20 13:07> Assessment and Plan: Patient was seen by Dr. Luke and urine was without infections and urine culture showed no bacterial growth, UTI was ruled out. <Judy Mittal MD - Last Filed: 09/04/20 11:27> (2) Pressure ulcers of skin of multiple topographic sites: Code(s): L89.90 - Pressure ulcer of unspecified site, unspecified stage <Kalee Clarke RN - Last Filed: 08/14/20 13:07> Status: Acute <Kalee Clarke RN - Last Filed: 08/14/20 13:07> Assessment and Plan: pressure ulcers Left ISchium pressure ulcer deep tissue, black-Eschar possibly necrotic tissue Left Buttock pressure ulcer deep tissue. healthy tissue Left medial toe, 1st pressure ulcer, deep tissue, black-Eschar possibly necrotic tissue Right Hip pressure ulcer Stage III healthy tissue with possibly garnulation Right lateral ankle pressure ulcer, deep tissue, black-Eschar possibly necrotic tissue right lateral foot/ feet pressure unlcer Unstageable left foot/feet pressure ulcer deep tissue black-Eschar possibly necrotic tissue B/L heels pressure ulcers deep tissue, black-Eschar possibly necrotic tissue Patient was seen by wound team and treated and wounds were seen by Dr. Luke did not suspect any infections. <Judy Mittal MD - Last Filed: 09/04/20 11:27>
[2020-08-14] MEDS: LACTATED RINGERS 1,000 ML 75 ML IV CONT (14:35)
--- NOTE | 2020-08-14 15:20 | PC.NURSE ---
Infectious disease has been paged 3 times thus far. Will continue to try and reach the
--- NOTE | 2020-08-14 16:13 | PM.IMPN ---
Progress Note: A&P Assessment and Plan (1) Sepsis: Qualifiers: Sepsis acute organ dysfunction status: without acute organ dysfunction Sepsis type: sepsis due to unspecified organism Qualified Code(s): A41.9 - Sepsis, unspecified organism Code(s): A41.9 - Sepsis, unspecified organism Status: Acute Assessment and Plan: Will do blood culture and urine culture. Give vancomycin and Zosyn. Will continue current treatment monitor labs electrolytes in culture. Blood cultures coagulase negative staph. 08/14/20 16:13 patient is 60-year-old male chronically encephalopathic and resident of nursing with history aspiration pneumonia and Pseudomonas UTI, patient was sent to emergency department with a fever of 102, patient is found to have wound growing Pseudomonas and MRSA, Pseudomonas is sensitive to imipenem treated, and MRSA being treated with vancomycin, and 1 blood culture is growing Gram-negative Streptococcus aureus sensitive is pending will follow-up as patient is being treated with imipenem and vancomycin. Patient is now afebrile for 3 days is white counts are trending now close to normal, Patient appears chronically ill unable to provide detailed review of symptoms, patient with a aspiration precaution, only fair with G-tube and has a G-tube in place, will continue to monitor patient is encouraged to participate in PT OT. 08/14 patient remains clinically stable and white counts are trending however will consult Dr. hua for recommendation for duration of IV antibiotics treatment for Pseudomonas and MRSA, and further recommendation to follow. (2) Hypernatremia: Code(s): E87.0 - Hyperosmolality and hypernatremia Status: Acute Assessment and Plan: Will place IV fluid Sodium is better now. (3) Dehydration: Code(s): E86.0 - Dehydration Status: Acute Assessment and Plan: Will give IV fluids. (4) Pneumonia: Qualifiers: Laterality: unspecified laterality Lung location: unspecified part of lung Pneumonia type: due to unspecified organism Qualified Code(s): J18.9 - Pneumonia, unspecified organism Code(s): J18.9 - Pneumonia, unspecified organism Status: Acute Assessment and Plan: Blood culture, IV antibiotics and repeat chest x-ray in a.m. (5) Hypertension: Qualifiers: Hypertension type: unspecified Qualified Code(s): I10 - Essential (primary) hypertension Code(s): I10 - Essential (primary) hypertension Status: Chronic Assessment and Plan: Monitor closely. (6) UTI (urinary tract infection): Code(s): N39.0 - Urinary tract infection, site not specified Status: Acute Assessment and Plan: Urine culture and IV antibiotic Will monitor cultures and adjust antibiotics according (7) Decubitus ulcer: Code(s): L89.90 - Pressure ulcer of unspecified site, unspecified stage Status: Acute Assessment and Plan: Wound care consult. His urine culture is negative. Waiting for blood culture and final wound culture report. Hemoglobin 9.4 today. If continues to improve med discharged back to group home in the morning. Subjective Date/time seen: 08/14/20 16:13 patient is 60-year-old male chronically encephalopathic and resident of nursing with history aspiration pneumonia and Pseudomonas UTI, patient was sent to emergency department with a fever of 102, patient is found to have wound growing Pseudomonas and MRSA, Pseudomonas is sensitive to imipenem treated, and MRSA being treated with vancomycin, and 1 blood culture is growing Gram-negative Streptococcus aureus sensitive is pending will follow-up as patient is being treated with imipenem and vancomycin. Patient is now afebrile for 3 days is white counts are trending now close to normal, Patient appears chronically ill unable to provide detailed review of symptoms, patient with a aspiration precaution, only fair with G-tube and has a
[2020-08-14 16:57] LABS: Glucose Point of Care 101 (65-105)
[2020-08-14] MEDS: LORazepam (*CRX) 0.5 MG TABLET 0.25 MG FEED TUBE (20:32)
[2020-08-15] VITALS (7 sets, daily range): BP systolic 112–116; BP diastolic 66–74; PULSE 80–105; RESP 14–20; TEMP 36.1–36.6; O2SAT 95–100
[2020-08-15] MEDS: dilTIAZem HCL 60 MG TABLET FEED TUBE ×4 (00:22→16:47)
[2020-08-15 00:32] LABS: Glucose Point of Care 82 (65-105)
[2020-08-15] MEDS: METOCLOPRAMIDE HCL 5 MG TABLET FEED TUBE ×4 (05:41→21:42)
[2020-08-15 06:04] LABS: Glucose Point of Care 88 (65-105)
[2020-08-15 06:40] LABS: Hematocrit 31.2 % (42.0-52.0); Hemoglobin 9.4 g/dL (14.0-18.0); Mean Corpuscular HGB Conc 30.1 g/dl (32-36); Mean Corpuscular Hemoglobin 24.4 pg (26-34); Mean Corpuscular Volume 80.8 fl (80-100); Mean Platelet Volume 11.6 fl (7.4-10.4); Platelet Count Result 345 k/mm3 (150-375); Red Blood Count 3.86 M/mm3 (4.6-6.20); Red Cell Distribution Width 19.7 % (11.5-14.5)
[2020-08-15 06:55] LABS: Anion Gap 4 mmol/L (8-16); Blood Urea Nitrogen 12 mg/dL (9-20); Calcium 8.4 mg/dL (8.4-10.2); Carbon Dioxide 30 mmol/L (22-30); Chloride 103 mmol/L (98-107); Estimated CRCL calculation 85 ml/min; Estimated Glomerular Filt Rate > 60; Glucose 87 mg/dL (75-110); Potassium 4.4 mmol/L (3.4-5.0); Sodium 137 mmol/L (137-145)
[2020-08-15] MEDS: LACTATED RINGERS 1,000 ML 75 ML IV CONT (08:39)
[2020-08-15] MEDS: COLLAGENASE OINT 30 GM TUBE 1 APPLIC TOPICAL (08:40)
[2020-08-15] MEDS: ENOXAPARIN 40 MG/0.4 ML SYRINGE SUB-Q (08:40)
[2020-08-15] MEDS: busPIRone HCL 10 MG TABLET FEED TUBE ×3 (08:40→16:47)
[2020-08-15] MEDS: MULTIVIT W/ IRON, MINERALS 15 ML LIQUID (*BKC) FEED TUBE (08:41)
[2020-08-15] MEDS: FOLIC ACID 1 MG TABLET FEED TUBE (08:41)
[2020-08-15] MEDS: FAMOTIDINE 20 MG TABLET FEED TUBE ×2 (08:42→21:41)
[2020-08-15] MEDS: DORNASE ALFA INH SOLN 1 MG/ML 2.5 ML AMP 2.5 MG INHALATION ×2 (08:55→19:26)
[2020-08-15 12:14] LABS: Glucose Point of Care 84 (65-105)
--- NOTE | 2020-08-15 14:50 | PM.IMPN ---
Progress Note: A&P Assessment and Plan (1) Sepsis: Qualifiers: Sepsis acute organ dysfunction status: without acute organ dysfunction Sepsis type: sepsis due to unspecified organism Qualified Code(s): A41.9 - Sepsis, unspecified organism Code(s): A41.9 - Sepsis, unspecified organism Status: Acute Assessment and Plan: Will do blood culture and urine culture. Give vancomycin and Zosyn. Will continue current treatment monitor labs electrolytes in culture. Blood cultures coagulase negative staph. 08/15/20 14:50 patient is 60-year-old male chronically encephalopathic and resident of nursing with history aspiration pneumonia and Pseudomonas UTI, patient was sent to emergency department with a fever of 102, patient is found to have wound growing Pseudomonas and MRSA, Pseudomonas is sensitive to imipenem treated, and MRSA being treated with vancomycin, and 1 blood culture is growing Gram-negative Streptococcus aureus sensitive is pending will follow-up as patient is being treated with imipenem and vancomycin. Patient is now afebrile for 3 days is white counts are trending now close to normal, Patient appears chronically ill unable to provide detailed review of symptoms, patient with a aspiration precaution, only fair with G-tube and has a G-tube in place, will continue to monitor patient is encouraged to participate in PT OT. 08/14 patient remains clinically stable and white counts are trending down, will consult Dr. hua for recommendation for duration of IV antibiotics treatment for Pseudomonas and MRSA, and further recommendation to follow. 08/15 patient remains clinically stable he has no fever and white counts are trending down close to normal, will consult Dr. hua for recommendation for duration of IV antibiotics treatment for Pseudomonas and MRSA, and further recommendation to follow. (2) Hypernatremia: Code(s): E87.0 - Hyperosmolality and hypernatremia Status: Acute Assessment and Plan: Will place IV fluid Sodium is better now. (3) Dehydration: Code(s): E86.0 - Dehydration Status: Acute Assessment and Plan: Will give IV fluids. (4) Pneumonia: Qualifiers: Laterality: unspecified laterality Lung location: unspecified part of lung Pneumonia type: due to unspecified organism Qualified Code(s): J18.9 - Pneumonia, unspecified organism Code(s): J18.9 - Pneumonia, unspecified organism Status: Acute Assessment and Plan: Blood culture, IV antibiotics and repeat chest x-ray in a.m. (5) Hypertension: Qualifiers: Hypertension type: unspecified Qualified Code(s): I10 - Essential (primary) hypertension Code(s): I10 - Essential (primary) hypertension Status: Chronic Assessment and Plan: Monitor closely. (6) UTI (urinary tract infection): Code(s): N39.0 - Urinary tract infection, site not specified Status: Acute Assessment and Plan: Urine culture and IV antibiotic Will monitor cultures and adjust antibiotics according (7) Decubitus ulcer: Code(s): L89.90 - Pressure ulcer of unspecified site, unspecified stage Status: Acute Assessment and Plan: Wound care consult. His urine culture is negative. Waiting for blood culture and final wound culture report. Hemoglobin 9.4 today. If continues to improve med discharged back to assisted in the morning. Subjective Date/time seen: 08/15/20 14:50 patient is 60-year-old male chronically encephalopathic and resident of nursing with history aspiration pneumonia and Pseudomonas UTI, patient was sent to emergency department with a fever of 102, patient is found to have wound growing Pseudomonas and MRSA, Pseudomonas is sensitive to imipenem treated, and MRSA being treated with vancomycin, and 1 blood culture is growing Gram-negative Streptococcus aureus sensitive is pending will follow-up as patient is being treated with
[2020-08-15 18:08] LABS: Glucose Point of Care 103 (65-105)
[2020-08-15] MEDS: LORazepam (*CRX) 0.5 MG TABLET 0.25 MG FEED TUBE (21:42)
[2020-08-16] MEDS: dilTIAZem HCL 60 MG TABLET FEED TUBE ×3 (00:19→14:32)
[2020-08-16 00:39] LABS: SARS-CoV-2 RNA PCR Negative
[2020-08-16 02:51] LABS: Glucose Point of Care 100 (65-105)
[2020-08-16] MEDS: LACTATED RINGERS 1,000 ML 75 ML IV CONT (03:05)
[2020-08-16] MEDS: METOCLOPRAMIDE HCL 5 MG TABLET FEED TUBE ×2 (05:33→14:32)
[2020-08-16 06:00] VITALS: BP 97/56; PULSE 100; RESP 12; TEMP 36.8; O2SAT 97
[2020-08-16 06:17] LABS: Anion Gap 5 mmol/L (8-16); Blood Urea Nitrogen 12 mg/dL (9-20); Calcium 8.5 mg/dL (8.4-10.2); Carbon Dioxide 26 mmol/L (22-30); Chloride 102 mmol/L (98-107); Estimated CRCL calculation 89 ml/min; Estimated Glomerular Filt Rate > 60; Glucose 111 mg/dL (75-110); Potassium 4.2 mmol/L (3.4-5.0); Sodium 133 mmol/L (137-145)
[2020-08-16 06:24] LABS: Hematocrit 30.5 % (42.0-52.0); Hemoglobin 9.3 g/dL (14.0-18.0); Mean Corpuscular HGB Conc 30.5 g/dl (32-36); Mean Corpuscular Hemoglobin 24.2 pg (26-34); Mean Corpuscular Volume 79.2 fl (80-100); Mean Platelet Volume 10.8 fl (7.4-10.4); Platelet Count Result 375 k/mm3 (150-375); Red Blood Count 3.85 M/mm3 (4.6-6.20); Red Cell Distribution Width 19.8 % (11.5-14.5); White Blood Count 5.8 K/mm3 (4.5-10.0)
[2020-08-16 06:30] LABS: Glucose Point of Care 95 (65-105)
[2020-08-16] MEDS: DORNASE ALFA INH SOLN 1 MG/ML 2.5 ML AMP 2.5 MG INHALATION (08:34)
[2020-08-16 08:52] VITALS: PULSE 99; RESP 20; O2SAT 98
[2020-08-16 08:53] VITALS: PULSE 102; RESP 20
[2020-08-16] MEDS: busPIRone HCL 10 MG TABLET FEED TUBE ×2 (10:03→14:32)
[2020-08-16] MEDS: ENOXAPARIN 40 MG/0.4 ML SYRINGE SUB-Q (10:03)
[2020-08-16] MEDS: FOLIC ACID 1 MG TABLET FEED TUBE (10:03)
[2020-08-16] MEDS: MULTIVIT W/ IRON, MINERALS 15 ML LIQUID (*BKC) FEED TUBE (10:04)
[2020-08-16] MEDS: COLLAGENASE OINT 30 GM TUBE 1 APPLIC TOPICAL (10:05)
[2020-08-16] MEDS: FAMOTIDINE 20 MG TABLET FEED TUBE (10:06)
--- NOTE | 2020-08-16 12:10 | WPDINFPN2 ---
Progress Note: A&P Assessment and Plan (1) Coag negative Staphylococcus bacteremia: Code(s): R78.81 - Bacteremia; B95.7 - Other staphylococcus as the cause of diseases classified elsewhere Status: Acute Assessment and Plan: 1. Bacteremia, skin contaminant 2. Multiple decubitus ulcers, none infected 3. Fever, on admission, resolved REC Stop antibiotics, wound care, ok return to F Subjective Date/time seen: 08/16/20 12:10 Objective Data Vital Signs Vital Signs: Vital Signs - 24 hr 08/15/20 14:00 08/15/20 19:28 08/15/20 19:29 Temperature 36.4 C Pulse Rate 97 102 H Respiratory Rate 18 20 Blood Pressure 116/74 Pulse Oximetry 100 95 08/15/20 19:35 08/15/20 20:30 08/16/20 06:00 Temperature 36.6 C 36.8 C Pulse Rate 100 105 H 100 Respiratory Rate 20 14 12 Blood Pressure 112/66 97/56 L Pulse Oximetry 100 97 08/16/20 08:52 08/16/20 08:53 Temperature Pulse Rate 99 102 H Respiratory Rate 20 20 Blood Pressure Pulse Oximetry 98 Intake/Output Intake/Output: Intake & Output 08/13/20 08/14/20 08/15/20 08/16/20 23:59 23:59 23:59 23:59 Intake Total 3740 1700 2790 1963 Output Total 2450 2800 3375 250 Balance 9350 1100 -543 1713 Meds/Results Medications: Active Medications Generic Name Dose Route Start Last Admin Trade Name Freq PRN Reason Stop Dose Admin Acetaminophen 650 mg 08/09/20 14:35 08/11/20 04:34 Acetaminophen Elixir 325 Mg/10.15 Ml Udc PO 650 mg Q6H PRN Administration Pain, Mild Hydrocodone Bitart/Acetaminophen 1 tab 08/09/20 14:35 Hydrocodone/Acetaminophen (*Crx) 7.5-325 Mg Tablet PO Q6H PRN Pain, Severe Albuterol 2.5 mg 08/09/20 14:44 08/10/20 07:30 Albuterol Sulfate Neb 2.5 Mg/0.5 Ml Inh INHALATION 09/08/20 14:45 2.5 mg QID PRN Administration Shortness Of Breath Buspirone HCl 10 mg 08/09/20 17:00 08/16/20 10:03 Buspirone Hcl 10 Mg Tablet FEED TUBE 10 mg TID JERAMIE Administration Collagenase 1 applic 08/10/20 09:00 08/16/20 10:05 Collagenase Oint 30 Gm Tube TOPICAL 1 applic DAILY JERAMIE Administration Dextrose 12.5 gm 08/13/20 14:08 Dextrose 50% 25 Gm/50 Ml Syringe IV PUSH PRN PRN Hypoglycemia Protocol Diltiazem HCl 60 mg 08/09/20 18:00 08/16/20 05:33 Diltiazem Hcl 60 Mg Tablet FEED TUBE 60 mg Q6HR JERAMIE Administration Dornase Demetris 2.5 mg 08/09/20 20:00 08/16/20 08:34 Dornase Demetris Inh Soln 1 Mg/Ml 2.5 Ml Amp INHALATION 2.5 mg Q12HRT JERAMIE Administration Enoxaparin Sodium 40 mg 08/10/20 09:00 08/16/20 10:03 Enoxaparin 40 Mg/0.4 Ml Syringe SUB-Q 40 mg DAILY JERAMIE Administration Famotidine 20 mg 08/09/20 21:00 08/16/20 10:06 Famotidine 20 Mg Tablet FEED TUBE 20 mg Q12HR JERAMIE Administration Folic Acid 1 mg 08/10/20 09:00 08/16/20 10:03 Folic Acid 1 Mg Tablet FEED TUBE 1 mg DAILY JERAMIE Administration Glucagon 1 mg 08/13/20 14:08 Glucagon For Inj 1 Mg Vial IM PRN PRN Hypoglycemia Protocol Glucose 15 gm 08/13/20 14:08 Glucose Oral Gel 15 Gm Of Glucse In 37.5 Gm Tube PO PRN PRN Hypoglycemia Protocol Lactated Ringer's 1,000 mls @ 75 mls/hr 08/09/20 07:00 08/16/20 07:55 Lr - Lactated Ringers Iv IV CONT Not Given .[id number] JERAMIE Dextrose 1,000 mls @ 100 mls/hr 08/13/20 14:08 Dextrose 5% 1,000 Ml IVPB PRN PRN Hypoglycemia Protocol Insulin Aspart 3 - 6 units 08/09/20 17:00 08/16/20 07:56 Insulin Aspart (*Bkc) 100 Units/Ml SUB-Q Not Given TIDWM JERAMIE Protocol Ipratropium Randolph 0.5 mg 08/09/20 14:35 08/10/20 07:31 Ipratropium Br 0.02% Inh Soln 0.5 Mg/2.5 Ml Vial INHALATION 0.5 mg QID PRN Administration Shortness Of Breath Lorazepam 0.25 mg 08/09/20 21:00 08/15/20 21:42 Lorazepam (*Crx) 0.5 Mg Tablet FEED TUBE 0.25 mg HS JERAMIE Administration Metoclopramide HCl 5 mg 08/09/20 16:30 08/16/20 05:33 Metoclopramide Hc
--- NOTE | 2020-08-16 12:57 | PM.DS ---
DS: Admitting Diagnosis Admitting Diagnosis Admitting Diagnosis: Chief Complaint: Fever in senior care DS: Discharge Diagnosis Discharge Diagnosis (1) Sepsis: Qualifiers: Sepsis acute organ dysfunction status: without acute organ dysfunction Sepsis type: sepsis due to unspecified organism Qualified Code(s): A41.9 - Sepsis, unspecified organism Code(s): A41.9 - Sepsis, unspecified organism Status: Acute Assessment and Plan: Will do blood culture and urine culture. Give vancomycin and Zosyn. Will continue current treatment monitor labs electrolytes in culture. Blood cultures coagulase negative staph. 08/15/20 14:50 patient is 60-year-old male chronically encephalopathic and resident of nursing with history aspiration pneumonia and Pseudomonas UTI, patient was sent to emergency department with a fever of 102, patient is found to have wound growing Pseudomonas and MRSA, Pseudomonas is sensitive to imipenem treated, and MRSA being treated with vancomycin, and 1 blood culture is growing Gram-negative Streptococcus aureus sensitive is pending will follow-up as patient is being treated with imipenem and vancomycin. Patient is now afebrile for 3 days is white counts are trending now close to normal, Patient appears chronically ill unable to provide detailed review of symptoms, patient with a aspiration precaution, only fair with G-tube and has a G-tube in place, will continue to monitor patient is encouraged to participate in PT OT. 08/14 patient remains clinically stable and white counts are trending down, will consult Dr. hua for recommendation for duration of IV antibiotics treatment for Pseudomonas and MRSA, and further recommendation to follow. 08/15 patient remains clinically stable he has no fever and white counts are trending down close to normal, will consult Dr. hua for recommendation for duration of IV antibiotics treatment for Pseudomonas and MRSA, and further recommendation to follow. (2) Hypernatremia: Code(s): E87.0 - Hyperosmolality and hypernatremia Status: Acute Assessment and Plan: Will place IV fluid Sodium is better now. (3) Dehydration: Code(s): E86.0 - Dehydration Status: Acute Assessment and Plan: Will give IV fluids. (4) Pneumonia: Code(s): J18.9 - Pneumonia, unspecified organism Status: Acute Assessment and Plan: Blood culture, IV antibiotics and repeat chest x-ray in a.m. (5) Hypertension: Qualifiers: Hypertension type: unspecified Qualified Code(s): I10 - Essential (primary) hypertension Code(s): I10 - Essential (primary) hypertension Status: Chronic Assessment and Plan: Monitor closely. (6) UTI (urinary tract infection): Code(s): N39.0 - Urinary tract infection, site not specified Status: Acute Assessment and Plan: Urine culture and IV antibiotic Will monitor cultures and adjust antibiotics according (7) Decubitus ulcer: Code(s): L89.90 - Pressure ulcer of unspecified site, unspecified stage Status: Acute Assessment and Plan: Wound care consult. His urine culture is negative. Waiting for blood culture and final wound culture report. Hemoglobin 9.4 today. If continues to improve med discharged back to senior care in the morning. DS: Summary Hospital Course Reason for hospitalization: Chief Complaint: Fever in senior care Narrative: History is extremely limited and is mainly taken from ER notes and previous admission for in the hospitals. History is also taken from senior care notes. History limited because patient is nonverbal. Patient was sent to [facility] for the evaluation of fever previously in the recent admissions patient had pneumonias multiple time and also have Pseudomonas UTI. At present time patient is febrile, has mild shortness of breath, denies any chest pain. No abdominal pain no nausea vomiting. Hos
[2020-08-16 14:00] VITALS: BP 100/58; PULSE 98; RESP 16; TEMP 36.7; O2SAT 99
[2020-08-16 15:05] LABS: Glucose Point of Care 93 (65-105)
--- NOTE | 2020-08-16 16:55 | CONS_ITS ---
DATE OF CONSULTATION: 08/16/2020 REASON FOR CONSULTATION: Bacteremia. HISTORY OF PRESENT ILLNESS: 60-year-old male who cannot provide any history. He has chronic encephalopathy. No tracheostomy but with a GJ feeding tube. He has multiple decubitus ulcers and was here with a complicated urinary tract infection in the past for which I saw him. He was sent from his assisted on August 09 with fever of acute onset. No other findings at his assisted. Here he had a temperature of 38.3. He has been given piperacillin and vancomycin, now day #8. Single blood culture positive. Consultation requested. No events here in the hospital. No hypotension. No need for pressors. No respiratory compromise. He has not required previous interventions for his decubitus ulcers from an operative standpoint. ALLERGIES: NONE KNOWN. HABITS: No tobacco. No alcohol. PRESENT MEDICATIONS: Home medication list reviewed. No immunosuppressants, nor is he on any here. PAST MEDICAL HISTORY: In addition to the above, prior tracheostomy, PAT, hypertension, hydrocephalus, dysphagia, autonomic dysfunction, COPD, anxiety, anemia, chronic blood-loss anemia, details not available. REVIEW OF SYSTEMS: 14-point review not obtainable from the patient due to aphasia. FAMILY HISTORY: Not pertinent to his present illness. SOCIAL HISTORY: History of drug use. custodial resident. No family at the bedside. PHYSICAL EXAMINATION: GENERAL: Middle-aged male who appears cachectic, much older than his actual age. No acute distress. VITAL SIGNS: Afebrile since his emergency room initial temperature. Currently 100, 12, 97/56, 97% on room air. SKIN: Decreased turgor. Warm and dry. No rashes. No erythroderma. He has multiple 1 cm or less decubitus ulcers over lateral hips and bony prominences over both feet. He also has, over his heels, 3 to 4 cm well demarcated, firm, darkened skin, suggesting resolving hematoma in the deep skin structures. He has no evidence of erythema, crepitus, tenderness, warmth, sinus tract, odor nor necrosis. NODES: No cervical adenopathy. EENT: The conjunctivae are clear. There is no icterus. Mucous membranes well hydrated. Teeth in fair repair. NECK: Thin with muscle mass loss. No thyromegaly. LUNGS: On tidal respirations, clear to auscultation and percussion. CARDIAC: Regular rate and rhythm. Soft S1, S2. No murmurs. No bruits. ABDOMEN: Feeding tube in place. No organomegaly. No masses. Nondistended. EXTREMITIES: No clubbing, cyanosis, edema. He has muscle wasting and severe flexion contractures. LABORATORY DATA: His white blood cell count consistently normal. Hemoglobin stable at 9.3, platelets are 375. No differential done recently, earlier showed no abnormalities. Prothrombin time normal. His chemistry panel normal other than a glucose of 111 and sodium 133. His CRP was 12.1, not repeated. His urinalysis, multiple abnormalities in a catheterized specimen as one would expect. Coronavirus assay had been done 3 times this admission, all nonreactive. Blood culture 1/2 sets Staphylococcus not aureus. Urine culture also on admission, no growth. Wound culture with MRSA and pseudomonas, not specified site. RADIOLOGY: Chest x-ray, no active disease. CT of the pelvis showed heterotopic bone formation at the left hip. No osteomyelitis. ASSESSMENT: 1. Staphylococcus bacteremia, skin contaminant. Needs no further treatment evaluation. 2. Multiple small decubitus ulcers, not infected. 3. Encephalopathy, chronic. 4. Pyuria, no infection currently. 5. Methicillin-resistant Staphylococcus aureus, colonized. RECOMMENDATIONS: 1. Local wound care. 2. From my standpoint, no need for surgical debridement. 3. No
== END 2020-08-16 16:50 | DRG 871 ==
LOC: ANHED 06:34 → ANHIMU 14:07 → ANH2MED 08-10 14:59 → ANH3MED 08-16 02:52 → ANH2MED 08-21 11:08 → ANH3MED 08-21 11:08 → ANHIMU 08-21 11:08
PROVIDERS: Family Medicine; Internal Medicine; Admitting Provider Internal Medicine; Emergency Provider Emergency Medicine; PCP Internal Medicine; Visit Provider Family Medicine
DX: A41.9 Sepsis, unspecified organism (principal); J18.9 Pneumonia, unspecified organism; J69.0 Pneumonitis due to inhalation of food and vomit; L89.213 Pressure ulcer of right hip, stage 3; E87.0 Hyperosmolality and hypernatremia; G93.40 Encephalopathy, unspecified; R64 Cachexia; Z68.1 Body mass index [BMI] 19.9 or less, adult; Z22.322 Carrier or suspected carrier of Methicillin resistant Staphylococcus aureus; R82.81 Pyuria; Z20.822 Contact with and (suspected) exposure to COVID-19; E86.0 Dehydration; D64.9 Anemia, unspecified; J44.9 Chronic obstructive pulmonary disease, unspecified; F41.9 Anxiety disorder, unspecified; R13.10 Dysphagia, unspecified; L89.329 Pressure ulcer of left buttock, unspecified stage; L89.516 Pressure-induced deep tissue damage of right ankle; L89.626 Pressure-induced deep tissue damage of left heel; L89.616 Pressure-induced deep tissue damage of right heel; L97.519 Non-pressure chronic ulcer of other part of right foot with unspecified severity; L89.896 Pressure-induced deep tissue damage of other site; Z93.1 Gastrostomy status
CPT/HCPCS: 36415; 71045; 74177; 80048; 80053; 80202; 81001; 82565; 82948; 83605; 85025; 85027; 85610; 85730; 86140; 87040; 87070; 87077; 87086; 87186; 87205; 87804; 93005; 94640; 96365; 96367; 97161; 97167; 99285; A9270; C9803; J1650; J2543; J3370; J7030; J7120; Q9967; U0003; U0005

== ENCOUNTER 2020-09-01 14:16 | Inpatient (IN) | payer MEDICARE, MEDICAID, SELFPAY ==
[2020-09-01] VITALS (7 sets, daily range): BP systolic 96–110; BP diastolic 59–75; PULSE 117–140; RESP 16–38; TEMP 36.9–38.7; O2SAT 93–97; BMI 17.6
--- NOTE | ~2020-09-01 | CT_ITS ---
EXAMINATION: CT abdomen wo con EXAM DATE: 09/03/2020 13:17 INDICATION: Verify G-tube and J-tube placement . TECHNIQUE: Spiral CT of the abdomen was performed without contrast. Axial, coronal and sagittal milton ges were reviewed. The dose-length product (DLP) for this examination was 224.64 mGy-cm. The exposu re was tailored according to patient size (auto mA exposure control), and iterative reconstruction (A SIR) was used as additional dose reduction technique. Comparison is made to prior examination from 04/2021. FINDINGS: The gastrostomy and jejunostomy tubes are reidentified, they appear unchanged and in expect ed position. No free intraperitoneal gas. The liver, spleen, adrenal glands and pancreas are unremar kable. Gallbladder is unremarkable. No biliary obstruction. There is no nephrolithiasis or hydrone phrosis. There is no retroperitoneal lymphadenopathy. Probable identification of the appendix, with a blind-ending tubular structure identified in the imag ed portion of the right lower quadrant, measuring about 8 mm in diameter and with adjacent inflammati on. There is also suspected to be edema of the cecal base, with the wall of this measuring about 8 mm in thickness. Could be cecal colitis, with secondary inflammation of the appendix. Acute appendiciti s also possible, although appendix does not appear obstructed or fluid-filled, but its size has doubl ed in diameter compared to 4 mm last month. Findings were measured on axial image 116, 114. There is interval progression in the right basilar predominant multifocal airspace disease consistent with pneumonia. There is expected amount of colonic stool. No free intraperitoneal gas. The heart is normal in si ze. There are no pericardial or pleural effusions. There are no osteoblastic or osteolytic lesions identified. IMPRESSION: 1. Incompletely imaged cecal colitis and/or appendicitis. Check for right lower quadrant tenderness. CT abdomen pelvis with contrast might add to specificity. 2. Gastrostomy and jejunostomy tubes are in place. 3. Worsening right basilar predominant multifocal airspace disease consistent with pneumonia. I discussed possible appendicitis, worsening pneumonia with Anders Tillman MD at 09/03/2020 13:35 C DT. Patient is on broad-spectrum antibiotics and surgical consult has already been called. Reviewed, dictated and finalized at location A. IMPRESSION: 1. Incompletely imaged cecal colitis and/or appendicitis. Check for right lowe r quadrant tenderness. CT abdomen pelvis with contrast might add to specificity . 2. Gastrostomy and jejunostomy tubes are in place. 3. Worsening right basilar predominant multifocal airspace disease consistent with pneumonia. I discussed possible appendicitis, worsening pneumonia with Anders Tillman MD at 09/03/2020 13:35 CDT. Patient is on broad-spectrum antibiotics and surgical consult has already been called.
--- NOTE | ~2020-09-01 | CT_ITS ---
EXAMINATION: CT abdomen pelvis w con INDICATION: Abdominal pain, possible appendicitis TECHNIQUE: Computed tomographic images of the abdomen and pelvis were obtained after the administrati on of 100 cc of Omnipaque 350 intravenous contrast. The dose-length product (DLP) was 564.28 mGy-cm. Automated exposure control and iterative reconstruction technique were employed. COMPARISON: [address], 08/09/2020 FINDINGS: Airspace opacities of the lower lobes, right greater than left, are unchanged. The heart si ze is normal. There are gastrostomy and jejunostomy tubes, unchanged. A stable 11 mm cyst is noted in the liver near the gallbladder fossa. The spleen, pancreas, gallbladder, and adrenal glands are norm al. The kidneys are unremarkable. No pathologically enlarged abdominal or pelvic lymph nodes are iden tified. There is calcified atherosclerosis of the aorta and many of the other arteries. There is no f ree intraperitoneal gas or evidence of bowel obstruction. There is wall thickening of the cecum. The appendix appears normal. A Murphy catheter is present in the bladder. There is wall thickening of the urinary bladder. Heterotopic ossification is again seen surrounding the left proximal femur, likely r elated to immobility. IMPRESSION: 1. Inflammatory change of the cecum which could reflect colitis. Appendix appears normal. 2. Airspace opacities of the lower lobes, right greater than left, consistent with pneumonia. 3. Wall thickening of the urinary bladder which may reflect cystitis. Reviewed, dictated and finalized at location A. IMPRESSION: 1. Inflammatory change of the cecum which could reflect colitis. Appendix appea rs normal. 2. Airspace opacities of the lower lobes, right greater than left, consistent w ith pneumonia. 3. Wall thickening of the urinary bladder which may reflect cystitis.
--- NOTE | ~2020-09-01 | XR_ITS ---
XR foot RT 2V DATE: 09/02/2020 08:55 INDICATION: Right lateral foot wounds TECHNIQUE: Portable AP and lateral views of right foot COMPARISON: None FINDINGS: There is diffuse osteopenia. There is prominent soft tissue swelling of the forefoot. 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 The lateral cortex of the fourth metatarsal neck and head is not clearly defined, possibly due to bon e destruction. Osteomyelitis is not excluded. Consider 3 phase radionuclide bone scan for correlation . No fracture or dislocation, periosteal reaction or bone destruction is noted otherwise. 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
--- NOTE | ~2020-09-01 | XR_ITS ---
EXAMINATION: XR chest 1V portable DATE: 09/01/2020 15:16 INDICATION: Dyspnea. TECHNIQUE: A single frontal view of the chest was obtained. COMPARISON: Chest single view 08/13/2020, chest CT 07/20/2020 FINDINGS: The patient is rotated to his right. There are scattered small nodules in all right lung zo addy. No pleural effusion or pneumothorax. The heart size is normal. There are old healed bilateral ri b fractures. IMPRESSION: 1. Small nodules in right lung, likely pneumonia. Reviewed, dictated and finalized at location A.
--- NOTE | ~2020-09-01 | XR_ITS ---
XR foot LT 2V DATE: 09/02/2020 08:42 INDICATION: Foot wounds TECHNIQUE: 3 portable limited views COMPARISON: None FINDINGS: Diffuse osteopenia. No fracture or dislocation, periosteal reaction or bone destruction is evident. No radiopaque foreign body or subcutaneous emphysema. IMPRESSION: Osteopenia Reviewed, dictated and finalized at location A. IMPRESSION: Osteopenia
--- NOTE | 2020-09-01 14:35 | ECG_ITS ---
Measurements Intervals [place] Rate: 139 P: 37 MD: 122 QRS: -46 QRSD: 78 T: 65 QT: 301 QTc: 459 Interpretive Statements SINUS TACHYCARDIA LEFT AXIS DEVIATION CANNOT RULE OUT SEPTAL INFARCT, AGE INDETERMINATE BORDERLINE ST-T WAVE ABNORMALITY- HIGH LATERAL LEADS BASELINE ARTIFACT- V5 ABNORMAL ECG Electronically Signed On 09-01-2020 15:07:26 CDT by Leon Balderas D.O.
[2020-09-01] MEDS: SODIUM CHLORIDE 0.9% IV 1,000 ML 999 ML IV CONT (14:49)
[2020-09-01 14:50] LABS: Alveolar/Arterial O2 Gradient 216.7 mmHg; Base Excess ABG -7.5 mEq/l (+/-2.0); Carboxyhemoglobin 0.7 % THb (0-2.0); Fractional Inspired Oxygen 40 %; HCO3 ABG 15.8 mEq/l (22.0-26.0); Methemoglobin ABG 0.6 %THb (0-1.5); Oxygen Content ABG 6.1 %vol (16.0-22.0); Oxyhemoglobin 77.6 % THb (90.0-100.0); PO2 FiO2 Ratio Arterial Blood 1.04 %; Reduced Hemoglobin 21.1 %THb (0-5.0); pH ABG 7.452 (7.350-7.450)
[2020-09-01 14:52] LABS: Device NASAL CANNULA; Oxygen Saturation ABG 81.3 % (95.0-100.0); PCO2 ABG 23.2 mmHg (35.0-45.0); PO2 ABG 41.8 mmHg (80.0-100.0); Site Drawn RIGHT BRACHIAL; Total Hemoglobin 5.5 g/dL (12.0-18.0)
[2020-09-01 14:56] LABS: Basophils Absolute Auto 0.1 K/mm3 (0.0-0.1); Basophils Percent Auto 0.4 % (0.2-1.2); Hematocrit 36.3 % (42.0-52.0); Hemoglobin 10.5 g/dL (14.0-18.0); Immature Granulocyte Absolute 0.21 K/mm3 (0.00-0.031); Immature Platelet Fraction Pct 8.9 % (0.9-11.2); Lymphocytes Absolute Auto 3.01 K/mm3 (0.9-3.2); Lymphocytes Percent Auto 14.5 % (18.3-44.2); Mean Corpuscular HGB Conc 28.9 g/dl (32-36); Mean Corpuscular Hemoglobin 24.7 pg (26-34); Mean Corpuscular Volume 85.4 fl (80-100); Monocytes Absolute Auto 1.6 K/mm3 (0.1-0.6); Monocytes Percent Auto 7.8 % (2.6-8.5); Neutrophils Absolute Auto 15.9 K/mm3 (1.3-6.7); Neutrophils Percent Auto 76.3 % (45.5-73.1); Platelet Count Result 230 k/mm3 (150-375); Red Blood Count 4.25 M/mm3 (4.6-6.20); Red Cell Distribution Width 21.2 % (11.5-14.5); White Blood Count 20.8 K/mm3 (4.5-10.0)
[2020-09-01 15:00] LABS: Add Urine Microscopic? YES; Amorphous Sediment Urine Few; Appearance Urine Cloudy (Clear); Bacteria Urine Trace /hpf; Bilirubin Urine Negative (Negative); Budding Yeast Urine Present /hpf; Color Urine Amber (Yellow); Glucose Urine UA Negative (Negative); Ketones Urine Negative (Negative); Leukocyte Esterase Ur 2+ LEU/UL (Negative); Mucus Urine Rare /lpf; Nitrate Urine Negative (Negative); Protein Urine 1+ mg/dL (Negative); Specific Grav Ur 1.024 (1.001-1.035); Squamous Epithelial Cell Urine Rare /hpf (Few)
[2020-09-01 15:02] LABS: Lactic Acid Reflex 1.9 mmol/L (0.7-2.1)
[2020-09-01 15:03] LABS: INR 1.3; Platelet Estimate Adequate (Adequate); Prothrombin Time 16.6 Seconds (11.1-14.7)
[2020-09-01 15:04] LABS: Blood Urine Negative (Negative); Hypochromasia 1+ (NORMAL); Partial Thromboplastin Time 41.7 SECONDS (22.3-36.8); Stomatocytes 1+ (NORMAL)
[2020-09-01 15:05] LABS: Alanine Aminotransferase 23 U/L (4-50); Albumin Level 3.5 g/dL (3.5-5.1); Alkaline Phosphatase 131 U/L (38-126); Anion Gap 7 mmol/L (8-16); Aspartate Amino Transferase 36 U/L (17-59); Bilirubin,Total 0.7 mg/dL (0.2-1.3); Blood Urea Nitrogen 63 mg/dL (9-20); Calcium 8.2 mg/dL (8.4-10.2); Carbon Dioxide 35 mmol/L (22-30); Chloride 111 mmol/L (98-107); Estimated CRCL calculation 47 ml/min; Estimated Glomerular Filt Rate > 60; Glucose 124 mg/dL (75-110); Potassium 3.9 mmol/L (3.4-5.0); Sodium 153 mmol/L (137-145)
[2020-09-01 15:41] LABS: CRP 32.9 mg/dL (<1.0)
--- NOTE | 2020-09-01 16:22 | ED.SOB ---
HPI - SOB/Dyspnea General Chief Complaint: Shortness of Breath/Dyspnea Stated Complaint: SOB/FEVER Time Seen by Provider: 09/01/20 14:17 History of Present Illness HPI Narrative: Patient is a 60-year-old male who presents from [facility] with respiratory distress and fever. Patient found to be newly hypoxic with an oxygen requirement of 4 L. He does have COPD. He is chronically bedbound. He is unable to provide a history. Patient has had recurrent hospitalizations at this hospital with the most recent discharge being Related Data Home Medications Medication Instructions Recorded Confirmed ipratropium-albuterol 3 ml INHALATION QID PRN 05/09/20 09/01/20 acetaminophen 650 mg PO Q6H PRN 05/24/20 09/01/20 Santyl 1 applic TOPICAL DAILY 07/20/20 09/01/20 hydrocodone-acetaminophen 1 tablet PO TID PRN 07/20/20 09/01/20 lorazepam [Ativan] 0.25 mg FEEDING TUBE HS 07/20/20 09/01/20 polyethylene glycol 3350 [Miralax] 17 g PO DAILY PRN 08/09/20 09/01/20 lactose-reduced food with fibr 70 ea FEEDING TUBE USEASDIRECTD 09/01/20 09/01/20 [Jevity 1.5 Adrien] Allergies Allergy/AdvReac Type Severity Reaction Status Date / Time No Known Allergies Allergy Verified 07/20/20 10:52 [facility] Past Medical History Medical History (Updated 09/01/20 @ 23:42 by Wilver Loving MD) Anemia Anxiety Chronic obstructive pulmonary disease Depression Disorder of autonomic nervous system Dumping syndrome Dysphagia Patient has G-tube and J-tube in place. Encephalopathy chronic Gastroesophageal reflux disease Hydrocephalus Hypertension Paroxysmal tachycardia Surgical History Surgical History (Updated 09/01/20 @ 22:03 by Dot Strong PA-C) History of gastrostomy tube placement History of jejunostomy tube placement History of tracheostomy x2 Family History Family History Mother Endometrial cancer Father Hypertension Sibling Seizure Social History Social History (Updated 09/01/20 @ 22:05 by Dot Strong PA-C) Social History: Nonsmoker. Drank alcohol heavily in the past. Uncertain if he has ever used illicit substances. He is a resident at [facility]. Chronically debilitated, bedbound, and essentially nonverbal. Alban Nava (legal guardian) and Rosemary Torres (sister) are his emergency contact. Patient is a full code. Exam Narrative: Exam Narrative: GENERAL: Chronically ill-appearing and underweight, and in no acute distress. HEAD: Normocephalic, atraumatic. ENT: Dry mucous membranes CHEST: Coarse rales diffusely with increased respiratory rate HEART: Tachycardic and regular. Normal capillary refill. ABDOMEN: Soft, nontender, nondistended, normal appearing drains that are located in bilateral upper quadrants of the abdomen.. EXTREMITIES: Contractures of upper and lower extremities. SKIN: Warm, dry, wounds to left foot likely related pressure ulcers. They are black but not open or draining. NEURO: Patient is awake and alert. He will attempt to answer questions with thumbs up. Course Reevaluation(s) Reevaluation #1: Patient's family prefers patient to go to [facility]. They were contacted and they have no beds available and will not take any report on the patient without bed availability. Patient will have to be admitted to the hospitalist service here at [place]. I discussed this with the patient's family who is okay with the change in events. They report patient is a full code and should be intubated should he require it. Date: 09/01/20 Time: 16:29 Vital Signs Vital signs: Vital Signs Temperature 101.7 F H 09/01/20 14:53 Pulse Rate 140 H 09/01/20 14:53 Respiratory Rate 38 H 09/01/20 14:53 Blood Pressure 100/70 09/01/20 14:53 Pulse Oximetry 93 09/01/20 14:53 Temperature 98.5 F 09/01/20 20:00 Pulse Rate 123 H 09/01/20 21:38 Respiratory Rate 16 09/01/20 20:00 Blood Pressure 98/59 L 09/01
--- NOTE | 2020-09-01 18:21 | ADMGEN ---
This patient, King Sullivna, was admitted to IMU Room 207-01 at 1817 on 09/01/2020. Patient/family oriented to hospital policies and general routines including ID bracelet, bed and alarms, visiting hours, pain management, procedures, bathroom and other care routines, personal items, smoking policy, room service/diet, and visiting hours. Information on how to activate the Rapid Response Team has been discussed. Patient/Family are encouraged to report perceived risks to care and to ask questions if they do not understand what they are told or what they should do.
[2020-09-01] MEDS: LACTATED RINGERS 1,000 ML 125 ML IV CONT (18:28)
--- NOTE | 2020-09-01 19:30 | PM.IMHP ---
H&P: HPI History of Present Illness Date/Time: 09/01/20 19:30 Chief Complaint: Fever and respiratory distress. Narrative: This is an unfortunate 60-year-old male with multiple medical problems including chronic encephalopathy, dysphagia with both G-tube and J-tube in situ, dumping syndrome, hypertension, COPD, anemia, and several other comorbidities who presented to the emergency department earlier today via EMS from [facility] for evaluation of fever and respiratory distress. He is not able to provide any medical history given his chronic condition and as such all of the following is obtained via a review of his electronic medical records. It is noted that he has been hospitalized several times since the beginning of this year for aspiration pneumonia and UTI, and most recently he was discharged on August 17 after a month long stay in which he was treated for dehydration, pneumonia, and UTI. In any event, staff at [facility] report that he seemed to be short of breath and was hypoxic and thus they called EMS. He was febrile on EMS arrival with a temperature of 101.7? in the emergency department. Once again he was found to be quite dehydrated with evidence of pneumonia on chest x-ray and he is being admitted in this setting. At the time my evaluation he is alert and only said 1 or 2 words to me though they were not in response to questions I asked of him. He did not really follow any commands and he really only interacted by shaking his head when we talked about his readmission. Review of Systems Review of Systems: Narrative: A review of systems was attempted but was unable to be completed as the patient was not answering questions. He is chronically encephalopathic and is essentially nonverbal although he does say a few words here and there. He is also bed-bound and chronically contracted. Has indwelling Murphy catheter, J-tube, and G-tube. [facility] Past Medical History Medical History (Updated 09/01/20 @ 22:21 by Dot Strong PA-C) Anemia Anxiety Chronic obstructive pulmonary disease Depression Disorder of autonomic nervous system Dumping syndrome Dysphagia Patient has G-tube and J-tube in place. Encephalopathy chronic Gastroesophageal reflux disease Hydrocephalus Hypertension Paroxysmal tachycardia Surgical History Surgical History (Updated 09/01/20 @ 22:03 by Dot Strong PA-C) History of gastrostomy tube placement History of jejunostomy tube placement History of tracheostomy x2 Family History Family History Mother Endometrial cancer Father Hypertension Sibling Seizure Social History Social History (Updated 09/01/20 @ 22:05 by Dot Strong PA-C) Social History: Nonsmoker. Drank alcohol heavily in the past. Uncertain if he has ever used illicit substances. He is a resident at [facility]. Chronically debilitated, bedbound, and essentially nonverbal. Alban Nava (legal guardian) and Rosemary Torres (sister) are his emergency contact. Patient is a full code. Meds Home Medications and Allergies Home Medications Medication Instructions Recorded Confirmed Type ipratropium-albuterol 3 ml INHALATION QID PRN 05/09/20 09/01/20 History buspirone 10 mg FEEDING TUBE TID #90 tablet 05/22/20 09/01/20 Rx folic acid 1 mg FEEDING TUBE DAILY #30 tablet 05/22/20 09/01/20 Rx metoclopramide HCl 5 mg FEEDING TUBE ACHS #120 tablet 05/22/20 09/01/20 Rx acetaminophen 650 mg PO Q6H PRN 05/24/20 09/01/20 History Pulmozyme 2.5 mg INHALATION Q12HRT 30 Days 06/07/20 09/01/20 Rx #150 ml diltiazem HCl 60 mg FEEDING TUBE Q6HR #30 tablet 06/07/20 09/01/20 Rx famotidine 20 mg FEEDING TUBE BID 30 Days #60 06/07/20 09/01/20 Rx tablet Santyl 1 applic TOPICAL DAILY 07/20/20 09/01/20 History hydrocodone-acetaminophen 1 tablet PO TID PRN 07/20/20 09/01/20 History lorazepam [Ativan] 0.25 mg FEEDING TUBE HS 07/20/20 09/01/20 History p
[2020-09-01 21:44] LABS: Basophils Absolute Auto 0.1 K/mm3 (0.0-0.1); Basophils Percent Auto 0.5 % (0.2-1.2); Eosinophils Percent Auto 0.1 % (0-4.4); Hematocrit 34.2 % (42.0-52.0); Hemoglobin 9.8 g/dL (14.0-18.0); Immature Granulocyte Absolute 0.14 K/mm3 (0.00-0.031); Immature Granulocyte Percent A 0.8 % (0-0.5); Lymphocytes Absolute Auto 1.72 K/mm3 (0.9-3.2); Mean Corpuscular HGB Conc 28.7 g/dl (32-36); Mean Corpuscular Hemoglobin 24.8 pg (26-34); Mean Corpuscular Volume 86.6 fl (80-100); Monocytes Absolute Auto 1.3 K/mm3 (0.1-0.6); Monocytes Percent Auto 7.6 % (2.6-8.5); Neutrophils Absolute Auto 13.9 K/mm3 (1.3-6.7); Platelet Count Result 175 k/mm3 (150-375); Red Blood Count 3.95 M/mm3 (4.6-6.20); Red Cell Distribution Width 20.9 % (11.5-14.5); White Blood Count 17.1 K/mm3 (4.5-10.0)
[2020-09-01 21:56] LABS: Anion Gap 6 mmol/L (8-16); Blood Urea Nitrogen 55 mg/dL (9-20); Calcium 8.2 mg/dL (8.4-10.2); Carbon Dioxide 33 mmol/L (22-30); Chloride 113 mmol/L (98-107); Estimated CRCL calculation 52 ml/min; Estimated Glomerular Filt Rate > 60; Glucose 121 mg/dL (75-110); Potassium 3.6 mmol/L (3.4-5.0); Sodium 152 mmol/L (137-145)
[2020-09-01 23:32] LABS: Magnesium 2.2 mg/dL (1.6-2.3)
[2020-09-02] VITALS (21 sets, daily range): BP systolic 90–124; BP diastolic 44–62; PULSE 102–133; RESP 16–40; TEMP 36.3–37.9; O2SAT 94–99
[2020-09-02] MEDS: DEXTROSE 5%/0.45% SOD CHL 1,000 ML 75 ML IV CONT ×2 (00:52→15:25)
[2020-09-02 04:49] LABS: Hematocrit 32.2 % (42.0-52.0); Hemoglobin 9.2 g/dL (14.0-18.0); Immature Platelet Fraction Pct 11.2 % (0.9-11.2); Mean Corpuscular HGB Conc 28.6 g/dl (32-36); Mean Corpuscular Hemoglobin 24.5 pg (26-34); Mean Corpuscular Volume 85.9 fl (80-100); Platelet Count Result 196 k/mm3 (150-375); Red Blood Count 3.75 M/mm3 (4.6-6.20); Red Cell Distribution Width 20.8 % (11.5-14.5); White Blood Count 16.7 K/mm3 (4.5-10.0)
[2020-09-02] MEDS: METOCLOPRAMIDE HCL 5 MG TABLET FEED TUBE (06:23)
[2020-09-02 06:49] LABS: Anion Gap 4 mmol/L (8-16); Blood Urea Nitrogen 45 mg/dL (9-20); CRP 36.6 mg/dL (<1.0); Calcium 8.5 mg/dL (8.4-10.2); Carbon Dioxide 36 mmol/L (22-30); Chloride 113 mmol/L (98-107); Estimated CRCL calculation 53 ml/min; Estimated Glomerular Filt Rate > 60; Glucose 122 mg/dL (75-110); Magnesium 2.3 mg/dL (1.6-2.3); Potassium 3.4 mmol/L (3.4-5.0); Sodium 153 mmol/L (137-145)
[2020-09-02 06:51] LABS: Hemoglobin A1C 4.7 % (<5.7)
[2020-09-02] MEDS: IPRATROPIUM BR 0.02% INH SOLN 0.5 MG/2.5 ML VIAL INHALATION ×2 (08:26→21:11)
[2020-09-02] MEDS: ALBUTEROL SULFATE NEB 2.5 MG/0.5 ML INH INHALATION ×2 (08:26→21:11)
[2020-09-02] MEDS: DORNASE ALFA INH SOLN 1 MG/ML 2.5 ML AMP 2.5 MG INHALATION ×2 (08:26→21:11)
--- NOTE | 2020-09-02 09:06 | P.PNIM_ITS ---
Progress Note: A&P Assessment and Plan (1) Sepsis: Qualifiers: Sepsis acute organ dysfunction status: without acute organ dysfunction Sepsis type: sepsis due to unspecified organism Qualified Code(s): A41.9 - S epsis, unspecified organism Code(s): A41.9 - Sepsis, unspecified organism Status: Acute Assessment and Plan: Patient meets sepsis criteria with tachycardia, leukocytosis, relative hypotension. qSOFA score is 2. Lactic acid level normal. * Pneumonia verses infected pressure ulcers; right foot showing possible osteomyelitis * Blood cultures have been obtained and are pending. * Blood pressures have improved somwhat with IV fluids * Continue treatment with IV antibiotics as noted below (2) Pneumonia involving right lung: Code(s): J18.9 - Pneumonia, unspecified organism Status: Acute Assessment and Plan: Patient has history of aspiration pneumonia though he now has both G-tube and J- tube. * Received 1 dose of ceftriaxone and azithromycin in ED. * Continue Zosyn for possible aspiration which will also cover possible infected pressure ulcers. * Sputum to be attempted for culture. * He has been placed in isolation pending SARS-CoV-2 by PCR; pending * Initiate aspiration precautions, elevate head of bed. * G tube to set to int suctioning (3) Dehydration: Code(s): E86.0 - Dehydration Status: Acute Assessment and Plan: He is quite dry once again with elevated sodium and BUN. * Currently on D5 half normal saline. * Likely needs and increase in free water flushes at the retirement. (4) Hypernatremia: Code(s): E87.0 - Hyperosmolality and hypernatremia Status: Acute Assessment and Plan: Secondary to dehydration. Na stable at 153 * D5 half normal saline for now with close monitoring of sodium. (5) Chronic anemia: Code(s): D64.9 - Anemia, unspecified Status: Acute Assessment and Plan: Hemoglobin and hematocrit are stable on review of previous labs. No evidence of blood loss (6) Pressure ulcers of skin of multiple topographic sites: Code(s): L89.90 - Pressure ulcer of unspecified site, unspecified stage Status: Acute Assessment and Plan: Patient has multiple pressure ulcers but stage III ulcers on the right hip and right foot and unstageable wounds on the left foot. * The wound on the right foot looks like it may need to be debrided, possibly at bedside if possible; Surgery consulted and appreciate recommendations. Xray of right foot shows possible OM of right 4th metatarsal bone; will wait for Surgery assessment prior to obtaining additional imaging * He has been started on Zosyn for possible aspiration pneumonia as well as possible infected pressure ulcers. * Wound nurse consulted as well. (7) Person under investigation for COVID-19: Code(s): Z20.828 - Contact with and (suspected) exposure to other viral communicable diseases Status: Acute Assessment and Plan: The patient remains in isolation pending SARS-CoV-2 by PCR. (8) Dysphagia: Qualifiers: Dysphagia type: unspecified Qualified Code(s): R13.10 - Dysphagia, unspecified Code(s): R13.10 - Dysphagia, unspecified Status: Chronic Assessment and Plan: Cassie
--- NOTE | 2020-09-02 09:06 | PM.IMPN ---
Progress Note: A&P Assessment and Plan (1) Sepsis: Qualifiers: Sepsis acute organ dysfunction status: without acute organ dysfunction Sepsis type: sepsis due to unspecified organism Qualified Code(s): A41.9 - Sepsis, unspecified organism Code(s): A41.9 - Sepsis, unspecified organism Status: Acute Assessment and Plan: Patient meets sepsis criteria with tachycardia, leukocytosis, relative hypotension. qSOFA score is 2. Lactic acid level normal. Pneumonia verses infected pressure ulcers; right foot showing possible osteomyelitis Blood cultures have been obtained and are pending. Blood pressures have improved somwhat with IV fluids Continue treatment with IV antibiotics as noted below (2) Pneumonia involving right lung: Code(s): J18.9 - Pneumonia, unspecified organism Status: Acute Assessment and Plan: Patient has history of aspiration pneumonia though he now has both G-tube and J-tube. Received 1 dose of ceftriaxone and azithromycin in ED. Continue Zosyn for possible aspiration which will also cover possible infected pressure ulcers. Sputum to be attempted for culture. He has been placed in isolation pending SARS-CoV-2 by PCR; pending Initiate aspiration precautions, elevate head of bed. G tube to set to int suctioning (3) Dehydration: Code(s): E86.0 - Dehydration Status: Acute Assessment and Plan: He is quite dry once again with elevated sodium and BUN. Currently on D5 half normal saline. Likely needs and increase in free water flushes at the residential. (4) Hypernatremia: Code(s): E87.0 - Hyperosmolality and hypernatremia Status: Acute Assessment and Plan: Secondary to dehydration. Na stable at 153 D5 half normal saline for now with close monitoring of sodium. (5) Chronic anemia: Code(s): D64.9 - Anemia, unspecified Status: Acute Assessment and Plan: Hemoglobin and hematocrit are stable on review of previous labs. No evidence of blood loss (6) Pressure ulcers of skin of multiple topographic sites: Code(s): L89.90 - Pressure ulcer of unspecified site, unspecified stage Status: Acute Assessment and Plan: Patient has multiple pressure ulcers but stage III ulcers on the right hip and right foot and unstageable wounds on the left foot. The wound on the right foot looks like it may need to be debrided, possibly at bedside if possible; Surgery consulted and appreciate recommendations. Xray of right foot shows possible OM of right 4th metatarsal bone; will wait for Surgery assessment prior to obtaining additional imaging He has been started on Zosyn for possible aspiration pneumonia as well as possible infected pressure ulcers. Wound nurse consulted as well. (7) Person under investigation for COVID-19: Code(s): Z20.828 - Contact with and (suspected) exposure to other viral communicable diseases Status: Acute Assessment and Plan: The patient remains in isolation pending SARS-CoV-2 by PCR. (8) Dysphagia: Qualifiers: Dysphagia type: unspecified Qualified Code(s): R13.10 - Dysphagia, unspecified Code(s): R13.10 - Dysphagia, unspecified Status: Chronic Assessment and Plan: Chronic dysphagia with both G-tube and J-tube in place. Aspiration precautions. Continue strict NPO. G tube to int suction J tube for feeds/meds Elevate head of bed. (9) Acute respiratory failure with hypoxia: Code(s): J96.01 - Acute respiratory failure with hypoxia Status: Acute Assessment and Plan: Requiring 4 liters nasal cannula at this
[2020-09-02] MEDS: busPIRone HCL 10 MG TABLET FEED TUBE (09:44)
[2020-09-02] MEDS: COLLAGENASE OINT 30 GM TUBE 1 APPLIC TOPICAL (09:45)
[2020-09-02] MEDS: ENOXAPARIN 40 MG/0.4 ML SYRINGE SUB-Q (09:45)
[2020-09-02] MEDS: FOLIC ACID 1 MG TABLET FEED TUBE (09:45)
[2020-09-02] MEDS: HYDROcodone/acetaminophen (*CRX) 7.5-325 MG TABLET 1 TAB PO (09:56)
[2020-09-02] MEDS: DIGOXIN INJ 250 MCG/ML 2 ML AMP (*BKC) 125 MCG IV PUSH (10:06)
[2020-09-02 12:45] LABS: Glucose Point of Care 130 (65-105)
--- NOTE | 2020-09-02 17:13 | PC.NURSE ---
This patient, King Sullivan, was transferred to [facility] on 09/02/20 at 1710. Personal belongings sent with patient. Report given to Loretta CRAWFORD. Appropriate documentation sent with patient.
--- NOTE | 2020-09-02 17:31 | PC.NURSE ---
This patient, King Sullivan, was received from [[facility]] on 09/02/20 at 1720. Patient/family oriented to unit policies and routines
[2020-09-02] MEDS: ACETAMINOPHEN 650 MG SUPPOSITORY RECTAL (18:36)
[2020-09-02] MEDS: FAMOTIDINE 20 MG/2 ML VIAL IV PUSH (20:28)
[2020-09-03] VITALS (10 sets, daily range): BP systolic 102–122; BP diastolic 56–74; PULSE 97–109; RESP 16–24; TEMP 36.5–36.8; O2SAT 92–99; BMI 15.6
[2020-09-03 01:32] LABS: Glucose Point of Care 116 (65-105)
[2020-09-03] MEDS: DEXTROSE 5%/0.45% SOD CHL 1,000 ML 75 ML IV CONT ×2 (04:59→21:56)
[2020-09-03 06:07] LABS: Basophils Percent Auto 0.2 % (0.2-1.2); Eosinophils Absolute Auto 0.1 K/mm3 (0-0.3); Eosinophils Percent Auto 1.4 % (0-4.4); Hematocrit 30.1 % (42.0-52.0); Hemoglobin 8.6 g/dL (14.0-18.0); Immature Granulocyte Absolute 0.06 K/mm3 (0.00-0.031); Immature Granulocyte Percent A 0.6 % (0-0.5); Lymphocytes Absolute Auto 0.92 K/mm3 (0.9-3.2); Lymphocytes Percent Auto 9.8 % (18.3-44.2); Mean Corpuscular HGB Conc 28.6 g/dl (32-36); Mean Corpuscular Hemoglobin 24.9 pg (26-34); Mean Corpuscular Volume 87.2 fl (80-100); Monocytes Absolute Auto 0.6 K/mm3 (0.1-0.6); Monocytes Percent Auto 6.2 % (2.6-8.5); Neutrophils Absolute Auto 7.7 K/mm3 (1.3-6.7); Neutrophils Percent Auto 81.8 % (45.5-73.1); Platelet Count Result 158 k/mm3 (150-375); Red Blood Count 3.45 M/mm3 (4.6-6.20); Red Cell Distribution Width 20.4 % (11.5-14.5); White Blood Count 9.4 K/mm3 (4.5-10.0)
[2020-09-03 06:19] LABS: Anion Gap 4 mmol/L (8-16); Blood Urea Nitrogen 26 mg/dL (9-20); Calcium 8.5 mg/dL (8.4-10.2); Carbon Dioxide 33 mmol/L (22-30); Chloride 116 mmol/L (98-107); Estimated CRCL calculation 69 ml/min; Estimated Glomerular Filt Rate > 60; Glucose 119 mg/dL (75-110); Magnesium 2.1 mg/dL (1.6-2.3); Potassium 3.3 mmol/L (3.4-5.0); Sodium 153 mmol/L (137-145)
[2020-09-03 06:50] LABS: Glucose Point of Care 115 (65-105)
[2020-09-03 06:59] LABS: CRP 31.8 mg/dL (<1.0)
[2020-09-03] MEDS: DORNASE ALFA INH SOLN 1 MG/ML 2.5 ML AMP 2.5 MG INHALATION ×2 (08:03→20:23)
[2020-09-03 08:29] LABS: Glucose Point of Care 102 (65-105)
[2020-09-03] MEDS: ENOXAPARIN 40 MG/0.4 ML SYRINGE SUB-Q (10:23)
[2020-09-03] MEDS: FAMOTIDINE 20 MG/2 ML VIAL IV PUSH (10:23)
[2020-09-03] MEDS: DIGOXIN INJ 250 MCG/ML 2 ML AMP (*BKC) 125 MCG IV PUSH (10:24)
[2020-09-03] MEDS: COLLAGENASE OINT 30 GM TUBE 1 APPLIC TOPICAL (10:25)
--- NOTE | 2020-09-03 12:48 | PCDIET ---
Nutrition consult received: Underweight related to inadequate oral intake and dumping syndrome as evidence by BMI 15.6 Goal: Total intake will meet estimated nutrition needs Additional Notes: Recommend slow progression to goal of EN via jtube due to low body weight. G tube to suction. Goal should be met over 48 hours. Recommend higher protein formula and elemental formula due to dumping syndrome and j tube feeding. Recommend starting Vital 1.2 at 10ml/hr, advancing 10ml q 4 hrs to goal of 30ml/hr day one. If electrolytes remain stable, and pt tolerates feedings, recommend advancing 10ml q 4 hrs to goal of 60ml/hr day two. At goal, pt will receive 1584kcals, 99g protein, and 1070ml of free water, creating anabolic state for wt gnosticism. Recommend water flush of 65ml q 4 hrs if no other fluids provided. Tube feeding tolerance, labs, weight, BMs every T/F
[2020-09-03 12:56] LABS: Sodium 152 mmol/L (137-145)
[2020-09-03 14:40] LABS: Glucose Point of Care 106 (65-105)
--- NOTE | 2020-09-03 15:04 | PM.IMPN ---
Progress Note: A&P Assessment and Plan (1) Sepsis: Qualifiers: Sepsis acute organ dysfunction status: without acute organ dysfunction Sepsis type: sepsis due to unspecified organism Qualified Code(s): A41.9 - Sepsis, unspecified organism Code(s): A41.9 - Sepsis, unspecified organism Status: Acute Assessment and Plan: Patient meets sepsis criteria with tachycardia, leukocytosis, fevers relative hypotension. Lactic acid level normal. -suspect Pneumonia verses infected pressure ulcers; right foot showing possible osteomyelitis. New CT shows possible appendicitis -Blood cultures have been obtained and are pending. -white blood cell count has improved with IV antibiotics and he has been afebrile for 24 hours -= vancomycin was added to cover possible healthcare acquired pneumonia -patient appears to be improving (2) Pneumonia involving right lung: Code(s): J18.9 - Pneumonia, unspecified organism Status: Acute Assessment and Plan: Patient has history of aspiration pneumonia though he now has both G-tube and J-tube. -Continue Zosyn and vancomycin for possible aspiration and or hospital-acquired pneumonia which will also cover possible infected pressure ulcers. -Sputum to be attempted for culture. -He has been placed in isolation pending SARS-CoV-2 by PCR; pending -Initiate aspiration precautions, elevate head of bed. G tube to set to int suctioning, await to restart tube feedings depending on CT findings since he possibly has appendicitis/colitis (3) Dehydration: Code(s): E86.0 - Dehydration Status: Acute Assessment and Plan: He is quite dry once again with elevated sodium and BUN. -Currently on D5 half normal saline and sodium is slowly improving -may consider starting D5W if the patient does not improve more by tomorrow -Likely needs and increase in free water flushes at the [facility], dietitian consulted (4) Hypernatremia: Code(s): E87.0 - Hyperosmolality and hypernatremia Status: Acute Assessment and Plan: Secondary to dehydration. Na stable at 152 -D5 half normal saline for now with close monitoring of sodium. As above (5) Chronic anemia: Code(s): D64.9 - Anemia, unspecified Status: Acute Assessment and Plan: Hemoglobin and hematocrit are stable on review of previous labs. No evidence of blood loss (6) Pressure ulcers of skin of multiple topographic sites: Code(s): L89.90 - Pressure ulcer of unspecified site, unspecified stage Status: Acute Assessment and Plan: Patient has multiple pressure ulcers but stage III ulcers on the right hip and right foot and unstageable wounds on the left foot. -The wound on the right foot looks like it may need to be debrided, possibly at bedside if possible; Surgery consulted and appreciate recommendations. Xray of right foot shows possible OM of right 4th metatarsal bone -unable to do bone scan or MRI due to his contractions -continue vanc and Zosyn (7) Person under investigation for COVID-19: Code(s): Z20.828 - Contact with and (suspected) exposure to other viral communicable diseases Status: Acute Assessment and Plan: The patient remains in isolation pending SARS-CoV-2 by PCR. (8) Dysphagia: Qualifiers: Dysphagia type: unspecified Qualified Code(s): R13.10 - Dysphagia, unspecified Code(s): R13.10 - Dysphagia, unspecified Status: Chronic Assessment and Plan: Chronic dysphagia with both G-tube and J-tube in place. -Aspiration precautions. -Continue strict NPO and if CT of the abdomen pelvis looks okay, consider starting tube feedings tomorrow morning at a low rate -G tube to int suction, J tube for feeds/meds -Elevate head of bed. (9) Acute respiratory failure with hypoxia: Code(s): J96.01 - Acute respiratory failure with hypoxia Status: Acute Assess
[2020-09-03] MEDS: KCL 20 MEQ/SW 100 ML 100 ML 50 MEQ IVPB (16:13)
[2020-09-03 18:45] LABS: Glucose Point of Care 88 (65-105)
[2020-09-03 19:29] LABS: SARS-CoV-2 RNA PCR Negative
--- NOTE | 2020-09-03 19:49 | PC.NURSE ---
This pt awaiting abdomenal CT scan to verify G and J tube placements to be able to feed and medicate. CT scan showed possible appendicitis. Confirmed with Magdalena who said not to use tubes at this time, await results from CT with contrast. Results back at 1600. Called Magdalena and left that results up and awaiting orders. PA report read as awaiting input from surgery.
[2020-09-04] VITALS (7 sets, daily range): BP systolic 106–130; BP diastolic 64–80; PULSE 84–110; RESP 16–18; TEMP 36.4–36.7; O2SAT 95–99
[2020-09-04 01:10] LABS: Glucose Point of Care 109 (65-105)
[2020-09-04 06:09] LABS: Basophils Percent Auto 0.1 % (0.2-1.2); Eosinophils Absolute Auto 0.4 K/mm3 (0-0.3); Eosinophils Percent Auto 4.8 % (0-4.4); Hematocrit 27.7 % (42.0-52.0); Hemoglobin 7.8 g/dL (14.0-18.0); Immature Granulocyte Absolute 0.03 K/mm3 (0.00-0.031); Immature Granulocyte Percent A 0.4 % (0-0.5); Immature Platelet Fraction Pct 11.6 % (0.9-11.2); Lymphocytes Absolute Auto 1.04 K/mm3 (0.9-3.2); Lymphocytes Percent Auto 14.2 % (18.3-44.2); Mean Corpuscular HGB Conc 28.2 g/dl (32-36); Mean Corpuscular Hemoglobin 24.1 pg (26-34); Mean Corpuscular Volume 85.5 fl (80-100); Mean Platelet Volume 13.3 fl (7.4-10.4); Monocytes Absolute Auto 0.4 K/mm3 (0.1-0.6); Monocytes Percent Auto 5.9 % (2.6-8.5); Neutrophils Absolute Auto 5.5 K/mm3 (1.3-6.7); Neutrophils Percent Auto 74.6 % (45.5-73.1); Platelet Count Result 197 k/mm3 (150-375); Red Blood Count 3.24 M/mm3 (4.6-6.20); Red Cell Distribution Width 19.8 % (11.5-14.5); White Blood Count 7.3 K/mm3 (4.5-10.0)
[2020-09-04 06:26] LABS: Anion Gap 4 mmol/L (8-16); Blood Urea Nitrogen 13 mg/dL (9-20); Calcium 8.3 mg/dL (8.4-10.2); Carbon Dioxide 31 mmol/L (22-30); Chloride 114 mmol/L (98-107); Estimated CRCL calculation 66 ml/min; Estimated Glomerular Filt Rate > 60; Glucose 139 mg/dL (75-110); Magnesium 1.7 mg/dL (1.6-2.3); Phosphorus 2.6 mg/dL (2.5-4.5); Potassium 2.7 mmol/L (3.4-5.0); Sodium 149 mmol/L (137-145)
[2020-09-04 06:31] LABS: Glucose Point of Care 121 (65-105)
[2020-09-04 07:05] LABS: Anisocytosis 1+ (NORMAL); Hypochromasia 1+ (NORMAL); Platelet Estimate Adequate (Adequate)
[2020-09-04] MEDS: FAMOTIDINE 20 MG/2 ML VIAL IV PUSH ×3 (07:36→21:46)
[2020-09-04] MEDS: DORNASE ALFA INH SOLN 1 MG/ML 2.5 ML AMP 2.5 MG INHALATION ×2 (08:16→21:15)
[2020-09-04] MEDS: ENOXAPARIN 40 MG/0.4 ML SYRINGE SUB-Q (09:15)
[2020-09-04] MEDS: DIGOXIN INJ 250 MCG/ML 2 ML AMP (*BKC) 125 MCG IV PUSH (09:16)
[2020-09-04] MEDS: COLLAGENASE OINT 30 GM TUBE 1 APPLIC TOPICAL (09:17)
[2020-09-04] MEDS: DEXTROSE 5%/0.45% SOD CHL 1,000 ML 75 ML IV CONT (11:11)
--- NOTE | 2020-09-04 11:39 | PM.CNGS ---
Assessment and Plan Assessment and plan (1) Pressure ulcers of skin of multiple topographic sites: Code(s): L89.90 - Pressure ulcer of unspecified site, unspecified stage Status: Acute Assessment and Plan: The patient is bed-bound and contracted with multiple pressure ulcers. The open pressure ulcers on the right lateral foot have some yellow necrotic slough in the wound bed, but also has healthy granulation tissue forming in the wounds. They do not appear to be infected and do not require urgent debridement. These wounds actually appear to have improved since last seen on his previous hospitalization. We will continue to treat these with topical enzymatic debridement with Santyl dressing changes and monitor the wounds. The changes on the right foot x-ray of the 4th metatarsal appear to be more likely from the chronic wounds or bone destruction rather than osteomyelitis. We would recommend stopping any antibiotic coverage for osteomyelitis at this point. If the Hospitalist feels it is necessary to continue treating his pneumonia, then hopefully antibiotic coverage can be narrowed. The right hip pressure ulcer also appears stable with no purulent drainage or foul odor. This does not appear infected, but would also benefit from enzymatic debridement. We will continue the Santyl dressing changes for the open ulcers of the right hip and right lateral foot. All other wounds appear stable and we can continue with applying the Mepilex borders for protection and prevention on the bony prominences. Continue to turn the patient frequently and attempt offloading pressure to the wounds when positioning. Thank you for allowing us to see the patient in consultation. (2) Colitis: Code(s): K52.9 - Noninfective gastroenteritis and colitis, unspecified Status: Acute Assessment and Plan: CT scan of just the abdomen initially obtained to evaluate G-tube and J-tube. Now CT of the abdomen and pelvis suggests cecal colitis and he is having associated diarrhea. This appears to be likely antibiotic-associated colitis. We will initiate oral metronidazole for treatment. Would recommend narrowing antibiotics if possible. (3) Pneumonia involving right lung: Code(s): J18.9 - Pneumonia, unspecified organism Status: Acute Assessment and Plan: Acute respiratory failure with hypoxia initially on admission, which has since resolved and he is now stable on room air. COVID negative. Could narrow the spectrum of the antibiotics towards covering for the pneumonia if felt necessary by the Hospitalist. Management per primary team. (4) Dehydration: Code(s): E86.0 - Dehydration Status: Acute Assessment and Plan: Hypernatremia and elevated BUN on admission. Seems to be improving with adjustment of IV fluids. Potassium 2.7 this am, has received IV KCL supplementation today. Repeat labs already ordered. Management per Hospitalist. (5) Encephalopathy chronic: Code(s): G93.49 - Other encephalopathy Status: Chronic (6) Dysphagia: Qualifiers: Dysphagia type: unspecified Qualified Code(s): R13.10 - Dysphagia, unspecified Code(s): R13.10 - Dysphagia, unspecified Status: Chronic Assessment and Plan: G-tube to gravity. J-tube in place. Both functioning well and patient tolerating tube feedings. (7) COPD (chronic obstructive pulmonary disease): Code(s): J44.9 - Chronic obstructive pulmonary disease, unspecified Status: Acute Additional Plan I have discussed the patient's case and plan of care with Dr. Robles. History of Present Illness Consult details Consult date: 09/04/20 Reason for consult: wound care (Multiple pressure ulcers with concern for need of possible debridement) Requesting physician: Dot Strong, PAKayC Narrative: This is a 60-year-old male who is chronically bed-bound and essentially nonverbal with multiple medical problems including but not limit
[2020-09-04 12:17] LABS: Glucose Point of Care 79 (65-105)
--- NOTE | 2020-09-04 13:12 | PCNFU ---
Nutrition Follow-Up Complete: Underweight related to inadequate oral intake and dumping syndrome as evidence by BMI 15.6 Goal: Total intake will meet estimated nutrition needs Progressing towards goal. We will continue with current goal. Pt current nutrition is Vital AF 1.2 at 30 ml/hr. Nutrition recommendation: Vital AR 1.2 at 30 ml/hr advancing q 4 hours to goal rate of 60 ml/hr. Last recorded weight is 46.3 kg,up from 42.6 kg on admit. Bowel Motility:+BM reported, Diarrhea. Labs Reviewed:Ca 8.3, Na 149,K 2.7 Meds Noted:Folic Acid,Atrovent,Vancomycin. Additional Notes: Nutrition follow up today. Spoke with nursing today,patient is tolerating tube feeding of Vital AF 1.2 at 30 ml/hr. Orders for tube feeding to be advanced by 10 ml/hr q 4 hours to goal rate of 60 ml/hr which will provide patient with 1584 kcals/99 gms protein/1071 ml water with Free water flush of 65 ml q 4 hours(additional 390 ml water). Surgery consult for possible debridement. Monitoring: Tube feeding tolerance, labs, weight, BMs every T/F
[2020-09-04] MEDS: metroNIDAZOLE 250 MG TABLET 500 MG FEED TUBE ×2 (13:56→21:46)
--- NOTE | 2020-09-04 15:24 | PM.IMPN ---
Progress Note: A&P Assessment and Plan (1) Sepsis: Qualifiers: Sepsis acute organ dysfunction status: without acute organ dysfunction Sepsis type: sepsis due to unspecified organism Qualified Code(s): A41.9 - Sepsis, unspecified organism Code(s): A41.9 - Sepsis, unspecified organism Status: Acute Assessment and Plan: Interval history : Patient meets sepsis criteria with tachycardia, leukocytosis, fevers relative hypotension. Lactic acid level normal. -suspect Pneumonia verses infected pressure ulcers; right foot showing possible osteomyelitis. New CT shows possible appendicitis - pt having diarrhea flagy added (2) Pneumonia involving right lung: Code(s): J18.9 - Pneumonia, unspecified organism Status: Acute Assessment and Plan: Patient has history of aspiration pneumonia though he now has both G-tube and J-tube. -Continue Zosyn and vancomycin for possible aspiration and or hospital-acquired pneumonia which will also cover possible infected pressure ulcers. COVID is negative CT findings since he possibly has appendicitis/colitis, pt is not for surgery seen by surgery team (3) Dehydration: Code(s): E86.0 - Dehydration Status: Resolved Assessment and Plan: Can stop fluids Dehydration resolved. (4) Hypernatremia: Code(s): E87.0 - Hyperosmolality and hypernatremia Status: Acute Assessment and Plan: Secondary to dehydration. Sodium is 149 (5) Chronic anemia: Code(s): D64.9 - Anemia, unspecified Status: Acute Assessment and Plan: Hemoglobin and hematocrit are @7, continue to watch (6) Pressure ulcers of skin of multiple topographic sites: Code(s): L89.90 - Pressure ulcer of unspecified site, unspecified stage Status: Acute Assessment and Plan: Interval history Patient has multiple pressure ulcers but stage III ulcers on the right hip and right foot and unstageable wounds on the left foot. -continue vanc and Zosyn (7) Person under investigation for COVID-19: Code(s): Z20.828 - Contact with and (suspected) exposure to other viral communicable diseases Status: Ruled-out Assessment and Plan: Covid is negative (8) Dysphagia: Qualifiers: Dysphagia type: unspecified Qualified Code(s): R13.10 - Dysphagia, unspecified Code(s): R13.10 - Dysphagia, unspecified Status: Chronic Assessment and Plan: Chronic dysphagia with both G-tube and J-tube in place. -Aspiration precautions. (9) Acute respiratory failure with hypoxia: Code(s): J96.01 - Acute respiratory failure with hypoxia Status: Acute Assessment and Plan: Resolved, secondary to aspiration/pneumonitis (10) Abnormal CT of the abdomen: Code(s): R93.5 - Abnormal findings on diagnostic imaging of other abdominal regions, including retroperitoneum Status: Acute Assessment and Plan: Concerning for colitis/appendicitis but the patient does not really have any abdominal pain No need for surgery Treat colitis with flagyl Subjective Date/time seen: 09/04/20 15:24 Interval history: Interval history: Pt is a relatively nonverbal patient here for fevers suspect osteomyelitis and pneumonia. Pt having some liquidy stool, continue tube feeds, continue care. Pt seen by surgery Review of Systems Review of Systems: All systems reviewed & are unremarkable except as noted in HPI and below Exam Narrative: Exam Narrative: General: Chronically ill patient, comfortable , pleasant non verbal Neck: supple Neuro: Alert non verbal legs are contracted. CV:RRR Resp: Normal breath sounds Abd: Soft, non distended. Patient did not appear to be in distress with any palpation of the abdomen. G and J tubes intact. Positive bowel sounds Extremities: legs contracted. Objective Data Vital S
[2020-09-04 15:32] LABS: Glucose Point of Care 81 (65-105)
[2020-09-04 18:28] LABS: Glucose Point of Care 90 (65-105)
--- NOTE | 2020-09-04 20:01 | PC.NURSE ---
Dr. Robles came in to see pt's wounds to evaluate for possible osteomyelitis. Pt had just stooled. Stool, see GI notes, strong odor and suspicious smell. Asked Dr. Robles if we needed to send a sample for testing, who advised no specimen needed to be sent at this time.
[2020-09-05] VITALS (7 sets, daily range): BP systolic 117–134; BP diastolic 73–80; PULSE 83–97; RESP 14–18; TEMP 36.2–36.8; O2SAT 96–100
[2020-09-05 02:04] LABS: Glucose Point of Care 75 (65-105)
[2020-09-05] MEDS: metroNIDAZOLE 250 MG TABLET 500 MG FEED TUBE ×3 (06:08→21:28)
[2020-09-05 06:25] LABS: Glucose Point of Care 73 (65-105)
[2020-09-05 06:40] LABS: Hematocrit 31.8 % (42.0-52.0); Hemoglobin 9.2 g/dL (14.0-18.0); Mean Corpuscular HGB Conc 28.9 g/dl (32-36); Mean Corpuscular Hemoglobin 24.5 pg (26-34); Mean Corpuscular Volume 84.6 fl (80-100); Platelet Count Result 123 k/mm3 (150-375); Red Blood Count 3.76 M/mm3 (4.6-6.20); Red Cell Distribution Width 19.5 % (11.5-14.5); White Blood Count 5.8 K/mm3 (4.5-10.0)
[2020-09-05 06:47] LABS: Anion Gap 8 mmol/L (8-16); Blood Urea Nitrogen 13 mg/dL (9-20); Carbon Dioxide 24 mmol/L (22-30); Chloride 114 mmol/L (98-107); Estimated CRCL calculation 103 ml/min; Estimated Glomerular Filt Rate > 60; Glucose 87 mg/dL (75-110); Potassium 3.5 mmol/L (3.4-5.0); Sodium 146 mmol/L (137-145)
[2020-09-05] MEDS: HYDROcodone/acetaminophen (*CRX) 7.5-325 MG TABLET 1 TAB FEED TUBE (08:52)
[2020-09-05] MEDS: DIGOXIN INJ 250 MCG/ML 2 ML AMP (*BKC) 125 MCG IV PUSH (08:54)
[2020-09-05] MEDS: FAMOTIDINE 20 MG/2 ML VIAL IV PUSH ×2 (08:55→21:27)
[2020-09-05] MEDS: ENOXAPARIN 40 MG/0.4 ML SYRINGE SUB-Q (08:55)
[2020-09-05] MEDS: COLLAGENASE OINT 30 GM TUBE 1 APPLIC TOPICAL (08:55)
[2020-09-05] MEDS: DORNASE ALFA INH SOLN 1 MG/ML 2.5 ML AMP 2.5 MG INHALATION ×2 (10:16→20:58)
[2020-09-05 12:02] LABS: Glucose Point of Care 96 (65-105)
--- NOTE | 2020-09-05 13:05 | PM.IMPN ---
Progress Note: A&P Assessment and Plan (1) Sepsis: Qualifiers: Sepsis acute organ dysfunction status: without acute organ dysfunction Sepsis type: sepsis due to unspecified organism Qualified Code(s): A41.9 - Sepsis, unspecified organism Code(s): A41.9 - Sepsis, unspecified organism Status: Acute Assessment and Plan: Interval history : Patient meets sepsis criteria with tachycardia, leukocytosis, fevers relative hypotension. Lactic acid level normal. -suspect Pneumonia verses infected pressure ulcers; right foot showing possible osteomyelitis. New CT shows possible appendicitis/ colitis - pt having diarrhea flagy added yesterday (2) Pneumonia involving right lung: Code(s): J18.9 - Pneumonia, unspecified organism Status: Acute Assessment and Plan: Patient has history of aspiration pneumonia though he now has both G-tube and J-tube. -Continue Zosyn and vancomycin for possible aspiration and or hospital-acquired pneumonia which will also cover possible infected pressure ulcers. COVID is negative CT findings since he possibly has appendicitis/colitis, pt is not for surgery seen by surgery team Wcc are normal, cultures appear negative, full report awaiting (3) Dehydration: Code(s): E86.0 - Dehydration Status: Resolved Assessment and Plan: Can stop fluids Dehydration resolved. (4) Hypernatremia: Code(s): E87.0 - Hyperosmolality and hypernatremia Status: Acute Assessment and Plan: Secondary to dehydration. Sodium is 146 (5) Chronic anemia: Code(s): D64.9 - Anemia, unspecified Status: Acute Assessment and Plan: Hemoglobin and hematocrit are @9 (6) Pressure ulcers of skin of multiple topographic sites: Code(s): L89.90 - Pressure ulcer of unspecified site, unspecified stage Status: Acute Assessment and Plan: Interval history Patient has multiple pressure ulcers but stage III ulcers on the right hip and right foot and unstageable wounds on the left foot. -continue vanc and Zosyn (7) Person under investigation for COVID-19: Code(s): Z20.828 - Contact with and (suspected) exposure to other viral communicable diseases Status: Ruled-out Assessment and Plan: Covid is negative (8) Dysphagia: Qualifiers: Dysphagia type: unspecified Qualified Code(s): R13.10 - Dysphagia, unspecified Code(s): R13.10 - Dysphagia, unspecified Status: Chronic Assessment and Plan: Chronic dysphagia with both G-tube and J-tube in place. -Aspiration precautions. (9) Acute respiratory failure with hypoxia: Code(s): J96.01 - Acute respiratory failure with hypoxia Status: Acute Assessment and Plan: Resolved, secondary to aspiration/pneumonitis (10) Abnormal CT of the abdomen: Code(s): R93.5 - Abnormal findings on diagnostic imaging of other abdominal regions, including retroperitoneum Status: Acute Assessment and Plan: Concerning for colitis/appendicitis but the patient does not really have any abdominal pain No need for surgery Treat colitis with flagyl Subjective Date/time seen: 09/05/20 13:05 Interval history: Interval history: Pt is a relatively nonverbal patient here for fevers suspect osteomyelitis and pneumonia. Pt not had any liquidy stool today. Continue tube feeds, continue care. Review of Systems Review of Systems: All systems reviewed & are unremarkable except as noted in HPI and below Exam Narrative: Exam Narrative: General: Chronically ill patient, comfortable , pleasant non verbal Neck: supple Neuro: Alert non verbal legs are contracted. CV:RRR Resp: Normal breath sounds Abd: Soft, non distended. Patient did not appear to be in distress with any palpation of the abdomen. G and J tubes intact. Positive bowel sounds Extrem
[2020-09-05 17:52] LABS: Glucose Point of Care 80 (65-105)
[2020-09-06] VITALS (8 sets, daily range): BP systolic 122–126; BP diastolic 68–77; PULSE 85–106; RESP 14–28; TEMP 36.4–36.5; O2SAT 94–100
[2020-09-06 00:39] LABS: Glucose Point of Care 71 (65-105)
[2020-09-06] MEDS: metroNIDAZOLE 250 MG TABLET 500 MG FEED TUBE ×3 (05:37→21:30)
[2020-09-06 06:22] LABS: Glucose Point of Care 77 (65-105)
[2020-09-06 06:35] LABS: Anion Gap 4 mmol/L (8-16); Blood Urea Nitrogen 12 mg/dL (9-20); Calcium 7.5 mg/dL (8.4-10.2); Carbon Dioxide 28 mmol/L (22-30); Chloride 112 mmol/L (98-107); Estimated CRCL calculation 109 ml/min; Estimated Glomerular Filt Rate > 60; Glucose 93 mg/dL (75-110); Sodium 144 mmol/L (137-145)
[2020-09-06] MEDS: DORNASE ALFA INH SOLN 1 MG/ML 2.5 ML AMP 2.5 MG INHALATION ×2 (08:35→20:30)
[2020-09-06] MEDS: FAMOTIDINE 20 MG/2 ML VIAL IV PUSH ×2 (09:46→21:30)
[2020-09-06] MEDS: ENOXAPARIN 40 MG/0.4 ML SYRINGE SUB-Q (09:46)
[2020-09-06] MEDS: DIGOXIN INJ 250 MCG/ML 2 ML AMP (*BKC) 125 MCG IV PUSH (09:47)
[2020-09-06] MEDS: COLLAGENASE OINT 30 GM TUBE 1 APPLIC TOPICAL (09:48)
--- NOTE | 2020-09-06 13:37 | PM.IMPN ---
Progress Note: A&P Assessment and Plan (1) Sepsis: Qualifiers: Sepsis acute organ dysfunction status: without acute organ dysfunction Sepsis type: sepsis due to unspecified organism Qualified Code(s): A41.9 - Sepsis, unspecified organism Code(s): A41.9 - Sepsis, unspecified organism Status: Resolved Assessment and Plan: - pt having diarrhea flagy added yesterday (2) Pneumonia involving right lung: Code(s): J18.9 - Pneumonia, unspecified organism Status: Resolved Assessment and Plan: Patient has history of aspiration pneumonia though he now has both G-tube and J-tube. -Continue Zosyn and vancomycin for possible aspiration . COVID is negative CT findings since he possibly has appendicitis/colitis, pt is not for surgery seen by surgery team Wcc are normal, cultures appear negative, full report awaiting (3) Dehydration: Code(s): E86.0 - Dehydration Status: Resolved Assessment and Plan: Can stop fluids (4) Hypernatremia: Code(s): E87.0 - Hyperosmolality and hypernatremia Status: Acute Assessment and Plan: Sodium is 144 (5) Chronic anemia: Code(s): D64.9 - Anemia, unspecified Status: Acute Assessment and Plan: Hemoglobin and hematocrit are @9 (6) Pressure ulcers of skin of multiple topographic sites: Code(s): L89.90 - Pressure ulcer of unspecified site, unspecified stage Status: Resolved Assessment and Plan: Interval history Patient has multiple pressure ulcers but stage III ulcers on the right hip and right foot and unstageable wounds on the left foot. continue supportive dressing changes (7) Person under investigation for COVID-19: Code(s): Z20.828 - Contact with and (suspected) exposure to other viral communicable diseases Status: Ruled-out Assessment and Plan: Covid is negative (8) Dysphagia: Qualifiers: Dysphagia type: unspecified Qualified Code(s): R13.10 - Dysphagia, unspecified Code(s): R13.10 - Dysphagia, unspecified Status: Chronic Assessment and Plan: Chronic dysphagia with both G-tube and J-tube in place. -Aspiration precautions. (9) Acute respiratory failure with hypoxia: Code(s): J96.01 - Acute respiratory failure with hypoxia Status: Resolved Assessment and Plan: Resolved, secondary to aspiration/pneumonitis (10) Abnormal CT of the abdomen: Code(s): R93.5 - Abnormal findings on diagnostic imaging of other abdominal regions, including retroperitoneum Status: Acute Assessment and Plan: Concerning for colitis/appendicitis but the patient does not really have any abdominal pain No need for surgery Treat colitis with flagyl some diarrhea ongoing Subjective Date/time seen: 09/06/20 13:37 Interval history: Interval history: Pt is a relatively nonverbal patient here for fevers suspect osteomyelitis and pneumonia. Pt had some liquidy stool today. Continue tube feeds, continue care of wounds, hopeful dc soon in 1-2 days time. Review of Systems Review of Systems: ROS unobtainable: Yes unobtainable due to medical condition Exam Narrative: Exam Narrative: General: Chronically ill patient, comfortable , pleasant non verbal Neck: supple Neuro: Alert non verbal legs are contracted. CV:RRR Resp: Normal breath sounds Abd: Soft, non distended. Patient did not appear to be in distress with any palpation of the abdomen. G and J tubes intact. Positive bowel sounds Extremities: legs contracted. Objective Data Vital Signs Vital Signs: Vital Signs - 24 hr 09/05/20 14:00 09/05/20 20:00 09/05/20 20:58 Temperature 36.8 C Pulse Rate 97 97 84 Respiratory Rate 14 18 18 Blood Pressure 125/80 Pulse Oximetry 100 100 09/05/20 22:00 09/06/20 06:00 09/06/20 08:36 Temperature 36.2
[2020-09-06] MEDS: POTASSIUM CHLORIDE 20 MEQ PACKET (FOR LIQUID) 40 MEQ FEED TUBE (14:23)
[2020-09-06 16:49] LABS: Glucose Point of Care 81 (65-105)
[2020-09-06 16:49] LABS: Glucose Point of Care 76 (65-105)
[2020-09-07] MEDS: metroNIDAZOLE 250 MG TABLET 500 MG FEED TUBE ×2 (04:52→13:32)
[2020-09-07 06:00] VITALS: BP 155/93; PULSE 115; RESP 16; TEMP 36.9; O2SAT 99
[2020-09-07 08:03] VITALS: PULSE 100; RESP 18
[2020-09-07] MEDS: DORNASE ALFA INH SOLN 1 MG/ML 2.5 ML AMP 2.5 MG INHALATION (08:03)
[2020-09-07 08:25] VITALS: PULSE 102; RESP 18
[2020-09-07 09:28] VITALS: PULSE 66
[2020-09-07] MEDS: COLLAGENASE OINT 30 GM TUBE 1 APPLIC TOPICAL (09:28)
[2020-09-07] MEDS: ENOXAPARIN 40 MG/0.4 ML SYRINGE SUB-Q (09:28)
[2020-09-07] MEDS: FAMOTIDINE 20 MG/2 ML VIAL IV PUSH (09:28)
[2020-09-07] MEDS: POTASSIUM CHLORIDE 20 MEQ PACKET (FOR LIQUID) 40 MEQ FEED TUBE (09:28)
[2020-09-07] MEDS: DIGOXIN INJ 250 MCG/ML 2 ML AMP (*BKC) 125 MCG IV PUSH (09:28)
--- NOTE | 2020-09-07 12:11 | PCNFU ---
Nutrition Follow-Up Complete: Underweight related to inadequate oral intake and dumping syndrome as evidence by BMI 15.6 Goal: Total intake will meet estimated nutrition needs Progressing towards goal. We will continue current goal. Pt current nutrition is Vital AF 1.2 at 60 ml/hr. Nutrition recommendation: If formula is not available at [facility] recommend Glucerna 1.2 at 70 ml/hr. Last recorded weight is 49 kg, up from admit weight 42.6 kg. Bowel Motility:+BM reported 8 Labs Reviewed:/8 labs Cr 0.4,K 3.0,Ca 7.5 Meds Noted:Lovenox,Flagyl,Pepcid,KCL powder,Reglan. Additional Notes: Nutrition follow up. Patient continues to tolerate tube feeding of Vital 1.2 AF at 60 ml/hr, which is providing 1584 kcals,99 gms protein, 1071 ml water. Pressure Ulcers noted, increased protein required. Patient has enteral feedings via jtube. G tube to suction. As recommended above if NH is unable to get elemental formula would recommend Glucerna 1.2 at 70 ml/hr. Monitoring: Tube feeding tolerance, labs, weight, BMs every T/F
[2020-09-07 12:16] LABS: Glucose Point of Care 87 (65-105)
--- NOTE | 2020-09-07 12:47 | PM.DS ---
DS: Admitting Diagnosis Admitting Diagnosis Admitting Diagnosis: Fever and respiratory distress. DS: Discharge Diagnosis Discharge Diagnosis (1) Sepsis: Qualifiers: Sepsis acute organ dysfunction status: without acute organ dysfunction Sepsis type: sepsis due to unspecified organism Qualified Code(s): A41.9 - Sepsis, unspecified organism Code(s): A41.9 - Sepsis, unspecified organism Status: Resolved Assessment and Plan: Interval history: Pt is a relatively nonverbal patient here for fevers suspect aspiration pneumonia. Pt was on Zosyn and vancomycin for possible aspiration which has been stopped. Pt vitals are stable now, he appears back to his baseline. (2) Pneumonia involving right lung: Code(s): J18.9 - Pneumonia, unspecified organism Status: Resolved Assessment and Plan: Patient has history of aspiration pneumonia though he now has both G-tube and J-tube. -Pt was on Zosyn and vancomycin for possible aspiration which has been stopped. COVID is negative CT findings since he possibly has appendicitis/colitis, pt is not for surgery seen by surgery team Wcc are normal, cultures appear negative (3) Dehydration: Code(s): E86.0 - Dehydration Status: Resolved Assessment and Plan: Can stop fluids (4) Hypernatremia: Code(s): E87.0 - Hyperosmolality and hypernatremia Status: Acute Assessment and Plan: Sodium is 144 (5) Chronic anemia: Code(s): D64.9 - Anemia, unspecified Status: Acute Assessment and Plan: Hemoglobin and hematocrit are @9 (6) Pressure ulcers of skin of multiple topographic sites: Code(s): L89.90 - Pressure ulcer of unspecified site, unspecified stage Status: Resolved Assessment and Plan: Interval history Patient has multiple pressure ulcers but stage III ulcers on the right hip and right foot and unstageable wounds on the left foot. continue supportive dressing changes (7) Person under investigation for COVID-19: Code(s): Z20.828 - Contact with and (suspected) exposure to other viral communicable diseases Status: Ruled-out Assessment and Plan: Covid is negative (8) Dysphagia: Qualifiers: Dysphagia type: unspecified Qualified Code(s): R13.10 - Dysphagia, unspecified Code(s): R13.10 - Dysphagia, unspecified Status: Chronic Assessment and Plan: Chronic dysphagia with both G-tube and J-tube in place. -Aspiration precautions. (9) Acute respiratory failure with hypoxia: Code(s): J96.01 - Acute respiratory failure with hypoxia Status: Resolved Assessment and Plan: Resolved, secondary to aspiration/pneumonitis (10) Abnormal CT of the abdomen: Code(s): R93.5 - Abnormal findings on diagnostic imaging of other abdominal regions, including retroperitoneum Status: Acute Assessment and Plan: Concerning for colitis/appendicitis but the patient does not really have any abdominal pain No need for surgery Treat colitis with Flagyl and potassium supplements, some diarrhea ongoing little only now DS: Summary Hospital Course Hospital Course: Interval history: Pt is a relatively nonverbal patient here for fevers suspect aspiration pneumonia. Pt was on Zosyn and vancomycin for possible aspiration which has been stopped. Pt vitals are stable now, he appears back to his baseline. Time Spent with Patient Time attestation: Total time spent providing and/or coordinating discharge services:40 minutes on day of dischrage Exam Narrative: Exam Narrative: General: Chronically ill patient, comfortable , pleasant non verbal Neck: supple Neuro: Alert non verbal legs are contracted. CV:RRR Resp: Normal breath sounds Abd: Soft, non distended. Patient did not appear to be in distress with any palpation of the abdomen. G an
[2020-09-07 14:00] VITALS: BP 134/89; PULSE 50; RESP 16; TEMP 36.1; O2SAT 96
== END 2020-09-07 16:49 | DRG 871 ==
LOC: ANHED 17:32 → ANHIMU 17:36 → ANH3MEDSUR 09-03 07:43 → ANHIMU 09-11 14:03
PROVIDERS: Family Medicine; Physician Assistant; Admitting Provider Internal Medicine; Emergency Provider Emergency Medicine; PCP Internal Medicine; Visit Provider Physician Assistant
DX: A41.9 Sepsis, unspecified organism (principal); L89.213 Pressure ulcer of right hip, stage 3; L89.893 Pressure ulcer of other site, stage 3; J96.01 Acute respiratory failure with hypoxia; J69.0 Pneumonitis due to inhalation of food and vomit; G93.49 Other encephalopathy; E87.0 Hyperosmolality and hypernatremia; Z20.822 Contact with and (suspected) exposure to COVID-19; L89.890 Pressure ulcer of other site, unstageable; K52.9 Noninfective gastroenteritis and colitis, unspecified; E86.0 Dehydration; J44.9 Chronic obstructive pulmonary disease, unspecified; R13.10 Dysphagia, unspecified; K31.89 Other diseases of stomach and duodenum; K21.9 Gastro-esophageal reflux disease without esophagitis; I10 Essential (primary) hypertension; D64.9 Anemia, unspecified; Z93.1 Gastrostomy status; Z93.4 Other artificial openings of gastrointestinal tract status; Z97.8 Presence of other specified devices; Z74.01 Bed confinement status; Z87.09 Personal history of other diseases of the respiratory system
CPT/HCPCS: 36415; 36600; 71045; 73620; 74150; 74177; 80048; 80053; 81001; 82375; 82805; 82948; 83036; 83050; 83605; 83735; 84100; 84132; 84295; 84443; 85025; 85027; 85055; 85610; 85730; 86140; 87040; 87086; 93005; 94640; 96361; 96365; 96367; 99285; A9270; C9803; G0378; J0131; J0456; J0696; J1160; J1650; J2543; J3370; J3480; J7030; J7120; Q9967; U0003; U0005